=== PATIENT | female | born 1970 | race Caucasian/White ===

== ENCOUNTER 2017-12-07 05:29 | Emergency (ER) | payer BC, SELFPAY ==
[2017-12-07 05:37] VITALS: BP 172/109; PULSE 76; RESP 16; TEMP 36.9; O2SAT 99; BMI 30.9
--- NOTE | 2017-12-07 05:51 | XR_ITS ---
XR chest 2V Ordering Physician: Obdulio Cherry MD Patient Age: 47 years: Female HISTORY: ITS.REASON: epigastric pain Epigastric pain. Nonsmoker TECHNIQUE: PA and lateral chest COMPARISON :Previous 2 view chest from 03/31/2016 series FINDINGS No interval change. Nothing definitely acute. There may be some additional basilar atelectasis particularly at the right base with less optimal inspiration today. The upper lung bermudez appear stable and clear. Mild vascular engorgement but no CHF no pleural effusion. No pneumothorax. Heart normal size with aristeo and mediastinal structures unremarkable. Chest wall and T-spine intact IMPRESSION: Stable chest with no significant findings. There may be some scant additional basilar atelectasis versus 03/31/2016 chest film
--- NOTE | 2017-12-07 05:53 | XR_ITS ---
XR acute abdomen series Ordering Physician: Obdulio Cherry MD Patient Age: 47 years: Female HISTORY: ITS.REASON: epigastric pain TECHNIQUE: Flat and upright views of abdomen. COMPARISON :Chest film from today previous CT abdomen from 2013 FINDINGS . Nonspecific bowel gas pattern. No free air beneath the diaphragm. No bowel dilatation or obstruction. Generous stool is seen at the right colon with moderate gas and stool throughout the transverse and left colon. Gas most generous at the distal transverse colon and hepatic flexure but no bowel dilatation or distention of significance. Scant if any small bowel gas. Negative small bowel pattern. No organomegaly. No significant calcifications. Scattered small phleboliths at the pelvic basin IMPRESSION: Nonspecific bowel gas pattern. No bowel dilatation or obstruction. Moderate stool right colon. Moderate gaseous transverse colon most evident at the hepatic flexure
[2017-12-07 06:10] LABS: Basophils % 0.6 % (0.1-2.0); Eosinophils # 0.1 K/mm3 (0.0-0.4); Eosinophils % 2.4 % (0.1-12.0); Hematocrit 44.3 % (37.0-47.0); Hemoglobin 14.9 g/dL (12.2-16.2); Lymphocytes # 1.3 K/mm3 (0.7-4.5); Lymphocytes % 28.5 K/mm3 (10-50); Mean Corpuscular HGB Conc 33.6 g/dL (31.8-35.4); Mean Corpuscular Hemoglobin 29.3 pg (27.0-31.2); Mean Corpuscular Volume 87.1 fl (81-99); Mean Platelet Volume 7.8 fl (7.4-10.4); Monocytes # 0.3 K/mm3 (0.1-1.0); Neutrophils % 62.7 % (37.0-80.0); Platelet Count 201 K/mm3 (142-424); Red Blood Count 5.09 M/mm3 (4.20-5.40); Red Cell Distribution Width 13.8 % (11.5-17.5); White Blood Count 4.7 K/mm3 (4.8-10.8)
[2017-12-07 06:31] LABS: Anion Gap 11.9 mEq/L (5-15); Blood Urea Nitrogen 13 mg/dL (7-18); Carbon Dioxide 30 mmol/L (21.0-32.0); Chloride 105 mmol/L (98-107); Creatine Kinase 98 U/L (26-192); Creatinine Clearance Estimated 116 mL/min (0-300); Creatinine,Serum 0.77 mg/dL (0.55-1.02); Estimated Glomerular Filt Rate 81 ml/min (>60); GFR (African American) 98 ML/MIN (>60); Glucose 109 mg/dL (74-106); Potassium 3.9 mmoL/L (3.5-5.1); Sodium 143 mmol/L (136-145)
[2017-12-07 06:32] LABS: Alanine Aminotransferase 29 U/L (12-78); Albumin Level 4.3 gm/dL (3.4-5.0); Alkaline Phosphatase 135 U/L (46-116); Amylase 49 U/L (25-125); Aspartate Amino Transferase 15 U/L (15-37); Bilirubin,Total 0.6 mg/dL (0.2-1.0); Calcium 9.6 mg/dL (8.5-10.1); Globulin 4.5 gm/dl (1.3-3.2); Lipase 256 u/L (73-393); Total Protein,Serum 8.8 gm/dL (6.4-8.2)
--- NOTE | 2017-12-07 06:34 | HMH.EDNVD ---
ED Disposition Clinical Impression: Esophageal spasm Disposition: Home, Self-Care Condition on Discharge: Good Instructions: DI for Nausea -- Adult Additional Instructions: call pcp for follow up Referrals: Caridad Oliver APRN [Primary Care Provider] - - Critical Care Critical Care Time: No Attestation: On 12/07/17, the high probability of a clinically significant, sudden or life threatening deterioration of the following system(s) required my full and direct attention, intervention and personal management. The time I documented below is in addition to time spent performing reported procedures but includes the following listed in this critical care notation. Medical Decision Making - Medical Records Medical records reviewed: Yes: I reviewed the patient's medical records. Vital Signs: 12/07/17 05:37 12/07/17 07:18 Temperature 98.4 F Temperature Source Oral Pulse Rate [Right Brachial] 76 79 Respiratory Rate 16 20 Blood Pressure [Right Arm] 172/109 132/84 Blood Pressure Mean [Right Arm] 130 100 Blood Pressure Source [Right Arm] Automatic Cuff Automatic Cuff Blood Pressure Position [Right Arm] Sitting Supine 02 Sat by Pulse Oximetry 99 100 Oxygen Delivery Method Room Air - Lab Data Lab results reviewed: Yes: I reviewed the patient's lab results. Lab Results 12/07/17 06:00: WBC 4.7 L, RBC 5.09, Hgb 14.9, Hct 44.3, MCV 87.1, MCH 29.3, MCHC 33.6, RDW 13.8, Plt Count 201, MPV 7.8, Neut % (Auto) 62.7, Lymph % (Auto) 28.5, [place] % (Auto) 6.0, Eos % (Auto) 2.4, Baso % (Auto) 0.6, Neut # (Auto) 3.0, Lymph # (Auto) 1.3, [place] # (Auto) 0.3, Eos # (Auto) 0.1, Baso # (Auto) 0.0 12/07/17 06:00: Sodium 143, Potassium 3.9, Chloride 105, Carbon Dioxide 30, Anion Gap 11.9, BUN 13, Creatinine 0.77, Estimated Creat Clear 116, Estimated GFR 81, Est GFR ( Amer) 98, Glucose 109 H, Calcium 9.6, Total Bilirubin 0.6, AST 15, ALT 29, Alkaline Phosphatase 135 H, Total Creatine Kinase 98, CK-MB (CK-2) 0.9, CK-MB (CK-2) Rel Index 0.9, Troponin I < 0.02, Total Protein 8.8 H, Albumin 4.3, Globulin 4.5 H, Albumin/Globulin Ratio 1.0 L, Amylase 49, Lipase 256 Result diagrams: 12/07/17 06:00 12/07/17 06:00 Orders (Tests/Meds): ED MEDICATIONS Generic Name Dose Route Start Last Admin Trade Name Freq PRN Reason Stop Dose Admin Sodium Chloride 1,000 mls @ 250 mls/hr 12/07/17 06:00 12/07/17 06:02 Sod Chlor 0.9% 1000ml Bag IV 01/06/18 05:59 250 mls/hr .Q4H SOURAV Administration Discontinued Medications Generic Name Dose Route Start Last Admin Trade Name Freq PRN Reason Stop Dose Admin Famotidine 20 mg 12/07/17 05:51 12/07/17 06:02 Pepcid 20mg/2ml Vial IV 12/07/17 05:52 20 mg ONCE ONE Administration Metoclopramide HCl 5 mg 12/07/17 05:51 12/07/17 06:02 Reglan 10mg/2ml Vial IVP 12/07/17 05:52 5 mg ONCE ONE Administration Ondansetron HCl 4 mg 12/07/17 05:51 12/07/17 06:02 Zofran 4mg/2ml Vial IV 12/07/17 05:52 4 mg ONCE ONE Administration ORDERS Category Date Time Status CT abdomen pelvis wo con Stat Cat Scan 12/07/17 07:23 Ordered Acute abdomen XR series [XR acute abdomen series] Stat Exams 12/07/17 05:53 Taken XR chest 2V Stat Exams 12/07/17 05:51 Taken ECG Request by /Ganga Stat Y 12/07/17 05:51 Ordered - Radiology Data #1 Image(s): Chest, Abdomen Image Reviewed: Yes I reviewed the patient's radiology image Preliminary Findings: Normal/NAD - ECG Data Tracing #1 I reviewed this ECG and interpreted as documented below: Normal Sinus Rhythm: Yes Ischemic changes: non-specific ST-T wave changes - Gabriel Inquiry Pt receiving controlled substance: No Nausea/Vomiting/Diarrhea HPI - General Chief complaint: Nausea/Vomiting/Diarrhea Time Seen by Provider: 12/07/17 06:35 Mode of Arrival: Ambulatory Source of Information: Patient, Spouse, Medical Record Limitations: No Limitations Description of Symptoms (Recalled from ER Triage Doc. by RN): Lud[place]
[2017-12-07 06:44] LABS: CKMB Relative Index 0.9 U/L (0-4.0); Creatine Kinase MB 0.9 mg/ml (0.0-3.6); Troponin I < 0.02 ng/ml (0.00-0.06)
[2017-12-07 07:18] VITALS: BP 132/84; PULSE 79; RESP 20; O2SAT 100
[2017-12-07 07:37] VITALS: BP 132/84; PULSE 78; RESP 18; TEMP 36.7; O2SAT 99
== END 2017-12-07 07:37 | disposition home or self-care (01) ==
PROVIDERS: Emergency Provider Emergency Medicine; Family Provider Nurse Practitioner Family; PCP Nurse Practitioner Family
DX: K22.4 Dyskinesia of esophagus (principal); Z79.899 Other long term (current) drug therapy
CPT/HCPCS: 71046; 74021; 80053; 82150; 82550; 82553; 83690; 84484; 85025; 93005; 93041; 96365; 96374; 96375; 96376; 99283; J2405

== ENCOUNTER → 2018-03-29 09:12 | Outpatient (CLI) | payer BC, SELFPAY ==
[2018-03-29 09:35] LABS: Basophils # 0.1 K/mm3 (0-0.2); Basophils % 0.8 % (0.1-2.0); Eosinophils # 0.1 K/mm3 (0.0-0.4); Hematocrit 47.8 % (37.0-47.0); Hemoglobin 15.5 g/dL (12.2-16.2); Lymphocytes # 1.8 K/mm3 (0.7-4.5); Lymphocytes % 31.4 K/mm3 (10-50); Mean Corpuscular HGB Conc 32.4 g/dL (31.8-35.4); Mean Corpuscular Hemoglobin 28.5 pg (27.0-31.2); Mean Corpuscular Volume 87.8 fl (81-99); Mean Platelet Volume 7.7 fl (7.4-10.4); Monocytes # 0.3 K/mm3 (0.1-1.0); Monocytes % 5.3 % (1.7-9.3); Neutrophils # 3.4 K/mm3 (1.8-7.8); Neutrophils % 60.5 % (37.0-80.0); Platelet Count 266 K/mm3 (142-424); Red Blood Count 5.45 M/mm3 (4.20-5.40); Red Cell Distribution Width 14.2 % (11.5-17.5); White Blood Count 5.6 K/mm3 (4.8-10.8)
--- NOTE | 2018-03-29 09:41 | MM_ITS ---
MM Dig screening mamm BI w/CAD CAD Screening ORDERING PHYSICIAN : Leonora Hansen PATIENT AGE: 47 years GENDER: Female HISTORY. Routine screening mammogram no new complaints noncontributory family history COMPARISON: Previous mammograms: January 2014 and December 2012 & June 2011 . Also right mammogram from August 2014.: TECHNIQUE: Standard CC and MLO images were obtained. R2 CAD reviewed. FINDINGS: Moderate density breast. Diffuse scattered moderate fibroglandular elements No significant new findings when compared to prior studies. Slight regression of fibroglandular elements throughout both breast, when compared to 2014 RIGHT BREAST:No new findings. Follow up one year Subtle stable density right retroareolar region unchanged since multiple prior studies LEFT BREAST:No new findings follow-up in one year IMPRESSION:... Negative Stable bilateral mammogram. No significant new findings been bilateral follow-up in one year recommended BI-RADS Category: 1 Negative RECOMMENDED FOLLOW-UP: 1YR - 1 YEAR FOLLOW-UP (A letter has been sent to the patient regarding results of the study.)
[2018-03-29 13:02] LABS: Alanine Aminotransferase 27 U/L (12-78); Albumin/Globulin Ratio 1.1 (1.1-1.8); Alkaline Phosphatase 117 U/L (46-116); Anion Gap 17.5 mEq/L (5-15); Aspartate Amino Transferase 19 U/L (15-37); Bilirubin,Total 0.5 mg/dL (0.2-1.0); Blood Urea Nitrogen 15 mg/dL (7-18); Calcium 9.8 mg/dL (8.5-10.1); Carbon Dioxide 24 mmol/L (21.0-32.0); Chloride 106 mmol/L (98-107); Chol/HDL Ratio 4.5 (1-3.5); Cholesterol 211 mg/dL (140-200); Creatinine,Serum 0.74 mg/dL (0.55-1.02); Estimated Glomerular Filt Rate 85 ml/min (>60); GFR (African American) 103 ML/MIN (>60); Globulin 3.8 gm/dl (1.3-3.2); Glucose 78 mg/dL (74-106); HDL Cholesterol 47 mg/dL (29-89); LDL Cholesterol 128 mg/dL (0-130); Potassium 4.5 mmoL/L (3.5-5.1); Sodium 143 mmol/L (136-145); Total Protein,Serum 7.8 gm/dL (6.4-8.2); Triglycerides 179 mg/dL (30-200); VLDL Cholesterol 36 mg/dL (0-40)
[2018-03-30 08:24] LABS: Hep A Ab, IgM Negative (Negative); Hepatitis B Core Antibody IgM Negative (Negative); Hepatitis B Surface Antigen Negative (Negative)
[2018-03-30 12:51] LABS: Hepatitis C Antibody <0.1 s/co ratio (0.0-0.9)
== END ==
PROVIDERS: Family Provider Nurse Practitioner Family; PCP Nurse Practitioner Family; Visit Provider Nurse Practitioner Family
DX: Z12.31 Encounter for screening mammogram for malignant neoplasm of breast (principal); Z00.00 Encounter for general adult medical examination without abnormal findings; Z20.5 Contact with and (suspected) exposure to viral hepatitis; E78.1 Pure hyperglyceridemia; K21.0 Gastro-esophageal reflux disease with esophagitis
CPT/HCPCS: 36415; 77067; 80053; 80061; 80074; 85025

== ENCOUNTER → 2018-06-03 15:26 | Outpatient (CLI) | payer BC, SELFPAY ==
--- NOTE | 2018-06-03 15:27 | US_ITS ---
US transvaginal HISTORY: Pelvic pain, painful intercourse ITS.REASON: pelvic pain ORDERING PHYSICIAN: Papito Gomez MD PATIENT AGE: 48 years Comparison: None FINDINGS: There has been a prior hysterectomy and bilateral oophorectomy. The vaginal cuff has an unremarkable appearance. No pelvic mass or abnormal fluid collection is evident. IMPRESSION: Prior hysterectomy and oophorectomy. Otherwise negative pelvic ultrasound
== END ==
PROVIDERS: Family Provider Nurse Practitioner Family; PCP Nurse Practitioner Family; Visit Provider Obstetrics & Gynecology
DX: R10.2 Pelvic and perineal pain (principal)
CPT/HCPCS: 76830

== ENCOUNTER → 2018-06-28 16:03 | Outpatient (CLI) | payer BC, SELFPAY ==
[2018-06-28 16:07] LABS: Microscopic, Urine URINE MICROSCOPIC (MICROSCOPIC)
[2018-06-28 16:20] LABS: Basophils % 0.6 % (0.1-2.0); Eosinophils # 0.1 K/mm3 (0.0-0.4); Hematocrit 40.8 % (37.0-47.0); Hemoglobin 13.6 g/dL (12.2-16.2); Lymphocytes # 1.7 K/mm3 (0.7-4.5); Lymphocytes % 28.9 K/mm3 (10-50); Mean Corpuscular HGB Conc 33.3 g/dL (31.8-35.4); Mean Corpuscular Hemoglobin 29.9 pg (27.0-31.2); Mean Corpuscular Volume 89.6 fl (81-99); Mean Platelet Volume 8.4 fl (7.4-10.4); Monocytes # 0.3 K/mm3 (0.1-1.0); Monocytes % 5.2 % (1.7-9.3); Neutrophils # 3.8 K/mm3 (1.8-7.8); Neutrophils % 64.3 % (37.0-80.0); Platelet Count 232 K/mm3 (142-424); Red Blood Count 4.55 M/mm3 (4.20-5.40); Red Cell Distribution Width 13.9 % (11.5-17.5); White Blood Count 5.9 K/mm3 (4.8-10.8)
[2018-06-28 17:00] LABS: Alanine Aminotransferase 25 U/L (12-78); Albumin Level 4.1 gm/dL (3.4-5.0); Alkaline Phosphatase 95 U/L (46-116); Anion Gap 10.6 mEq/L (5-15); Aspartate Amino Transferase 15 U/L (15-37); Bilirubin,Total 0.4 mg/dL (0.2-1.0); Blood Urea Nitrogen 13 mg/dL (7-18); Carbon Dioxide 28 mmol/L (21.0-32.0); Chloride 108 mmol/L (98-107); Creatinine,Serum 0.69 mg/dL (0.55-1.02); Estimated Glomerular Filt Rate 92 ml/min (>60); GFR (African American) 111 ML/MIN (>60); Glucose 91 mg/dL (74-106); Potassium 4.6 mmoL/L (3.5-5.1); Sodium 142 mmol/L (136-145)
[2018-06-28 17:12] LABS: Albumin/Globulin Ratio 1.3 (1.1-1.8); Globulin 3.1 gm/dl (1.3-3.2); Total Protein,Serum 7.2 gm/dL (6.4-8.2)
[2018-06-28 18:07] LABS: Appearance,Urine CLEAR (Clear); Bilirubin,Urine Negative (Negative); Blood, Urine Negative (Negative); Color,Urine YELLOW (Yellow); Glucose,Urine (UA) Negative (Negative); Ketones,Urine Negative (Negative); Leukocyte Esterase,Urine Negative (Negative); Nitrate,Urine Negative (Negative); Protein,Urine Negative (Negative); Specific Gravity, Urine <= 1.005 (1.005-1.030); Urobilinogen,Urine 0.2 EU/dl (0.2)
[2018-06-28 18:25] LABS: Bacteria,Urine Trace /lpf; Squamous Epithelial Cell,Urine Occasional #/hpf (0-5); WBC,Urine Occasional #/hpf (0-3)
== END ==
PROVIDERS: PCP Nurse Practitioner Family; Visit Provider Obstetrics & Gynecology
DX: Z01.818 Encounter for other preprocedural examination (principal); R10.2 Pelvic and perineal pain; N73.6 Female pelvic peritoneal adhesions (postinfective)
CPT/HCPCS: 36415; 80053; 81001; 85025

== ENCOUNTER → 2018-10-29 13:48 | Outpatient (CLI) | payer BC, SELFPAY ==
[2018-10-29 14:30] LABS: Basophils % 0.5 % (0.1-2.0); Eosinophils # 0.1 K/mm3 (0.0-0.4); Eosinophils % 1.1 % (0.1-12.0); Hemoglobin 12.9 g/dL (12.2-16.2); Lymphocytes # 1.6 K/mm3 (0.7-4.5); Lymphocytes % 30.9 % (10-50); Mean Corpuscular HGB Conc 33.1 g/dL (31.8-35.4); Mean Corpuscular Hemoglobin 29.6 pg (27.0-31.2); Mean Corpuscular Volume 89.3 fl (81-99); Mean Platelet Volume 7.7 fl (7.4-10.4); Monocytes # 0.3 K/mm3 (0.1-1.0); Monocytes % 5.6 % (1.7-9.3); Neutrophils # 3.2 K/mm3 (1.8-7.8); Neutrophils % 61.9 % (37.0-80.0); Platelet Count 260 K/mm3 (142-424); Red Blood Count 4.37 M/mm3 (4.20-5.40); Red Cell Distribution Width 13.9 % (11.5-17.5); White Blood Count 5.1 K/mm3 (4.8-10.8)
[2018-10-29 17:49] LABS: Anion Gap 13.2 mEq/L (5-15); Blood Urea Nitrogen 10 mg/dL (7-18); Calcium 8.8 mg/dL (8.5-10.1); Carbon Dioxide 27 mmol/L (21.0-32.0); Chloride 104 mmol/L (98-107); Estimated Glomerular Filt Rate 77 ml/min (>60); GFR (African American) 93 ML/MIN (>60); Glucose 90 mg/dL (74-106); Potassium 4.2 mmoL/L (3.5-5.1); Sodium 140 mmol/L (136-145)
== END ==
PROVIDERS: Visit Provider Surgery
DX: Z90.49 Acquired absence of other specified parts of digestive tract (principal)
CPT/HCPCS: 36415; 80048; 85025

== ENCOUNTER → 2020-03-22 15:37 | Outpatient (CLI) | payer BC, SELFPAY ==
[2020-03-22 21:15] LABS: Coronavirus 19 IgG Antibody Negative (Negative); Coronavirus 19 IgM Antibody Negative (Negative)
== END ==
PROVIDERS: Visit Provider Surgery
DX: Z01.818 Encounter for other preprocedural examination (principal)
CPT/HCPCS: 36415; 86328

== ENCOUNTER 2020-03-23 07:11 | Day surgery (SDC) | payer BC, SELFPAY ==
[2020-03-23] VITALS (16 sets, daily range): BP systolic 102–121; BP diastolic 48–80; PULSE 73–88; RESP 15–18; TEMP 36.1–36.4; O2SAT 92–99; BMI 31.3
--- NOTE | 2020-03-23 10:43 | P.PN_ITS ---
[facility] Anesthesia Checklist - Patient Identification Patient Identification: Arm Band - Structural Data Admitted From: Home Planned Operative Procedure/s: I&D right axillary hidratinitis Consent for Planned Operative Procedure(s) Verified: Yes Verified Documents: Surgical Consent, History and Physical - NPO Status Verified Time NPO: 00:00 - Additional verifications Anesthesia Reactions: No Hx Blood Transfusions: No Blood Transfusion Reaction: No - Airway Assessment C-Spine Mobility Assessed: Yes (mp2) TMJ Mobility Assessed: Yes Dentition: Good Dentition - Neurological Assessment Level of Consciousness: Awake, Alert - Anesthesia Plan Anesthesia Risk discussed: Yes Anesthesia Plan: Verified ASA Class: II Anesthesia Type: General [facility] History I have reviewed the patient's past medical history: Yes Medical History: Reports:: Gastroesophageal Reflux Disease(GERD), Hepatitis, MRSA (2016- buttock) Denies:: Cancer, Diabetes Mellitus Type 1, Diabetes Mellitus Type 2, Internal Pacemaker, Seizures *Have you ever received a pneumonia vaccine?: No *Have you received a flu vaccine this season?: No Other Medical History: Reports: Other. Denies: Blood Transfusion Reaction Anesthesia experience/problems:: nac Laterality Cases: Bilateral: Carpal Tunnel Release Other Surgeries: Yes: Appendectomy, , Hysterectomy-Total, Tubal Ligation, Other. No: Pacemaker Amputation: No Fractures: No - *Social History Smoking Status: Never smoker Alcohol Intake: never Substance Use Type: denies use *Occupational Status:: employed Housing: house Household Members: significant other *Travel in the last 8 weeks: None Family Hx:: Cancer, Coronary Artery Disease, Diabetes
--- NOTE | 2020-03-23 10:48 | HMH.OPNOTE ---
Date of procedure: 03/23/20 Pre-op Diagnosis:: Abscessed right axillary hidradenitis Post-op Diagnosis:: Same Procedure performed:: Incision and drainage of abscess right axillary hidradenitis Surgeon:: Jeb Mares MD PASTER SUPERVISOR:: Raf Sofia Anesthesia: LMA Estimated blood loss (mL): 5 Operative findings:: Four small abscess pockets Operative note:: After informed consent was obtained the patient was taken to the operating room and placed in the supine position. General anesthesia with laryngeal mask airway was achieved. The right axilla was prepped and draped in a sterile fashion. After infiltration with local anesthetic small elliptical incisions were made around the for central areas of fluctuance. Fluid was obtained for Gram stain/culture from the largest of these 4 pockets of purulence. The 4 cavities were carefully evacuated of all contents and packed with Kerlix after hemostasis was achieved with electrocautery. Dressings were applied and the patient was transferred to recovery in stable condition after removal of her laryngeal mask airway. Condition: stable Disposition: PACU Specimens:: Fluid for Gram stain/culture Complications:: No immediate
--- NOTE | 2020-03-23 10:59 | P.PN_ITS ---
[facility] Anesthesia Record Part I Intake, IV Amount: 400 Estimated blood loss (mL): 5 Urine output (mL): 0 Blood Pressure: 102/48 SaO2: 92 Pulse Rate: 86 Respiratory Rate: 16 Temperature: 97.4 F Patient is:: Drowsy, Stable Stable to PACU at:: 10:55
--- NOTE | 2020-03-23 11:10 | PC.NURSE ---
1057-oral airway removed at this time, 3l/nc in place, vss
--- NOTE | 2020-03-23 15:06 | PC.NURSE ---
1142-detailed report called to RONY Mcwilliams 1145-pt transported to post op via stretcher with luz elena rails up per RONY Victoria, pt left in care of RONY Mcwilliams pt stable
--- NOTE | 2020-03-23 15:48 | P.PN_ITS ---
[facility] Anesthesia Record Part II Discharge Time: 11:45 Destination: Surgical Day Care (OP Surgery) PACU nurse assessment reviewed?: Yes Patient Condition:: Good Anesthesia Complications:: None Swallowing reflex intact?: Yes Cyanosis?: No Blood Pressure: 108/75 Pulse Rate: 79 Temperature: 97.6 F Mental Status: Alert & Oriented Pain level:: 4 Nausea and/or vomitting:: None Intake, IV Amount: 0
== END 2020-03-23 12:30 | disposition home or self-care (01) ==
LOC: OR 07:12
PROVIDERS: PCP Internal Medicine Adolescent Medicine; Visit Provider Surgery
PROC: (CPT 10061; principal; 2020-03-23 08:30)
DX: L73.2 Hidradenitis suppurativa (principal); L02.411 Cutaneous abscess of right axilla; Z87.19 Personal history of other diseases of the digestive system; Z90.710 Acquired absence of both cervix and uterus; Z88.6 Allergy status to analgesic agent; Z79.899 Other long term (current) drug therapy
CPT/HCPCS: 10061; 87070; 87075; 87077; 87186; 87205; 96374; J2405

== ENCOUNTER 2020-03-28 10:37 | Outpatient (CLI) | payer BC, SELFPAY | END 2020-03-28 11:15 | disposition home or self-care (01) | LOC: INF 10:37 | PROVIDERS: Visit Provider Nurse Practitioner | DX: L73.2 Hidradenitis suppurativa (principal); Z48.01 Encounter for change or removal of surgical wound dressing | CPT/HCPCS: G0463 ==

== ENCOUNTER → 2020-03-29 10:39 | Outpatient (CLI) | payer BC, SELFPAY | PROVIDERS: Visit Provider Surgery | DX: Z48.01 Encounter for change or removal of surgical wound dressing (principal); L73.2 Hidradenitis suppurativa | CPT/HCPCS: G0463 ==

== ENCOUNTER 2020-03-30 08:40 | Outpatient (CLI) | payer BC, SELFPAY ==
--- NOTE | 2020-03-30 08:45 | PC.NURSE ---
0845-REMOVED DRESSING FROM RIGHT AXILLA. IRRIGATED 4 WOUNDS WITH NS. REPACKED WITH DRY GAUZE, COVERED WITH 2 DRY 4X4'S. AND TAPED INTO PLACE.
== END 2020-03-30 09:00 | disposition home or self-care (01) ==
LOC: INF 08:43
PROVIDERS: PCP Internal Medicine Adolescent Medicine; Visit Provider Surgery
DX: L73.2 Hidradenitis suppurativa (principal); Z48.01 Encounter for change or removal of surgical wound dressing
CPT/HCPCS: G0463

== ENCOUNTER 2020-03-31 13:07 | Outpatient (CLI) | payer BC, SELFPAY ==
[2020-03-31 13:27] VITALS: BP 115/72; PULSE 76; RESP 16; O2SAT 99
== END 2020-03-31 13:55 | disposition home or self-care (01) ==
LOC: INF 13:08
PROVIDERS: PCP Internal Medicine Adolescent Medicine; Visit Provider Surgery
DX: L73.2 Hidradenitis suppurativa (principal)
CPT/HCPCS: G0463

== ENCOUNTER 2020-04-01 12:59 | Outpatient (CLI) | payer BC, SELFPAY ==
[2020-04-01 13:13] VITALS: BP 110/70; PULSE 73; RESP 16; O2SAT 95
== END 2020-04-01 13:40 | disposition home or self-care (01) ==
LOC: INF 13:00
PROVIDERS: PCP Internal Medicine Adolescent Medicine; Visit Provider Surgery
DX: L73.2 Hidradenitis suppurativa (principal); Z48.01 Encounter for change or removal of surgical wound dressing
CPT/HCPCS: G0463

== ENCOUNTER 2020-04-02 10:56 | Outpatient (CLI) | payer BC, SELFPAY | END 2020-04-02 11:10 | disposition home or self-care (01) | LOC: INF 10:56 | PROVIDERS: Visit Provider Surgery | DX: L73.2 Hidradenitis suppurativa (principal); Z48.01 Encounter for change or removal of surgical wound dressing | CPT/HCPCS: G0463 ==

== ENCOUNTER 2020-04-04 12:06 | Outpatient (CLI) | payer BC, SELFPAY | END 2020-04-04 12:30 | disposition home or self-care (01) | LOC: INF 12:07 | PROVIDERS: Visit Provider Surgery | DX: L73.2 Hidradenitis suppurativa (principal); Z48.01 Encounter for change or removal of surgical wound dressing | CPT/HCPCS: G0463 ==

== ENCOUNTER 2020-04-05 11:05 | Outpatient (CLI) | payer BC, SELFPAY | END 2020-04-05 11:25 | disposition home or self-care (01) | LOC: INF 11:05 | PROVIDERS: Visit Provider Surgery | DX: Z48.01 Encounter for change or removal of surgical wound dressing (principal); L73.2 Hidradenitis suppurativa | CPT/HCPCS: G0463 ==

== ENCOUNTER 2020-04-06 15:45 | Outpatient (CLI) | payer BC, SELFPAY | END 2020-04-06 16:11 | disposition home or self-care (01) | LOC: INF 15:49 | PROVIDERS: Visit Provider Surgery | DX: Z48.01 Encounter for change or removal of surgical wound dressing (principal); L73.2 Hidradenitis suppurativa | CPT/HCPCS: G0463 ==

== ENCOUNTER → 2020-04-07 10:37 | Outpatient (CLI) | payer BC, SELFPAY ==
[2020-04-07 10:55] VITALS: BP 115/76; PULSE 74; RESP 18; TEMP 36.6; O2SAT 97
[2020-04-07 11:05] VITALS: BP 112/74; PULSE 82; RESP 16; TEMP 36.7; O2SAT 97
== END ==
PROVIDERS: PCP Internal Medicine Adolescent Medicine; Visit Provider Surgery
DX: Z48.01 Encounter for change or removal of surgical wound dressing (principal); L73.2 Hidradenitis suppurativa
CPT/HCPCS: G0463

== ENCOUNTER → 2020-04-08 11:57 | Outpatient (CLI) | payer BC, SELFPAY ==
[2020-04-08 14:31] VITALS: BP 117/87; PULSE 81; RESP 16; TEMP 36.8; O2SAT 99; BMI 31.8
== END ==
PROVIDERS: PCP Internal Medicine Adolescent Medicine; Visit Provider Surgery
DX: L73.2 Hidradenitis suppurativa (principal); Z48.01 Encounter for change or removal of surgical wound dressing
CPT/HCPCS: G0463

== ENCOUNTER 2020-04-09 10:42 | Outpatient (CLI) | payer BC, SELFPAY | END 2020-04-09 11:15 | disposition home or self-care (01) | LOC: INF 10:42 | PROVIDERS: Visit Provider Surgery | DX: L73.2 Hidradenitis suppurativa (principal); Z48.01 Encounter for change or removal of surgical wound dressing | CPT/HCPCS: G0463 ==

== ENCOUNTER 2020-04-10 11:54 | Outpatient (CLI) | payer BC, SELFPAY | END 2020-04-10 12:18 | disposition home or self-care (01) | PROVIDERS: Visit Provider Surgery | DX: L73.2 Hidradenitis suppurativa (principal); Z48.01 Encounter for change or removal of surgical wound dressing | CPT/HCPCS: G0463 ==

== ENCOUNTER 2020-04-11 09:15 | Outpatient (CLI) | payer BC, SELFPAY | END 2020-04-11 09:41 | disposition home or self-care (01) | LOC: INF 09:18 | PROVIDERS: Visit Provider Surgery | DX: L73.2 Hidradenitis suppurativa (principal); Z48.01 Encounter for change or removal of surgical wound dressing | CPT/HCPCS: G0463 ==

== ENCOUNTER 2020-04-12 09:27 | Outpatient (CLI) | payer BC, SELFPAY | END 2020-04-12 09:40 | disposition home or self-care (01) | LOC: INF 09:27 | PROVIDERS: Visit Provider Surgery | DX: L73.2 Hidradenitis suppurativa (principal); Z48.01 Encounter for change or removal of surgical wound dressing | CPT/HCPCS: G0463 ==

== ENCOUNTER 2020-04-13 08:35 | Outpatient (CLI) | payer BC, SELFPAY ==
--- NOTE | 2020-04-13 12:55 | PC.NURSE ---
0850 - CLEANED RIGHT AXILLA WITH NS AND PATTED DRY. FOLDED 4X4 IN HALF AND TAPED OVER WOUNDS PT REPORTED THEY HAVE STILL BEEN DRAINING A SMALL AMOUNT. PER DR DALTON PT DOES NOT HAVE TO CONTINUE COMING IN FOR DRESSING CHANGES. ENCOURAGED PT TO REMOVE GAUZE WHEN AT HOME AND LET AIR OUT. PT TO CONTINUE GAUZE OVERTOP NEEDED AND F/U WITH DR DALTON ON 04/18/20.
== END 2020-04-13 09:05 | disposition home or self-care (01) ==
LOC: INF 08:39
PROVIDERS: Visit Provider Surgery
DX: L73.2 Hidradenitis suppurativa (principal); Z48.01 Encounter for change or removal of surgical wound dressing
CPT/HCPCS: G0463

== ENCOUNTER 2020-05-20 12:58 | Emergency (ER) | payer BC, SELFPAY ==
[2020-05-20 13:05] VITALS: BP 125/85; PULSE 109; RESP 14; TEMP 37.3; O2SAT 98; BMI 31.8
--- NOTE | 2020-05-20 13:29 | HMH.EDUTC ---
[facility] Disposition Clinical Impression: Skin abscess Qualifiers: Site of cutaneous abscess: trunk Site of cutaneous abscess of trunk: abdominal wall Qualified Code(s): L02.211 - Cutaneous abscess of abdominal wall Cellulitis Qualifiers: Site of cellulitis: trunk Site of cellulitis of trunk: abdominal wall Qualified Code(s): L03.311 - Cellulitis of abdominal wall Disposition: Home, Self-Care Condition on Discharge: Good Instructions: Cellulitis, Boil Additional Instructions: Keep the affected area clean and dry. Follow up with your regular doctor. Take the antibiotics as directed and apply the topical antibiotics as directed. Apply warm wet compresses to the affected area three or four times per day. GO TO THE ER FOR ANY WORSENING SYMPTOMS Prescriptions: Sulfamethoxazole/Trimethoprim [Bactrim DS tablet] 1 each PO BID 10 Days #20 tab Transmission Status: Received by [facility] #[id number] Mupirocin [Bactroban 2% Ointment 22gm tube] 1 applicatio TP TID 7 Days #1 tube Transmission Status: Received by [facility] #[id number] cephALEXin [Keflex 500mg Cap] 500 mg PO Q6H 10 Days #40 cap Transmission Status: Received by [facility] #[id number] Referrals: Howard Graff MD [Primary Care Provider] - Forms: Work/School Release Time of Disposition: 13:32 Medical Decision Making - Medical Records Medical records reviewed: No: I reviewed the patient's medical records. - Gabriel Inquiry Pt receiving controlled substance: No Vital Signs: 05/20/20 13:05 05/20/20 13:45 Temperature 99.1 F 99.1 F Temperature Source Oral Oral Pulse Rate 109 H Pulse Rate [Radial] 109 H Respiratory Rate 14 14 Blood Pressure 125/85 Blood Pressure [Right Arm] 125/85 Blood Pressure Mean [Right Arm] 98 Blood Pressure Source Automatic Cuff Blood Pressure Source [Right Arm] Automatic Cuff Blood Pressure Position Sitting Blood Pressure Position [Right Arm] Sitting 02 Sat by Pulse Oximetry 98 Oxygen Delivery Method Room Air Room Air Orders (Tests/Meds): ED MEDICATIONS Discontinued Medications Generic Name Dose Route Start Last Admin Trade Name Freq PRN Reason Stop Dose Admin Ceftriaxone Sodium 1 gm 05/20/20 13:22 05/20/20 13:48 Rocephin 1gm Vial IM 05/20/20 13:23 1 gm ONCE ONE Administration Protocol Lidocaine HCl 0 ml 05/20/20 13:22 05/20/20 13:49 Lidocaine 1% 10ml Mdv IM 05/20/20 13:23 2.1 ml ONCE ONE Administration [facility] HPI - General Stated complaint: spider bite L hip Time Seen by Provider: 05/20/20 13:15 Mode of Arrival: Ambulatory Source of Information: Patient Limitations: No Limitations Description of Symptoms (Recalled from Triage Doc. by RN): Spider bite HEENT Symptoms (Recalled from RN notes): No Resp Symptoms (Recalled from RN notes): No Skin Symptoms (Recalled from RN notes): Yes MS Symptoms (Recalled from RN notes): No Functional Status (Recalled from RN notes): wnl - History of Present Illness Provider Complaint: She c/o having a red sore area on her left flank. It has been present for the past 2 days. She states that it is getting more red and painful as time goes on. - Related Data Home Medications Medication Instructions Recorded Confirmed Omeprazole [Omeprazole 40mg 40 mg PO DAILY 12/07/17 04/18/20 Capsule] Leuprolide Acetate [Lupron Depot] 3.75 mg IM QMONTH 11/04/18 04/18/20 ondansetron HCL [Ondansetron HCl] 4 mg PO Q8H 04/02/20 04/18/20 Previous Rx's Medication Instructions Recorded Hydrocod/Acet 5/325 mg [[place] 1 - 2 tab PO Q6HP PRN 17 Days tab 03/23/20 5/325mg tablet] Mupirocin [Bactroban 2% Ointment 1 applicatio TP TID 7 Days #1 tube 05/20/20 22gm tube] Sulfamethoxazole/Trimethoprim 1 each PO BID 10 Days #20 tab 05/20/20 [Bactrim DS tablet] cephALEXin [Keflex 500mg Cap] 500 mg PO Q6H 10 Days #40 cap 05/20/20 Allergies Allergy/AdvReac Type Severity Reaction Status Date / Time
[2020-05-20 13:45] VITALS: BP 125/85; PULSE 109; RESP 14; TEMP 37.3; O2SAT 98
== END 2020-05-20 13:49 | disposition home or self-care (01) ==
PROVIDERS: Emergency Provider Nurse Practitioner Family; PCP Internal Medicine Adolescent Medicine
DX: L02.211 Cutaneous abscess of abdominal wall (principal); K21.9 Gastro-esophageal reflux disease without esophagitis; Z90.710 Acquired absence of both cervix and uterus; Z90.49 Acquired absence of other specified parts of digestive tract
CPT/HCPCS: 96372; 99201

== ENCOUNTER → 2020-05-29 09:55 | Outpatient (CLI) | payer BC, SELFPAY ==
[2020-05-29 09:58] LABS: MANUAL DIFFERENTIAL MANUAL DIFFERENTIAL (MANUAL DIFF)
[2020-05-29 10:28] LABS: Basophils % 0.7 % (0.1-2.0); Eosinophils # 0.1 K/mm3 (0.0-0.4); Eosinophils % 2.3 % (0.1-12.0); Hemoglobin 14.3 g/dL (12.2-16.2); Lymphocytes # 1.8 K/mm3 (0.7-4.5); Mean Corpuscular HGB Conc 33.9 g/dL (31.8-35.4); Mean Corpuscular Hemoglobin 29.8 pg (27.0-31.2); Mean Corpuscular Volume 87.9 fl (81-99); Mean Platelet Volume 8.1 fl (7.4-10.4); Monocytes # 0.2 K/mm3 (0.1-1.0); Monocytes % 4.6 % (1.7-9.3); Neutrophils # 2.5 K/mm3 (1.8-7.8); Neutrophils % 53.3 % (37.0-80.0); Platelet Count 288 K/mm3 (142-424); Red Blood Count 4.78 M/mm3 (4.20-5.40); White Blood Count 4.7 K/mm3 (4.8-10.8)
[2020-05-29 10:58] LABS: Anion Gap 12.6 mEq/L (5-15); Blood Urea Nitrogen 15 mg/dl (7-17); Calcium 9.6 mg/dl (8.4-10.2); Carbon Dioxide 29 mmol/L (22.0-30.0); Chloride 103 mmol/L (98-107); Estimated Glomerular Filt Rate 89 ml/min (>60); GFR (African American) 108 ML/MIN (>60); Glucose 104 mg/dl (74-100); Potassium 4.6 mmoL/L (3.5-5.1); Sodium 140 mmol/L (136-145)
[2020-05-29 11:06] LABS: Lymphocytes % 39 % (10-50); Monocytes % 1 % (2-9); Neutrophils % 60 % (42-76); Platelet Estimate Normal; RBC Morphology Normal; Total Cells Counted 100
[2020-05-29 12:52] LABS: Coronavirus 19 IgG Antibody Negative (Negative); Coronavirus 19 IgM Antibody Negative (Negative)
== END ==
PROVIDERS: Visit Provider Surgery
DX: L02.91 Cutaneous abscess, unspecified (principal); Z20.828 Contact with and (suspected) exposure to other viral communicable diseases
CPT/HCPCS: 36415; 80048; 85007; 85014; 85018; 85048; 85049; 86328

== ENCOUNTER 2020-05-30 06:02 | Day surgery (SDC) | payer BC, SELFPAY ==
[2020-05-28 08:25] VITALS: BMI 31.8
[2020-05-30 06:15] VITALS: BP 125/82; PULSE 71; RESP 18; TEMP 36.2; O2SAT 97
--- NOTE | 2020-05-30 06:40 | HMH.ANESCL ---
[facility] Anesthesia Checklist - Structural Data Admitted From: Home Planned Operative Procedure/s: i/d j hip Consent for Planned Operative Procedure(s) Verified: Yes - Additional verifications Anesthesia Reactions: No Hx Blood Transfusions: No Blood Transfusion Reaction: No - Airway Assessment C-Spine Mobility Assessed: Yes TMJ Mobility Assessed: Yes Dentition: Good Dentition - Neurological Assessment Level of Consciousness: Awake, Alert, Appropriate - Anesthesia Plan Anesthesia Risk discussed: Yes Anesthesia Plan: Verified ASA Class: II Anesthesia Type: General [facility] History I have reviewed the patient's past medical history: Yes Medical History: Reports:: Gastroesophageal Reflux Disease(GERD), Hepatitis Denies:: Cancer, Diabetes Mellitus Type 1, Diabetes Mellitus Type 2, Internal Pacemaker, MRSA, Seizures *Have you ever received a pneumonia vaccine?: No *Have you received a flu vaccine this season?: No Other Medical History: Reports: Other. Denies: Blood Transfusion Reaction Anesthesia experience/problems:: none Laterality Cases: Bilateral: Carpal Tunnel Release Other Surgeries: Yes: Appendectomy, , Hysterectomy-Total, Tubal Ligation, Other (esophageal surgery). No: Pacemaker Amputation: No Fractures: No - *Social History Last grade of school completed: Advanced degree Smoking Status: Never smoker Alcohol Intake: never Substance Use Type: denies use *Occupational Status:: employed Housing: house Household Members: family, children *Travel in the last 8 weeks: None Family Hx:: No significant family history
--- NOTE | 2020-05-30 07:21 | HMH.OPNOTE ---
Date of procedure: 05/30/20 Pre-op Diagnosis:: left hip/flank abscess Post-op Diagnosis:: same Procedure performed:: Incision and drainage of left hip/flank abscess Surgeon:: Jeb Mares MD INSTALL TECHNICIAN:: Rudy Esparza Anesthesia: MAC, local Estimated blood loss (mL): 5 Operative findings:: Improvement over the past few days with regard to induration/erythema on antibiotic coverage (no complete resolution) Small area of central fluctuance in pocket of purulence remained Operative note:: After informed consent was obtained the patient was taken to the operating room and placed in the supine position. Monitored anesthesia care ensued. Her left flank/hip was prepped and draped in a sterile fashion. After infiltration local anesthetic an incision was made around the central portion of the abscess. Electrocautery was utilized to transect the deeper subcutaneous tissue. A small pocket with purulence was encountered. The fluid was obtained for Gram stain/culture. The entire cavity was evacuated and packed with gauze. Dressings were applied and the patient was transferred to recovery in stable condition. Condition: stable Disposition: PACU Specimens:: Fluid for Gram stain/culture Complications:: No immediate
[2020-05-30 07:25] VITALS: BP 115/79; PULSE 85; RESP 18; TEMP 36.2; O2SAT 90
[2020-05-30 07:35] VITALS: BP 116/85; PULSE 82; RESP 18; O2SAT 97
[2020-05-30 07:45] VITALS: BP 118/81; PULSE 76; RESP 18; O2SAT 98
[2020-05-30 08:01] VITALS: BP 113/77; PULSE 74; RESP 18; O2SAT 96
[2020-05-30 08:06] VITALS: TEMP 43
== END 2020-05-30 08:01 | disposition home or self-care (01) ==
LOC: OR 06:04
PROVIDERS: PCP Internal Medicine Adolescent Medicine; Visit Provider Surgery
PROC: (CPT 10061; principal; 2020-05-30 07:30)
DX: L02.211 Cutaneous abscess of abdominal wall (principal); K21.9 Gastro-esophageal reflux disease without esophagitis; K75.9 Inflammatory liver disease, unspecified; Z90.49 Acquired absence of other specified parts of digestive tract; Z87.39 Personal history of other diseases of the musculoskeletal system and connective tissue; Z79.899 Other long term (current) drug therapy; Z88.6 Allergy status to analgesic agent; Z86.14 Personal history of Methicillin resistant Staphylococcus aureus infection
CPT/HCPCS: 10061; 87070; 87075; 87186; 87205; 96374

== ENCOUNTER 2020-05-31 14:04 | Outpatient (CLI) | payer BC, SELFPAY | END 2020-05-31 14:16 | disposition home or self-care (01) | LOC: INF 14:04 | PROVIDERS: Visit Provider Surgery | DX: L02.211 Cutaneous abscess of abdominal wall (principal); Z48.01 Encounter for change or removal of surgical wound dressing | CPT/HCPCS: G0463 ==

== ENCOUNTER 2020-06-01 12:50 | Outpatient (CLI) | payer BC, SELFPAY | END 2020-06-01 13:00 | disposition home or self-care (01) | LOC: INF 12:50 | PROVIDERS: Visit Provider Surgery | DX: L02.211 Cutaneous abscess of abdominal wall (principal); Z48.00 Encounter for change or removal of nonsurgical wound dressing | CPT/HCPCS: G0463 ==

== ENCOUNTER → 2020-06-03 09:43 | Outpatient (CLI) | payer BC, SELFPAY ==
[2020-06-03 09:43] VITALS: BP 114/83; PULSE 84; RESP 16; TEMP 37.2; O2SAT 98
[2020-06-03 10:13] VITALS: BP 116/81; PULSE 86; RESP 18; TEMP 37.1; O2SAT 98
== END ==
PROVIDERS: PCP Internal Medicine Adolescent Medicine; Visit Provider Surgery
DX: L02.211 Cutaneous abscess of abdominal wall (principal); Z48.00 Encounter for change or removal of nonsurgical wound dressing
CPT/HCPCS: G0463

== ENCOUNTER → 2020-06-06 14:09 | Outpatient (CLI) | payer BC, SELFPAY ==
--- NOTE | 2020-06-06 14:12 | MM_ITS ---
PROCEDURE: MM DIG SCREENING MAMM BI W/CAD Digital Breast Tomosynthesis Included CLINICAL INDICATION: SCREENING There is no personal or family history of breast cancer. COMPARISON: MG DMSB DIG MAMM-SCREEN DARLENE from 01/31/2014 MG DMDXUR DIG MAMM-DX UNI-RT from 08/16/2014 MG SCBI MM Dig screening mamm BI w/CAD from 03/29/2018 TECHNIQUE: Standard CC and MLO images and 3D Tomosynthesis was obtained. R2 CAD reviewed. FINDINGS: Scattered fibroglandular densities are seen in both breasts on a background of fatty breast parenchyma. The findings are fairly symmetrical bilaterally. There has been some progressive fatty replacement of the breast parenchyma when compared to multiple previous studies. There is no suspicious lesion and no suspicious microcalcifications. There are fatty replaced nodes in both axilla. IMPRESSION: Fibrofatty parenchyma with no suspicious lesions seen BI-RAD Category: 1 Negative FOLLOW-UP: 1YR 1 Year Follow-up (A letter has been sent to the patient regarding results of the study.) Dictated by: Dr. Rick Heath MD 06/09/2020 17:09 Dr. Rick Heath MD in [place] 06/09/2020 17:09
== END ==
PROVIDERS: PCP Internal Medicine Adolescent Medicine; Visit Provider Internal Medicine Adolescent Medicine
DX: Z12.31 Encounter for screening mammogram for malignant neoplasm of breast (principal)
CPT/HCPCS: 77063; 77067

== ENCOUNTER → 2020-10-11 13:15 | Outpatient (CLI) | payer BC, SELFPAY ==
[2020-10-11 14:26] LABS: Coronavirus 19 IgG Antibody Negative (Negative); Coronavirus 19 IgM Antibody Negative (Negative)
== END ==
PROVIDERS: Visit Provider Nurse Practitioner Family
DX: Z03.818 Encounter for observation for suspected exposure to other biological agents ruled out (principal)
CPT/HCPCS: 36415; 86328

== ENCOUNTER → 2020-10-17 13:00 | Outpatient (CLI) | payer BC, SELFPAY ==
--- NOTE | 2020-10-17 13:04 | XR_ITS ---
PROCEDURE: XR HAND RT MIN 3V CLINICAL INDICATION: RT HAND PAIN COMPARISON: No exams were available for comparison FINDINGS: No fracture or dislocation. No lytic or blastic change. There is normal mineralization. There are mild osteoarthritis of the 1st interphalangeal joint and at the 3rd and 4th DIP joint. No erosive changes are evident. Other findings:None. IMPRESSION: Mild osteoarthritis Dictated by: Bruce Harrison MD 10/17/2020 17:59 Bruce Harrison MD in [place] 10/17/2020 17:59
== END ==
PROVIDERS: PCP Internal Medicine Adolescent Medicine; Visit Provider Internal Medicine Adolescent Medicine
DX: M79.641 Pain in right hand (principal)
CPT/HCPCS: 73130

== ENCOUNTER → 2020-11-28 08:50 | Outpatient (CLI) | payer BC, SELFPAY ==
--- NOTE | 2020-11-28 08:50 | FL_ITS ---
PROCEDURE: FL BARIUM SWALLOW CLINICAL INDICATION: difficult and painful swallowing History of esophageal surgery in 2017. COMPARISON: CT ABDPELW CT ABD PELVIS W/ CONTRAST from 01/31/2014 FINDINGS: Patient ingested crystals and barium by mouth and experience difficulty swallowing and pain during ingestion. There is a normal swallow mechanism. There is no aspiration. There is severe dilatation of the esophagus from the thoracic inlet to the diaphragm. Minimal peristalsis is present. There is a beaked appearance at the GE junction with slow transit of liquid into the stomach. There is contrast opacification of the duodenum on supine imaging. Distal esophageal diameter exceeds 5 centimeters. There was minimal passage of ingested gas from the esophagus into the stomach. IMPRESSION: Severe narrowing of the distal esophagus at the EG junction with severe diffuse dilatation of the esophagus with abnormal peristalsis. Dictated by: Radha Maldonado 11/28/2020 10:20 Radha Maldonado in [place] 11/28/2020 10:20
== END ==
LOC: RAD 08:50
PROVIDERS: PCP Internal Medicine Adolescent Medicine; Visit Provider Surgery
DX: K22.4 Dyskinesia of esophagus (principal)
CPT/HCPCS: 74220

== ENCOUNTER 2020-12-14 15:00 | Outpatient (RCR) | payer BC, SELFPAY | END 2020-12-14 15:05 | disposition home or self-care (01) | LOC: OT 15:00 | PROVIDERS: PCP Internal Medicine Adolescent Medicine; Visit Provider Orthopaedic Surgery Hand Surgery | DX: M65.841 Other synovitis and tenosynovitis, right hand (principal); M25.531 Pain in right wrist | CPT/HCPCS: 97014; 97035; 97110; 97140; 97165; G0283 ==

== ENCOUNTER → 2020-12-17 15:12 | Outpatient (CLI) | payer BC, SELFPAY ==
--- NOTE | 2020-12-17 15:15 | XR_ITS ---
PROCEDURE: XR MULTIPLE SPINE 6+V CLINICAL INDICATION: THORACIC SPINE PAIN, CERVICALGIA Pain COMPARISON: No exams were available for comparison FINDINGS: Cervical spine: Straightening of the cervical lordosis. There is degenerative disc disease at C5-C6 with small endplate osteophytes. No significant foraminal narrowing. No acute fracture or dislocation. Thoracic spine: Normal alignment. No acute fracture or dislocation. Mild degenerative disc disease is present in the lower thoracic spine with small anterior osteophytes. IMPRESSION: Cervical and thoracic spondylosis as described above. Dictated by: Bruce Harrison MD 12/18/2020 07:25 Bruce Harrison MD in [place] 12/18/2020 07:25
== END ==
PROVIDERS: PCP Internal Medicine Adolescent Medicine; Visit Provider Internal Medicine Adolescent Medicine
DX: M54.2 Cervicalgia (principal); M54.6 Pain in thoracic spine
CPT/HCPCS: 72084

== ENCOUNTER → 2020-12-20 10:00 | Outpatient (CLI) | payer BC, SELFPAY ==
[2020-12-20 14:48] LABS: Basophils % 0.8 % (0.1-2.0); Eosinophils # 0.1 K/mm3 (0.0-0.4); Eosinophils % 2.5 % (0.1-12.0); Hematocrit 42.5 % (37.0-47.0); Hemoglobin 14.1 g/dL (12.2-16.2); Lymphocytes # 1.8 K/mm3 (0.7-4.5); Mean Corpuscular HGB Conc 33.3 g/dL (31.8-35.4); Mean Corpuscular Hemoglobin 29.7 pg (27.0-31.2); Mean Corpuscular Volume 89.2 fl (81-99); Mean Platelet Volume 8.8 fl (7.4-10.4); Monocytes # 0.3 K/mm3 (0.1-1.0); Monocytes % 5.3 % (1.7-9.3); Neutrophils # 2.5 K/mm3 (1.8-7.8); Neutrophils % 53.4 % (37.0-80.0); Platelet Count 243 K/mm3 (142-424); Red Blood Count 4.77 M/mm3 (4.20-5.40); Red Cell Distribution Width 14.2 % (11.5-17.5); White Blood Count 4.6 K/mm3 (4.8-10.8)
[2020-12-20 14:52] LABS: Uric Acid 5.3 mg/dl (2.5-6.2)
[2020-12-20 14:59] LABS: C-Reactive Protein 1.4 mg/L (0-4)
[2020-12-20 15:20] LABS: Erythrocyte Sedimentation Rate 19 mm/hr (0-20)
[2020-12-22 18:03] LABS: RA Latex Turbid. <10.0 IU/mL (0.0-13.9)
[2020-12-25 14:19] LABS: Antinuclear Antibodies, IFA Negative (.)
== END ==
PROVIDERS: Visit Provider Orthopaedic Surgery Hand Surgery
DX: M79.642 Pain in left hand (principal); M79.641 Pain in right hand
CPT/HCPCS: 36415; 84550; 85025; 85651; 86038; 86140; 86431

== ENCOUNTER → 2020-12-31 11:22 | Outpatient (CLI) | payer BC, SELFPAY | PROVIDERS: PCP Internal Medicine Adolescent Medicine; Visit Provider Orthopaedic Surgery Hand Surgery | DX: Z01.818 Encounter for other preprocedural examination (principal); Z20.822 Contact with and (suspected) exposure to COVID-19 | CPT/HCPCS: U0003 ==

== ENCOUNTER 2021-01-02 11:00 | Outpatient (RCR) | payer BC, SELFPAY ==
--- NOTE | 2020-12-27 10:15 | HMH.PTOPEV ---
PT Outpatient Evaluation Rehab PT Outpatient Evaluation Start: 12/27/20 09:04 Freq: Status: Active Protocol: Document 12/27/20 09:53 ADAN (Rec: 12/27/20 10:15 [email or web address] [id number]) Electronically Signed By Enrique Cartwright, PT 12/27/20 09:53 Outpatient Therapy Subjective History Subjective History Patient is a 50 year old female presenting to outpatient PT with reports of chronic cervical/thoracic/ lumbar spine pain. Main concern at this point is cervical/upper thoracic spine pain. No specific mechanism of injury to report. Most recent imaging indicates cervical and thoracic spondylosis. Comorbidities include hx of B CTR sx, hx of multiple abdominal sx and esophageal achalasia surgery. Chief Complaint Pain,Spasms,Stiff,Paresthesia Symptom Type Ache,Sharp,Numbness,Tingling Symptoms Relieved By Ice,Prescription Meds Symptoms Aggravated By Bending/Stooping,Physical Activity,Lifting Prior Functional Limitations None Current Functional Limitations Reaching,Lifting,Housework, Desk Work/Reading,Driving, Sleeping,Recreation Activity, Walking,Bending/Stooping Symptom Description Constant but Variable Level of pain today (0-10) 5 Pain scale - at its best (0-10) 2 Pain scale - at its worst (0-10) 7 Cervical Eval Palpation Cervical Muscles L Cervical Paraspinal,L Suboccipital,L CT Junction,L Upper Trapezius,L Thoracic Paraspinals Cervical/Thoracic Palpation Findings Tenderness Posture Head/C-Spine Posture Sitting Position C-Spine Flattened Head/C-Spine Posture Standing Position C-Spine Flattened Flexibility Deficits Upper Trapezius Muscle Length (L) Moderate Tightness Levaetor Scapulae Muscle Length (L) Moderate Tightness Pectoralis Minor Muscle Length (R) Moderate Tightness,(L) Moderate Tightness Passive Joint Mobility Cervical PIVM WNL: R OA L OA R AA L AA R C2/3 L C2/3 R C3/4 L C3/4
== END 2021-01-02 11:05 | disposition home or self-care (01) ==
LOC: PT 11:00
PROVIDERS: PCP Internal Medicine Adolescent Medicine; Visit Provider Internal Medicine Adolescent Medicine
DX: M47.9 Spondylosis, unspecified (principal)
CPT/HCPCS: 20560; 97010; 97014; 97110; 97140; 97163; G0283

== ENCOUNTER 2021-01-05 18:47 | Emergency (ER) | payer BC, SELFPAY ==
[2021-01-05 19:00] VITALS: BP 117/79; PULSE 86; RESP 14; TEMP 37.2; O2SAT 95; BMI 31.8
--- NOTE | 2021-01-05 19:32 | CT_ITS ---
PROCEDURE: CT ANGIO CHEST CLINCIAL INDICATION: post-op sob COMPARISON: RF FL BARIUM SWALLOW from 11/28/2020 TECHNIQUE: IV Contrast: 70ML Isovue 370 Axial images obtained with sagittal and coronal reformats. All CT scans at the facility use one or more dose reduction, viz: automated exposure control, ma/kV adjustment per patient size (including targeted exams where dose is matched to indication, i.e. head), or iterative reconstruction technique. FINDINGS: HEART AND MEDIASTINAL STRUCTURES: There is excellent vascular opacification. Cardiac size is normal. There is no CT evidence of pulmonary emboli. There is no evidence of aortic dissection. LUNGS AND PLEURAL SPACES: There are patchy ill-defined opacities in the perihilar regions and lower lobes bilaterally. There may be some chronic interstitial changes present as well. There is no pleural fluid. BONY STRUCTURES: Minimal degenerate changes of the thoracic spine are noted. UPPER ABDOMEN: There is prominent diffuse dilatation of the thoracic esophagus in this lady with history of previous esophageal surgery. There is an air-fluid level in the mid thoracic esophagus just below the level of the herb. There does appear to be tapered narrowing of the distal esophagus at the esophagogastric junction. There is history of previous esophageal surgery. ADDITIONAL FINDINGS: No other significant abnormalities. IMPRESSION: 1. No evidence of pulmonary emboli 1. Patchy bilateral ill-defined perihilar and lower lobe pneumonic infiltrates possibly secondary to chronic aspiration in view of the esophageal abnormalities. Dictated by: Dr. Rick Heath MD 01/06/2021 08:21 Dr. Rick Heath MD in [place] 01/06/2021 08:21
[2021-01-05 19:48] VITALS: BP 118/84; PULSE 87; RESP 19; TEMP 36.9; O2SAT 97; BMI 31.8
[2021-01-05 20:21] LABS: Basophils % 0.5 % (0.1-2.0); Eosinophils # 0.1 K/mm3 (0.0-0.4); Eosinophils % 1.5 % (0.1-12.0); Hematocrit 41.4 % (37.0-47.0); Hemoglobin 14.1 g/dL (12.2-16.2); Lymphocytes # 1.7 K/mm3 (0.7-4.5); Lymphocytes % 22.1 % (10-50); Mean Corpuscular HGB Conc 34.1 g/dL (31.8-35.4); Mean Corpuscular Hemoglobin 29.9 pg (27.0-31.2); Mean Corpuscular Volume 87.7 fl (81-99); Mean Platelet Volume 8.3 fl (7.4-10.4); Monocytes # 0.5 K/mm3 (0.1-1.0); Monocytes % 6.7 % (1.7-9.3); Neutrophils # 5.4 K/mm3 (1.8-7.8); Neutrophils % 69.2 % (37.0-80.0); Platelet Count 237 K/mm3 (142-424); Red Blood Count 4.72 M/mm3 (4.20-5.40); Red Cell Distribution Width 14.1 % (11.5-17.5); White Blood Count 7.8 K/mm3 (4.8-10.8)
[2021-01-05 20:35] LABS: Anion Gap 12.9 mEq/L (5-15); Blood Urea Nitrogen 11 mg/dl (7-17); Calcium 9.7 mg/dl (8.4-10.2); Carbon Dioxide 25 mmol/L (22.0-30.0); Chloride 108 mmol/L (98-107); Creatinine Clearance Estimated 127 mL/min (50-200); Estimated Glomerular Filt Rate 89 ml/min (>60); GFR (African American) 108 ML/MIN (>60); Glucose 106 mg/dl (74-100); Potassium 3.9 mmoL/L (3.5-5.1); Sodium 142 mmol/L (136-145)
[2021-01-05 20:56] LABS: HCG,Quantitative < 2 mIU/ml (0-5.42)
--- NOTE | 2021-01-05 22:04 | HMH.EDSOB ---
ED Disposition Clinical Impression: Acute dyspnea, Hiatal hernia Disposition: Home, Self-Care Condition on Discharge: Good Instructions: DI for Hiatal Hernia Additional Instructions: call pcp for follow up and trial of meds Prescriptions: Metoclopramide HCl [Reglan 10mg Tab] 10 mg PO TID #21 tab Prescription Printed Referrals: Rogerio Mays MD [Primary Care Provider] - - Critical Care Critical Care Time: No Attestation: On 01/05/21, the high probability of a clinically significant, sudden or life threatening deterioration of the following system(s) required my full and direct attention, intervention and personal management. The time I documented below is in addition to time spent performing reported procedures but includes the following listed in this critical care notation. Medical Decision Making - Medical Records Medical records reviewed: Yes: I reviewed the patient's medical records. - Gabriel Inquiry Pt receiving controlled substance: No Vital Signs: 01/05/21 19:00 01/05/21 19:48 Temperature 98.9 F 98.4 F Temperature Source Oral Oral Pulse Rate [Right] 86 87 Respiratory Rate 14 19 Blood Pressure [Right Arm] 117/79 118/84 Blood Pressure Mean [Right Arm] 91 95 Blood Pressure Source [Right Arm] Automatic Cuff Blood Pressure Position [Right Arm] Sitting 02 Sat by Pulse Oximetry 95 97 Oxygen Delivery Method Room Air Room Air - Lab Data Lab results reviewed: Yes: I reviewed the patient's lab results. Lab Results 01/05/21 20:13: WBC 7.8, RBC 4.72, Hgb 14.1, Hct 41.4, MCV 87.7, MCH 29.9, MCHC 34.1, RDW 14.1, Plt Count 237, MPV 8.3, Neut % (Auto) 69.2, Lymph % (Auto) 22.1, [place] % (Auto) 6.7, Eos % (Auto) 1.5, Baso % (Auto) 0.5, Neut # (Auto) 5.4, Lymph # (Auto) 1.7, [place] # (Auto) 0.5, Eos # (Auto) 0.1, Baso # (Auto) 0.0 01/05/21 20:13: Sodium 142, Potassium 3.9, Chloride 108 H, Carbon Dioxide 25, Anion Gap 12.9, BUN 11, Creatinine 0.70, Estimated Creat Clear 127, Estimated GFR 89, Est GFR ( Amer) 108, Glucose 106 H, Calcium 9.7, HCG, Quant < 2 Result diagrams: 01/05/21 20:13 01/05/21 20:13 Orders (Tests/Meds): ED MEDICATIONS Generic Name Dose Route Start Last Admin Trade Name Freq PRN Reason Stop Dose Admin Sodium Chloride 8 ml 01/05/21 21:53 Sodium Chloride 0.9% 10ml Vial IV 02/04/21 21:52 NEEDED PRN dilute pepcid Discontinued Medications Generic Name Dose Route Start Last Admin Trade Name Freq PRN Reason Stop Dose Admin Famotidine 20 mg 01/05/21 21:53 01/05/21 21:55 Famotidine 20mg/2ml Vial IV 01/05/21 21:54 20 mg ONCE ONE Administration Iopamidol 70 ml 01/05/21 21:13 01/05/21 21:14 Iopamidol-370 (76%);100ml Bottle IV 01/05/21 21:14 70 ml ONCE ONE Administration Metoclopramide HCl 10 mg 01/05/21 21:53 01/05/21 21:55 Metoclopramide Hcl 10mg/2ml Vial IVP 01/05/21 21:54 10 mg ONCE ONE Administration Sodium Chloride 50 ml 01/05/21 21:13 01/05/21 21:14 0.9 % Sodium Chloride 50 Ml Vial IV 01/05/21 21:14 50 ml ONCE ONE Administration Sodium Chloride 10 ml 01/05/21 21:13 01/05/21 21:14 Sodium Chloride 0.9% 10ml Syr (Rad Only) IV 01/05/21 21:14 10 ml ONCE ONE Administration ORDERS Category Date Time Status CT angio chest Stat Cat Scan 01/05/21 19:32 Taken - CT Data CT Scan: Chest Time Received: 22:[address] Reviewed: Yes: I have viewed the radiologist's interpretation Preliminary Findings: Abnormal (see report ) Medical Decision Narrative: pt with no pul emboli but has sx consistent with her esophageal dis Resp/SOB HPI - General Stated Complaint: Cough,SOB,DUMONT,Diaarrhea Time Seen by Provider: 01/05/21 20:30 Mode of Arrival: Ambulatory Source of Information: Patient, Medical Record Limitations: No Limitations Description of Symptoms (Recalled from ER Triage Doc. by RN): Pt was transfered from [facility] for being pale, room air sat of 86%. Pt at this time is 96-98% on room a
--- NOTE | 2021-01-05 22:10 | PC.NURSE ---
PT REPORTS SHE FEELS MUCH IMPROVED AND WANTS TO LEAVE AT THIS TIME.
[2021-01-05 22:46] VITALS: BP 125/75; PULSE 75; RESP 18; TEMP 36.7; O2SAT 98
== END 2021-01-05 22:48 | disposition home or self-care (01) ==
LOC: UTC 18:51 → ER 19:10
PROVIDERS: Emergency Provider Family Medicine; PCP Internal Medicine Adolescent Medicine
DX: Z20.822 Contact with and (suspected) exposure to COVID-19 (principal); R06.00 Dyspnea, unspecified; K44.9 Diaphragmatic hernia without obstruction or gangrene; E11.9 Type 2 diabetes mellitus without complications; K21.9 Gastro-esophageal reflux disease without esophagitis; Z79.899 Other long term (current) drug therapy
CPT/HCPCS: 71275; 80048; 84702; 85025; 96374; 96375; 99282; Q9967; U0003

== ENCOUNTER → 2021-02-20 07:13 | Outpatient (CLI) | payer BC, SELFPAY ==
--- NOTE | 2021-02-20 | CA_ITS ---
APPROVED REPORT Exam: Exercise Treadmill Technologist: luiza moran, Ht: 5 ft 3 in Wt: 180 lbs BSA: 1.85 m2 HR: 87 bpm BP: 121/85 mmHg Rhythm: NSR Indications: Abn EKG Medical History Medications: Omeprazole,,,,, Reglan,,,,, Bactroban,,,,, Allergies: Codeine Cardiac Risk Factors: FHX of CAD Stress Test Details Test: Mukund HR Resting HR: 91 bpm Max Heart Rate (APMHR): 172.601279 bpm Max HR Achieved: 153 bpm Target HR (85% APMHR): 146.686406 bpm % of APMHR: 88.95 Recovery HR: 122 bpm BP Resting BP: 121/85 mmHg Max BP: 180/90 mmHg Recovery BP: 144.0/82.0 mmHg ECG Clinical Exercise duration: 07:00 min Highest Stage Achieved: Stage 2: 2.5 mph at 12% grade. Exercise capacity: 7.0 METs Stress ECG Conclusion No chest pain. No arrhythmia or ectopy. Normal ST reponse to exercise. Normal GXT. Images reported separately. Test Summary REST . . . . . . . Standing REST . . . . . . . Sitting REST 03:52 0.0 0.0 91 . 121/ 85 . . Stage 1 01:00 10.0 1.7 107 . . . . Stage 1 02:00 10.0 1.7 125 . . . . Stage 1 03:00 10.0 1.7 135 . 162/ 90 . . Stage 2 01:00 12.0 2.5 135 . . . . Stage 2 02:00 12.0 2.5 149 . . . . Stage 2 . . . . . . . Stage held Stage 2 . . . . . . . Stage resumed Stage 2 . . . . . . . Stage held Stage 2 . . . . . . . Stage resumed Stage 2 . . . . . . . Stage held Stage 2 03:00 12.0 2.5 149 . 180/ 90 . . Stage 2 . . . . . . . Stage resumed Stage 2 04:00 12.0 2.5 144 . 180/ 90 . Stop exercise at 07:00 RECOVERY 01:00 0.0 0.0 121 . 144/ 82 . . RECOVERY 02:00 0.0 0.0 102 . 144/ 82 . . RECOVERY 03:00 0.0 0.0 97 . 146/ 88 . . RECOVERY 04:00 0.0 0.0 91 . 124/ 88 . . RECOVERY 05:00 0.0 0.0 93 . 124/ 88 . . RECOVERY 05:27 0.0 0.0 91 . 130/ 84 . . Electronically signed by : Hans Morillo, 02/21/2021 10:13:17
--- NOTE | 2021-02-20 07:18 | NM_ITS ---
APPROVED REPORT Exam: Nuclear Stress Test Indication: FM HX, ABN EKG Patient Location: Outpatient Stress Tech: Gina Carroll [place] Tech:CHANEL Benitez RT (R)(N)(M) Ht: 5 ft 3 in Wt: 180 lbs Bra Size: 42C HR: 87 bpm BP: 121/85 mmHg BSA: 1.85 m2 BMI: 31.8 Procedure: Patient exercised on Mukund protocol 7:00 minutes and sec, resting heart rate 87 bpm, resting blood pressure 121/85 mmHg, with exercise maximum heart rate achived was 144 bpm which is 87 % of the maximum predicted heart rate and blood pressure was 180/90 mmHg. Patient denied any complaint of chest pain. Patient has Adequate exercise capacity, achieved 7.0 METs of workload on treadmill, the blood pressure response to exercise was Normal. Electrocardiogram Resting electrocardiogram shows sinus rhythm, with exercise there is less than 1.[address] segment depression noted from the baseline EKG. The EKG portion of the exercise Myoview is negative for ischemia. Cardiac Stress and Resting SPECT Images: Cardiac Stress and Resting SPECT images were obtained using technetium 99m Myoview 31.2 mCi stress and 10.80 mCi at rest. Gated SPECT for analysis of segmental wall motion and calculation of the ejection fraction also done. Prone images were also obtained. Cardiac stress and resting SPECT images show uniform myocardial activity without segmental perfusion abnormality, computer derived ejection fraction is 66% with no regional wall motion abnormality, right ventricle is normal size and contractility. Conclusion: 1. The EKG portion of the exercise Myoview is negative for ischemia. Patient has adequate exercise capacity achieved 7 mets of workload on treadmill, the blood pressure response to exercise was normal, there was no exercise-induced chest discomfort. 2. No scintigraphic evidence of reversible ischemia seen at this level of exercise, computer derived ejection fraction 66% with no regional wall motion abnormality, right ventricle is normal size and contractility. 3. Normal exercise Myoview study. Electronically signed by : Hans Morillo, 02/21/2021 10:17:34
== END ==
PROVIDERS: PCP Internal Medicine Adolescent Medicine; Visit Provider Internal Medicine Adolescent Medicine
DX: R94.31 Abnormal electrocardiogram [ECG] [EKG] (principal)
CPT/HCPCS: 78452; 93017; A9502

== ENCOUNTER → 2021-04-11 09:29 | Outpatient (CLI) | payer BC, SELFPAY ==
--- NOTE | 2021-04-11 09:31 | FL_ITS ---
PROCEDURE: FL BARIUM SWALLOW CLINICAL INDICATION: ESOPHAGEAL DYSPHAGIA COMPARISON: RF FL BARIUM SWALLOW from 11/28/2020 FINDINGS: There is mild diffuse distention of the esophagus with poor peristalsis with narrowing of the distal esophagus at the GE junction. The distal esophagus is dilated up to 6.9 cm. No internal filling defects or mass apparent. There is tapering of the distal esophagus suggesting bird beak sign IMPRESSION: Diffuse dilatation of the esophagus with tapering of the distal esophagus and minimal peristalsis. These findings suggest type 1 achalasia. Dictated by: Bruce Harrison MD 04/11/2021 11:39 Bruce Harrison MD in [place] 04/11/2021 11:39
== END ==
PROVIDERS: PCP Internal Medicine Adolescent Medicine; Visit Provider Nurse Practitioner Family
DX: R13.10 Dysphagia, unspecified (principal)
CPT/HCPCS: 74220

== ENCOUNTER → 2021-06-22 11:50 | Outpatient (CLI) | payer BC, SELFPAY ==
[2021-06-22 13:28] LABS: Basophils % 0.9 % (0.1-2.0); Eosinophils # 0.1 K/mm3 (0.0-0.4); Hemoglobin 14.4 g/dL (12.2-16.2); Lymphocytes # 1.6 K/mm3 (0.7-4.5); Lymphocytes % 33.9 % (10-50); Mean Corpuscular HGB Conc 33.4 g/dL (31.8-35.4); Mean Corpuscular Hemoglobin 31.2 pg (27.0-31.2); Mean Corpuscular Volume 93.4 fl (81-99); Mean Platelet Volume 8.2 fl (7.4-10.4); Monocytes # 0.3 K/mm3 (0.1-1.0); Monocytes % 5.4 % (1.7-9.3); Neutrophils # 2.8 K/mm3 (1.8-7.8); Neutrophils % 58.8 % (37.0-80.0); Platelet Count 275 K/mm3 (142-424); Red Blood Count 4.61 M/mm3 (4.20-5.40); Red Cell Distribution Width 13.8 % (11.5-17.5); White Blood Count 4.7 K/mm3 (4.8-10.8)
[2021-06-22 14:43] LABS: Alanine Aminotransferase 15 U/L (12-78); Albumin Level 4.1 g/dl (3.5-5.0); Albumin/Globulin Ratio 1.5 (1.1-1.8); Alkaline Phosphatase 73 U/L (38-126); Anion Gap 11.5 mEq/L (5-15); Aspartate Amino Transferase 23 U/L (14-36); Bilirubin,Total 0.7 mg/dl (0.2-1.3); Blood Urea Nitrogen 15 mg/dl (7-17); Calcium 9.1 mg/dl (8.4-10.2); Carbon Dioxide 27 mmol/L (22.0-30.0); Chloride 105 mmol/L (98-107); Estimated Glomerular Filt Rate 106 ml/min (>60); GFR (African American) 129 ML/MIN (>60); Globulin 2.8 g/dL (1.3-3.2); Glucose 95 mg/dl (74-100); Potassium 4.5 mmoL/L (3.5-5.1); Sodium 139 mmol/L (136-145); Total Protein,Serum 6.9 g/dl (6.3-8.2)
[2021-06-22 15:00] LABS: 25-OH Vitamin D, Total 35.6 ng/mL (30-100)
[2021-06-22 15:14] LABS: Thyroid Stimulating Hormone 1.62 uIU/mL (0.465-4.68)
[2021-06-22 15:33] LABS: Vitamin B12 266 pg/mL (239-931)
== END ==
PROVIDERS: Visit Provider Nurse Practitioner Family
DX: R53.83 Other fatigue (principal); L65.9 Nonscarring hair loss, unspecified
CPT/HCPCS: 36415; 80053; 82306; 82607; 84443; 85025

== ENCOUNTER → 2021-07-13 11:25 | Outpatient (CLI) | payer BC, SELFPAY ==
[2021-07-13 12:32] LABS: Erythrocyte Sedimentation Rate 43 mm/hr (0-20)
[2021-07-13 12:50] LABS: C-Reactive Protein 0.9 mg/L (0-4)
[2021-07-13 13:04] LABS: Free Thyroxine Index 2.4 ug/dL (5.93-13.13); T4 (Thyroxine) 7.8 ug/dl (5.53-11.0); Triiodothryronine (T3) Uptake 31 % (23.5-40.5)
[2021-07-13 13:18] LABS: Thyroid Stimulating Hormone 0.34 uIU/mL (0.465-4.68)
[2021-07-15 12:09] LABS: Anti-Centromere B Antibodies <0.2 AI (0.0-0.9); Anti-DNA (DS) Ab Qn <1 IU/mL (0-9); Anti-Jo-1 <0.2 AI (0.0-0.9); Anti-Smith Antibody <0.2 AI (0.0-0.9); Antichromatin Antibodies <0.2 AI (0.0-0.9); Antiscleroderma-70 Antibodies <0.2 AI (0.0-0.9); RNP Antibodies <0.2 AI (0.0-0.9); Sjogren's Anti-SS-A <0.2 AI (0.0-0.9); Sjogren's Anti-SS-B <0.2 AI (0.0-0.9)
== END ==
PROVIDERS: Visit Provider Internal Medicine Adolescent Medicine
DX: L65.9 Nonscarring hair loss, unspecified (principal); R21 Rash and other nonspecific skin eruption
CPT/HCPCS: 36415; 84436; 84443; 84479; 85651; 86140; 86225; 86235

== ENCOUNTER → 2021-08-13 15:30 | Outpatient (POV) | payer BC, SELFPAY | PROVIDERS: Visit Provider Dermatology | DX: Z00.00 Encounter for general adult medical examination without abnormal findings (principal) ==

== ENCOUNTER → 2022-12-23 11:03 | Outpatient (CLI) | payer BC, SELFPAY ==
--- NOTE | 2022-12-23 11:07 | XR_ITS ---
FINAL REPORT TECHNIQUE: Chest PA & Lateral CLINICAL HISTORY: PERSISTENT COUGH COMPARISON: November 2017 FINDINGS: 2 views of the chest were performed. The heart size is normal. The mediastinum is within normal limits. There is left midlung opacity. There are no pleural effusions. There is no pneumothorax. The bony thorax appears intact. IMPRESSION: Left mid lung opacity could represent atelectasis or pneumonia. Reviewed, Interpreted and Dictated by Dae Scott III, MD Transcribed by Dank Melendez Authenticated and [facility]
== END ==
LOC: RAD 11:04
PROVIDERS: PCP Nurse Practitioner Family; Visit Provider Nurse Practitioner Family
DX: R05.3 Chronic cough (principal)
CPT/HCPCS: 71046

== ENCOUNTER 2024-02-07 11:37 | Emergency (ER) | payer BC, SELFPAY ==
[2024-02-07 12:10] VITALS: BP 106/80; PULSE 78; RESP 19; TEMP 36.9; O2SAT 99; BMI 28.5
--- NOTE | 2024-02-07 12:35 | EXP.UTC ---
Discharge Plan Disposition Patient Disposition: Home, Self-Care Condition: Good Prescriptions Prescriptions: New amoxicillin-pot clavulanate 875-125 mg Tablet 1 tab PO Q12H Qty: 20 0RF No Action escitalopram oxalate [Lexapro] 10 mg tablet 10 mg PO DAILY All Day Allergy (cetirizine) 10 mg capsule 10 mg PO DAILY PRN (Reason: allergies) fluticasone propionate 50 mcg/actuation spray,suspension 2 spray intranasal DAILY 90 Days Qty: 15.8 3RF Rx Instructions: administer into each nostril spironolactone 100 mg tablet 100 mg PO DAILY Patient Comments: TAKE 1 TABLET BY MOUTH EVERY NIGHT AT BEDTIME famotidine 20 mg tablet 20 mg PO BID Patient Comments: TAKE 1 TABLET (20 MG TOTAL) BY MOUTH IN THE MORNING AND BEFORE BEDTIME rosuvastatin 10 mg tablet 10 mg PO DAILY Referrals Follow up/Referrals: Rogerio Mays MD [Primary Care Provider] - See instructions Corina Dixon APRN [Nurse Practitioner] - See instructions Activity Restrictions/Add. Instructions Additional Instructions/Restrictions: Follow up with ENT or Family Doctor if no improvement or any worsening of symptoms Sucking on sour hard candy may help Make sure to drink plenty of fluids Try to avoid chewing Apply warm compresses Motrin and/or Tylenol for pain if needed and you can take it Clinical Impressions Clinical Impression: Acute parotitis Instructions Patient Instructions: DI for Parotitis-Adult, Parotitis, Amoxicillin and Clavulanic Acid Discharge ED Provider: Samanta Gage [facility] General Stated complaint: swelling under ears Mode of Arrival: Ambulatory Source of Information: Patient Limitations: No Limitations Time Seen by Provider: 02/07/24 12:35 Description of Symptoms (Recalled from Triage Doc. by RN): Pt's symptoms are knot under right ear and face swollen on right side. HEENT Symptoms (Recalled from RN notes): Yes Resp Symptoms (Recalled from RN notes): No Skin Symptoms (Recalled from RN notes): No MS Symptoms (Recalled from RN notes): No Functional Status (Recalled from RN notes): n/a History of Present Illness Provider Complaint: Patient states that yesterday she had a large knot like area on the right side of her face/ear area States that the swelling was worse yesterday and went down but still has a hard area there on just under her jaw on her right side States she came in to get it looked at Related Data Home Medications Medication Instructions Recorded Confirmed cetirizine 10 mg capsule (All Day 10 mg PO DAILY PRN allergies 10/08/23 02/07/24 Allergy (cetirizine)) escitalopram oxalate 10 mg tablet 10 mg PO DAILY 10/08/23 02/07/24 (Lexapro) famotidine 20 mg tablet 20 mg PO BID 02/07/24 02/07/24 rosuvastatin 10 mg tablet 10 mg PO DAILY 02/07/24 02/07/24 spironolactone 100 mg tablet 100 mg PO DAILY 02/07/24 02/07/24 Previous Rx's Medication Instructions Recorded fluticasone propionate 50 2 spray intranasal DAILY 90 days 10/13/23 mcg/actuation nasal #15.8 mL spray,suspension amoxicillin 875 mg-potassium 1 tab PO Q12H #20 tabs 02/07/24 clavulanate 125 mg tablet Allergies Allergy/AdvReac Type Severity Reaction Status Date / Time codeine AdvReac Mild NA-NAUSEA/V Verified 02/07/24 12:25 OMITING Worker's Comp Is this a Worker's Comp case?: No [facility] Disclaimer: The information contained in this section may have been updated after the patient was seen, as this information can be updated by other users. 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 [employer] current occupational exposures/hazards: No caffeine: Yes ROS Obtained: Yes All systems reviewed & no additional complaints except as documented and Yes Systems reviewed as appropriate & no additional complaints except as documented ENT Ears, Nose, Mouth, and Throat: Reports system reviewed and no additional complaints, except as documented and Reports as per HPI Comments: Swelling to area on right jaw/below ear area worse yesterday went down sometoday still sore Cardiovascular Cardiovascular: Reports system reviewed and no additional complaints, except as documented and Reports as per HPI Respiratory Respiratory: Reports system reviewed and no additional complaints, except as documented and Reports as per HPI Gastrointestinal Gastrointestingal: Reports system reviewed and no additional complaints, except as documented and as per HPI Physical Exam General General appearance: alert and in no apparent distress ENT ENT exam: Present mucous membranes moist Expanded ENT Exam Comment: mild swelling noted to right jaw/under right ear appears like parotiis Respiratory Respiratory exam: Present normal lung sounds bilaterally; Absent respiratory distress or wheezes Cardiovascular Cardiovascular exam: Present regular rate, normal rhythm and normal heart sounds Neurological Exam Neurological exam: Present alert, oriented X3 and normal gait Medical Decision Making Gabriel Inquiry Pt receiving controlled substance: No Gabriel was queried for this patient: No Vital Signs: 02/07/24 12:10 Temperature 98.5 F Temperature Source Oral Pulse Rate [Right Radial] 78 Respiratory Rate 19 Blood Pressure [Right Arm] 106/80 L Blood Pressure Mean [Right Arm] 88 Blood Pressure Source [Right Arm] Automatic Cuff Blood Pressure Position [Right Arm] Sitting 02 Sat by Pulse Oximetry 99 Oxygen Delivery Method Room Air
[2024-02-07 12:57] VITALS: BP 106/80; PULSE 78; RESP 19; TEMP 36.9; O2SAT 99
== END 2024-02-07 12:57 | disposition home or self-care (01) ==
PROVIDERS: Emergency Provider Nurse Practitioner; PCP Internal Medicine Adolescent Medicine
DX: K11.21 Acute sialoadenitis (principal)
CPT/HCPCS: 99204; 99212; G0463

== ENCOUNTER 2024-03-10 14:34 | Outpatient (CLI) | payer BC, SELFPAY ==
--- NOTE | 2024-03-10 14:45 | CT_ITS ---
FINAL REPORT CLINICAL HISTORY: SOB/Chronic Cough FINDINGS: CT CHEST without contrast COMPARISON: None . TECHNIQUE: Axial CT without IV contrast administration. FINDINGS: Minimal patchy groundglass opacities throughout the left lung involving the left upper and lower lobes. The right lung is clear. Significant esophageal distention with debris. Aspiration is not excluded as the cause of pneumonia. And air collection in the right thoracic inlet measures 2.5 cm and could represent an esophageal or, most likely, tracheal diverticulum. No pleural or pericardial effusion is seen . No adenopathy or mass lesion is present . IMPRESSION: Mild multifocal pneumonia throughout the left lung. Aspiration is not excluded given significant esophageal distention, filled with debris. This study was performed using automated techniques to achieve radiation exposure as low as reasonably achievable Reviewed, Interpreted and Dictated by Dino Stratton MD Transcribed by Lisa Sharma Authenticated and [facility]
== END 2024-03-10 23:59 | disposition home or self-care (01) ==
LOC: RAD 14:36
PROVIDERS: PCP Internal Medicine Adolescent Medicine; Visit Provider Internal Medicine Pulmonary Disease
DX: R05.3 Chronic cough (principal); R93.89 Abnormal findings on diagnostic imaging of other specified body structures
CPT/HCPCS: 71250

== ENCOUNTER 2024-04-30 10:15 | Emergency (ER) | payer BC, SELFPAY ==
[2024-04-30 10:30] VITALS: BP 106/69; PULSE 64; RESP 20; TEMP 37.2; O2SAT 97; BMI 28.8
--- NOTE | 2024-04-30 10:45 | ED_ITS ---
Discharge Plan Disposition Patient Disposition: Home, Self-Care Condition: Good Prescriptions Prescriptions: No Action escitalopram oxalate [Lexapro] 10 mg tablet 10 mg PO DAILY All Day Allergy (cetirizine) 10 mg capsule 10 mg PO DAILY PRN (Reason: allergies) fluticasone propionate 50 mcg/actuation spray,suspension 2 spray intranasal DAILY 90 Days Qty: 15.8 3RF Rx Instructions: administer into each nostril spironolactone 100 mg tablet 100 mg PO DAILY Patient Comments: TAKE 1 TABLET BY MOUTH EVERY NIGHT AT BEDTIME famotidine 20 mg tablet 20 mg PO BID Patient Comments: TAKE 1 TABLET (20 MG TOTAL) BY MOUTH IN THE MORNING AND BEFORE BEDTIME rosuvastatin 10 mg tablet 10 mg PO DAILY Referrals Follow up/Referrals: Rogerio Mays MD [Primary Care Provider] - See instructions Activity Restrictions/Add. Instructions Additional Instructions/Restrictions: No sign of a bacterial infection. Likely viral. Viruses can take 7-14 days to run their course. Nasal saline and bulb syringe or nose Melani to remove nasal drainage to help with nasal congestion. Hard to eat, drink, sleep with nasal congestion so important to keep this cleaned out. Monitor temp. Tylenol or Motrin as needed for pain or fever Encourage fluids, water, Gatorade, Powerade, Pedialyte if infant/toddler/child Warm salt water gargles Warm fluids Sore throat lozenges Sleep elevated Humidifier/vaporizer Follow-up immediately for new or worsening symptoms or no noticeable improvement over the next 48-72 hours. Clinical Impressions Clinical Impression: URI (upper respiratory infection) Instructions Patient Instructions: DI for Viral Upper Respiratory Infection -- Adult Discharge ED Provider: Solomon ([facility])[place] [facility] [place] General Stated complaint: sore throat, cough Mode of Arrival: Ambulatory Source of Information: Patient Limitations: No Limitations Time Seen by Provider: 04/30/24 10:45 Description of Symptoms (Recalled from Triage Doc. by RN): PATIENT C/O NO ENERGY, HEADACHE, AND COUGH X 3 DAYS HEENT Symptoms (Recalled from RN notes): Yes Resp Symptoms (Recalled from RN notes): Yes Skin Symptoms (Recalled from RN notes): No MS Symptoms (Recalled from RN notes): No Functional Status (Recalled from RN notes): WNL History of Present Illness Provider Complaint: 54 yr old female presents for sore throat, low energy, cough for 3 days. pt states she is coughing alot at night and not sleeping well and thinks that's why she has no energy. pt states her sore throat could be from her chronic throat condition. pt states she wants tested to make sure but thinks its just her normal flare of her chronic throat condition that usually improves with a steroid shot. pt states she does not want chest xray Related Data Home Medications Medication Instructions Recorded Confirmed cetirizine 10 mg capsule (All Day 10 mg PO DAILY PRN allergies 10/08/23 03/28/24 Allergy (cetirizine)) escitalopram oxalate 10 mg tablet 10 mg PO DAILY 10/08/23 03/28/24 (Lexapro) famotidine 20 mg tablet 20 mg PO BID 02/07/24 03/28/24 rosuvastatin 10 mg tablet 10 mg PO DAILY 02/07/24 03/28/24 spironolactone 100 mg tablet 100 mg PO DAILY 02/07/24 03/28/24 Previous Rx's Medication Instructions Recorded fluticasone propionate 50 2 spray intranasal DAILY 90 days 10/13/23 mcg/actuation nasal #15.8 mL spray,suspension Allergies Allergy/AdvReac Type Severity Reaction Status Date / Time codeine AdvReac Mild NA-NAUSEA/V Verified 03/28/24 16:12 OMITING Worker's Comp Is this a Worker's Comp case?: No [facility] Disclaimer: The information contained in this section may have been updated after the p sarah was seen, as this information can be updated by other users. 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) Smoking Status: Never smoker second hand exposure: No alcohol intake: never substance use type: denies use current occupational status: employed Travel in the last 8 weeks: None household members: family and children housing: house 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 [employer] current occupational exposures/hazards: No caffeine: Yes ROS Obtained: Yes All systems reviewed & no additional complaints except as documented Constitutional Constitutional: Reports system reviewed and no additional complaints, except as documented, Reports as per HPI, Reports fatigue and Reports headache(s) Eyes Eyes: Reports system reviewed and no additional complaints, except as documented ENT Ears, Nose, Mouth, and Throat: Reports system reviewed and no additional complaints, except as documented, Reports as per HPI, Reports headache(s), Reports nasal discharge and Reports sore throat Cardiovascular Cardiovascular: Reports system reviewed and no additional complaints, except as documented Respiratory Respiratory: Reports system reviewed and no additional complaints, except as documented, Reports as per HPI, Reports cough and Reports non-productive cough Gastrointestinal Gastrointestingal: Reports system reviewed and no additional complaints, except as documented Neurologic Neurologic: Reports system reviewed and no additional complaints, except as documented and Reports headache(s) Endocrine Endocrine: Reports system reviewed and no additional complaints, except as documented and Reports fatigue Allergic/Immunologic Allergic/Immunologic: Reports system reviewed and no additional complaints, except as documented Physical Exam General General appearance: alert and in no apparent distress Eye Eye exam: Present normal appearance and PERRL ENT ENT exam: Present normal exam, normal oropharynx, mucous membranes moist, TM's normal bilaterally and normal external ear exam Chest Chest inspection: Present normal inspection and symmetric chest wall rise; Absent tenderness Respiratory Respiratory exam: Present normal lung sounds bilaterally; Absent respiratory distress Cardiovascular Cardiovascular exam: Present regular rate and normal rhythm; Absent JVD Extremities Exam Extremities exam: Present normal inspection, full ROM and normal capillary refill; Absent calf tenderness Neurological Exam Neurological exam: Present alert and oriented X3 Psychiatric Psychiatric exam: Present normal affect and normal mood Skin Skin exam: Present warm, dry, intact and normal color Lymphatic Lymphatic Findings: no adenopathy Medical Decision Making Medical Records Medical records reviewed: Yes I reviewed the patient's medical records. Gabriel Inquiry Pt receiving controlled substance: No Gabriel was queried for this patient: No Vital Signs: 04/30/24 10:30 Temperature 99.0 F Temperature Source Oral Pulse Rate [Left Brachial] 64 Respiratory Rate 20 Blood Pressure [Left Arm] 106/69 L Blood Pressure Mean [Left Arm] 81 Blood Pressure Source [Left Arm] Automatic Cuff Blood Pressure Position [Left Arm] Sitting 02 Sat by Pulse Oximetry 97 Oxygen Delivery Method Room Air Orders (Tests/Meds): ED MEDICATIONS Generic Name Dose Route Start Last Admin Trade Name Freq PRN Reason Stop Dose Admin Dexamethasone Sodium Phosphate 4 mg 04/30/24 10:42 Dexamethasone 4mg/Ml 1ml Vial IM 04/30/24 10:43 ONCE ONE ORDERS Category Date Time Status Full Resp Panel w/COVID ([facility]) Routine Lab 04/30/24 10:43 Ordered
[2024-04-30] MEDS: DEXAMETHASONE 4MG/ML 1ML VIAL 4 MG IM (10:50)
[2024-04-30 10:54] VITALS: BP 106/69; PULSE 64; RESP 20; TEMP 37.2; O2SAT 97
[2024-04-30 10:54] LABS: Adenovirus,PCR Not Detected (NotDetected); Bordetella Pertussis Not Detected (NotDetected); Chlamydophila Pneumoniae, PCR Not Detected (NotDetected); Coronavirus 19, PCR Not Detected (NotDetected); Coronavirus 229E Not Detected (NotDetected); Coronavirus NL63 Not Detected (NotDetected); Coronavirus OC43 Not Detected (NotDetected); Coronovirus HKU1,PCR Not Detected (NotDetected); Human Metapneumovirus Not Detected (NotDetected); Influenza A, PCR Not Detected (NotDetected); Influenza AH1, 2009 Not Detected (NotDetected); Influenza AH1, PCR Not Detected (NotDetected); Influenza AH3,PCR Not Detected (NotDetected); Influenza B, PCR Not Detected (NotDetected); Mycoplasma Pneumoniae, PCR Not Detected (NotDetected); Parainfluenza 1, PCR Not Detected (NotDetected); Parainfluenza 2, PCR Not Detected (NotDetected); Parainfluenza 3, PCR Not Detected (NotDetected); Parainfluenza 4, PCR Not Detected (NotDetected); Respiratory Syncytial Virus Not Detected (NotDetected); Rhinovirus/Enterovirus Not Detected (NotDetected)
== END 2024-04-30 10:59 | disposition home or self-care (01) ==
PROVIDERS: Emergency Provider Nurse Practitioner Family; PCP Internal Medicine Adolescent Medicine
DX: R05.9 Cough, unspecified (principal); R07.0 Pain in throat; R53.1 Weakness; J06.9 Acute upper respiratory infection, unspecified; B34.9 Viral infection, unspecified
CPT/HCPCS: 87581; 87632; 87635; 87798; 96372; 99212; 99214; G0463; J1100

== ENCOUNTER 2024-05-27 07:50 | Outpatient (CLI) | payer BC, SELFPAY ==
--- NOTE | 2024-05-27 07:59 | FL_ITS ---
FINAL REPORT CLINICAL HISTORY: ACHALASIA ft 1:50 104.57mgy FINDINGS: UPPER GI SERIES, SINGLE CONTRAST HISTORY: History of achalasia with previous myotomy. TECHNIQUE: The patient ingested thick and thin barium contrast. Spot and overhead films were performed. A total of 39 images were saved. FINDINGS: There is significant dilation of the esophagus. Debris is noted in the esophagus. There is a stricture at the GE junction. Contrast is delayed in emptying from the esophagus. This limits evaluation of the stomach. Stomach is grossly unremarkable. The duodenal bulb and sweep appear grossly unremarkable. Cannot evaluate for gastroesophageal reflux due to contrast remaining in the esophagus throughout the examination. 13 mm barium tablet does not pass through the area of narrowing during the examination. FLUOROSCOPY TIME: 1 minute 50 seconds Radiation exposure in Reference air Kerma: 104.57 mGy 39 images were saved. IMPRESSION: Significant dilation of the esophagus with stricture at the GE junction. Findings could be due to the patient's reported achalasia. Evaluation of the stomach is limited, but the stomach is grossly unremarkable. Reviewed, Interpreted and Dictated by Dae Scott III, MD Transcribed by Lizzie Scales PA-C Authenticated and [facility]
[2024-05-27] MEDS: BARIUM SULFATE (E-Z-HD 340GM);135ML BOTTLE 135 ML PO (08:24)
== END 2024-05-27 23:59 | disposition home or self-care (01) ==
LOC: RAD 07:51
PROVIDERS: PCP Internal Medicine Adolescent Medicine; Visit Provider Student in an Organized Health Care Education/Training Program
DX: K22.0 Achalasia of cardia (principal)
CPT/HCPCS: 74240

== ENCOUNTER 2024-09-19 07:35 | Outpatient (CLI) | payer BC, SELFPAY | END 2024-09-19 23:59 | disposition home or self-care (01) | PROVIDERS: PCP Internal Medicine Adolescent Medicine; Visit Provider Student in an Organized Health Care Education/Training Program | DX: R06.00 Dyspnea, unspecified (principal) | CPT/HCPCS: 94060; 94726; 94729 ==

== ENCOUNTER 2024-10-14 12:00 | Outpatient (CLI) | payer BC, SELFPAY ==
--- NOTE | 2024-10-14 12:15 | XR_ITS ---
FINAL REPORT CLINICAL HISTORY: SUBACUTE COUGH, ACUTE FEBRILLE ILLNESS COMPARISON: 12/23/2022 FINDINGS: PA and lateral views of the chest were obtained. The cardiac and mediastinal silhouettes are within normal limits. There is a new right infrahilar opacity concerning for pneumonia. There is linear atelectasis or scarring in the left lower lobe. There is no pleural effusion or pneumothorax. No acute osseous abnormality is identified. IMPRESSION: Right infrahilar opacity concerning for pneumonia. Reviewed, Interpreted and Dictated by Opal Fan MD Transcribed by Lisa Sharma Authenticated and [facility]
[2024-10-14 12:21] LABS: Basophils % 0.2 % (0.1-2.0); Hematocrit 39.2 % (37.0-47.0); Lymphocytes % 19.7 % (10-50); Mean Corpuscular HGB Conc 33.2 g/dL (31.8-35.4); Mean Corpuscular Hemoglobin 29.5 pg (27.0-31.2); Mean Corpuscular Volume 89.1 fl (81-99); Mean Platelet Volume 10.1 fl (7.4-10.4); Monocytes # 0.5 K/mm3 (0.1-1.0); Monocytes % 5.4 % (1.7-9.3); Neutrophils # 7.5 K/mm3 (1.8-7.8); Neutrophils % 74.3 % (37.0-80.0); Platelet Count 294 K/mm3 (142-424); Red Cell Distribution Width 12.8 % (11.5-17.5)
[2024-10-14 12:49] LABS: Alanine Aminotransferase 17 U/L (12-78); Albumin Level 3.8 g/dl (3.5-5.0); Albumin/Globulin Ratio 1.5 (1.1-1.8); Alkaline Phosphatase 84 U/L (38-126); Anion Gap 9.3 mEq/L (5-15); Aspartate Amino Transferase 26 U/L (14-36); Bilirubin,Total 1.1 mg/dl (0.2-1.3); Blood Urea Nitrogen 12 mg/dl (7-17); Calcium 9.5 mg/dl (8.4-10.2); Carbon Dioxide 28 mmol/L (22.0-30.0); Chloride 107 mmol/L (98-107); Estimated Glomerular Filt Rate 75 ml/min (>60); GFR (African American) 91 ML/MIN (>60); Globulin 2.6 g/dL (1.3-3.2); Glucose 96 mg/dl (74-100); Magnesium 2.2 mg/dl (1.6-2.3); Potassium 4.3 mmoL/L (3.5-5.1); Sodium 140 mmol/L (136-145); Total Protein,Serum 6.4 g/dl (6.3-8.2)
== END 2024-10-14 23:59 | disposition home or self-care (01) ==
LOC: LAB 12:03
PROVIDERS: PCP Internal Medicine Adolescent Medicine; Visit Provider Internal Medicine Adolescent Medicine
DX: R05.2 Subacute cough (principal); R50.9 Fever, unspecified; R53.81 Other malaise; R53.83 Other fatigue
CPT/HCPCS: 36415; 71046; 80053; 83735; 85025

== ENCOUNTER 2025-01-03 09:30 | Outpatient (CLI) | payer BC, SELFPAY ==
--- NOTE | 2025-01-03 09:34 | XR_ITS ---
FINAL REPORT CLINICAL HISTORY: ACUTE COUGH, fever COMPARISON: 10/14/2024 FINDINGS: 2 views of the chest were obtained . The heart is normal in size. The mediastinum is within normal limits. The lungs are clear. There is no pneumothorax. Osseous structures are unremarkable. IMPRESSION: No acute cardiopulmonary process. Reviewed, Interpreted and Dictated by Opal Fan MD Transcribed by Laverne Breaux Authenticated and [facility]
== END 2025-01-03 23:59 | disposition home or self-care (01) ==
LOC: RAD 09:31
PROVIDERS: PCP Nurse Practitioner Family; Visit Provider Nurse Practitioner Family
DX: R05.1 Acute cough (principal); Z87.09 Personal history of other diseases of the respiratory system
CPT/HCPCS: 71046

== ENCOUNTER 2025-02-11 11:07 | Outpatient (CLI) | payer BC, SELFPAY ==
[2025-02-11 11:39] LABS: Blood Urea Nitrogen 21 mg/dl (7-17); Estimated Glomerular Filt Rate 88 ml/min (>60); GFR (African American) 106 ML/MIN (>60)
--- NOTE | 2025-02-11 11:51 | XR_ITS ---
PROCEDURE INFORMATION: Exam: XR Abdomen Exam date and time: 02/11/2025 12:01 PM Age: 54 years old Clinical indication: Device placement; Gi device; Other: J tube TECHNIQUE: Imaging protocol: Radiologic exam of the abdomen. Views: Frontal supine view of the abdomen. 1 View. COMPARISON: CR XR CHEST 2V 01/03/2025 9:38 AM FINDINGS: Tubes, catheters and devices: Enteric contrast administered via jejunostomy tube. No evidence of contrast extravasation with tube in satisfactory position. Gastrointestinal tract: Normal. No bowel dilation. Bones/joints: Unremarkable. IMPRESSION: Enteric contrast administered via jejunostomy tube. No evidence of contrast extravasation with tube in satisfactory position.
[2025-02-11] MEDS: DIATRIZOATE MEGLUMINE(GASTROGRAFIN) 66%-10% 120ML 30 ML PO (12:21)
== END 2025-02-11 23:59 | disposition home or self-care (01) ==
LOC: RAD 11:09 → LAB 11:12
PROVIDERS: PCP Nurse Practitioner Family; Visit Provider Nurse Practitioner Family
DX: Z93.1 Gastrostomy status (principal)
CPT/HCPCS: 36415; 74018; 82565; 84520; Q9963

== ENCOUNTER 2025-03-22 14:02 | Outpatient (CLI) | payer BC, SELFPAY ==
--- OUTSIDE RECORDS SUMMARY | 2025-01-25 05:44 | XMS_ITS | Encounter Summary ---
Author Organization Healthcare Address [address] [id number] Care Team Providers Care Home Health Billing Specialist Name Role Phone Caridad Oliver APRN Primary Care Provider [phone] Reason for Referral * Home Health (Routine) - Authorized Specialty Diagnoses / Procedures Referred By Lorin biggs Referred To Contact Home Health Services / Cardiology Diagnoses Achalasia Jeffery Devine, [address] [address] Phone: tel: fax: Referral ID Status Reason Start Date Expiration Date Visits Requested Visits Authorized [id number] Authorized Specialty Services Required 02/01/2025 08/03/2026 999 999 Reason for Visit * Auth/Cert (Routine) Specialty Diagnoses / Procedures Referred By Lorin biggs Referred To Contact Diagnoses Achalasia Achalasia Procedures MD ESOPHAGECTOMY DISTAL 2/3 W/LAPAROSCOPIC MOBLJ MINIMALLY INVASIVE ESOPHAGECTOMY, LAPAROSCOPIC Jeffery Devine DO [address] [address] Phone: tel: fax: [facility] [address] [place] [address] Phone: tel: Referral ID Status Reason Start Date Expiration Date Visits Re quested Visits Authorized [id number] 1 1 Encounter Details Date Type Department Care Team (Latest Contact Info) Description 01/25/2025 5:44 AM EDT - 02/01/2025 2:38 PM EDT Hospital Encounter [facility] [address] [place] [address] Jeffery Devine, DO [address] [phone] Achalasia Discharge Disposition: Home or Self Care Social History Tobacco Use Types Packs/Day Years Used Date Smoking Tobacco: Former Cigarettes 0.5 26.4 S tarted: 1998 Smokeless Tobacco: Never Alcohol Use Standard Drinks/Week Comments Never 0 (1 standard drink = 0.6 oz pur e alcohol) Humiliation, Afraid, Rape, and Kick questionnair e Answer Date Recorded Within the last year, have y ou been afraid of your partner or ex-partner? No 01/26/2025 Within the last year, have y ou been humiliated or emotionally abused in other ways by your partner or ex-partner? No Within the last year, have y ou been kicked, hit, slapped, or otherwise physically hurt by your partner or ex-partner? No 01/26/2025 Within the last year, have y ou been raped or forced to have any kind of sexual activity by your partner or ex-partner? No 01/26/2025 Hunger Vital Sign Answer Date Recorded Within the past 12 months, y ou worried that your food would run out before you got the money to buy more. Never true 01/27/20 25 Within the past 12 months, t he food you bought just didn't last and you didn't have money to get more. Never true 01/26/2025 PRAPARE - Transportation Answer Date Re corded In the past 12 months, has l ack of transportation kept you from medical appointments or from getting medications? No 01/10 In the past 12 months, has l ack of transportation kept you from meetings, work, or from getting things needed for daily living? No 01/26/2025 Housing Stability Vital Sign Answer Chin e Recorded In the last 12 months, was t here a time when you were not able to pay the mortgage or rent on time? No 01/26/2025 Number of Times Moved in the Last Year Not on fi le 01/26/2025 At any time in the past 12 m [facility], were you homeless or living in a fci (including now)? No 01/26/2025 Utilities Answer Date Recorded In the past 12 months has e electric, gas, oil, or water company threatened to shut off services in your home? No 01/26/2025 Comments No Sex and Gender Information Value Date Recorded Sex Assigned at Not on file Legal Sex Female 8:02 PM EDT Gender Identity Not on file Sexual Orientation Not on file documented as of this encounter Last Filed Vital Signs Vital Sign Reading Time Taken Comments Blood Pressure 103/69 02/01/2025 5:00 AM EDT Pulse 82 02/01/2025 8:59 AM EDT Temperature 36.8 C (98.2 F) 02/01/2025 5:00 AM EDT Respiratory Rate 18 02/01/2025 5:00 AM EDT Oxygen Saturation 94% 02/01/2025 8:59 AM EDT Inhaled Oxygen Concentration - - Weight 74.5 kg (164 lb 3.9 oz) 01/30/2025 12:00 PM EDT Height 160 cm (5' 2.99 ) 01/30/2025 12:00 PM EDT Body Mass Index 29.1 01/30/2025 12:00 PM EDT documented in this encounter Functional Status * Calculated C-SSRS Risk Score (Lifetime/Recent) Answer Date of Assessment Author No Risk Indicated 01/31/2025 8:00 AM EDT Saray Lucia RN * Question Answer Date of Assessment Author 1. Wish to be (Past 1 Month) No 025 8:00 AM EDT Marcial Lucia RN 2. Non-Specific Active Suici fauzia Thoughts (Past 1 Month) No 01/31/2025 8:00 AM EDT Marcial Lucia RN 6. Suicidal Behavior (Lifetime) No 8:00 AM EDT Marcial Lucia, RN documented as of this encounter Discharge Instructions * Discharge Instructions* Jimi Lawrence, - 02/01/2025 11:57 AM EDT Medications: - You should take Tylenol and/or ibuprofen every 6 hours as needed for mild - moderate pain. - You have been prescribed pain medications to be taken as needed for severe pain. - You should take a stool softener prescribed as long as you are taking narcotics. - You may resume your previous medications by crushing them and taking them orally with liquid unless otherwise instructed. Do NOT put crushed medications into your feeding tube. Nutrition: - Full liquid diet as tolerated and tube feeds. Activity: - Walking and climbing stairs is ok and encouraged. You should refrain from any strenuous activity/exercise until your follow up appointment. - No lifting anything >10lbs for the next 2 weeks - You may not drive for 48 hours after surgery, or while taking narcotics Dressing: - Any glue used to close and cover your incision: Do not pick it off, it will fall of on its own after approximately 2 weeks. The glue is waterproof but you should not soak your incision or take a tub bath for 2 weeks. - You should try to keep your incisions as clean and dry as possible - You may shower. Let the soapy water run over your incisions. Do not scrub at your incisions. After you shower, pat your incisions dry with a clean towel. - Do NOT soak your incisions, or take a tub bath for 2 weeks. - Chiqui/Stitches will be removed at follow up appointment. J-tube care: - Flush feeding tube with water before connecting tube feeds and after disconnecting tube feeds. - Flush feeding tube with water before and after giving liquid medications. - May use abdominal binder if needed - Keep surrounding area around tube clean - Do NOT give crushed and/or powdered medications via j-tube. Liquid medications only. Potential Issues: - It is normal to have some pain and soreness, especially around the incisions - A small amount of clear drainage from the incision may be expected, call the office if the drainage becomes bloody, purulent (pus), or foul-smelling - Call the office if you start to have increased redness, drainage, swelling, or increased pain around your incision - Call the office if you have a fever greater than 101 F - Call the office if you have severe abdominal discomfort, nausea and vomiting, or feeling unwell Follow Up: - You will be contacted by the clinic for a follow up appointment with Dr. Devine in 2 weeks with 2view chest x ray - Contact the [facility] team via: - For non-emergent questions/concerns: Clinic discharge # - For urgent questions/concerns: MDs hotline: , option 4 - ask for the thoracic surgeon aeronautical test engineer. documented in this encounter Medications at Time of Discharge cetirizine (ZyrTEC) 10 MG tablet Take 1 tablet by mouth daily as needed for allergies or rhinitis. 12/08/2023 escitalopram (Lexapro) 10 MG tablet Take 1 tablet by mouth nightly. Nutritional Supplements (isosource 1.5 Pastor/mL) 55 mL by Per J Tube route every 1 (one) hour. 94240 mL 5 01/19/2025 5 pantoprazole (Protonix) 40 MG EC tablet Take 1 tablet by mouth daily before breakfast. Do not crush, chew, or split. 30 tablet 1 02/01/2025 5 valACYclovir (Valtrex) 1 g tablet Take 1 tablet by mouth 3 (three) times a day as needed (Flare ups). Take 1 tablet by mouth 3 times daily for 5 days as needed 06/30/2024 oxyCODONE (Roxicodone) 5 MG immediate release tablet Take 1 tablet by mouth every 6 hours as needed for moderate pain. 24 tablet 02/01/2025 metoclopramide (Reglan) 10 MG tablet Take 0.5 tablets by mouth every 6 (six) hours. Take before meals and at bedtime. 60 tablet 02/01/2025 5 ibuprofen 100 MG/5ML suspension Take 30 mL by mouth every 6 (six) hours for 10 days. 1200 mL 02/01/2025 5 lidocaine (Lidoderm) 5 % patch Apply 2 patches topically daily over 12 hours for 10 doses. Remove & discard patch within 12 hours or as directed by MD. 20 patch 02/02/2025 acetaminophen (Tylenol) 160 MG/5ML solution Take 30 mL by mouth every 6 hours as needed (mild pain (1-3 on the numeric pain scale)) for up to 10 days. 120 mL 02/01/2025 isosource 1.5 Pastor/mL liquid 55 mL/hr by Per J Tube route continuously at 55 mL/hr. Equivalent Substitutions Allowed? Yes 1 each 01/10/2025 5 documented as of this encounter Miscellaneous Notes * Latamaryjo LexaJUAN GarciaKera Jessi - 02/01/2025 12:49 PM EDT Images from the original note were not included. 299 Protonix (Pantoprazole) ([place]) Protonix decreases stomach acid. You will be on Protonix in the hospital but may be switched to a different medication when you go home. ?? Take Protonix exactly as your doctor ordered. ?? Swallow Protonix whole. Do not split, crush, or chew the tablet. ?? Protonix may be taken with or without food. It may be taken at the same time as antacids. ?? It is very important that you do not miss any doses of your Protonix. But if you do: o Take the missed dose if it has been less than 12 hours hours from the time you were supposed to take your medicine. o If your Protonix is more than 12 hours past due, skip that dose and continue with the next dose. o Do not take 2 doses at the same time unless your radio communication coordinator or doctor tells you to. ?? There are many medicines that can interfere with your Protonix. Always check with your radio communication coordinator or doctor before taking any other medicine, including qoel-ohd-mubbkew medicines (for example aspirin), vitamins, herbals, or vaccines. 40 mg Your tablets may not look exactly like this. ?? Do not keep Protonix in your bathroom. Keep your Protonix at room temperature, away from heat, moisture, and direct light. ?? Keep all medicine out of the reach of children. Possible Side Effects ?? Blistering, peeling, or loosening of skin ?? Skin rash, hives, or itching ?? Difficulty breathing ?? Difficulty swallowing ?? Swelling of face, tongue, or lips ?? Bloating and gas ?? Increased or frequent urination ?? Increased thirst Please call your radio communication coordinator, pharmacist, or doctor if you have any questions about thismedicine. * Kera Mahan - 02/01/2025 12:49 PM EDT Images from the original note were not included. Roxicodone - Video Learn how Roxicodone works to relieve your pain, possible side effects to be aware of, and how to properly use and store this medication. To view the video go to this web address: [email or web address] Or, scan this QR code with your smart phone ?? [employer] * Kera Mahan - 02/01/2025 12:49 PM EDT Images from the original note were not included. [id number] Metoclopramide Brand Name(s): Clopra??, Maxolon??, Metozolv?? ODT, Reglan??; also available generically IMPORTANT WARNING: Taking metoclopramide may cause you to develop a muscle problem called tardive dyskinesia. If you develop tardive dyskinesia, you will move your muscles, especially the muscles in your face in unusual ways. You will not be able to control or stop these movements. Tardive dyskinesia may not go away even after you stop taking metoclopramide. The longer you take metoclopramide, the greater the risk that you will develop tardive dyskinesia. Therefore, your doctor will probably tell you not to take metoclopramide for longer than 12 weeks. The risk that you will develop tardive dyskinesia is also greater if you are taking medications for mental illness, if you have diabetes, or if you are elderly, especially if you are a woman. Call your doctor immediately if you develop any uncontrollable bodymovements, especially lip smacking, mouth puckering, chewing, frowning, scowling, sticking out yourtongue, blinking, eye movements, or shaking arms or legs. Your doctor or pharmacist will give you the field cane scale clerk's patient information sheet (Medication Guide) when you begin treatment with metoclopramide and each time you refill your prescription. Read the information carefully and ask your doctor or pharmacist if you have any questions. You can also visit the Food and Drug Administration (FDA) website (https://www.fda.gov/Drugs/DrugSafety/uob140099.htm) or the field cane scale clerk's website to obtain the Medication Guide. Talk to your doctor about the risks of taking metoclopramide. WHY is this medicine prescribed? Metoclopramide is used to relieve heartburn and speed the healing of ulcers and sores in the esophagus (tube that connects the mouth to the stomach) in people who have gastroesophageal reflux disease(GERD; condition in which backward flow of acid from the stomach causes heartburn and injury of theesophagus) that did not get better with other treatments. Metoclopramide is also used to relieve sym ptoms caused by slow stomach emptying in people who have diabetes. These symptoms include nausea, vomiting, heartburn, loss of appetite, and feeling of fullness that lasts long after meals. Metoclopramide is in a class of medications called prokinetic agents. It works by speeding the movement of food through the stomach and intestines. HOW should this medicine be used? Metoclopramide comes as a tablet, an orally disintegrating (dissolving) tablet, and a solution (liquid) to take by mouth. It is usually taken 4 times a day on an empty stomach, 30 minutes before eachmeal and at bedtime. When metoclopramide is used to treat symptoms of GERD, it may be taken less frequently, especially if symptoms only occur at certain times of day. Follow the directions on your pr escription label carefully, and ask your doctor or pharmacist to explain any part you do not understand. Take metoclopramide exactly as directed. Do not take more or less of it or take it more often than prescribed by your doctor. If you are taking the orally disintegrating tablet, use dry hands to remove the tablet from the package just before you take your dose. If the tablet breaks or crumbles, dispose of it and remove a new tablet from the package. Gently remove the tablet and immediately place it on the top of your tongue. The tablet will usually dissolve in about one minute and can be swallowed with saliva. If you are taking metoclopramide to treat the symptoms of slow stomach emptying caused by diabetes,you should know that your symptoms will not improve all at once. You may notice that your nausea improves early in your treatment and continues to improve over the next 3 weeks. Your vomiting and loss of appetite may also improve early in your treatment, but it may take longer for your feeling of fullness to go away. Continue to take metoclopramide even if you feel well. Do not stop taking metoclopramide without talking to your doctor. You may experience withdrawal symptoms such as dizziness, nervousness, and headaches when you stop taking metoclopramide. Are there OTHER USES for this medicine? Metoclopramide is also sometimes used to treat the symptoms of slowed stomach emptying in people who are recovering from certain types of surgery, and to prevent nausea and vomiting in people who arebeing treated with chemotherapy for cancer. Ask your doctor about the risks of using this medication to treat your condition. This medication may be prescribed for other uses; ask your doctor or pharmacist for more information. What SPECIAL PRECAUTIONS should I follow? Before taking metoclopramide, ?? tell your doctor and pharmacist if you are allergic to metoclopramide, any other medications, orany of the ingredients in metoclopramide tablets or solution. Ask your doctor or pharmacist or check the Medication Guide for a list of the ingredients. ?? tell your doctor and pharmacist what prescription and nonprescription medications, vitamins, nutritional supplements and herbal products you are taking or plan to take while taking metoclopramide.Your doctor may need to change the doses of your medications or monitor you more carefully for side effects. ?? tell your doctor if you have or have ever had blockage, bleeding, or a tear in your stomach or intestines; pheochromocytoma (tumor on a small gland near the kidneys); or seizures. Your doctor willprobably tell you not to take metoclopramide. ?? tell your doctor if you have or have ever had Parkinson's disease (PD; a disorder of the nervoussystem that causes difficulties with movement, muscle control, and balance); high blood pressure; depression; breast cancer; asthma;gywcwyd-7-hyjlylwqe dehydrogenase (G-6PD) deficiency (an inherited blood disorder); NADH cytochrome B5 reductase deficiency (an inherited blood disorder); or heart, liver, or kidney disease. ?? tell your doctor if you are , plan to become , or are . If you become while taking metoclopramide, call your doctor. ?? talk to your doctor about the risks and benefits of taking metoclopramide if you are 65 years ofage or older. Older adults should not usually take metoclopramide, unless it is used to treat slow stomach emptying, because it is not as safe or effective as other medications that can be used to treat those conditions. ?? if you are having surgery, including dental surgery, tell the doctor or dentist that you are taking metoclopramide. ?? you should know that this medication may make you drowsy. Do not drive a car or operate machinery until you know how this medication affects you. ?? ask your doctor about the safe use of alcohol while you are taking this medication. Alcohol can make the side effects of metoclopramide worse. What SPECIAL DIETARY instructions should I follow? Unless your doctor tells you otherwise, continue your regular diet. What should I do IF I FORGET to take a dose? Take the missed dose as soon as you remember it. However, if it is almost time for the next dose, skip the missed dose and continue your regular dosing schedule. Do not take a double dose to make up for a missed one. What SIDE EFFECTS can this medicine cause? Some side effects can be serious. If you experience any of the following symptoms, or those mentioned in the IMPORTANT WARNING section, call your doctor immediately: ?? tightening of the muscles, especially in the jaw or neck ?? speech problems ?? depression ?? thinking about harming or killing yourself ?? fever ?? muscle stiffness ?? confusion ?? fast, slow, or irregular heartbeat ?? sweating ?? restlessness ?? nervousness or jitteriness ?? agitation ?? difficulty falling asleep or staying asleep ?? pacing ?? foot tapping ?? slow or stiff movements ?? blank facial expression ?? uncontrollable shaking of a part of the body ?? difficulty keeping your balance ?? rash ?? hives ?? swelling of the eyes, face, lips, tongue, mouth, throat, arms, hands, feet, ankles, or lower legs ?? sudden weight gain ?? difficulty breathing or swallowing ?? high-pitched sounds while breathing ?? vision problems Metoclopramide may cause other side effects. Call your doctor if you have any unusual problems while you are taking this medication. If you experience a serious side effect, you or your doctor may send a report to the Food and Drug Administration's (FDA) MedWatch Adverse Event Reporting program online (https://www.fda.gov/Safety/MedWatch) or by phone ( ). What should I know about STORAGE and DISPOSAL of this medication? Keep this medication in the container it came in, tightly closed, and out of reach of children. Store it at room temperature and away from excess heat and moisture (not in the bathroom). It is important to keep all medication out of sight and reach of children as many containers (such as weekly pill minders and those for eye drops, creams, patches, and inhalers) are not child-resistant and young children can open them easily. To protect young children from poisoning, always lock safety caps and immediately place the medication in a safe location - one that is up and away and out of their sight and reach. https://www.upandaway.org Unneeded medications should be disposed of in special ways to ensure that pets, children, and otherpeople cannot consume them. However, you should not flush this medication down the toilet. Instead,the best way to dispose of your medication is through a medicine take-back program. Talk to your pharmacist or contact your local garbage/recycling department to learn about take-back programs in your community. See the FDA's Safe Disposal of Medicines website (https://goo.gl/c4Rm4p) for more information if you do not have access to a take-back program. What should I do in case of OVERDOSE? In case of overdose, call the poison control helpline at . Information is also available online at https://www.poisonhelp.org/help. If the victim has collapsed, had a seizure, has trouble breathing, or can't be awakened, immediately call emergency services at 911. Symptoms of overdose may include the following: ?? drowsiness ?? confusion ?? seizures ?? unusual, uncontrollable movements ?? lack of energy ?? bluish coloring of the skin ?? headache ?? shortness of breath What OTHER INFORMATION should I know? Keep all appointments with your doctor. Do not let anyone else take your medication. Ask your pharmacist any questions you have about refilling your prescription. It is important for you to keep a written list of all of the prescription and nonprescription (nqii-vsj-crqncoj) medicines you are taking, as well as any products such as vitamins, minerals, or otherdietary supplements. You should bring this list with you each time you visit a doctor or if you areadmitted to a hospital. It is also important information to carry with you in case of emergencies. This report on medications is for your information only, and is not considered individual patient advice. Because of the changing nature of drug information, please consult your physician or pharmacist about specific clinical use. The [employer] represents that the information provided hereunder was formulated with a reasonable standard of care, and in conformity with professional standards in the field. The [employer] [place] makes no representations or warranties, express or implied, including, but not limited to, any implied warranty of merchantability and/or fitness for a particular purpose, with respect to such information and specifically disclaims all such warranties. Users are advised that decisions regarding drug therapy are complex medical decisions requiring the independent, informed decision of an appropriate health manager critical care unit, and the information is provided for informational purposes only. The entire monograph for a drug should be reviewed for a thorough understanding of the drug's actions, uses and side effects. The [employer] [place] does not endorse or recommend the use of any drug.The information is not a substitute for medical care. AHFS?? Patient Medication Information?. ?? Copyright, 2023. The [employer] [place]??, [address], [address], [place], [place]. All Rights Reserved. Duplication for commercial use must be authorized by [facility]. Selected Revisions: July 26, 2018. AHFS?? Patient Medication Information?. ?? Copyright, 2024 * Bereket LindquistNOEMI - Kera Garcia - 02/01/2025 12:49 PM EDT Images from the original note were not included. [id number] Lidocaine Transdermal Patch Brand Name(s): Absorbine Jr?? Plus, Aspercreme Patch??, Dermalid??, Lidocare??, Lidoderm??, Salonpas??, Ztlido??, Synera?? (containing lidocaine and tetracaine); also available generically WHY is this medicine prescribed? Prescription lidocaine transdermal (Dermalid, Lidoderm, Ztildo) is used to relieve the pain of post-herpetic neuralgia (PHN; burning, stabbing pains, or aches that may last for months or years after a shingles infection). Nonprescription ([id number]-[id number]) lidocaine (Absorbine Jr, Aspercreme, Lidoca re, Salonpas, others) is also available to relieve minor pain in shoulders, arms, neck and legs in adults and children 12 years of age and older. Lidocaine is in a class of medications called local anesthetics. It works by stopping nerves from sending pain signals. HOW should this medicine be used? Prescription lidocaine transdermal comes as a 5% patch (Dermalid, Lidoderm) and as a 1.8% topical system (Ztlido) to apply to the skin. Prescription lidocaine transdermal is applied only once a day as needed for pain. Never apply more than 3 of the lidocaine 5% patch or lidocaine 1.8% topical systems at one time, and never wear them for more than 12 hours per day (12 hours on and 12 hours off). Follow the directions on your prescription label carefully, and ask your doctor or pharmacist to explain any part you do not understand. Use lidocaine transdermal exactly as directed. Do not apply it more or less often than prescribed by your doctor. Nonprescription lidocaine transdermal comes as a 4% patch (Absorbine Jr, Aspercreme, Lidocare, Salonpas, others) to apply to the skin. It is applied up to 3 times daily and for no more than 8 hours per application. Use nonprescription lidocaine patches exactly as directed. Do not use more or less of it or use it more often or for a longer period of time than directed by the package instructions. Your doctor will tell you how many lidocaine patches or topical systems you may use at one time andthe length of time you may wear the patches. Applying too many patches or topical systems or leaving them on for too long may cause serious side effects. Apply the lidocaine patch or topical system to clean, dry, intact skin as directed. Choose an area where the patch will not be rubbed by tight clothing. Do not apply the patch or topical system to anopen wound or cut, to skin that is irritated or red, or to skin that is affected by a rash, burn, or other skin problem. If irritation or a burning sensation occurs during lidocaine application, remove the lidocaine patch or system and do not reapply it until the irritation is gone. Prescription patches and topical systems may be cut into smaller sizes with scissors prior to removal of the release liner. Be sure to remove the current patch before you apply a new one. Do not let lidocaine transdermal come in contact with your eyes. If lidocaine transdermal does touch your eye, immediately wash the eye with water or saline and protect the eye until sensation returns. While you are wearing a lidocaine transdermal patch or system, protect the treated area from directheat such as heating pads or electric blankets. You can apply the lidocaine 1.8% topical system after moderate heat exposure, such as 15 minutes of heating pad exposure on a medium setting. Do not bandage the affected area tightly. Do not shower, bathe, or go swimming while you are wearing the prescription lidocaine 5% transdermal patch. If you are using the prescription lidocaine 1.8% topical system, you may shower for up to 10 minutes or wear it while immersed in water for up to 15 minutes. If the lidocaine 1.8% topical system becomes wet, gently pat the skin, but do not rub the skin or lidocaine 1.8% topical system. If the lidocaine 1.8% topical system comes off completely or lifts at the edges, reattach it by pressing firmly on the edges of the topical system or lifted areas. If the lidocaine 1.8% topical system comes off completely more than once and does not stick to the skin, remove it and apply a new lidocaine topical system not to exceed 12 hours of total use. Wash your hands after handling lidocaine patches or topical system. Stop using nonprescription lidocaine 4% patch and call your doctor if your pain lasts for longer than 7 days or if your pain improves and then worsens. Ask your pharmacist or doctor for a copy of the field cane scale clerk's information for the patient. Are there OTHER USES for this medicine? This medication may be prescribed for other uses; ask your doctor or pharmacist for more information. What SPECIAL PRECAUTIONS should I follow? Before using lidocaine transdermal, ?? tell your doctor and pharmacist if you are allergic to lidocaine; other medications such as benzocaine. bupivacaine (Marcaine), etidocaine (Duranest), mepivacaine (Carbocaine, Prolocaine), prilocaine (Citanest), procaine, tetracaine, any other medications, or any of the ingredients in lidocaine t ransdermal. Ask your pharmacist for a list of the ingredients. ?? tell your doctor and pharmacist what prescription and nonprescription medications, vitamins, nutritional supplements, and herbal products you are taking or plan to take while using lidocaine transdermal. Your doctor may need to change the doses of your medications or monitor you carefully for side effects.. ?? the following nonprescription product may interact with lidocaine transdermal: acetaminophen (Tylenol). Be sure to let your doctor and pharmacist know that you are taking these medications before you start using lidocaine transdermal. Do not start any of these medications while using lidocaine tr ansderaml without discussing with your healthcare provider. ?? tell your doctor if you have or have ever had padhybd-5-orintzvdd dehydrogenase (G-6PD) deficiency (an inherited blood disorder), methemoglobinemia (a condition with defective red blood cells thatare unable to carry oxygen to the tissues in the body), or heart, lung, or liver disease. ?? tell your doctor if you are , plan to become , or are breast- feeding. If you become while using lidocaine patches or topical systems, call your doctor. ?? if you are having surgery, including dental surgery, tell the doctor or dentist that you are using lidocaine patches or topical systems. What SPECIAL DIETARY instructions should I follow? Unless your doctor tells you otherwise, continue your normal diet. What should I do IF I FORGET to take a dose? This medication is usually used as needed. If your doctor has told you to use lidocaine patches or topical systems regularly, apply the missed patch or topical system as soon as you remember it. However, if it is almost time for the next dose, skip the missed patch and continue your regular dosing schedule. Do not apply a double dose to make up for a missed one. What SIDE EFFECTS can this medicine cause? Some side effects can be serious. The following symptoms are uncommon, but if you experience any ofthem, call your doctor immediately: ?? hives ?? rash ?? itching ?? blisters ?? bruising ?? difficulty breathing or swallowing ?? swelling of the face, throat, tongue, lips, eyes, hands, feet, ankles, or lower legs ?? hoarseness ?? fast pulse or breathing ?? unusual thirst ?? nausea ?? vomiting ?? confusion ?? weakness ?? dizziness ?? fainting ?? pale, yao, or blue colored skin; headache; shortness of breath; lightheadedness; or fatigue Lidocaine transdermal may cause other side effects. Call your doctor if you have any unusual problems while using this medication. If you experience a serious side effect, you or your doctor may send a report to the Food and Drug Administration's (FDA) MedWatch Adverse Event Reporting program online (https://www.fda.gov/Safety/MedWatch) or by phone ( ). What should I know about STORAGE and DISPOSAL of this medication? Keep this medication in the container it came in, tightly closed, and out of reach of children. Store it at room temperature and away from excess heat and moisture (not in the bathroom). Do not storepatches and topical systems outside the sealed envelope. Fold used patches or topical systems so that the adhesive side sticks to itself and then safely discard into trash and where children and petscannot get to them. It is important to keep all medication out of sight and reach of children as many containers (such as weekly pill minders and those for eye drops, creams, patches, and inhalers) are not child-resistant and young children can open them easily. To protect young children from poisoning, always lock safety caps and immediately place the medication in a safe location - one that is up and away and out of their sight and reach. https://www.[facility].org Unneeded medications should be disposed of in special ways to ensure that pets, children, and otherpeople cannot consume them. However, you should not flush this medication down the toilet. Instead,the best way to dispose of your medication is through a medicine take-back program. Talk to your pharmacist or contact your local garbage/recycling department to learn about take-back programs in your community. See the FDA's Safe Disposal of Medicines website (https://goo.gl/c4Rm4p) for more information if you do not have access to a take-back program. What should I do in case of OVERDOSE? If you wear too many lidocaine transdermal patches or topical systems or wear them for too long, too much lidocaine may be absorbed into your blood. In that case, you may experience symptoms of an overdose. In case of overdose, call the poison control helpline at . Information is also available online at https://www.poisonhelp.org/help. If the victim has collapsed, had a seizure, has trouble breathing, or can't be awakened, immediately call emergency services at 381. Symptoms of overdose may include: ?? lightheadedness ?? nervousness ?? inappropriate happiness ?? confusion ?? dizziness ?? drowsiness ?? ringing in the ears ?? blurred or double vision ?? vomiting ?? feeling hot, cold, or numb ?? twitching or shaking that you cannot control ?? seizures ?? loss of consciousness ?? slow heartbeat What OTHER INFORMATION should I know? Keep all appointments with your doctor. Do not let anyone else use your medication. Ask your pharmacist any questions you have about refilling your prescription. It is important for you to keep a written list of all of the prescription and nonprescription (kdfw-kwn-jyyited) medicines you are taking, as well as any products such as vitamins, minerals, or otherdietary supplements. You should bring this list with you each time you visit a doctor or if you areadmitted to a hospital. It is also important information to carry with you in case of emergencies. This report on medications is for your information only, and is not considered individual patient advice. Because of the changing nature of drug information, please consult your physician or pharmacist about specific clinical use. The [employer] represents that the information provided hereunder was formulated with a reasonable standard of care, and in conformity with professional standards in the field. The [employer] makes no representations or warranties, express or implied, including, but not limited to, any implied warranty of merchantability and/or fitness for a particular purpose, with respect to such information and specifically disclaims all such warranties. Users are advised that decisions regarding drug therapy are complex medical decisions requiring the independent, informed decision of an appropriate health manager critical care unit, and the information is provided for informational purposes only. The entire monograph for a drug should be reviewed for a thorough understanding of the drug's actions, uses and side effects. The [employer] does not endorse or recommend the use of any drug.The information is not a substitute for medical care. AHFS?? Patient Medication Information?. ?? Copyright, 2023. The [employer]??, [address], [address], [place], [place]. All Rights Reserved. Duplication for commercial use must be authorized by [facility]. Selected Revisions: March 26, 2021. AHFS?? Patient Medication Information?. ?? Copyright, 2024 * [facility] - 02/01/2025 12:49 PM EDT Images from the original note were not included. [id number] Ibuprofen Brand Name(s): Addaprin??, Advil??, Cedaprin??, I-Prin??, Midol??, Motrin??, Motrin?? IB, NeoProfen??, Profen IB??, Proprinal??, Ultraprin??, Advil?? PM (as a combination product containing Diphenhydramine, Ibuprofen), Combunox?? (as a combination product containing Ibuprofen, Oxycodone), Duexis?? (as a combination product containing Famotidine, Ibuprofen), Ibudone?? (as a combination product containing Hydrocodone, Ibuprofen), Reprexain?? (as a combination product containing Hydrocodone, Ibuprofen), Vicoprofen?? (as a combination product containing Hydrocodone, Ibuprofen); also available generically IMPORTANT WARNING: People who take nonsteroidal anti-inflammatory drugs (NSAIDs) (other than aspirin) such as ibuprofen may have a higher risk of having a heart attack or a stroke than people who do not take these medications. These events may happen without warning and may cause . These problems may develop at any time during treatment, but the risk may be higher for people who take NSAIDs for a long time or at higher doses. Do not take an NSAID such as ibuprofen if you have recently had a heart attack, unless directed to do so by your doctor. Tell your doctor if you or anyone in your family has or has ever had heart disease, a heart attack, or a stroke; if you smoke; and if you have or have ever had high cholesterol, high blood pressure, or diabetes. Get emergency medical help right away if you experience any of the following symptoms: chest pain, shortness of breath, weakness in one part or side of the body, or slurred speech. If you will be undergoing a coronary artery bypass graft (CABG; a type of heart surgery), you should not take ibuprofen right before or right after the surgery. NSAIDs such as ibuprofen may cause ulcers, bleeding, or holes in the esophagus (tube between the mouth and stomach), stomach, or intestine. These problems may develop at any time during treatment, may happen without warning symptoms, and may cause . The risk may be higher for people who take NSAIDs for a long time, are older in age, have poor health, who smoke, or who drink large amounts of alcohol while taking ibuprofen. Tell your doctor if you take any of the following medications: anticoagulants ('blood thinners'); aspirin; other NSAIDs such as naproxen (Aleve, Naprosyn); oral steroids such as dexamethasone, methylprednisolone (Medrol), and prednisone (Lisa);selective serotonin reuptake inhibitors (SSRIs) such as citalopram (Celexa), fluoxetine (Prozac, Sarafem, Selfemra, in Symbyax), fluvoxamine (Luvox), paroxetine (Brisdelle, Paxil, Pexeva), and sertraline (Zoloft); or serotonin norepinephrine reuptake inhibitors (SNRIs) such as desvenlafaxine (Khedezla, Pristiq), duloxetine (Cymbalta), and venlafaxine (Effexor XR). Also tell your doctor if you have or have ever had ulcers, bleeding in your stomach or intestines, or other bleeding disorders. If you experience any of thefollowing symptoms, stop taking ibuprofen and call your doctor: stomach pain, heartburn, vomit thatis bloody or looks like coffee grounds, blood in the stool, or black and tarry stools. Keep all appointments with your doctor and the laboratory. Your doctor will monitor your symptoms carefully and will probably order certain tests to check your body's response to ibuprofen. Be sure to tell your doctor how you are feeling so that your doctor can prescribe the right amount of medication to treat your condition with the lowest risk of serious side effects. Your doctor or pharmacist will give you the field cane scale clerk's patient information sheet (Medication Guide) when you begin treatment with prescription ibuprofen and each time you refill your prescription. Read the information carefully and ask your doctor or pharmacist if you have any questions. You can also visit the Food and Drug Administration (FDA) website (https://www.fda.gov/Drugs/DrugSafety/efb069356.htm) or the field cane scale clerk's website to obtain the Medication Guide. WHY is this medicine prescribed? Prescription ibuprofen is used to relieve pain, tenderness, swelling, and stiffness caused by osteoarthritis (arthritis caused by a breakdown of the lining of the joints) and rheumatoid arthritis (arthritis caused by swelling of the lining of the joints). It is also used to relieve mild to moderatepain, including menstrual pain (pain that happens before or during a menstrual period). Nonprescription ibuprofen is used to reduce fever and to relieve minor aches and pain from headaches, muscle aches, arthritis, menstrual periods, the common cold, toothaches, and backaches. Ibuprofen is in a class of medications called NSAIDs. It works by stopping the body's production of a substance that causes pain, fever, and inflammation. HOW should this medicine be used? Prescription ibuprofen comes as a tablet and suspension (liquid) to take by mouth. It is usually taken three or four times a day for arthritis or every 4 to 6 hours as needed for pain. Nonprescription ibuprofen comes as a tablet, chewable tablet, capsule, gel capsule, suspension (liquid), and drops (concentrated liquid). Adults and children older than 12 years of age may usually take nonprescription ibuprofen every 4 to 6 hours as needed for pain or fever, but should not take more than 6 doses in 24 hours. Children and infants may usually be given nonprescription ibuprofen every 6 to 8 hours as needed for pain or fever, but should not be given more than 4 doses in 24 hours. Ibuprofen may betaken with food or milk to prevent stomach upset. If you are taking ibuprofen on a regular basis, you should take it at the same time(s) every day. Follow the directions on the package or prescription label carefully, and ask your doctor or pharmacist to explain any part you do not understand. Take ibuprofen exactly as directed. Do not take more or less of it or take it more often than directed by the package label or prescribed by your doctor. Ibuprofen comes alone and in combination with other medications. Some of these combination productsare available by prescription only, and some of these combination products are available without a prescription and are used to treat cough and cold symptoms and other conditions. If your doctor has prescribed a medication that contains ibuprofen, you should be careful not to take any nonprescription medications that also contain ibuprofen. Swallow the tablet whole; do not chew or crush it. If you are selecting a product to treat cough or cold symptoms, ask your doctor or pharmacist for advice on which product is best for you. Check nonprescription product labels carefully before using two or more products at the same time. These products may contain the same active ingredient(s) and taking them together could cause you to receive an overdose. This is especially important if you will be giving cough and cold medications to a child. Nonprescription cough and cold combination products, including products that contain ibuprofen, cancause serious side effects or in young children. Do not give these products to children younger than 4 years of age. If you give these products to children 4 to 11 years of age, use caution andfollow the package directions carefully. If you are giving ibuprofen or a combination product that contains ibuprofen to a child, read the package label carefully to be sure that it is the right product for a child of that age. Do not give ibuprofen products that are made for adults to children. Before you give an ibuprofen product to a child, check the package label to find out how much medication the child should receive. Give the dose that matches the child's age on the chart. Ask the child's doctor if you don't know how much medication to give the child. Shake the suspension and drops well before each use to mix the medication evenly. Use the measuringcup provided to measure each dose of the suspension, and use the dosing device provided to measure each dose of the drops. Stop taking nonprescription ibuprofen and call your doctor if your symptoms get worse, you develop new or unexpected symptoms, the part of your body that was painful becomes red or swollen, your painlasts for more than 10 days, or your fever lasts more than 3 days. Stop giving nonprescription ibuprofen to your child and call your child's doctor if your child does not start to feel better during the first 24 hours of treatment. Also stop giving nonprescription ibuprofen to your child and call your child's doctor if your child develops new symptoms, including redness or swelling on the painfulpart of his body, or if your child's pain or fever get worse or lasts longer than 3 days. Do not give nonprescription ibuprofen to a child who has a sore throat that is severe or does not go away, or that comes along with fever, headache, nausea, or vomiting. Call the child's doctor rightaway, because these symptoms may be signs of a more serious condition. Are there OTHER USES for this medicine? Ibuprofen is also sometimes used to treat ankylosing spondylitis (arthritis that mainly affects thespine), gouty arthritis (joint pain caused by a build-up of certain substances in the joints), and psoriatic arthritis (arthritis that occurs with a long-lasting skin disease that causes scaling and swelling). Talk to your doctor about the risks of using this drug for your condition. This medication is sometimes prescribed for other uses; ask your doctor or pharmacist for more information. What SPECIAL PRECAUTIONS should I follow? Before taking ibuprofen, ?? tell your doctor and pharmacist if you are allergic to ibuprofen, aspirin or other NSAIDs such as ketoprofen and naproxen (Aleve, Naprosyn), any other medications, or any of the inactive ingredients in the type of ibuprofen you plan to take. Ask your pharmacist or check the label on the package for a list of the inactive ingredients. ?? tell your doctor and pharmacist what prescription and nonprescription medications, vitamins, nutritional supplements, and herbal products you are taking or plan to take.Your doctor may need to change the doses of your medications or monitor you more carefully for side effects. ?? do not take nonprescription ibuprofen with any other medication for pain unless your doctor tells you that you should. ?? tell your doctor if you have or have ever had any of the conditions mentioned in the IMPORTANT WARNING section or asthma, especially if you also have frequent stuffed or runny nose or nasal polyps(swelling of the inside of the nose); heart failure; swelling of the hands, arms, feet, ankles, or lower legs; lupus (a condition in which the body attacks many of its own tissues and organs, often in cluding the skin, joints, blood, and kidneys); or liver or kidney disease. If you are giving ibuprofen to a child, tell the child's doctor if the child has not been drinking fluids or has lost a large amount of fluid from repeated vomiting or diarrhea. ?? tell your doctor if you are , plan to become ; or are breast- feeding. Ibuprofen may harm the fetus and cause problems with delivery if it is taken around 20 weeks or later during . Do not take ibuprofen around or after 20 weeks of , unless you are told to do so by your doctor. If you become while taking ibuprofen, call your doctor. ?? if you are having surgery, including dental surgery, tell the doctor or dentist that you are taking ibuprofen. ?? talk to your doctor about the risks and benefits of taking ibuprofen if you are 75 years of age or older. Do not take this medication for a longer period of time or at a higher dose than recommended on the product label or by your doctor. ?? if you have phenylketonuria (PKU, an inherited condition in which a special diet must be followed to prevent damage to your brain that can cause severe intellectual disability), read the package label carefully before taking nonprescription ibuprofen. Some types of nonprescription ibuprofen may be sweetened with aspartame, a source of phenylalanine. What SPECIAL DIETARY instructions should I follow? Unless your doctor tells you otherwise, continue your normal diet. What should I do IF I FORGET to take a dose? If you are taking ibuprofen on a regular basis, take the missed dose as soon as you remember it. However, if it is almost time for the next dose, skip the missed dose and continue your regular dosingschedule. Do not take a double dose to make up for a missed one. What SIDE EFFECTS can this medicine cause? Some side effects can be serious. If you experience any of the following symptoms, or those mentioned in the IMPORTANT WARNING section, call your doctor immediately. Do not take any more ibuprofen until you speak to your doctor. ?? unexplained weight gain ?? shortness of breath or difficulty breathing ?? swelling of the abdomen, feet, ankles, or lower legs ?? diarrhea ?? fever, rash, blisters, or peeling skin ?? itching ?? hives ?? swelling of the eyes, face, throat, arms, or hands ?? difficulty breathing or swallowing ?? hoarseness ?? excessive tiredness ?? pain in the upper right part of the stomach ?? nausea ?? loss of appetite ?? yellowing of the skin or eyes ?? flu-like symptoms ?? pale skin ?? fast heartbeat ?? cloudy, discolored, or bloody urine ?? back pain ?? difficult or painful urination ?? blurred vision, changes in color vision, or other vision problems ?? headache, stiff neck, fever Ibuprofen may cause other side effects. Call your doctor if you have any unusual problems while taking this medication. If you experience a serious side effect, you or your doctor may send a report to the Food and Drug Administration's (FDA) MedWatch Adverse Event Reporting program online (https://www.fda.gov/Safety/MedWatch) or by phone ( ). What should I know about STORAGE and DISPOSAL of this medication? Keep this medication in the container it came in, tightly closed, and out of reach of children. Store it at room temperature and away from excess heat and moisture (not in the bathroom). It is important to keep all medication out of sight and reach of children as many containers (such as weekly pill minders and those for eye drops, creams, patches, and inhalers) are not child-resistant and young children can open them easily. To protect young children from poisoning, always lock safety caps and immediately place the medication in a safe location - one that is up and away and out of their sight and reach. https://www.upandaway.org Unneeded medications should be disposed of in special ways to ensure that pets, children, and otherpeople cannot consume them. However, you should not flush this medication down the toilet. Instead,the best way to dispose of your medication is through a medicine take-back program. Talk to your pharmacist or contact your local garbage/recycling department to learn about take-back programs in your community. See the FDA's Safe Disposal of Medicines website (https://goo.gl/c4Rm4p) for more information if you do not have access to a take-back program. What should I do in case of OVERDOSE? In case of overdose, call the poison control helpline at . Information is also available online at https://www.poisonhelp.org/help. If the victim has collapsed, had a seizure, has trouble breathing, or can't be awakened, immediately call emergency services at 911. Symptoms of overdosage may include: ?? extreme tiredness ?? drowsiness ?? stomach pain ?? nausea ?? vomiting ?? slow or difficult breathing ?? dizziness ?? fast eye movements that you cannot control ?? blue color around the lips, mouth, and nose What OTHER INFORMATION should I know? If you are taking prescription ibuprofen, do not let anyone else take your medication. Ask your pharmacist any questions you have about refilling your prescription. It is important for you to keep a written list of all of the prescription and nonprescription (pbpl-obx-teaexvp) medicines you are taking, as well as any products such as vitamins, minerals, or otherdietary supplements. You should bring this list with you each time you visit a doctor or if you areadmitted to a hospital. It is also important information to carry with you in case of emergencies. This report on medications is for your information only, and is not considered individual patient advice. Because of the changing nature of drug information, please consult your physician or pharmacist about specific clinical use. The [employer] [place] represents that the information provided hereunder was formulated with a reasonable standard of care, and in conformity with professional standards in the field. The [place] [employer] makes no representations or warranties, express or implied, including, but not limited to, any implied warranty of merchantability and/or fitness for a particular purpose, with respect to such information and specifically disclaims all such warranties. Users are advised that decisions regarding drug therapy are complex medical decisions requiring the independent, informed decision of an appropriate health manager critical care unit, and the information is provided for informational purposes only. The entire monograph for a drug should be reviewed for a thorough understanding of the drug's actions, uses and side effects. The [employer] [place] does not endorse or recommend the use of any drug.The information is not a substitute for medical care. AHFS?? Patient Medication Information?. ?? Copyright, 2023. The [employer]??, [address], [address], [place], [place]. All Rights Reserved. Duplication for commercial use must be authorized by [facility]. Selected Revisions: June 26, 2023. AHFS?? Patient Medication Information?. ?? Copyright, 2024 * Bereket Hartman - Kera Garcia - 02/01/2025 12:49 PM EDT Images from the original note were not included. [id number] Acetaminophen Brand Name(s): Actamin??, Feverall??, Panadol??, Tempra Quicklets??, Tylenol??, Dayquil?? (as a combination product containing Acetaminophen, Dextromethorphan, Pseudoephedrine), NyQuil Cold/Flu Relief?? (as a combination product containing Acetaminophen, Dextromethorphan, Doxylamine), Percocet?? (as a combination product containing Acetaminophen, Oxycodone) APAP, I-zmvafx-jxvr-aminophenol, Paracetamol IMPORTANT WARNING: Taking too much acetaminophen can cause liver damage, sometimes serious enough to require liver transplantation or cause . You might accidentally take too much acetaminophen if you do not followthe directions on the prescription or package label carefully, or if you take more than one productthat contains acetaminophen. To be sure that you take acetaminophen safely, you should ?? not take more than one product that contains acetaminophen at a time. Read the labels of all theprescription and nonprescription medications you are taking to see if they contain acetaminophen. Be aware that abbreviations such as APAP, AC, Acetaminophen, Acetaminoph, Acetaminop, Acetamin, or Acetam. may be written on the label in place of the word acetaminophen. Ask your doctor or pharmacist i f you don't know if a medication that you are taking contains acetaminophen. ?? take acetaminophen exactly as directed on the prescription or package label. Do not take more acetaminophen or take it more often than directed, even if you still have fever or pain. Ask your doctor or pharmacist if you do not know how much medication to take or how often to take your medication. Call your doctor if you still have pain or fever after taking your medication as directed. ?? be aware that you should not take more than 4000 mg of acetaminophen per day. If you need to take more than one product that contains acetaminophen, it may be difficult for you to calculate the total amount of acetaminophen you are taking. Ask your doctor or pharmacist to help you. ?? tell your doctor if you have or have ever had liver disease. ?? not take acetaminophen if you drink three or more alcoholic drinks every day. Talk to your doctor about the safe use of alcohol while you are taking acetaminophen. ?? stop taking your medication and call your doctor right away if you think you have taken too muchacetaminophen, even if you feel well. Talk to your pharmacist or doctor if you have questions about the safe use of acetaminophen or acetaminophen-containing products. WHY is this medicine prescribed? Acetaminophen is used to relieve mild to moderate pain from headaches, muscle aches, menstrual periods, colds and sore throats, toothaches, backaches, reactions to vaccinations (shots), and to reducefever. Acetaminophen may also be used to relieve the pain of osteoarthritis (arthritis caused by the breakdown of the lining of the joints). Acetaminophen is in a class of medications called analgesics (pain relievers) and antipyretics (fever reducers). It works by changing the way the body senses pain and by cooling the body. HOW should this medicine be used? Acetaminophen comes as a tablet, chewable tablet, capsule, suspension or solution (liquid), extended-release (long-acting) tablet, and orally disintegrating tablet (tablet that dissolves quickly in the mouth), to take by mouth, with or without food. Acetaminophen is available without a prescription, but your doctor may prescribe acetaminophen to treat certain conditions. Follow the directions on the package or prescription label carefully, and ask your doctor or pharmacist to explain any part you do not understand. If you are giving acetaminophen to your child, read the package label carefully to make sure that it is the right product for the age of the child. Do not give children acetaminophen products that are made for adults. Some products for adults and older children may contain too much acetaminophen for a younger child. Check the package label to find out how much medication the child needs. If you know how much your child weighs, give the dose that matches that weight on the chart. If you don't know your child's weight, give the dose that matches your child's age. Ask your child's doctor if you don't know how much medication to give your child. Acetaminophen comes in combination with other medications to treat cough and cold symptoms. Ask your doctor or pharmacist for advice on which product is best for your symptoms. Check nonprescription cough and cold product labels carefully before using two or more products at the same time. These products may contain the same active ingredient(s) and taking them together could cause you to receivean overdose. This is especially important if you will be giving cough and cold medications to a child. Swallow the extended-release tablets whole; do not split, chew, crush, or dissolve them. Place the orally disintegrating tablet ('Meltaways') in your mouth and allow it to dissolve, or chew it before swallowing. Shake the suspension well before each use to mix the medication evenly. Always use the measuring cup or syringe provided by the field cane scale clerk to measure each dose of the solution or suspension. Do notswitch dosing devices between different products; always use the device that comes in the product packaging. Stop taking acetaminophen and call your doctor if your symptoms get worse, you develop new or unexpected symptoms, including redness or swelling, your pain lasts for more than 10 days, or your fever gets worse or lasts more than 3 days. Also stop giving acetaminophen to your child and call your child's doctor if your child develops new symptoms, including redness or swelling, or if your child's pain lasts for longer than 5 days, or if a fever gets worse or lasts longer than 3 days. Do not give acetaminophen to a child who has a sore throat that is severe or does not go away, or that occurs along with fever, headache, rash, nausea, or vomiting. Call the child's doctor right away, because these symptoms may be signs of a more serious condition. Are there OTHER USES for this medicine? Acetaminophen may also be used in combination with aspirin and caffeine to relieve the pain associated with migraine headache. This medication is sometimes prescribed for other uses; ask your doctor or pharmacist for more information. What SPECIAL PRECAUTIONS should I follow? Before taking acetaminophen, ?? tell your doctor and pharmacist if you are allergic to acetaminophen, any other medications, or any of the ingredients in the product. Ask your pharmacist or check the label on the package for a list of ingredients. ?? tell your doctor and pharmacist what prescription and nonprescription medications, vitamins, nutritional supplements, or herbal products you are taking or plan to take while taking acetaminophen. Your doctor may need to change the doses of your medications or monitor you carefully for side effects. ?? The following nonprescription products may interact with acetaminophen: medications for pain, coughs, fever, and colds. Be sure to let your doctor and pharmacist know that you are taking these medications before you start taking acetaminophen. Do not start any of these medications while taking acetaminophen without discussing with your healthcare provider. ?? tell your doctor if you have ever developed a rash after taking acetaminophen. ?? tell your doctor if you are , plan to become , or are breast- feeding. If you become while taking acetaminophen, call your doctor. ?? if you drink three or more alcoholic beverages every day, do not take acetaminophen. Ask your doctor or pharmacist about the safe use of alcoholic beverages while taking acetaminophen. ?? you should know that combination acetaminophen products for cough and colds that contain nasal decongestants, antihistamines, cough suppressants, and expectorants should not be used in children younger than 2 years of age. Use of these medications in young children can cause serious and life-threatening effects or . In children 2 through 11 years of age, combination cough and cold products should be used carefully and only according to the directions on the label. ?? if you have phenylketonuria (PKU, an inherited condition in which a special diet must be followed to prevent damage to your brain that can cause severe intellectual disability), you should know that some brands of acetaminophen chewable tablets may be sweetened with aspartame, a source of phenylalanine. What SPECIAL DIETARY instructions should I follow? Unless your doctor tells you otherwise, continue your normal diet. What should I do IF I FORGET to take a dose? This medication is usually taken as needed. If your doctor has told you to take acetaminophen regularly, take the missed dose as soon as you remember it. However, if it is almost time for the next dose, skip the missed dose and continue your regular dosing schedule. Do not take a double dose to make up for a missed one. What SIDE EFFECTS can this medicine cause? Some side effects can be serious. If you experience any of the following symptoms, stop taking acetaminophen and call your doctor immediately or get emergency medical attention: ?? red, peeling or blistering skin ?? rash ?? hives ?? itching ?? swelling of the face, throat, tongue, lips, eyes, hands, feet, ankles, or lower legs ?? hoarseness ?? difficulty breathing or swallowing Acetaminophen may cause other side effects. Call your doctor if you have any unusual problems whileyou are taking this medication. If you experience a serious side effect, you or your doctor may send a report to the Food and Drug Administration's (FDA) MedWatch Adverse Event Reporting program online (https://www.fda.gov/Safety/MedWatch) or by phone ( ). What should I know about STORAGE and DISPOSAL of this medication? Keep this medication in the container it came in, tightly closed, and out of reach of children. Store it at room temperature and away from excess heat and moisture (not in the bathroom). It is important to keep all medication out of sight and reach of children as many containers (such as weekly pill minders and those for eye drops, creams, patches, and inhalers) are not child-resistant and young children can open them easily. To protect young children from poisoning, always lock safety caps and immediately place the medication in a safe location - one that is up and away and out of their sight and reach. https://www.[employer].org Unneeded medications should be disposed of in special ways to ensure that pets, children, and otherpeople cannot consume them. However, you should not flush this medication down the toilet. Instead,the best way to dispose of your medication is through a medicine take-back program. Talk to your pharmacist or contact your local garbage/recycling department to learn about take-back programs in your community. See the FDA's Safe Disposal of Medicines website (https://goo.gl/c4Rm4p) for more information if you do not have access to a take-back program. What should I do in case of OVERDOSE? In case of overdose, call the poison control helpline at . Information is also available online at https://www.poisonhelp.org/help. If the victim has collapsed, had a seizure, has trouble breathing, or can't be awakened, immediately call emergency services at 911. If someone takes more than the recommended dose of acetaminophen, get medical help immediately, even if the person does not have any symptoms. Symptoms of overdose may include the following: ?? nausea ?? vomiting ?? loss of appetite ?? sweating ?? extreme tiredness ?? unusual bleeding or bruising ?? pain in the upper right part of the stomach ?? yellowing of the skin or eyes ?? flu-like symptoms What OTHER INFORMATION should I know? Before having any laboratory test, tell your doctor and the laboratory personnel that you are taking acetaminophen. Ask your pharmacist any questions you have about acetaminophen. It is important for you to keep a written list of all of the prescription and nonprescription (qbkv-szm-jomnyuq) medicines you are taking, as well as any products such as vitamins, minerals, or otherdietary supplements. You should bring this list with you each time you visit a doctor or if you areadmitted to a hospital. It is also important information to carry with you in case of emergencies. This report on medications is for your information only, and is not considered individual patient advice. Because of the changing nature of drug information, please consult your physician or pharmacist about specific clinical use. The [employer] [place] represents that the information provided hereunder was formulated with a reasonable standard of care, and in conformity with professional standards in the field. The [place] [employer] makes no representations or warranties, express or implied, including, but not limited to, any implied warranty of merchantability and/or fitness for a particular purpose, with respect to such information and specifically disclaims all such warranties. Users are advised that decisions regarding drug therapy are complex medical decisions requiring the independent, informed decision of an appropriate health manager critical care unit, and the information is provided for informational purposes only. The entire monograph for a drug should be reviewed for a thorough understanding of the drug's actions, uses and side effects. The [place] [employer] does not endorse or recommend the use of any drug.The information is not a substitute for medical care. AHFS?? Patient Medication Information?. ?? Copyright, 2023. [employer]??, [address], [address], [place], [place]. All Rights Reserved. Duplication for commercial use must be authorized by [facility]. Selected Revisions: June 26, 2023. AHFS?? Patient Medication Information?. ?? Copyright, 2024 * Bereket Hartman - Kera Garcia - 02/01/2025 12:48 PM EDT Images from the original note were not included. 492 Esophagectomy Discharge Instructions What do I need to know about my home care? Pain control ?? You may have some pain for weeks or months after surgery. ?? Keep taking your pain medicine as ordered until your pain is gone. As you heal, you should not need to take as much pain medicine. Incision care ?? Your incisions may be a bit red and painful the first week. ?? Your incisions may feel itchy. This is normal. ?? You may have to change your dressings. We will show you what you need to do. ?? You can take showers. Be very gentle while your incisions heal. Gently wash and pat them dry. ?? Do not soak your incisions until the doctor tells you it is OK. This means no tub baths, hot tubsoaking or swimming. ?? Wash your feeding tube site daily in the shower. Use warm soap and water. Bowel movements ?? Pain medicine and not being active can cause constipation. Your doctor may want you to take a stool softener. ?? Be active! Walking helps your bowels move. Eating ?? When you go home, you may get liquid food through the J-tube. ?? Once you can swallow, you will start to drink liquid food by mouth. ?? Next, your doctor will decide when you can eat soft foods. ?? At first, it will be hard for you to digest fats and sugars. This can cause dumping syndrome andyou may have cramps and diarrhea. To avoid this you should follow these tips: o Chew your food well before you swallow. o Do not drink liquids while you eat. Drink them before or after you eat. o Do not eat junk food. o Eat 6-8 small meals per day. Do not eat any large meals. Tracking your weight ?? Weigh yourself 2 times a week at the same time every day. Write down how much you weigh on a sheet of paper or calendar. Bring it with you to your next clinic visit. ?? Call your doctor if you lose 2 or more pounds per week. Your doctor may need to change your eating plan. Activity and rest ?? Sleep with your head up on 3 pillows. This will help keep food from your stomach out of your lungs. ?? Walk every day. But do not do any activity that makes you feel very tired for 12 weeks. ?? Take time to rest between activities. You will feel tired your first few weeks at home. ?? Your doctor will decide when you can return to your job. ?? It may take 3-6 months to get your strength back. What will happen at my clinic visits? Week 1 ?? You will have your first clinic visit in 1 week. Your doctor will see you at the [facility]. ?? Your doctor may give you a swallow study. ?? If you are healing well, you may start to drink liquid food by mouth, and you may still get liquid food through your J-tube. Week 2 ?? You will have another clinic visit. ?? If you are healing well, you may start eating soft foods. You will be weaned off the liquid foodyou get through your J-tube. ?? Once you no longer need it, we will take out the J-tube. When should I call my doctor? Call your doctor if you have any of these: ?? Lose more than 2 pounds in a week ?? Fever more than 100.4? Stomach sickness that does not go away ?? Vomiting ?? Problems swallowing ?? Black bowel movement ?? Feeling more weak ?? Problems breathing ?? Pain or swelling in your legs ?? Surgery cuts are warm, red or hard ?? Pus comes from your surgery cuts ?? Questions or concerns about your health To reach your doctor, call the [facility] at . Or you can call [employer] at . Special Instructions: 01/22 * Discharge Instr - Diet - Kera Garcia - 02/01/2025 12:47 PM EDT Nutrition: - Full liquid diet as tolerated and tube feeds. . J-tube care: - Flush feeding tube with water before connecting tube feeds and after disconnecting tube feeds. - Flush feeding tube with water before and after giving liquid medications. - May use abdominal binder if needed - Keep surrounding area around tube clean - Do NOT give crushed and/or powdered medications via j-tube. Liquid medications only. * Discharge Instr - Activity - Kera Garcia - 02/01/2025 12:46 PM EDT Activity: - Walking and climbing stairs is ok and encouraged. You should refrain from any strenuous activity/exercise until your follow up appointment. - No lifting anything >10lbs for the next 2 weeks - You may not drive for 48 hours after surgery, or while taking narcotics Dressing: - Any glue used to close and cover your incision: Do not pick it off, it will fall of on its own after approximately 2 weeks. The glue is waterproof but you should not soak your incision or take a tub bath for 2 weeks. - You should try to keep your incisions as clean and dry as possible - You may shower. Let the soapy water run over your incisions. Do not scrub at your incisions. After you shower, pat your incisions dry with a clean towel. - Do NOT soak your incisions, or take a tub bath for 2 weeks. - Toledo/Stitches will be removed at follow up appointment * Discharge Instr - AVS First Page - Kera Garcia - 02/01/2025 12:46 PM EDT Follow Up: - You will be contacted by the clinic for a follow up appointment with Dr. Devine in 2 weeks with 2view chest x ray - Contact the Thoracic Surgery team via: - For non-emergent questions/concerns: Clinic discharge # - For urgent questions/concerns: [facility] hotline: , option 4 - ask for the thoracic surgeon aeronautical test engineer. Medications: - You should take Tylenol and/or ibuprofen every 6 hours as needed for mild - moderate pain. - You have been prescribed pain medications to be taken as needed for severe pain. - You should take a stool softener prescribed as long as you are taking narcotics. - You may resume your previous medications by crushing them and taking them orally with liquid unless otherwise instructed. Do NOT put crushed medications into your feeding tube. Potential Issues: - It is normal to have some pain and soreness, especially around the incisions - A small amount of clear drainage from the incision may be expected, call the office if the drainage becomes bloody, purulent (pus), or foul-smelling - Call the office if you start to have increased redness, drainage, swelling, or increased pain around your incision - Call the office if you have a fever greater than 101 F - Call the office if you have severe abdominal discomfort, nausea and vomiting, or feeling unwell * Discharge Summary - Jimi Lawrence DO - 02/01/2025 12:29 PM EDT Images from the original note were not included. Hospitalization Admit Date/Time: 01/25/2025 5:44 AM Admitting Attending: Jeffery Devine Discharge Date: 02/01/2025 Discharge Attending Physician: Jeffery Devine DO PCP name and Address: Caridad Oliver, RN LIAISON [address] [place] [address] / [place] [id number] Referring provider name and address: No referring provider defined for this encounter. Chief Concern, Brief History of Present Illness, and Hospital Course Candido Rivera is a 54 y.o. female with history of refractory Achalasia who was taken to the operating room on 01/25/2025 after being on liquid diet for 2 weeks for elective Bronchoscopy, EGD,Minimally Invasive Estelita esophagectomy, and Lap J tube insertion for a second time after the first attempt at the procedure was aborted due to retained food in stomach on 01/09/2025. The patient tolerated the procedure well and was subsequently extubated and transferred to the ICU for recovery. The patient did well postoperatively, with pain well managed and tolerated advancements in tube feeds.Over the next few days following the procedure, lines and chest tubes were removed without issue and patient was downgraded from intensive care. At the time of discharge, patient was HDS, afebrile, tolerating tube feeds intake, ambulating, and voiding spontaneously. She was appropriate for discharge on 02/01/25 to Home. She will return to clinic with Dr. Devine in 2 weeks for follow-up with 2 view CXR. Surgeries and Procedures MINIMALLY INVASIVE ESOPHAGECTOMY, LAPAROSCOPIC (N/A) Medication List .. acetaminophen 160 MG/5ML solution Commonly known as: Tylenol 30 mL by Per J Tube route every 6 hours as needed (mild pain (1-3 on the numeric pain scale)). cetirizine 10 MG tablet Commonly known as: ZyrTEC Take 1 tablet by mouth daily as needed for allergies or rhinitis. escitalopram 10 MG tablet Commonly known as: Lexapro Take 1 tablet by mouth nightly. ibuprofen 100 MG/5ML suspension 30 mL by Per J Tube route every 6 (six) hours for 28 doses. * isosource 1.5 Pastor/mL liquid 55 mL/hr by Per J Tube route continuously at 55 mL/hr. Equivalent Substitutions Allowed? Yes * isosource 1.5 Pastor/mL 55 mL by Per J Tube route every 1 (one) hour. lidocaine 5 % patch Commonly known as: Lidoderm Apply 2 patches topically daily over 12 hours for 10 doses. Remove & discard patch within 12 hours or as directed by MD. Start taking on: February 02, 2025 metoclopramide 5 MG/5ML solution Commonly known as: Reglan 5 mL by Per J Tube route every 6 (six) hours. oxyCODONE 5 MG immediate release tablet Commonly known as: Roxicodone Take 1 tablet by mouth every 6 hours as needed for moderate pain. pantoprazole 40 MG EC tablet Commonly known as: Protonix Take 1 tablet by mouth daily before breakfast. Do not crush, chew, or split. valACYclovir 1 g tablet Commonly known as: Valtrex Take 1 tablet by mouth 3 (three) times a day as needed (Flare ups). Take 1 tablet by mouth 3 times daily for 5 days as needed * This list has 2 medication(s) that are the same as other medications prescribed for you. Read thedirections carefully, and ask your doctor or other care provider to review them with you. Where to Get Your Medications These medications were sent to [facility] - [place], [place] - [address] [facility] [id number] acetaminophen 160 MG/5ML solution ibuprofen 100 MG/5ML suspension lidocaine 5 % patch metoclopramide 5 MG/5ML solution oxyCODONE 5 MG immediate release tablet pantoprazole 40 MG EC tablet Discharge Diagnosis Medical Problems Active and Resolved Hospital Problems Hospital Heartburn High cholesterol Depression Overview Signed 01/27/2025 11:02 AM by Diamante Weber APRN Resume home medications as appropriate. RESOLVED: Electrolyte abnormality Overview Signed 01/27/2025 11:04 AM by Diamante Weber APRN Hypocalcemia Hypokalemia Hypomagnesemia Monitor - Replete as indicated * (Principal) RESOLVED: Achalasia Overview Addendum 01/29/2025 9:42 AM by Yeison Gallego MD 01/25/25 - Bronch, EGD, Minimally Invasive Estelita esophagectomy, Lap J tube insertion Following esophagectomy protocol. Post Discharge Instructions Medications: - You should take Tylenol and/or ibuprofen every 6 hours as needed for mild - moderate pain. - You have been prescribed pain medications to be taken as needed for severe pain. - You should take a stool softener prescribed as long as you are taking narcotics. - You may resume your previous medications by crushing them and taking them orally with liquid unless otherwise instructed. Do NOT put crushed medications into your feeding tube. Nutrition: - Full liquid diet as tolerated and tube feeds. Activity: - Walking and climbing stairs is ok and encouraged. You should refrain from any strenuous activity/exercise until your follow up appointment. - No lifting anything >10lbs for the next 2 weeks - You may not drive for 48 hours after surgery, or while taking narcotics Dressing: - Any glue used to close and cover your incision: Do not pick it off, it will fall of on its own after approximately 2 weeks. The glue is waterproof but you should not soak your incision or take a tub bath for 2 weeks. - You should try to keep your incisions as clean and dry as possible - You may shower. Let the soapy water run over your incisions. Do not scrub at your incisions. After you shower, pat your incisions dry with a clean towel. - Do NOT soak your incisions, or take a tub bath for 2 weeks. - Toledo/Stitches will be removed at follow up appointment. J-tube care: - Flush feeding tube with water before connecting tube feeds and after disconnecting tube feeds. - Flush feeding tube with water before and after giving liquid medications. - May use abdominal binder if needed - Keep surrounding area around tube clean - Do NOT give crushed and/or powdered medications via j-tube. Liquid medications only. Potential Issues: - It is normal to have some pain and soreness, especially around the incisions - A small amount of clear drainage from the incision may be expected, call the office if the drainage becomes bloody, purulent (pus), or foul-smelling - Call the office if you start to have increased redness, drainage, swelling, or increased pain around your incision - Call the office if you have a fever greater than 101 F - Call the office if you have severe abdominal discomfort, nausea and vomiting, or feeling unwell Follow Up: - You will be contacted by the clinic for a follow up appointment with Dr. Devine in 2 weeks with 2view chest x ray - Contact the Thoracic Surgery team via: - For non-emergent questions/concerns: Clinic discharge # - For urgent questions/concerns: [facility] hotline: , option 4 - ask for the thoracic surgeon aeronautical test engineer. Outpatient Follow-Up No future appointments. Test Results Pending At Discharge Pertinent Physical Exam At Time of Discharge Physical Exam General: Alert, NAD EYES: No scleral icterus or conjunctivitis HENT: Atraumatic, normocephalic, Left neck YOLI removed. Neck: No JVD or tracheal deviation Cardiac: Hemodynamically Stable Pulmonary: No increased effort on RA Abdomen: Soft, non-distended, J-tube in place. Surgical incision sites CDI, chiqui in place. Skin: No rashes Ext: No edema Neuro: No gross deficits Psych: Mood and affect congruent and appropriate to situation. Discharge Disposition/Condition Disposition: Home Condition: Stable (s/sx potential problems absent or manageable) I spent < 30 minutes of patient care and instruction time in preparation for this discharge. Cosigned by Jeffery Devine DO at 02/03/2025 9:52 AM EDT Associated attestation - Jeffery Devine DO - 02/03/2025 9:52 AM EDT I saw and evaluated the patient with the resident/fellow. I discussed the case with the resident/fellow and agree with the findings and plan as documented. * Progress Notes - Que Sahu RN - 02/01/2025 11:47 AM EDT Case Management Discharge Note Candido Rivera 54 y.o. female CSN: [id number] Admission: 01/25/2025 5:44 AM Primary Problem: Achalasia Primary Principal Network Engineer: Primary Caregiver: Self Assistance Available at Discharge: Current Outpatient/Agency/Support Group: infusion therapy, home Availability of Care Givers (#Hours): 24 hours Family/Principal Network Engineer(s) Willingness Assessed to care for patient at home: Yes Family/Principal Network Engineer(s) Readiness Assessed to care for patient at home: Yes Discharge Facility/Level of Care Needs: Discharge Facility/Level of Care Needs: 1-Home or Self Care Patient's Choice of Community Agency(s): Patient's Choice of Community Agency(s): n/a Patient/Family Anticipated Services at Transition: Patient/Family Anticipated Services at Transition: none DME/Equipment Needed after Discharge: Equipment Currently Used at Home: colostomy/ostomy/enteral supplies Equipment Needed After Discharge: none Readmission Within the Last 30 Days: Readmission Within the Last 30 Days: no previous admission in last 30 days Follow-up: No follow-up provider specified. Discharge Transportation: Transportation Anticipated: family or friend will provide Transportation Home at Discharge: Family/Friend will Provide Has discharge transport been arranged?: No Follow Up Transport: Transportation Needed to Follow up Appoinments: Family/Friend will Provide Additional Comments: Met with pt to discuss plan for discharge with her in agreement. Pt's son will provide transport home. Resumption order/referral sent to [employer] with Bella aware. No other needs. Que Sahu RN Case Non Licensed Nuclear Plant Operator 4 * Hospital Course - Jimi Lawrence DO - 02/01/2025 8:55 AM EDT Candido Rivera is a 54 y.o. female with history of refractory Achalasia who was taken to the operating room on 01/25/2025 after being on liquid diet for 2 weeks for elective Bronchoscopy, EGD,Minimally Invasive Estelita esophagectomy, and Lap J tube insertion for a second time after the first attempt at the procedure was aborted due to retained food in stomach on 01/09/2025. The patient tolerated the procedure well and was subsequently extubated and transferred to the ICU for recovery. The patient did well postoperatively, with pain well managed and tolerated advancements in tube feeds.Over the next few days following the procedure, lines and chest tubes were removed without issue and patient was downgraded from intensive care. At the time of discharge, patient was HDS, afebrile, tolerating tube feeds intake, ambulating, and voiding spontaneously. She was appropriate for discharge on 02/01/25 to Home. She will return to clinic with Dr. Devine in 2 weeks for follow-up with 2 view CXR. * Procedures - Lavern Marie RN - 01/31/2025 10:51 AM EDT Procedures Labs drawn with US and butterfly needle from left AC in x1 attempt. No complications, samples scanned, labeled and sent to lab. All pertinent images uploaded to PACS. * Care Plan - Marcial Lucia RN - 01/31/2025 10:27 AM EDT Problem: Adult Inpatient Plan of Care Goal: Plan of Care Review Outcome: Ongoing, Progressing Flowsheets (Taken 01/31/2025 1027) Progress: improving Plan of Care Reviewed With: patient Goal: Patient-Specific Goal (Individualized) Outcome: Ongoing, Progressing Flowsheets (Taken 01/31/2025 0800) Patient/Family-Specific Goals (Include Timeframe): patient will be out of bed and in her chair for at least 2 hours during day shift today! Individualized Care Needs: none Anxieties, Fears or Concerns: none Goal: Absence of Hospital-Acquired Illness or Injury Outcome: Ongoing, Progressing Goal: Optimal Comfort and Wellbeing Outcome: Ongoing, Progressing Goal: Readiness for Transition of Care Outcome: Ongoing, Progressing Problem: Infection Goal: Absence of Infection Signs and Symptoms Outcome: Ongoing, Progressing * Progress Notes - Jimi Lawrence DO - 01/31/2025 7:50 AM EDT Images from the original note were not included. [facility] Department of Surgery Section of Thoracic Surgery ICU Progress Note 01/31/25 Candido Rivera History of Present Illness Candido Rivera is a 54 y.o. female PMHx GERD, end stage achalasia s/p Heller myotomy and Yasmeen fundoplication (2017) 6 Days Post-Op from a Estelita esophagectomy for end stage achalasia with Dr. Devine. Procedures this admission 01/25/25: Estelita Esophagectomy, j-tube replacement Events of last 24 hours UGI unremarkable, started sips, increased free water. NAEON AF, HDS, on RA. UOP 5x during day, Drain 13, no BM all over last 24 hrs. CXR stable Relevant review of systems was obtained as able and is negative unless stated above in HPI. Physical Exam: Visit Vitals BP 119/81 (BP Location: Right arm) Pulse (!) 126 Temp 37.3 ??C (99.1 ??F) (Oral) Ht 1.6 m (5' 2.99 ) Wt 74.5 kg (164 lb 3.9 oz) SpO2 94% BMI 29.10 kg/m?? General: Alert, NAD EYES: No scleral icterus or conjunctivitis HENT: Atraumatic, normocephalic, Left neck YOLI in place Neck: No JVD or tracheal deviation Cardiac: Hemodynamically Stable Pulmonary: No increased effort on 1LNC Abdomen: Soft, non-distended, J-tube in place. Surgical incision sites CDI. Skin: No rashes Ext: No edema Neuro: No gross deficits Psych: Mood and affect congruent and appropriate to situation. Intake/Output Summary (Last 24 hours) at 01/31/2025 0750 Last data filed at 01/31/2025 0550 Gross per 24 hour Intake 1710 ml Output 13 ml Net 1697 ml Lines/Drains/Tubes: Patient Lines/Drains/Airways Status Active Airway None Output by Drain (mL) 01/29/25 0700 - 01/29/25 1859 01/29/25 1900 - 01/30/25 0659 01/30/25 0700 - 01/30/25 1859 01/30/25 1900 - 01/31/25 0659 01/31/25 0700 - 01/31/25 0750 Closed/Suction Drain Left;Superior;Medial Chest Bulb 9.5 20 10 3 Labs in last 18 hours: CBC WBC ?? Hb ?? Plt ?? Hct ?? ANC ?? INR ??, PTT ??, Anti-Xa ?? MCV ?? BMP Na ?? Cl ?? BUN ?? Glu ?? K ?? Co2 ?? Cr ?? Ca ?? iCa ?? Mg ??, Phos ?? Lactate ?? LFT AST ?? AlkPhos ?? T Prot ?? ALK ?? Bili ?? Alb ?? D.Bili ?? Lab Trends: H/H Results from last 7 days Lab Units 01/30/25 1022 01/29/25 0138 01/28/25 0608 HEMOGLOBIN g/dL 12.3 10.4* 10.4* HEMATOCRIT % 36.9 30.6* 31.2* INR Cr Results from last 7 days Lab Units 01/30/25 1022 01/29/25 0138 01/28/25 0608 CREATININE mg/dL 0.55* 0.53* 0.53* Medications reviewed. Vital signs reviewed. Labs reviewed. Radiography reviewed. CXR: stable aeration Assessment and Plan: Principal Problem: Achalasia Active Problems: Heartburn High cholesterol Depression Electrolyte abnormality Present on Admission: Achalasia Heartburn High cholesterol Depression Electrolyte abnormality Candido Rivera is a 54 year old female with PMHx GERD, end stage achalasia s/p Heller myotomy andDorr fundoplication (2016) now s/p minimally invasive Estelita esophagectomy, lap J tube insertion on 01/[address] Devine (6 Days Post-Op). Plan: - CLD, non carbonated beverages. - Follow up labs - tentative plan for home tomorrow - UGI 01/30: Stable, no leak, - YOLI to bulb: monitor output after UGI - Strict NPO, NGT to LIS - Fluids: 75 ml/hr - Advance TF through J tube - Okay for liquid meds via j-tube/No crushed or powdered meds via j-tube - Ppx: Enoxaparin 40 mg - OOB to chair and ambulate TID - Continue ICU care No electrolyte replacement protocol order Jimi Lawrence DO Thoracic Surgery Cosigned by Jeffery Devine DO at 01/31/2025 8:36 AM EDT Associated attestation - Jeffery Devine DO - 01/31/2025 8:36 AM EDT I saw and evaluated the patient with the resident/fellow. I discussed the case with the resident/fellow and agree with the findings and plan as documented. * Consults - Maya Green, RD - 01/30/2025 12:15 PM EDT Adult Nutrition Evaluation Note Candido Rivera 54 y.o. female CSN: [id number] Room/Bed 122/122A Nutrition evaluation type: assessment Reason for evaluation: provider consult Hospital course: 54 y.o. female 1 Day Post-Op from a Estelita esophagectomy for end stage achalasia.Previous placement of j-tube. Past medical/ surgical history: has a past medical history of Allergies, Arthritis, Depression, Heartburn, and High cholesterol. Social history: Additional comments: 01/26: Pt not feeling well at time of visit (NFPE not completed). She confirms she was receiving Isosource 1.5 @ 65 mL/hr x 19 hrs + full liquid diet at home with good tolerance of nutrition regimen. She reports overall stable wt, with possible recent ~2# wt loss. 01/30: Pt continues NPO with sips of CL. TF via J tube ongoing. Vitals and Basic Assessment: BP: 116/68 Temp: 36.9 ??C (98.5 ??F) Oxygen Therapy: Supplemental oxygen O2 Delivery Method: Nasal cannula Rai Coma Scale Score: 15 Nando Scale Score: 20 Sarbjit/Cubbin Pressure Risk Score: 43 Most Recent BM Date: 01/29/25 GI Symptoms: None Edema: Generalized Allergies: no food allergies listed Medications: acetylcysteine, 4 mL, Nebulization, BID enoxaparin, 40 mg, Subcutaneous, Daily ibuprofen, 600 mg, Per J Tube, q6h SOURAV ipratropium-albuterol, 3 mL, Nebulization, q6h RT lidocaine, 2 patch, Apply externally, q24h SOURAV metoclopramide, 5 mg, Intravenous, q6h SOURAV omeprazole-sodium bicarbonate, 40 mg, Per J Tube, Daily PRN medications: acetaminophen, oxyCODONE OR oxyCODONE, phenol Meds were reviewed: Yes Labs: Labs in last 18 hours CBC WBC 8.32 Hb 12.3 Plt 318 Hct 36.9 ANC ?? INR ??, PTT ??, Anti-Xa ?? BMP Na 143 Cl 107 BUN 9 Glu 102 (H) K 4.2 Co2 22 Cr 0.55 (L) Ca 9.6 iCa ?? Mg 1.9, Phos 4.8 (H) Lactate ?? LFT AST ?? AlkPhos ?? T Prot ?? ALK ?? Bili ?? Alb ?? D.Bili ?? Anthropometrics: Height: 160 cm (5' 2.99 ) Weight: 74.5 kg (164 lb 3.9 oz) BMI (Calculated): 29.1 Weight Evaluation: Overweight (BMI 25-29.9) [place] Body Weight (kg): 52.3 Percent [place] Body Weight: 142 Adjusted Body Weight (kg): 57.9 Wt Readings from Last 10 Encounters: 01/30/25 74.5 kg (164 lb 3.9 oz) 01/19/25 74 kg (163 lb 2.3 oz) 01/10/25 74.5 kg (164 lb 3.9 oz) 01/06/25 74.5 kg (164 lb 3.9 oz) 09/22/24 77 kg (169 lb 12.1 oz) 08/18/24 76.3 kg (168 lb 3.4 oz) 07/26/24 76.4 kg (168 lb 6.9 oz) 04/15/24 75.1 kg (165 lb 9.1 oz) Estimated Needs: Kcal/ K-35 Kcal Provided: 8037-9908 Kcal Needs Based On: Adjusted weight Gm Protein/ Kg : 1.3-1.6 Protein Provided: 75-92 Protein Needs Based On: Adjusted weight Metabolic Cart Study Results: Current Nutrition Intake: Diet Order: NPO Enteral Nutrition Formula/Solution: Isosource 1.5 Tube Feeding Route: J-tube Current Tube Feed Rate (Continuous or Intermittent): 40 Goal Tube Feed Rate (Continuous or Intermittent): 65 Feeding Tube Flush: Per team Kcal Provided by EN: 2145 Protein Provided by EN: 97 Water Provided by EN: 1092 Grams of Carbs Provided by EN: 251 Diet Experience and Nutrition History: Diet Education Provided: Will monitor Pertinent home medications: Moravian needs: Nutrition Focused Physical Exam: Physical exam performed on (date): 01/30/25 Temples (muscles): Mild Clavicle (muscle): None Shoulder (muscle): None Interosseous (muscle): None Thigh (muscle): None Calf (muscle): None Orbital (fat): None Triceps (fat): None Assessment of Malnutrition: Malnutrition Identified: No Nutrition Problem: Inadequate oral intake related to esophagectomy as evidenced by need for EN support per j-tube. Status of Nutrition Diagnosis: Ongoing Nutrition Interventions and Recommendations: -NPO per team - For TF: Recommend Isosource 1.5 with goal of 55 mL/hr (Provides x 22 hrs (1210 mL): 1815 kcal, 82gm prot, 18 gm fiber, 920 mL H2O). -Adjust PRN should PO resume - Fluid adjustment/FW per MD team. Nutrition Monitoring and Goals: - TF initiation- met ongoing - monitor elytes- ongoing - monitor weight- ongoing - complete NFPE- completed Acuity Level: [address], LD * Care Plan - Guerita Weiner RN - 01/30/2025 11:46 AM EDT Problem: Adult Inpatient Plan of Care Goal: Plan of Care Review Outcome: Ongoing, Progressing Flowsheets (Taken 01/30/2025 1146) Progress: improving Plan of Care Reviewed With: patient Goal: Patient-Specific Goal (Individualized) Outcome: Ongoing, Progressing Flowsheets (Taken 01/30/2025 0800) Patient/Family-Specific Goals (Include Timeframe): pt will remain oxygen saturations above 92% for the duration of the shift. Individualized Care Needs: safety Anxieties, Fears or Concerns: none expressed Goal: Absence of Hospital-Acquired Illness or Injury Outcome: Ongoing, Progressing Intervention: Identify and Manage Fall Risk Flowsheets (Taken 01/30/2025 1146) Safety Promotion/Fall Prevention: assistive device/personal items within reach fall prevention program maintained room organization consistent safety round/check completed lighting adjusted mobility aid in reach nonskid shoes/slippers when out of bed clutter-free environment maintained Intervention: Prevent Skin Injury Flowsheets Taken 01/30/2025 1146 by Guerita Weiner RN Skin Protection: transparent dressing maintained incontinence pads utilized Taken 01/30/2025 0808 by Lian Rene CNA Body Position: weight shifting Intervention: Prevent and Manage VTE (Venous Thromboembolism) Risk Flowsheets (Taken 01/30/2025 0401 by Duong Savage RN) VTE Prevention/Management: bilateral SCDs (sequential compression devices) off medication previous patient education reinforced Intervention: Prevent Infection Flowsheets (Taken 01/30/2025 1146) Infection Prevention: environmental surveillance performed cohorting utilized personal protective equipment utilized rest/sleep promoted equipment surfaces disinfected single patient room provided hand hygiene promoted visitors restricted/screened Goal: Optimal Comfort and Wellbeing Outcome: Ongoing, Progressing Intervention: Monitor Pain and Promote Comfort Flowsheets (Taken 01/29/2025 0600 by Duong Savage RN) Pain Management Interventions: medication (see MAR) Intervention: Provide Person-Centered Care Flowsheets (Taken 01/30/2025 1146) Trust Relationship/Rapport: choices provided care explained questions encouraged reassurance provided emotional support provided empathic listening provided thoughts/feelings acknowledged questions answered Goal: Readiness for Transition of Care Outcome: Ongoing, Progressing Problem: Infection Goal: Absence of Infection Signs and Symptoms Outcome: Ongoing, Progressing * Progress Notes - Carlee Díaz RN - 01/30/2025 9:39 AM EDT Case Management Adult Progress Note Candido Rivera 54 y.o. female CSN: [id number] Admission: 01/25/2025 5:44 AM Primary Problem: Achalasia Anticipated Discharge Date: 1-2 days Additional Comments: RONY RICHARD reviewed chart and met with primary team to discuss plan of care. Patient is scheduled for UGI today. Patient not medically ready for discharge at this time. RONY RICHARD will continue to follow. Carlee Díaz RN * Progress Notes - Jimi Lawrence DO - 01/30/2025 7:24 AM EDT Images from the original note were not included. [facility] Department of Surgery Section of Thoracic Surgery ICU Progress Note 01/30/25 Candido Rivera History of Present Illness Candido Rivera is a 54 y.o. female PMHx GERD, end stage achalasia s/p Heller myotomy and Yasmeen fundoplication (2017) 5 Days Post-Op from a Estelita esophagectomy for end stage achalasia with Dr. Devine. Procedures this admission 01/25/25: Estelita Esophagectomy, j-tube replacement Events of last 24 hours Overnight: Vascular access consult placed, unable to get AM labs. AF, VSS, 1 L NC Drain 19.5 (10), UOP 5x (6x), Stool 0x (4x) WBC (12.38), Cr (0.53), hgb (10.4) CXR stable Relevant review of systems was obtained as able and is negative unless stated above in HPI. Physical Exam: Visit Vitals BP 125/84 (BP Location: Left arm, Patient Position: Lying) Pulse 73 Temp 37 ??C (98.6 ??F) (Oral) Ht 1.6 m (5' 3 ) Wt 74.5 kg (164 lb 3.9 oz) SpO2 96% BMI 29.09 kg/m?? General: Alert, NAD EYES: No scleral icterus or conjunctivitis HENT: Atraumatic, normocephalic, Left neck YOLI in place Neck: No JVD or tracheal deviation Cardiac: Hemodynamically Stable Pulmonary: No increased effort on 1LNC Abdomen: Soft, non-distended, J-tube in place. Surgical incision sites CDI. Skin: No rashes Ext: No edema Neuro: No gross deficits Psych: Mood and affect congruent and appropriate to situation. Intake/Output Summary (Last 24 hours) at 01/30/2025 0724 Last data filed at 01/30/2025 0401 Gross per 24 hour Intake 1135 ml Output 29.5 ml Net 1105.5 ml Lines/Drains/Tubes: Patient Lines/Drains/Airways Status Active Airway None Output by Drain (mL) 01/28/25 0700 - 01/28/25 1859 01/28/25 1900 - 01/29/25 0659 01/29/25 0700 - 01/29/25 1859 01/29/25 1900 - 01/30/25 0659 01/30/25 0700 - 01/30/25 0724 Closed/Suction Drain Left;Superior;Medial Chest Bulb 10 9.5 20 Labs in last 18 hours: CBC WBC ?? Hb ?? Plt ?? Hct ?? ANC ?? INR ??, PTT ??, Anti-Xa ?? MCV ?? BMP Na ?? Cl ?? BUN ?? Glu ?? K ?? Co2 ?? Cr ?? Ca ?? iCa ?? Mg ??, Phos ?? Lactate ?? LFT AST ?? AlkPhos ?? T Prot ?? ALK ?? Bili ?? Alb ?? D.Bili ?? Lab Trends: H/H Results from last 7 days Lab Units 01/29/25 0138 01/28/25 0608 01/27/25 0442 HEMOGLOBIN g/dL 10.4* 10.4* 11.9 HEMATOCRIT % 30.6* 31.2* 37.1 INR Cr Results from last 7 days Lab Units 01/29/25 0138 01/28/25 0608 01/27/25 0440 CREATININE mg/dL 0.53* 0.53* 0.71 Medications reviewed. Vital signs reviewed. Labs reviewed. Radiography reviewed. CXR: stable aeration Assessment and Plan: Principal Problem: Achalasia Active Problems: Heartburn High cholesterol Depression Electrolyte abnormality Present on Admission: Achalasia Heartburn High cholesterol Depression Electrolyte abnormality Candido Rivera is a 54 year old female with PMHx GERD, end stage achalasia s/p Heller myotomy andDorr fundoplication (2016) now s/p minimally invasive Estelita esophagectomy, lap J tube insertion on 01/[address] Devine (5 Days Post-Op). Plan: - UGI today - Follow up labs - YOLI to bulb - Strict NPO - Fluids: 75 ml/hr - Advance TF through J tube - Okay for liquid meds via j-tube/No crushed or powdered meds via j-tube - Ppx: Enoxaparin 40 mg - OOB to chair and ambulate TID - Continue ICU care No electrolyte replacement protocol order Jimi Lawrence DO Thoracic Surgery Cosigned by Jade De Santiago MD at 01/30/2025 5:32 PM EDT Associated attestation - Jade De Santiago MD - 01/30/2025 5:32 PM EDT I saw and evaluated the patient with the resident/fellow. I discussed the case with the resident/fellow and agree with the findings and plan as documented. * Care Plan - Duong Savage RN - 01/29/2025 8:06 PM EDT Problem: Adult Inpatient Plan of Care Goal: Plan of Care Review Outcome: Ongoing, Progressing Goal: Patient-Specific Goal (Individualized) Outcome: Ongoing, Progressing Goal: Absence of Hospital-Acquired Illness or Injury Outcome: Ongoing, Progressing Goal: Optimal Comfort and Wellbeing Outcome: Ongoing, Progressing Goal: Readiness for Transition of Care Outcome: Ongoing, Progressing Problem: Infection Goal: Absence of Infection Signs and Symptoms Outcome: Ongoing, Progressing * Progress Notes - Yeison Gallego MD - 01/29/2025 7:05 AM EDT Images from the original note were not included. [facility] Department of Surgery Section of Thoracic Surgery ICU Progress Note 01/29/25 Candido Rivera History of Present Illness Candido Rivera is a 54 y.o. female PMHx GERD, end stage achalasia s/p Heller myotomy and Emmalena fundoplication (2016) 4 Days Post-Op from a Estelita esophagectomy for end stage achalasia with Dr. Devine. Procedures this admission 01/25/25: Estelita Esophagectomy, j-tube replacement Events of last 24 hours NAEON. Tolerating TF after she was started on trickle feeds yesterday. Continues to have bowel movements. Making good urine. AF, VSS, 1 L NC Drain 0 (350), NG 160 (200), UOP 4x (950 + 5x), Stool 4x (5x) WBC 12.38 (9.14), Cr 0.53 (0.53), hgb 10.4 (10.4) CXR stable Relevant review of systems was obtained as able and is negative unless stated above in HPI. Physical Exam: Visit Vitals BP 103/77 (BP Location: Right arm, Patient Position: Lying) Pulse 82 Temp 36.9 ??C (98.4 ??F) (Oral) Ht 1.6 m (5' 3 ) Wt 74.5 kg (164 lb 3.9 oz) SpO2 94% BMI 29.09 kg/m?? GENERAL: WD, WN, NAD EYES: No scleral icterus or conjunctivitis HENT: Atraumatic, normocephalic, nares patent, mucus membranes moist. Left neck YOLI in place RESP/CHEST: symmetric chest rise, non-labored CARD: regular rate and rhythm GI: soft, non-distended. J-tube in place. SKIN: Surgical incision sites CDI. NEURO: AAOx4. Motor intact and no focal deficits PSYCH: Mood and affect congruent and appropriate to situation Intake/Output Summary (Last 24 hours) at 01/29/2025 0942 Last data filed at 01/29/2025 0401 Gross per 24 hour Intake 60 ml Output 180 ml Net -120 ml Lines/Drains/Tubes: Patient Lines/Drains/Airways Status Active Airway None Output by Drain (mL) 01/27/25 07 - 01/27/25 18501/27/25 1900 - 01/28/25 0659 01/28/25 0700 - 01/28/25 1859 01/28/25 1900 - 01/29/25 0659 01/29/25 0700 - 01/29/25 0942 Closed/Suction Drain Left;Superior;Medial Chest Bulb 320 30 10 Labs in last 18 hours: CBC WBC 12.38 (H) Hb 10.4 (L) Plt 241 Hct 30.6 (L) ANC ?? INR ??, PTT ??, Anti-Xa ?? MCV 88 BMP Na 138 Cl 111 (H) BUN 5 (L) Glu 120 (H) K 4.3 Co2 20 (L) Cr 0.53 (L) Ca 7.9 (L) iCa ?? Mg 2.2, Phos 3.1 Lactate ?? LFT AST ?? AlkPhos ?? T Prot ?? ALK ?? Bili ?? Alb ?? D.Bili ?? Lab Trends: H/H Results from last 7 days Lab Units 01/29/25 0138 01/28/25 0608 01/27/25 0442 HEMOGLOBIN g/dL 10.4* 10.4* 11.9 HEMATOCRIT % 30.6* 31.2* 37.1 INR Cr Results from last 7 days Lab Units 01/29/25 0138 01/28/25 0608 01/27/25 0440 CREATININE mg/dL 0.53* 0.53* 0.71 Medications reviewed. Vital signs reviewed. Labs reviewed. Radiography reviewed. CXR: stable aeration Assessment and Plan: Principal Problem: Achalasia Active Problems: Heartburn High cholesterol Depression Electrolyte abnormality Present on Admission: Achalasia Heartburn High cholesterol Depression Electrolyte abnormality Candido Rivera is a 54 year old female with PMHx GERD, end stage achalasia s/p Heller myotomy andDorr fundoplication (2016) now s/p minimally invasive Estelita esophagectomy, lap J tube insertion on 01/[address] Devine (4 Days Post-Op). Plan: - Okay for liquid meds via j-tube - No crushed or powdered meds via j-tube - Advance TF through J-Tube today - Pull NGT - UGI tomorrow - Strict NPO - Cap mIVF - Ppx: Enoxaparin 40 mg - OOB to chair and ambulate TID - Continue ICU care Yeison Gallego MD Thoracic Surgery Cosigned by Jade De Santiago MD at 01/30/2025 5:26 PM EDT Associated attestation - Jade De Santiago MD - 01/30/2025 5:26 PM EDT I saw and evaluated the patient with the resident/fellow. I discussed the case with the resident/fellow and agree with the findings and plan as documented. * Consults - Carol Melissa RN - 01/29/2025 1:40 AM EDTAssociated Order(s): IP CONSULT TO ADULT VASCULAR ACCESS TEAM Labs obtained using ultrasound guidance. Labeled and collected in Epic at bedside. Handed off to RN. Patient tolerated well, no complications such as bleeding or hematoma. Vein images sent to [facility]. Consult completed. * Care Plan - Duong Savage RN - 01/28/2025 11:55 PM EDT Problem: Adult Inpatient Plan of Care Goal: Plan of Care Review Outcome: Ongoing, Progressing Goal: Patient-Specific Goal (Individualized) Outcome: Ongoing, Progressing Goal: Absence of Hospital-Acquired Illness or Injury Outcome: Ongoing, Progressing Goal: Optimal Comfort and Wellbeing Outcome: Ongoing, Progressing Goal: Readiness for Transition of Care Outcome: Ongoing, Progressing Problem: Infection Goal: Absence of Infection Signs and Symptoms Outcome: Ongoing, Progressing * Procedures - Denise Jeffrey RN - 01/28/2025 3:56 PM EDTAssociated Order(s): Insert peripheral IV Insert peripheral IV Performed by: Denise Jeffrey RN Authorized by: Jeffery Devine DO Hand hygiene: Hand hygiene performed prior to insertion Inserted using aseptic techniques: Yes Preparation: Skin prepped with chg Orientation: Left, upper and anterior Location: Arm Catheter placed: Peripheral IV Catheter size: 20g/2.00in Line Technique: Ultrasound Guidance Number of attempts: 1 IV flushes: Without difficulty and positive blood return noted and IV luer locked Patient tolerance: Patient tolerated the procedure well and there were no complications Patient comfort measures used: Distraction and position of comfort IV site covered with: Transparent semipermeable dressing Education provided to: Patient * Progress Notes - Yeison Gallego MD - 01/28/2025 6:40 AM EDT Images from the original note were not included. [facility] Department of Surgery Section of Thoracic Surgery ICU Progress Note 01/28/25 Candido Rivera History of Present Illness Candido Rivera is a 54 y.o. female 3 Days Post-Op from a Estelita esophagectomy for end stage achalasia. Procedures this admission 01/25/25: Estelita Esophagectomy, j-tube replacement Events of last 24 hours Loose stools x5 overnight, c diff ordered. C diff PCR negative. Difficulty with lab draw, VAT consult. Otherwise, NAEON. Patient doing well this morning during rounds. Flushed NGT. AF, VSS, 1 L NC Drain 350 (20), NG 150 (300), J tube 50 (20) UOP 950 + 5 unmeasured voids (1645), Stool 5x WBC (9.91), Cr (0.71) CXR stable Relevant review of systems was obtained as able and is negative unless stated above in HPI. Physical Exam: Visit Vitals BP 103/73 (BP Location: Left arm, Patient Position: Sitting) Pulse 87 Temp 36.3 ??C (97.4 ??F) (Oral) Wt 75.2 kg (165 lb 12.6 oz) SpO2 93% BMI 29.38 kg/m?? GENERAL: WD, WN, NAD EYES: No scleral icterus or conjunctivitis HENT: Atraumatic, normocephalic, nares patent, mucus membranes moist. Left neck YOLI in place RESP/CHEST: symmetric chest rise, non-labored CARD: regular rate and rhythm GI: soft, non-distended. J-tube in place. SKIN: Surgical incision sites CDI. NEURO: AAOx4. Motor intact and no focal deficits PSYCH: Mood and affect congruent and appropriate to situation Intake/Output Summary (Last 24 hours) at 01/28/2025 1248 Last data filed at 01/28/2025 0000 Gross per 24 hour Intake 555 ml Output 650 ml Net -95 ml Lines/Drains/Tubes: Patient Lines/Drains/Airways Status Active Airway None Output by Drain (mL) 01/26/25 07 - 01/26/25 1859 01/26/25 1900 - 01/27/25 0659 01/27/25 0700 - 01/27/25 1859 01/27/25 1900 - 01/28/25 0659 01/28/25 0700 - 01/28/25 1248 Closed/Suction Drain Left;Superior;Medial Chest Bulb 5 15 320 30 Labs in last 18 hours: CBC WBC 9.14 Hb 10.4 (L) Plt 213 Hct 31.2 (L) ANC ?? INR ??, PTT ??, Anti-Xa ?? MCV 89 BMP Na 137 Cl 106 BUN 5 (L) Glu 454 (H) K 3.2 (L) Co2 19 (L) Cr 0.53 (L) Ca 7.8 (L) iCa ?? Mg 1.7 (L), Phos 2.3 (L) Lactate ?? LFT AST ?? AlkPhos ?? T Prot ?? ALK ?? Bili ?? Alb ?? D.Bili ?? Lab Trends: H/H Results from last 7 days Lab Units 01/28/25 0608 01/27/25 0442 01/27/25 0328 HEMOGLOBIN g/dL 10.4* 11.9 5.8* HEMATOCRIT % 31.2* 37.1 21.0* INR Cr Results from last 7 days Lab Units 01/28/25 0608 01/27/25 0440 01/26/25 0002 CREATININE mg/dL 0.53* 0.71 0.52* Medications reviewed. Vital signs reviewed. Labs reviewed. Radiography reviewed. CXR: stable aeration Assessment and Plan: Principal Problem: Achalasia Active Problems: Heartburn High cholesterol Depression Electrolyte abnormality Present on Admission: Achalasia Heartburn High cholesterol Depression Electrolyte abnormality Plan: - Okay for liquid meds via j-tube - No crushed or powdered meds via j-tube - Start trickle tube feeds via J-Tube - Strict NPO, NGT to LIS - Fluids: 75 ml/hr - Ppx: Enoxaparin 40 mg - OOB to chair and ambulate TID - Continue ICU care Yeison Gallego MD Thoracic Surgery Cosigned by Jade De Santiago MD at 01/30/2025 5:24 PM EDT Associated attestation - Jade De Santiago MD - 01/30/2025 5:24 PM EDT I saw and evaluated the patient with the resident/fellow. I discussed the case with the resident/fellow and agree with the findings and plan as documented. * Consults - Carol Melissa RN - 01/28/2025 6:13 AM EDTAssociated Order(s): IP CONSULT TO ADULT VASCULAR ACCESS TEAM Labs obtained using ultrasound guidance. Labeled and collected in Epic at bedside. Handed off to RN. Patient tolerated well, no complications such as bleeding or hematoma. Vein images sent to medicalrecord. Consult completed. * Care Plan - Duong Savage RN - 01/28/2025 12:34 AM EDT Problem: Adult Inpatient Plan of Care Goal: Plan of Care Review Outcome: Ongoing, Progressing Goal: Patient-Specific Goal (Individualized) Outcome: Ongoing, Progressing Goal: Absence of Hospital-Acquired Illness or Injury Outcome: Ongoing, Progressing Goal: Optimal Comfort and Wellbeing Outcome: Ongoing, Progressing Goal: Readiness for Transition of Care Outcome: Ongoing, Progressing Problem: Infection Goal: Absence of Infection Signs and Symptoms Outcome: Ongoing, Progressing * Progress Notes - Diamante Weber APRN - 01/27/2025 11:05 AM EDT Images from the original note were not included. [facility] Department of Surgery Section of Thoracic Surgery ICU Progress Note 01/27/25 Candido Rivera History of Present Illness Candido Rivera is a 54 y.o. female 2 Days Post-Op from a Estelita esophagectomy for end stage achalasia. Procedures this admission 01/25/25: Estelita Esophagectomy, j-tube replacement Events of last 24 hours NAEON. Some c/o sore throat. Pain better with liquid oxy. AF, VSS, [address] 190 (151), drain 20 (40), NG 320 (100), UOP 1645 (1720) WBC 9.91 (11.49), Cr 0.71 CXR stable Relevant review of systems was obtained as able and is negative unless stated above in HPI. Physical Exam: Visit Vitals BP 94/65 Pulse 66 Temp 36.6 ??C (97.8 ??F) (Oral) Wt 74 kg (163 lb 2.3 oz) SpO2 94% BMI 28.91 kg/m?? GENERAL: WD, WN, NAD EYES: No scleral icterus or conjunctivitis HENT: Atraumatic, normocephalic, nares patent, mucus membranes moist. Left neck YOLI in place RESP/CHEST: symmetric chest rise, non-labored CARD: regular rate and rhythm GI: soft, non-distended. J-tube in place. SKIN: Surgical incision sites CDI. NEURO: AAOx4. Motor intact and no focal deficits PSYCH: Mood and affect congruent and appropriate to situation Intake/Output Summary (Last 24 hours) at 01/27/2025 1106 Last data filed at 01/27/2025 0700 Gross per 24 hour Intake 2503.33 ml Output 202 ml Net 478.33 ml Lines/Drains/Tubes: Patient Lines/Drains/Airways Status Active Airway None Output by Drain (mL) 01/25/25 0700 - 01/25/25 18501/25/25 1900 - 01/26/25 0659 01/26/25 0700 - 01/26/25 1859 01/26/25 1900 - 01/27/25 0659 01/27/25 0700 - 01/27/25 1106 Closed/Suction Drain Left;Superior;Medial Chest Bulb 20 20 5 15 Labs in last 18 hours: CBC WBC 9.91 Hb 11.9 Plt 213 Hct 37.1 ANC ?? INR ??, PTT ??, Anti-Xa ?? MCV 91 BMP Na 139 Cl 107 BUN 7 Glu 124 (H) K 3.7 Co2 23 Cr 0.71 Ca 8.4 (L) iCa ?? Mg 1.8 (L), Phos 3.1 Lactate ?? LFT AST ?? AlkPhos ?? T Prot ?? ALK ?? Bili ?? Alb ?? D.Bili ?? Lab Trends: H/H Results from last 7 days Lab Units 01/27/25 0442 01/27/25 0328 01/26/25 0002 HEMOGLOBIN g/dL 11.9 5.8* 11.7 HEMATOCRIT % 37.1 21.0* 35.3 INR Cr Results from last 7 days Lab Units 01/27/25 0440 01/26/25 0002 01/25/25 1459 CREATININE mg/dL 0.71 0.52* 0.63 Medications reviewed. Vital signs reviewed. Labs reviewed. Radiography reviewed. CXR: stable aeration Assessment and Plan: Principal Problem: Achalasia Active Problems: Heartburn High cholesterol Depression Electrolyte abnormality Present on Admission: Achalasia Heartburn High cholesterol Depression Electrolyte abnormality Plan: - Okay for liquid meds via j-tube - No crushed or powdered meds via j-tube - Remove chest tube -- Follow up CXR@1415 - Strict NPO, NGT to LIS - Fluids: 75 ml/hr - Ppx: Enoxaparin 40 mg - OOB to chair and ambulate TID - Continue ICU care Diamante Weber APRN Thoracic Surgery * Consults - Opal Cantu RD - 01/26/2025 3:58 PM EDTAssociated Order(s): IP CONSULT TO NUTRITION SERVICES Adult Nutrition Evaluation Note Candido Rivera 54 y.o. female CSN: [id number] Room/Bed 236/236A Nutrition evaluation type: assessment Reason for evaluation: provider consult Hospital course: 54 y.o. female 1 Day Post-Op from a Estelita esophagectomy for end stage achalasia.Previous placement of j-tube. Past medical/ surgical history: has a past medical history of Allergies, Arthritis, Depression, Heartburn, and High cholesterol. Social history: Additional comments: 01/26: Pt not feeling well at time of visit (NFPE not completed). She confirms she was receiving Isosource 1.5 @ 65 mL/hr x 19 hrs + full liquid diet at home with good tolerance of nutrition regimen. She reports overall stable wt, with possible recent ~2# wt loss. Vitals and Basic Assessment: BP: 102/79 Temp: 36.7 ??C (98 ??F) Oxygen Therapy: Supplemental oxygen O2 Delivery Method: Nasal cannula Rai Coma Scale Score: 15 Nando Scale Score: 17 Sarbjit/Cubbin Pressure Risk Score: 39 Edema: Generalized Allergies: no food allergies listed Medications: acetaminophen, 1,000 mg, Intravenous, q6h SOURAV acetylcysteine, 4 mL, Nebulization, BID enoxaparin, 40 mg, Subcutaneous, Daily ipratropium-albuterol, 3 mL, Nebulization, q6h RT ketorolac, 15 mg, Intravenous, q6h SOURAV lidocaine, 2 patch, Apply externally, q24h SOURAV methocarbamol, 1,000 mg, Intravenous, q8h mupirocin, 1 Application, Each Nostril, BID pantoprazole, 40 mg, Intravenous, Daily dextrose 5 % and sodium chloride 0.45 %, 125 mL/hr, Last Rate: 125 mL/hr (01/26/25 1400) PRN medications: morphine OR morphine, oxyCODONE OR oxyCODONE Meds were reviewed: Yes Labs: Labs in last 18 hours CBC WBC 11.49 (H) Hb 11.7 Plt 260 Hct 35.3 ANC ?? INR ??, PTT ??, Anti-Xa ?? BMP Na 140 Cl 107 BUN 11 Glu 127 (H) K 4.8 Co2 22 Cr 0.52 (L) Ca 8.7 (L) iCa ?? Mg 2.1, Phos 3.5 Lactate ?? LFT AST ?? AlkPhos ?? T Prot ?? ALK ?? Bili ?? Alb ?? D.Bili ?? Anthropometrics: Weight: 74 kg (163 lb 2.3 oz) BMI (Calculated): 28.91 Weight Evaluation: Overweight (BMI 25-29.9) [place] Body Weight (kg): 52.3 Percent [place] Body Weight: 141 Adjusted Body Weight (kg): 57.7 Wt Readings from Last 10 Encounters: 01/26/25 74 kg (163 lb 2.3 oz) 01/19/25 74 kg (163 lb 2.3 oz) 01/10/25 74.5 kg (164 lb 3.9 oz) 01/06/25 74.5 kg (164 lb 3.9 oz) 09/22/24 77 kg (169 lb 12.1 oz) 08/18/24 76.3 kg (168 lb 3.4 oz) 07/26/24 76.4 kg (168 lb 6.9 oz) 04/15/24 75.1 kg (165 lb 9.1 oz) Estimated Needs: Kcal/ K-35 Kcal Provided: 6552-4845 Kcal Needs Based On: Adjusted weight Gm Protein/ Kg : 1.3-1.6 Protein Provided: 75-92 Protein Needs Based On: Adjusted weight Metabolic Cart Study Results: Current Nutrition Intake: Diet Order: NPO Diet Experience and Nutrition History: Diet Education Provided: Will monitor Pertinent home medications: Moravian needs: Nutrition Focused Physical Exam: Unable to Complete Exam: Patient unable to participate Physical exam performed on (date): Assessment of Malnutrition: Nutrition Problem: Inadequate oral intake related to esophagectomy as evidenced by need for EN support per j-tube. Status of Nutrition Diagnosis: New Nutrition Interventions and Recommendations: - TF recommendation: Isosource 1.5 with goal of 55 mL/hr (Provides x 22 hrs (1210 mL): 1815 kcal, 82 gm prot, 18 gm fiber, 920 mL H2O). - Fluid adjustment/FW per MD team. Nutrition Monitoring and Goals: - TF initiation - monitor elytes - monitor weight - complete NFPE Acuity Level: [address] * Progress Notes - Carlee Díaz RN - 01/26/2025 9:16 AM EDT Case Management Adult Initial Progress Note Candido Rivera 54 y.o. female CSN: [id number] Admission: 01/25/2025 5:44 AM Primary Problem: Achalasia Director Security Risk Management reviewed chart and spoke with the patient at bedside to complete this Initial Case Management Assessment. PCP: Rogerio Mays Emergency Contact: Extended Emergency Contact Information Primary Emergency Contact: Carlee Rivera Mobile Relation: Sister Spray Applicator needed? No Insurance: Primary Visit Coverage Payer Plan Sponsor Code Group Number Group Name AMANDA PATEL [facility] [id number] Primary Visit Coverage Subscriber Subscriber ID Subscriber Name Subscriber SSN Subscriber Address [id number] JOSECANDIDO Meena [id number] [place] [address] [place] [id number] Patient information: Primary Caregiver: Self Support System: Immediate family Daily Living Activities: Functional Status: Independent Living Arrangements: Children Type of Residence: Private residence [address] [place] [address] Smoker in the Home?: No Current DME: Equipment Currently Used at Home: colostomy/ostomy/enteral supplies Current DME Provider: Garry Income Information: Income/Expense Information: Income meets expenses Current Resources Utilized: None Housing Circumstances-Z Codes: Housing Circumstances (select all that apply): None Applicable Patient Referred to: Financial Resources: (n/a) Anticipated Discharge Date: tbd Patient's Discharge Goal: home Assistance Available at Discharge: Current Outpatient/Agency/Support Group: infusion therapy, home Availability of Care Givers (#Hours): 24 hours Discharge Transport: Transportation Anticipated: family or friend will provide Follow Up Transport: Transportation Needed to Follow up Appoinments: Family/Friend will Provide Home Health / Home Infusion / Outpatient Dialysis Services: Current DME Provider: Garry Living Will/Advance Directive/Power of Produce Shipper /Guardian: Have you reviewed your Advance Directive and is it valid for this stay?: Not applicable Advance Directive: Patient does not have advance directive Information Provided on Healthcare Directives: No Pre-existing DNR/DNI Order: No Patient Requests Assistance: No Additional Comments: RN JOSE MANUEL met with patient at bedside for initial assessment and discuss role in discharge planning. Confirmed address on file. Patient lives with her son in a single level home witha basement. Patient states she was independent prior to admit. Patient is current with Garry go TF. Denies any other DME/HH/HD/O2. PCP is Hood Mays. Patient has [employer] insurance and uses [facility] pharmacy in [place]. No CM/SW needs identified. Will continue to follow and assist. Carlee Díaz RN * Progress Notes - Di Deluca MD - 01/26/2025 6:31 AM EDT Images from the original note were not included. [facility] [facility] Department of Surgery Section of Thoracic Surgery ICU Progress Note 01/26/25 Cnadido Rivera History of Present Illness Candido Rivera is a 54 y.o. female 1 Day Post-Op from a Estelita esophagectomy for end stageachalasia. Procedures this admission 01/25/25: Estelita Esophagectomy Events of last 24 hours NAEO Patient reports she feels like she needs to cough due to a feeling like something is in her throat.Patient reports pain, 8/9 out of 10 but just received morphine. UOP 1,670 ml, CT 146 serosanguinous, chest bulb drain 10 ml serosanguinous, NG tube 100 ml out. -No BM and not passing gas yet. - HDS, afebrile, on 2 L NC Relevant review of systems was obtained as able and is negative unless stated above in HPI. Physical Exam: Visit Vitals BP 114/71 Pulse 69 Temp 37 ??C (98.6 ??F) (Axillary) Wt 74 kg (163 lb 2.3 oz) SpO2 96% BMI 28.91 kg/m?? GENERAL: WD, WN, NAD EYES: No scleral icterus or conjunctivitis HENT: Atraumatic, normocephalic, nares patent, mucus membranes moist. RESP/CHEST: CTA bilaterally. Chest bulb in place. CARD: regular rate and rhythm, normal S1 and S2, no murmur, rub, or gallop GI: soft, non-distended. J-tube in place. SKIN: Surgical incision sits CDI. NEURO: AAOx4. Motor intact and no focal deficits PSYCH: Mood and affect congruent and appropriate to situation Intake/Output Summary (Last 24 hours) at 01/26/2025 0727 Last data filed at 01/26/2025 0700 Gross per 24 hour Intake 3787.5 ml Output 2086 ml Net 1701.5 ml Lines/Drains/Tubes: Patient Lines/Drains/Airways Status Active Airway None Output by Drain (mL) 01/24/25 07 - 01/24/25 18501/24/25 190 - 01/25/25 0659 01/25/25 07 - 01/25/25 1859 01/25/25 190 - 01/26/25 0659 01/26/25 07 - 01/26/25 0727 Closed/Suction Drain Left;Superior;Medial Chest Bulb 20 20 0 Labs in last 18 hours: CBC WBC 11.49 (H) Hb 11.7 Plt 260 Hct 35.3 ANC ?? INR ??, PTT ??, Anti-Xa ?? MCV 88 BMP Na 140 Cl 107 BUN 11 Glu 127 (H) K 4.8 Co2 22 Cr 0.52 (L) Ca 8.7 (L) iCa 4.6 Mg 2.1, Phos 3.5 Lactate 2.6 (H) LFT AST ?? AlkPhos ?? T Prot ?? ALK ?? Bili ?? Alb ?? D.Bili ?? Lab Trends: H/H Results from last 7 days Lab Units 01/26/25 0002 01/25/25 1459 HEMOGLOBIN g/dL 11.7 12.2 HEMATOCRIT % 35.3 37.0 INR Cr Results from last 7 days Lab Units 01/26/25 0002 01/25/25 1459 CREATININE mg/dL 0.52* 0.63 Medications reviewed. Vital signs reviewed. Labs reviewed. Radiography reviewed. CXR: normal, stable, no pneumothorax Assessment and Plan: Principal Problem: Achalasia Present on Admission: Achalasia Plan: - Scheduled IV Tylenol, Toradol, IV Robaxin - CT to water seal, YOLI bulb to suction, daily CXR - Strict NPO, J tube to gravity, NGT to LIS - Can use J tube for meds if needed - D/c cabrera, strict I/Os - D/c arterial line - Fluids: 125 ml/hr; remove potassium from MIVF - Ppx: Enoxaparin 40 mg - OOB to chair and ambulate TID - Continue ICU care Anuj Sanchez M3 Thoracic Surgery Di Deluca MD Cosigned by Jeffery Devine DO at 01/26/2025 1:41 PM EDT Associated attestation - Jeffery Devine DO - 01/26/2025 1:41 PM EDT I saw and evaluated the patient with the resident/fellow. I discussed the case with the resident/fellow and agree with the findings and plan as documented. * Significant Event - Jimi Lawrence DO - 01/25/2025 5:11 PM EDT Images from the original note were not included. [facility] Department of Surgery Division of Thoracic Surgery Post Operative Check: Subjective: Procedure: Estelita Esophagectomy for Achalasia with Dr. Devine Patient current reports pain under control. Objective: Vitals: Vitals: 01/25/25 1700 BP: Pulse: 89 Resp: 15 Temp: SpO2: 94% Physical Exam: General: Drowsy, waking up, NAD EYES: No scleral icterus or conjunctivitis HENT: Atraumatic, normocephalic Neck: No JVD or tracheal deviation Cardiac: Hemodynamically Stable Pulmonary: No increased effort on 2LNC Abdomen: Soft, non-distended, appropriately tender, J tube in place to gravity with no drainage. CTwith about 70 ml total ss output on ws. YOLI drain in neck on suction with minimal ss output. Skin: No rashes Ext: No edema Neuro: No gross deficits Psych: Mood and affect congruent and appropriate to situation. Labs: WBC 14.72 (H) Hgb 12.2 PLT 260 HCT 37.0 INR ?? PTT ?? antiXa ?? Na 139 Cl 104 BUN 15 Gluc 156 (H) K 3.8 CO2 21 (L) Creat 0.63 Ca 8.7 (L) iCa 4.6 Mg 1.9 Phos 3.7 pH 7.34 (L) pCO2 44 pO2 75 (L) SPO2 95 FIO2 ?? HCO3 24 BE -2.1 (L) Lactate 2.6 (H) AST ?? AlkPhos ?? T Prot ?? ALT ?? Bili ?? Alb ?? D.Bili ?? Imaging: CXR appears well. Assessment and Plan: Candido Rivera is a 54 y.o. female who is recovering appropriately in the current post op period. Will continue to monitor. I have answered and addressed all issues and concerns from the patient and nursing staff. I have notified senior resident/attending aeronautical test engineer with any issues or concerns. Jimi Lawrence DO, PGY1 Thoracic Surgery * Op Note - Jeffery Devine DO - 01/25/2025 8:55 AM EDT Operative Note Date: 01/25/25 Location: [facility] OR Name: Candido Rivera, : 1970, Diagnoses: Pre-op Diagnosis End Stage Achalasia Post-op Diagnosis End Stage Achalasia Procedure(s): Bronch, EGD, Minimally Invasive Estelita esophagectomy, Lap J tube insertion Attending Surgeon(s): * Jeffery Devine - Primary Skates Operator(s): * Yeison Gallego MD - Resident - Assisting * Mary Chandra MD - Resident - Assisting Anesthesia: General ASA: III Blood Administration: Blood Product Administration History None Estimated Blood Loss: 25 mL Drains: Chest Tube Right Pleural 28 Fr (Active) Function To water seal 01/26/25 040 Chest Tube Air Leak No 01/26/25 040 Patency Intervention Tip/tilt 01/26/25 0000 Drainage Description Serosanguineous 01/26/25399 Dressing Status Clean;Intact;Dry 01/26/25399 Site Assessment Not assessed 01/26/25399 Surrounding Skin Unable to view 01/26/25399 Output (mL) 5 mL 01/26/25 0600 Closed/Suction Drain Left;Superior;Medial Chest Bulb (Active) Site Description Clean;Dry 01/26/25 040 Dressing Status Clean;Dry 01/26/25 040 Drainage Appearance Serosanguineous 01/26/25399 Status To bulb suction 01/26/25399 Output (mL) 0 mL 01/26/25 0600 NG/OG Ramsey Sump Nasogastric Right nostril (Active) Placement Verification X-ray 01/26/25399 Site Assessment Clean;Dry;Intact 01/26/25 040 Surrounding Skin Dry;Intact 01/26/25399 Secured by Commercial tube daley 01/26/25 0400 NG/OG Status Low intermittent suction 01/26/25 040 Drainage Appearance Brown 01/26/25 0400 NG/OG Interventions Low intermittant suction;Skin assessed 01/26/25399 Output (mL) 0 mL 01/26/25 0600 Gastrostomy/Enterostomy Jejunostomy 1 14 Fr. LUQ (Active) Surrounding Skin Dry;Intact 01/26/25 0400 Drain Status Open to gravity drainage 01/26/25 040 Site Description Clean;Dry 01/26/25 040 Dressing Status Clean;Dry;Intact 01/26/25399 Dressing Type Open to air 01/25/25 1600 Output (mL) 0 mL 01/26/25 0600 Urethral Catheter Temperature probe;Single lumen;Non-latex 16 Fr. (Active) Site Assessment Clean;Skin intact 01/26/25399 CAUTI: Collection Container Standard drainage bag;System closed;Collection container below bladder and tubing free of kinks 01/26/25399 CAUTI: Securement Method Securing device (Describe) 01/26/25399 CAUTI: Specimen Collection Port Covered with Alcohol Cap Yes 01/26/25399 CAUTI: Urinary Catheter Necessity Yes, meets criteria 01/26/25399 CAUTI: Urinary Catheter Necessity Reasons Q1-2 hourly urine output of critically ill patient 01/26/25 040 Output (mL) 50 mL 01/26/25 0600 Specimen: Specimens ID Source Frozen? 1 Esophagus No Description: portion of esophagus fresh for permanent 2 Esophagus No Description: esophagogastric anastomosis fresh for permanent 3 Esophagus No Description: esophagogastrectomy fresh for permanent Indications: Candido Rivera is an 54 y.o. female who is having surgery for Achalasia. She had previously underwent a Heller myotomy and naren fundoplication. Her symptoms progressed. Workup demonstrated a sigmoid esophagus and endoflip showed expected findings. The risks and benefits of surgery were discussed and the appropriate consents were signed. Procedure: Patient was brought to the operating room placed in the supine position general anesthesia was induced. Once anesthesia was induced a time-out was called and consent was confirmed on chart. Bronchoscopy was performed that showed normal airway anatomy and no evidence of endoluminal mass. A flexible EGD was passed through the oropharynx into the esophagus which was found to be dilated and patulous. It was sigmoidal in nature. The GE junction was patent the remainder of the stomach was within normal limits the stomach and esophagus were decompressed in the EGD was withdrawn. The patient was then placed in the left lateral decubitus position all pressure points were padded. The chestwas prepped and draped normal sterile fashion. At approximately the 8th interspace posterior axillary line a skin incision was made dissection was counted the chest using Bovie electrocautery an 11 mm trocar was inserted the thoracoscope was inserted through this and there was no evidence of trocarinjury. Additional trocars were placed posteriorly the auscultatory triangle as well as the 11-12 interspace. We also placed 2 anterior working ports. The lung was retracted anteriorly and the posterior pleura was opened overlying the esophagus from the level of the hiatus to the thoracic inlet. The azygous vein was circumferentially dissected and divided with a curved tip vascular stapler. The esophagus was then encircled with a Harken clamp and a Stratford drain was passed. The esophagus was mobilized from the thoracic inlet all the way to the hiatus. This was done with Harmonic scalpel. A Luis drain was then placed at the hiatus as well as the thoracic inlet to help with delivery into the abdomen as well as the chest. Hemostasis was assured and a 28 straight chest tube was placed posteriorly into the apex. A multilevel intercostal nerve block was placed under direct visualization. The lung was insufflated. Skin incisions were closed in usual fashion. We then turned our attention to the abdominal portion. The patient was placed supine the double-lumen endotracheal tube was exchanged for a single-lumen endotracheal tube toilet bronchoscopy showed no defect in the membranous airway scant secretions were suction. The abdomen chest and neck were prepped and draped normal sterile fashion approximately 1 fingerbreadth below the left costal margin a skin incision was made and Veress needle was inserted. Position was confirmed with aspiration as well as saline meniscus test. Pneumoperitoneum was insufflated to 15 mmHg. Once pneumoperitoneum was established an 11 mm trocar was placed in the upper abdomen to the patient's left of midline. The abdomen was inspected and there was no trocar injuries additional trocars were placed in the following locations 2-12 mm trocars were placed in the right upper quadrant a 5 mm left subcostal trocar as well as a right lower quadrant 11 mm trocar. The liver retractor was also placed through the epigastrium. This maneuver exposed the hiatus. We began our dissection at the level of the gastrohepatic ligament which was divided to the level of the right saira. The right saira was skeletonized this dissection was carried anteriorly over the anterior esophagus dividing the gastrophrenic ligament well on to the left saira. The previous naren fundoplication was taken down at this time. Once this was accomplished we turned our attention to the greater curvature which was mobilized with a Harmonic scalpel while protecting the gastroepiploic vessels. The duodenum was posteriorly Nikita eyes. The left gastric vessels were then skeletonized elevated and divided with a vascular stapler. We then turned our attention to the jejunostomy tube portion of the procedure. The previous J tube had been removed to prepthe abdomen as such under direct laparoscopic visualization a J tube was then placed and position confirmed. We then turned our attention back to the stomach information the gastric conduit. The stomach was approach to the level of the saira feet with a Endo-CURTIS stapler. The gastric conduit was then formed with sequential firings of the purple Endo-CURTIS stapler. The remnant stomach was then mobilized well into the mediastinum in the Stratford drain was delivered. The conduit was then tacked to thespecimen for delivery into the neck. We then turned our attention to the neck portion of the procedure a incision was made along the anterior border of the SCM. We carried dissection down bluntly to the prevertebral fascia. A blunt finger sweep was performed identifying the Stratford drain the Stratford drain was delivered into the neck as well as the esophagus stomach and conduit. The proximal esophagus was divided with a purple Endo-CURTIS stapler the specimen was test off the table and sent to pathology for evaluation. An NGT was passed under direct visualization. A stapled rogu-bm-tlwi anastomosis per was performed with sequential firings of the purple Endo-CURTIS stapler. Lembert sutures were placed over the staple line. The gastric conduit was then placed back into the superior mediastinum. A 10 flat Sarbjit-Drake drain was placed into the posterior mediastinum and extracorporeal lysed. The abdomen was reinsufflated and hemostasis was assured. The 11 and 12 mm trocars were closed with an 0 Vicryl laparoscopic suture Passer. Pneumoperitoneum was allowed to collapse. And all other trocars were removed under direct visualizati on. The cervical incision was then closed 1st by reapproximating the platysma us subcutaneous tissues and eventually skin. Patient tolerated the procedure well was taken to the ICU in stable condition. There were NO signs of surgical site infection (SSI) present at the time of surgery (PATOS). Complications: None; patient tolerated the procedure well. Submitted by: Jeffery Devine DO - 01/26/2025 * H&Heladio - Di Deluca MD - 01/25/2025 4:53 AM EDT Images from the original note were not included. [facility] Department of Surgery Section of Thoracic Surgery History & Physical Note History of Present Illness: Candido Rivera is a 54 y.o. female w/ PMHx GERD, End stage Achalasia s/p Heller myotomy and Naren fundoplication (2016) who presents today for elective esophagectomy. She was admitted on 01/09/2025 for elective Estelita Esophagectomy which was ultimately aborted d/t retained food in stomach now s/p EGD with laparoscopic J-tube placement on 01/09/[address] Devine. Did well post-operatively, and was advanced to goal TF through J-tube with clear liquid diet. She has been on FLD and TF since this time. She was seen in clinic on 01/19 and was re-scheduled for minimally invasive esophagectomy for today with Dr Devine. Patient seen in preoperative area. No changes or updates to health or surgical history since last seen in clinic. Past Medical History: Past Medical History: Diagnosis Date Allergies Arthritis Depression Heartburn High cholesterol Past Surgical History: Past Surgical History: Procedure Laterality Date APPENDECTOMY 2019 CARPAL TUNNEL RELEASE x 2 to Left and x 1 to Right DILATION AND CURETTAGE OF UTERUS HYSTERECTOMY 2015 MYOTOMY 2017 TUBAL LIGATION UPPER GASTROINTESTINAL ENDOSCOPY multiple Family Medical History: family history includes Arthritis in an other family member; Cancer in an other family member; Diabetes in an other family member; Heart Problem in an other family member; Heartburn in an other family member; Hyperlipidemia in an other family member; Lung cancer in her mother; immune disease in an other family member. Allergies: Allergies Allergen Reactions Codeine Vomiting, Nausea, Nausea And Vomiting and Other - please document in the comment field tremors Other reaction(s): GI Upset, Other: See Comments tremors Home Medications: No current facility-administered medications for this encounter. Current Outpatient Medications: acetaminophen (Tylenol) 500 MG tablet, Take 2 tablets by mouth every 6 hours as needed for pain., Disp: , Rfl: cetirizine (ZyrTEC) 10 MG tablet, Take 1 tablet by mouth daily as needed for allergies or rhinitis., Disp: , Rfl: escitalopram (Lexapro) 10 MG tablet, Take 1 tablet by mouth nightly., Disp: , Rfl: isosource 1.5 Pastor/mL liquid, 55 mL/hr by Per J Tube route continuously at 55 mL/hr. Equivalent Substitutions Allowed? Yes, Disp: 1 each, Rfl: 0 valACYclovir (Valtrex) 1 g tablet, Take 1 tablet by mouth 3 (three) times a day as needed (Flare ups). Take 1 tablet by mouth 3 times daily for 5 days as needed, Disp: , Rfl: Nutritional Supplements (isosource 1.5 Pastor/mL), 55 mL by Per J Tube route every 1 (one) hour., Disp: 91885 mL, Rfl: 5 Physical exam: There were no vitals taken for this visit. General: alert and oriented, appropriate Lungs: symmetric chest rise, no increased WOB Heart: RR Abdomen: soft NT/ND, normal bowel sounds Extremities: no peripheral edema Skin: no rash, no cyanosis and warm to touch Psychiatric: oriented to person/place/time and normal mood/affect Imaging: No new imaging. Additional testing: None Assessment and Plan: Candido Rivera is a 54 y.o. female with PMHx GERD, End stage Achalasia s/p Heller myotomy and Naren fundoplication (2017), recent aborted elective Estelita Esophagectomy d/t retained food, laparoscopic J-tube placement on 01/09/[address] Devine who presents today for elective minimally invasive [place] esophagectomy with Dr. Devine. Patient to OR today for minimally invasive Estelita esophagectomy with Dr. Devine. - H&P note at admission/most recent progress note reviewed and with no changes - The risks, benefits, indications, contraindications, and surgical alternatives were explained to the patient. Specifically, the risks of surgery, including bleeding, infection, injury to nearby organs or structures, need for additional surgery or procedures, wound complications, and complicationsof general anesthesia. Commonly associated risks of the procedure where also discussed with the patient in detail. The patient participated in the discussion and was given an opportunity to ask questions. - Written and informed consent is located in the patient's chart. - NPO since midnight Di Deluca MD 01/25/25 4:54 AM Cosigned by Jeffery Devine DO at 01/25/2025 1:15 PM EDT Associated attestation - Jeffery Devine, - 01/25/2025 1:15 PM EDT I saw and evaluated the patient with the resident/fellow. I discussed the case with the resident/fellow and agree with the findings and plan as documented. documented in this encounter Plan of Treatment Upcoming Encounters Date Type Department Care Team ([facility] st Contact Info) Description 08/31/2025 8:30 AM EST Appointment [facility] [address] [place] [address] 08/31/2025 9:30 AM EST Office Visit [facility] [address] [facility] [place] [address] Jeffery Devine, DO [address] [facility] [address] [place] [id number] Scheduled Referrals Name Type Priority Associated Diagnoses Order Schedule Discharge Ambulatory referral to NON [facility] Outpatient Referral Routine Achalasia 1 Occurrences starting 02/01/2025 until 08/03/2026 documented as of this encounter Goals Goal Patient Goal Type Associated Problems Recent Progress Patient-Stated? Author Autogenerat ed Goal Care Plan Autogenerated Problem No JohnsonLeticia Autogenerat ed Goal Care Plan Autogenerated Problem No JohnsonLeticia documented as of this encounter Procedures Procedure Name Priority Date/Time Associated Diagnosis Comments CBC W/O DIFFERENTIAL Routine 02/01/2025 9:57 AM EDT MAGNESIUM, PLASMA Routine 02/01/2025 9:5 7 AM EDT RENAL FUNCTION PANEL, PLASMA Routine 02/01/2025 9:57 AM EDT XR CHEST 1 VIEW Routine 02/01/2025 6:56 AM EDT POCT GLUCOSE METER UNSOLICITED RESULTS Routine 01/31/2025 11:58 PM EDT POCT GLUCOSE METER UNSOLICITED RESULTS Routine 01/31/2025 5:01 PM EDT POCT GLUCOSE METER UNSOLICITED RESULTS Routine 01/31/2025 12:01 PM EDT CBC W/O DIFFERENTIAL Routine 01/31/2025 10:50 AM EDT MAGNESIUM, PLASMA Routine 01/31/2025 10: 50 AM EDT RENAL FUNCTION PANEL, PLASMA Routine 01/31/2025 10:50 AM EDT OXYGEN THERAPY Routine 01/31/2025 8:00 AM EDT XR CHEST 1 VIEW Routine 01/31/2025 6:07 AM EDT POCT GLUCOSE METER UNSOLICITED RESULTS Routine 01/31/2025 5:28 AM EDT POCT GLUCOSE METER UNSOLICITED RESULTS Routine 01/30/2025 11:47 PM EDT OXYGEN THERAPY Routine 01/30/2025 8:00 PM EDT POCT GLUCOSE METER UNSOLICITED RESULTS Routine 01/30/2025 5:44 PM EDT POCT GLUCOSE METER UNSOLICITED RESULTS Routine 01/30/2025 12:06 PM EDT CBC W/O DIFFERENTIAL Routine 01/30/2025 10:22 AM EDT MAGNESIUM, PLASMA Routine 01/30/2025 10: 22 AM EDT RENAL FUNCTION PANEL, PLASMA Routine 01/30/2025 10:22 AM EDT FL BARIUM SWALLOW Routine 01/30/2025 10: 03 AM EDT OXYGEN THERAPY Routine 01/30/2025 8:00 AM EDT XR CHEST 1 VIEW Routine 01/30/2025 5:25 AM EDT OXYGEN THERAPY Routine 01/29/2025 8:00 PM EDT POCT GLUCOSE METER UNSOLICITED RESULTS Routine 01/29/2025 6:05 PM EDT POCT GLUCOSE METER UNSOLICITED RESULTS Routine 01/29/2025 11:17 AM EDT OXYGEN THERAPY Routine 01/29/2025 8:00 AM EDT XR CHEST 1 VIEW Routine 01/29/2025 6:08 AM EDT POCT GLUCOSE METER UNSOLICITED RESULTS Routine 01/29/2025 5:48 AM EDT CBC W/O DIFFERENTIAL Routine 01/29/2025 1:38 AM EDT MAGNESIUM, PLASMA Routine 01/29/2025 1:3 8 AM EDT RENAL FUNCTION PANEL, PLASMA Routine 01/29/2025 1:38 AM EDT POCT GLUCOSE METER UNSOLICITED RESULTS Routine 01/28/2025 11:18 PM EDT OXYGEN THERAPY Routine 01/28/2025 8:00 PM EDT POCT GLUCOSE METER UNSOLICITED RESULTS Routine 01/28/2025 6:13 PM EDT INSERT PERIPHERAL IV Routine 01/28/2025 3:56 PM EDT POCT GLUCOSE METER UNSOLICITED RESULTS Routine 01/28/2025 11:17 AM EDT POCT GLUCOSE METER UNSOLICITED RESULTS Routine 01/28/2025 8:31 AM EDT OXYGEN THERAPY Routine 01/28/2025 8:00 AM EDT CBC W/O DIFFERENTIAL Routine 01/28/2025 6:08 AM EDT MAGNESIUM, PLASMA Routine 01/28/2025 6:0 8 AM EDT RENAL FUNCTION PANEL, PLASMA Routine 01/28/2025 6:08 AM EDT POCT GLUCOSE METER UNSOLICITED RESULTS Routine 01/28/2025 5:31 AM EDT XR CHEST 1 VIEW Routine 01/28/2025 4:42 AM EDT CLOSTRIDIODES (CLOSTRIDIUM) DIFFICILE,PCR Routine 01/27/2025 10:40 PM EDT OXYGEN THERAPY Routine 01/27/2025 8:00 PM EDT POCT GLUCOSE METER UNSOLICITED RESULTS Routine 01/27/2025 6:57 PM EDT XR CHEST 1 VIEW Timed 01/27/2025 2:17 PM EDT POCT GLUCOSE METER UNSOLICITED RESULTS Routine 01/27/2025 1:56 PM EDT POCT GLUCOSE METER UNSOLICITED RESULTS Routine 01/27/2025 12:45 PM EDT OXYGEN THERAPY Routine 01/27/2025 8:00 AM EDT CBC W/O DIFFERENTIAL Routine 01/27/2025 4:42 AM EDT MAGNESIUM, PLASMA Routine 01/27/2025 4:4 0 AM EDT RENAL FUNCTION PANEL, PLASMA Routine 01/27/2025 4:40 AM EDT CBC W/O DIFFERENTIAL Routine 01/27/2025 3:28 AM EDT XR CHEST 1 VIEW Routine 01/27/2025 3:00 AM EDT POCT GLUCOSE METER UNSOLICITED RESULTS Routine 01/27/2025 1:21 AM EDT OXYGEN THERAPY Routine 01/26/2025 8:00 PM EDT POCT GLUCOSE METER UNSOLICITED RESULTS Routine 01/26/2025 7:23 PM EDT OXYGEN THERAPY Routine 01/26/2025 8:00 AM EDT POCT GLUCOSE METER UNSOLICITED RESULTS Routine 01/26/2025 6:25 AM EDT XR CHEST 1 VIEW Routine 01/26/2025 2:36 AM EDT CBC W/O DIFFERENTIAL Routine 01/26/2025 12:02 AM EDT MAGNESIUM, PLASMA Routine 01/26/2025 12: 02 AM EDT RENAL FUNCTION PANEL, PLASMA Routine 01/26/2025 12:02 AM EDT OXYGEN THERAPY Routine 01/25/2025 8:00 PM EDT XR CHEST 1 VIEW STAT 01/25/2025 3:17 PM EDT LEXIS AURIS SURVEILLANCE BY PCR Routine 01/25/2025 3:02 PM EDT MULTI DRUG RESISTANCE TEST Routine 01/25/2025 3:02 PM EDT CBC W/O DIFFERENTIAL STAT 01/25/2025 2:59 PM EDT MAGNESIUM, PLASMA STAT 01/25/2025 2:5 9 PM EDT BLOOD GAS PANEL, ARTERIAL STAT 01/25/2025 2:59 PM EDT RENAL FUNCTION PANEL, PLASMA STAT 01/25/2025 2:59 PM EDT OXYGEN THERAPY Routine 01/25/2025 2:38 PM EDT OXYGEN THERAPY Routine 01/25/2025 2:38 PM EDT OXYGEN THERAPY Routine 01/25/2025 2:38 PM EDT SURGICAL PATHOLOGY EXAM Routine 01/25/2025 12:18 PM EDT Achalasia MD ESOPHAGECTOMY DISTAL 2/3 W/LAPAROSCOPIC MOBLJ 01/25/2025 7:50 AM EDT Achalasia TYPE AND SCREEN Routine 01/25/2025 7:45 AM EDT documented in this encounter Results * XR Chest 2 Views (02/14/2025 11:32 AM EDT) Anatomical Region Laterality Modality Chest Digital Radiogra phy Impressions 02/14/2025 1:36 PM EDT Improved aeration with decreased bibasilar atelectasis. CRITICAL RESULT: No. COMMUNICATION: Per this written report. Preliminary report signed by Lukas Card MD on 02/14/2025 1:23 PM By electronically signing this report, I, the attending physician, attest that I have personally reviewed the images/data for the above examination(s) and agree with the final edited report. Drafted by Lukas Card MD on 02/14/2025 1:22 PM Final report signed by Obdulio Bertrand MD on 02/14/2025 1:36 PM Narrative 02/14/2025 1:36 PM EDT CLINICAL INDICATION: post operative visit TECHNIQUE: XR CHEST 2 VIEWS COMPARISON: 02/01/2025 FINDINGS: Stable cardiac silhouette and mediastinal contours. Decreased bibasilar atelectasis. No consolidation. No pleural effusion or pneumothorax. Procedure Note Obdulio Bertrand MD - 02/14/2025 CLINICAL INDICATION: post operative visit TECHNIQUE: XR CHEST 2 VIEWS COMPARISON: 02/01/2025 FINDINGS: Stable cardiac silhouette and mediastinal contours. Decreased bibasilaratelectasis. No consolidation. No pleural effusion or pneumothorax. IMPRESSION: Improved aeration with decreased bibasilar atelectasis. CRITICAL RESULT: No. COMMUNICATION: Per this written report. Preliminary report signed by Lukas Card MD on 02/14/2025 1:23 PM By electronically signing this report, I, the attending physician, attestthat I have personally reviewed the images/data for the aboveexamination(s) and agree with the final edited report. Drafted by Lukas Card MD on 02/14/2025 1:22 PM Final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 result obtained from a capillary whole blood specimen relies upon adequate, non-compromised capillary blood flow. If the capillary glucose result is not consistent with the patient's clinical signs and symptoms, glucose testing should be repeated with either an arterial or venous sample on the glucometer or sent to the main labortory for testing. Comment 01/29/2025 11:18 AM EDT [facility] Accelerator Technician ID Lian Rene 025 11:18 AM EDT [facility] Device ID [id number] 01/29/2025 11:18 AM EDT [facility] Specimen Type POC Capillary 01/29/2025 11:18 AM EDT [facility] Blood Capillary blood specimen / Unknown 01/29/2025 11:17 AM EDT 01/29/2025 11:18 AM EDT us Jeffery Devine DO LAB POINT OF CARE TE ST DOCKED DEVICE UNSOLICITED RESULTS Final Result Performing Organization Address [facility] de Phone Number [facility] [address] [place] [address] * XR Chest 1 View (01/29/2025 6:08 AM EDT) Anatomical Region Laterality Modality Chest Digital Radiogra phy Impressions 01/29/2025 10:43 AM EDT No significant interval change. CRITICAL RESULT: No. COMMUNICATION: Per this written report. By electronically signing this report, I, the attending physician, attest that I have personally reviewed the images/data for the above examination(s) and agree with the final edited report. Drafted by Jimbo Meeks MD on 01/29/2025 10:27 AM Final report signed by Rogerio Tavera MD on 01/29/2025 10:43 AM Narrative 01/29/2025 10:43 AM EDT CLINICAL INDICATION: PostOp Esophagectomy TECHNIQUE: XR CHEST 1 VIEW COMPARISON: 01/28/2025 FINDINGS: Superior mediastinal drain and enteric tube in unchanged position. Unchanged perihilar and basilar atelectasis and/or airspace disease. No pneumothorax. Procedure Note Rogerio Tavera MD - 01/29/2025 CLINICAL INDICATION: PostOp Esophagectomy TECHNIQUE: XR CHEST 1 VIEW COMPARISON: 01/28/2025 FINDINGS: Superior mediastinal drain and enteric tube in unchanged position.Unchanged perihilar and basilar atelectasis and/or airspace disease. Nopneumothorax. IMPRESSION: No significant interval change. CRITICAL RESULT: No. COMMUNICATION: Per this written report. By electronically signing this report, I, the attending physician, attestthat I have personally reviewed the images/data for the aboveexamination(s) and agree with the final edited report. Drafted by Jimbo Meeks MD on 01/29/2025 10:27 AM Final report signed by Rogerio Tavera MD on 01/29/2025 10:43 AM Jeffery Devine DO IMG XR PROCEDURES Final Resul t * (ABNORMAL) POCT glucose meter (01/29/2025 5:48 AM EDT) POCT Glucose 112(H) 74 - 99 mg/dL 01/29/2025 5:56 AM EDT [facility] Comment:Accuracy of a glucos e result obtained from a capillary whole blood specimen relies upon adequate, non-compromised capillary blood flow. If the capillary glucose result is not consistent with the patient's clinical signs and symptoms, glucose testing should be repeated with either an arterial or venous sample on the glucometer or sent to the main labortory for testing. Comment 01/29/2025 5:56 AM EDT [facility] Accelerator Technician ID Clementina Schuster 01/29/2025 5:56 AM EDT [facility] Device ID [id number] 01/29/2025 5:56 AM EDT [facility] Specimen Type POC Capillary 01/29/2025 5:56 AM EDT [facility] Blood Capillary blood specimen / Unknown 01/29/2025 5:48 AM EDT 01/29/2025 5:56 AM EDT us Jeffery Devine DO LAB POINT OF CARE TE ST DOCKED DEVICE UNSOLICITED RESULTS Final Result Performing Organization Address City/[facility]/ZIP Co de Phone Number [facility] [address] [place] [address] * Magnesium, Plasma (01/29/2025 1:38 AM EDT) Magnesium, Plasma 2.2 1.9 - 2.4 mg/dL 01/29/2025 2:14 AM EDT [facility] Blood Venous blood specimen / Unknown Venipuncture / Unknown 01/29/2025 1:38 AM EDT 01/29/2025 1:47 AM EDT us Jeffery Devine DO LAB BLOOD ORDERABLES Final Re sult [facility] [address] [place] [address] * (ABNORMAL) Renal Function Panel, Plasma (01/29/2025 1:38 AM EDT) Glucose, Plasma 120(H) 74 - 99 mg/dL 01/29/2025 2:14 AM EDT [facility] BUN, Plasma 5(L) 7 - 21 mg/dL 01/29/2025 2:14 AM EDT [facility] Creatinine, Plasma 0.53(L) 0.60 - 1.10 mg/dL 01/29/2025 2:14 AM EDT [facility] BUN/Creatinine Ratio 9 01/29/2025 2:14 AM EDT [facility] Sodium, Plasma 138 136 - 145 mmol/L 01/29/2025 2:14 AM EDT [facility] Potassium, Plasma 4.3 3.6 - 4.9 mmol/L 01/29/2025 2:14 AM EDT [facility] Chloride, Plasma 111(H) 97 - 107 mmol/L 01/29/2025 2:14 AM EDT [facility] CO2, Plasma 20(L) 22 - 29 mmol/L 01/29/2025 2:14 AM EDT [facility] Anion Gap 7 6 - 16 mmol/L 01/29/2025 2:14 AM EDT [facility] Total Calcium, Plasma 7.9(L) 8.9 - 10.2 mg/dL 01/29/2025 2:14 AM EDT [facility] Phosphorus, Plasma 3.1 2.5 - 4.5 mg/dL 01/29/2025 2:14 AM EDT [facility] Albumin, Plasma 3.1(L) 3.5 - 5.2 g/dL 01/29/2025 2:14 AM EDT [facility] eGFRcr 111.4 mL/min/1.7 3m*2 01/29/2025 2:14 AM EDT [facility] Comment:Reported eGFRcr in m L/min/1.73m2 is based the CKD-EPI 2020 equation that does not use a race coefficient. Blood Venous blood specimen / Unknown Venipuncture / Unknown 01/29/2025 1:38 AM EDT 01/29/2025 1:47 AM EDT Jeffery Devine DO LAB BLOOD ORDERABLES Final Re sult [facility] [address] [place] [address] * (ABNORMAL) CBC W/O Differential (01/29/2025 1:38 AM EDT) WBC Count 12.38(H) 3.70 - 10.30 10*3/uL LAB HEMATOLOGY METHOD 01/29/2025 1:54 AM EDT [facility] RBC Count 3.49(L) 3.90 - 5.20 10*6/uL LAB HEMATOLOGY METHOD 01/29/2025 1:54 AM EDT [facility] HGB 10.4(L) 11.2 - 15.7 g/dL LAB HEMATOLOGY METHOD 01/29/2025 1:54 AM EDT [facility] HCT 30.6(L) 34.0 - 45.0 % LAB HEMATOLOGY METHOD 01/29/2025 1:54 AM EDT [facility] Platelet Count 241 155 - 369 10*3/uL LAB HEMATOLOGY METHOD 01/29/2025 1:54 AM EDT [facility] MCV 88 79 - 98 fL LAB HEMATOLOGY METHOD 01/29/2025 1:54 AM EDT [facility] MCH 29.8 26.0 - 32.0 pg LAB HEMATOLOGY METHOD 01/29/2025 1:54 AM EDT [facility] MCHC 34.0 30.7 - 35.5 g/dL LAB HEMATOLOGY METHOD 01/29/2025 1:54 AM EDT [facility] RDW 14.2 11.5 - 14.5 % LAB HEMATOLOGY METHOD 01/29/2025 1:54 AM EDT [facility] MPV 10.4 8.8 - 12.5 fL LAB HEMATOLOGY METHOD 01/29/2025 1:54 AM EDT [facility] nRBC 0.0 <=0.0 per 100 WBCs LAB HEMATOLOGY METHOD 01/29/2025 1:54 AM EDT [facility] Blood Venous blood specimen / Unknown Venipuncture / Unknown 01/29/2025 1:38 AM EDT 01/29/2025 1:47 AM EDT us Jeffery Devine DO LAB BLOOD ORDERABLES Final Re sult [facility] [address] [place] [address] * (ABNORMAL) POCT glucose meter (01/28/2025 11:18 PM EDT) [facility] POCT Glucose 104(H) 74 - 99 mg/dL 01/28/2025 11:22 PM EDT [facility] Comment:Accuracy of a glucos e result obtained from a capillary whole blood specimen relies upon adequate, non-compromised capillary blood flow. If the capillary glucose result is not consistent with the patient's clinical signs and symptoms, glucose testing should be repeated with either an arterial or venous sample on the glucometer or sent to the main labortory for testing. Comment 01/28/2025 11:22 PM EDT [facility] Accelerator Technician ID Sudheer Neely 025 11:22 PM EDT [facility] Device ID [id number] 01/28/2025 11:22 PM EDT [facility] Specimen Type POC Capillary 01/28/2025 11:22 PM EDT [facility] Blood Capillary blood specimen / Unknown 01/28/2025 11:18 PM EDT 01/28/2025 11:22 PM EDT us Jeffery Devine DO LAB POINT OF CARE TE ST DOCKED DEVICE UNSOLICITED RESULTS Final Result Performing Organization Address [facility] Co de Phone Number [facility] [address] [place] [address] * (ABNORMAL) POCT glucose meter (01/28/2025 6:13 PM EDT) [facility] POCT Glucose 120(H) 74 - 99 mg/dL 01/28/2025 6:15 PM EDT [facility] Comment:Accuracy of a glucos e result obtained from a capillary whole blood specimen relies upon adequate, non-compromised capillary blood flow. If the capillary glucose result is not consistent with the patient's clinical signs and symptoms, glucose testing should be repeated with either an arterial or venous sample on the glucometer or sent to the main labortory for testing. Comment 01/28/2025 6:15 PM EDT [facility] Accelerator Technician ID Sophia Dickey 6:15 PM EDT [facility] Device ID [id number] 01/28/2025 6:15 PM EDT [facility] Specimen Type POC Capillary 01/28/2025 6:15 PM EDT [facility] Blood Capillary blood specimen / Unknown 01/28/2025 6:13 PM EDT 01/28/2025 6:15 PM EDT us Jeffery Devine DO LAB POINT OF CARE TE ST DOCKED DEVICE UNSOLICITED RESULTS Final Result Performing Organization Address City/[facility] Co de Phone Number [facility] [address] [place] [address] * PERIPHERAL IV (SMARTFORM LINK) (01/28/2025 3:56 PM EDT) Narrative Denise Jeffrey RN - 01/28/2025 3:56 PM EDT Denise Jeffrey RN 01/28/2025 3:57 PM Insert peripheral IV Performed by: Denise Jeffrey, RN Authorized by: Jeffery Devine DO Hand hygiene: Hand hygiene performed prior to insertion Inserted using aseptic techniques: Yes Preparation: Skin prepped with chg Orientation: Left, upper and anterior Location: Arm Catheter placed: Peripheral IV Catheter size: 20g/2.00in Line Technique: Ultrasound Guidance Number of attempts: 1 IV flushes: Without difficulty and positive blood return noted and IV luer locked Patient tolerance: Patient tolerated the procedure well and there were no complications Patient comfort measures used: Distraction and position of comfort IV site covered with: Transparent semipermeable dressing Education provided to: Patient us Jeffery Devine DO IV THERAPY ORDERABLES Final R esult * (ABNORMAL) POCT glucose meter (01/28/2025 11:17 AM EDT) [facility] POCT Glucose 131(H) 74 - 99 mg/dL 01/28/2025 11:28 AM EDT [facility] Comment:Accuracy of a glucos e result obtained from a capillary whole blood specimen relies upon adequate, non-compromised capillary blood flow. If the capillary glucose result is not consistent with the patient's clinical signs and symptoms, glucose testing should be repeated with either an arterial or venous sample on the glucometer or sent to the main labortory for testing. Comment 01/28/2025 11:28 AM EDT [facility] Accelerator Technician ID Sophia Dickey 11:28 AM EDT [facility] Device ID [id number] 01/28/2025 11:28 AM EDT [facility] Specimen Type POC Capillary 01/28/2025 11:28 AM EDT [facility] Blood Capillary blood specimen / Unknown 01/28/2025 11:17 AM EDT 01/28/2025 11:28 AM EDT us Jeffery Devine DO LAB POINT OF CARE TE ST DOCKED DEVICE UNSOLICITED RESULTS Final Result Performing Organization Address [facility] Co de Phone Number [facility] [address] [place] [address] * (ABNORMAL) POCT glucose meter (01/28/2025 8:31 AM EDT) [facility] POCT Glucose 101(H) 74 - 99 mg/dL 01/28/2025 8:33 AM EDT [facility] Comment:Accuracy of a glucos e result obtained from a capillary whole blood specimen relies upon adequate, non-compromised capillary blood flow. If the capillary glucose result is not consistent with the patient's clinical signs and symptoms, glucose testing should be repeated with either an arterial or venous sample on the glucometer or sent to the main labortory for testing. Comment 01/28/2025 8:33 AM EDT [facility] Accelerator Technician ID Sophia Dickey 8:33 AM EDT [facility] Device ID [id number] 01/28/2025 8:33 AM EDT [facility] Specimen Type POC Capillary 01/28/2025 8:33 AM EDT [facility] Blood Capillary blood specimen / Unknown 01/28/2025 8:31 AM EDT 01/28/2025 8:33 AM EDT us Jeffery Devine DO LAB POINT OF CARE TE ST DOCKED DEVICE UNSOLICITED RESULTS Final Result Performing Organization Address [facility] de Phone Number [facility] [address] [place] [address] * (ABNORMAL) Magnesium, Plasma (01/28/2025 6:08 AM EDT) [facility] Magnesium, Plasma 1.7(L) 1.9 - 2.4 mg/dL 01/28/2025 7:01 AM EDT [facility] Blood Venous blood specimen / Unknown Venipuncture / Unknown 01/28/2025 6:08 AM EDT 01/28/2025 6:32 AM EDT us Jeffery Devine DO LAB BLOOD ORDERABLES Final Re sult Performing Organization Address City/[facility]/ZIP Co de Phone Number [facility] [address] [place] [address] * (ABNORMAL) Renal Function Panel, Plasma (01/28/2025 6:08 AM EDT) Glucose, Plasma 454(H) 74 - 99 mg/dL 01/28/2025 7:01 AM EDT [facility] BUN, Plasma 5(L) 7 - 21 mg/dL 01/28/2025 7:01 AM EDT [facility] Creatinine, Plasma 0.53(L) 0.60 - 1.10 mg/dL 01/28/2025 7:01 AM EDT [facility] BUN/Creatinine Ratio 9 01/28/2025 7:01 AM EDT [facility] Sodium, Plasma 137 136 - 145 mmol/L 01/28/2025 7:01 AM EDT [facility] Potassium, Plasma 3.2(L) 3.6 - 4.9 mmol/L 01/28/2025 7:01 AM EDT [facility] Chloride, Plasma 106 97 - 107 mmol/L 01/28/2025 7:01 AM EDT [facility] CO2, Plasma 19(L) 22 - 29 mmol/L 01/28/2025 7:01 AM EDT [facility] Anion Gap 12 6 - 16 mmol/L 01/28/2025 7:01 AM EDT [facility] Total Calcium, Plasma 7.8(L) 8.9 - 10.2 mg/dL 01/28/2025 7:01 AM T [facility] Phosphorus, Plasma 2.3(L) 2.5 - 4.5 mg/dL 01/28/2025 7:01 AM EDT [facility] Albumin, Plasma 3.0(L) 3.5 - 5.2 g/dL 01/28/2025 7:01 AM EDT [facility] eGFRcr 111.4 mL/min/1.7 3m*2 01/28/2025 7:01 AM T [facility] Comment:Reported eGFRcr in m L/min/1.73m2 is based the CKD-EPI 2020 equation that does not use a race coefficient. Blood Venous blood specimen / Unknown Venipuncture / Unknown 01/28/2025 6:08 AM EDT 01/28/2025 6:32 AM EDT Jeffery Devine DO LAB BLOOD ORDERABLES Final Re sult [facility] [address] [place] [address] * (ABNORMAL) CBC W/O Differential (01/28/2025 6:08 AM EDT) WBC Count 9.14 3.70 - 10.30 10*3/uL LAB HEMATOLOGY METHOD 01/28/2025 6:44 AM EDT [facility] RBC Count 3.52(L) 3.90 - 5.20 10*6/uL LAB HEMATOLOGY METHOD 01/28/2025 6:44 AM EDT [facility] HGB 10.4(L) 11.2 - 15.7 g/dL LAB HEMATOLOGY METHOD 01/28/2025 6:44 AM EDT [facility] HCT 31.2(L) 34.0 - 45.0 % LAB HEMATOLOGY METHOD 01/28/2025 6:44 AM EDT [facility] Platelet Count 213 155 - 369 10*3/uL LAB HEMATOLOGY METHOD 01/28/2025 6:44 AM EDT [facility] MCV 89 79 - 98 fL LAB HEMATOLOGY METHOD 01/28/2025 6:44 AM EDT [facility] MCH 29.5 26.0 - 32.0 pg LAB HEMATOLOGY METHOD 01/28/2025 6:44 AM EDT [facility] MCHC 33.3 30.7 - 35.5 g/dL LAB HEMATOLOGY METHOD 01/28/2025 6:44 AM EDT [facility] RDW 14.0 11.5 - 14.5 % LAB HEMATOLOGY METHOD 01/28/2025 6:44 AM EDT [facility] MPV 10.8 8.8 - 12.5 fL LAB HEMATOLOGY METHOD 01/28/2025 6:44 AM EDT [facility] nRBC 0.0 <=0.0 per 100 WBCs LAB HEMATOLOGY METHOD 01/28/2025 6:44 AM EDT [facility] Blood Venous blood specimen / Unknown Venipuncture / Unknown 01/28/2025 6:08 AM EDT 01/28/2025 6:32 AM EDT us Jeffery Devine DO LAB BLOOD ORDERABLES Final Re sult Performing Organization Address [facility] Co de Phone Number [facility] [address] [place] [address] * (ABNORMAL) POCT glucose meter (01/28/2025 5:31 AM EDT) [facility] Signature POCT Glucose 104(H) 74 - 99 mg/dL 01/28/2025 5:32 AM EDT [facility] Comment:Accuracy of a glucos e result obtained from a capillary whole blood specimen relies upon adequate, non-compromised capillary blood flow. If the capillary glucose result is not consistent with the patient's clinical signs and symptoms, glucose testing should be repeated with either an arterial or venous sample on the glucometer or sent to the main labortory for testing. Comment 01/28/2025 5:32 AM EDT [facility] Accelerator Technician ID MichellekyClementina choudhury 01/28/2025 5:32 AM EDT [facility] Device ID [id number] 01/28/2025 5:32 AM EDT [facility] Specimen Type POC Capillary 01/28/2025 5:32 AM EDT [facility] Blood Capillary blood specimen / Unknown 01/28/2025 5:31 AM EDT 01/28/2025 5:32 AM EDT us Jeffery Devine DO LAB POINT OF CARE TE ST DOCKED DEVICE UNSOLICITED RESULTS Final Result Performing Organization Address City/[facility] Co de Phone Number [facility] [address] [place] [address] * XR Chest 1 View (01/28/2025 4:42 AM EDT) Anatomical Region Laterality Modality Chest Digital Radiogra phy Impressions 01/28/2025 6:40 AM EDT Stable exam. CRITICAL RESULT: No. COMMUNICATION: Per this written report Drafted by Rogerio Tavera MD on 01/28/2025 6:38 AM Final report signed by Rogerio Tavera MD on 01/28/2025 6:40 AM Narrative 01/28/2025 6:40 AM EDT CLINICAL INDICATION: PostOp Esophagectomy TECHNIQUE: XR CHEST 1 VIEW COMPARISON: 14 hours prior FINDINGS: Superior mediastinal drain in place. NG tube courses through the neoesophagus and into the upper abdomen. Basal atelectasis and/or airspace disease is similar. No pneumothorax. Procedure Note Rogerio Tavera MD - 01/28/2025 CLINICAL INDICATION: PostOp Esophagectomy TECHNIQUE: XR CHEST 1 VIEW COMPARISON: 14 hours prior FINDINGS: Superior mediastinal drain in place. NG tube courses through theneoesophagus and into the upper abdomen. Basal atelectasis and/or airspacedisease is similar. No pneumothorax. IMPRESSION: Stable exam. CRITICAL RESULT: No. COMMUNICATION: Per this written report Drafted by Rogerio Tavera MD on 01/28/2025 6:38 AM Final report signed by Rogerio Tavera MD on 01/28/2025 6:40 AM us Jeffery Devine DO IMG XR PROCEDURES Final Resul t * Clostridiodes (Clostridium) difficile PCR (01/27/2025 10:40 PM EDT) C difficile PCR toxin B gene DNA Result Not Detected Not Detected 01/28/2025 12:12 AM EDT [facility] Stool Rectum structure / Unknown Non-blood Collection / Unknown 01/27/2025 10:40 PM EDT 01/27/2025 11:04 PM EDT Narrative [facility] - 01/28/2025 12:12 AM EDT This test is FDA approved for use with liquid stool specimens. This test is used for clinical purposes. It should not be regarded as investigational or for research. This laboratory is certified under the Clinical Laboratory Improvement Amendments of 1988 (CLIA-88) as qualified to perform high complexity clinical laboratory testing. us Jeffery Devine DO LAB MICROBIOLOGY - GENERAL OR DERABLES Final Result [facility] [address] [place] [address] * (ABNORMAL) POCT glucose meter (01/27/2025 6:57 PM EDT) POCT Glucose 109(H) 74 - 99 mg/dL 01/27/2025 7:04 PM EDT [facility] Comment:Accuracy of a glucos e result obtained from a capillary whole blood specimen relies upon adequate, non-compromised capillary blood flow. If the capillary glucose result is not consistent with the patient's clinical signs and symptoms, glucose testing should be repeated with either an arterial or venous sample on the glucometer or sent to the main labortory for testing. Comment 01/27/2025 7:04 PM EDT [facility] Accelerator Technician ID Flori Bullard 01/27/2025 7:04 PM EDT [facility] Device ID [id number] 01/27/2025 7:04 PM EDT [facility] Specimen Type POC Capillary 01/27/2025 7:04 PM EDT [facility] Blood Capillary blood specimen / Unknown 01/27/2025 6:57 PM EDT 01/27/2025 7:04 PM EDT Jeffery Devine DO LAB POINT OF CARE TE ST DOCKED DEVICE UNSOLICITED RESULTS Final Result Performing Organization Address City/State/[facility] Co de Phone Number [facility] [address] [place], [place] [id number] * XR Chest 1 View (01/27/2025 2:17 PM EDT) Anatomical Region Laterality Modality Chest Digital Radiogra phy Impressions 01/27/2025 2:26 PM EDT Interval removal of right-sided chest tube. Otherwise stable exam CRITICAL RESULT: No. COMMUNICATION: Per this written report. By electronically signing this report, I, the attending physician, attest that I have personally reviewed the images/data for the above examination(s) and agree with the final edited report. Drafted by Shar Cabrera MD on 01/27/2025 2:21 PM Final report signed by Obdulio Bertrand MD on 01/27/2025 2:26 PM Narrative 01/27/2025 2:26 PM EDT CLINICAL INDICATION: chest tube removal TECHNIQUE: XR CHEST 1 VIEW COMPARISON: Same day chest radiograph performed 11 hours prior FINDINGS: Interval removal of right-sided chest tube. Stable appearance of enteric tube. Stable cardiomediastinal silhouette. Persistent bilateral basilar atelectasis. No pneumothorax or large pleural effusion. Procedure Note Obdulio Bertrand MD - 01/27/2025 CLINICAL INDICATION: chest tube removal TECHNIQUE: XR CHEST 1 VIEW COMPARISON: Same day chest radiograph performed 11 hours prior FINDINGS: Interval removal of right-sided chest tube. Stable appearance of enterictube. Stable cardiomediastinal silhouette. Persistent bilateral basilaratelectasis. No pneumothorax or large pleural effusion. IMPRESSION: Interval removal of right-sided chest tube. Otherwise stable exam CRITICAL RESULT: No. COMMUNICATION: Per this written report. By electronically signing this report, I, the attending physician, gabino I have personally reviewed the images/data for the aboveexamination(s) and agree with the final edited report. Drafted by Shar Cabrera MD on 01/27/2025 2:21 PM Final report signed by Obdulio Bertrand MD on 01/27/2025 2:26 PM Diamante Weber RN LIAISON IMG XR PROCEDURES Final Resul t * (ABNORMAL) POCT glucose meter (01/27/2025 1:56 PM EDT) POCT Glucose 116(H) 74 - 99 mg/dL 01/27/2025 2:21 PM EDT [facility] Comment:Accuracy of a glucos e result obtained from a capillary whole blood specimen relies upon adequate, non-compromised capillary blood flow. If the capillary glucose result is not consistent with the patient's clinical signs and symptoms, glucose testing should be repeated with either an arterial or venous sample on the glucometer or sent to the main labortory for testing. Comment 01/27/2025 2:21 PM EDT [facility] Accelerator Technician ID Juan MiguelYvettea 01/27/2025 2:21 PM EDT [facility] Device ID [id number] 01/27/2025 2:21 PM EDT [facility] Specimen Type POC Capillary 01/27/2025 2:21 PM EDT [facility] Blood Capillary blood specimen / Unknown 01/27/2025 1:56 PM EDT 01/27/2025 2:21 PM EDT us Jeffery Devine DO LAB POINT OF CARE TE ST DOCKED DEVICE UNSOLICITED RESULTS Final Result Performing Organization Address [facility] de Phone Number [facility] [address] [place] [address] * POCT glucose meter (01/27/2025 12:45 PM EDT) POCT Glucose 83 74 - 99 mg/dL 01/27/2025 1:02 PM EDT [facility] Comment:Accuracy of a glucos e result obtained from a capillary whole blood specimen relies upon adequate, non-compromised capillary blood flow. If the capillary glucose result is not consistent with the patient's clinical signs and symptoms, glucose testing should be repeated with either an arterial or venous sample on the glucometer or sent to the main labortory for testing. Comment 01/27/2025 1:02 PM EDT [facility] Accelerator Technician ID Flori Bullard 01/27/2025 1:02 PM EDT [facility] Device ID [id number] 01/27/2025 1:02 PM EDT [facility] Specimen Type POC Capillary 01/27/2025 1:02 PM EDT [facility] Blood Capillary blood specimen / Unknown 01/27/2025 12:45 PM EDT 01/27/2025 1:02 PM EDT us Jeffery Devine DO LAB POINT OF CARE TE ST DOCKED DEVICE UNSOLICITED RESULTS Final Result Performing Organization Address City/[facility] de Phone Number [facility] [address] [place] [address] * CBC W/O Differential (01/27/2025 4:42 AM EDT) WBC Count 9.91 3.70 - 10.30 10*3/uL LAB HEMATOLOGY METHOD 01/27/2025 5:04 AM EDT [facility] RBC Count 4.09 3.90 - 5.20 10*6/uL LAB HEMATOLOGY METHOD 01/27/2025 5:04 AM EDT [facility] HGB 11.9 11.2 - 15.7 g/dL LAB HEMATOLOGY METHOD 01/27/2025 5:04 AM EDT [facility] HCT 37.1 34.0 - 45.0 % LAB HEMATOLOGY METHOD 01/27/2025 5:04 AM EDT [facility] Platelet Count 213 155 - 369 10*3/uL LAB HEMATOLOGY METHOD 01/27/2025 5:04 AM EDT [facility] MCV 91 79 - 98 fL LAB HEMATOLOGY METHOD 01/27/2025 5:04 AM EDT [facility] Comment:Results inconsistent with previous lab findings. MCH 29.1 26.0 - 32.0 pg LAB HEMATOLOGY METHOD 01/27/2025 5:04 AM EDT [facility] MCHC 32.1 30.7 - 35.5 g/dL LAB HEMATOLOGY METHOD 01/27/2025 5:04 AM EDT [facility] RDW 14.1 11.5 - 14.5 % LAB HEMATOLOGY METHOD 01/27/2025 5:04 AM EDT [facility] MPV 10.6 8.8 - 12.5 fL LAB HEMATOLOGY METHOD 01/27/2025 5:04 AM EDT [facility] nRBC 0.0 <=0.0 per 100 WBCs LAB HEMATOLOGY METHOD 01/27/2025 5:04 AM EDT [facility] Blood Venous blood specimen / Unknown Venipuncture / Unknown 01/27/2025 4:42 AM EDT 01/27/2025 4:50 AM EDT us Jeffery Devine DO LAB BLOOD ORDERABLES Final Re sult [facility] [address] [place] [address] * (ABNORMAL) Magnesium, Plasma (01/27/2025 4:40 AM EDT) Magnesium, Plasma 1.8(L) 1.9 - 2.4 mg/dL 01/27/2025 5:19 AM EDT [facility] Blood Venous blood specimen / Unknown Venipuncture / Unknown 01/27/2025 4:40 AM EDT 01/27/2025 4:50 AM EDT us Jeffery Devine DO LAB BLOOD ORDERABLES Final Re sult [facility] [address] [place] [address] * (ABNORMAL) Renal Function Panel, Plasma (01/27/2025 4:40 AM EDT) Glucose, Plasma 124(H) 74 - 99 mg/dL 01/27/2025 5:19 AM EDT [facility] BUN, Plasma 7 7 - 21 mg/dL 01/27/2025 5:19 AM EDT [facility] Creatinine, Plasma 0.71 0.60 - 1.10 mg/dL 01/27/2025 5:19 AM EDT [facility] BUN/Creatinine Ratio 10 01/27/2025 5:19 AM EDT [facility] Sodium, Plasma 139 136 - 145 mmol/L 01/27/2025 5:19 AM EDT [facility] Potassium, Plasma 3.7 3.6 - 4.9 mmol/L 01/27/2025 5:19 AM EDT [facility] Chloride, Plasma 107 97 - 107 mmol/L 01/27/2025 5:19 AM EDT [facility] CO2, Plasma 23 22 - 29 mmol/L 01/27/2025 5:19 AM EDT [facility] Anion Gap 9 6 - 16 mmol/L 01/27/2025 5:19 AM EDT [facility] Total Calcium, Plasma 8.4(L) 8.9 - 10.2 mg/dL 01/27/2025 5:19 AM EDT [facility] Phosphorus, Plasma 3.1 2.5 - 4.5 mg/dL 01/27/2025 5:19 AM EDT [facility] Albumin, Plasma 3.4(L) 3.5 - 5.2 g/dL 01/27/2025 5:19 AM EDT [facility] eGFRcr 102.5 mL/min/1.7 3m*2 01/27/2025 5:19 AM EDT [facility] Comment:Reported eGFRcr in m L/min/1.73m2 is based the CKD-EPI 2020 equation that does not use a race coefficient. Blood Venous blood specimen / Unknown Venipuncture / Unknown 01/27/2025 4:40 AM EDT 01/27/2025 4:50 AM EDT us Jeffery Devine DO LAB BLOOD ORDERABLES Final Re sult [facility] [address] [place] [address] * (ABNORMAL) CBC W/O Differential (01/27/2025 3:28 AM EDT) WBC Count 5.41 3.70 - 10.30 10*3/uL LAB HEMATOLOGY METHOD 01/27/2025 4:01 AM EDT [facility] RBC Count 1.98(L) 3.90 - 5.20 10*6/uL LAB HEMATOLOGY METHOD 01/27/2025 4:01 AM EDT [facility] HGB 5.8(LL) 11.2 - 15.7 g/dL LAB HEMATOLOGY METHOD 01/27/2025 4:01 AM EDT [facility] HCT 21.0(L) 34.0 - 45.0 % LAB HEMATOLOGY METHOD 01/27/2025 4:01 AM EDT [facility] Platelet Count 119(L) 155 - 369 10*3/uL LAB HEMATOLOGY METHOD 01/27/2025 4:01 AM EDT [facility] MCV 106(H) 79 - 98 fL LAB HEMATOLOGY METHOD 01/27/2025 4:01 AM EDT [facility] Comment:Results inconsistent with previous lab findings. MCH 29.3 26.0 - 32.0 pg LAB HEMATOLOGY METHOD 01/27/2025 4:01 AM EDT [facility] MCHC 27.6(L) 30.7 - 35.5 g/dL LAB HEMATOLOGY METHOD 01/27/2025 4:01 AM EDT [facility] RDW 14.9(H) 11.5 - 14.5 % LAB HEMATOLOGY METHOD 01/27/2025 4:01 AM EDT [facility] MPV 10.9 8.8 - 12.5 fL LAB HEMATOLOGY METHOD 01/27/2025 4:01 AM EDT [facility] nRBC 0.0 <=0.0 per 100 WBCs LAB HEMATOLOGY METHOD 01/27/2025 4:01 AM EDT [facility] Blood Venous blood specimen / Unknown Venipuncture / Unknown 01/27/2025 3:28 AM EDT 01/27/2025 3:46 AM EDT us Jeffery Devine DO LAB BLOOD ORDERABLES Final Re sult [facility] [address] [place] [address] * XR Chest 1 View (01/27/2025 3:00 AM EDT) Anatomical Region Laterality Modality Chest Digital Radiogra phy Impressions 01/27/2025 9:17 AM EDT No significant interval changes. CRITICAL RESULT: No. COMMUNICATION: Per this written report. By electronically signing this report, I, the attending physician, attest that I have personally reviewed the images/data for the above examination(s) and agree with the final edited report. Drafted by Shar Cabrera MD on 01/27/2025 8:41 AM Final report signed by Obdulio Bertrand MD on 01/27/2025 9:17 AM Narrative 01/27/2025 9:17 AM EDT CLINICAL INDICATION: PostOp Esophagectomy TECHNIQUE: XR CHEST 1 VIEW COMPARISON: January 26, 2025 FINDINGS: Stable support hardware. Stable cardiomediastinal silhouette. Persistent right basilar atelectasis. No pneumothorax or large pleural effusion. Procedure Note Obdulio Bertrand MD - 01/27/2025 CLINICAL INDICATION: PostOp Esophagectomy TECHNIQUE: XR CHEST 1 VIEW COMPARISON: January 26, 2025 FINDINGS: Stable support hardware. Stable cardiomediastinal silhouette. Persistentright basilar atelectasis. No pneumothorax or large pleural effusion. IMPRESSION: No significant interval changes. CRITICAL RESULT: No. COMMUNICATION: Per this written report. By electronically signing this report, I, the attending physician, attestthat I have personally reviewed the images/data for the aboveexamination(s) and agree with the final edited report. Drafted by Shar Cabrera MD on 01/27/2025 8:41 AM Final report signed by Obdulio Bertrand MD on 01/27/2025 9:17 AM us Jeffery Devine DO IMG XR PROCEDURES Final Resul t * POCT glucose meter (01/27/2025 1:21 AM EDT) POCT Glucose 88 74 - 99 mg/dL 01/27/2025 1:24 AM EDT [facility] Comment:Accuracy of a glucos e result obtained from a capillary whole blood specimen relies upon adequate, non-compromised capillary blood flow. If the capillary glucose result is not consistent with the patient's clinical signs and symptoms, glucose testing should be repeated with either an arterial or venous sample on the glucometer or sent to the main labortory for testing. Comment 01/27/2025 1:24 AM EDT [facility] Accelerator Technician ID Lindsey Baer 01/27/2025 1:24 AM EDT [facility] Device ID [id number] 01/27/2025 1:24 AM EDT [facility] Specimen Type POC Capillary 01/27/2025 1:24 AM EDT [facility] Blood Capillary blood specimen / Unknown 01/27/2025 1:21 AM EDT 01/27/2025 1:24 AM EDT us Jeffery Devine DO LAB POINT OF CARE TE ST DOCKED DEVICE UNSOLICITED RESULTS Final Result Performing Organization Address City/State/[facility] Co de Phone Number [facility] [address] [place], [place] [phone] * POCT glucose meter (01/26/2025 7:23 PM EDT) POCT Glucose 94 74 - 99 mg/dL 01/26/2025 7:25 PM EDT [facility] Comment:Accuracy of a glucos e result obtained from a capillary whole blood specimen relies upon adequate, non-compromised capillary blood flow. If the capillary glucose result is not consistent with the patient's clinical signs and symptoms, glucose testing should be repeated with either an arterial or venous sample on the glucometer or sent to the main labortory for testing. Comment 01/26/2025 7:25 PM EDT [facility] Accelerator Technician ID Cecilia Castillo 01/27/20 7:25 PM EDT [facility] Device ID [id number] 01/26/2025 7:25 PM EDT [facility] Specimen Type POC Capillary 01/26/2025 7:25 PM EDT [facility] Blood Capillary blood specimen / Unknown 01/26/2025 7:23 PM EDT 01/26/2025 7:25 PM EDT us Jeffery Devine DO LAB POINT OF CARE TE ST DOCKED DEVICE UNSOLICITED RESULTS Final Result Performing Organization Address City/[facility]/ZIP Co de Phone Number [facility] [address] [place] [address] * POCT glucose meter (01/26/2025 6:25 AM EDT) [facility] POCT Glucose 97 74 - 99 mg/dL 01/26/2025 7:37 AM EDT [facility] Comment:Accuracy of a glucos e result obtained from a capillary whole blood specimen relies upon adequate, non-compromised capillary blood flow. If the capillary glucose result is not consistent with the patient's clinical signs and symptoms, glucose testing should be repeated with either an arterial or venous sample on the glucometer or sent to the main labortory for testing. Comment 01/26/2025 7:37 AM EDT [facility] Accelerator Technician ID Gracie Edmond 01/26/2025 7:37 AM EDT [facility] Device ID [id number] 01/26/2025 7:37 AM EDT [facility] Specimen Type POC Arterial 01/26/2025 7:37 AM EDT [facility] Blood Arterial blood specimen / Unknown 01/26/2025 6:25 AM EDT 01/26/2025 7:37 AM EDT us Jeffery Devine DO LAB POINT OF CARE TE ST DOCKED DEVICE UNSOLICITED RESULTS Final Result Performing Organization Address City/[facility]/ZIP Co de Phone Number [facility] [address] [place] [address] * XR Chest 1 View (01/26/2025 2:36 AM EDT) Anatomical Region Laterality Modality Chest Digital Radiogra phy Impressions 01/26/2025 9:14 AM EDT No significant interval changes. CRITICAL RESULT: No. COMMUNICATION: Per this written report. By electronically signing this report, I, the attending physician, attest that I have personally reviewed the images/data for the above examination(s) and agree with the final edited report. Drafted by Shar Cabrera MD on 01/26/2025 8:45 AM Final report signed by Obdulio Bertrand MD on 01/26/2025 9:14 AM Narrative 01/26/2025 9:14 AM EDT CLINICAL INDICATION: PostOp Esophagectomy TECHNIQUE: XR CHEST 1 VIEW COMPARISON: January 25, 2025 FINDINGS: Stable support hardware. Stable cardiac mediastinal silhouette. Persistent bibasilar opacities, greater on the right, likely atelectasis. No pneumothorax or large pleural effusion. Procedure Note Obdulio Bertrand MD - 01/26/2025 CLINICAL INDICATION: PostOp Esophagectomy TECHNIQUE: XR CHEST 1 VIEW COMPARISON: January 25, 2025 FINDINGS: Stable support hardware. Stable cardiac mediastinal silhouette. Persistentbibasilar opacities, greater on the right, likely atelectasis. Nopneumothorax or large pleural effusion. IMPRESSION: No significant interval changes. CRITICAL RESULT: No. COMMUNICATION: Per this written report. By electronically signing this report, I, the attending physician, attestthat I have personally reviewed the images/data for the aboveexamination(s) and agree with the final edited report. Drafted by Shar Cabrera MD on 01/26/2025 8:45 AM Final report signed by Obdulio Bertrand MD on 01/26/2025 9:14 AM Jeffery Devine DO IMG XR PROCEDURES Final Resul t * Magnesium, Plasma (01/26/2025 12:02 AM EDT) Magnesium, Plasma 2.1 1.9 - 2.4 mg/dL 01/26/2025 12:42 AM EDT [facility] Blood Venous blood specimen / Unknown Venipuncture / Unknown 01/26/2025 12:02 AM EDT 01/26/2025 12:06 AM EDT us Jeffery Devine DO LAB BLOOD ORDERABLES Final Re sult [facility] [address] [place] [address] * (ABNORMAL) Renal Function Panel, Plasma (01/26/2025 12:02 AM EDT) Glucose, Plasma 127(H) 74 - 99 mg/dL 01/26/2025 12:42 AM EDT [facility] BUN, Plasma 11 7 - 21 mg/dL 01/26/2025 12:42 AM EDT [facility] Creatinine, Plasma 0.52(L) 0.60 - 1.10 mg/dL 01/26/2025 12:42 AM EDT [facility] BUN/Creatinine Ratio 21 01/26/2025 12:42 AM EDT [facility] Sodium, Plasma 140 136 - 145 mmol/L 01/26/2025 12:42 AM EDT [facility] Potassium, Plasma 4.8 3.6 - 4.9 mmol/L 01/26/2025 12:42 AM EDT [facility] Chloride, Plasma 107 97 - 107 mmol/L 01/26/2025 12:42 AM EDT [facility] CO2, Plasma 22 22 - 29 mmol/L 01/26/2025 12:42 AM EDT [facility] Anion Gap 11 6 - 16 mmol/L 01/26/2025 12:42 AM EDT [facility] Total Calcium, Plasma 8.7(L) 8.9 - 10.2 mg/dL 01/26/2025 12:42 AM EDT [facility] Phosphorus, Plasma 3.5 2.5 - 4.5 mg/dL 01/26/2025 12:42 AM EDT [facility] Albumin, Plasma 3.7 3.5 - 5.2 g/dL 01/26/2025 12:42 AM EDT [facility] eGFRcr 111.9 mL/min/1.7 3m*2 01/26/2025 12:42 AM EDT [facility] Comment:Reported eGFRcr in m L/min/1.73m2 is based the CKD-EPI 2020 equation that does not use a race coefficient. Blood Venous blood specimen / Unknown Venipuncture / Unknown 01/26/2025 12:02 AM EDT 01/26/2025 12:06 AM EDT Jeffery Devine DO LAB BLOOD ORDERABLES Final Re sult [facility] [address] [place] [address] * (ABNORMAL) CBC W/O Differential (01/26/2025 12:02 AM EDT) WBC Count 11.49(H) 3.70 - 10.30 10*3/uL LAB HEMATOLOGY METHOD 01/26/2025 12:23 AM EDT [facility] RBC Count 4.03 3.90 - 5.20 10*6/uL LAB HEMATOLOGY METHOD 01/26/2025 12:23 AM EDT [facility] HGB 11.7 11.2 - 15.7 g/dL LAB HEMATOLOGY METHOD 01/26/2025 12:23 AM EDT [facility] HCT 35.3 34.0 - 45.0 % LAB HEMATOLOGY METHOD 01/26/2025 12:23 AM EDT [facility] Platelet Count 260 155 - 369 10*3/uL LAB HEMATOLOGY METHOD 01/26/2025 12:23 AM EDT [facility] MCV 88 79 - 98 fL LAB HEMATOLOGY METHOD 01/26/2025 12:23 AM EDT [facility] MCH 29.0 26.0 - 32.0 pg LAB HEMATOLOGY METHOD 01/26/2025 12:23 AM EDT [facility] MCHC 33.1 30.7 - 35.5 g/dL LAB HEMATOLOGY METHOD 01/26/2025 12:23 AM EDT [facility] RDW 13.4 11.5 - 14.5 % LAB HEMATOLOGY METHOD 01/26/2025 12:23 AM EDT [facility] MPV 10.7 8.8 - 12.5 fL LAB HEMATOLOGY METHOD 01/26/2025 12:23 AM EDT [facility] nRBC 0.0 <=0.0 per 100 WBCs LAB HEMATOLOGY METHOD 01/26/2025 12:23 AM EDT [facility] Blood Venous blood specimen / Unknown Venipuncture / Unknown 01/26/2025 12:02 AM EDT 01/26/2025 12:06 AM EDT Jeffery eDvine DO LAB BLOOD ORDERABLES Final Re sult [facility] [address] [place] [address] * XR Chest 1 View (01/25/2025 3:17 PM EDT) Anatomical Region Laterality Modality Chest Digital Radiogra phy Impressions 01/25/2025 3:41 PM EDT No pneumothorax. Perihilar and basilar opacities likely atelectasis. CRITICAL RESULT: No. COMMUNICATION: Per this written report. Drafted by Enedina Mendoza MD on 01/25/2025 3:39 PM Final report signed by Enedina Mendoza MD on 01/25/2025 3:41 PM Narrative 01/25/2025 3:41 PM EDT CLINICAL INDICATION: Post esophagectomy TECHNIQUE: XR CHEST 1 VIEW COMPARISON: January 09, 2025. FINDINGS: Nasogastric tube tip below the diaphragm with sidehole at the level of the diaphragmatic hiatus. Mediastinal drain. Right apically positioned chest tube. Perihilar and basilar opacities. No pneumothorax. Postsurgical mediastinum consistent with esophagectomy. Procedure Note Enedina Mendoza MD - 01/25/2025 CLINICAL INDICATION: Post esophagectomy TECHNIQUE: XR CHEST 1 VIEW COMPARISON: January 09, 2025. FINDINGS: Nasogastric tube tip below the diaphragm with sidehole at the level of thediaphragmatic hiatus. Mediastinal drain. Right apically positioned chesttube. Perihilar and basilar opacities. No pneumothorax. Postsurgicalmediastinum consistent with esophagectomy. IMPRESSION: No pneumothorax. Perihilar and basilar opacities likely atelectasis. CRITICAL RESULT: No. COMMUNICATION: Per this written report. Drafted by Enedina Mendoza MD on 01/25/2025 3:39 PM Final report signed by Enedina Mendoza MD on 01/25/2025 3:41 PM us Jeffery Devine DO IMG XR PROCEDURES Final Resul t * Lexis auris Surveillance by PCR (01/25/2025 3:02 PM EDT) Lexis auris PCR Result Not Detected Not Detected 01/26/2025 10:17 AM EDT [facility] Swab (Axilla and Groin) Non-blood Collection / Unknown 01/25/2025 3:02 PM EDT 01/25/2025 3:42 PM EDT Narrative [facility] - 01/26/2025 10:17 AM EDT This PCR assay was developed and its performance characteristics determined by [facility] as appropriate for clinical purposes. This assay has not been cleared or approved by the FDA, but is performed in a CLIA regulated laboratory that is qualified to perform high-complexity testing. us Jeffery Devine DO LAB MICROBIOLOGY - GENERAL OR DERABLES Final Result Performing Organization Address City/[facility]/ZIP Co de Phone Number [facility] [address] [place] [address] * Multi Drug Resistance Test (01/25/2025 3:02 PM EDT) Pathologist [facility] Culture No growth at day 1 01/26/2025 1:57 PM EDT [facility] Swab (Nares and Alexandra Rectal) Non-blood Collection / Unknown 01/25/2025 3:02 PM EDT 01/25/2025 3:42 PM EDT us Jeffery Devine DO LAB MICROBIOLOGY - GENERAL OR DERABLES Final Result Performing Organization Address City/[facility]/ZIP Co de Phone Number [facility] [address] [place] [address] * (ABNORMAL) CBC W/O Differential (01/25/2025 2:59 PM EDT) Pathologist [facility] WBC Count 14.72(H) 3.70 - 10.30 10*3/uL LAB HEMATOLOGY METHOD 01/25/2025 3:33 PM EDT [facility] RBC Count 4.25 3.90 - 5.20 10*6/uL LAB HEMATOLOGY METHOD 01/25/2025 3:33 PM EDT [facility] HGB 12.2 11.2 - 15.7 g/dL LAB HEMATOLOGY METHOD 01/25/2025 3:33 PM EDT [facility] HCT 37.0 34.0 - 45.0 % LAB HEMATOLOGY METHOD 01/25/2025 3:33 PM EDT [facility] Platelet Count 260 155 - 369 10*3/uL LAB HEMATOLOGY METHOD 01/25/2025 3:33 PM EDT [facility] MCV 87 79 - 98 fL LAB HEMATOLOGY METHOD 01/25/2025 3:33 PM EDT [facility] MCH 28.7 26.0 - 32.0 pg LAB HEMATOLOGY METHOD 01/25/2025 3:33 PM EDT [facility] MCHC 33.0 30.7 - 35.5 g/dL LAB HEMATOLOGY METHOD 01/25/2025 3:33 PM EDT [facility] RDW 13.4 11.5 - 14.5 % LAB HEMATOLOGY METHOD 01/25/2025 3:33 PM EDT [facility] MPV 10.5 8.8 - 12.5 fL LAB HEMATOLOGY METHOD 01/25/2025 3:33 PM EDT [facility] nRBC 0.0 <=0.0 per 100 WBCs LAB HEMATOLOGY METHOD 01/25/2025 3:33 PM EDT [facility] Blood Venous blood specimen / Unknown Venipuncture / Unknown 01/25/2025 2:59 PM EDT 01/25/2025 3:24 PM EDT us Diamante Weber RN LIAISON LAB BLOOD ORDERABLES Final Re sult [facility] [facility] [address] [place] [address] * (ABNORMAL) Blood gas panel, arterial (01/25/2025 2:59 PM EDT) pH, Arterial 7.34(L) 7.35 - 7.45 LAB HEMATOLOGY METHOD 01/25/2025 3:16 PM EDT [facility] pCO2, Arterial 44 35 - 48 mmHg LAB HEMATOLOGY METHOD 01/25/2025 3:16 PM EDT [facility] pO2, Arterial 75(L) 83 - 108 mmHg LAB HEMATOLOGY METHOD 01/25/2025 3:16 PM EDT [facility] SO2, Measured, Arterial 95 94 - 98 % LAB HEMATOLOGY METHOD 01/25/2025 3:16 PM EDT [facility] Base Excess, Arterial -2.1(L) -2.0 - 3.0 mmol/L LAB HEMATOLOGY METHOD 01/25/2025 3:16 PM EDT [facility] Bicarbonate, Calculated, Arterial 24 22 - 26 mmol/L LAB HEMATOLOGY METHOD 01/25/2025 3:16 PM EDT [facility] Hematocrit, Whole Blood 37.3 34.0 - 45.0 % LAB HEMATOLOGY METHOD 01/25/2025 3:16 PM EDT [facility] Sodium, Whole Blood 141 136 - 145 mmol/L LAB HEMATOLOGY METHOD 01/25/2025 3:16 PM EDT [facility] Potassium, Whole Blood 3.7 3.6 - 4.9 mmol/L LAB HEMATOLOGY METHOD 01/25/2025 3:16 PM EDT [facility] Chloride, Whole Blood 108(H) 97 - 107 mmol/L LAB HEMATOLOGY METHOD 01/25/2025 3:16 PM EDT [facility] Glucose, Whole Blood 152(H) 74 - 99 mg/dL LAB HEMATOLOGY METHOD 01/25/2025 3:16 PM EDT [facility] Ionized Calcium, Whole Blood 4.6 4.6 - 5.1 mg/dL LAB HEMATOLOGY METHOD 01/25/2025 3:16 PM EDT [facility] Lactate, Arterial, Whole Blood 2.6(H) 0.5 - 1.6 mmol/L LAB HEMATOLOGY METHOD 01/25/2025 3:16 PM EDT [facility] Blood Arterial blood specimen / Unknown Arterial Puncture / Unknown 01/25/2025 2:59 PM EDT 01/25/2025 3:13 PM EDT us Diamante Weber RN LIAISON LAB BLOOD ORDERABLES Final Re sult [facility] [address] [place] [address] * Magnesium, Plasma (01/25/2025 2:59 PM EDT) Magnesium, Plasma 1.9 1.9 - 2.4 mg/dL 01/25/2025 4:03 PM EDT [facility] Blood Venous blood specimen / Unknown Venipuncture / Unknown 01/25/2025 2:59 PM EDT 01/25/2025 3:22 PM EDT us Diamante Weber RN LIA[facility] LAB BLOOD ORDERABLES Final Re sult [facility] [address] [place] [address] * (ABNORMAL) Renal Function Panel, Plasma (01/25/2025 2:59 PM EDT) Glucose, Plasma 156(H) 74 - 99 mg/dL 01/25/2025 4:03 PM EDT [facility] BUN, Plasma 15 7 - 21 mg/dL 01/25/2025 4:03 PM EDT [facility] Creatinine, Plasma 0.63 0.60 - 1.10 mg/dL 01/25/2025 4:03 PM EDT [facility] BUN/Creatinine Ratio 24 01/25/2025 4:03 PM EDT [facility] Sodium, Plasma 139 136 - 145 mmol/L 01/25/2025 4:03 PM EDT [facility] Potassium, Plasma 3.8 3.6 - 4.9 mmol/L 01/25/2025 4:03 PM EDT [facility] Chloride, Plasma 104 97 - 107 mmol/L 01/25/2025 4:03 PM EDT [facility] CO2, Plasma 21(L) 22 - 29 mmol/L 01/25/2025 4:03 PM EDT [facility] Anion Gap 14 6 - 16 mmol/L 01/25/2025 4:03 PM EDT [facility] Total Calcium, Plasma 8.7(L) 8.9 - 10.2 mg/dL 01/25/2025 4:03 PM EDT [facility] Phosphorus, Plasma 3.7 2.5 - 4.5 mg/dL 01/25/2025 4:03 PM EDT [facility] Albumin, Plasma 3.8 3.5 - 5.2 g/dL 01/25/2025 4:03 PM EDT [facility] eGFRcr 106.9 mL/min/1.7 3m*2 01/25/2025 4:03 PM EDT [facility] Comment:Reported eGFRcr in m L/min/1.73m2 is based the CKD-EPI 2020 equation that does not use a race coefficient. Blood Venous blood specimen / Unknown Venipuncture / Unknown 01/25/2025 2:59 PM EDT 01/25/2025 3:22 PM EDT us Diamante Weber RN [facility]IA[facility] BLOOD ORDERABLES Final Re sult [facility] [address] [place] [address] * Surgical Pathology Exam (01/25/2025 12:18 PM EDT) Case Report Surgical Pathology Case: [id number] Authorizing Provider: Jeffery Devine DO Collected: 01/25/2025 1218 Ordering Location: [facility] Received: 01/25/2025 1326 Pathologist: Harshil Banks MD Specimens: A) - Esophagus, portion of esophagus fresh for permanent B) - Esophagus, esophagogastric anastomosis fresh for permanent C) - Esophagus, esophagogastrectom y fresh for permanent 5 12:28 PM EDT [facility] Final Diagnosis A. ESOPHAGUS, EXCISION: - PORTION OF ESOPHAGUS WITH CHRONIC INFLAMMATION AND SUBMUCOSAL FIBROSIS B. DESIGNATED ESOPHAGOGASTRIC ANASTOMOSIS, EXCISION: - PORTION OF ESOPHAGOGASTRIC JUNCTION WITH CHRONIC INFLAMMATION AND SUBMUCOSAL FIBROSIS C. ESOPHAGUS AND PROXIMAL STOMACH, , ESOPHAGOGASTRECTOM Y: - DISTAL ESOPHAGEAL MURAL FIBROSIS AND PATCHY LYMPHOCYTIC GANGLIONITIS (CLINICAL HISTORY OF END-STAGE ACHALASIA) - PORTION OF PROXIMAL STOMACH WITH NO SIGNIFICANT PATHOLOGIC ABNORMALITY - BENIGN LYMPH NODES (7) 5 12:28 PM EDT [facility] at 1228 EDT Clinical Information Achalasia 01/11 12:28 PM EDT [facility] Special and Immunohistochemical Stains Special Stain: [id number] Mike Trichrome Stain IHC: There are no tasks to display for the given criteria. All controls show appropriate reactivity. All immunohistochemist ry, in situ hybridization, and histochemical tests were developed by and are performed at the [facility], [address] [place] [address]. All tests reported here, except those addressing HER2 (breast) and PD-L1 expression as predictive markers, have not been cleared by or approved by the US Food and Drug Administration (FDA). The FDA has determined that such clearance or approval is not necessary. The laboratory is regulated under CLIA as qualified to perform high-complexity testing. The tests are used for clinical purposes. They should not be regarded as investigational or for research. This assay has not been validated on decalcified tissues. Results should be interpreted with caution given the likelihood of false negativity on decalcified specimens. 12:28 PM EDT [facility] Gross Description A. PORTION OF ESOPHAGUS FRESH FOR PERMANENT The specimens received fresh, placed in formalin labeled p ortion of esophagus and consists of a a 3.5 x 0.3 x 0.2 cm teague-pink segment of stapled esophagus with scantly attached esophageal tissue. The chiqui are excised and front office representative sections are submitted in cassette A1. Cold Time: 1h 08m B. ESOPHAGOGASTRIC ANASTOMOSIS FRESH FOR PERMANENT The specimens received fresh, placed in formalin labeled e sophagogastric anastomosis and consists of a 3.5 x 1.5 x 1.2 cm teague-pink fragment of esophagogastric anastomosis. The serosal surface is teague-pink, grossly unremarkable, inked blue. The 5.6 cm stapled line is excised to reveal teague-pink, grossly unremarkable mucosal surface. [employer] sections are submitted in cassette B1. Cold Time: 1h 01m Angeles Barreto MD C. ESOPHAGOGASTRECTOM Y FRESH FOR PERMANENT The specimens received fresh, placed and consists a esophagus measuring 4.3 cm length by 2.5-3.5 cm in diameter, attached to a stomach measuring 9.1 x 3.4 x 3.3 cm. Th esophageal serosa is teague-pink and smooth. The gastric serosa is teague-pink, ragged with with attached fibroadipose tissue measuring 2.5 cm in length. The esophageal adventitia is inked black, gastric serosa inked blue. The specimen is opened to reveal a teague-pink, gritty esophageal mucosa with a mildly thickened esophageal mucosa at the GE junction (0.3-0.4 cm). The GE junction measures 2.6 cm in diameter and is 7.5 cm from the proximal esophageal margin, 6.5 cm from the distal stapled stomach margin. A 2.1 x 1.6 x 0.7 cm distal esophageal outpouching is identified that is 0.6 cm from the GE junction, 6.5 cm from proximal margin, 2.5 cm from nearest gastric stapled margin. The 11.2 cm gastric staple are removed, and the stomach is opened to reveal teague-brown gastric mucosa with appropriate rugal folds. Sectioning the esophagus (including the area of outpouching) reveals teague-white, grossly unremarkable cut surface with a 0.3 cm esophageal wall. Sectioning the stomach reveals teague-brown, grossly unremarkable cut surface. No masses or lesions are grossly identified. Gross photographs have been taken. [employer] sections are submitted as follows: C1: Esophageal margin, en face C2: Gastric stapled margin, en face C3: Nearest mesenteric margin to outpouching C4: Esophageal outpouching, full-thickness C5: Proximal esophagus C6: Mid esophagus C7: Distal esophagus, with additional outpouching mucosa C8-C9: GE junction C10-C11: GE junction with mild esophageal thickening, bisected C12-C13: GE junction with mild esophageal thickening, bisected C14: GE Junction, uninvolved C15: Proximal stomach C16: Distal stomach C17: 8 lymph nodes, entirely submitted C18: 5 lymph nodes, entirely submitted Cold Time: 56m Angeles Barreto MD 12:28 PM EDT [facility] Note: A resident was involved in the service. I attest I examined the relevant preparations for the specimens and confirmed the diagnosis or interpretation. 12:28 PM EDT [facility] Tissue Esophageal structure / Unknown 01/25/2025 12:18 PM EDT 01/25/2025 1:26 PM EDT Comment:Pre-op diagnosis: Achalasia Tissue specimen (specimen) Esophageal structure / Unknown 01/25/2025 12:25 PM EDT 01/25/2025 1:26 PM EDT Comment:Pre-op diagnosis: Achalasia Tissue specimen (specimen) Esophageal structure / Unknown 01/25/2025 12:30 PM EDT 01/25/2025 1:26 PM EDT Comment:Pre-op diagnosis: Achalasia Jeffery Devine DO LAB PATHOLOGY ORDERABLES Prudence l Result Performing Organization Address City/[facility] Co de Phone Number [facility] [address] [place] [address] * Type and screen (01/25/2025 7:45 AM EDT) ABO/Rh A Positive 01/25/2025 6:17 AM EDT [facility] Antibody Screen Negative 01/25/2025 6:17 AM EDT [facility] Specimen Expiration 01/28/2025 23:59 01/25/2025 6:17 AM EDT [facility]LO[facility] Blood Venous blood specimen / Unknown Venipuncture / Unknown 01/25/2025 7:45 AM EDT 01/25/2025 8:01 AM EDT Vickey Steel MD LAB BLOOD BANK TEST ORDERABL ES Final Result Performing Organization Address [facility] de Phone Number BLOOD BANK [address] documented in this encounter Visit Diagnoses Diagnosis Achalasia- Primary Achalasia and cardiospasm Heartburn High cholesterol Pure hypercholesterolemia Depression Depressive disorder, not elsewhere classified Electrolyte abnormality Electrolyte and fluid disorders not elsewhere classified Achalasia Achalasia and cardiospasm documented in this encounter Admitting Diagnoses Diagnosis Achalasia Achalasia and cardiospasm documented in this encounter Administered Medications Inactive Administered Medications - up to 3 most recent administrations Medication Order MAR Action Action Date Dose Rate Site acetaminophen (Ofirmev) injection 1,000 mg 1,000 mg, Intravenous, Every 6 hours scheduled, 8 doses, First dose on Thu01/25/25 at 1530, Last dose on Thu01/27/25 at 1200, RoutineIndications:Pain New Bag 01/27/2025 5:09 AM EDT 1,000 mg 400 mL/ hr New Bag 01/26/2025 11:00 PM EDT 1,000 mg 400 mL/hr New Bag 01/26/2025 5:48 PM EDT 1,000 mg 400 mL/hr acetaminophen (Tylenol) 160 MG/5ML solution 960 mg 960 mg, Per J Tube, Every 6 hours scheduled, First dose on Thu01/27/25 at 1200, Until Discontinued, Routine Given 01/28/2025 5:37 AM EDT 960 mg Given 01/27/2025 6:40 PM EDT 960 mg Given 01/27/2025 12:32 PM EDT 960 mg acetaminophen (Tylenol) 160 MG/5ML solution 960 mg 960 mg, Per J Tube, Every 6 hours PRN, Starting on Thu01/30/25 at 0705, Until Thu02/01/25 at 1638, Routine, mild pain (1-3 on the numeric pain scale) Given 01/31/2025 7:55 PM EDT 960 mg acetylcysteine (Mucomyst) 20 % solution 4 mL 4 mL, Nebulization, 2 times daily, First dose on Thu01/26/25 at 1330, Until Discontinued, Routine Given 01/31/2025 8:24 PM EDT 4 mL Given 01/31/2025 8:28 AM EDT 4 mL Given 01/30/2025 8:53 PM EDT 4 mL dextrose 5 % and sodium chloride 0.45 % infusion 125 mL/hr, Intravenous, Continuous, Starting on Thu01/26/25 at 0845, Until Thu01/27/25 at 0817, Routine Rate/Dose Verify 01/27/2025 7:00 AM EDT 125 mL/hr 125 mL/hr Rate/Dose Verify 01/27/2025 6:00 AM EDT 125 mL/hr 125 mL/ hr Rate/Dose Verify 01/27/2025 5:00 AM EDT 125 mL/hr 125 mL/ hr dextrose 5 % and sodium chloride 0.45 % infusion 75 mL/hr, Intravenous, Continuous, Starting on Thu01/27/25 at 0915, Until Thu01/29/25 at 1146, Routine New Bag 01/29/2025 9:51 AM EDT 75 mL/ hr 75 mL/hr New Bag 01/28/2025 7:20 PM EDT 75 mL/hr 75 mL/hr New Bag 01/28/2025 4:08 AM EDT 75 mL/hr 75 mL/hr dextrose 5 % and sodium chloride 0.45 % with KCl 20 mEq/L infusion 125 mL/hr, Intravenous, Continuous, Starting on Thu01/25/25 at 1530, Until Thu01/26/25 at 0756, Routine Rate/Dose Change 01/26/2025 7:00 AM EDT 125 mL/hr 125 mL/hr Rate/Dose Change 01/26/2025 6:00 AM EDT 125 mL/hr 125 mL/ hr Rate/Dose Change 01/26/2025 5:00 AM EDT 125 mL/hr 125 mL/ hr enoxaparin (Lovenox) syringe 40 mg 40 mg, Subcutaneous, Daily, First dose on Zohra 01/26/25 at 1200, Until Discontinued, Routine Given 02/01/2025 8:45 AM EDT 40 mg Left Lower Abdomen Given 01/31/2025 8:31 AM EDT 40 mg Le ft Lower Abdomen Given 01/30/2025 8:23 AM EDT 40 mg Le ft Upper Abdomen furosemide (Lasix) injection 20 mg 20 mg, Intravenous, Once, 1 dose, On Thu01/30/25 at 0900, Routine Given 01/30/2025 8:23 AM EDT 20 mg heparin (porcine) injection 5,000 Units 5,000 Units, Subcutaneous, Once, 1 dose, On Thu01/25/25 at 0715, Routine, Holding - Preprocedure Given 01/25/2025 7:45 AM EDT 5,000 Units Right Lower Abdomen heparin (porcine) injection 5,000 Units 5,000 Units, Subcutaneous, Every 8 hours scheduled, First dose on Thu01/25/25 at 1530, Until Discontinued, Routine, Recovery(Phase II-Outpatient)/On Unit(Inpatient) Given 01/26/2025 5:02 AM EDT 5,000 Units Left Lower Abdomen Given 01/25/2025 9:01 PM EDT 5,000 Units L eft Lower Abdomen Given 01/25/2025 2:58 PM EDT 5,000 Units R ight Lower Abdomen ibuprofen 100 MG/5ML suspension 600 mg 600 mg, Per J Tube, Every 6 hours scheduled, First dose on Thu01/27/25 at 1200, Until Discontinued, Routine Given 02/01/2025 12:16 PM EDT 600 mg Given 02/01/2025 5:04 AM EDT 600 mg Given 01/31/2025 11:56 PM EDT 600 mg iohexol (OMNIPaque) 350 MG/ML injection 200 mL 200 mL, Oral, Once in imaging, 1 dose, Starting on Thu01/30/25 at 0854, Until Thu01/30/25 at 0941, Routine, Imaging Protocol Orders Given 01/30/2025 9:41 AM EDT 175 mL ipratropium-albuterol (Duo-Neb) 0.5-2.5 mg/3 mL nebulizer solution 3 mL 3 mL, Nebulization, Every 6 hours RT, First dose on Thu01/26/25 at 1500, Until Discontinued, Routine Given 02/01/2025 8:59 AM EDT 3 mL Given 01/31/2025 8:24 PM EDT 3 mL Given 01/31/2025 3:10 PM EDT 3 mL ketorolac (Toradol) injection 15 mg 15 mg, Intravenous, Every 6 hours scheduled, 8 doses, First dose on Thu01/25/25 at 1530, Last dose on Thu01/27/25 at 1200, Routine, Recovery(Phase II-Outpatient)/On Unit(Inpatient) Given 01/25/2025 2:46 PM EDT 15 mg ketorolac (Toradol) injection 15 mg 15 mg, Intravenous, Every 6 hours scheduled, 7 doses, First dose (after last modification) on Thu01/25/25 at 1800, Last dose on Thu01/27/25 at 0600, Routine, Recovery(Phase II-Outpatient)/On Unit(Inpatient) Given 01/27/2025 5:08 AM EDT 15 mg Given 01/26/2025 11:00 PM EDT 15 mg Given 01/26/2025 5:48 PM EDT 15 mg lidocaine (Lidoderm) 5 % patch 2 patch 2 patch, Apply externally, Every 24 hours, First dose on Thu01/25/25 at 1645, Until Discontinued, Administer over 12 Hours, Routine Medication Applied 01/25/2025 4:11 PM EDT 2 patches Chest lidocaine (Lidoderm) 5 % patch 2 patch 2 patch, Apply externally, Every 24 hours scheduled, First dose (after last modification) on Thu01/26/25 at 1330, Until Discontinued, Administer over 12 Hours, Routine Medication Applied 01/31/2025 8:31 AM EDT 2 patches Flank Medication Applied 01/29/2025 9:52 AM EDT 2 patches Other Medication Applied 01/28/2025 10:15 AM EDT 2 patches Back lidocaine (Xylocaine) 1 % injection 0.5 mL 0.5 mL, Injection, Once as needed, 1 dose, Starting on Thu01/25/25 at 0617, Until Thu01/25/25 at 0745, Routine, Holding - Preprocedure, If needed to start an IV. Given 01/25/2025 7:45 AM EDT 0.5 mL magnesium sulfate IVPB 2 g 2 g, Intravenous, Once, 1 dose, On Thu01/27/25 at 0715, Routine New Bag 01/27/2025 7:34 AM EDT 2 g 25 mL/hr magnesium sulfate IVPB 2 g 2 g, Intravenous, Once, 1 dose, On Thu01/28/25 at 1515, Routine New Bag 01/28/2025 4:19 PM EDT 2 g 25 mL/hr magnesium sulfate IVPB 2 g 2 g, Intravenous, Once, 1 dose, On Thu01/31/25 at 1330, Routine New Bag 01/31/2025 1:20 PM EDT 2 g 25 mL/hr methocarbamol (Robaxin) injection 1,000 mg 1,000 mg, Intravenous, Every 8 hours, 9 doses, First dose on Thu01/26/25 at 0745, Last dose on Thu01/28/25 at 2345, Routine Given 01/28/2025 10:55 PM EDT 1,000 mg Given 01/28/2025 3:30 PM EDT 1,000 mg Given 01/28/2025 6:45 AM EDT 1,000 mg metoclopramide (Reglan) 5 MG/5ML solution 5 mg 5 mg, Per J Tube, Every 6 hours scheduled, First dose on Thu01/31/25 at 0700, Until Discontinued, Routine Given 02/01/2025 12:16 PM EDT 5 mg Given 02/01/2025 5:04 AM EDT 5 mg Given 02/01/2025 12:06 AM EDT 5 mg metoclopramide (Reglan) injection 5 mg 5 mg, Intravenous, Every 6 hours scheduled, First dose on Thu01/27/25 at 1530, Until Discontinued, Routine Given 01/30/2025 11:57 PM EDT 5 mg Given 01/30/2025 5:07 PM EDT 5 mg Given 01/30/2025 12:05 PM EDT 5 mg morphine PF 2 mg 2 mg, Intravenous, Every 2 hour PRN, Starting on Thu01/25/25 at 1438, Until Thu01/26/25 at 0637, Routine, Recovery(Phase II-Outpatient)/On Unit(Inpatient), mild pain Given 01/25/2025 3:17 PM EDT 2 mg morphine PF 2 mg 2 mg, Intravenous, Once, 1 dose, On Thu01/25/25 at 1645, Routine, Recovery(Phase II-Outpatient)/On Unit(Inpatient) Given 01/25/2025 4:11 PM EDT 2 mg morphine PF 2 mg 2 mg, Intravenous, Every 2 hour PRN, Starting on Thu01/26/25 at 1242, Until Thu01/27/25 at 0803, Routine, Recovery(Phase II-Outpatient)/On Unit(Inpatient), moderate pain refractory to oxycodone (4-6 on the numeric pain scale) Given 01/26/2025 8:45 PM EDT 2 mg morphine PF 4 mg 4 mg, Intravenous, Every 2 hour PRN, Starting on Thu01/25/25 at 1438, Until Thu01/26/25 at 0637, Routine, Recovery(Phase II-Outpatient)/On Unit(Inpatient), moderate to severe pain Given 01/26/2025 5:12 AM EDT 4 m g Given 01/26/2025 2:08 AM EDT 4 mg Given 01/25/2025 8:02 PM EDT 4 mg morphine PF 4 mg 4 mg, Intravenous, Every 2 hour PRN, Starting on Thu01/26/25 at 0636, Until Thu01/26/25 at 1242, Routine, Recovery(Phase II-Outpatient)/On Unit(Inpatient), severe pain (7-10 on the numeric pain scale) Given 01/26/2025 11:26 AM EDT 4 mg Given 01/26/2025 7:55 AM EDT 4 mg mupirocin (Bactroban) 2 % ointment 1 Application Each Nostril, 2 times daily, 10 doses, First dose on Thu01/25/25 at 2100, Last dose on Thu01/30/25 at 0900, Routine Given 01/30/2025 8:23 AM EDT 1 Application Given 01/29/2025 8:05 PM EDT 1 Application Given 01/29/2025 9:53 AM EDT 1 Application omeprazole-sodium bicarbonate (Konvomep) 2-84 MG/ML suspension 40 mg 40 mg, Per J Tube, Daily, First dose on Thu01/27/25 at 0900, Until Discontinued, Routine Given 02/01/2025 8:46 AM EDT 40 mg Given 01/31/2025 8:32 AM EDT 40 mg Given 01/30/2025 8:23 AM EDT 40 mg oxyCODONE (Roxicodone) 1 MG/ML solution 10 mg 10 mg, Per J Tube, Every 4 hours PRN, Starting on Thu01/26/25 at 1238, Until Thu02/01/25 at 1638, Routine, severe pain (7-10 on the numeric pain scale) Given 01/31/2025 10:23 PM EDT 10 mg Given 01/31/2025 6:19 PM EDT 10 mg Given 01/31/2025 2:06 PM EDT 10 mg oxyCODONE (Roxicodone) 1 MG/ML solution 5 mg 5 mg, Per J Tube, Every 4 hours PRN, Starting on Thu01/26/25 at 1238, Until Thu02/01/25 at 1638, Routine, moderate pain (4-6 on the numeric pain scale) Given 01/29/2025 9:05 PM EDT 5 mg Given 01/29/2025 11:00 AM EDT 5 mg Given 01/28/2025 6:21 PM EDT 5 mg pantoprazole (Protonix) injection 40 mg 40 mg, Intravenous, Daily, First dose on Thu01/25/25 at 1530, Until Discontinued, Routine, Recovery(Phase II-Outpatient)/On Unit(Inpatient) Given 01/26/2025 8:47 AM EDT 40 mg Given 01/25/2025 2:58 PM EDT 40 mg phenol (Chloraseptic) 1.4 % mouth/throat spray 1 spray 1 spray, Mouth/Throat, Every 2 hour PRN, sore throat, Instruct patient to spit out after 15 seconds., Starting on Thu01/27/25 at 1052 Given 01/29/2025 10:46 AM EDT 1 spray Given 01/28/2025 5:34 PM EDT 1 spray Given 01/28/2025 2:35 PM EDT 1 spray potassium chloride IVPB 10 mEq 10 mEq, Intravenous, Every 1 hour, 4 doses, First dose on Thu01/27/25 at 0715, Last dose on Thu01/27/25 at 1015, RoutineIndications:Hypokalemia New Bag 01/27/2025 10:00 AM EDT 10 mEq 100 mL/hr New Bag 01/27/2025 9:03 AM EDT 10 mEq 100 mL/hr Rate/Dose Verify 01/27/2025 7:00 AM EDT 100 mL/ hr potassium chloride IVPB 10 mEq 10 mEq, Intravenous, Every 1 hour, 8 doses, First dose on Thu01/28/25 at 1515, Last dose on Thu01/28/25 at 2215, RoutineIndications:Hypokalemia New 01/28/2025 6:50 PM EDT 10 mEq 100 mL/hr New 01/28/2025 5:24 PM EDT 10 mEq 100 mL/hr New 01/28/2025 4:13 PM EDT 10 mEq 100 mL/hr potassium chloride IVPB 10 mEq 10 mEq, Intravenous, Every 2 hours scheduled, 5 doses, First dose (after last reorder) on Thu01/28/25 at 2015, Last dose on Thu01/29/25 at 0115, RoutineIndications:Hypokalemia New Bag 01/29/2025 2:14 AM EDT 10 m Eq 80 mL/hr New 01/29/2025 12:57 AM EDT 10 mEq 80 mL/hr New 01/28/2025 11:02 PM EDT 10 mEq 80 mL/hr potassium phosphates 15 mmol in sodium chloride 0.9 % 250 mL infusion 15 mmol, Intravenous, Once, 1 dose, On 01/28/25 at 1515, Routine New 01/28/2025 3:45 PM EDT 15 mmol 46.7 mL/hr documented in this encounter Active and Recently Administered Medications Times are shown in EDT. Scheduled Medication Order 01/30/2025 01/31/2025 02/01/2025 acetylcysteine (Mucomyst) 20 % solution 4 mL 4 mL, Nebulization, 2 times daily, First dose on Zohra 01/26/25 at 1330, Until Discontinued, Routine 09 (Not Given - Provider: Jaymie Devine - Reason: Patient in procedure)2052 (Given - Provider: Bing Gonzalez) 08 (Given - Provider: Talya Veras)2023 (Given - Provider: Lindsey Malik) 0859 (Not Given - Provider: Viviana Merida - Reason: Patient/family refused) enoxaparin (Lovenox) syringe 40 mg 40 mg, Subcutaneous, Daily, First dose on Zohra 01/26/25 at 1200, Until Discontinued, Routine 0823 (Given - Provider: Guerita Weiner RN) 0831 (Given - Provider: Marcial Lucia RN) 0845 (Given - Provider: Micheline Linn) furosemide (Lasix) injection 20 mg (COMPLETED) 20 mg, Intravenous, Once, 1 dose, On Thu01/30/25 at 0900, Routine 0823 (Given - Provider: Guerita Weiner RN) ibuprofen 100 MG/5ML suspension 600 mg 600 mg, Per J Tube, Every 6 hours scheduled, First dose on Thu01/27/25 at 1200, Until Discontinued, Routine 0609 (Given - Provider: Duong Savage RN)1205 (Given - Provider: Guerita Weiner RN)1707 (Given - Provider: Guerita Weiner RN) 0015 (Not Given - Provider: René Cai RN - Reason: Patient/family refused - Comment: patient states it upsets her stomach)0651 (Not Given - Provider: René Cai RN - Reason: Patient/family refused)1243 (Not Given - Provider: Marcial Lucia RN - Reason: Patient/family refused)1751 (Not Given - Provider: Marcial Lucia RN - Reason: Patient/family refused)2356 (Given - Provider: René Cai RN) 0504 (Given - Provider: René M Cai, RN)1216 (Given - Provider: Micheline Linn) iohexol (OMNIPaque) 350 MG/ML injection 200 mL (COMPLETED) 200 mL, Oral, Once in imaging, 1 dose, Starting on Thu01/30/25 at 0854, Until Thu01/30/25 at 0941, Routine, Imaging Protocol Orders 0941 (Given - Provider: Polina Layne) ipratropium-albuterol (Duo-Neb) 0.5-2.5 mg/3 mL nebulizer solution 3 mL 3 mL, Nebulization, Every 6 hours RT, First dose on Thu01/26/25 at 1500, Until Discontinued, Routine 0435 (Given - Provider: Jessica Mckenzie)0914 (Not Given - Provider: Jaymie Devine - Reason: Patient in procedure)1540 (Given - Provider: Tricia Nolan)2053 (Given - Provider: Bing Gonzalez) 0410 (Not Given - Provider: Bing Gonzalez - Reason: Patient/family refused)0828 (Given - Provider: Talya Veras)1510 (Given - Provider: Em Ceron)2024 (Given - Provider: Lindsey Malik) 0303 (Not Given - Provider: Lindsey Malik - Reason: Patient/family refused - Comment: pt did not want to be woke up for treatment)0859 (Given - Provider: Viviana Merida)1422 (Not Given - Provider: Viviana Merida - Reason: Patient/family refused) lidocaine (Lidoderm) 5 % patch 2 patch 2 patch, Apply externally, Every 24 hours scheduled, First dose (after last modification) on Thu01/26/25 at 1330, Until Discontinued, Administer over 12 Hours, Routine 0824 (Not Given - Provider: Guerita Weiner RN - Reason: Patient/family refused) 0831 (Medication Applied - Provider: Marcial Lucia, RONY)2100 (Medication Removed - Provider: René Cai, RONY) 0845 (Not Given - Provider: Micheline Linn - Reason: Patient/family refused) magnesium sulfate IVPB 2 g (COMPLETED) 2 g, Intravenous, Once, 1 dose, On Thu01/31/25 at 1330, Routine 1320 (New Bag - Provider: Marcial Lucia RN) metoclopramide (Reglan) 5 MG/5ML solution 5 mg 5 mg, Per J Tube, Every 6 hours scheduled, First dose on Thu01/31/25 at 0700, Until Discontinued, Routine 0833 (Given - Provider: Marcial Lucia RN)1230 (Given - Provider: Marcial Lucia RN)1753 (Given - Provider: Marcial Lucia RN) 0006 (Given - Provider: René Cai RN)0504 (Given - Provider: René Cai RN)1216 (Given - Provider: Micheline Linn) metoclopramide (Reglan) injection 5 mg (CANCELED) 5 mg, Intravenous, Every 6 hours scheduled, First dose on Thu01/27/25 at 1530, Until Discontinued, Routine 0610 (Given - Provider: Duong Savage RN)1205 (Given - Provider: Guerita Weiner RN)1707 (Given - Provider: Guerita Weiner RN)2357 (Given - Provider: René Cai RN) 0652 (Not Given - Provider: René Cai RN - Reason: Order changed) mupirocin (Bactroban) 2 % ointment 1 Application (COMPLETED) Each Nostril, 2 times daily, 10 doses, First dose on Thu01/25/25 at 2100, Last dose on Thu01/30/25 at 0900, Routine 0823 (Given - Provider: Guerita Weiner RN) omeprazole-sodium bicarbonate (Konvomep) 2-84 MG/ML suspension 40 mg 40 mg, Per J Tube, Daily, First dose on Thu01/27/25 at 0900, Until Discontinued, Routine 0823 (Given - Provider: Guerita Weiner RN) 0832 (Given - Provider: Marcial Lucia RN) 0846 (Given - Provider: Micheline Linn) PRN Medication Order 01/30/2025 01/31/2025 02/01/2025 acetaminophen (Tylenol) 160 MG/5ML solution 960 mg 960 mg, Per J Tube, Every 6 hours PRN, Starting on Thu01/30/25 at 0705, Until Thu02/01/25 at 1638, Routine, mild pain (1-3 on the numeric pain scale) 1954 (Given - Provider: René Cai RN) oxyCODONE (Roxicodone) 1 MG/ML solution 10 mg(Linked Group 1) 10 mg, Per J Tube, Every 4 hours PRN, Starting on Zohra 01/26/25 at 1238, Until Thu02/01/25 at 1638, Routine, severe pain (7-10 on the numeric pain scale) 0046 (Given - Provider: Duong Savage RN)2114 (Given - Provider: René Cai RN) 134 (Given - Provider: eRné Cai RN)1405 (Given - Provider: Marcial Lucia RN)1818 (Given - Provider: Marcial Lucia RN)2222 (Given - Provider: René Cai RN) oxyCODONE (Roxicodone) 1 MG/ML solution 5 mg(Linked Group 1) 5 mg, Per J Tube, Every 4 hours PRN, Starting on Zohra 01/26/25 at 1238, Until Thu02/01/25 at 1638, Routine, moderate pain (4-6 on the numeric pain scale) 0046 (See Alternative - Provider: Duong Savage RN)2114 (See Alternative - Provider: René Cai RN) 134 (See Alternative - Provider: René Cai RN)1405 (See Alternative - Provider: Marcial Lucia RN)1818 (See Alternative - Provider: Marcial Lucia RN)2222 (See Alternative - Provider: René Cai RN) phenol (Chloraseptic) 1.4 % mouth/throat spray 1 spray 1 spray, Mouth/Throat, Every 2 hour PRN, sore throat, Instruct patient to spit out after 15 seconds., Starting on Thu01/27/25 at 1052 Linked Groups Order Group 1: oxyCODONE (Roxicodone) 1 MG/ML solution 5 mgJump to med 5 mg, Per J Tube, Every 4 hours PRN, Starting on Zohra 01/26/25 at 1238, Until Thu02/01/25 at 1638, Routine, moderate pain (4-6 on the numeric pain scale) Or oxyCODONE (Roxicodone) 1 MG/ML solution 10 mgJump to med 10 mg, Per J Tube, Every 4 hours PRN, Starting on Zohra 01/26/25 at 1238, Until 02/01/25 at 1638, Routine, severe pain (7-10 on the numeric pain scale) documented in this encounter Additional Health Concerns Active Problems Noted Date Diagnosed Date Autogenerated Problem 12/26/2024 Autogenerated Problem 01/11/2025 Infection Onset Date Last Indicated Resolved Time C. difficile Rule-Out 01/27/2025 01/27/20252024 12:12 AM EDT Assessment Noted Time A fall risk assessment has been complete d for the patient 01/19/2025 2:19 PM EDT A Body Mass Index follow-up plan has been documented for the patient 02/01/2025 12:51 PM EDT documented as of this encounter Care Teams Home Health Billing Specialist Relationship Specialty Start Date End Date Caridad Oliver APRN [address] [place] [address] PCP - General 02/22/21 documented as of this encounter
--- OUTSIDE RECORDS SUMMARY | 2025-01-25 08:06 | XMS_ITS | Encounter Summary ---
Author Organization Healthcare Address [address] [place] [address] Care Team Providers Care Architectural Designer Name Role Phone Caridad Oliver APRN Primary Care Provider [phone] Reason for Visit * Auth/Cert (Routine) Specialty Diagnoses / Procedures Referred By Contac t Referred To Contact Diagnoses Achalasia Achalasia Procedures MO ESOPHAGECTOMY DISTAL 2/3 W/LAPAROSCOPIC MOBLJ MINIMALLY INVASIVE ESOPHAGECTOMY, LAPAROSCOPIC Jeffery Devine, DO [address] [address] Phone: tel: fax: [facility] [address] [place] [phone] Phone: tel: Referral ID Status Reason Start Date Expiration Date Visits Re quested Visits Authorized [id number] 1 1 Encounter Details Date Type Department Care Team (Late st Contact Info) Description 01/25/2025 8:06 AM EDT Anesthesia Event [facility] [address] [place] [phone] Lesa Mosquera MD [address] [place] [phone] Maged Mendoza MD [address] [place], [place] [id number] Anesthesia Record Procedure Summary Procedure Name Responsible Anesthesiologist Anesthesia Start Time Anesthesia Stop Time MINIMALLY INVASIVE ESOPHAGECTOMY, LAPAROSCOPIC Lesa Mosquera MD 01/25/25 0806 01/25/25 1430 Events Date Time Event Comment 01/25/2025 0757 0805 In Room 0806 An Start The patient was reevaluated immediately before sedation and remains eligible for anesthesia plan. 0806 An Start Data 0811 An Induction The patient was reevaluated immediately before moderate or deep sedation use and before anesthesia induction. 0813 An Intubation 0840 Anesthesia Ready 0850 An one lung vent 0855 Proc Start 0950 An Two-Lung Vent 1010 Manuelito Double lumen tu be exchanged under direct visualization to 7.5 single lumen ETT, Airway suctioned prior to and it was an atraumatic process. 1305 Proc Fin 1312 An Extubation 1317 Manuelito On hold for ICU bed 1417 an stop data 1418 Out of Room 1430 Handoff to Receiving I compl eted my handoff to the receiving clinician during which we: 1. Identified the patient 2. Identified the responsible provider 3. Reviewed the pertinent medical history 4. Discussed the surgical course 5. Reviewed intra-op anesthesia management and issues during anesthesia 6. Set expectations for post-procedure period 7. Allowed opportunity for questions and acknowledgement of understanding. 1430 An Stop Meds Name Total dexamethasone (Decadron) injection 4 mg/ mL 4 mg ceFAZolin 1 g 4 g rocuronium (ZeMuron) injection 10 mg/mL 160 mg fentaNYL (Sublimaze) injection 50 mcg/mL 250 mcg propofol (Diprivan) injection 10 mg/mL 1 50 mg lidocaine PF (Xylocaine-MPF) 2% 80 mg phenylephrine (Db-Synephrine) prefilled syringe 1 mg/10 mL 650 mcg ondansetron (Zofran) injection 2 mg/mL 4 mg sugammadex (Bridion) injection 100 mg/mL 150 mg ePHEDrine injection prefilled syringe 5 mg/mL 30 mg lactated Ringer's infusion 1,000 mL sodium chloride 0.9 % infusion 500 mL * Agents No agents on file. * Blood No blood administrations on file. Lines, Drains, and Airways Type Details Placement Removal Wound 01/09/25; 0845; Surgical; Laparoscopic; Abdomen; Anterior 01/09/25 0845 by Hood Real, sack cleaner 01/25/25; 0858; Surgical; Laparoscopic; Flank; Right, Outer 01/25/25 0858 by Hood Real, RN Gastrostomy/Enterosto my 01/25/25; 1100; Yes; Jejunostomy; 1; 14 Fr.; LUQ 01/25/25 1100 by Hood Real RN Gastrostomy/Enterosto my 01/09/25; 0920; Jejunostomy; 1; 14 Fr.; LUQ 01/09/25 0920 by Hood Real RN 01/25/25 0850 by Hood Real RN Chest Tube Placement Date: 01/25/25; Orientation: Right; Location: Pleural; Size: 28 Fr; Drainage System: [place]/nonsuction water seal drainage; Removal Date: 01/27/25; Removal Reason: Other (Comment) (removed prior to moving to [facility]) 01/25/25 0000 by Hood Real RN 01/27/25 0000 by Duong Savage RN Peripheral IV Placement Date: 01/25/25; Placement Time: 07; Catheter Size: 20 G; Orientation: Posterior, Right; Location: Forearm; Site Prep: Chlorhexidine ; Local Anesth: Injectable; Inserted by: Jaz Ko; Insertion Attempts: 2; Patient Tolerance: Tolerated well; Removal Date: 01/29/25; Removal Reason: Occluded 01/25/25 0746 by Yuli Ko RN 01/29/25 0000 by Duong Savage RN ETT Placement Date: 01/25/25; Placement Time: 08 (created via procedure documentation); Mask Ventilation: 0; Technique: Direct laryngoscopy; Type: ETT - single, ETT - double lumen left; Double Lumen Tube Size: 35 Fr; Cuffed: Yes; Laryngoscope: Prasanth; Blade Size: 3; Location: Oral; Grade View: Grade IIa; Insertion Attempts: 1; Placement Verification: Auscultation, Capnometry; Airway Comments: Atraumatic. No change to dentition. ; Placed by: Resident ; Removal Date: 01/25/25; Removal Time: 1312 01/25/25 0813 by Maged Mendoza MD 01/25/25 1312 by Maged Mendoza MD Urethral Catheter Placement Date: 01/25/25; Placement Time: 0821; Inserted by: Hood Real RN; Type: Temperature probe, Single lumen, Non-latex; Size: 16 Fr.; Balloon Size: 10 mL; Urine Returned: Yes; Removal Date: 01/26/25; Removal Time: 09; Removal Reason: Per order 01/25/25 0821 by Hood Real RN 01/26/25 09 by Mariely Do RN Arterial Line Placement Date: 01/25/25; Placement Time: 844 (created via procedure documentation); Size: 20 G; Orientation: Left; Location: Radial; Inserted by: Resident; Securement: Taped; Removal Date: 01/26/25; Removal Time: 09; Removal Reason: Per order 01/25/25 0845 by Maged Mendoza MD 01/26/25 0900 by Mariely Do RN Peripheral IV Placement Date: 01/25/25; Placement Time: 844 (created via procedure documentation); Catheter Size: 16 G; Orientation: Left; Location: Forearm; Local Anesth: None; Technique: Ultrasound guidance; Insertion Attempts: 1; Removal Date: 01/27/25; Removal Time: 2100; Removal Reason: Occluded 01/25/25 0845 by Maged Mendoza MD 01/27/25 2100 by Duong Savage RN Closed/Suction Drain 01/25/25; 1241; Lef t, Superior, Medial; Chest; Bulb; Other (Comment) (removed by MD at bedside) 01/25/25 1241 by Hood Real RN 02/01/25 1130 by Micheline Linn documented in this encounter Social History Tobacco Use Types Packs/Day Years [...] any time in the past 12 m [facility], were you homeless or living in a usp (including now)? No 01/26/2025 Utilities Answer Date Recorded In the past 12 months has th e electric, gas, oil, or water company threatened to shut off services in your home? No 01/26/2025 Comments No Sex and Gender Information Value Date Recorded Sex Assigned at Not on file Legal Sex Female 8:02 PM EDT Gender Identity Not on file Sexual Orientation Not on file documented as of this encounter Functional Status * Calculated C-SSRS Risk Score (Lifetime/Recent) Answer Date of Assessment Author No Risk Indicated 01/25/2025 8:00 PM Gaby Esquivel RN * Question Answer Date of Assessment Author 1. Wish to be (Past 1 Month) No 025 8:00 PM Gracie Esquivel RN 2. Non-Specific Active Suici fauzia Thoughts (Past 1 Month) No 01/25/2025 8:00 PM Gracie Esquivel RN 6. Suicidal Behavior (Lifetime) No 8:00 PM Gracie Esquivel RN documented as of this encounter Miscellaneous Notes * Anesthesia Postprocedure Evaluation - Maged Mendoza MD - 01/25/2025 2:30 PM EDT Patient: Kavita Rivera Anesthesia Type: general Vitals Value Taken Time BP 137/87 01/25/25 14:30 Temp 98.1 01/25/25 14:30 Pulse 74 01/25/25 14:30 Resp 15 01/25/25 14:30 SpO2 95 01/25/25 14:30 Anesthesia Post Evaluation Patient location during evaluation: ICU Patient participation: complete - patient participated Level of consciousness: baseline and awake Pain management: adequate (pain score 0-3) Airway patency: natural airway Cardiovascular status: acceptable and hemodynamically stable Respiratory status: acceptable, face mask and unassisted Hydration status: balanced No notable events documented. / Cosigned by Lesa Mosquera MD at 01/25/2025 2:43 PM EDT Associated attestation - Lesa Mosquera MD - 01/25/2025 2:43 PM EDT I agree with the findings and care plan documented in the postprocedure evaluation note. * Anesthesia Preprocedure Evaluation - Lesa Mosquera MD - 01/25/2025 10:36 AM EDT Patient: Kavtia Rivera 54 yo female pmhx of esophageal stricture 2/2 to achalasia, GERD well controlled here for the below procedure. She has a J tube that has been in place for approximately two weeks through which she has been getting her nutrition. She is appropriately NPO and has not had any feeds through her J tube in the last 8 hours, endorses > 4 METs, and is consented for GA Notably, she has had a hoarse voice and chronic cough bother her since a prior anesthetic that was attributed to an overly large endotracheal tube - will be cognizant of tube size choices, and gentleplacement/exchange. Procedure Information Anesthesia Start Date/Time: 01/25/25 0806 Procedure: MINIMALLY INVASIVE ESOPHAGECTOMY, LAPAROSCOPIC Location: [facility] / [facility] Surgeons: Jeffery Devine, DO Relevant Problems Anesthesia (within normal limits) Cardio (within normal limits) Endo (within normal limits) GI (within normal limits) /Renal (within normal limits) Neuro/Psych (within normal limits) Pulmonary (within normal limits) Digestive (+) Achalasia ROS Anesthesia: history of previous anesthesia and history of anesthetic complications. Does not have injury to tooth, obstructive sleep apnea and PONV. Cardiovascular: Negative cardio ROS. Respiratory: Negative respiratory ROS. HEENT: Negative HEENT ROS. Neurological: Negative neuro ROS. Gastrointestinal: GERD: well controlled.esophageal stricture. Hematological/Lymphatic: negative hematology/oncology ROS. Endocrine/Metabolic: Negative endocrine ROS. Clinical information reviewed: Med Hx Tobacco Allergies Surg Hx Fam Hx Soc Hx OB Status NPO Status Date of Last Liquid: 01/24/25 Time of Last Liquid: 2300 Date of Last Solid: 01/24/25 Time of Last Solid: 2000 Time of Last Void: 0600 Physical Exam Airway Mallampati: I Mouth opening: normal TM distance: >3 FB Neck ROM: full Cardiovascular Rhythm: regular Rate: normal Dental - normal exam Pulmonary Breath sounds clear to auscultation Neurological Oriented: normal to time, normal to place and normal to person and oriented to person, place and time Skin Musculoskeletal Extremities Anesthesia Plan ASA 3 Plan was reviewed with: attending and resident Anesthesia technique(s) discussed with the patient/family: general Anesthesia plan agreed upon was: general Anesthetic plan and risks discussed with patient. Use of blood products discussed with patient who consented to blood products. Additional Equipment Requests Scope: flexible bronchoscope Tube type: ETT - oral Double Lumen Size: 35 * Anesthesia Procedure Notes - Maged Mendoza MD - 01/25/2025 8:45 AM EDT Associated Order(s): Peripheral IV Peripheral IV Placement Needle size: 16 G Location: forearm Local anesthetic: none Site prep: alcohol Technique: ultrasound guided Attempts: 1 Cosigned by Lesa Mosquera MD at 01/25/2025 11:04 AM EDT Associated attestation - Lesa Mosquera MD - 01/25/2025 11:04 AM EDT I was present during all critical and emmanuel portions of the procedure(s) and immediately available tofurnish services the entire duration. See resident note for details. * Anesthesia Procedure Notes - Maged Mendoza MD - 01/25/2025 8:44 AM EDT Associated Order(s): Arterial Line Arterial Line: An arterial line was placed. Procedure performed using ultrasound guidance in the OR for the following indication(s): continuousblood pressure monitoring and blood sampling needed. A 20 gauge (size), 1 and 3/4 inch (length), Arrow (type) catheter was placed into the Left radial artery and secured by tape. Seldinger technique used Staffing Performed: Resident Anesthesiologist: Lesa Mosquera MD Resident: Maged Mendoza MD Cosigned by Lesa Mosquera MD at 01/25/2025 2:26 PM EDT Associated attestation - Lesa Mosquera MD - 01/25/2025 2:26 PM EDT I was present during all critical and emmanuel portions of the procedure(s) and immediately available tofurnish services the entire duration. See resident note for details. * Anesthesia Procedure Notes - Maged Mendoza MD - 01/25/2025 8:43 AM EDT Associated Order(s): Airway Airway Date/Time: 01/25/2025 8:13 AM Reason: elective Airway not difficult General Information and Staff Patient location during procedure: OR Anesthesiologist: Lesa Mosquera MD Resident: Maged Mendoza MD Performed: Resident Patient Condition Indications for airway management: anesthesia Patient position: sniffing Final Airway Details Final airway type: endotracheal airway Successful airway: ETT and ETT - double lumen left Cuffed: yes Successful intubation technique: direct laryngoscopy Adjuncts used in placement: intubating stylet and anterior pressure/BURP Endotracheal tube insertion site: oral Blade: Prasanth Blade size: #3 ETT DL size (fr): 35 Cormack-Lehane Classification: grade IIa - partial view of glottis Placement verified by: chest auscultation and capnometry Measured from: lips Additional Comments Atraumatic. No change to dentition. Cosigned by Lesa Mosquera MD at 01/25/2025 2:25 PM EDT Associated attestation - Lesa Mosquera MD - 01/25/2025 2:25 PM EDT I was present during all critical and emmanuel portions of the procedure(s) and immediately available [facility] services the entire duration. See resident note for details. documented in this encounter Plan of Treatment Upcoming Encounters Date Type Department Care Team (Late st Contact Info) Description 08/31/2025 8:30 AM EST Appointment [facility] [address] [place] [phone] 08/31/2025 9:30 AM EST Office Visit [facility] Res[facility] [address] [facility], [address]nd [place] [address] Jeffery Devine, DO [address] [facility] [address] [place] [phone] documented as of this encounter Goals Goal Patient Goal Type Associated Problems Recent Progress Patient-Stated? Author Autogenerat ed Goal Care Plan Autogenerated Problem No JohnsonLeticia Autogenerat ed Goal Care Plan Autogenerated Problem No JohnsonLeticia documented as of this encounter Procedures Procedure Name Priority Date/Time Associated Diagnosis Comments ANESTHESIA ULTRASOUND GUIDED Routine 01/25/2025 8:45 AM EDT PB ANESTHESIA NON-TIMED PROCEDURE PLACEHOLDER Routine 01/25/2025 8:44 AM EDT PB ANESTHESIA PLACEHOLDER Routine 01/25/2025 8:13 AM EDT MO AN ELECTIVE ENDOTRACHEAL AIRWAY Routine 01/25/2025 8:13 AM EDT documented in this encounter Results * ANESTHESIA ULTRASOUND GUIDED (01/25/2025 8:45 AM EDT) Lesa Beck MD - 01/25/2025 8:45 AM EDT Lesa Mosquera MD 01/25/2025 11:04 AM Peripheral IV Placement Needle size: 16 G Location: forearm Local anesthetic: none Site prep: alcohol Technique: ultrasound guided Attempts: 1 us Lesa Mosquera MD ANESTHESIA ORDERABLES Final Resu lt * PB ANESTHESIA NON-TIMED PROCEDURE PLACEHOLDER (01/25/2025 8:44 AM EDT) Lesa Beck MD - 01/25/2025 8:44 AM EDT Lesa Mosquera MD 01/25/2025 2:26 PM Arterial Line: An arterial line was placed. Procedure performed using ultrasound guidance in the OR for the following indication(s): continuous blood pressure monitoring and blood sampling needed. A 20 gauge (size), 1 and 3/4 inch (length), Arrow (type) catheter was placed into the Left radial artery and secured by tape. Seldinger technique used Staffing Performed: Resident Anesthesiologist: Lesa Mosquera MD Resident: Maged Mendoza MD us Lesa Mosquera MD ANESTHESIA ORDERABLES Edited Res ult - Final * MO AN ELECTIVE ENDOTRACHEAL AIRWAY, PB ANESTHESIA PLACEHOLDER (01/25/2025 8:13 AM EDT) Narrative Lesa Mosquera MD - 01/25/2025 8:13 AM EDT Lesa Mosquera MD 01/25/2025 2:25 PM Airway Date/Time: 01/25/2025 8:13 AM Reason: elective Airway not difficult General Information and Staff Patient location during procedure: OR Anesthesiologist: Lesa Mosquera MD Resident: Maged Mendoza MD Performed: Resident Patient Condition Indications for airway management: anesthesia Patient position: sniffing Final Airway Details Final airway type: endotracheal airway Successful airway: ETT and ETT - double lumen left Cuffed: yes Successful intubation technique: direct laryngoscopy Adjuncts used in placement: intubating stylet and anterior pressure/BURP Endotracheal tube insertion site: oral Blade: Prasanth Blade size: #3 ETT DL size (fr): 35 Cormack-Lehane Classification: grade IIa - partial view of glottis Placement verified by: chest auscultation and capnometry Measured from: lips Additional Comments Atraumatic. No change to dentition. Lesa Mosquera MD ANESTHESIA ORDERABLES Edited Res ult - Final documented in this encounter Visit Diagnoses Not on filedocumented in this encounter Administered Medications Inactive Administered Medications - up to 3 most recent administrations Medication Order MAR Action Action Date Dose Rate Site ceFAZolin (Ancef) injection Intravenous, As needed, Starting on Thu01/25/25 at 0840, Until Thu01/25/25 at 1430, Routine, Anesthesia Intraprocedure Given 01/25/2025 12:36 PM EDT 2 g Given 01/25/2025 8:40 AM EDT 2 g dexamethasone (Decadron) injection Intravenous, As needed, Starting on Thu01/25/25 at 0840, Until Thu01/25/25 at 1430, Routine, Anesthesia Intraprocedure Given 01/25/2025 8:40 AM EDT 4 mg ePHEDrine Sulfate injection Intravenous, As needed, Starting on Thu01/25/25 at 0906, Until Thu01/25/25 at 1430, Routine, Anesthesia Intraprocedure Given 01/25/2025 10:49 AM EDT 10 mg Given 01/25/2025 10:24 AM EDT 10 mg Given 01/25/2025 9:58 AM EDT 5 mg fentaNYL (Sublimaze) injection Intravenous, As needed, Starting on Thu01/25/25 at 0808, Until Thu01/25/25 at 1430, Routine, Anesthesia Intraprocedure Given 01/25/2025 1:09 PM EDT 25 mcg Given 01/25/2025 1:04 PM EDT 25 mcg Given 01/25/2025 12:00 PM EDT 50 mcg lactated Ringer's infusion Intravenous, Continuous PRN, Starting on Thu01/25/25 at 0805, Until Thu01/25/25 at 1430, Routine New Bag 01/25/2025 8:05 AM EDT lidocaine PF (Xylocaine) 2 % injection Intravenous, As needed, Starting on Thu01/25/25 at 0811, Until Thu01/25/25 at 1430, Routine, Anesthesia Intraprocedure Given 01/25/2025 8:11 AM EDT 80 mg ondansetron (Zofran) injection Intravenous, As needed, Starting on Thu01/25/25 at 1241, Until Thu01/25/25 at 1430, Routine, Anesthesia Intraprocedure Given 01/25/2025 12:41 PM EDT 4 mg phenylephrine in NS (Db-Synephrine) 100 mcg/mL prefilled syringe Intravenous, As needed, Starting on Thu01/25/25 at 1053, Until Thu01/25/25 at 1430, Routine, Anesthesia Intraprocedure Given 01/25/2025 11:45 AM EDT 20 0 mcg Given 01/25/2025 11:35 AM EDT 200 mcg Given 01/25/2025 11:16 AM EDT 150 mcg propofol (Diprivan) injection Intravenous, As needed, Starting on Thu01/25/25 at 0811, Until Thu01/25/25 at 1430, Routine, Anesthesia Intraprocedure Given 01/25/2025 8:11 AM EDT 150 mg rocuronium (ZeMuron) injection Intravenous, As needed, Starting on Thu01/25/25 at 0811, Until Thu01/25/25 at 1430, Routine, Anesthesia Intraprocedure Given 01/25/2025 11:45 AM EDT 20 mg Given 01/25/2025 10:53 AM EDT 20 mg Given 01/25/2025 9:34 AM EDT 20 mg sodium chloride 0.9 % infusion Intravenous, Continuous PRN, Starting on Thu01/25/25 at 0840, Until Thu01/25/25 at 1430, Routine New Bag 01/25/2025 8:40 AM EDT sugammadex (Bridion) 100 MG/ML injection Intravenous, As needed, Starting on Thu01/25/25 at 1250, Until Thu01/25/25 at 1430, Routine, Anesthesia Intraprocedure Given 01/25/2025 12:50 PM EDT 15 0 mg documented in this encounter Additional Health Concerns Active Problems Noted Date Diagnosed Date Autogenerated Problem 12/26/2024 Autogenerated Problem 01/11/2025 Assessment Noted Time A fall risk assessment has been complete d for the patient 01/19/2025 2:19 PM EDT A Body Mass Index follow-up plan has been documented for the patient 02/01/2025 12:51 PM EDT documented as of this encounter Care Teams Architectural Designer Relationship Specialty Start Date End Date Caridad Oliver APRN [address] [place] [address] PCP - General 02/22/21 documented as of this encounter
--- OUTSIDE RECORDS SUMMARY | 2025-01-25 08:15 | XMS_ITS | Encounter Summary ---
Author Organization Healthcare Address [address] [place] [address] Care Team Providers Care Sustainable Design Coordinator Name Role Phone Caridad Oliver APRN Primary Care Provider [phone] Reason for Visit * Auth/Cert (Routine) Specialty Diagnoses / Procedures Referred By Contac t Referred To Contact Diagnoses Achalasia Achalasia Procedures MS ESOPHAGECTOMY DISTAL 2/3 W/LAPAROSCOPIC MOBLJ MINIMALLY INVASIVE ESOPHAGECTOMY, LAPAROSCOPIC Jeffery Devine, DO [address] [address] Phone: tel: fax: [facility] [address] [place] [address] Phone: tel: Referral ID Status Reason Start Date Expiration Date Visits Re quested Visits Authorized [id number] 1 1 Encounter Details Date Type Department Care Team (Late st Contact Info) Description 01/25/2025 8:15 AM EDT - 01/25/2025 3:00 PM EDT Surgery [facility] [address] [place] [id number] Jeffery Devine, DO [address] [address] MINIMALLY INVASIVE ESOPHAGECTOMY, LAPAROSCOPIC [86014 (CPT )] Surgery Details Date/Time Status Location OR Service Patient Class Case Class Case Type Trauma Case? 01/25/2025 8:15 AM Posted [facility] 15 Cardiothoracic Surgery Surgery Admit E-Elect martin Panel 1 Procedure LRB Anes Op Region Wound Class Comments MINIMALLY INVASIVE ESOPHAGEC LIZA, LAPAROSCOPIC N/A General Surgeon Surgeon Role Service Panel Jeffery Devine, DO Primary Cardiothoracic Surge ry 1 Jeffery Devine, DO Primary Cardiothoracic Surge ry 1 Mary Chandra MD Resident - Assisting 1 Yeison Gallego MD Resident - Assisting 1 documented in this encounter Social History Tobacco [...] any time in the past 12 [facility], were you homeless or living in a [facility] (including now)? No 01/26/2025 Utilities Answer Date [...] Sign Reading Time Taken Comments Blood Pressure 114/71 01/25/2025 6:35 AM EDT Pulse 89 01/25/2025 3:00 PM EDT Temperature 36.7 C (98.1 F) 01/25/2025 3:00 PM EDT Respiratory Rate 19 01/25/2025 3:00 PM EDT Oxygen Saturation 96% 01/25/2025 3:00 PM EDT Inhaled Oxygen Concentration - - Weight 74 kg (163 lb 2.3 oz) 01/25/2025 6:17 AM EDT Height - - Body Mass Index 29.1 01/30/2025 12:00 PM EDT documented in this encounter Functional Status * Calculated C-SSRS Risk Score (Lifetime/Recent) Answer Date of Assessment Author No Risk Indicated 01/11/2025 8:00 AM EDT Ly Killian RN * Question Answer Date of Assessment Author 1. Wish to be (Past 1 Month) No 01/11/2025 8:00 AM EDT Ly Maynard RN 2. Non-Specific Active Suici fauzia Thoughts (Past 1 Month) No 01/11/2025 8:00 AM EDT Jaiden Maynard RN 6. Suicidal Behavior (Lifetime) No 8:00 AM EDT Ly Maynard RN documented as of this encounter Discharge [...] Clinic discharge # - For urgent questions/concerns: [facility] hotline: , option 4 - ask for the thoracic surgeon emulsion operator. documented in this encounter Medications at Time of Discharge cetirizine (ZyrTEC) 10 MG tablet Take 1 tablet by mouth daily as needed for allergies or rhinitis. 12/08/2023 escitalopram (Lexapro) 10 MG tablet Take 1 tablet by mouth nightly. Nutritional Supplements (isosource 1.5 Pastor/mL) 55 mL by Per J Tube route every 1 (one) hour. 29645 mL 5 01/19/2025 5 pantoprazole (Protonix) 40 [...] meals and at bedtime. 60 tablet 02/01/2025 ibuprofen 100 MG/5ML suspension Take 30 mL by mouth every 6 (six) hours for 10 days. 1200 mL 02/01/2025 5 lidocaine (Lidoderm) 5 % patch Apply 2 patches topically daily over 12 hours for 10 doses. Remove & discard patch within 12 hours or as directed by MD. 20 patch 02/02/2025 5 acetaminophen (Tylenol) 160 MG/5ML solution Take 30 mL by mouth every 6 hours as needed (mild pain (1-3 on the numeric pain scale)) for up to 10 days. 120 mL 02/01/2025 5 isosource 1.5 Pastor/mL liquid 55 mL/hr by Per J Tube route continuously at 55 mL/hr. Equivalent Substitutions Allowed? Yes 1 each 01/10/2025 5 documented as of this encounter Miscellaneous Notes * Kera Mahan - 02/01/2025 12:49 PM [...] doses at the same time unless your closing coordinator or doctor tells you to. ?? There are many medicines that can interfere with your Protonix. Always check with your closing coordinator or doctor before taking any other medicine, including mitn-otb-gpjkggn medicines (for example aspirin), vitamins, herbals, or [...] urination ?? Increased thirst Please call your closing coordinator, pharmacist, or doctor if you have any questions about thismedicine. * Kera Mahan - 02/01/2025 12:49 PM EDT Images from the original note were not included. Roxicodone - Video Learn how Roxicodone works to relieve your pain, possible side effects to be aware of, and how to properly use and store this medication. To view the video go to this web address: [email or web address] Or, scan this QR code with your smart phone ?? [facility] * Kera Mahan - 02/01/2025 12:49 PM EDT Images from the original note were not included. [id number] Metoclopramide Brand Name(s): Clopra??, Maxolon??, Metozolv?? ODT, [...] doctor or pharmacist will give you the director of psychiatry's patient information sheet (Medication Guide) when you begin treatment with metoclopramide and each time you refill your prescription. Read the information carefully and ask your doctor or pharmacist if you have any questions. You can also visit the Food and Drug Administration (FDA) website (https://www.fda.gov/Drugs/DrugSafety/mjy942609.htm) or the director of psychiatry's website to obtain the Medication Guide. Talk [...] balance); high blood pressure; depression; breast cancer; asthma;gisiwle-9-gcmcedkve dehydrogenase (G-6PD) deficiency (an inherited blood disorder); [...] and out of their sight and reach. [email or web address]://www.[email or web address] ROVERndVuMedi.[email or web address] Unneeded medications should be disposed of in [...] of all of the prescription and nonprescription (arbk-fts-yjmojum) medicines you are taking, as well as [...] or pharmacist about specific clinical use. The [place] [employer] represents that the information provided hereunder was formulated with a reasonable standard of care, and in conformity with professional standards in the field. The [place] [employer] makes no representations or warranties, express or implied, including, but not limited to, any implied warranty of merchantability and/or fitness for a particular purpose, with respect to such information and specifically disclaims all such warranties. Users are advised that decisions regarding drug therapy are complex medical decisions requiring the independent, informed decision of an appropriate health healthcare interpreter, and the information is provided for informational purposes only. The entire monograph for a drug should be reviewed for a thorough understanding of the drug's actions, uses and side effects. The [place] [employer] does not endorse or recommend the use of any drug.The information is not a substitute for medical care. AHFS?? Patient Medication Information?. ?? Copyright, 2023. The [place] [employer]??, [address], [address], [place], [place]. All Rights Reserved. Duplication for commercial use must be authorized by [facility]. Selected Revisions: July 26, 2018. AHFS?? Patient Medication Information?. ?? Copyright, 2024 * Bereket LindquistNOEMI - Kera Garcia - 02/01/2025 12:49 PM EDT Images from the original note were not included. [id number] Lidocaine Transdermal Patch Brand Name(s): Absorbine Jr?? Plus, Aspercreme Patch??, Dermalid??, Lidocare??, Lidoderm??, Salonpas??, Ztlido??, Synera?? (containing lidocaine and tetracaine); also available generically WHY is this medicine prescribed? Prescription lidocaine transdermal (Dermalid, Lidoderm, Ztildo) is used to relieve the pain of post-herpetic neuralgia (PHN; burning, stabbing pains, or aches that may last for months or years after a shingles infection). Nonprescription (tqrw-rlb-utkiiql) lidocaine (Absorbine Jr, Aspercreme, Lidoca re, Salonpas, [...] or doctor for a copy of the director of psychiatry's information for the patient. Are there OTHER [...] if you have or have ever had bomgubd-8-djmorhyjy dehydrogenase (G-6PD) deficiency (an inherited blood disorder), [...] and out of their sight and reach. https://www.[email or web address] ROVERndVuMedi.[email or web address] Unneeded medications should be disposed of in [...] be awakened, immediately call emergency services at 281. Symptoms of overdose may include: ?? lightheadedness [...] of all of the prescription and nonprescription (vcgt-rzk-ktmdnxh) medicines you are taking, as well as [...] or pharmacist about specific clinical use. The [place] [employer] represents that the information provided hereunder was formulated with a reasonable standard of care, and in conformity with professional standards in the field. The [place] [employer] makes no representations or warranties, express or implied, including, but not limited to, any implied warranty of merchantability and/or fitness for a particular purpose, with respect to such information and specifically disclaims all such warranties. Users are advised that decisions regarding drug therapy are complex medical decisions requiring the independent, informed decision of an appropriate health healthcare interpreter, and the information is provided for informational purposes only. The entire monograph for a drug should be reviewed for a thorough understanding of the drug's actions, uses and side effects. The [place] [employer] does not endorse or recommend the use of any drug.The information is not a substitute for medical care. AHFS?? Patient Medication Information?. ?? Copyright, 2023. [employer] [place] [employer]??, [address], [address], [place], [place]. All Rights Reserved. Duplication for commercial use must be authorized by [facility]. Selected Revisions: March 26, 2021. AHFS?? Patient Medication Information?. ?? Copyright, 2024 * Bereket Hartman - Kera Garcia - 02/01/2025 12:49 PM EDT Images from the original note were not included. [id number] Ibuprofen Brand Name(s): Addaprin??, Advil??, Cedaprin??, I-Prin??, [...] doctor or pharmacist will give you the director of psychiatry's patient information sheet (Medication Guide) when you begin treatment with prescription ibuprofen and each time you refill your prescription. Read the information carefully and ask your doctor or pharmacist if you have any questions. You can also visit the Food and Drug Administration (FDA) website (https://www.fda.gov/Drugs/DrugSafety/ckh918256.htm) or the director of psychiatry's website to obtain the Medication Guide. WHY [...] and out of their sight and reach. [email or web address]://www.[email or web address] ROVERndaway.[email or web address] Unneeded medications should be disposed of in [...] of all of the prescription and nonprescription (nldi-vgr-urpshtv) medicines you are taking, as well as [...] or pharmacist about specific clinical use. The [place] [employer] represents that the information provided hereunder was formulated with a reasonable standard of care, and in conformity with professional standards in the field. The [place] [employer] makes no representations or warranties, express or implied, including, but not limited to, any implied warranty of merchantability and/or fitness for a particular purpose, with respect to such information and specifically disclaims all such warranties. Users are advised that decisions regarding drug therapy are complex medical decisions requiring the independent, informed decision of an appropriate health healthcare interpreter, and the information is provided for informational purposes only. The entire monograph for a drug should be reviewed for a thorough understanding of the drug's actions, uses and side effects. The [place] [employer] does not endorse or recommend the use of any drug.The information is not a substitute for medical care. AHFS?? Patient Medication Information?. ?? Copyright, 2023. The [place] [employer]??, [address], [address], [place], [place]. All Rights Reserved. Duplication for commercial use must be authorized by [facility]. Selected Revisions: June 26, 2023. AHFS?? Patient Medication Information?. ?? Copyright, 2024 * Bereket Hartman - Kera Garcia - 02/01/2025 12:49 PM EDT Images from the original note were not included. [id number] Acetaminophen Brand Name(s): Actamin??, Feverall??, Panadol??, Tempra Quicklets??, Tylenol??, Dayquil?? (as a combination product containing Acetaminophen, Dextromethorphan, Pseudoephedrine), NyQuil Cold/Flu Relief?? (as a combination product containing Acetaminophen, Dextromethorphan, Doxylamine), Percocet?? (as a combination product containing Acetaminophen, Oxycodone) APAP, C-fukmnc-yyst-aminophenol, Paracetamol IMPORTANT WARNING: Taking too much acetaminophen [...] measuring cup or syringe provided by the director of psychiatry to measure each dose of the solution [...] and out of their sight and reach. https://www.[email or web address] ROVERndVuMedi.[email or web address] Unneeded medications should be disposed of in [...] of all of the prescription and nonprescription (itlo-jql-ckxrtey) medicines you are taking, as well as [...] or pharmacist about specific clinical use. The [place] [employer] represents that the information provided hereunder was formulated with a reasonable standard of care, and in conformity with professional standards in the field. The [place] [employer] makes no representations or warranties, express or implied, including, but not limited to, any implied warranty of merchantability and/or fitness for a particular purpose, with respect to such information and specifically disclaims all such warranties. Users are advised that decisions regarding drug therapy are complex medical decisions requiring the independent, informed decision of an appropriate health healthcare interpreter, and the information is provided for informational purposes only. The entire monograph for a drug should be reviewed for a thorough understanding of the drug's actions, uses and side effects. The [place] [employer] does not endorse or recommend the use of any drug.The information is not a substitute for medical care. AHFS?? Patient Medication Information?. ?? Copyright, 2023. [employer] [place] [employer]??, [address], [address], [place], [place]. All Rights Reserved. Duplication for commercial use must be authorized by [facility]. Selected Revisions: June 26, 2023. AHFS?? Patient [...] Your doctor will see you at the [facility]. ?? Your doctor may give [...] Clinic at . Or you can call [facility] at . Special Instructions: 4/13 * Discharge Instr - Diet - Kera [...] a tub bath for 2 weeks. - [place]/Stitches will be removed at follow up appointment [...] Clinic discharge # - For urgent questions/concerns: [facility] hotline: , option 4 - ask for the thoracic surgeon emulsion operator. Medications: - You should take Tylenol and/or [...] DO PCP name and Address: Caridad Oliver, TURF FARMER [address] [place] [address] / [place] [address] Referring provider name and address: No referring [...] Your Medications These medications were sent to [facility] [place], [place] - [address] [facility] [id number] acetaminophen 160 MG/5ML solution ibuprofen 100 MG/5ML [...] Clinic discharge # - For urgent questions/concerns: [facility] hotline: , option 4 - ask for the thoracic surgeon emulsion operator. Outpatient Follow-Up No future appointments. Test Results [...] Note Candido Rivera 54 y.o. female CSN: [id number] Admission: 01/25/2025 5:44 AM Primary Problem: Achalasia Primary River Rat: Primary Caregiver: Self Assistance Available at Discharge: Current Outpatient/Agency/Support Group: infusion therapy, home Availability of Care Givers (#Hours): 24 hours Family/River Rat(s) Willingness Assessed to care for patient at home: Yes Family/River Rat(s) Readiness Assessed to care for patient at [...] provide transport home. Resumption order/referral sent to [facility] with Bella aware. No other needs. Que Sahu RN Case Piercing Specialist 4 * Hospital Course - Jimi Lawrence [...] from the original note were not included. [facility] Department of Surgery Section of Thoracic Surgery ICU Progress Note 01/31/25 Candido Rivera History of Present Illness Candido Rivera is a 54 y.o. female PMHx GERD, end stage achalasia s/p Heller myotomy and Trafford fundoplication (2016) 6 Days Post-Op from a Estelita esophagectomy [...] as documented. * Consults - Maya Green, LOWELL - 01/30/2025 12:15 PM EDT Adult Nutrition Evaluation Note Candido Rivera 54 y.o. female [facility]: [id number] Room/Bed 122/122A Nutrition evaluation type: assessment Reason [...] Nasal cannula Rai Coma Scale Score: 15 Nanod Scale Score: 20 Sarbjit/Cubbin Pressure Risk Score: [...] (Calculated): 29.1 Weight Evaluation: Overweight (BMI 25-29.9) [place] Body Weight (kg): 52.3 Percent [place] Body Weight: 142 Adjusted Body Weight (kg): [...] oz) Estimated Needs: Kcal/ K-35 Kcal Provided: 0300-9995 Kcal Needs Based On: Adjusted weight Gm [...] Education Provided: Will monitor Pertinent home medications: Shinto needs: Nutrition Focused Physical Exam: Physical exam [...] Note Candido Rivera 54 y.o. female CSN: [id number] Admission: 01/25/2025 5:44 AM Primary Problem: Achalasia Anticipated Discharge Date: 1-2 days Additional Comments: RN JOSE MANUEL reviewed chart and met with primary team to discuss plan of care. Patient is scheduled for UGI today. Patient not medically ready for discharge at this time. RONY RICHARD will continue to follow. Carlee Díaz RN * Progress Notes - Jimi Lawrence DO - 01/30/2025 7:24 AM EDT Images from the original note were not included. [facility] Department of Surgery Section of Thoracic Surgery ICU Progress Note 01/30/25 Candido Rivera History of Present Illness Candido Rivera is a 54 y.o. female PMHx GERD, end stage achalasia s/p Heller myotomy and Trafford fundoplication (2017) 5 Days Post-Op from a [...] from the original note were not included. [facility] Department of Surgery Section of Thoracic Surgery ICU Progress Note 01/29/25 Candido Rivera History of Present Illness Candido Rivera is a 54 y.o. female PMHx GERD, end stage achalasia s/p Heller myotomy and Yasmeen fundoplication (2016) 4 Days Post-Op from a [...] Output by Drain (mL) 01/27/25 07 - 01/27/25185801/27/25 190 - 01/28/25 0659 01/28/25 07 - 01/28/25 18501/28/25 1900 - 01/29/25 0659 01/29/25 0700 - [...] stage achalasia s/p Heller myotomy andDorr fundoplication (2017) now s/p minimally invasive Estelita esophagectomy, lap [...] bleeding or hematoma. Vein images sent to [facility]. Consult completed. * Care Plan - [...] provided to: Patient * Progress Notes - Yesion Gallego MD - 01/28/2025 6:40 AM EDT Images from the original note were not included. [facility] Department of Surgery Section of Thoracic [...] (mL) 01/26/25 07 - 01/26/25 1859 01/26/25 190 - 01/27/25 0659 01/27/25 0700 - 01/27/25 1859 01/27/25 1900 - 01/28/25 0659 01/28/25 07 - 01/28/25 1248 Closed/Suction Drain Left;Superior;Medial Chest [...] from the original note were not included. [facility] Department of Surgery Section of Thoracic [...] per 24 hour Intake 2503.33 ml Output 2025 ml Net 478.33 ml Lines/Drains/Tubes: Patient Lines/Drains/Airways Status Active Airway None Output by Drain (mL) 01/25/25 0700 - 01/25/25 18501/25/25 1900 - 01/26/25 0659 01/26/25 07 - 01/26/25 18501/26/25 1900 - 01/27/25 0659 01/27/25 0700 - [...] Note Candido Rivera 54 y.o. female CSN: [id number] Room/Bed 236/236A Nutrition evaluation type: assessment Reason [...] (Calculated): 28.91 Weight Evaluation: Overweight (BMI 25-29.9) [place] Body Weight (kg): 52.3 Percent [place] Body Weight: 141 Adjusted Body Weight (kg): [...] oz) Estimated Needs: Kcal/ K-35 Kcal Provided: 4932-1998 Kcal Needs Based On: Adjusted weight Gm Protein/ Kg : 1.3-1.6 Protein Provided: 75-92 Protein Needs Based On: Adjusted weight Metabolic Cart Study Results: Current Nutrition Intake: Diet Order: NPO Diet Experience and Nutrition History: Diet Education Provided: Will monitor Pertinent home medications: Shinto needs: Nutrition Focused Physical Exam: Unable to [...] Note Candido Rivera 54 y.o. female CSN: [id number] Admission: 01/25/2025 5:44 AM Primary Problem: Achalasia Manager Agricultural reviewed chart and spoke with the patient at bedside to complete this Initial Case Management Assessment. PCP: Rogerio Mays Emergency Contact: Extended Emergency Contact Information Primary Emergency Contact: Carlee Rivera Mobile Relation: Sister Rail Assembler needed? No Insurance: Primary Visit Coverage Payer Plan Sponsor Code Group Number Group Name AMANDA PATEL CRISTIAN/[employer] [id number] Primary Visit Coverage Subscriber Subscriber ID Subscriber Name Subscriber SSN Subscriber Address [id number] RIVERACANDIDO Helton [id number] [place] [address] [place] [id number] Patient information: Primary Caregiver: Self Support System: Immediate family Daily Living Activities: Functional Status: Independent Living Arrangements: Children Type of Residence: Private residence [address] [place] [address] Smoker in the Home?: No Current DME: [...] DME Provider: [facility] Living Will/Advance Directive/Power of Property Coordinator /Guardian: Have you reviewed your Advance Directive and is it valid for this stay?: Not applicable Advance Directive: Patient does not have advance directive Information Provided on Healthcare Directives: No Pre-existing DNR/DNI Order: No Patient Requests Assistance: No Additional Comments: RN CM met with patient at bedside for initial assessment and discuss role in discharge planning. Confirmed address on file. Patient lives with her son in a single level home witha basement. Patient states she was independent prior to admit. Patient is current with [facility]. Denies any other DME/HH/HD/O2. PCP is Hood Mays. Patient has [employer] insurance and uses [facility] pharmacy in [place]. No CM/SW needs identified. Will continue to follow and assist. Carlee Díaz RN * Progress Notes - Di Deluca MD - 01/26/2025 6:31 AM EDT Images from the original note were not included. [facility] Department of Surgery Section of Thoracic Surgery [...] Intake/Output Summary (Last 24 hours) at 01/26/2025 07 Last data filed at 01/26/2025 0700 Gross [...] 1:41 PM EDT Associated attestation - Jeffery Devine, - 01/26/2025 1:41 PM EDT I saw and evaluated the patient with the resident/fellow. I discussed the case with the resident/fellow and agree with the findings and plan as documented. * Significant Event - Jimi Lawrence, - 01/25/2025 5:11 PM EDT Images from the original note were not included. [facility] Department of Surgery Division of Thoracic [...] nursing staff. I have notified senior resident/attending emulsion operator with any issues or concerns. Jimi Lawrence DO, PGY1 Thoracic Surgery * Op Note - Jeffery Devine DO - 01/25/2025 8:55 AM EDT Operative Note Date: 01/25/25 Location: [facility] Name: Candido Rivera, : 1970, Diagnoses: Pre-op Diagnosis End Stage Achalasia Post-op Diagnosis End Stage Achalasia Procedure(s): Bronch, EGD, Minimally Invasive Estelita esophagectomy, Lap J tube insertion Attending Surgeon(s): * Jeffery Devine - Primary Lumber Tying Machine Operator(s): * Yeison Gallego MD - Resident [...] Output (mL) 0 mL 01/26/25 0600 NG/OG [place] Sump Nasogastric Right nostril (Active) Placement Verification X-ray 01/26/25399 Site Assessment Clean;Dry;Intact 01/26/25 040 Surrounding Skin Dry;Intact 01/26/25 040 Secured by Commercial tube daley 01/26/25 0400 NG/OG Status Low intermittent suction 01/26/25 040 Drainage Appearance Brown 01/26/25 0400 NG/OG Interventions Low intermittant suction;Skin assessed 01/26/25399 Output (mL) 0 mL 01/26/25 0600 Gastrostomy/Enterostomy Jejunostomy 1 14 Fr. LUQ (Active) Surrounding Skin Dry;Intact 01/26/25 040 Drain Status Open to gravity drainage 01/26/25 040 Site Description Clean;Dry 01/26/25 040 Dressing Status Clean;Dry;Intact 01/26/25399 Dressing Type Open to air 01/25/25 1600 Output (mL) 0 mL 01/26/25 0600 Urethral Catheter Temperature probe;Single lumen;Non-latex 16 Fr. (Active) Site Assessment Clean;Skin intact 01/26/25399 CAUTI: Collection Container Standard drainage bag;System closed;Collection container below bladder and tubing free of kinks 01/26/25 040 CAUTI: Securement Method Securing device (Describe) 01/26/25399 CAUTI: Specimen Collection Port Covered with Alcohol Cap Yes 01/26/25399 CAUTI: Urinary Catheter Necessity Yes, meets criteria 01/26/25399 CAUTI: Urinary Catheter Necessity Reasons Q1-2 hourly urine output of critically ill patient 01/26/25399 Output (mL) 50 mL 01/26/25599 Specimen: Specimens ID Source Frozen? 1 Esophagus [...] encircled with a Harken clamp and a Luis drain was passed. The esophagus was mobilized [...] a Endo-CURTIS stapler. The gastric conduit was thenformed with sequential firings of the purple Endo-CURTIS stapler. The remnant stomach was then mobilized well into the mediastinum in the Luis drain was delivered. The conduit was then tacked to the specimen for delivery into the neck. We then turned our attention to the neck portion of the procedure a incision was made along the anterior border of the SCM. We carried dissection down bluntly to the prevertebral fascia. A blunt finger sweep was performed identifying the Luis drain the Haywood drain was delivered into the neck as well as the esophagus stomach and conduit. The proximal esophagus was divided with a purple Endo-CURTIS stapler the specimen was test off the table and sent to pathology for evaluation. An NGT was passed under direct visualization. A stapled [id number] anastomosis per was performed with sequential firings [...] by: Jeffery Devine DO - 01/26/2025 * H&P - Di Deluca MD - 01/25/2025 4:53 AM EDT Images from the original note were not included. [facility] Department of Surgery Section of Thoracic [...] Tube route every 1 (one) hour., Disp: 26047 mL, Rfl: 5 Physical exam: There were [...] AM EST Appointment [facility] Radiology [address] [place] [address] 08/31/2025 9:30 AM EST Office Visit [facility] Res[facility] [address] [facility], 2nd [place] [address] Jeffery Devine, DO [address] [facility] [address] [place] [address] Scheduled Referrals Name Type Priority Associated Diagnoses Order Schedule Discharge Ambulatory referral to [facility] Outpatient Referral Routine Achalasia 1 Occurrences starting 02/01/2025 until 08/03/2026 documented as of this encounter Goals Goal Patient Goal Type Associated Problems Recent Progress Patient-Stated? Author Autogenerat ed Goal Care Plan Autogenerated Problem No JohnsonLeticia Autogenerat ed Goal Care Plan Autogenerated Problem No Johnson, Leticia Jarrett documented as of this encounter Procedures Procedure [...] EXAM Routine 01/25/2025 12:18 PM EDT Achalasia MS ESOPHAGECTOMY DISTAL 2/3 W/LAPAROSCOPIC MOBLJ 01/25/2025 7:50 [...] LAB HEMATOLOGY METHOD 02/01/2025 10:20 AM EDT [facility] RBC Count 3.60(L) 3.90 - 5.20 10*6/uL LAB HEMATOLOGY METHOD 02/01/2025 10:20 AM EDT [facility] HGB 10.3(L) 11.2 - 15.7 g/dL LAB HEMATOLOGY METHOD 02/01/2025 10:20 AM EDT [facility] HCT 31.9(L) 34.0 - 45.0 % LAB HEMATOLOGY METHOD 02/01/2025 10:20 AM EDT [facility] Platelet Count 259 155 - 369 10*3/uL LAB HEMATOLOGY METHOD 02/01/2025 10:20 AM EDT [facility] MCV 89 79 - 98 fL LAB HEMATOLOGY METHOD 02/01/2025 10:20 AM EDT [facility] MCH 28.6 26.0 - 32.0 pg LAB HEMATOLOGY METHOD 02/01/2025 10:20 AM EDT [facility] MCHC 32.3 30.7 - 35.5 g/dL LAB HEMATOLOGY METHOD 02/01/2025 10:20 AM EDT [facility] RDW 14.1 11.5 - 14.5 % LAB HEMATOLOGY METHOD 02/01/2025 10:20 AM EDT [facility] MPV 10.6 8.8 - 12.5 fL LAB HEMATOLOGY METHOD 02/01/2025 10:20 AM EDT [facility] nRBC 0.0 <=0.0 per 100 WBCs LAB HEMATOLOGY METHOD 02/01/2025 10:20 AM EDT [facility] Blood Venous blood specimen / Unknown Venipuncture / Unknown 02/01/2025 9:57 AM EDT 02/01/2025 10:13 AM EDT Diamante Weber [employer] LAB BLOOD ORDERABLES Final Re sult [facility] [address] [place] [address] * Magnesium, Plasma (02/01/2025 9:57 AM EDT) Magnesium, Plasma 2.2 1.9 - 2.4 mg/dL 02/01/2025 10:43 AM EDT [facility] Blood Venous blood specimen / Unknown Venipuncture / Unknown 02/01/2025 9:57 AM EDT 02/01/2025 10:13 AM EDT Diamante Kolby Gus [employer] LAB BLOOD ORDERABLES Final Re sult [facility] [address] [place] [address] * (ABNORMAL) Renal Function Panel, Plasma (02/01/2025 9:57 AM EDT) Glucose, Plasma 98 74 - 99 mg/dL 02/01/2025 10:43 AM EDT [facility] BUN, Plasma 15 7 - 21 mg/dL 02/01/2025 10:43 AM EDT [facility] Creatinine, Plasma 0.56(L) 0.60 - 1.10 mg/dL 02/01/2025 10:43 AM EDT [facility] BUN/Creatinine Ratio 27 02/01/2025 10:43 AM EDT [facility] Sodium, Plasma 140 136 - 145 mmol/L 02/01/2025 10:43 AM EDT [facility] Potassium, Plasma 4.2 3.6 - 4.9 mmol/L 02/01/2025 10:43 AM EDT [facility] Chloride, Plasma 104 97 - 107 mmol/L 02/01/2025 10:43 AM EDT [facility] CO2, Plasma 25 22 - 29 mmol/L 02/01/2025 10:43 AM EDT [facility] Anion Gap 11 6 - 16 mmol/L 02/01/2025 10:43 AM EDT [facility] Total Calcium, Plasma 8.7(L) 8.9 - 10.2 mg/dL 02/01/2025 10:43 AM EDT [facility] Phosphorus, Plasma 3.9 2.5 - 4.5 mg/dL 02/01/2025 10:43 AM EDT [facility] Albumin, Plasma 3.2(L) 3.5 - 5.2 g/dL 02/01/2025 10:43 AM EDT [facility] eGFRcr 110.0 mL/min/1.7 3m*2 02/01/2025 10:43 AM EDT [facility] Comment:Reported eGFRcr in m L/min/1.73m2 is based the CKD-EPI 2020 equation that does not use a race coefficient. Blood Venous blood specimen / Unknown Venipuncture / Unknown 02/01/2025 9:57 AM EDT 02/01/2025 10:13 AM EDT Diamante Weber [employer] LAB BLOOD ORDERABLES Final Re sult [facility] [address] [place] [address] * XR Chest 1 View (02/01/2025 6:56 [...] MD on 02/01/2025 9:35 AM Diamante Weber [employer] IMG XR PROCEDURES Final Resul t * (ABNORMAL) POCT glucose meter (01/31/2025 11:58 PM EDT) POCT Glucose 136(H) 74 - 99 mg/dL 02/01/2025 12:00 AM EDT [facility] Comment:Accuracy of [...] Comment 02/01/2025 12:00 AM EDT [facility] E Merchant ID [id number] Genia johnsonjered 02/01/2025 12:00 AM EDT [facility] Device ID [id number] 02/01/2025 12:00 AM EDT [facility] Specimen Type POC Capillary 02/01/2025 12:00 AM EDT [facility] Blood Capillary blood specimen / Unknown 01/31/2025 11:58 PM EDT 02/01/2025 12:00 AM EDT us Jeffery Devine DO LAB POINT OF CARE TE ST DOCKED DEVICE UNSOLICITED RESULTS Final Result [facility] [address] [place] [address] * (ABNORMAL) POCT glucose meter (01/31/2025 5:01 PM EDT) [facility] POCT Glucose 152(H) 74 - 99 mg/dL [...] for testing. Comment 01/31/2025 5:03 PM EDT [facility] E Merchant ID Yair Dia 025 5:03 PM EDT [facility] Device ID [id number] 01/31/2025 5:03 PM EDT [facility] Specimen Type POC Capillary 01/31/2025 5:03 PM EDT [facility] Blood Capillary blood specimen / Unknown 01/31/2025 5:01 PM EDT 01/31/2025 5:03 PM EDT Jeffery Devine DO LAB POINT OF CARE TE ST DOCKED DEVICE UNSOLICITED RESULTS Final Result [facility] [address] [place] [address] * (ABNORMAL) POCT glucose meter (01/31/2025 12:01 PM EDT) [facility] POCT Glucose 117(H) 74 - 99 mg/dL [...] 01/31/2025 12:03 PM EDT [facility] E Merchant ID Yair Dia 025 12:03 PM EDT [facility] Device ID [id number] 01/31/2025 12:03 PM EDT [facility] Specimen Type POC Capillary 01/31/2025 12:03 PM EDT [facility] Blood Capillary blood specimen / Unknown 01/31/2025 12:01 PM EDT 01/31/2025 12:03 PM EDT us Jeffery Devine DO LAB POINT OF CARE TE ST DOCKED DEVICE UNSOLICITED RESULTS Final Result Performing Organization Address City/[facility]/ZIP Co de Phone Number [facility] [address] [place] [address] * (ABNORMAL) Magnesium, Plasma (01/31/2025 10:50 AM EDT) Magnesium, Plasma 1.7(L) 1.9 - 2.4 mg/dL 01/31/2025 12:31 PM EDT [facility] Blood Venous blood specimen / Unknown Venipuncture / Unknown 01/31/2025 10:50 AM EDT 01/31/2025 11:07 AM EDT us Jeffery Devine DO LAB BLOOD ORDERABLES Final Re sult [facility] [address] [place] [address] * (ABNORMAL) Renal Function Panel, Plasma (01/31/2025 10:50 AM EDT) Glucose, Plasma 125(H) 74 - 99 mg/dL 01/31/2025 12:31 PM EDT [facility] BUN, Plasma 14 7 - 21 mg/dL 01/31/2025 12:31 PM EDT [facility] Creatinine, Plasma 0.57(L) 0.60 - 1.10 mg/dL 01/31/2025 12:31 PM EDT [facility] BUN/Creatinine Ratio 25 01/31/2025 12:31 PM EDT [facility] Sodium, Plasma 139 136 - 145 mmol/L 01/31/2025 12:31 PM EDT [facility] Potassium, Plasma 4.3 3.6 - 4.9 mmol/L 01/31/2025 12:31 PM EDT [facility] Chloride, Plasma 104 97 - 107 mmol/L 01/31/2025 12:31 PM EDT [facility] CO2, Plasma 21(L) 22 - 29 mmol/L 01/31/2025 12:31 PM EDT [facility] Anion Gap 14 6 - 16 mmol/L 01/31/2025 12:31 PM EDT [facility] Total Calcium, Plasma 8.5(L) 8.9 - 10.2 mg/dL 01/31/2025 12:31 PM EDT [facility] Phosphorus, Plasma 3.2 2.5 - 4.5 mg/dL 01/31/2025 12:31 PM EDT [facility] Albumin, Plasma 3.3(L) 3.5 - 5.2 g/dL 01/31/2025 12:31 PM EDT [facility] eGFRcr 109.5 mL/min/1.7 3m*2 01/31/2025 12:31 PM EDT [facility] Comment:Reported eGFRcr in m L/min/1.73m2 is based the CKD-EPI 2020 equation that does not use a race coefficient. Blood Venous blood specimen / Unknown Venipuncture / Unknown 01/31/2025 10:50 AM EDT 01/31/2025 11:07 AM EDT Jeffery Devine DO LAB BLOOD ORDERABLES Final Re sult [facility] [address] [place] [address] * (ABNORMAL) CBC W/O Differential (01/31/2025 10:50 AM EDT) WBC Count 12.95(H) 3.70 - 10.30 10*3/uL LAB HEMATOLOGY METHOD 01/31/2025 11:24 AM EDT [facility] RBC Count 3.73(L) 3.90 - 5.20 10*6/uL LAB HEMATOLOGY METHOD 01/31/2025 11:24 AM EDT [facility] HGB 11.0(L) 11.2 - 15.7 g/dL LAB HEMATOLOGY METHOD 01/31/2025 11:24 AM EDT [facility] HCT 32.6(L) 34.0 - 45.0 % LAB HEMATOLOGY METHOD 01/31/2025 11:24 AM EDT [facility] Platelet Count 263 155 - 369 10*3/uL LAB HEMATOLOGY METHOD 01/31/2025 11:24 AM EDT [facility] MCV 87 79 - 98 fL LAB HEMATOLOGY METHOD 01/31/2025 11:24 AM EDT [facility] MCH 29.5 26.0 - 32.0 pg LAB HEMATOLOGY METHOD 01/31/2025 11:24 AM EDT [facility] MCHC 33.7 30.7 - 35.5 g/dL LAB HEMATOLOGY METHOD 01/31/2025 11:24 AM EDT [facility] RDW 14.5 11.5 - 14.5 % LAB HEMATOLOGY METHOD 01/31/2025 11:24 AM EDT [facility] MPV 10.4 8.8 - 12.5 fL LAB HEMATOLOGY METHOD 01/31/2025 11:24 AM EDT [facility] nRBC 0.0 <=0.0 per 100 WBCs LAB HEMATOLOGY METHOD 01/31/2025 11:24 AM EDT [facility] Blood Venous blood specimen / Unknown Venipuncture / Unknown 01/31/2025 10:50 AM EDT 01/31/2025 11:08 AM EDT Jeffery Devine DO LAB BLOOD ORDERABLES Final Re sult [facility] [address] [place] [address] * XR Chest 1 View (01/31/2025 6:07 [...] POCT glucose meter (01/31/2025 5:28 AM EDT) Pathologist [facility] POCT Glucose 93 74 - 99 mg/dL [...] testing. Comment 01/31/2025 5:29 AM EDT [facility] E Merchant ID Yair Dia 025 5:29 AM EDT [facility] Device ID [id number] 01/31/2025 5:29 AM EDT [facility] Specimen Type POC Capillary 01/31/2025 5:29 AM EDT [facility] Blood Capillary blood specimen / Unknown 01/31/2025 5:28 AM EDT 01/31/2025 5:29 AM EDT us Jeffery Devine DO LAB POINT OF CARE TE ST DOCKED DEVICE UNSOLICITED RESULTS Final Result [facility] [address] [place] [address] * (ABNORMAL) POCT glucose meter (01/30/2025 11:47 PM EDT) [facility] POCT Glucose 118(H) 74 - 99 mg/dL [...] for testing. Comment 01/30/2025 11:51 PM EDT [facility] E Merchant ID Denise Nuno 01/30/2025 11:51 PM EDT [facility] Device ID [id number] 01/30/2025 11:51 PM EDT [facility] Specimen Type POC Capillary 01/30/2025 11:51 PM EDT [facility] Blood Capillary blood specimen / Unknown 01/30/2025 11:47 PM EDT 01/30/2025 11:51 PM EDT Jeffery Devine DO LAB POINT OF CARE TE ST DOCKED DEVICE UNSOLICITED RESULTS Final Result [facility] [address] [place] [address] * (ABNORMAL) POCT glucose meter (01/30/2025 5:44 PM EDT) [facility] POCT Glucose 125(H) 74 - 99 mg/dL [...] 01/30/2025 5:46 PM EDT [facility] E Merchant ID Lian Rene 025 5:46 PM EDT [facility] Device ID [id number] 01/30/2025 5:46 PM EDT [facility] Specimen Type POC Capillary 01/30/2025 5:46 PM EDT [facility] Blood Capillary blood specimen / Unknown 01/30/2025 5:44 PM EDT 01/30/2025 5:46 PM EDT us Jeffery Devine DO LAB POINT OF CARE TE ST DOCKED DEVICE UNSOLICITED RESULTS Final Result Performing Organization Address City/[facility]/ZIP Co de Phone Number [facility] [address] [place] [address] * POCT glucose meter (01/30/2025 12:06 PM EDT) [facility] POCT Glucose 78 74 - 99 mg/dL 01/30/2025 12:08 PM EDT [facility] Comment:Accuracy of a [...] for testing. Comment 01/30/2025 12:08 PM EDT [facility] E Merchant ID Lian Rene 025 12:08 PM EDT [facility] Device ID [id number] 01/30/2025 12:08 PM EDT [facility] Specimen Type POC Capillary 01/30/2025 12:08 PM EDT [facility] Blood Capillary blood specimen / Unknown 01/30/2025 12:06 PM EDT 01/30/2025 12:08 PM EDT us Jeffery Devine DO LAB POINT OF CARE TE ST DOCKED DEVICE UNSOLICITED RESULTS Final Result Performing Organization Address City/[facility] Co de Phone Number [facility] [address] [place] [address] * Magnesium, Plasma (01/30/2025 10:22 AM EDT) Pathologist [facility] Magnesium, Plasma 1.9 1.9 - 2.4 mg/dL 01/30/2025 11:11 AM EDT [facility] Blood Venous blood specimen / Unknown Venipuncture / Unknown 01/30/2025 10:22 AM EDT 01/30/2025 10:36 AM EDT us Jeffery Devine DO LAB BLOOD ORDERABLES Final Re sult [facility] [address] [place] [address] * (ABNORMAL) Renal Function Panel, Plasma (01/30/2025 10:22 AM EDT) Glucose, Plasma 102(H) 74 - 99 mg/dL 01/30/2025 11:11 AM EDT [facility] BUN, Plasma 9 7 - 21 mg/dL 01/30/2025 11:11 AM EDT [facility] Creatinine, Plasma 0.55(L) 0.60 - 1.10 mg/dL 01/30/2025 11:11 AM EDT [facility] BUN/Creatinine Ratio 16 01/30/2025 11:11 AM EDT [facility] Sodium, Plasma 143 136 - 145 mmol/L 01/30/2025 11:11 AM EDT [facility] Potassium, Plasma 4.2 3.6 - 4.9 mmol/L 01/30/2025 11:11 AM EDT [facility] Comment:Hemolyzed, result ma y be falsely increased. Chloride, Plasma 107 97 - 107 mmol/L 01/30/2025 11:11 AM EDT [facility] CO2, Plasma 22 22 - 29 mmol/L 01/30/2025 11:11 AM EDT [facility] Anion Gap 14 6 - 16 mmol/L 01/30/2025 11:11 AM EDT [facility] Total Calcium, Plasma 9.6 8.9 - 10.2 mg/dL 01/30/2025 11:11 AM EDT [facility] Phosphorus, Plasma 4.8(H) 2.5 - 4.5 mg/dL 01/30/2025 11:11 AM EDT [facility] Albumin, Plasma 3.6 3.5 - 5.2 g/dL 01/30/2025 11:11 AM EDT [facility] eGFRcr 110.4 mL/min/1.7 3m*2 01/30/2025 11:11 AM EDT [facility] Comment:Reported eGFRcr in m L/min/1.73m2 is based the CKD-EPI 2020 equation that does not use a race coefficient. Blood Venous blood specimen / Unknown Venipuncture / Unknown 01/30/2025 10:22 AM EDT 01/30/2025 10:36 AM EDT Jeffery Devine DO LAB BLOOD ORDERABLES Final Re sult [facility] [address] [place] [address] * CBC W/O Differential (01/30/2025 10:22 AM EDT) WBC Count 8.32 3.70 - 10.30 10*3/uL LAB HEMATOLOGY METHOD 01/30/2025 10:55 AM EDT [facility] RBC Count 4.26 3.90 - 5.20 10*6/uL LAB HEMATOLOGY METHOD 01/30/2025 10:55 AM EDT [facility] HGB 12.3 11.2 - 15.7 g/dL LAB HEMATOLOGY METHOD 01/30/2025 10:55 AM EDT [facility] HCT 36.9 34.0 - 45.0 % LAB HEMATOLOGY METHOD 01/30/2025 10:55 AM EDT [facility] Platelet Count 318 155 - 369 10*3/uL LAB HEMATOLOGY METHOD 01/30/2025 10:55 AM EDT [facility] MCV 87 79 - 98 fL LAB HEMATOLOGY METHOD 01/30/2025 10:55 AM EDT [facility] MCH 28.9 26.0 - 32.0 pg LAB HEMATOLOGY METHOD 01/30/2025 10:55 AM EDT [facility] MCHC 33.3 30.7 - 35.5 g/dL LAB HEMATOLOGY METHOD 01/30/2025 10:55 AM EDT [facility] RDW 14.3 11.5 - 14.5 % LAB HEMATOLOGY METHOD 01/30/2025 10:55 AM EDT [facility] MPV 10.7 8.8 - 12.5 fL LAB HEMATOLOGY METHOD 01/30/2025 10:55 AM EDT [facility] nRBC 0.0 <=0.0 per 100 WBCs LAB HEMATOLOGY METHOD 01/30/2025 10:55 AM EDT [facility] Blood Venous blood specimen / Unknown Venipuncture / Unknown 01/30/2025 10:22 AM EDT 01/30/2025 10:43 AM EDT Jeffery Devine DO LAB BLOOD ORDERABLES Final Re sult [facility] [address] [place] [address] * FL Barium Swallow (01/30/2025 10:03 AM [...] extraluminal contrast or anastomotic leak. Other: On integrative medicine physician imaging, unchanged positioning of the surgical clips [...] of extraluminal contrast oranastomotic leak. Other: On integrative medicine physician imaging, unchanged positioning of the surgical clipsoverlying [...] 01/29/2025 6:07 PM EDT [facility] E Merchant ID Lian Rene 025 6:07 PM EDT [facility] Device ID [id number] 01/29/2025 6:07 PM EDT [facility] Specimen Type POC Capillary 01/29/2025 6:07 PM EDT [facility] Blood Capillary blood specimen / Unknown 01/29/2025 6:05 PM EDT 01/29/2025 6:07 PM EDT us Jeffery Devine DO LAB POINT OF CARE TE ST DOCKED DEVICE UNSOLICITED RESULTS Final Result Performing Organization Address [facility] de Phone Number [facility] [address] [place] [address] * (ABNORMAL) POCT glucose meter (01/29/2025 11:17 [...] Comment 01/29/2025 11:18 AM EDT [facility] E Merchant ID Lian Rene 025 11:18 AM EDT [facility] Device ID [id number] 01/29/2025 11:18 AM EDT [facility] Specimen Type POC Capillary 01/29/2025 11:18 AM EDT [facility] Blood Capillary blood specimen / Unknown 01/29/2025 11:17 AM EDT 01/29/2025 11:18 AM EDT us Jeffery Devine DO LAB POINT OF CARE TE ST DOCKED DEVICE UNSOLICITED RESULTS Final Result Performing Organization Address City/[facility] Co de Phone Number [facility] [address] [place] [address] * XR Chest 1 View (01/29/2025 6:08 [...] - 99 mg/dL 01/29/2025 5:56 AM EDT [facility] Comment:Accuracy of a glucos e result [...] for testing. Comment 01/29/2025 5:56 AM EDT [facility] E Merchant ID Yakybets, Clementina 01/29/2025 5:56 AM EDT [facility] Device ID [id number] 01/29/2025 5:56 AM EDT [facility] Specimen Type POC Capillary 01/29/2025 5:56 AM EDT [facility] Blood Capillary blood specimen / Unknown 01/29/2025 5:48 AM EDT 01/29/2025 5:56 AM EDT us Jeffery Devine DO LAB POINT OF CARE TE ST DOCKED DEVICE UNSOLICITED RESULTS Final Result Performing Organization Address City/[facility]/ZIP Co de Phone Number [facility] [address] [place] [address] * Magnesium, Plasma (01/29/2025 1:38 AM EDT) Magnesium, Plasma 2.2 1.9 - 2.4 mg/dL 01/29/2025 2:14 AM EDT [facility] Blood Venous blood specimen / Unknown Venipuncture / Unknown 01/29/2025 1:38 AM EDT 01/29/2025 1:47 AM EDT us Jeffery Devine DO LAB BLOOD ORDERABLES Final Re sult [facility] [address] [place] [address] * (ABNORMAL) Renal Function Panel, Plasma (01/29/2025 1:38 AM EDT) Glucose, Plasma 120(H) 74 - 99 mg/dL 01/29/2025 2:14 AM EDT [facility] BUN, Plasma 5(L) 7 - 21 mg/dL 01/29/2025 2:14 AM EDT [facility] Creatinine, Plasma 0.53(L) 0.60 - 1.10 mg/dL 01/29/2025 2:14 AM EDT [facility] BUN/Creatinine Ratio 9 01/29/2025 2:14 AM EDT [facility] Sodium, Plasma 138 136 - 145 mmol/L 01/29/2025 2:14 AM EDT [facility] Potassium, Plasma 4.3 3.6 - 4.9 mmol/L 01/29/2025 2:14 AM EDT [facility] Chloride, Plasma 111(H) 97 - 107 mmol/L 01/29/2025 2:14 AM EDT [facility] CO2, Plasma 20(L) 22 - 29 mmol/L 01/29/2025 2:14 AM EDT [facility] Anion Gap 7 6 - 16 mmol/L 01/29/2025 2:14 AM EDT [facility] Total Calcium, Plasma 7.9(L) 8.9 - 10.2 mg/dL 01/29/2025 2:14 AM EDT [facility] Phosphorus, Plasma 3.1 2.5 - 4.5 mg/dL 01/29/2025 2:14 AM EDT [facility] Albumin, Plasma 3.1(L) 3.5 - 5.2 g/dL 01/29/2025 2:14 AM EDT [facility] eGFRcr 111.4 mL/min/1.7 3m*2 01/29/2025 2:14 AM EDT [facility] Comment:Reported eGFRcr in m L/min/1.73m2 is based the CKD-EPI 2020 equation that does not use a race coefficient. Blood Venous blood specimen / Unknown Venipuncture / Unknown 01/29/2025 1:38 AM EDT 01/29/2025 1:47 AM EDT us Jeffery Devine DO LAB BLOOD ORDERABLES Final Re sult [facility] [address] [place] [address] * (ABNORMAL) CBC W/O Differential (01/29/2025 1:38 AM EDT) WBC Count 12.38(H) 3.70 - 10.30 10*3/uL LAB HEMATOLOGY METHOD 01/29/2025 1:54 AM EDT [facility] RBC Count 3.49(L) 3.90 - 5.20 10*6/uL LAB HEMATOLOGY METHOD 01/29/2025 1:54 AM EDT [facility] HGB 10.4(L) 11.2 - 15.7 g/dL LAB HEMATOLOGY METHOD 01/29/2025 1:54 AM EDT [facility] HCT 30.6(L) 34.0 - 45.0 % LAB HEMATOLOGY METHOD 01/29/2025 1:54 AM EDT [facility] Platelet Count 241 155 - 369 10*3/uL LAB HEMATOLOGY METHOD 01/29/2025 1:54 AM EDT [facility] MCV 88 79 - 98 fL LAB HEMATOLOGY METHOD 01/29/2025 1:54 AM EDT [facility] MCH 29.8 26.0 - 32.0 pg LAB HEMATOLOGY METHOD 01/29/2025 1:54 AM EDT [facility] MCHC 34.0 30.7 - 35.5 g/dL LAB HEMATOLOGY METHOD 01/29/2025 1:54 AM EDT [facility] RDW 14.2 11.5 - 14.5 % LAB HEMATOLOGY METHOD 01/29/2025 1:54 AM EDT [facility] MPV 10.4 8.8 - 12.5 fL LAB HEMATOLOGY METHOD 01/29/2025 1:54 AM EDT [facility] nRBC 0.0 <=0.0 per 100 WBCs LAB HEMATOLOGY METHOD 01/29/2025 1:54 AM EDT [facility] [facility] Blood Venous blood specimen / Unknown Venipuncture / Unknown 01/29/2025 1:38 AM EDT 01/29/2025 1:47 AM EDT Jeffery Devine DO LAB BLOOD ORDERABLES Final Re sult [facility] [address] [place] [address] * (ABNORMAL) POCT glucose meter (01/28/2025 11:18 PM EDT) POCT Glucose 104(H) 74 - 99 mg/dL 01/28/2025 11:22 PM EDT [facility] Comment:Accuracy of a [...] for testing. Comment 01/28/2025 11:22 PM EDT [facility] E Merchant ID Sudheer Neely 025 11:22 PM EDT [facility] Device ID [id number] 01/28/2025 11:22 PM EDT [facility] Specimen Type POC Capillary 01/28/2025 11:22 PM EDT [facility] Blood Capillary blood specimen / Unknown 01/28/2025 11:18 PM EDT 01/28/2025 11:22 PM EDT us Jeffery Devine DO LAB POINT OF CARE TE ST DOCKED DEVICE UNSOLICITED RESULTS Final Result Performing Organization Address [facility] Co de Phone Number [facility] [address] [place] [address] * (ABNORMAL) POCT glucose meter (01/28/2025 6:13 PM EDT) POCT Glucose 120(H) 74 - 99 mg/dL [...] for testing. Comment 01/28/2025 6:15 PM EDT [facility] E Merchant ID Sophia Dickey 6:15 PM EDT [facility] Device ID [id number] 01/28/2025 6:15 PM EDT [facility] Specimen Type POC Capillary 01/28/2025 6:15 PM EDT [facility] Blood Capillary blood specimen / Unknown 01/28/2025 6:13 PM EDT 01/28/2025 6:15 PM EDT us Jeffery Devine DO LAB POINT OF CARE TE ST DOCKED DEVICE UNSOLICITED RESULTS Final Result Performing Organization Address City/[facility]/ZIP Co de Phone Number [facility] [address] [place] [address] * PERIPHERAL IV ([employer] L[employer]) (01/28/2025 3:56 [...] POCT glucose meter (01/28/2025 11:17 AM EDT) POCT Glucose 131(H) 74 - 99 mg/dL [...] for testing. Comment 01/28/2025 11:28 AM EDT [facility] E Merchant ID ShSophia guerra 11:28 AM EDT [facility] Device ID [id number] 01/28/2025 11:28 AM EDT [facility] Specimen Type POC Capillary 01/28/2025 11:28 AM EDT [facility] Blood Capillary blood specimen / Unknown 01/28/2025 11:17 AM EDT 01/28/2025 11:28 AM EDT us Jeffery Devine DO LAB POINT OF CARE TE ST DOCKED DEVICE UNSOLICITED RESULTS Final Result [facility] [address] [place] [address] * (ABNORMAL) POCT glucose meter (01/28/2025 8:31 AM EDT) [facility] POCT Glucose 101(H) 74 - 99 mg/dL 01/28/2025 8:33 AM EDT [facility] Comment:Accuracy of a [...] Comment 01/28/2025 8:33 AM EDT [facility] E Merchant ID Sophia Dickey 8:33 AM EDT [facility] Device ID [id number] 01/28/2025 8:33 AM EDT [facility] Specimen Type POC Capillary 01/28/2025 8:33 AM EDT [facility] Blood Capillary blood specimen / Unknown 01/28/2025 8:31 AM EDT 01/28/2025 8:33 AM EDT us Jeffery Devine DO LAB POINT OF CARE TE ST DOCKED DEVICE UNSOLICITED RESULTS Final Result Performing Organization Address [facility]/ZIP Co de Phone Number [facility] [address] [place] [address] * (ABNORMAL) Magnesium, Plasma (01/28/2025 6:08 AM EDT) [facility] Magnesium, Plasma 1.7(L) 1.9 - 2.4 mg/dL 01/28/2025 7:01 AM EDT [facility] Blood Venous blood specimen / Unknown Venipuncture / Unknown 01/28/2025 6:08 AM EDT 01/28/2025 6:32 AM EDT us Jeffery Devine DO LAB BLOOD ORDERABLES Final Re sult Performing Organization Address City/[facility]/ZIP Co de Phone Number [facility] [address] [place] [address] * (ABNORMAL) Renal Function Panel, Plasma (01/28/2025 6:08 AM EDT) Glucose, Plasma 454(H) 74 - 99 mg/dL 01/28/2025 7:01 AM EDT [facility] BUN, Plasma 5(L) 7 - 21 mg/dL 01/28/2025 7:01 AM EDT [facility] Creatinine, Plasma 0.53(L) 0.60 - 1.10 mg/dL 01/28/2025 7:01 AM EDT [facility] BUN/Creatinine Ratio 9 01/28/2025 7:01 AM EDT [facility] Sodium, Plasma 137 136 - 145 mmol/L 01/28/2025 7:01 AM EDT [facility] Potassium, Plasma 3.2(L) 3.6 - 4.9 mmol/L 01/28/2025 7:01 AM EDT [facility] Chloride, Plasma 106 97 - 107 mmol/L 01/28/2025 7:01 AM EDT [facility] CO2, Plasma 19(L) 22 - 29 mmol/L 01/28/2025 7:01 AM EDT [facility] Anion Gap 12 6 - 16 mmol/L 01/28/2025 7:01 AM EDT [facility] Total Calcium, Plasma 7.8(L) 8.9 - 10.2 mg/dL 01/28/2025 7:01 AM EDT [facility] Phosphorus, Plasma 2.3(L) 2.5 - 4.5 mg/dL 01/28/2025 7:01 AM EDT [facility] Albumin, Plasma 3.0(L) 3.5 - 5.2 g/dL 01/28/2025 7:01 AM EDT [facility] eGFRcr 111.4 mL/min/1.7 3m*2 01/28/2025 7:01 AM EDT [facility] Comment:Reported eGFRcr in m L/min/1.73m2 is based the CKD-EPI 2020 equation that does not use a race coefficient. Blood Venous blood specimen / Unknown Venipuncture / Unknown 01/28/2025 6:08 AM EDT 01/28/2025 6:32 AM EDT Jeffery Devine DO LAB BLOOD ORDERABLES Final Re sult [facility] [address] [place] [address] * (ABNORMAL) CBC W/O Differential (01/28/2025 6:08 AM EDT) WBC Count 9.14 3.70 - 10.30 10*3/uL LAB HEMATOLOGY METHOD 01/28/2025 6:44 AM EDT [facility] RBC Count 3.52(L) 3.90 - 5.20 10*6/uL LAB HEMATOLOGY METHOD 01/28/2025 6:44 AM EDT [facility] HGB 10.4(L) 11.2 - 15.7 g/dL LAB HEMATOLOGY METHOD 01/28/2025 6:44 AM EDT [facility] HCT 31.2(L) 34.0 - 45.0 % LAB HEMATOLOGY METHOD 01/28/2025 6:44 AM EDT [facility] Platelet Count 213 155 - 369 10*3/uL LAB HEMATOLOGY METHOD 01/28/2025 6:44 AM EDT [facility] MCV 89 79 - 98 fL LAB HEMATOLOGY METHOD 01/28/2025 6:44 AM EDT [facility] MCH 29.5 26.0 - 32.0 pg LAB HEMATOLOGY METHOD 01/28/2025 6:44 AM EDT [facility] MCHC 33.3 30.7 - 35.5 g/dL LAB HEMATOLOGY METHOD 01/28/2025 6:44 AM EDT [facility] RDW 14.0 11.5 - 14.5 % LAB HEMATOLOGY METHOD 01/28/2025 6:44 AM EDT [facility] MPV 10.8 8.8 - 12.5 fL LAB HEMATOLOGY METHOD 01/28/2025 6:44 AM EDT [facility] nRBC 0.0 <=0.0 per 100 WBCs LAB HEMATOLOGY METHOD 01/28/2025 6:44 AM EDT [facility] Blood Venous blood specimen / Unknown Venipuncture / Unknown 01/28/2025 6:08 AM EDT 01/28/2025 6:32 AM EDT us Jeffery Devine DO LAB BLOOD ORDERABLES Final Re sult Performing Organization Address [facility] Co de Phone Number [facility] [address] [place] [address] * (ABNORMAL) POCT glucose meter (01/28/2025 5:31 AM EDT) POCT Glucose 104(H) 74 - 99 mg/dL 01/28/2025 5:32 AM EDT [facility] Comment:Accuracy of a [...] Comment 01/28/2025 5:32 AM EDT [facility] E Merchant ID MichellekyClementina choudhury 01/28/2025 5:32 AM EDT [facility] Device ID [id number] 01/28/2025 5:32 AM EDT [facility] Specimen Type POC Capillary 01/28/2025 5:32 AM EDT [facility] Blood Capillary blood specimen / Unknown 01/28/2025 5:31 AM EDT 01/28/2025 5:32 AM EDT us Jeffery Devine DO LAB POINT OF CARE TE ST DOCKED DEVICE UNSOLICITED RESULTS Final Result Performing Organization Address [facility] Co de Phone Number [facility] [address] [place] [address] * XR Chest 1 View (01/28/2025 4:42 [...] Detected Not Detected 01/28/2025 12:12 AM EDT [facility] Stool Rectum structure / Unknown Non-blood Collection / Unknown 01/27/2025 10:40 PM EDT 01/27/2025 11:04 PM EDT Narrative [facility] - 01/28/2025 12:12 AM EDT [...] MICROBIOLOGY - GENERAL OR DERABLES Final Result [facility] [address] [place] [address] * (ABNORMAL) POCT glucose meter (01/27/2025 6:57 [...] for testing. Comment 01/27/2025 7:04 PM EDT [facility] E Merchant ID Flori Bullard 01/27/2025 7:04 PM EDT [facility] Device ID [id number] 01/27/2025 7:04 PM EDT [facility] Specimen Type POC Capillary 01/27/2025 7:04 PM EDT [facility] Blood Capillary blood specimen / Unknown 01/27/2025 6:57 PM EDT 01/27/2025 7:04 PM EDT Jeffery Devine DO LAB POINT OF CARE TE ST DOCKED DEVICE UNSOLICITED RESULTS Final Result Performing Organization Address City/State/[facility] Co de Phone Number [facility] [address] [place] [address] * XR Chest 1 View (01/27/2025 2:17 [...] MD on 01/27/2025 2:26 PM Diamante Weber [employer] IMG XR PROCEDURES Final Resul t * [...] for testing. Comment 01/27/2025 2:21 PM EDT [facility] E Merchant ID Flori Bullard 01/27/2025 2:21 PM EDT [facility] Device ID [id number] 01/27/2025 2:21 PM EDT [facility] Specimen Type POC Capillary 01/27/2025 2:21 PM EDT [facility] Blood Capillary blood specimen / Unknown 01/27/2025 1:56 PM EDT 01/27/2025 2:21 PM EDT us Jeffery Devine DO LAB POINT OF CARE TE ST DOCKED DEVICE UNSOLICITED RESULTS Final Result Performing Organization Address City/[facility] Co de Phone Number [facility] [address] [place] [address] * POCT glucose meter (01/27/2025 12:45 PM [...] for testing. Comment 01/27/2025 1:02 PM EDT [facility] E Merchant ID Flori Bullard 01/27/2025 1:02 PM EDT [facility] Device ID [id number] 01/27/2025 1:02 PM EDT [facility] Specimen Type POC Capillary 01/27/2025 1:02 PM EDT [facility] Blood Capillary blood specimen / Unknown 01/27/2025 12:45 PM EDT 01/27/2025 1:02 PM EDT us Jeffery Devine DO LAB POINT OF CARE TE ST DOCKED DEVICE UNSOLICITED RESULTS Final Result Performing Organization Address City/[facility] Co de Phone Number [facility] [address] [place] [address] * CBC W/O Differential (01/27/2025 4:42 AM EDT) WBC Count 9.91 3.70 - 10.30 10*3/uL LAB HEMATOLOGY METHOD 01/27/2025 5:04 AM EDT [facility] RBC Count 4.09 3.90 - 5.20 10*6/uL LAB HEMATOLOGY METHOD 01/27/2025 5:04 AM EDT [facility] HGB 11.9 11.2 - 15.7 g/dL LAB HEMATOLOGY METHOD 01/27/2025 5:04 AM EDT [facility] HCT 37.1 34.0 - 45.0 % LAB HEMATOLOGY METHOD 01/27/2025 5:04 AM EDT [facility] Platelet Count 213 155 - 369 10*3/uL LAB HEMATOLOGY METHOD 01/27/2025 5:04 AM EDT [facility] MCV 91 79 - 98 fL LAB HEMATOLOGY METHOD 01/27/2025 5:04 AM EDT [facility] Comment:Results inconsistent with previous lab findings. MCH 29.1 26.0 - 32.0 pg LAB HEMATOLOGY METHOD 01/27/2025 5:04 AM EDT [facility] MCHC 32.1 30.7 - 35.5 g/dL LAB HEMATOLOGY METHOD 01/27/2025 5:04 AM EDT [facility] RDW 14.1 11.5 - 14.5 % LAB HEMATOLOGY METHOD 01/27/2025 5:04 AM EDT [facility] MPV 10.6 8.8 - 12.5 fL LAB HEMATOLOGY METHOD 01/27/2025 5:04 AM EDT [facility] nRBC 0.0 <=0.0 per 100 WBCs LAB HEMATOLOGY METHOD 01/27/2025 5:04 AM EDT [facility] Blood Venous blood specimen / Unknown Venipuncture / Unknown 01/27/2025 4:42 AM EDT 01/27/2025 4:50 AM EDT us Jeffery Devine DO LAB BLOOD ORDERABLES Final Re sult [facility] [address] [place] [address] * (ABNORMAL) Magnesium, Plasma (01/27/2025 4:40 AM EDT) Magnesium, Plasma 1.8(L) 1.9 - 2.4 mg/dL 01/27/2025 5:19 AM EDT [facility] Blood Venous blood specimen / Unknown Venipuncture / Unknown 01/27/2025 4:40 AM EDT 01/27/2025 4:50 AM EDT us Jeffery Devine DO LAB BLOOD ORDERABLES Final Re sult [facility] [address] [place] [address] * (ABNORMAL) Renal Function Panel, Plasma (01/27/2025 4:40 AM EDT) Glucose, Plasma 124(H) 74 - 99 mg/dL 01/27/2025 5:19 AM EDT [facility] BUN, Plasma 7 7 - 21 mg/dL 01/27/2025 5:19 AM EDT [facility] Creatinine, Plasma 0.71 0.60 - 1.10 mg/dL 01/27/2025 5:19 AM EDT [facility] BUN/Creatinine Ratio 10 01/27/2025 5:19 AM EDT [facility] Sodium, Plasma 139 136 - 145 mmol/L 01/27/2025 5:19 AM EDT [facility] Potassium, Plasma 3.7 3.6 - 4.9 mmol/L 01/27/2025 5:19 AM EDT [facility] Chloride, Plasma 107 97 - 107 mmol/L 01/27/2025 5:19 AM EDT [facility] CO2, Plasma 23 22 - 29 mmol/L 01/27/2025 5:19 AM EDT [facility] Anion Gap 9 6 - 16 mmol/L 01/27/2025 5:19 AM EDT [facility] Total Calcium, Plasma 8.4(L) 8.9 - 10.2 mg/dL 01/27/2025 5:19 AM EDT [facility] Phosphorus, Plasma 3.1 2.5 - 4.5 mg/dL 01/27/2025 5:19 AM EDT [facility] Albumin, Plasma 3.4(L) 3.5 - 5.2 g/dL 01/27/2025 5:19 AM EDT [facility] eGFRcr 102.5 mL/min/1.7 3m*2 01/27/2025 5:19 AM EDT [facility] Comment:Reported eGFRcr in m L/min/1.73m2 is based the CKD-EPI 2020 equation that does not use a race coefficient. Blood Venous blood specimen / Unknown Venipuncture / Unknown 01/27/2025 4:40 AM EDT 01/27/2025 4:50 AM EDT us Jeffery Devine DO LAB BLOOD ORDERABLES Final Re sult [facility] [address] [place] [address] * (ABNORMAL) CBC W/O Differential (01/27/2025 3:28 AM EDT) WBC Count 5.41 3.70 - 10.30 10*3/uL LAB HEMATOLOGY METHOD 01/27/2025 4:01 AM EDT [facility] RBC Count 1.98(L) 3.90 - 5.20 10*6/uL LAB HEMATOLOGY METHOD 01/27/2025 4:01 AM EDT [facility] HGB 5.8(LL) 11.2 - 15.7 g/dL LAB HEMATOLOGY METHOD 01/27/2025 4:01 AM EDT [facility] HCT 21.0(L) 34.0 - 45.0 % LAB HEMATOLOGY METHOD 01/27/2025 4:01 AM EDT [facility] Platelet Count 119(L) 155 - 369 10*3/uL LAB HEMATOLOGY METHOD 01/27/2025 4:01 AM EDT [facility] MCV 106(H) 79 - 98 fL LAB HEMATOLOGY METHOD 01/27/2025 4:01 AM EDT [facility] Comment:Results inconsistent with previous lab findings. MCH 29.3 26.0 - 32.0 pg LAB HEMATOLOGY METHOD 01/27/2025 4:01 AM EDT [facility] MCHC 27.6(L) 30.7 - 35.5 g/dL LAB HEMATOLOGY METHOD 01/27/2025 4:01 AM EDT [facility] RDW 14.9(H) 11.5 - 14.5 % LAB HEMATOLOGY METHOD 01/27/2025 4:01 AM EDT [facility] MPV 10.9 8.8 - 12.5 fL LAB HEMATOLOGY METHOD 01/27/2025 4:01 AM EDT [facility] nRBC 0.0 <=0.0 per 100 WBCs LAB HEMATOLOGY METHOD 01/27/2025 4:01 AM EDT [facility] Blood Venous blood specimen / Unknown Venipuncture / Unknown 01/27/2025 3:28 AM EDT 01/27/2025 3:46 AM EDT us Jeffery Devine DO LAB BLOOD ORDERABLES Final Re sult [facility] [address] [place] [address] * XR Chest 1 View (01/27/2025 3:00 [...] - 99 mg/dL 01/27/2025 1:24 AM EDT [facility] Comment:Accuracy of a [...] for testing. Comment 01/27/2025 1:24 AM EDT [facility] E Merchant ID Lindsey Baer 01/27/2025 1:24 AM EDT [facility] Device ID [id number] 01/27/2025 1:24 AM EDT [facility] Specimen Type POC Capillary 01/27/2025 1:24 AM EDT [facility] Blood Capillary blood specimen / Unknown 01/27/2025 1:21 AM EDT 01/27/2025 1:24 AM EDT us Jeffery Devine DO LAB POINT OF CARE TE ST DOCKED DEVICE UNSOLICITED RESULTS Final Result Performing Organization Address City/State/[facility] Co de Phone Number [facility] [address] [place] [address] * POCT glucose meter (01/26/2025 7:23 PM EDT) Pathologist [facility] POCT Glucose 94 74 - 99 mg/dL [...] 01/26/2025 7:25 PM EDT [facility] E Merchant ID Cecilia Castillo 01/27/20 7:25 PM EDT [facility] Device ID [id number] 01/26/2025 7:25 PM EDT [facility] Specimen Type POC Capillary 01/26/2025 7:25 PM EDT [facility] Blood Capillary blood specimen / Unknown 01/26/2025 7:23 PM EDT 01/26/2025 7:25 PM EDT us Jeffery Devine DO LAB POINT OF CARE TE ST DOCKED DEVICE UNSOLICITED RESULTS Final Result Performing Organization Address City/[facility] Co de Phone Number [facility] [address] [place] [address] * POCT glucose meter (01/26/2025 6:25 AM EDT) [facility] POCT Glucose 97 74 - 99 mg/dL [...] 01/26/2025 7:37 AM EDT [facility] E Merchant ID Gracie Edmond 01/26/2025 7:37 AM EDT [facility] Device ID [id number] 01/26/2025 7:37 AM EDT [facility] Specimen Type POC Arterial 01/26/2025 7:37 AM EDT [facility] Blood Arterial blood specimen / Unknown 01/26/2025 6:25 AM EDT 01/26/2025 7:37 AM EDT us Jeffery Devine DO LAB POINT OF CARE TE ST DOCKED DEVICE UNSOLICITED RESULTS Final Result Performing Organization Address City/[facility] Co de Phone Number [facility] [address] [place] [address] * XR Chest 1 View (01/26/2025 2:36 [...] - 2.4 mg/dL 01/26/2025 12:42 AM EDT [facility] Blood Venous blood specimen / Unknown Venipuncture / Unknown 01/26/2025 12:02 AM EDT 01/26/2025 12:06 AM EDT us Jeffery Devine DO LAB BLOOD ORDERABLES Final Re sult [facility] [address] [place] [address] * (ABNORMAL) Renal Function Panel, Plasma (01/26/2025 12:02 AM EDT) Glucose, Plasma 127(H) 74 - 99 mg/dL 01/26/2025 12:42 AM EDT [facility] BUN, Plasma 11 7 - 21 mg/dL 01/26/2025 12:42 AM EDT [facility] Creatinine, Plasma 0.52(L) 0.60 - 1.10 mg/dL 01/26/2025 12:42 AM EDT [facility] BUN/Creatinine Ratio 21 01/26/2025 12:42 AM EDT [facility] Sodium, Plasma 140 136 - 145 mmol/L 01/26/2025 12:42 AM EDT [facility] Potassium, Plasma 4.8 3.6 - 4.9 mmol/L 01/26/2025 12:42 AM EDT [facility] Chloride, Plasma 107 97 - 107 mmol/L 01/26/2025 12:42 AM EDT [facility] CO2, Plasma 22 22 - 29 mmol/L 01/26/2025 12:42 AM EDT [facility] Anion Gap 11 6 - 16 mmol/L 01/26/2025 12:42 AM EDT [facility] Total Calcium, Plasma 8.7(L) 8.9 - 10.2 mg/dL 01/26/2025 12:42 AM EDT [facility] Phosphorus, Plasma 3.5 2.5 - 4.5 mg/dL 01/26/2025 12:42 AM EDT [facility] Albumin, Plasma 3.7 3.5 - 5.2 g/dL 01/26/2025 12:42 AM EDT [facility] eGFRcr 111.9 mL/min/1.7 3m*2 01/26/2025 12:42 AM EDT [facility] Comment:Reported eGFRcr in m L/min/1.73m2 is based the CKD-EPI 2020 equation that does not use a race coefficient. Blood Venous blood specimen / Unknown Venipuncture / Unknown 01/26/2025 12:02 AM EDT 01/26/2025 12:06 AM EDT Jeffery Devine DO LAB BLOOD ORDERABLES Final Re sult [facility] [address] [place] [address] * (ABNORMAL) CBC W/O Differential (01/26/2025 12:02 AM EDT) WBC Count 11.49(H) 3.70 - 10.30 10*3/uL LAB HEMATOLOGY METHOD 01/26/2025 12:23 AM EDT [facility] RBC Count 4.03 3.90 - 5.20 10*6/uL LAB HEMATOLOGY METHOD 01/26/2025 12:23 AM EDT [facility] HGB 11.7 11.2 - 15.7 g/dL LAB HEMATOLOGY METHOD 01/26/2025 12:23 AM EDT [facility] HCT 35.3 34.0 - 45.0 % LAB HEMATOLOGY METHOD 01/26/2025 12:23 AM EDT [facility] Platelet Count 260 155 - 369 10*3/uL LAB HEMATOLOGY METHOD 01/26/2025 12:23 AM EDT [facility] MCV 88 79 - 98 fL LAB HEMATOLOGY METHOD 01/26/2025 12:23 AM EDT [facility] MCH 29.0 26.0 - 32.0 pg LAB HEMATOLOGY METHOD 01/26/2025 12:23 AM EDT [facility] MCHC 33.1 30.7 - 35.5 g/dL LAB HEMATOLOGY METHOD 01/26/2025 12:23 AM EDT [facility] RDW 13.4 11.5 - 14.5 % LAB HEMATOLOGY METHOD 01/26/2025 12:23 AM EDT [facility] MPV 10.7 8.8 - 12.5 fL LAB HEMATOLOGY METHOD 01/26/2025 12:23 AM EDT [facility] nRBC 0.0 <=0.0 per 100 WBCs LAB HEMATOLOGY METHOD 01/26/2025 12:23 AM EDT [facility] Blood Venous blood specimen / Unknown Venipuncture / Unknown 01/26/2025 12:02 AM EDT 01/26/2025 12:06 AM EDT Jeffery Devine DO LAB BLOOD ORDERABLES Final Re sult [facility] [address] [place] [id number] * XR Chest 1 View (01/25/2025 3:17 [...] Detected Not Detected 01/26/2025 10:17 AM EDT [facility] Swab (Axilla and Groin) Non-blood Collection / Unknown 01/25/2025 3:02 PM EDT 01/25/2025 3:42 PM EDT Narrative [facility] - 01/26/2025 10:17 AM EDT This PCR assay was developed and its performance characteristics determined by [facility] as appropriate for clinical purposes. This assay has not been cleared or approved by the FDA, but is performed in a CLIA regulated laboratory that is qualified to perform high-complexity testing. us Jeffery Devine DO LAB MICROBIOLOGY - GENERAL OR DERABLES Final Result Performing Organization Address [facility] Co de Phone Number [facility] [address] [place] [address] * Multi Drug Resistance Test (01/25/2025 3:02 PM EDT) Pathologist [facility] Culture No growth at day 1 01/26/2025 1:57 PM EDT [facility] Swab (Nares and Alexandra Rectal) Non-blood Collection / Unknown 01/25/2025 3:02 PM EDT 01/25/2025 3:42 PM EDT us Jeffery Devine DO LAB MICROBIOLOGY - GENERAL OR DERABLES Final Result Performing Organization Address City/[facility]/ZIP Co de Phone Number [facility] [address] [place] [address] * (ABNORMAL) CBC W/O Differential (01/25/2025 2:59 PM EDT) Pathologist [facility] WBC Count 14.72(H) 3.70 - 10.30 10*3/uL LAB HEMATOLOGY METHOD 01/25/2025 3:33 PM EDT [facility] RBC Count 4.25 3.90 - 5.20 10*6/uL LAB HEMATOLOGY METHOD 01/25/2025 3:33 PM EDT [facility] HGB 12.2 11.2 - 15.7 g/dL LAB HEMATOLOGY METHOD 01/25/2025 3:33 PM EDT [facility] HCT 37.0 34.0 - 45.0 % LAB HEMATOLOGY METHOD 01/25/2025 3:33 PM EDT [facility] Platelet Count 260 155 - 369 10*3/uL LAB HEMATOLOGY METHOD 01/25/2025 3:33 PM EDT [facility] MCV 87 79 - 98 fL LAB HEMATOLOGY METHOD 01/25/2025 3:33 PM EDT [facility] MCH 28.7 26.0 - 32.0 pg LAB HEMATOLOGY METHOD 01/25/2025 3:33 PM EDT [facility] MCHC 33.0 30.7 - 35.5 g/dL LAB HEMATOLOGY METHOD 01/25/2025 3:33 PM EDT [facility] RDW 13.4 11.5 - 14.5 % LAB HEMATOLOGY METHOD 01/25/2025 3:33 PM EDT [facility] MPV 10.5 8.8 - 12.5 fL LAB HEMATOLOGY METHOD 01/25/2025 3:33 PM EDT [facility] nRBC 0.0 <=0.0 per 100 WBCs LAB HEMATOLOGY METHOD 01/25/2025 3:33 PM EDT [facility] Blood Venous blood specimen / Unknown Venipuncture / Unknown 01/25/2025 2:59 PM EDT 01/25/2025 3:24 PM EDT us Diamante Weber APRN LAB BLOOD ORDERABLES Final Re sult [facility] [address] [place] [address] * (ABNORMAL) Blood gas panel, arterial (01/25/2025 2:59 PM EDT) pH, Arterial 7.34(L) 7.35 - 7.45 LAB HEMATOLOGY METHOD 01/25/2025 3:16 PM EDT [facility] pCO2, Arterial 44 35 - 48 mmHg LAB HEMATOLOGY METHOD 01/25/2025 3:16 PM EDT [facility] pO2, Arterial 75(L) 83 - 108 mmHg LAB HEMATOLOGY METHOD 01/25/2025 3:16 PM EDT [facility] SO2, Measured, Arterial 95 94 - 98 % LAB HEMATOLOGY METHOD 01/25/2025 3:16 PM EDT [facility] Base Excess, Arterial -2.1(L) -2.0 - 3.0 mmol/L LAB HEMATOLOGY METHOD 01/25/2025 3:16 PM EDT [facility] Bicarbonate, Calculated, Arterial 24 22 - 26 mmol/L LAB HEMATOLOGY METHOD 01/25/2025 3:16 PM EDT [facility] Hematocrit, Whole Blood 37.3 34.0 - 45.0 % LAB HEMATOLOGY METHOD 01/25/2025 3:16 PM EDT [facility] Sodium, Whole Blood 141 136 - 145 mmol/L LAB HEMATOLOGY METHOD 01/25/2025 3:16 PM EDT [facility] Potassium, Whole Blood 3.7 3.6 - 4.9 mmol/L LAB HEMATOLOGY METHOD 01/25/2025 3:16 PM EDT [facility] Chloride, Whole Blood 108(H) 97 - 107 mmol/L LAB HEMATOLOGY METHOD 01/25/2025 3:16 PM EDT [facility] Glucose, Whole Blood 152(H) 74 - 99 mg/dL LAB HEMATOLOGY METHOD 01/25/2025 3:16 PM EDT [facility] Ionized Calcium, Whole Blood 4.6 4.6 - 5.1 mg/dL LAB HEMATOLOGY METHOD 01/25/2025 3:16 PM EDT [facility] Lactate, Arterial, Whole Blood 2.6(H) 0.5 - 1.6 mmol/L LAB HEMATOLOGY METHOD 01/25/2025 3:16 PM EDT [facility] Blood Arterial blood specimen / Unknown Arterial Puncture / Unknown 01/25/2025 2:59 PM EDT 01/25/2025 3:13 PM EDT us Diamante Weber [employer] LAB BLOOD ORDERABLES Final Re sult [facility] [address] [place] [address] * Magnesium, Plasma (01/25/2025 2:59 PM EDT) Magnesium, Plasma 1.9 1.9 - 2.4 mg/dL 01/25/2025 4:03 PM EDT [facility] Blood Venous blood specimen / Unknown Venipuncture / Unknown 01/25/2025 2:59 PM EDT 01/25/2025 3:22 PM EDT Diamante Weber [employer] LAB BLOOD ORDERABLES Final Re sult [facility] [address] [place] [address] * (ABNORMAL) Renal Function Panel, Plasma (01/25/2025 2:59 PM EDT) Glucose, Plasma 156(H) 74 - 99 mg/dL 01/25/2025 4:03 PM EDT [facility] BUN, Plasma 15 7 - 21 mg/dL 01/25/2025 4:03 PM EDT [facility] Creatinine, Plasma 0.63 0.60 - 1.10 mg/dL 01/25/2025 4:03 PM EDT [facility] BUN/Creatinine Ratio 24 01/25/2025 4:03 PM EDT [facility] Sodium, Plasma 139 136 - 145 mmol/L 01/25/2025 4:03 PM EDT [facility] Potassium, Plasma 3.8 3.6 - 4.9 mmol/L 01/25/2025 4:03 PM EDT [facility] Chloride, Plasma 104 97 - 107 mmol/L 01/25/2025 4:03 PM EDT [facility] CO2, Plasma 21(L) 22 - 29 mmol/L 01/25/2025 4:03 PM EDT [facility] Anion Gap 14 6 - 16 mmol/L 01/25/2025 4:03 PM EDT [facility] Total Calcium, Plasma 8.7(L) 8.9 - 10.2 mg/dL 01/25/2025 4:03 PM EDT [facility] Phosphorus, Plasma 3.7 2.5 - 4.5 mg/dL 01/25/2025 4:03 PM EDT [facility] Albumin, Plasma 3.8 3.5 - 5.2 g/dL 01/25/2025 4:03 PM EDT [facility] eGFRcr 106.9 mL/min/1.7 3m*2 01/25/2025 4:03 PM EDT [facility] Comment:Reported eGFRcr in m L/min/1.73m2 is based the CKD-EPI 2020 equation that does not use a race coefficient. Blood Venous blood specimen / Unknown Venipuncture / Unknown 01/25/2025 2:59 PM EDT 01/25/2025 3:22 PM EDT us Diamante Weber [employer] LAB BLOOD ORDERABLES Final Re sult [facility] [address] [place] [address] * Surgical Pathology Exam (01/25/2025 12:18 PM EDT) Case Report Surgical Pathology Case: [id number] Authorizing Provider: Jeffery Devine DO Collected: 01/25/2025 1218 Ordering Location: [facility] A OPERATING ROOM Received: 01/25/2025 1326 Pathologist: Harshil Banks MD Specimens: A) - Esophagus, portion of esophagus fresh for permanent B) - Esophagus, esophagogastric anastomosis fresh for permanent C) - Esophagus, esophagogastrectom y fresh for permanent 12:28 PM EDT [facility] Final Diagnosis A. ESOPHAGUS, EXCISION: - [...] LYMPH NODES (7) 5 12:28 PM EDT [facility] at 1228 EDT Clinical Information Achalasia 04/2 2/202 5 12:28 PM EDT [facility] Special and Immunohistochemical Stains Special Stain: [id number] Mike Trichrome Stain IHC: There are no tasks to display for the given criteria. All controls show appropriate reactivity. All immunohistochemist ry, in situ hybridization, and histochemical tests were developed by and are performed at the [facility], [address] [place] [address]. All tests reported here, except those addressing [...] likelihood of false negativity on decalcified specimens. 5 12:28 PM EDT [facility] Gross Description A. PORTION OF ESOPHAGUS FRESH FOR PERMANENT The specimens received fresh, placed in formalin labeled p ortion of esophagus and consists of a a 3.5 x 0.3 x 0.2 cm teague-pink segment of stapled esophagus with scantly attached esophageal tissue. The chiqui are excised and commercial representative sections are submitted in cassette A1. [...] to reveal teague-pink, grossly unremarkable mucosal surface. Test Engineering Manager sections are submitted in cassette B1. Cold [...] grossly identified. Gross photographs have been taken. Test Engineering Manager sections are submitted as follows: C1: Esophageal [...] 56m Angeles Barreto MD 12:28 PM EDT [facility] Note: A resident was involved in the service. I attest I examined the relevant preparations for the specimens and confirmed the diagnosis or interpretation. 12:28 PM EDT [facility] Tissue Esophageal structure / Unknown 01/25/2025 12:18 PM EDT 01/25/2025 1:26 PM EDT Comment:Pre-op diagnosis: Achalasia Tissue specimen (specimen) Esophageal structure / Unknown 01/25/2025 12:25 PM EDT 01/25/2025 1:26 PM EDT Comment:Pre-op diagnosis: Achalasia Tissue specimen (specimen) Esophageal structure / Unknown 01/25/2025 12:30 PM EDT 01/25/2025 1:26 PM EDT Comment:Pre-op diagnosis: Achalasia us Jeffery Devine DO LAB PATHOLOGY ORDERABLES Prudence l Result Performing Organization Address City/[facility]/ZIP Co de Phone Number [facility] [address] [place] [address] * Type and screen (01/25/2025 7:45 AM EDT) ABO/Rh A Positive 01/25/2025 6:17 AM EDT [facility] Antibody Screen Negative 01/25/2025 6:17 AM EDT [facility] Specimen Expiration 01/28/2025 23:59 01/25/2025 6:17 AM EDT [facility] Blood Venous blood specimen / Unknown Venipuncture / Unknown 01/25/2025 7:45 AM EDT 01/25/2025 8:01 AM EDT us Vickey Steel MD LAB BLOOD BANK TEST ORDERABL ES Final Result Performing Organization Address [facility] de Phone Number BLOOD BANK [address] [place] [address], documented in this encounter Visit Diagnoses Diagnosis 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 documented in this encounter Admitting Diagnoses Diagnosis Achalasia Achalasia and cardiospasm documented in this encounter Administered Medications Inactive Administered Medications - up to 3 most recent administrations Medication Order MAR Action Action Date Dose Rate Site acetaminophen (Tylenol) 160 MG/5ML solution 960 mg 960 mg, Per J Tube, Every 6 hours PRN, Starting on 01/30/25 at 0705, Until Thu02/01/25 at 1638, Routine, [...] Given 01/30/2025 8:53 PM EDT 4 mL bupivacaine PF (Marcaine) 0.25 % injection As needed, Starting on Thu01/25/25 at 0906, Until Thu01/25/25 at 1418, Routine, Intraprocedure Given 01/25/2025 9:06 AM EDT 30 mL bupivacaine PF (Marcaine) 0.5 % injection As needed, Starting on Thu01/25/25 at 0906, Until Thu01/25/25 at 1418, Routine, Intraprocedure Given 01/25/2025 9:06 AM EDT 30 mL enoxaparin (Lovenox) syringe 40 mg 40 mg, Subcutaneous, Daily, First dose on Thu01/26/25 at 1200, Until Discontinued, Routine Given 02/01/2025 8:45 AM EDT 40 mg Left Lower Abdomen Given 01/31/2025 8:31 AM EDT 40 mg Le ft Lower Abdomen Given 01/30/2025 8:23 AM EDT 40 mg Le ft Upper Abdomen ibuprofen 100 MG/5ML suspension 600 mg 600 mg, Per J Tube, Every 6 hours scheduled, First dose on Thu01/27/25 at 1200, Until Discontinued, Routine Given 02/01/2025 12:16 PM EDT 600 mg Given 02/01/2025 5:04 AM EDT 600 mg Given 01/31/2025 11:56 PM EDT 600 mg ipratropium-albuterol (Duo-Neb) 0.5-2.5 mg/3 mL nebulizer solution 3 mL 3 mL, Nebulization, Every 6 hours RT, First dose on Thu01/26/25 at 1500, Until Discontinued, Routine Given 02/01/2025 8:59 AM EDT 3 mL Given 01/31/2025 8:24 PM EDT 3 mL Given 01/31/2025 3:10 PM EDT 3 mL lidocaine (Lidoderm) 5 % patch 2 patch 2 patch, Apply externally, Every 24 hours scheduled, First dose (after last modification) on Thu01/26/25 at 1330, Until Discontinued, Administer over 12 Hours, Routine Medication Applied 01/31/2025 8:31 AM EDT 2 patches Flank Medication Applied 01/29/2025 9:52 AM EDT 2 patches Other Medication Applied 01/28/2025 10:15 AM EDT 2 patches Back metoclopramide (Reglan) 5 MG/5ML solution 5 mg 5 mg, Per J Tube, Every 6 hours scheduled, First dose on Thu01/31/25 at 0700, Until Discontinued, Routine Given 02/01/2025 12:16 PM EDT 5 mg Given 02/01/2025 5:04 AM EDT 5 mg Given 02/01/2025 12:06 AM EDT 5 mg omeprazole-sodium bicarbonate (Konvomep) 2-84 MG/ML suspension 40 [...] Given 01/28/2025 6:21 PM EDT 5 mg phenol (Chloraseptic) 1.4 % mouth/throat spray 1 spray 1 spray, Mouth/Throat, Every 2 hour PRN, sore throat, Instruct patient to spit out after 15 seconds., Starting on Thu01/27/25 at 1052 Given 01/29/2025 10:46 AM EDT 1 spray Given 01/28/2025 5:34 PM EDT 1 spray Given 01/28/2025 2:35 PM EDT 1 spray documented in this encounter Active and Recently Administered Medications Times are shown in EDT. Scheduled Medication Order 01/30/2025 01/31/2025 02/01/2025 acetylcysteine (Mucomyst) 20 % solution 4 mL 4 mL, Nebulization, 2 times daily, First dose on Thu01/26/25 at 1330, Until Discontinued, Routine 09 (Not Given - Provider: Jaymie Devine - Reason: Patient in procedure)2052 (Given - Provider: Bing Gonzalez) 08 (Given - Provider: Talya Veras)2023 (Given - Provider: Lindsey Malik) 0859 (Not Given - Provider: Viviana Merida - Reason: Patient/family refused) enoxaparin (Lovenox) syringe 40 mg 40 mg, Subcutaneous, Daily, First dose on Thu01/26/25 at 1200, Until Discontinued, Routine 0823 (Given [...] Reason: Patient/family refused)2356 (Given - Provider: René Cai, RN) 0504 (Given - Provider: René Cai, RN)1216 (Given - Provider: Micheline Linn) [...] refused) 0831 (Medication Applied - Provider: Marcial Lucia RN)2100 (Medication Removed - Provider: René Cai RN) 0845 (Not Given - Provider: Micheline Linn [...] Lucia RN) 0006 (Given - Provider: René Cai, RONY)0504 (Given - Provider: René Cai, RONY)1216 (Given - Provider: Micheline Linn) metoclopramide (Reglan) injection 5 mg (CANCELED) 5 mg, Intravenous, Every 6 hours scheduled, First dose on Thu01/27/25 at 1530, Until Discontinued, Routine 0610 (Given - Provider: Duong Savage RN)1205 (Given - Provider: Guerita Weiner RN)1707 (Given - Provider: Guerita Weiner RN)2357 (Given - Provider: René Cai, RONY) 0652 (Not Given - Provider: René Cai [...] Tube, Every 6 hours PRN, Starting on 01/30/25 at 0705, Until Thu02/01/25 at 1638, Routine, mild pain (1-3 on the numeric pain scale) 1955 (Given - Provider: René Cai RN) oxyCODONE (Roxicodone) 1 MG/ML solution 10 mg(Linked Group 1) 10 mg, Per J Tube, Every 4 hours PRN, Starting on Zohra 01/26/25 at 1238, Until Thu02/01/25 at 1638, Routine, severe pain (7-10 on the numeric pain scale) 0046 (Given - Provider: Duong Savage RN)2114 (Given - Provider: René Cai RN) 013 (Given - Provider: René Cai RN)140 (Given - Provider: Marcial Lucia RN)1818 (Given [...] 134 (See Alternative - Provider: René Cai RN)140 (See Alternative - Provider: Marcial Lucia RN)1818 [...] documented as of this encounter Care Teams Sustainable Design Coordinator Relationship Specialty Start Date End Date Caridad Oliver APRN [address] [place] [address] PCP - General 02/22/21 documented as of this encounter
--- OUTSIDE RECORDS SUMMARY | 2025-02-14 10:45 | XMS_ITS | Encounter Summary ---
Author Organization Healthcare Address [address] [place] [address] Care Team Providers Care Relay Technician Name Role Phone BenitoCaridad Gaby JIMENES Primary Care Provider [phone] Encounter Details Date Type Department Care Team (Latest Contact Info) Description 02/14/2025 10:45 AM EDT - 02/14/2025 11:59 PM EDT Hospital Encounter [facility] Radiology [address] [place] [address] Achalasia Discharge Disposition: Home or Self Care [...] any time in the past 12 m [facility], were you homeless or living in a senior care (including now)? No 01/26/2025 Utilities Answer Date [...] mL by mouth 2 times a day. 77662 mL 2 02/14/2025 5 Nutritional Supplements (isosource 1.5 Pastor/mL) 55 mL by Per J Tube route every 1 (one) hour. 02541 mL 5 01/19/2025 5 pantoprazole (Protonix) 40 [...] meals and at bedtime. 60 tablet 02/01/2025 acetaminophen (Tylenol) 160 MG/5ML solution Take 30 mL by mouth every 6 hours as needed (mild pain (1-3 on the numeric pain scale)) for up to 10 days. 120 mL 02/06/2025 documented as of this encounter Plan of Treatment Upcoming Encounters Date Type Department Care Team ([facility] st Contact Info) Description 08/31/2025 8:30 AM EST Appointment [facility] Radiology [address] [place] [address] 08/31/2025 9:30 AM EST Office Visit Pav CC Head, Neck & Respiratory [address] [facility], [address]nd [place] [address] Jeffery Devine, DO [address] [facility] [address] [place] [address] documented as of this encounter Goals Goal [...] documented as of this encounter Care Teams Relay Technician Relationship Specialty Start Date End Date Caridad Oliver, ROBOTYPE OPERATOR [address] [place] [address] PCP - General 02/22/21 documented as of this encounter
--- OUTSIDE RECORDS SUMMARY | 2025-02-14 11:20 | XMS_ITS | Encounter Summary ---
Author Organization Healthcare Address [address] [place] [address] Care Team Providers Care Honeycomb Blanket Maker Name Role Phone BenitoCaridad Gaby JIMENES Primary Care Provider [phone] Reason for Visit * Reason Comments Follow-up Encounter Details Date Type Department Care Team ([facility] Contact Info) Description 02/14/2025 11:20 AM EDT Office Visit Pav [facility] Head[facility] Neck & Respiratory [address] , [address] [place] [address] Stephanie Ray, PA [address] [place] [address] Achalasia (Primary Dx) Social History Tobacco Use Types Packs/Day Years Used Date Smoking Tobacco: Former Cigarettes 0.5 26.4 S tarted: 1998 Smokeless Tobacco: Never Tobacco [...] any time in the past 12 m [facility], were you homeless or living in [...] Ray PA - 02/14/2025 11:20 AM EDT [facility] Department of Surgery Section of [...] AM EST Appointment [facility] H Radiology [address] [place] [address] 08/31/2025 9:30 AM EST Office Visit Pav CC Head, Neck & Respiratory [address] [facility], [address]nd [place] [address] Jeffery Devine, DO [address] [facility] [address] [place] [phone] documented as of this encounter Goals Goal [...] documented as of this encounter Care Teams Honeycomb Blanket Maker Relationship Specialty Start Date End Date Caridad Oliver APRN [address] [place] [address] PCP - General 02/22/21 documented as of this encounter
--- OUTSIDE RECORDS SUMMARY | 2025-02-21 11:15 | XMS_ITS | Encounter Summary ---
Author Organization Healthcare Address [address] [place] [address] Care Team Providers Care Helper Electrical Name Role Phone BenitoCaridad Gaby JIMENES Primary Care Provider [phone] Reason for Visit * Reason Comments Follow-up Encounter Details Date Type Department Care Team ([facility] Contact Info) Description 02/21/2025 11:15 AM EDT Office Visit [facility] Res[facility] [address] , [address] [place] [address] Stephanie Ray, PA [address] [place] [address] Achalasia (Primary Dx) Social History Tobacco Use [...] any time in the past 12 m [facility], were you homeless or living [...] from the original note were not included. [facility] Department of Surgery Section of Thoracic [...] AM EST Appointment PAV H Radiology [address] [place] [address] 08/31/2025 9:30 AM EST Office Visit Pav [facility] Head[facility] Neck [facility] Respiratory 800 [facility], 2nd [place] [address] Jeffery Devine, [address] [address] documented as of this encounter Goals Goal [...] documented as of this encounter Care Teams Helper Electrical Relationship Specialty Start Date End Date Caridad Oliver APRN [address] [place] [address] PCP - General 02/22/21 documented as of this encounter
--- OUTSIDE RECORDS SUMMARY | 2025-03-02 10:30 | XMS_ITS | Encounter Summary ---
Author Organization Healthcare Address [address] [place] [address] Care Team Providers Care City Dispatch Supervisor Name Role Phone Benito Caridad Gaby JIMENES Primary Care Provider [phone] Reason for Visit * Reason Comments Follow-up Encounter Details Date Type Department Care Team ([facility] st Contact Info) Description 03/02/2025 10:30 AM EDT Office Visit [facility] Respiratory 800 [facility], 2nd [place] [address] Jeffery Devine, DO [address] [place] [address] Achalasia (Primary Dx) Social History Tobacco Use [...] time in the past [address] [facility], were you homeless or living in a chcf (including now)? No 01/26/2025 Utilities Answer Date [...] from the original note were not included. [facility] Department of Surgery Section of Thoracic Surgery Outpatient Clinic Note Diagnosis: End stage Achalasia Procedure: Heller myotomy and Naren fundoplication 2016; Bronch, EGD, Minimally Invasive Estelita esophagectomy, Lap J tube insertion 01/25/25 Interval History: Kavita iRvera is a 54 y.o. female with PMHx [...] Upcoming Encounters Date Type Department Care Team ([facility] st Contact Info) Description 08/31/2025 8:30 AM EST Appointment PAV H Radiology [address] [place] [address] 08/31/2025 9:30 AM EST Office Visit [facility] [address] [facility], [address]nd [place] [address] Jeffery Devine, DO [address] [address] Scheduled Orders Name Type Priority Associated Diagnoses [...] documented as of this encounter Care Teams City Dispatch Supervisor Relationship Specialty Start Date End Date Caridad Oliver APRN [address] [place] [address] PCP - General 02/22/21 documented as of this encounter
--- OUTSIDE RECORDS SUMMARY | 2025-03-02 11:00 | XMS_ITS ---
Author Organization [facility] Address [address] [place] [address] [facility] [address] [place] [address] Care Team Providers Care Audio/Visual Operator Name Role Phone Margarita Guerra Primary Care Provider Rogerio Mays [phone] Allergies Allergen (clinical drug ingredient) Drug/Non Drug [...] Signs Temperature 98.4 degrees Fahrenheit 03/02/20 25 Heart Rate 82 /min 03/02/2025 Blood pressure systolic 122 mm Hg 03/02/20 25 Blood pressure diastolic 80 mm Hg 025 Height 63 in 03/02/2025 Weight 158 lbs 03/02/2025 BMI 27.99 kg/m2 03/02/2025 Encounters Encounter Location Date Provider Diagnosis [address] [address] 03/02/2025 Rogerio Mays Urticaria L50.9 Assessments Encounter [...] CMP, ESR, CRP, C3, C4 and consider back strip machine operator referral Plan Of Treatment Medication Medication Name [...] CMP, ESR, CRP, C3, C4 and consider back strip machine operator referral Next Appt Details Follow Up: prn, Reason: Progress Notes * Kavita GARCIA LDOB:[birth year] (54 yo F)Acc No.[id number]:03/02/2025 Progress Notes Patient: Sunitha DUMONTKavita BUNDY Meena Provider: Sunitha Mays MD :1970 A ge:54 Y S ex:Female Date:03/02/2025 Address:[address] [place] [address], [facility], [id number] Pcp:Margarita Guerra Subjective: * Chief Complaints: * [...] 03/02/2025 Generated for Printi ng/Fadeborag/eTransmitting on: 0 03/22/2025 02:09 PM EDT History and Physical Notes * [...]
--- OUTSIDE RECORDS SUMMARY | 2025-03-16 08:13 | XMS_ITS ---
Author Organization Tyrel Mejía PE D SIMA Address [address] [facility] [address] [place] [address] Care Team Providers Care Bacteriologist Pharmaceutical Name Role Phone Margarita Guerra Primary Care Provider REASON FOR VISIT lab order Encounters Encounter Location Date Provider Diagnosis Tyrel PEPPER [facility] [address] [facility] [address] [place] [address] 03/16/2025 Margarita Guerra Visit for screening mammogram Z12.31 Assessments Encounter Date Diagnosis (ICD Code) Assessment Notes Treatment Notes Treatment Clinical Notes Section Notes 03/16/2025 Visit for screening mammogram (ICD-10 - Z12.31) Plan Of Treatment Pending Test Test Name Order Date Mammogram : Bilateral 03/16/2025 Progress Notes * Kavita GARCIA LDOB:[birth year] (54 yo F)Acc No.[id number]:03/16/2025 Patient: Kavita BURNETT :1970 A ge:54 Y S ex:Female Address:[address] [place] [address] [place]ELL, [place] [address] Subjective: * Chief Complaints: * L ab order * Medical History: * Surgical History: * Hospitalization/Major Diagno stic Procedure: * Medications: Objective: * Vitals: * Physical Examination: Assessment: * Assessment: 1. V isit for screening mammogram - Z12.31 Plan: * Treatment: * Procedure Codes: * true * Date: Generated for Kaushik gray/Earle/Jong on: 0 03/22/2025 02:09 PM EDT
--- OUTSIDE RECORDS SUMMARY | 2025-03-16 08:21 | XMS_ITS ---
Author Organization Tyrel Mejía IM PE D SIMA Address [address] [facility] 36 [facility] [address] [place] [address] Care Team Providers Care Product Safety Compliance Leader Name Role Phone Margarita Guerra Primary Care Provider REASON FOR VISIT lab work Encounters Encounter Location Date Provider Diagnosis Tyrel Mejía IM [facility] [address] [facility] [address] [place] [address] 03/16/2025 Margarita Guerra Chronic urticaria L50.8 Assessments [...] * Kavita GARCIA LDOB:[birth year] (54 yo F)Acc No.[id number]:03/16/2025 Patient: Kavita BURNETT :1970 A ge:54 Y S ex:Female Address:[address] [place] [address] LOWELL, Gaby [place] [address] Subjective: * Chief Complaints: * L ab work * Medical History: * Surgical History: * Hospitalization/Major Diagno stic Procedure: * Medications: Objective: * Vitals: * Physical Examination: Assessment: * Assessment: 1. C hronic urticaria - L50.8 (Primary) Plan: * Treatment: * Procedure Codes: * true * Date: Generated for Kaushik gray/Earle/Jong on: 0 03/22/2025 02:08 PM EDT
--- NOTE | 2025-03-22 14:05 | MM_ITS ---
PROCEDURE INFORMATION: Exam: MG Bilateral Screening 3D Mammography Exam date and time: 03/22/2025 2:10 PM Age: 54 years old Clinical indication: Screening examination TECHNIQUE: Imaging protocol: Bilateral Screening tomosynthesis and 2D mammography including computer-aided detection (CAD) when performed. COMPARISON: 1. MG MM DIG SCREENING MAMM BI W/CAD 06/06/2020 3:14 PM 2. MG SCBI MM Dig screening mamm BI w/CAD 03/29/2018 9:52 AM FINDINGS: MAMMOGRAPHY: Breast composition: There are scattered areas of fibroglandular density. Mass: None. Architectural distortion: None. Calcifications: No suspicious calcifications. Asymmetric density: None. Skin thickening: None. Axillary adenopathy: None. IMPRESSION: No mammographic evidence of malignancy. Annual screening is recommended unless otherwise clinically indicated. ASSESSMENT: BI-RADS Category 1: Negative.
--- OUTSIDE RECORDS SUMMARY | 2025-03-22 14:09 | XMS_ITS | Encounter Summary ---
Author Organization Healthcare Address [address] [place] [address] Care Team Providers Care Creasing Machine Operator Name Role Phone BenitoCaridad Gaby JIMENES Primary Care Provider [phone] Encounter Details Date Type Department Care Team ([facility] st Contact Info) Description 02/14/2025 Nutrition Pav CC Head, Neck & Respiratory [address] , [address] [place] [address] Stephy Devine, LOWELL Social History Tobacco Use Types Packs/Day Years [...] any time in the past 12 m [facility], were you homeless or [...] on file documented as of this encounter Miscellaneous Notes * Clinician Note - Stephy Devine, RD - 02/14/2025 1:18 PM EDT ONCOLOGY NUTRITION NOTE Patient Information Name: Kavita Rivera [id number] : 1970 Date of Service: 02/14/2025 Visit Type: Nutrition consult Referral source: [facility] Kavita Rivera is a 54 y.o. female who was referred to [facility] diet[facility] for oncology nutritioncounseling. Diagnosis Cancer Staging No matching staging information was found for the patient. Nutrition Assessment Anthropometrics: Wt Readings from Last 5 Encounters: 02/14/25 72.2 kg (159 lb 2.8 oz) 01/30/25 74.5 kg (164 lb 3.9 oz) 01/19/25 74 kg (163 lb 2.3 oz) 01/10/25 74.5 kg (164 lb 3.9 oz) 01/06/25 74.5 kg (164 lb 3.9 oz) Ht Readings from Last 1 Encounters: 04/21/25 1.6 m (5' 2.99 ) BMI Readings from Last 1 Encounters: 02/14/25 28.20 kg/m?? Biochemical: Lab Results Component Value Date RBC 3.60 (L) 02/01/2025 WBC 9.34 02/01/2025 HGB 10.3 (L) 02/01/2025 HCT 31.9 (L) 02/01/2025 PLT 259 02/01/2025 Lab Results Component Value Date GLUCOSE 98 02/01/2025 NA 140 02/01/2025 K 4.2 02/01/2025 CO2 25 02/01/2025 CL 104 02/01/2025 CALCIUM 8.7 (L) 02/01/2025 BUN 15 02/01/2025 CREATININE 0.56 (L) 02/01/2025 Lab Results Component Value Date PHOS 3.9 02/01/2025 MG 2.2 02/01/2025 Lab Results Component Value Date ALBUMIN 3.2 (L) 02/01/2025 PREALBUMIN 18.8 (L) 01/10/2025 Malnutrition Screening No data recorded (Malnutrition Risk - Low: 0-3, Moderate: 4-8, High: 9+) Nutrition History: Current nutrition includes full liquids and Isosource 1.5/day with goal rate of 55 ml/hr x 22 hr via J-tube. Pt established with LYNN ETIENNE. Last visit 01/19. Interval History: Pt with hx end stage achalasia s/p Heller myotomy and Naren fundoplication who is now s/p Estelita esophagectomy on 01/25/25. Referral for advancement to soft diet. Visited pt in clinic. She is excited to advance diet. She is unsure of what rate she is running tube feeds but states she is getting b/t 3-5 cartons/day. She is tolerating full liquids well. Nutrition Intervention Discussed decreasing number of cartons/day until pt is weaned off tube feeding over the next week. Discussed bland, lower-fat soft diet and provided handout. Encouraged 6-8 small frequent meals. Encouraged adequate protein intake for post-op healing. Encouraged to monitor wt and include oral supplements as needed if loss is present. Discussed dumping syndrome and how to avoid. Pt agreeable to Rx for Boost. Nutrition education provided: Post-Esophagectomy Diet handout Patient referred to [facility] by [facility] Dietitian. RD contact information was provided and pt was encouraged to contact with additional nutrition-related questions/concerns PRN. documented in this encounter Plan of Treatment Upcoming Encounters Date Type Department Care Team ([facility] st Contact Info) Description 08/31/2025 8:30 AM EST Appointment PAV H Radiology [address] [place] [address] 08/31/2025 9:30 AM EST Office Visit Pav CC Head, Neck & Respiratory [address] [facility], 2nd [place] [address] Jeffery Devine, DO [address] [facility] [address] [place] [address] documented as of this encounter Goals Goal Patient Goal Type Associated Problems Recent Progress Patient-Stated? Author Autogenerat ed Goal Care Plan Autogenerated Problem No Leticia Johnson A Autogenerat ed Goal Care Plan Autogenerated Problem No JohnsonLeticia documented as of this encounter Visit Diagnoses Not on filedocumented in this encounter Additional Health Concerns Active Problems Noted Date Diagnosed Date Autogenerated Problem 12/26/2024 Autogenerated Problem 01/11/2025 Assessment Noted Time A fall risk assessment has been complete d for the patient 02/14/2025 11:48 AM EDT A Body Mass Index follow-up plan has been documented for the patient 02/01/2025 12:51 PM EDT documented as of this encounter Care Teams Creasing Machine Operator Relationship Specialty Start Date End Date Caridad Oliver APRN [address] [place], [place] [id number] PCP - General 02/22/21 documented as of this encounter
--- OUTSIDE RECORDS SUMMARY | 2025-03-22 14:09 | XMS_ITS | Encounter Summary ---
Author Organization Healthcare Address [address] [place] [address] Care Team Providers Care Erp Technical Lead Name Role Phone BenitoCaridad Gaby JIMENES Primary Care Provider [phone] Encounter Details Date Type Department Care Team (Late st Contact Info) Description 03/17/2025 Telephone Pav CC Head, Neck & Respiratory [address] , [address] [place] [address] Corie West RN [facility] Social History Tobacco Use Types Packs/Day Years [...] time in the past 12 m [facility], were you homeless or living in a residential (including now)? No 01/26/2025 Utilities Answer Date [...] as of this encounter Miscellaneous Notes * Telephone Encounter - Corie Wset RN - 03/17/2025 1:07 PM EDT RN received call from patient concerning FMLA. Pt is currently set to return to work on 03/27. Pt endorses concern about incisions that are not completely healed at this time, and worries about returning to work without them being completely healed. 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 So pt is asking for FMLA to be extended a couple more weeks. RN stated pt will need to have paper work faxed to office again and can be filled out for pt to return to work on 04/10.If pt cannot return to work at that time, pt will likely need to be seen in clinic. Pt verbalized understanding and agreeable to plan. Pt also noted that she is having a third round of hives, that PCP believes is related to oxycodone that was taken inpatient. RN stated it is unlikely that it would be related to oxycodone taken during inpatient stay as it was over a month ago, but to continue following PCP rec's and testing to further investigate. Pt verbalized understanding and agreeable to plan. documented in this encounter Plan of Treatment Upcoming Encounters Date Type Department Care Team (Late st Contact Info) Description 08/31/2025 8:30 AM EST Appointment PAV H Radiology [address] [place] [address] 08/31/2025 9:30 AM EST Office Visit Pav CC Head, Neck & Respiratory [address] [facility], [address]nd [place] [address] Jeffery Devine, DO [address] [facility] [address] [place] [address] documented as of this encounter Goals Goal Patient Goal Type Associated Problems Recent Progress Patient-Stated? Author Autogenerat ed Goal Care Plan Autogenerated Problem No JohnsonLeticia A Autogenerat ed Goal Care Plan Autogenerated [...] documented as of this encounter Care Teams Erp Technical Lead Relationship Specialty Start Date End Date Caridad Oliver APRN [address] [place] [address] PCP - General 02/22/21 documented as of this encounter
--- OUTSIDE RECORDS SUMMARY | 2025-03-22 14:09 | XMS_ITS | Encounter Summary ---
Author Organization Healthcare Address [address] [place] [address] Care Team Providers Care Operations Manager Name Role Phone BenitoCaridad Gaby JIMENES Primary Care Provider [phone] Encounter Details Date Type Department Care Team (Latest Contact Info) Description 02/21/2025 Travel Social History Tobacco Use Types Packs/Day Years [...] time in the past 12 m [facility], were you homeless or living in a longterm (including now)? No 01/26/2025 Utilities Answer Date [...] on file documented as of this encounter Plan of Treatment Upcoming Encounters Date Type Department Care Team (Late st Contact Info) Description 08/31/2025 8:30 AM EST Appointment PAV H Radiology [address] [place] [address] 08/31/2025 9:30 AM EST Office Visit Pav CC Head, Neck & Respiratory [address] [facility], [address]nd [place] [address] Jeffery Devine, DO [address] [facility] [address] [place] [address] documented as of this encounter Goals Goal [...] documented as of this encounter Care Teams Operations Manager Relationship Specialty Start Date End Date Caridad Oliver APRN [address] [place] [address] PCP - General 02/22/21 documented as of this encounter
--- OUTSIDE RECORDS SUMMARY | 2025-03-22 14:09 | XMS_ITS | Encounter Summary ---
Author Organization Healthcare Address [address] [place] [address] Care Team Providers Care Hydro Generation Supervisor Name Role Phone BenitoCaridad Gaby JIMENES Primary Care Provider [phone] Encounter Details Date Type Department Care Team (Latest Contact Info) Description 02/14/2025 Travel Social History Tobacco Use Types Packs/Day [...] any time in the past 12 m [facility], were you homeless or living in a skilled nursing (including now)? No 01/26/2025 Utilities Answer Date [...] AM EST Appointment PAV H Radiology [address] [place] [address] 08/31/2025 9:30 AM EST Office Visit Pav CC Head, Neck & Respiratory [address] [facility], [address]nd [place] [address] Jeffery Devine, DO [address] [facility] [address] [place] [address] documented as of this encounter Goals Goal [...] documented as of this encounter Care Teams Hydro Generation Supervisor Relationship Specialty Start Date End Date Caridad Oliver APRN [address] [place] [address] PCP - General 02/22/21 documented as of this encounter
--- OUTSIDE RECORDS SUMMARY | 2025-03-22 14:09 | XMS_ITS | Encounter Summary ---
Author Organization Healthcare Address [address] [place] [address] Care Team Providers Care Infrastructure Solutions Architect Name Role Phone Benito Caridad Gaby JIMENES Primary Care Provider [phone] Encounter Details Date Type Department Care Team ([facility] st Contact Info) Description 02/20/2025 Telephone Pav CC Head, Neck & Respiratory [address] [facility], [address]nd [place] [address] Jeffery Devine, DO [address] [facility] [address] [place] [address] Social History Tobacco Use Types Packs/Day Years [...] the past 12 months has th e [employer], gas, oil, or water company threatened to shut off services in your home? No 01/26/2025 Comments No Sex and Gender Information Value Date Recorded Sex Assigned at Not on file Legal Sex Female 8:02 PM EDT Gender Identity Not on file Sexual Orientation Not on file documented as of this encounter Miscellaneous Notes * Telephone Encounter - Corie West RN - 02/20/2025 10:07 AM EDT RN LVM informing off appt with IKE Mcclure on 02/21 at 1115. RN encouraged a call back to officewith questions or concerns. * Telephone Encounter - Diana Ryan - 02/20/2025 9:30 AM EDT Patient Phone Message Reason for Call:Patient is wanting to talk to the nurse about getting her feeding tube out tomorrow. Best contact number and optimal time of day to reach caller:[phone] Note: Please do not reply to this message. Follow-up communication and further actions as a result of this message need to be communicated with the patient directly, if the patient is not active onMyChart. If the patient is active on MyChart, they will receive notification of the communication/outcome via MyChart. documented in this encounter Plan of Treatment Upcoming Encounters Date Type Department Care Team (Late st Contact Info) Description 08/31/2025 8:30 AM EST Appointment PAV H Radiology [address] [place] [address] 08/31/2025 9:30 AM EST Office Visit Pav CC Head, Neck & Respiratory [address] [facility], [address]nd [place] [address] Jeffery Devine, DO [address] [facility] [address] [place] [address] documented as of this encounter Goals Goal [...] documented as of this encounter Care Teams Infrastructure Solutions Architect Relationship Specialty Start Date End Date Caridad Oliver APRN [address] [place] [address] PCP - General 02/22/21 documented as of this encounter
--- OUTSIDE RECORDS SUMMARY | 2025-03-22 14:09 | XMS_ITS | Encounter Summary ---
Author Organization Healthcare Address [address] [place] [address] Care Team Providers Care Fusing Machine Operator Name Role Phone BenitoCaridad Gaby JIMENES Primary Care Provider [phone] Encounter Details Date Type Department Care Team ([facility] st Contact Info) Description 02/23/2025 Telephone Pav CC Head, Neck & Respiratory [address] , [address] [place] [address] Ivett Navarrete RN Social History Tobacco Use Types Packs/Day Years [...] any time in the past 12 m [facility], were you homeless or living in a prison (including now)? No 01/26/2025 Utilities Answer Date [...] encounter Miscellaneous Notes * Telephone Encounter - Ivett Navarrete RN - 02/23/2025 10:37 AM EDT RN spoke w/ pt. Pt reported waking up nauseated and she vomited quite a bit. Pt reported chills after vomiting but, no fever. Pt reported that she had eaten a lot the night before and ate pretty lateand felt like she ate too much. RN told pt that this is likely the reason that she felt nauseated and vomited. RN advised pt to eat smaller meals and not too eat too late/prior to going to bed. If symptoms continue after these adjustments are made, pt to call back. Pt verbalized understanding and agreeable to plan. documented in this encounter Plan of Treatment Upcoming Encounters Date Type Department Care Team (Late st Contact Info) Description 08/31/2025 8:30 AM EST Appointment [facility] Radiology [address] [place] [address] 08/31/2025 9:30 AM EST Office Visit Pav CC Head, Neck & Respiratory [address] [place] [address] Jeffery Devine, DO [address] [place] [address] documented as of this encounter Goals Goal [...] documented as of this encounter Care Teams Fusing Machine Operator Relationship Specialty Start Date End Date Caridad Oliver APRN [address] [place] [address] PCP - General 02/22/21 documented as of this encounter
--- OUTSIDE RECORDS SUMMARY | 2025-03-22 14:09 | XMS_ITS | Encounter Summary ---
Author Organization Healthcare Address [address] [place] [address] Care Team Providers Care Improvement Specialist Name Role Phone BenitoCaridad Gaby JIMENES Primary Care Provider [phone] Encounter Details Date Type Department Care Team (Latest Contact Info) Description 03/02/2025 Travel Social History Tobacco Use Types Packs/Day [...] any time in the past 12 m [facility], were you homeless or living in [...] AM EST Appointment PAV H Radiology [address] [place] [address] 08/31/2025 9:30 AM EST Office Visit Pav CC Head, Neck & Respiratory [address] [facility], [address]nd [place] [address] Jeffery Devine, DO [address] [facility] [address] [place] [address] documented as of this encounter Goals Goal [...] documented as of this encounter Care Teams Improvement Specialist Relationship Specialty Start Date End Date Caridad Oliver APRN [address] [place] [address] PCP - General 02/22/21 documented as of this encounter
--- OUTSIDE RECORDS SUMMARY | 2025-03-22 14:10 | XMS_ITS | Encounter Summary ---
Author Organization Healthcare Address [address] [place] [address] Care Team Providers Care Heel Molder Name Role Phone BenitoCaridad Gaby JIMENES Primary Care Provider [phone] Reason for Visit * Reason Onset Date Comments Med Refill 02/06/2025 Encounter Details Date Type Department Care Team (Late st Contact Info) Description 02/06/2025 Refill [facility] [address] [facility], 2nd [place] [address] Jeffery Devine, DO [address] [facility] [address] [place] [address] Social History Tobacco Use Types Packs/Day Years [...] time in the past 12 m [facility], were you homeless or living in a [...] AM EST Appointment P[facility] H Radiology [address] [place] [address] 08/31/2025 9:30 AM EST Office Visit Pav [facility] Head[facility] Respiratory [address] [facility], [address]nd [place] [address] Jfefery Devine, DO [address] [facility] [address] [place] [address] documented as of this encounter Goals Goal Patient Goal Type Associated Problems Recent Progress Patient-Stated? Author Autogenerat ed Goal Care Plan Autogenerated Problem No Leticia Johnson Autogenerat ed Goal Care Plan Autogenerated Problem No Leticia Johnson A documented as of this encounter Visit Diagnoses [...] documented as of this encounter Care Teams Heel Molder Relationship Specialty Start Date End Date Caridad Oliver APRN [address] [place] [address] PCP - General 02/22/21 documented as of this encounter
--- OUTSIDE RECORDS SUMMARY | 2025-03-22 14:10 | XMS_ITS | Encounter Summary ---
Author Organization Healthcare Address [address] [place] [address] Care Team Providers Care Trolley Coach Driver Name Role Phone BenitoCaridad Gaby JIMENES Primary Care Provider [phone] Encounter Details Date Type Department Care Team (Latest Contact Info) Description 01/29/2025 Travel Social History Tobacco Use Types Packs/Day [...] time in the past 12 m [facility], were you homeless or living in a [facility] (including now)? No 01/26/2025 Utilities Answer Date [...] Date of Assessment Author No Risk Indicated 01/29/2025 8:01 PM EDT Duong Savage, RN * Question Answer Date of Assessment Author 1. Wish to be (Past 1 Month) No 025 8:01 PM EDT Duong Savage, RN 2. Non-Specific Active Suici fauzia Thoughts (Past 1 Month) No 01/29/2025 8:01 PM EDT Jihan Savage, RN 6. Suicidal Behavior (Lifetime) No 8:01 PM EDT Duong Savage, RN documented as of this encounter Plan of Treatment Upcoming Encounters Date Type Department Care Team (Late st Contact Info) Description 08/31/2025 8:30 AM EST Appointment [facility] H Radiology [address] [place] [phone] 08/31/2025 9:30 AM EST Office Visit Pav [facility] Head[facility] Neck & Respiratory 800 [facility], [address]nd [place] [address] Jeffery Devine, DO [address] [facility] [address] [place] [phone] documented as of this encounter Goals Goal [...] documented as of this encounter Care Teams Trolley Coach Driver Relationship Specialty Start Date End Date Caridad Oliver APRN [address] [place] [address] PCP - General 02/22/21 documented as of this encounter
--- OUTSIDE RECORDS SUMMARY | 2025-03-22 14:10 | XMS_ITS | Encounter Summary ---
Author Organization Healthcare Address [address] [place] [address] Care Team Providers Care Technical Sales Representatives Name Role Phone BenitoCaridad Gaby JIMENES Primary Care Provider [phone] Encounter Details Date Type Department Care Team (Latest Contact Info) Description 01/25/2025 Travel Social History Tobacco Use Types Packs/Day [...] time in the past 12 m [facility], were you homeless or living in [...] Author No Risk Indicated 01/25/2025 8:00 PM EDT Gaby Edmond RN * Question Answer Date of Assessment Author 1. Wish to be (Past 1 Month) No 025 8:00 PM YOLANDAT Gracie Edmond, RONY 2. Non-Specific Active Suici fauzia Thoughts (Past 1 Month) No 01/25/2025 8:00 PM EDT Gracie Edmond, RN 6. Suicidal Behavior (Lifetime) No 8:00 PM EDT Gracie Edmond RN documented as of this encounter Plan of Treatment Upcoming Encounters Date Type Department Care Team (Late st Contact Info) Description 08/31/2025 8:30 AM EST Appointment [facility] H Radiology [address] [place] [phone] 08/31/2025 9:30 AM EST Office Visit Pav [facility] Head[facility] Neck & Respiratory 800 [facility], [address]nd [place] [address] Jeffery Devine, DO 800 [facility] [address] [place] [address] documented as of this encounter Goals Goal [...] as of this encounter Care Teams Technical Sales Representatives Relationship Specialty Start Date End Date Cairdad Oliver APRN [address] [place] [address] PCP - General 02/22/21 documented as of this encounter
--- OUTSIDE RECORDS SUMMARY | 2025-03-22 14:10 | XMS_ITS | Encounter Summary ---
Author Organization Healthcare Address [address] [place] [address] Care Team Providers Care Expressive Therapist Name Role Phone BenitoCaridad Gaby JIMENES Primary Care Provider [phone] Encounter Details Date Type Department Care Team (Latest Contact Info) Description 01/26/2025 Travel Social History Tobacco Use Types Packs/Day [...] any time in the past 12 m [facility], were you homeless or living in a alf (including now)? No 01/26/2025 Utilities Answer Date [...] Date of Assessment Author No Risk Indicated 01/26/2025 8:00 PM EDT Lindsey Baer RN * Question Answer Date of Assessment Author 1. Wish to be (Past 1 Month) No 025 8:00 PM EDT Lindsey Baer, RN 2. Non-Specific Active Suici fauzia Thoughts (Past 1 Month) No 01/26/2025 8:00 PM EDT Lindsey Baer, RN 6. Suicidal Behavior (Lifetime) No 8:00 PM EDT Lindsey Baer RN documented as of this encounter Plan of Treatment Upcoming Encounters Date Type Department Care Team (Late st Contact Info) Description 08/31/2025 8:30 AM EST Appointment [facility] H Radiology [address] [place] [phone] 08/31/2025 9:30 AM EST Office Visit [facility] Head[facility] Neck [facility] Respiratory 800 [facility], 2nd [place] [address] Jeffery Devine, DO 800 [facility] 1[address] [place] [address] documented as of this encounter Goals Goal [...] documented as of this encounter Care Teams Expressive Therapist Relationship Specialty Start Date End Date Caridad Oliver APRN [address] [place] [address] PCP - General 02/22/21 documented as of this encounter
--- OUTSIDE RECORDS SUMMARY | 2025-03-22 14:10 | XMS_ITS | Encounter Summary ---
Author Organization Healthcare Address [address] [place] [address] Care Team Providers Care Piano Instructor Name Role Phone BenitoCaridad Gaby JIMENES Primary Care Provider [phone] Encounter Details Date Type Department Care Team (Latest Contact Info) Description 01/27/2025 Travel Social History Tobacco Use Types Packs/Day [...] Date of Assessment Author No Risk Indicated 01/27/2025 9:00 PM EDT Duong Savage, RN * Question Answer Date of Assessment Author 1. Wish to be (Past 1 Month) No 025 9:00 PM EDT Duong Savage, RN 2. Non-Specific Active Suici fauzia Thoughts (Past 1 Month) No 01/27/2025 9:00 PM EDT Jihan Savage, RN 6. Suicidal Behavior (Lifetime) No 9:00 PM EDT Duong Savage, RN documented as of this encounter Plan of Treatment Upcoming Encounters Date Type Department Care Team (Late st Contact Info) Description 08/31/2025 8:30 AM EST Appointment [facility] H Radiology [address] [place] [phone] 08/31/2025 9:30 AM EST Office Visit Pav [facility] Head[facility] Neck [facility] Respiratory 800 [facility], 2nd [place] [address] Jeffery Devine, DO 800 [facility] [address] [place] [address] documented as of this encounter Goals Goal [...] documented as of this encounter Care Teams Piano Instructor Relationship Specialty Start Date End Date Caridad Oliver APRN [address] [place] [address] PCP - General 02/22/21 documented as of this encounter
--- OUTSIDE RECORDS SUMMARY | 2025-03-22 14:10 | XMS_ITS | Encounter Summary ---
Author Organization Healthcare Address [address] [place] [address] Care Team Providers Care Breaker Up Machine Operator Name Role Phone BenitoCaridad Gaby JIMENES Primary Care Provider [phone] Encounter Details Date Type Department Care Team (Latest Contact Info) Description 01/28/2025 Travel Social History Tobacco Use Types Packs/Day [...] any time in the past 12 m [facility], were you homeless or living in a f[facility] (including now)? No 01/26/2025 Utilities Answer Date [...] Date of Assessment Author No Risk Indicated 01/28/2025 8:01 PM EDT Duong Savage, RN * Question Answer Date of Assessment Author 1. Wish to be (Past 1 Month) No 025 8:01 PM EDT Duong Savage, RN 2. Non-Specific Active Suici fauzia Thoughts (Past 1 Month) No 01/28/2025 8:01 PM EDT Jihan Savage, RN 6. Suicidal Behavior (Lifetime) No 8:01 PM EDT Duong Savage, RN documented as of this encounter Plan of Treatment Upcoming Encounters Date Type Department Care Team (Late st Contact Info) Description 08/31/2025 8:30 AM EST Appointment [facility] H Radiology [address] [place] [phone] 08/31/2025 9:30 AM EST Office Visit [facility] Head[facility] Neck [facility] Respiratory 800 [facility], 2nd [place] [address] Jeffery Devine, DO 800 [facility] 1[address] [place] [phone] documented as of this encounter Goals Goal [...] documented as of this encounter Care Teams Breaker Up Machine Operator Relationship Specialty Start Date End Date Caridad Oliver APRN [address] [place] [address] PCP - General 02/22/21 documented as of this encounter
--- OUTSIDE RECORDS SUMMARY | 2025-03-22 14:10 | XMS_ITS | Encounter Summary ---
Author Organization Healthcare Address [address] [place] [address] Care Team Providers Care Tube Sizer Operator Name Role Phone BenitoCaridad Gaby JIMENES Primary Care Provider [phone] Encounter Details Date Type Department Care Team (Late st Contact Info) Description 02/07/2025 Telephone Pav [facility] Res[facility] [address] , [address] [place] [address] Corie West RN [facility] Social History Tobacco [...] time in the past 12 m [facility], were you homeless or living in a [...] Telephone Encounter - Corie West RN - 02/07/2025 9:12 AM EDT RN received call from pt stating that she took her oxycodone last night around 9pm and a couple hours later became very itchy. RN asked if pt was having any SOB, pt denied this. RN discussed with PA.RN informed pt to get OTC benedryl and follow instructions on box. If pt cannot find liquid form, RN encouraged pt to discuss with pharmacist. Pt verbalized understanding and agreeable to plan. documented in this encounter Plan of Treatment Upcoming Encounters Date Type Department Care Team (Late st Contact Info) Description 08/31/2025 8:30 AM EST Appointment P[facility] H Radiology [address] [place] [address] 08/31/2025 9:30 AM EST Office Visit Pav [facility] Head[facility] Neck [facility] Respiratory 800 [facility], [address]nd [place] [address] Jeffery Devine D, DO 800 [facility] [address] [place] [address] documented as of this encounter Goals Goal [...] documented as of this encounter Care Teams Tube Sizer Operator Relationship Specialty Start Date End Date Caridad Oliver APRN [address] [place] [address] PCP - General 02/22/21 documented as of this encounter
--- OUTSIDE RECORDS SUMMARY | 2025-03-22 14:10 | XMS_ITS | Encounter Summary ---
Author Organization Healthcare Address [address] [place] [address] Care Team Providers Care Pipe Fitter Supervisor Name Role Phone BenitoCaridad Gaby JIMENES Primary Care Provider [phone] Encounter Details Date Type Department Care Team (Latest Contact Info) Description 01/30/2025 Travel Social History Tobacco Use Types Packs/Day [...] any time in the past 12 m [facility], were you homeless or living in [...] AM EST Appointment P[facility] H Radiology [address] [place] [address] 08/31/2025 9:30 AM EST Office Visit Pav [facility] Head[facility] Neck [facility] Respiratory 800 [facility], [address]nd [place] [address] Jeffery Devine, DO 800 [facility] [address] [place] [address] documented as of this encounter Goals Goal [...] documented as of this encounter Care Teams Pipe Fitter Supervisor Relationship Specialty Start Date End Date Caridad Oliver APRN [address] [place] [address] PCP - General 02/22/21 documented as of this encounter
--- OUTSIDE RECORDS SUMMARY | 2025-03-22 14:10 | XMS_ITS | Encounter Summary ---
Author Organization Healthcare Address [address] [place] [address] Care Team Providers Care Crusher Setter Name Role Phone Benito Caridad Gaby JIMENES Primary Care Provider [phone] Encounter Details Date Type Department Care Team ([facility] st Contact Info) Description 02/14/2025 Telephone Pav [facility] Head[facility] Neck [facility] Respiratory 800 [facility], [address]nd [place] [address] Jeffery Devine, DO 800 [facility] [address] [place] [phone] Social History Tobacco Use Types Packs/Day Years [...] in the past [address] [facility], were you homeless or living in a [...] encounter Miscellaneous Notes * Telephone Encounter - Marilu Gunn RN - 02/14/2025 9:21 AM EDT RN spoke with patient. Patient stated that her dog ripped out a stitch over the weekend. She went to an urgent care where they did an xray and confirmed that her feeding tube looked okay. Patient stated that last night she developed pain and burning when she moves at her feeding tube site. Patient also stated that she developed hives about a week ago that have not gone away. Patient has an appt scheduled with Dr. Devine on 02/16. RN messaged Corie West RN and Ivett Navarrete RN to see if patient could be seen today by an [facility]. They stated that patient could be seen today with a chest xray. RNcalled to let patient know. Patient was very appreciative and said she would be on her way. * Telephone Encounter - Corie Bridges - 02/14/2025 8:02 AM EDT Patient Phone Message Reason for Call: Pt requested a call back from RN please Best contact number and optimal time of day to reach caller: [phone] Note: Please do not reply to this message. Follow-up communication and further actions as a result of this message need to be communicated with the patient directly, if the patient is not active onMyChart. If the patient is active on MyChart, they will receive notification of the communication/outcome via [employer]. documented in this encounter Plan of Treatment Upcoming Encounters Date Type Department Care Team ([facility] st Contact Info) Description 08/31/2025 8:30 AM EST Appointment P[facility] H Radiology [address] [place] [address] 08/31/2025 9:30 AM EST Office Visit Pav [facility] Head[facility] Neck [facility] Respiratory 800 [facility], [address] [place] [address] Jeffery Devine, DO 800 [facility] [address] [place] [address] documented as of this encounter Goals Goal [...] documented as of this encounter Care Teams Crusher Setter Relationship Specialty Start Date End Date Caridad Oliver, RECREATION COUNSELOR [address] [place] [address] PCP - General 02/22/21 documented as of this encounter
--- OUTSIDE RECORDS SUMMARY | 2025-03-22 14:10 | XMS_ITS | Patient Health Record ---
Author Organization [facility] Address [address] [place] [address] Care Team Providers Care Window Caser Name Role Phone Mari Margarita Primary Care Provider [phone] Rogerio Mays Unavailable [phone] Leonora Hansen Unavailable [phone] Migration, Provider Unavailable Unavailable Allergies Allergen (clinical drug ingredient) Drug/Non Drug Allergy documented on EMR Reaction Allergy Type Onset Date Status codeine Codeine Unknown Drug Allergy Active oxycodone oxyCODONE hives Drug Allergy Active Results Component Value Reference Range Notes X ray : Chest Reviewed date:01/05/2025 02:31:14 PM Interpretation: Performing Lab: Notes/Report: Rapid Covid/Flu A-B Combo Reviewed date:01/03/2025 01:33:10 PM Interpretation: Performing Lab: Notes/Report: Rapid Covid neg Flu A neg Flu B neg Rapid Covid/Flu A-B Combo Reviewed date:09/13/2024 09:21:23 PM Interpretation: Performing Lab: Notes/Report: Rapid Covid neg Flu A neg Flu B neg M-Complete Blood Count Auto Diff Reviewed date:10/14/2024 03:28:07 PM Interpretation: Performing Lab: Notes/Report: WBC 10.0 4.8-10.8 K/mm3 RBC 4.40 4.20-5.40 M/mm3 HGB 13.0 12.2-16.2 g/dL HCT 39.2 37.0-47.0 % MCV 89.1 81-99 fl MCH 29.5 27.0-31.2 pg MCHC 33.2 31.8-35.4 g/dL RDW 12.8 11.5-17.5 % PLT 294 142-424 K/mm3 MPV 10.1 7.4-10.4 fl NE% 74.3 37.0-80.0 % LY% 19.7 10-50 % MO% 5.4 1.7-9.3 % EO% 0.0 0.1-12.0 % BA% 0.2 0.1-2.0 % NE# 7.5 1.8-7.8 K/mm3 LY# 2.0 0.7-4.5 K/mm3 MO# 0.5 0.1-1.0 K/mm3 EO# 0.0 0.0-0.4 K/mm3 BA# 0.0 0-0.2 K/mm3 M-Comprehensive Metabolic Pa shai Reviewed date:10/14/2024 03:28:08 PM Interpretation: Performing Lab: Notes/Report: NA 140 136-145 mmol/L K 4.3 3.5-5.1 mmoL/L CL 107 98-107 mmol/L CO2 28 22.0-30.0 mmol/L GAP 9.3 5-15 mEq/L BUN 12 7-17 mg/dl CREATT 0.80 0.52-1.04 mg/dl GFRAA 91 >60 ML/MIN EGFR 75 >60 ml/min GLU 96 74-100 mg/dl CA 9.5 8.4-10.2 mg/dl BILIT 1.1 0.2-1.3 mg/dl AST 26 14-36 U/L ALT 17 12-78 U/L TP 6.4 6.3-8.2 g/dl ALB 3.8 3.5-5.0 g/dl GLOB 2.6 1.3-3.2 g/dL AGRATIO 1.5 1.1-1.8 ALP 84 38-126 U/L M-Magnesium Reviewed date:10/14/2024 03:28:08 PM Interpretation: Performing Lab: Notes/Report: MG 2.2 1.6-2.3 mg/dl X ray : Chest Reviewed date:10/17/2024 11:58:56 AM Interpretation: Performing Lab: Notes/Report: Rapid Covid/Flu A-B Combo Reviewed date:11/25/2024 03:27:14 PM Interpretation: Performing Lab: Notes/Report: Rapid Covid neg Flu A neg Flu B neg Rapid Covid/Flu A-B Combo Reviewed date:10/03/2024 06:22:04 PM Interpretation: Performing Lab: Notes/Report: Rapid Covid neg Flu A pos Flu B neg Rapid Covid/Flu A-B Combo Reviewed date:07/29/2024 01:19:43 PM Interpretation: Performing Lab: Notes/Report: Rapid Covid neg Flu A neg Flu B neg M-BUN & Creatinine Reviewed date:02/13/2025 09:36:29 AM Interpretation: Performing Lab: Notes/Report: BUN 21 7-17 mg/dl CREATT 0.70 0.52-1.04 mg/dl GFRAA 106 >60 ML/MIN EGFR 88 >60 ml/min X ray : KUB Reviewed date:02/14/2025 03:55:01 PM Interpretation: Performing Lab: Notes/Report: X ray : KUB Reviewed date:02/14/2025 03:55:01 PM Interpretation: Performing Lab: Notes/Report: Medications Medication SIG (Take, Route, Frequency, Duration) Notes Start Date End Date Status B-12 2500 MCG 1 tab(s) sublingually once a day for 30 day(s) Active ALBUTEROL (EQV-PROVENTIL HFA) 90 MCG/INH 1 INHALED EVERY 4 HOURS PRN for 30 DAYS *Please review for potential replacement for e-prescription and drug interaction check* 12/25/2022 Active Fexofenadine HCl 180 MG 1 tablet Swallow whole with water; do not take with fruit juices. Orally twice a day for 30 days 03/02/2025 Active Benadryl Allergy 25 MG as directed Orally Active predniSONE 20 MG 3 tabs orally once a day for two days, then 2 daily for 2 days, then one daily for two days for 6 day(s) 03/02/2025 Active hydrOXYzine HCl 25 MG 1 tablet as needed Orally every 8 hours for 30 days 02/08/2025 Active Famotidine 40 MG 1 tablet Orally Once a day for 30 days 02/08/2025 Active Flonase Allergy Relief 50 MCG/ACT 2 spray(s) intranasally once a day for 30 days 07/13/2021 Active valACYclovir HCl 500 MG 1 tab(s) orally 3 times a day for 5 days prn 10/03/2024 Active Lexapro 10 MG 1 tab(s) orally once a day for 90 days Active Problems Problem Type SNOMED Code ICD Code Onset Dates Problem Status W/U Status Risk Notes Problem 408442288149511 Unilateral prima ry osteoarthritis, left knee (M17.12) Active confirmed Problem 32732129 Anxiety (F41.9) Active confirmed Problem 999011394 Hypertriglycerid emia (E78.1) Active confirmed Problem 627183302 GERD without esophagitis (K21.9) Active confirmed Problem 575265089 Seasonal allergi es (J30.2) Active confirmed Problem 447169686 GERD with esopha gitis (K21.0) Active confirmed Problem 294462459 Morbid obesity d ue to excess calories (E66.01) Active confirmed Problem 152553820 Chronic insomnia (F51.04) Active confirmed Problem 3778086 Fever blister (B00.1) Active confirmed Problem 18983499 Dysthymia (F34.1) Active confirmed Problem 701688126 Rosacea (L71.9) Active confirmed Problem 271340742 Endometriosis (N80.9) Active confirme d Problem 404785946 Acute left-sided low back pain with left-sided sciatica (M54.42) Active confirmed Problem 3954561 Tonsillith (J35.8) Active confirmed Problem 179584061 MRSA (methicilli n resistant Staphylococcus aureus) (A49.02) Active confirmed Problem 45885649848347210 Carpal tunnel syndrome on both sides (G56.03) Active confirmed Problem 728554870 Surgical menopau se (E89.40) Active confirmed Problem 08959015770838010 Carpal tunnel syndrome, bilateral (G56.03) Active confirmed Problem 23400642 Esophageal dysph agia (R13.10) Active confirmed Problem 17184336 Acute allergic rhinitis (J30.9) Active confirmed Problem 110729707 S/P percutaneous endoscopic gastrostomy (PEG) tube placement (Z93.1) Active confirmed Problem 10552800 Achalasia (K22.0) Active confirmed Problem 515014750863972 Class 1 obesity (E66.9) Active confirmed Problem 9707154 Spondylosis (M47.9) Active confirmed Problem 016598018 Jejunostomy tube present (Z93.4) Active confirmed Problem 844435222 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) Active confirmed Vital Signs Heart Rate 82 /min 03/02/2025 Temperature 98.4 degrees Fahrenheit 03/02/2025 Blood pressure diastolic 80 mm Hg 03/02/2025 Height 63 in 03/02/2025 Blood pressure systolic 122 mm Hg 03/02/2025 Weight 158 lbs 03/02/2025 BMI 27.99 kg/m2 03/02/2025 Encounters Encounter Location Date Provider Diagnosis [facility] [address] [place], [place] [address] 01/14/2025 Provider Migration [facility] [place] [address] [address] 06/23/2024 Rogerio Mays Allergic conjunctivitis, bilateral H10.13 [facility] [place] [address] [address] 07/29/2024 Margarita McNees Cough R05.9 and Viral URI J06.9 [facility] [address] [place] [address] 08/13/2024 Margarita McJesses COVID-19 U07.1 [facility] [address] [address] 09/13/2024 Rogerio Masy Acute cough R05.1 and Acute non-recurrent maxillary sinusitis J01.00 [facility] [address] [place] [address] 10/03/2024 Leonora Jade Fever in adult R50.9 ; Influenza A J10.1 and Fever blister B00.1 [facility] [address] [place] [address] 10/14/2024 Rogerio Treson Subacute cough R05.2 ; Acute febrile illness R50.9 ; Other malaise R53.81 and Other fatigue R53.83 [facility] [place] [address] [address] 11/25/2024 Margarita McNees Subacute cough R05.2 and Viral URI J06.9 [facility] [address] [place] [address] 12/05/2024 Leonora Hansen Acute non-recurrent maxillary sinusitis J01.00 ; Persistent cough R05.3 and Achalasia K22.0 [facility] [address] [place] [address] 01/03/2025 Leonora Hansen Acute cough R05.1 and History of pulmonary aspiration Z87.09 [facility] [place] [address] [place] [address] 02/08/2025 Leonora Hansen Urticaria L50.9 [facility] [address] [place] [address] 02/11/2025 Margarita McNees Jejunostomy tube present Z93.4 [facility] [place] [address] [place] [address] 03/02/2025 Rogerio Besson Urticaria L50.9 [facility] [place] [address] [place] [address] 08/02/2024 Margarita Hayeses Screening mammogram for breast cancer Z12.31 [facility] [place] [address] [place] [address] 08/02/2024 Margarita McNees [facility] [place] [address] [place] [address] 08/19/2024 Margarita McNees [facility] [place] [address] [place] [address] 09/27/2024 Rogerio Besson [facility] [place] [address] [place] [address] 10/17/2024 Rogerio Besson Shortness of breath R06.02 and Cough in adult R05.9 [facility] [address] [place] [address] 12/28/2024 Margarita McNees Fever blister B00.1 [facility] [address] [place] [address] 01/03/2025 Leonora Hansen [facility] [address] [place] [address] 03/16/2025 Margarita Guerra Visit for screening mammogram Z12.31 [facility] [address] [place] [address] 03/16/2025 Margarita Guerra Chronic urticaria L50.8 Assessments Encounter Date Diagnosis (ICD Code) Assessment Notes Treatment Notes Treatment Clinical Notes Section Notes 06/23/2024 Allergic conjunctivitis, bilateral (ICD-10 - H10.13) Recommended baby shampoo rinses and then Pataday OTC. If no improvement in a couple weeks with this would recommend going back to optometry 07/29/2024 Viral URI (ICD-10 - J06.9) Reassurance. Discussed the etiology & expected course of a viral URI and discussed the rationale for not prescribing antibiotics. Continue supportive care with PRN antipyretics, appropriate OTC cough/cold meds,, cough drops, and humidifier. Encourage PO hydration. Discussed the signs and symptoms of worsening condition and need for reassessment in clinic or ED. Keep previously scheduled physical exam or f/u sooner PRN. 07/29/2024 Cough (ICD-10 - R05.9) 08/02/2024 Screening mammogram for breast cancer (ICD-10 - Z12.31) 08/13/2024 COVID-19 (ICD-10 - U07.1) Discussed importance of pulmonary toilet and hydration. OTC medications for symptom management reviewed. Discussed reasons to seek care in clinic or ED (worsening cough, shortness of breath, high fever not responding to treatment, inability to tolerate typical PO intake). Also recommended self-quarantine at home per CDC guidelines. 09/13/2024 Acute non-recurrent maxillary sinusitis (ICD-10 - J01.00) Probable viral. COVID and flu testing negative. Discussed criteria to call back for antibiotics. Dexamethasone injection for short-term relief. Note for work for the next couple of days 09/13/2024 Acute cough (ICD-10 - R05.1) 10/03/2024 Influenza A (ICD-10 - J10.1) Discussed mechanism of action of Tamiflu, discussed its side effect profile and warning signs of serious side effects and discussed need for hydration, discussed fever control, discussed length of illness, discussed contagious aspects of disease and need for avoidance of fragile or medically susceptible individuals. School and work note provided. 10/03/2024 Fever in adult (ICD-10 - R50.9) 12/05/2024 Persistent cough (ICD-10 - R05.3) likely r/t chronic aspiration/achala vinod, surgery is scheduled at as noted. return precautions reviewed 01/03/2025 Acute cough (ICD-10 - R05.1) 01/03/2025 History of pulmonary aspiration (ICD-10 - Z87.09) Recommend imaging as noted given her history and upcoming surgery, treatment based on results 02/08/2025 Urticaria (ICD-10 - L50.9) likely secondary to oxycodone. dexamethasone IM today as noted, oral histamine blockers as noted, avoid overheating and encouraged to keep skin moist/cool. Strict return precautions reviewed. 02/11/2025 Jejunostomy tube present (ICD-10 - Z93.4) Sent to radiology for KUB with 30ml oral contrast injected through j-tube immediately prior to scan. X-ray confirmed j-tube is in place and there was no contrast leakage. Resume feedings and j-tube care as previously advised 03/02/2025 Urticaria (ICD-10 - L50.9) -Approaching chronic [...] CMP, ESR, CRP, C3, C4 and consider [facility] 03/16/2025 Visit for screening mammogram (ICD-10 - Z12.31) 03/16/2025 Chronic urticaria (ICD-10 - L50.8) 10/14/2024 Acute febrile illness (ICD-10 - R50.9) Please note I have ordered labs and I will review all labs and x-ray reports personally. 10/14/2024 Subacute cough (ICD-10 - R05.2) Given persistent and recurrent symptoms will check chest x-ray and labs as noted below because of her fatigue and her slightly low blood pressure. Encouraged hydration. Azithromycin and Medrol pack for coverage of sinus and inflammation as respectively. 10/17/2024 Shortness of breath (ICD-10 - R06.02) 10/17/2024 Cough in adult (ICD-10 - R05.9) 11/25/2024 Viral URI (ICD-10 - J06.9) Reassurance. Discussed the etiology & expected course of a viral URI and discussed the rationale for not prescribing antibiotics. Continue supportive care with PRN antipyretics, appropriate OTC cough/cold meds, nasal saline rinses, cough drops, and humidifier. Encourage PO hydration. Discussed the signs and symptoms of worsening condition and need for reassessment in clinic or ED. 11/25/2024 Subacute cough (ICD-10 - R05.2) 12/05/2024 Acute non-recurrent maxillary sinusitis (ICD-10 - J01.00) 12/28/2024 Fever blister (ICD-10 - B00.1) 12/05/2024 Achalasia (ICD-10 - K22.0) 10/14/2024 Other malaise (ICD-10 - R53.81) 10/03/2024 Fever blister (ICD-10 - B00.1) 10/14/2024 Other fatigue (ICD-10 - R53.83) Plan Of Treatment Pending Test Test Name Order Date Ultrasound : Right Upper Quadrant 2013 Ultrasound : Abdomen 11/09/2006 CT Scan : Chest, Without Contrast 2024 Urinalysis 08/23/2007 X ray : Spines, Cervical 12/17/2020 Cardiac GXT 09/01/2013 EKG : In House 01/13/2013 Physical Therapy 07/19/2019 Physical Therapy 12/26/2020 Physical Therapy 12/26/2020 Mammogram : Bilateral 08/02/2024 Mammogram : Bilateral 03/16/2025 N-CBC with diff 08/04/2012 H-VITAMIN B12 04/25/2016 H-CMP 04/25/2016 H-LIPID PANEL 04/28/2016 H-TSH 04/25/2016 H-VIT D, 25-HYDROXY 04/25/2016 H-HEPATITIS PROFILE (CHRONIC) 04/25/2016 C-CBC 05/09/2014 C-CMP 05/09/2014 C-LIPID PANEL 05/09/2014 C-LIPID PANEL 04/28/2016 C-TSH 05/09/2014 C-VITAMIN B12 05/09/2014 C-MISC CULTURE 05/23/2020 N-H pylori antigen 08/04/2012 Pulmonary Function Test- Complete 2024 M-Complete Blood Count Auto Diff 020 M-Comprehensive Metabolic Panel 05/21/20 20 M-Vitamin B12 06/22/2021 M-Vitamin D 25 Hydroxy 06/22/2021 Rapid Covid Antigen 10/25/2021 COMP METABOLIC PANEL 03/16/2025 C-REACTIVE PROTEIN 03/16/2025 LIPID PANEL 12/03/2023 THYROID STIMULATING HORMONE 12/03/2023 CBC AUTO W DIFF 12/03/2023 CBC AUTO W DIFF 03/16/2025 SEDIMENTATION RATE 03/16/2025 MOHIT COMPREHENSIVE PLUS PROFILE COMPLEMENT TOTAL (CH50) 03/16/2025 COMPLEMENT C3 03/16/2025 COMPLEMENT C4 03/16/2025 Insurance Providers Payer Name Payer Address Payer Phone Subscriber Number Group Number Insured Name Patient Relationship to Insured Coverage Start Date Coverage End Date [facility] [id number] [place] [address] [id number] Kavita Rivera Self - patient is the insured Medications Administered Medication Instructions Date of Administration Dosage Notes Cyanocobalamin/B-12 Pt's Own Medication 06/28/2021 1 mL Cyanocobalamin/B-12 Pt's Own Medication 07/05/2021 1 mL Cyanocobalamin/B-12 Pt's Own Medication 07/12/2021 1 mL Cyanocobalamin/B-12 Pt's Own Medication 07/19/2021 1 mL Cyanocobalamin/B-12 Pt's Own Medication 07/26/2021 1 mL Cyanocobalamin/B-12 Pt's Own Medication 08/02/2021 1 mL Cyanocobalamin/B-12 Pt's Own Medication 08/09/2021 1 mL Cyanocobalamin/B-12 Pt's Own Medication 08/16/2021 1 mL Dexamethasone 4mg Injection 06/22/2021 4 mg Dexamethasone 4mg Injection 10/25/2021 4 mg Dexamethasone 4mg Injection 05/02/2022 4 mg Dexamethasone 4mg Injection 12/23/2022 4 mg Dexamethasone 4mg Injection 08/13/2024 4 mg Kenalog 40mg 03/10/2018 40 mg Triamcinolone Acetonide 40mg Injection 08/24/2018 1 mL Triamcinolone Acetonide 40mg Injection 09/17/2018 1 mL Kenalog 01/01/2015 1 Triamcinolone Acetonide 40mg Injection 04/08/2021 1 mL Triamcinolone Acetonide 40mg Injection 08/18/2020 1 mL Triamcinolone Acetonide 40mg Injection 01/06/2019 1 mL Triamcinolone Acetonide 40mg Injection 05/21/2018 1 mL Dexamethasone 4mg Injection 02/08/2025 4 mg Dexamethasone 4mg Injection 11/25/2024 4 mg Dexamethasone 4mg Injection 09/13/2024 4 mg Dexamethasone 4mg Injection 07/29/2024 4 mg Dexamethasone 4mg Injection 11/23/2023 4 mg Dexamethasone 4mg Injection 08/21/2023 4 mg Dexamethasone 4mg Injection 08/11/2022 4 mg Medical (General) History Medical History History ICD Code BTL 2001 GERD w/ esophagitis Depression with anxiety Esophageal Stricture Cervical DDD Elevated LFTs Uterine fibroids Seasonal environmental allergies Endometriosis pneumonia 2022 Achalasia Surgical History Surgery Date(Month/Year) hysterectomy tubal ligation oopherectomy carpal tunnel (luz elena) EGD with esophageal dilation 2015 endometriosis-cauterization 06/2018 Appendectomy 11/05/2018 rt underarm 03/2020 removal of abcess from lt hip 05/2020 esophagus stretched 01/2021 carpal tunnel surgery-lt wrist 01/2021 esophagus removed 01/25/2025 Hospitalization History Reason Date(Month/Year) - esophagus removal 01/25- above
--- OUTSIDE RECORDS SUMMARY | 2025-03-22 14:10 | XMS_ITS | Encounter Summary ---
Author Organization Healthcare Address [address] [place] [address] Care Team Providers Care Nuclear Powerplant Mechanic Helper Name Role Phone BenitoCaridad Gaby JIMENES Primary Care Provider [phone] Encounter Details Date Type Department Care Team (Latest Contact Info) Description 01/31/2025 Travel Social History Tobacco Use Types Packs/Day [...] any time in the past 12 m [facility], were you homeless or living in a [...] Month) No 025 8:00 AM EDT Marcial Lucia, RN 2. Non-Specific Active Suici fauzia Thoughts (Past 1 Month) No 01/31/2025 8:00 AM YOLANDAT Marcial Lucia , RN 6. Suicidal Behavior (Lifetime) No 8:00 AM EDT Marcial Lucia RN documented as of this encounter Plan of Treatment Upcoming Encounters Date Type Department Care Team (Late st Contact Info) Description 08/31/2025 8:30 AM EST Appointment [facility] [address] [place] [address] 08/31/2025 9:30 AM EST Office Visit [facility] [address] [facility], 2nd [place] [address] Jeffery Devine, DO [address] [facility] 1[address] [place] [address] documented as of this encounter Goals Goal [...] documented as of this encounter Care Teams Nuclear Powerplant Mechanic Helper Relationship Specialty Start Date End Date Caridad Oliver APRN [address] [place] [address] PCP - General 02/22/21 documented as of this encounter
--- OUTSIDE RECORDS SUMMARY | 2025-03-22 14:10 | XMS_ITS | Encounter Summary ---
Author Organization Healthcare Address [address] [place] [address] Care Team Providers Care Archivist Economic History Name Role Phone BenitoCaridad Gaby JIMENES Primary Care Provider [phone] Encounter Details Date Type Department Care Team (Latest Contact Info) Description 01/24/2025 Travel Social History Tobacco Use Types Packs/Day Years Used Date Smoking Tobacco: Former Cigarettes 0.5 26.4 S tarted: 1998 Smokeless Tobacco: Never Alcohol Use Standard Drinks/Week Comments Never 0 (1 standard drink = 0.6 oz pur e alcohol) Humiliation, Afraid, Rape, and Kick questionnair e Answer Date Recorded Within the last year, have y ou been afraid of your partner or ex-partner? No 01/10/2025 Within the last year, have y ou been humiliated or emotionally abused in other ways by your partner or ex-partner? No Within the last year, have y ou been kicked, hit, slapped, or otherwise physically hurt by your partner or ex-partner? No 01/10/2025 Within the last year, have y ou been raped or forced to have any kind of sexual activity by your partner or ex-partner? No 01/10/2025 Hunger Vital Sign Answer Date Recorded Within the past 12 months, y ou worried that your food would run out before you got the money to buy more. Never true 01/11/20 25 Within the past 12 months, t he food you bought just didn't last and you didn't have money to get more. Never true 01/10/2025 PRAPARE - Transportation Answer Date Re corded In the past 12 months, has l ack of transportation kept you from medical appointments or from getting medications? No 0410/2024 In the past 12 months, has l ack of transportation kept you from meetings, work, or from getting things needed for daily living? No 01/10/2025 Housing Stability Vital Sign Answer Chin e Recorded In the last 12 months, was t here a time when you were not able to pay the mortgage or rent on time? No 01/10/2025 Number of Times Moved in the Last Year Not on fi le 01/10/2025 At any time in the past 12 m [facility], were you homeless or living in a longterm (including now)? No 01/10/2025 Utilities Answer Date Recorded In the past 12 months has th e electric, gas, oil, or water company threatened to shut off services in your home? No 01/10/2025 Comments No Sex and Gender Information Value Date Recorded Sex Assigned at Not on file Legal Sex Female 8:02 PM EDT Gender Identity Not on file Sexual Orientation Not on file documented as of this encounter Plan of Treatment Upcoming Encounters Date Type Department Care Team (Late st Contact Info) Description 08/31/2025 8:30 AM EST Appointment [facility] [address] [place] [address] 08/31/2025 9:30 AM EST Office Visit [facility] [address] [facility], [address]nd [place] [address] Jeffery Devine, DO [address] [facility] [address] [place] [address] documented as of this encounter Goals Goal [...] plan has been documented for the patient 01/20/2025 1:28 PM EDT documented as of this encounter Care Teams Archivist Economic History Relationship Specialty Start Date End Date Caridad Oliver APRN [address] [place] [address] PCP - General 02/22/21 documented as of this encounter
--- OUTSIDE RECORDS SUMMARY | 2025-03-22 14:11 | XMS_ITS | Referral Summary ---
Author Organization [facility] Address [address] [place] [address] Care Team Providers Care Fabrication Inspector Name Role Phone Leonora Hansen APRN Primary Care Provider + [phone] Allergies Active Allergy Reactions Criticality Noted Date Comments Codeine Nausea And Vomiting 03/27/2016 Other reaction(s): GI Upset, Other: See Comments tremors Medications albuterol HFA (VENTOLIN HFA) 90 mcg/actuation inhaler 1 puff every 4 (four) hours as needed. 12/25/2022 Active cetirizine (ZyrTEC) 10 MG tablet Take 1 tablet (10 mg total) by mouth daily as needed. 12/29/2022 Active escitalopram oxalate (LEXAPRO) 10 MG tablet Take 1 tablet (10 mg total) by mouth in the morning. 12/19/2022 Active fenofibrate (TRICOR) 145 MG tablet Take 1 tablet (145 mg total) by mouth. Active Social History Tobacco Use Types Packs/Day Years Used Date Smoking Tobacco: Former Cigarettes Passive Smoke Exposure: Past Smokeless Tobacco: Never Tobacco Cessation:Counseling Given: Not Answered Interpersonal Safety Answer Date Record ed Family or friends hurt you Not on file 10/30 Family or friends insult you Not on file Family or friends threaten you Not on file 0 10/30/2023 Family or friends scream or curse at you Not on file 10/30/2023 Housing Stability Answer Date Recorded Living situation today Not on file Living situation problems Not on file 2023 Food Insecurity Answer Date Recorded Food run out past 12 months Not on file 10/12 Food did not last past 12 months Not on file 10/30/2023 Employment Answer Date Recorded Help finding and keeping a job Not on file 0 10/30/2023 Family and Community Support Answer Chin e Recorded Help with Day to Day Activities Not on file 10/30/2023 Feeling Lonely or Isolated Not on file 10/30 Educational Attainment Answer Date Dangelo rded Speak language other than Greenlandic at home Not on file 10/30/2023 Want help with school or training Not on file 10/30/2023 Depression Answer Date Recorded PHQ-2 Risk Not on file 10/30/2023 Disabilities Answer Date Recorded Difficulty concentrating Not on file 024 Difficulty doing errands alone Not on file 0 10/30/2023 Substance Use Answer Date Recorded Used prescription meds for non-medical reasons N ot on file 10/30/2023 Used illegal drugs past 12 months Not on file 10/30/2023 Comments No Sex and Gender Information Value Date Recorded Sex Assigned at Not on file Legal Sex Female 5:16 PM CDT Gender Identity Not on file Sexual Orientation Not on file Last Filed Vital Signs Vital Sign Reading Time Taken Comments Blood Pressure 154/69 06/12/2023 10:32 AM EDT Pulse 76 06/12/2023 10:32 AM EDT Temperature 36.5 C (97.7 F) 06/12/2023 9:57 AM EDT Respiratory Rate 16 06/12/2023 10:32 AM EDT Oxygen Saturation 98% 06/12/2023 10:32 AM EDT Inhaled Oxygen Concentration - - Weight 73.9 kg (163 lb) 06/12/2023 9:23 AM EDT Height 160 cm (5' 3 ) 06/12/2023 9:23 AM EDT Body Mass Index 28.87 06/12/2023 9:23 AM EDT Plan of Treatment Not on file Insurance BLUE CROSS/BLUE SHIELD Care Teams Fabrication Inspector Relationship Specialty Start Date End Date Leonora Hansen, ROAD INSPECTOR [address] [place] [address] PCP - General Nurse Practitioner 06/03/23
--- OUTSIDE RECORDS SUMMARY | 2025-03-22 14:11 | XMS_ITS | Encounter Summary ---
Author Organization Healthcare Address [address] [place] [address] Care Team Providers Care Dot Compliance Coordinator Name Role Phone Caridad Oliver JALIL Primary Care Provider [phone] Encounter Details Date Type Department Care Team (Late st Contact Info) Description 11/04/2022 Community [facility] Community Practice [address] [place] [address] Leonora Hansen, HAND RIGGER [address] [place] [address] Hiatal hernia (Primary Dx) Social History Tobacco Use Types Packs/Day Years Used Date Smoking Tobacco: Never Assessed Comments Unknown Sex and Gender Information Value Date Recorded Sex Assigned at Not on file Legal Sex Female 8:02 PM EDT Gender Identity Not on file Sexual Orientation Not on file documented as of this encounter Plan of Treatment Upcoming Encounters Date Type Department Care Team (Late st Contact Info) Description 08/31/2025 8:30 AM EST Appointment [facility] Radiology [address] [place] [address] 08/31/2025 9:30 AM EST Office Visit Pav [facility] Respiratory [address] [facility], 2nd [place] [phone] Jeffery Devine, DO [address] [facility] 1st [place] [phone] documented as of this encounter Visit Diagnoses Diagnosis Hiatal hernia- Primary Diaphragmatic hernia without mention of obstruction or gangrene documented in this encounter Additional Health Concerns Infection Onset Date Last Indicated Resolved Time C. difficile Rule-Out 01/27/2025 01/27/20252024 12:12 AM EDT documented as of this encounter Care Teams Dot Compliance Coordinator Relationship Specialty Start Date End Date Caridad Oliver APRN [address] [place] [address] PCP - General 02/22/21 documented as of this encounter
--- OUTSIDE RECORDS SUMMARY | 2025-03-22 14:11 | XMS_ITS | Encounter Summary ---
Author Organization Healthcare Address [address] [place] [address] Care Team Providers Care Ditch Rider Name Role Phone BenitoCaridad Gaby JIMENES Primary Care Provider [phone] Encounter Details Date Type Department Care Team (Latest Contact Info) Description 02/01/2025 Travel Social History Tobacco Use Types Packs/Day [...] any time in the past 12 m [facility], were you homeless or living in a correction (including now)? No 01/26/2025 Utilities Answer Date [...] AM EST Appointment [facility] Radiology [address] [place] [address] 08/31/2025 9:30 AM EST Office Visit Pav [facility] Head, Neck & Respiratory [address] [facility], [address]nd [place] [address] Jeffery Devine, DO [address] [facility] [address] [place] [address] documented as of this encounter Goals Goal [...] documented as of this encounter Care Teams Ditch Rider Relationship Specialty Start Date End Date Caridad Oliver APRN [address] [place] [address] PCP - General 02/22/21 documented as of this encounter
--- OUTSIDE RECORDS SUMMARY | 2025-03-22 14:11 | XMS_ITS | Encounter Summary ---
Author Organization [facility] [employer] Address [address] [place] [address] Care Team Providers Care Botany Technician Name Role Phone Leonora Hansen APRN Primary Care Provider + [phone] Encounter Details Date Type Department Care Team (Late st Contact Info) Description 12/22/2018 Transcribed Document [facility] Family Medicine [address] [place] [address] ProviderJj MD [address] [place], [place] [address] Social History Tobacco Use Types Packs/Day Years Used Date Smoking Tobacco: Never Assessed Comments Unknown Sex and Gender Information Value Date Recorded Sex Assigned at Not on file Legal Sex Female 5:16 PM CDT Gender Identity Not on file Sexual Orientation Not on file documented as of this encounter Miscellaneous Notes * Cerner Conversion Note - Jj ProviderMD - 12/22/2018 8:39 AM CDT [facility] PACU Summary Primary Physician: GARCIA SAHNI MD-GAE Finalized Date/Time: 12/22/18 09:15:10 Pt. Name: JOSE CANDIDO Stuart.O.B./Sex: 1970 Female Med Rec #: [id number] Physician: GARCIA SAHNI MD-GAE Financial #: [id number] Pt. Type: O [facility]: [facility]/ Admit/Disch: 12/22/18 07:03:00 - Institution: [facility] PACU Case Times Entry 1 In PACU I 12/22/18 08:50:00 Ready for PACU 12/22/18 09:15:00 Discharge Discharge from PACU 12/22/18 09:16:00 I [facility] PACU Case Times Audit 12/22/18 09:15:05 Relief Master: MELVAJ Modifier: [email or web address] 1 <*> Ready for PACU Discharge 12/22/18 09:14:00 1 <+> Discharge from PACU I 12/22/18 09:14:58 Relief Master: [email or web address] Modifier: [email or web address] <+> 1 Ready for PACU Discharge 12/22/18 08:49:43 Relief Master: [id number] Modifier: [email or web address] <+> 1 In PACU I 12/22/18 07:44:00 Relief Master: [id number] Modifier: [id number] 1 <-> In PACU I 12/22/18 07:12:00 1 <-> Ready for PACU Discharge 12/22/18 07:43:00 1 <-> Discharge from PACU I 12/22/18 07:43:00 Finalized By: CATRACHITO PAZ, RN Document Signatures Signed By: CATRACHITO PAZ RN 12/22/18 09:15 documented in this encounter Plan of Treatment Not on file documented as of this encounter Visit Diagnoses Not on filedocumented in this encounter Care Teams Botany Technician Relationship Specialty Start Date End Date Leonora Hansen, RESIDENTIAL LIVING ASSISTANT [address] [place] [id number] PCP - General Nurse Practitioner 06/03/23 documented as of this encounter
--- OUTSIDE RECORDS SUMMARY | 2025-03-22 14:11 | XMS_ITS | Encounter Summary ---
Author Organization Healthcare Address [address] [place] [address] Care Team Providers Care Pump Erector Helper Name Role Phone BenitoCaridad Gaby JIMENES Primary Care Provider [phone] Encounter Details Date Type Department Care Team (Late Contact Info) Description 01/05/2021 Orders Only External Location [address] [place] [address] Provider, External Social History Tobacco Use Types Packs/Day Years Used Date Smoking Tobacco: Never Assessed Comments Unknown Sex and Gender Information Value Date Recorded Sex Assigned at Not on file Legal Sex Female 8:02 PM EDT Gender Identity Not on file Sexual Orientation Not on file documented as of this encounter Plan of Treatment Upcoming Encounters Date Type Department Care Team (Late Contact Info) Description 08/31/2025 8:30 AM EST Appointment [facility] Radiology [address] [place] [address] 08/31/2025 9:30 AM EST Office Visit Pav [facility] Head, Neck & Respiratory 800 [facility], 2nd [place] [address] Jeffery Devine, DO [address] [address] documented as of this encounter Procedures Procedure Name Priority Date/Time Associated Diagnosis Comments CT ANGIO CHEST 01/05/2021 9:05 PM EDT documented in this encounter Results * CT Angio Chest (01/05/2021 9:05 PM EDT) Anatomical Region Laterality Modality Chest Computed Tomogra phy 01/05/2021 9:05 PM EDT us External Provider IMG CT PROCEDURES Final Result documented in this encounter Visit Diagnoses Not on filedocumented in this encounter Additional Health Concerns Infection Onset Date Last Indicated Resolved Time C. difficile Rule-Out 01/27/2025 01/27/20252024 12:12 AM EDT documented as of this encounter Care Teams Pump Erector Helper Relationship Specialty Start Date End Date Caridad Oliver, JALIL [address] [place] [address] PCP - General 02/22/21 documented as of this encounter
--- OUTSIDE RECORDS SUMMARY | 2025-03-22 14:11 | XMS_ITS | Encounter Summary ---
Author Organization [employer] [employer] Address [address] [place] [address] Care Team Providers Care Dam Attendant Name Role Phone Leonora Hansen APRN Primary Care Provider + [phone] Encounter Details Date Type Department Care Team (Late st Contact Info) Description 12/22/2018 Transcribed Document [facility] Family Medicine [address] [place] [address] ProviderJj MD [address] [place], [place] [address] Social History Tobacco Use Types Packs/Day Years Used Date Smoking Tobacco: Never Assessed Comments Unknown Sex and Gender Information Value Date Recorded Sex Assigned at Not on file Legal Sex Female 5:16 PM CDT Gender Identity Not on file Sexual Orientation Not on file documented as of this encounter Miscellaneous Notes * Cerner Conversion Note - Jj ProviderMD - 12/22/2018 8:39 AM CDT [facility] Summary Primary Physician: GARCIA SAHNI MD-GAE Finalized Date/Time: 12/22/18 08:48:24 Pt. Name: POLO GARCIASID Robledo /Sex: 1970 Female Med Rec #: [id number] Physician: GARCIA SAHNI MD-GAE Financial #: [id number] Pt. Type: O Room/Bed: [facility]/ Admit/Disch: 12/22/18 07:03:00 - Institution: [facility] - Case Attendance Entry 1 Entry 2 Entry 3 Case Attendee GARCIA SAHNI MD-GAE Bicknell, Ashley, RN MYLENE DEL ANGEL CRNA Role Performed Surgeon/Proceduralist, Control Engineer, First STEEL TIER/Nurse Bisque Cleaner First Time In 12/22/18 08:36:00 12/22/18 08:25:00 12/22/18 08:25:00 Time Out 12/22/18 08:49:00 12/22/18 08:49:00 12/22/18 08:49:00 Procedure Esophagogastroduodenosco Esophagogastroduodenosco Esophagogastroduodenosco py, Gastric Biopsy, py, Gastric Biopsy, py, Gastric Biopsy, Gastric Polypectomy Gastric Polypectomy Gastric Polypectomy Other Attendee Superficial Wound Closed By: Last Modified By: Didi Shah, Didi Miles, Didi Miles, RONY 12/22/18 08:47:28 12/22/18 08:47:28 12/22/18 08:47:28 Entry 4 Case Attendee BREONNA BEASLEY Role Performed Scrub, First Time In 12/22/18 08:25:00 Time Out 12/22/18 08:49:00 Procedure Esophagogastroduodenosco py, Gastric Biopsy, Gastric Polypectomy Other Attendee Superficial Wound Closed By: Last Modified By: Didi Shah, RONY 12/22/18 08:47:28 [facility] Endo - Case Attendance Audit 12/22/18 08:47:28 Marble Mechanic Helper: BICBHARATEA Modifier: BICKNEA 1 <+> Time Out 1 <*> Procedure Esophagogastroduodenoscopy, Gastric Biopsy, Gastric Polypectomy 2 <+> Time Out 2 <*> Procedure Esophagogastroduodenoscopy, Gastric Biopsy, Gastric Polypectomy 3 <+> Time Out 3 <*> Procedure Esophagogastroduodenoscopy, Gastric Biopsy, Gastric Polypectomy 4 <+> Time Out 4 <*> Procedure Esophagogastroduodenoscopy, Gastric Biopsy, Gastric Polypectomy 12/22/18 08:43:21 Marble Mechanic Helper: BICBHARATEA Modifier: BICKNEA 1 <*> Procedure Esophagogastroduodenoscopy, Gastric Biopsy 2 <*> Procedure Esophagogastroduodenoscopy, Gastric Biopsy 3 <*> Procedure Esophagogastroduodenoscopy, Gastric Biopsy 4 <*> Procedure Esophagogastroduodenoscopy, Gastric Biopsy 12/22/18 08:41:18 Marble Mechanic Helper: LAZAROEA Modifier: BICKNEA 1 <*> Procedure Esophagogastroduodenoscopy 2 <*> Procedure Esophagogastroduodenoscopy 3 <*> Procedure Esophagogastroduodenoscopy 4 <*> Procedure Esophagogastroduodenoscopy 12/22/18 08:36:11 Marble Mechanic Helper: SISSYKNEA Modifier: BICKNEA 1 <*> Time In 12/22/18 08:25:00 1 <*> Procedure Esophagogastroduodenoscopy 12/22/18 08:26:03 Marble Mechanic Helper: SISSYKNEA Modifier: BICKNEA <+> 1 Procedure 2 <*> Procedure Esophagogastroduodenoscopy 3 <*> Procedure Esophagogastroduodenoscopy 4 <*> Procedure Esophagogastroduodenoscopy [facility] - Case Times Entry 1 Patient In Room Time 12/22/18 08:25:00 Out Room Time 12/22/18 08:49:00 Anesthesia Start Time 12/22/18 08:25:00 Stop Time 12/22/18 08:47:00 Anesthesia Ready 12/22/18 08:25:00 Surgery / Procedure Times Start Time 12/22/18 08:39:00 Stop Time 12/22/18 08:47:00 Last Modified By: Didi Shah RN 12/22/18 08:25:07 [facility] - Case Times Audit 12/22/18 08:47:24 Marble Mechanic Helper: LAZAROEA Modifier: BICKNEA <+> 1 Out Room Time <+> 1 Stop Time <+> 1 Stop Time 12/22/18 08:39:14 Marble Mechanic Helper: SISSYKNEA Modifier: BICKNEA <+> 1 Start Time [facility] - Cultures and Spec Summary Entry 1 Cultrures and Specimens Specimen Ordered: Yes Specimens Types Pathology Specimen(s) Labeled Lab and Sent to Last Modified By: Didi Shah RN 12/22/18 08:42:56 General Comments: alber test, gastric biopsy, gastric polyp [facility] - Delays Entry 1 Delay Reason Other Duration 0 Minute(s) Comment NO DELAY Last Modified By: Didi Shah RN 12/22/18 08:25:42 [facility] - Departure from OR Entry 1 Integumentary Assessment Integumentary WDL Assessment WDL Transfer/Handoff Transfer to PACU Phase I Handoff Reported to CATRACHITO PAZ RN Post-op Transport Stretcher/Gurney Via Patient Transport Didi Shah RN, Accompanied by MYLENE DEL ANGEL CRNA Last Modified By: Didi Shah RN 12/22/18 08:25:54 [facility] - Endoscopy Details Entry 1 Abdomen Procedure Soft, Non-Tender Assessment Procedure Abdomen 12/22/18 08:25:00 Assessment D/T Radio Frequency Ablation Last Modified By: Didi Shah RN 12/22/18 08:26:01 [facility] Endo - Fire Risk Assessment Entry 1 Fire Info Surgical Site or 1- Yes Incision Above the Xyphoid Open O2 Source 1- Yes (Mask or Cannula) Available Ignition 1- Yes (ESU, Laser, Light Source) Fire Risk 3 Assessment Score Fire Score Fire Risk Yes Assessment Complete Fire Risk Didi Shah RN Assessment Verified By Fire Risk 12/22/18 08:26:00 Assessment Verified Date/Time Fire Risk High Risk Protocol Yes Implemented Standard Fire Yes Safety Precautions Followed Last Modified By: Didi Shah RN 12/22/18 08:26:07 [facility] Endo - General Case Snaker Driving Horses 1 Case Information OR Endo 02 [facility] Case Level 1 Room Verified Yes Wound Class II - Clean-Contaminated Specialty SN Gastroenterology Anesthesia Type MAC ASA Class 2 Diagnosis Preop Diagnosis gerd Postop Same As Preop No Postop Diagnosis gastric polyp, gastritis, esophagitis Last Modified By: Didi Shah RN 12/22/18 08:26:23 [facility] Endo - General Case Data Audit 12/22/18 08:48:22 Marble Mechanic Helper: LAZAROEA Modifier: BICKNEA 1 <*> Postop Diagnosis gastric polyp 12/22/18 08:47:18 Marble Mechanic Helper: RUSSELL Modifier: BICKNEA <+> 1 Postop Diagnosis [facility] Endo - Intraoperative Assessment Entry 1 Valid History / Yes Physical in Chart Preoperative Yes Checklist Reviewed/Evaluated Allergies Reviewed Yes Patient is Latex No Sensitive Level of WDL Consciousness (WDL = Alert, Oriented to Person, Place, and Time) Present Upon IVs, ECG monitored Arrival to OR Last Modified By: Didi Shah RN 12/22/18 08:26:29 [facility] - Intraoperative Equipment Entry 1 Type Scope Equipment Intraop Monitoring Electrocardiogram Three lead placement (ECG) Electrode Placement Blood Pressure Arm, left upper Location Pulse Oximeter Hand, right Probe Site Antiembolic Devices Scopes Flexible Endoscopes Gastroscope Used Scope Serial 2466 Number/Identificatio n Number Photo/Video Documentation Photo Yes Video No Last Modified By: Didi Shah RN 12/22/18 08:26:41 [facility] - Patient Positioning Entry 1 Procedure Esophagogastroduodenosco py, Gastric Biopsy, Gastric Polypectomy Body Position Lateral, right side up Left Arm Position Resting at side Right Arm Position Resting at side Left Leg Position Other Right Leg Position Other Position Comments Right leg over left leg uncrossed Feet Uncrossed Yes Pressure Points Yes Checked Positioned By Didi Shah RN, MYLENE DEL ANGEL CRNA Position Verified Positioning Yes Verified by Anesthesia Positioning Yes Verified by Surgeon Last Modified By: Didi Shah RN 12/22/18 08:26:51 [facility] - Patient Positioning Audit 12/22/18 08:43:22 Marble Mechanic Helper: BICKNEA Modifier: BICKNEA 1 <*> Procedure Esophagogastroduodenoscopy, Gastric Biopsy 12/22/18 08:41:20 Marble Mechanic Helper: BICKNEA Modifier: BICKNEA 1 <*> Procedure Esophagogastroduodenoscopy [facility] - Sign In Entry 1 Patient, Site, Yes Procedure Identified Surgical Consent Yes Confirmed Relevant Surgical Yes Documents Available Surgical Site N/A Marked by person performing procedure Allergies Yes Airway Hypothermia Risk No Warming Measures No Taken Last Modified By: Didi Shah RN 12/22/18 08:27:02 [facility] - Sign Out Entry 1 RN Confirmation Surgical Yes Procedure(s) Identified Instrument, Sponge N/A and Sharps Counts Correct/Documented Equipment Problems N/A Documented Specimen Labeled Yes Correctly Urinary Catheter N/A Documented in IView Safety Checklist Yes Elements Complete? RN Sign Out Didi Shah, RONY Signature RN Sign Out 12/22/18 08:49:00 Signature Date/Time Plan of Care Outcome - Fire Risk OUTCOME STATEMENT: Goal met Patient is free from injury related to surgical fire Plan of Care Outcome - Pt Positioning OUTCOME STATEMENT: Goal met Absence of signs and symptoms of positioning injury. Plan of Care Outcome - Skin Prep OUTCOME STATEMENT: Goal met Intraoperative care is consistent with measures to prevent infection Plan of Care Outcome - Xray/Images OUTCOME STATEMENT: N/A Absence of observable signs or symptoms of radiation injury Plan of Care Outcome - Counts OUTCOME STATEMENT: N/A Absence of signs and symptoms of injury related to extraneous objects Last Modified By: Didi Shah RN 12/22/18 08:47:43 [facility] Endo - Surgical Procedures Entry 1 Entry 2 Entry 3 Procedure Esophagogastroduodenosco Gastric Biopsy Gastric Polypectomy py Modifiers Additional Procedure Description Primary Procedure Yes No No Primary Surgeon GARCIA SAHNI MD-GAE HAAS, LAURIE, MD-GAE HAAS, LAURIE, MD-GAE Start 12/22/18 08:39:00 12/22/18 08:39:00 12/22/18 08:39:00 Stop 12/22/18 08:47:00 12/22/18 08:47:00 12/22/18 08:47:00 Physician States Cecum Reached Anesthesia Type MAC MAC MAC Specialty SN Gastroenterology SN Gastroenterology SN Gastroenterology Wound Class II - Clean-Contaminated II - Clean-Contaminated II - Clean-Contaminated Last Modified By: Didi Shah, Didi Miles, Didi Miles RN 12/22/18 08:26:02 12/22/18 08:41:15 12/22/18 08:43:18 [facility] Endo - Surgical Procedures Audit 12/22/18 08:47:32 Marble Mechanic Helper: BICKNEA Modifier: BICKNEA <+> 2 Stop <+> 3 Stop 12/22/18 08:47:31 Marble Mechanic Helper: BICKNEA Modifier: BICKNEA <+> 1 Stop 12/22/18 08:43:18 Marble Mechanic Helper: BICKNEA Modifier: BICKNEA <+> 3 Procedure <+> 3 Primary Procedure <+> 3 Primary Surgeon <+> 3 Specialty <+> 3 Start <+> 3 Wound Class <+> 3 Anesthesia Type 12/22/18 08:41:15 Marble Mechanic Helper: BICKNEA Modifier: BICKNEA <+> 1 Start <+> 2 Procedure <+> 2 Primary Procedure <+> 2 Primary Surgeon <+> 2 Specialty <+> 2 Start <+> 2 Wound Class <+> 2 Anesthesia Type 12/22/18 08:27:24 Marble Mechanic Helper: RUSSELL Modifier: BICKNEA 1 <*> Procedure Esophagogastroduodenoscopy 1 <+> Specialty 1 <-> Additional Procedure Description w GUIDE WIRE DILATION [facility] - Time Out Entry 1 Procedure to be Esophagogastroduodenosco Performed py, Gastric Biopsy, Gastric Polypectomy Time Out Time Out Pause Time 12/22/18 08:36:00 All activity Yes suspended (unless life threatening emergency) Team Verbally Correct patient Confirms Information identity, Correct side and site are marked, Consent form is present and accurate, Agreement on the procedure to be done, Correct patient position, Relevant images/results properly labeled/appropriately displayed Antibiotic N/A Prophylaxis Administered Or In Progress Within the Last 60 Minutes Beta Kamran N/A Administered Venous N/A Thromboembolism Prophylaxis Required Anticipated Critical Events Surgeon None expected Last Modified By: Didi Shah RN 12/22/18 08:43:22 [facility] - Time Out Audit 12/22/18 08:43:22 Marble Mechanic Helper: RUSSELL Modifier: SISSYKNEA 1 <*> Procedure to be Performed Esophagogastroduodenoscopy, Gastric Biopsy 12/22/18 08:41:20 Marble Mechanic Helper: RUSSELL Modifier: BICKNEA 1 <*> Procedure to be Performed Esophagogastroduodenoscopy Case Comments <None> Finalized By: Didi Shah, RN Document Signatures Signed By: Didi Shah RN 12/22/18 08:48 Electronically signed by Margi [facility] Conversion Mold Runner Cerner at 01/28/2023 8:06 AM CDT documented in this encounter Plan of Treatment Not on file documented as of this encounter Visit Diagnoses Not on filedocumented in this encounter Care Teams Dam Attendant Relationship Specialty Start Date End Date Leonora Hansen INSURANCE INVESTIGATOR [address] [place] [address] PCP - General Nurse Practitioner 06/03/23 documented as of this encounter
--- OUTSIDE RECORDS SUMMARY | 2025-03-22 14:11 | XMS_ITS | Encounter Summary ---
Author Organization [employer] Address [address] [place] [address] Care Team Providers Care Pail Tester Name Role Phone Leonora Hansen APRN Primary Care Provider + [phone] Encounter Details Date Type Department Care Team (Late st Contact Info) Description 12/22/2018 Transcribed Document [facility] [place] [facility] [address] [place] [address] ProviderJj MD [address] [place], [place] [id number] Social History Tobacco Use Types Packs/Day Years Used Date Smoking Tobacco: Never Assessed Comments Unknown Sex and Gender Information Value Date Recorded Sex Assigned at Not on file Legal Sex Female 5:16 PM CDT Gender Identity Not on file Sexual Orientation Not on file documented as of this encounter Miscellaneous Notes * Cerner Conversion Note - Jj ProviderMD - 12/22/2018 9:01 AM CDT Nursing Discharge Summary Entered On: 12/22/2018 9:01 EDT Performed On: 12/22/2018 9:01 EDT by CATRACHITO PAZ RN Discharge Documentation Discharge Date/Time : 12/22/2018 9:15 EDT Patient Disposition, General : Discharge Discharge To : Home with ambulatory/outpatient follow-up Mode Of Departure, General Discharge : Wheelchair with adult Accompanied By, Discharge : Significant other IV Discontinued : Yes Personal Belongings With Patient : Yes Prescriptions Given to Patient : Electronically sent Discharge Instructions Reviewed With, Opportunity For Questions Given : Patient, Significant other Patient Education Completed : Yes Teaching Method : Explanation Teaching Evaluation : Verbalizes understanding CATRACHITO PAZ, RN - 12/22/2018 9:01 EDT documented in this encounter Plan of Treatment Not on file documented as of this encounter Visit Diagnoses Not on filedocumented in this encounter Care Teams Pail Tester Relationship Specialty Start Date End Date Leonora Hansen, LICENSED MASSAGE PRACTITIONER [address] [facility] [address] [place] [address] PCP - General Nurse Practitioner 06/03/23 documented as of this encounter
--- OUTSIDE RECORDS SUMMARY | 2025-03-22 14:11 | XMS_ITS | Encounter Summary ---
Author Organization [employer] Address [address] [place] [address] Care Team Providers Care Welder Setter Resistance Machine Name Role Phone Leonora Hansen APRN Primary Care Provider + [phone] Encounter Details Date Type Department Care Team (Late st Contact Info) Description 12/22/[address] [facility] [place] Family Medicine [address] [place] [address] ProviderJj MD [address], [place] [id number] Social History Tobacco Use Types Packs/Day Years Used Date Smoking Tobacco: Never Assessed Comments Unknown Sex and Gender Information Value Date Recorded Sex Assigned at Not on file Legal Sex Female 5:16 PM CDT Gender Identity Not on file Sexual Orientation Not on file documented as of this encounter Miscellaneous Notes * Cerner Conversion Note - Jj ProviderMD - 12/22/2018 7:22 AM CDT Pre Procedure Adult Entered On: 12/22/2018 7:33 EDT Performed On: 12/22/2018 7:22 EDT by Nadeen Yoo RN Height and Weight, Clinical Dosing Height Source : Stated Height Entry Format : Greenleaf Height, Feet : 5 ft(Converted to: 152 cm, 60 Inch) Height, Inches : 3 Inch(Converted to: 0 ft 3 Inch, 7.62 cm) Clinical Height : 160.02 cm Weight Source : Standing scale Weight Entry Format : Greenleaf Clinical Dosing Weight : 83.09 kg Weight, Pounds : 182.8 lb Body Surface Area (BSA) : 1.86 m2 Body Mass Index : 32.4 kg/m2 (HI) Almyra Body Weight : 52 kg Nadeen Yoo RN - 12/22/2018 7:22 EDT Health Histories Smoking Status : Former smoker, quit more than 30 days ago Smokeless Tobacco Status : Never Nadeen Yoo RN - 12/22/2018 7:22 EDT Social History (As Of: 12/22/2018 07:33:03 EDT) Tobacco: Smoking Status Former smoker. Used Tobacco, but Quit Yes. (Last Updated: 01/24/2015 08:38:02 EDT by ALVIN WEEMS RN) Smoking Status Former smoker. Use in Last 12 Months: Cigarettes. Years of Use: 5. Packs/Tins Daily: 1. Last Used: 2009. (Last Updated: 04/16/2016 10:47:06 EDT by EMMY Palomino RN) Alcohol: Alcohol Use History No. (Last Updated: 01/24/2015 08:38:50 EDT by ALVIN WEEMS RN) Substance Abuse: Drug Use Hx: No. Use in Last 12 Months: No. (Last Updated: 01/24/2015 08:38:08 EDT by ALVIN WEEMS RN) Nutrition/Health: Caffeine intake amount: 3. (Last Updated: 01/24/2015 08:38:41 EDT by ALVIN WEEMS RN) Infectious Disease History Infectious Disease History : Chicken pox/Shingles, Hepatitis A, Influenza, MRSA Fever/Chills Last 48 Hours : No Travel To Regions with Travel Advisories : No Travel Outside [place] Within Last 30 Days : No Contact With Traveler to Advisory Region : No Tuberculosis Symptoms : None Nadeen Yoo RN - 12/22/2018 7:22 EDT Anesthesia/Transfusion History Family History of Anesthesia Reaction : No prior transfusion(s) Transfusion History : Prior anesthesia without reaction Family History of Anesthesia Reaction : None Nadeen Yoo RN - 12/22/2018 7:22 EDT Functional Assessment Living Situation : Home Patient Lives With : Child/Children, Significant other(s) Current Home Treatments : None Nadeen Yoo RN - 12/22/2018 7:22 EDT Psychosocial History Currently in Unsafe Situation : No Tried to Harm Yourself in the Past? : No Thoughts of Harming/Killing Yourself : No Nadeen Yoo RN - 12/22/2018 7:22 EDT Advance Directive Patient has Advance Directive *Q : No, patient refuses Advance Directive information Nadeen Yoo RN - 12/22/2018 7:22 EDT General Info Arrived From : Home Mode of Arrival on Unit : Ambulatory Support Person/Patient Fitness Technician : Yes Support Person/Pt Rep Name : Carlee Santiago Support Person/Pt Rep Contact Information : [phone] Want Family/Rep/Phys Notified of Admit : No Emergency Contact #1 : Carlee Johanna Emergency Contact #1 Emergency Contact #1 Relationship : sister Emergency Contact #2 : na Emergency Contact #2 Phone Number : gabriel Emergency Contact #2 Relationship : na Primary Language : Indonesian Preferred Communication Mode : Verbal Communication Barrier : None Status : Hysterectomy Nadeen Yoo RN - 12/22/2018 7:22 EDT Sleep Apnea Risk Assmt Hx of Obstructive Sleep Apnea Diagnosis : No Snore Loudly : Yes Tired, Fatigued, or Sleepy During Day : No Observed Stopping Breathing During Sleep : No Have/Are Being Treated for Hypertension : No BMI Greater Than 35 kg/m2 : Yes Age over 50 Years Old : No Neck Circumference Greater Than 40 cm : No Gender Male : No STOP-BANG Sleep Apnea Risk Level Score : 2 Nadeen Yoo RN - 12/22/2018 7:22 EDT Nando Scale Nando Sensory Perception : No impairment Nando Moisture : Rarely moist Nando Activity : Walks frequently Nando Mobility : No limitation Nando Nutrition : Adequate Nando Friction and Shear : No apparent problem Nando Score : 22 Nadeen Yoo RN - 12/22/2018 7:22 EDT Fall Risk Scales ABCs Fall Injury Risk Identification : None CHAPA Hx Falls Immediate/Within 3 Months : No Chapa Secondary Diagnosis : No CHAPA Use of Ambulatory Aid : None CHAPA IV Therapy or IV Access : Yes Chapa Gait/Transferring : Normal, bedrest, immobile Chapa Mental Status : Oriented to own ability Chapa Fall Risk Score : 20 CHAPA Fall Scale Risk Level : 0-24 Low Risk [place] Fall Interventions : Adequate lighting, Bed in low position, Personal items within reach, Room free of clutter/spills, Upper side-rails up, Wheels locked Barriers to Learning : None evident Individuals Taught : Patient Nadeen Yoo RN - 12/22/2018 7:22 EDT Valuables and Belongings Valuables and Belongings : Clothing Clothing : Common streetwear Clothing Disposition : With patient Nadeen Yoo RN - 12/22/2018 7:22 EDT documented in this encounter Plan of Treatment Not on file documented as of this encounter Visit Diagnoses Not on filedocumented in this encounter Care Teams Welder Setter Resistance Machine Relationship Specialty Start Date End Date Leonora Hansen APRN [address] [address] PCP - General Nurse Practitioner 06/03/23 documented as of this encounter
--- OUTSIDE RECORDS SUMMARY | 2025-03-22 14:11 | XMS_ITS | Encounter Summary ---
Author Organization Healthcare Address [address] [place] [address] Care Team Providers Care Supervisor Litharge Name Role Phone BenitoCaridad JALIL Primary Care Provider [phone] Encounter Details Date Type Department Care Team (Late Contact Info) Description 03/10/2024 Orders Only External Location [address] [place] [address] Provider, External Social History Tobacco Use Types [...] AM EST Appointment [facility] Radiology [address] [place] [address] 08/31/2025 9:30 AM EST Office Visit Pav [facility] Head, Neck & Respiratory [address] [facility], [address]nd [place] [address] Jeffery Devine, DO [address] [address] documented as of this encounter Procedures Procedure Name Priority Date/Time Associated Diagnosis Comments CT OUTSIDE IMAGES 03/10/2024 2:48 PM EDT documented in this encounter Results * CT OUTSIDE IMAGES (03/10/2024 2:48 PM EDT) Anatomical Region Laterality Modality Computed Tomogra phy 03/10/2024 2:48 PM EDT us External Provider IMG CT PROCEDURES Final Result documented in this encounter Visit Diagnoses Not on filedocumented in this encounter Additional Health Concerns Infection Onset Date Last Indicated Resolved Time C. difficile Rule-Out 01/27/2025 01/27/20252024 12:12 AM EDT documented as of this encounter Care Teams Supervisor Litharge Relationship Specialty Start Date End Date Caridad Oliver, JALIL [address] [place] [address] PCP - General 02/22/21 documented as of this encounter
--- OUTSIDE RECORDS SUMMARY | 2025-03-22 14:11 | XMS_ITS | Clinical Summary ---
Author Organization [employer] [facility] [employer] Address [address] [place] [address] Care Team Providers Care Scalp Treatment Specialist Name Role Phone Leonora Hansen APRN Primary Care Provider + [phone] Allergies Active Allergy Reactions Criticality Noted Date [...] Date Dangelo rded Speak language other than Irish at home Not on file 10/30/2023 Want [...] 06/12/2023 9:23 AM EDT Plan of Treatment Health Maintenance Due Date Last Done Comments CT Colonography 1972 Colonoscopy 1972 Colorectal Cancer Screening 1972 FOBT/FIT 1972 Fit-DNA (Cologuard) 1972 Sigmoidoscopy 1972 Depression Screening (12+) 1984 HIV Screening 1987 Hepatitis C Screening 1990 DTAP/TDAP/TD VACCINES (1 - Tdap) 1991 Pap Smear 1993 Breast Cancer Screening 2012 Lipid Panel 2017 Pneumococcal 50+ years (1 of 1 - PCV) 2022 Shingles Vaccine (Zoster) (1 of 2) 2022 COVID-19 VACCINE (1 - 2023- season) 2024 Tobacco Cessation Counseling and Screening (12+) 06/1206/12/2023 Influenza Vaccine (Season Ended) 2025 Insurance BLUE CROSS/BLUE SHIELD Care Teams Scalp Treatment Specialist Relationship Specialty Start Date End Date Leonora Hansen, CARPET SEWER [address] [place] [address] PCP - General Nurse Practitioner 06/03/23
--- OUTSIDE RECORDS SUMMARY | 2025-03-22 14:11 | XMS_ITS | Encounter Summary ---
Author Organization Healthcare Address [address] [place] [address] Care Team Providers Care Dining Server Name Role Phone BenitoCaridad JALIL Primary Care Provider [phone] Encounter Details Date Type Department Care Team ([facility] Contact Info) Description 02/20/2021 Orders Only External Location [address] [place] [address] Provider, External Social History Tobacco Use Types [...] AM EST Appointment [facility] Radiology [address] [place] [address] 08/31/2025 9:30 AM EST Office Visit Pav CC Head, Neck & Respiratory 800 [facility], [address] [place] [address] Jeffery Devine, DO [address] [address] documented as of this encounter Procedures Procedure Name Priority Date/Time Associated Diagnosis Comments NM OUTSIDE IMAGES 02/20/2021 8:15 AM EDT documented in this encounter Results * NM OUTSIDE IMAGES (02/20/2021 8:15 AM EDT) Anatomical Region Laterality Modality Nuclear Medicine 02/20/2021 8:15 AM EDT External Provider IMG NM PROCEDURES Final Result documented in this encounter Visit Diagnoses Not on filedocumented in this encounter Additional Health Concerns Infection Onset Date Last Indicated Resolved Time C. difficile Rule-Out 01/27/2025 01/27/20252024 12:12 AM EDT documented as of this encounter Care Teams Dining Server Relationship Specialty Start Date End Date Caridad Oliver APRN [facility] [place] [address] PCP - General 02/22/21 documented as of this encounter
--- OUTSIDE RECORDS SUMMARY | 2025-03-22 14:11 | XMS_ITS | Clinical Summary ---
Author Organization [facility] Address [address] [place] [address] Care Team Providers Care Casino Enforcement Agent Name Role Phone Caridad Oliver Gaby JIMENES Primary Care Provider [phone] Allergies Active Allergy Reactions Criticality Noted Date Comments Codeine Vomiting,Nausea,Naus ea And Vomiting,Other - please document in the comment field Low 03/27/2016 tremors Other reaction(s): GI Upset, Other: See Comments tremors Oxycodone Hives Medium 02/14/2025 Medications escitalopram (Lexapro) 10 MG tablet Take 1 tablet by mouth nightly. Active valACYclovir (Valtrex) 1 g tablet Take 1 tablet by mouth 3 (three) times a day as needed (Flare ups). Take 1 tablet by mouth 3 times daily for 5 days as needed 4 Active cetirizine (ZyrTEC) 10 MG tablet Take 1 tablet by mouth daily as needed for allergies or rhinitis. 4 Active Nutritional Supplements (isosource 1.5 Pastor/mL) 55 mL by Per J Tube route every 1 (one) hour. 83311 mL 5 5 07/18/20 25 Active oxyCODONE (Roxicodone) 5 MG immediate release tablet Take 1 tablet by mouth every 6 hours as needed for moderate pain. 24 tablet 5 Active Additional Information Patient not taking.Reported on 03/02/2025 pantoprazole (Protonix) 40 MG EC tablet Take 1 tablet by mouth daily before breakfast. Do not crush, chew, or split. 30 tablet 1 5 04/02/20 25 Active nutritional drink (Boost) liquid liquid Take 237 mL by mouth 2 times a day. 70508 mL 2 5 05/15/20 25 Active metoclopramide (Reglan) 10 MG tablet Take 0.5 tablets by mouth every 6 (six) hours. Take before meals and at bedtime. 60 tablet 5 03/03/20 25 Active Problems Problem Noted Date Diagnosed Date Heartburn High cholesterol Depression Overview (01/27/2025): Resume home medications as appropriate. Resolved Problems Problem Noted Date Diagnosed Date Resolved Date Electrolyte abnormality 01/27/202501/11 Overview (01/27/2025): Hypocalcemia Hypokalemia Hypomagnesemia Monitor - Replete as indicated Achalasia 09/22/2024 02/01/2025 Overview (01/29/2025): 01/25/25 - Bronch, EGD, Minimally Invasive Faizan esophagectomy, Lap J tube insertion Following esophagectomy protocol. Encounters Date Type Department Care Team Description 03/17/2025 Telephone [facility] [address] [place] [address] Corie West RN 03/02/2025 10:30 AM EDT Office Visit [facility] [address] [place] [address] Jeffery Devine DO Achalasia (Primary Dx) 03/02/2025 Travel 02/23/2025 Telephone [facility] [address] [place] [address] Ivett Navarrete RN 02/21/2025 11:15 AM EDT Office Visit [facility] [address] [place] [address] Stephanie Ray PA Achalasia (Primary Dx) 02/21/2025 Travel 02/20/2025 Telephone [facility] [address] [place] [address] Jeffery Devine, DO 02/14/2025 11:20 AM EDT Office Visit [facility] [address] [phone] Stephanie Ray PA Achalasia (Primary Dx) 02/14/2025 10:45 AM EDT - 02/14/2025 11:59 PM EDT Hospital Encounter [facility] Radiology [address] [place] [phone] Achalasia Discharge Disposition: Home or Self Care 02/14/2025 Nutrition [facility] [address] [phone] Stephy Devine, RD 02/14/2025 Travel 02/14/2025 Telephone [facility] [address] [address] Jeffery Devine, DO 02/07/2025 Telephone [facility] [address] [address] Corie Wset, RN 02/06/2025 Refill [facility] [address] [phone] Jeffery Devine, DO 02/03/2025 Telephone [facility] Inpatient [address] [place] [address] Kera Garcia 02/01/2025 Travel 01/31/2025 Travel 01/30/2025 Travel 01/29/2025 Travel 01/28/2025 Travel 01/27/2025 Travel 01/26/2025 Travel 01/25/2025 8:15 AM EDT - 01/25/2025 3:00 PM EDT Surgery [facility] [address] [place] [phone] Jeffery Devine, DO MINIMALLY INVASIVE ESOPHAGECTOMY, LAPAROSCOPIC [94209 (CPT )] 01/25/2025 8:06 AM EDT Anesthesia Event [facility] [address] [place] [phone] Lesa Mosquera MD Wilson, Derek, MD 01/25/2025 5:44 AM EDT - 02/01/2025 2:38 PM EDT Hospital Encounter [facility]patient [address] [place] [address] Jeffery Devine, Achalasia Discharge Disposition: Home or Self Care 01/25/2025 Travel 01/24/2025 Travel 01/19/2025 2:30 PM EDT Office Visit [facility] [address] [address] Jeffery Devine, Achalasia (Primary Dx) 01/19/2025 Nutrition [facility] [address] [place] [address] Nancy Devine 01/19/2025 Travel 01/13/2025 Telephone [facility] Inpatient [address] [place] [address] Kera Garcia 01/09/2025 7:30 AM EDT - 01/09/2025 2:45 PM EDT Surgery [facility] [address] [place] [address] Jeffery Devine, DO CREATION, JEJUNOSTOMY, LAPAROSCOPIC 01/09/2025 7:28 AM EDT Anesthesia Event [facility] [address] [place] [address] Selvin Enriquez DO Smyke, Matthew E, MD 01/09/2025 5:59 AM EDT - 01/11/2025 3:52 PM EDT Hospital Encounter [facility] Inpatient [address] [place] [address] Jeffery Devine, Achalasia (Primary Dx) Discharge Disposition: Home or Self Care 01/09/2025 Travel 01/06/2025 9:30 AM EDT Pre-[facility] Testing [facility] [address], [address] [place] [address] Achalasia (Primary Dx); Hyperlipidemia, unspecified hyperlipidemia type 01/06/2025 Travel 01/04/2025 Telephone [facility] [address] [phone] Jeffery Devine DO 12/30/2024 Telephone [facility] [address], [address] [place] [phone] Ulices Najera MD 12/29/2024 Telephone [facility] [address], [address] [place] [address] Ulices Najera MD 12/26/2024 Telephone [facility] [address] [place] [address] Jeffery Devine, DO from Last 3 Months Family History Medical History Relation Name Comments Lung cancer Mother Arthritis Other Cancer Other Diabetes Other Heart Problem Other Heartburn Other Hyperlipidemia Other immune disease Other Relation Name Status Comments Mother Other Social History Tobacco Use Types Packs/Day Years [...] were you homeless or living in a penitentiary (including now)? No 01/26/2025 Utilities Answer Date [...] Mass Index 28.05 03/02/2025 10:01 AM EDT Plan of Treatment Upcoming Encounters Date Type Department Care Team (Late st Contact Info) Description 08/31/2025 8:30 AM EST Appointment [facility] Radiology [address] [place] [address] 08/31/2025 9:30 AM EST Office Visit [facility] 800 [facility], [address]nd [place] [phone] Jeffery Devine, DO [address] [place] [phone] Health Maintenance Due Date Last Done Comments Dental Oral Exam 1972 Dental Prophylaxis 1972 Dental X-Ray: Bitewings 1972 [facility]-Depression Screening 1972 [facility]-HIV Screening 1972 [facility]-Hepatitis C Screening 1972 [facility]-/Child/Adol SDOH Screenings 1972 [facility]-DTaP,Tdap,and Td Vaccines (1 - Tdap) 1991 [facility]-Hepatitis B Vaccines (1 of 3 - 19+ 3-dose series) 1991 [facility]-Pneumococcal Vaccine: 50+ Years (1 of 2 - PCV) 1991 Dental X-Ray: Full Mouth 07/15/1997 07/14/1994 CT Colonography 2017 Colonoscopy 2017 FIT-DNA 2017 FIT 2017 FOBT 2017 Sigmoidoscopy 2017 [facility]-Colorectal Cancer Screening 2017 [facility]-Breast Cancer Screening 2022 [facility]-Zoster Vaccines (1 of 2) 2022 [id number] Vaccine ( - season) 2024 [facility]-Influenza Vaccine (Season Ended) 2025 [facility]- SDOH Screenings 07/28/2025 [facility]-Adult SDOH Screenings 07/28/2025 01/26/2025 [facility]-Cervical Cancer Screening Discontinued [facility]-HPV/Cotest Discontinued 12/05/1998, 04/02/1998 [facility]-Pap Smear Discontinued 12/05/1998, 04/02/1998 [facility]-Obesity Intervention Completed 025, 01/19/2025, 01/11/2025, Additional history exists HPV Vaccines Aged Out No longer eligi ble based on patient's age to complete this topic [facility]-HIB Vaccines Aged Out No longer e ligible based on patient's age to complete this topic [facility]-Hepatitis A Vaccines Aged Out No longer eligible based on patient's age to complete this topic [facility]-IPV Vaccines Aged Out No longer e ligible based on patient's age to complete this topic [facility]-Rotavirus Vaccines Aged Out No lo nger eligible based on patient's age to complete this topic Goals Goal Patient Goal Type Associated Problems Recent Progress Patient-Stated? Author Autogenerat ed Goal Care Plan Autogenerated Problem No JohnsonLeticia Autogenerat ed Goal Care Plan Autogenerated Problem No JohnsonLeticia Procedures Procedure Name Priority Date/Time Associated Diagnosis Comments XR CHEST 2 VIEWS Routine 02/14/2025 11:32 AM EDT Achalasia CBC W/O DIFFERENTIAL Routine 02/01/2025 9:57 AM EDT MAGNESIUM, PLASMA Routine 02/01/2025 9:57 AM EDT RENAL FUNCTION PANEL, PLASMA Routine 9:57 AM EDT XR CHEST 1 VIEW Routine 02/01/2025 6:56 AM EDT POCT GLUCOSE METER UNSOLICIT ED RESULTS Routine 01/31/2025 11:58 PM EDT POCT GLUCOSE METER UNSOLICIT ED RESULTS Routine 01/31/2025 5:01 PM EDT POCT GLUCOSE METER UNSOLICIT ED RESULTS Routine 01/31/2025 12:01 PM EDT MAGNESIUM, PLASMA Routine 01/31/2025 10:50 AM EDT RENAL FUNCTION PANEL, PLASMA Routine 10:50 AM EDT CBC W/O DIFFERENTIAL Routine 01/31/2025 10:50 AM EDT OXYGEN THERAPY Routine 01/31/2025 8:00 AM EDT XR CHEST 1 VIEW Routine 01/31/2025 6:07 AM EDT POCT GLUCOSE METER UNSOLICIT ED RESULTS Routine 01/31/2025 5:28 AM EDT POCT GLUCOSE METER UNSOLICIT ED RESULTS Routine 01/30/2025 11:47 PM EDT OXYGEN THERAPY Routine 01/30/2025 8:00 PM EDT POCT GLUCOSE METER UNSOLICIT ED RESULTS Routine 01/30/2025 5:44 PM EDT POCT GLUCOSE METER UNSOLICIT ED RESULTS Routine 01/30/2025 12:06 PM EDT MAGNESIUM, PLASMA Routine 01/30/2025 10:22 AM EDT RENAL FUNCTION PANEL, PLASMA Routine 10:22 AM EDT CBC W/O DIFFERENTIAL Routine 01/30/2025 10:22 AM EDT FL BARIUM SWALLOW Routine 01/30/2025 10:03 AM EDT OXYGEN THERAPY Routine 01/30/2025 8:00 AM EDT XR CHEST 1 VIEW Routine 01/30/2025 5:25 AM EDT OXYGEN THERAPY Routine 01/29/2025 8:00 PM EDT POCT GLUCOSE METER UNSOLICIT ED RESULTS Routine 01/29/2025 6:05 PM EDT POCT GLUCOSE METER UNSOLICIT ED RESULTS Routine 01/29/2025 11:17 AM EDT OXYGEN THERAPY Routine 01/29/2025 8:00 AM EDT XR CHEST 1 VIEW Routine 01/29/2025 6:08 AM EDT POCT GLUCOSE METER UNSOLICIT ED RESULTS Routine 01/29/2025 5:48 AM EDT MAGNESIUM, PLASMA Routine 01/29/2025 1:38 AM EDT RENAL FUNCTION PANEL, PLASMA Routine 1:38 AM EDT CBC W/O DIFFERENTIAL Routine 01/29/2025 1:38 AM EDT POCT GLUCOSE METER UNSOLICIT ED RESULTS Routine 01/28/2025 11:18 PM EDT OXYGEN THERAPY Routine 01/28/2025 8:00 PM EDT POCT GLUCOSE METER UNSOLICIT ED RESULTS Routine 01/28/2025 6:13 PM EDT INSERT PERIPHERAL IV Routine 01/28/2025 3:56 PM EDT POCT GLUCOSE METER UNSOLICIT ED RESULTS Routine 01/28/2025 11:17 AM EDT POCT GLUCOSE METER UNSOLICIT ED RESULTS Routine 01/28/2025 8:31 AM EDT OXYGEN THERAPY Routine 01/28/2025 8:00 AM EDT MAGNESIUM, PLASMA Routine 01/28/2025 6:08 AM EDT RENAL FUNCTION PANEL, PLASMA Routine 6:08 AM EDT CBC W/O DIFFERENTIAL Routine 01/28/2025 6:08 AM EDT POCT GLUCOSE METER UNSOLICIT ED RESULTS Routine 01/28/2025 5:31 AM EDT XR CHEST 1 VIEW Routine 01/28/2025 4:42 AM EDT CLOSTRIDIODES (CLOSTRIDIUM) DIFFICILE,PCR Routine 01/27/2025 10:40 PM EDT OXYGEN THERAPY Routine 01/27/2025 8:00 PM EDT POCT GLUCOSE METER UNSOLICIT ED RESULTS Routine 01/27/2025 6:57 PM EDT XR CHEST 1 VIEW Timed 01/27/2025 2:17 PM EDT POCT GLUCOSE METER UNSOLICIT ED RESULTS Routine 01/27/2025 1:56 PM EDT POCT GLUCOSE METER UNSOLICIT ED RESULTS Routine 01/27/2025 12:45 PM EDT OXYGEN THERAPY Routine 01/27/2025 8:00 AM EDT CBC W/O DIFFERENTIAL Routine 01/27/2025 4:42 AM EDT MAGNESIUM, PLASMA Routine 01/27/2025 4:40 AM EDT RENAL FUNCTION PANEL, PLASMA Routine 4:40 AM EDT CBC W/O DIFFERENTIAL Routine 01/27/2025 3:28 AM EDT XR CHEST 1 VIEW Routine 01/27/2025 3:00 AM EDT POCT GLUCOSE METER UNSOLICIT ED RESULTS Routine 01/27/2025 1:21 AM EDT OXYGEN THERAPY Routine 01/26/2025 8:00 PM EDT POCT GLUCOSE METER UNSOLICIT ED RESULTS Routine 01/26/2025 7:23 PM EDT OXYGEN THERAPY Routine 01/26/2025 8:00 AM EDT POCT GLUCOSE METER UNSOLICIT ED RESULTS Routine 01/26/2025 6:25 AM EDT XR CHEST 1 VIEW Routine 01/26/2025 2:36 AM EDT MAGNESIUM, PLASMA Routine 01/26/2025 12:02 AM EDT RENAL FUNCTION PANEL, PLASMA Routine 12:02 AM EDT CBC W/O DIFFERENTIAL Routine 01/26/2025 12:02 AM EDT OXYGEN THERAPY Routine 01/25/2025 8:00 PM EDT XR CHEST 1 VIEW STAT 01/25/2025 3:17 PM EDT MAKAYLA AURIS SURVEILLANCE B Y PCR Routine 01/25/2025 3:02 PM EDT MULTI DRUG RESISTANCE TEST Routine 01/25 3:02 PM EDT CBC W/O DIFFERENTIAL STAT 01/25/2025 2:59 PM EDT BLOOD GAS PANEL, ARTERIAL STAT 2024 2:59 PM EDT MAGNESIUM, PLASMA STAT 01/25/2025 2:59 PM EDT RENAL FUNCTION PANEL, PLASMA STAT 2:59 PM EDT OXYGEN THERAPY Routine 01/25/2025 2:38 PM EDT OXYGEN THERAPY Routine 01/25/2025 2:38 PM EDT OXYGEN THERAPY Routine 01/25/2025 2:38 PM EDT SURGICAL PATHOLOGY EXAM Routine 01/26/20 12:18 PM EDT Achalasia ANESTHESIA ULTRASOUND GUIDED Routine 8:45 AM EDT PB ANESTHESIA NON-TIMED PROCEDURE PLACEHOLDER Routine 01/25/2025 8:44 AM EDT PB ANESTHESIA PLACEHOLDER Routine 2024 8:13 AM EDT MO AN ELECTIVE ENDOTRACHEAL AIRWAY Routine 01/25/2025 8:13 AM EDT MO ESOPHAGECTOMY DISTAL 2/3 W/LAPAROSCOPIC MOBLJ 01/25/2025 7:50 AM EDT Achalasia TYPE AND SCREEN Routine 01/25/2025 7:45 AM EDT RENAL FUNCTION PANEL, PLASMA Timed 11/2024 1:03 PM EDT CBC W/O DIFFERENTIAL Routine 01/11/2025 3:54 AM EDT MAGNESIUM, PLASMA Routine 01/11/2025 3:54 AM EDT RENAL FUNCTION PANEL, PLASMA Routine 11/2024 3:54 AM EDT ECG ADULT STAT 01/10/2025 4:02 AM EDT MAGNESIUM, PLASMA Routine 01/10/2025 3:33 AM EDT RENAL FUNCTION PANEL, PLASMA Routine 10/2024 3:33 AM EDT PREALBUMIN, PLASMA Routine 01/10/2025 3:33 AM EDT CBC W/O DIFFERENTIAL Routine 01/10/2025 3:33 AM EDT XR CHEST 1 VIEW STAT 01/09/2025 10:20 AM EDT ANESTHESIA PERIPHERAL IV PLACEMENT Routine 01/09/2025 8:06 AM EDT PB ANESTHESIA NON-TIMED PROCEDURE PLACEHOLDER Routine 01/09/2025 8:05 AM EDT PB ANESTHESIA PLACEHOLDER Routine 2024 7:43 AM EDT MO AN ELECTIVE ENDOTRACHEAL AIRWAY Routine 01/09/2025 7:43 AM EDT MO ESOPHAGOGASTRODUODENOSCOP Y TRANSORAL DIAGNOSTIC 01/09/2025 7:16 AM EDT Achalasia CREATION, JEJUNOSTOMY, LAPAROSCOPIC 01/09/2025 7:16 AM EDT Achalasia TYPE AND SCREEN Routine 01/09/2025 7:12 AM EDT CBC W/O DIFFERENTIAL Routine 01/06/2025 10:27 AM EDT Hyperlipidemia, unspecified hyperlipidemia type BASIC METABOLIC PANEL, PLASMA Routine 10:27 AM EDT Hyperlipidemia, unspecified hyperlipidemia type ECG ADULT Routine 01/06/2025 10:05 AM EDT Hyperlipidemia, unspecified hyperlipidemia type CYTO DATA CONVERSION Routine 12/05/1998 12:00 AM EST PANORAMIC RADIOGRAPHIC IMAGE Routine 12/1993 12:00 AM EDT from Last 3 Months or Most Recently Relevant to Health Maintenance Results * XR Chest 2 Views (02/14/2025 [...] CBC W/O Differential (02/01/2025 9:57 AM EDT) Only the most recent of12 resultswithin the time period is included. WBC Count 9.34 3.70 - 10.30 10*3/uL LAB HEMATOLOGY METHOD 02/01/2025 10:20 AM EDT [facility] RBC Count 3.60(L) 3.90 - 5.20 10*6/uL LAB HEMATOLOGY METHOD 02/01/2025 10:20 AM EDT [facility] HGB 10.3(L) 11.2 - 15.7 g/dL LAB HEMATOLOGY METHOD 02/01/2025 10:20 AM EDT [facility] HCT 31.9(L) 34.0 - 45.0 % LAB HEMATOLOGY METHOD 02/01/2025 10:20 AM EDT [facility] Platelet Count 259 155 - 369 10*3/uL LAB HEMATOLOGY METHOD 02/01/2025 10:20 AM EDT [facility] MCV 89 79 - 98 fL LAB HEMATOLOGY METHOD 02/01/2025 10:20 AM EDT [facility] MCH 28.6 26.0 - 32.0 pg LAB HEMATOLOGY METHOD 02/01/2025 10:20 AM EDT [facility] MCHC 32.3 30.7 - 35.5 g/dL LAB HEMATOLOGY METHOD 02/01/2025 10:20 AM EDT [facility] RDW 14.1 11.5 - 14.5 % LAB HEMATOLOGY METHOD 02/01/2025 10:20 AM EDT [facility] MPV 10.6 8.8 - 12.5 fL LAB HEMATOLOGY METHOD 02/01/2025 10:20 AM EDT [facility] nRBC 0.0 <=0.0 per 100 WBCs LAB HEMATOLOGY METHOD 02/01/2025 10:20 AM EDT [facility] Blood Venous blood specimen / Unknown Venipuncture / Unknown 02/01/2025 9:57 AM EDT 02/01/2025 10:13 AM EDT Diamante Weber EVP SALES LAB BLOOD ORDERABLES Final Re sult Performing Organization Address [facility] [address]/ZIP Co de Phone Number [facility] [address] [place] [address] * Magnesium, Plasma (02/01/2025 9:57 AM EDT) Only the most recent of10 resultswithin the time period is included. Magnesium, Plasma 2.2 1.9 - 2.4 mg/dL 02/01/2025 10:43 AM EDT [facility] Blood Venous blood specimen / Unknown Venipuncture / Unknown 02/01/2025 9:57 AM EDT 02/01/2025 10:13 AM EDT us Diamante Stallingsy EVP SALES LAB BLOOD ORDERABLES Final Re sult Performing Organization Address [facility] [address]/[facility] Co de Phone Number [facility] [address] [place] [address] * (ABNORMAL) Renal Function Panel, Plasma (02/01/2025 9:57 AM EDT) Only the most recent of11 resultswithin the time period is included. Glucose, Plasma 98 74 - 99 mg/dL 02/01/2025 10:43 AM EDT [facility] BUN, Plasma 15 7 - 21 mg/dL 02/01/2025 10:43 AM EDT [facility] Creatinine, Plasma 0.56(L) 0.60 - 1.10 mg/dL 02/01/2025 10:43 AM EDT [facility] BUN/Creatinine Ratio 27 02/01/2025 10:43 AM EDT [facility] Sodium, Plasma 140 136 - 145 mmol/L 02/01/2025 10:43 AM EDT [facility] Potassium, Plasma 4.2 3.6 - 4.9 mmol/L 02/01/2025 10:43 AM EDT [facility] Chloride, Plasma 104 97 - 107 mmol/L 02/01/2025 10:43 AM EDT [facility] CO2, Plasma 25 22 - 29 mmol/L 02/01/2025 10:43 AM EDT [facility] Anion Gap 11 6 - 16 mmol/L 02/01/2025 10:43 AM EDT [facility] Total Calcium, Plasma 8.7(L) 8.9 - 10.2 mg/dL 02/01/2025 10:43 AM EDT [facility] Phosphorus, Plasma 3.9 2.5 - 4.5 mg/dL 02/01/2025 10:43 AM EDT [facility] Albumin, Plasma 3.2(L) 3.5 - 5.2 g/dL 02/01/2025 10:43 AM EDT [facility] eGFRcr 110.0 mL/min/1.7 3m*2 02/01/2025 10:43 AM EDT [facility] Comment:Reported eGFRcr in m L/min/1.73m2 is based the CKD-EPI 2020 equation that does not use a race coefficient. Blood Venous blood specimen / Unknown Venipuncture / Unknown 02/01/2025 9:57 AM EDT 02/01/2025 10:13 AM EDT us Diamante Weber EVP SALES LAB BLOOD ORDERABLES Final Re sult [facility] [address] [place] [address] * XR Chest 1 View (02/01/2025 6:56 AM EDT) Only the most recent of10 resultswithin the time period is included. Anatomical Region Laterality Modality Chest Digital Radiogra phy Impressions 02/01/2025 9:35 AM EDT Stable examination. CRITICAL RESULT: No. COMMUNICATION: Per this written report. Drafted by Taylor Kilpatrick MD on 02/01/2025 9:34 AM Final report signed by Taylor Kilpatrick MD on 02/01/2025 9:35 AM Narrative 02/01/2025 9:35 AM EDT CLINICAL INDICATION: eval lung bermudez TECHNIQUE: XR CHEST 1 VIEW COMPARISON: 01/31/2025 FINDINGS: Left upper mediastinal drain remains in place. Stable appearance of cardiomediastinal silhouette. Small bilateral pleural effusions and bilateral infrahilar atelectasis without change. No new lung opacities. No discrete pneumothorax or pneumomediastinum. Procedure Note Taylor Kilpatrick MD - 02/01/2025 CLINICAL INDICATION: eval lung bermudez TECHNIQUE: XR CHEST 1 VIEW COMPARISON: 01/31/2025 [...] MD on 02/01/2025 9:35 AM Diamante Weber EVP SALES IMG XR PROCEDURES Final Resul t * (ABNORMAL) POCT glucose meter (01/31/2025 11:58 PM EDT) Only the most recent of21 resultswithin the time period is included. POCT Glucose 136(H) 74 - 99 mg/dL 02/01/2025 12:00 AM EDT [facility] Comment:Accuracy of a glucos e result [...] for testing. Comment 02/01/2025 12:00 AM EDT [facility] Scientist Engineer ID [email or web address], [place] 02/01/2025 12:00 AM EDT [facility] Device ID [id number] 02/01/2025 12:00 AM EDT [facility]ALTH[facility]ARE LAB Specimen Type POC Capillary 02/01/2025 12:00 AM EDT [facility] Blood Capillary blood specimen / Unknown 01/31/2025 11:58 PM EDT 02/01/2025 12:00 AM EDT Jeffery Devine DO LAB POINT OF CARE TE ST DOCKED DEVICE UNSOLICITED RESULTS Final Result [facility] [address] [place] [address] * FL Barium Swallow (01/30/2025 10:03 AM [...] facility. FINDINGS: Esophagus: Postsurgical changes consistent with Faizan esophagectomy. There was rapid transit of contrast material from the oropharynx and through the anastomotic site. No evidence of extraluminal contrast or anastomotic leak. Other: On basic acoustic analyst imaging, unchanged positioning of the surgical clips [...] facility. FINDINGS: Esophagus: Postsurgical changes consistent with Faizan esophagectomy.There was rapid transit of contrast material from the oropharynx andthrough the anastomotic site. No evidence of extraluminal contrast oranastomotic leak. Other: On basic acoustic analyst imaging, unchanged positioning of the surgical clipsoverlying [...] IMG FLUOROSCOPY PROCEDURES Fi nal Result * PERIPHERAL IV (SMARTFORM LINK) (01/28/2025 3:56 PM EDT) Narrative Denise Jeffrey RN - 01/28/2025 3:56 PM EDT Denise Jeffrey RN 01/28/2025 3:57 PM Insert peripheral IV Performed by: Denise Jeffrey [...] IV THERAPY ORDERABLES Final R esult * Clostridiodes (Clostridium) difficile PCR (01/27/2025 10:40 PM EDT) C difficile PCR toxin B gene DNA Result Not Detected Not Detected 01/28/2025 12:12 AM EDT [facility] Stool Rectum structure / Unknown Non-blood Collection / Unknown 01/27/2025 10:40 PM EDT 01/27/2025 11:04 PM EDT Narrative [facility] - 01/28/2025 12:12 AM EDT This test is FDA approved for use with liquid stool specimens. This test is used for clinical purposes. It should not be regarded as investigational or for research. This laboratory is certified under the Clinical Laboratory Improvement Amendments of 1988 (CLIA-88) as qualified to perform high complexity clinical laboratory testing. us Jeffery ESPARZA MICROBIOLOGY - GENERAL OR DERABLES Final Result Performing Organization Address [facility] [address] [facility] Co de Phone Number [facility] [address] [place] [address] * Makayla auris Surveillance by PCR (01/25/2025 3:02 PM EDT) Pathologist [facility] Makayla auris PCR Result Not Detected Not Detected 01/26/2025 10:17 AM EDT [facility] Swab (Axilla and Groin) Non-blood Collection / Unknown 01/25/2025 3:02 PM EDT 01/25/2025 3:42 PM EDT Narrative [facility] - 01/26/2025 10:17 AM EDT This PCR assay was developed and its performance characteristics determined by [facility] as appropriate for clinical purposes. This assay has not been cleared or approved by the FDA, but is performed in a CLIA regulated laboratory that is qualified to perform high-complexity testing. us Jeffery Devine DO LAB MICROBIOLOGY - GENERAL OR DERABLES Final Result Performing Organization Address [facility] [address] [facility] Co de Phone Number [facility] [address] [place] [address] * Multi Drug Resistance Test (01/25/2025 3:02 PM EDT) Pathologist [facility] Culture No growth at day 1 01/26/2025 1:57 PM EDT [facility] Swab (Nares and Alexandra Rectal) Non-blood Collection / Unknown 01/25/2025 3:02 PM EDT 01/25/2025 3:42 PM EDT us Jeffery Devine DO LAB MICROBIOLOGY - GENERAL OR DERABLES Final Result [facility] [address] [place] [address] * (ABNORMAL) Blood gas panel, arterial (01/25/2025 2:59 PM EDT) pH, Arterial 7.34(L) 7.35 - 7.45 LAB HEMATOLOGY METHOD 01/25/2025 3:16 PM EDT [facility] pCO2, Arterial 44 35 - 48 mmHg LAB HEMATOLOGY METHOD 01/25/2025 3:16 PM EDT [facility] pO2, Arterial 75(L) 83 - 108 mmHg LAB HEMATOLOGY METHOD 01/25/2025 3:16 PM EDT [facility] SO2, Measured, Arterial 95 94 - 98 % LAB HEMATOLOGY METHOD 01/25/2025 3:16 PM EDT [facility] Base Excess, Arterial -2.1(L) -2.0 - 3.0 mmol/L LAB HEMATOLOGY METHOD 01/25/2025 3:16 PM EDT [facility] Bicarbonate, Calculated, Arterial 24 22 - 26 mmol/L LAB HEMATOLOGY METHOD 01/25/2025 3:16 PM EDT [facility] Hematocrit, Whole Blood 37.3 34.0 - 45.0 % LAB HEMATOLOGY METHOD 01/25/2025 3:16 PM EDT [facility] Sodium, Whole Blood 141 136 - 145 mmol/L LAB HEMATOLOGY METHOD 01/25/2025 3:16 PM EDT [facility] Potassium, Whole Blood 3.7 3.6 - 4.9 mmol/L LAB HEMATOLOGY METHOD 01/25/2025 3:16 PM EDT [facility] Chloride, Whole Blood 108(H) 97 - 107 mmol/L LAB HEMATOLOGY METHOD 01/25/2025 3:16 PM EDT [facility] Glucose, Whole Blood 152(H) 74 - 99 mg/dL LAB HEMATOLOGY METHOD 01/25/2025 3:16 PM EDT [facility] Ionized Calcium, Whole Blood 4.6 4.6 - 5.1 mg/dL LAB HEMATOLOGY METHOD 01/25/2025 3:16 PM EDT [facility] Lactate, Arterial, Whole Blood 2.6(H) 0.5 - 1.6 mmol/L LAB HEMATOLOGY METHOD 01/25/2025 3:16 PM EDT [facility] Blood Arterial blood specimen / Unknown Arterial Puncture / Unknown 01/25/2025 2:59 PM EDT 01/25/2025 3:13 PM EDT us Diamante Weber [employer] LAB BLOOD ORDERABLES Final Re sult [facility] [address] [place] [address] * Surgical Pathology Exam (01/25/2025 12:18 PM EDT) Case Report Surgical Pathology Case: [id number] Authorizing Provider: Jeffery Devine DO Collected: 01/25/2025 1218 Ordering Location: [facility] OPERATING ROOM Received: 01/25/2025 1326 Pathologist: Harshil Banks MD Specimens: A) - Esophagus, portion of esophagus fresh for permanent B) - Esophagus, esophagogastric anastomosis fresh for permanent C) - Esophagus, esophagogastrectom y fresh for permanent 12:28 PM EDT [facility] Final Diagnosis A. ESOPHAGUS, EXCISION: - PORTION [...] PATHOLOGIC ABNORMALITY - BENIGN LYMPH NODES (7) 12:28 PM EDT [facility] at 1228 EDT Clinical Information Achalasia 01/11 5 12:28 PM EDT [facility] Special and Immunohistochemical Stains Special Stain: [id number] Mike Trichrome Stain IHC: There are no tasks to display for the given criteria. All controls show appropriate reactivity. All immunohistochemist ry, in situ hybridization, and histochemical tests were developed by and are performed at the [facility], [address] [place] [address]. All tests reported here, except those addressing [...] on decalcified specimens. 5 12:28 PM EDT [facility] Gross Description A. PORTION OF ESOPHAGUS FRESH FOR PERMANENT The specimens received fresh, placed in formalin labeled p ortion of esophagus and consists of a a 3.5 x 0.3 x 0.2 cm teague-pink segment of stapled esophagus with scantly attached esophageal tissue. The chiqui are excised and healthcare representative sections are submitted in cassette A1. [...] to reveal teague-pink, grossly unremarkable mucosal surface. Chemistry Specialist sections are submitted in cassette B1. Cold [...] grossly identified. Gross photographs have been taken. Chemistry Specialist sections are submitted as follows: C1: Esophageal [...] 56m Angeles Barreto MD 12:28 PM EDT [facility] Note: A resident was involved in the service. I attest I examined the relevant preparations for the specimens and confirmed the diagnosis or interpretation. 12:28 PM EDT [facility] Tissue Esophageal structure / Unknown 01/25/2025 12:18 PM EDT 01/25/2025 1:26 PM EDT Comment:Pre-op diagnosis: Achalasia Tissue specimen (specimen) Esophageal structure / Unknown 01/25/2025 12:25 PM EDT 01/25/2025 1:26 PM EDT Comment:Pre-op diagnosis: Achalasia Tissue specimen (specimen) Esophageal structure / Unknown 01/25/2025 12:30 PM EDT 01/25/2025 1:26 PM EDT Comment:Pre-op diagnosis: Achalasia us Jeffery Devine DO LAB PATHOLOGY ORDERABLES Prudence cabezas Result [facility] [address] [place] [address] * ANESTHESIA ULTRASOUND GUIDED (01/25/2025 8:45 AM [...] PB ANESTHESIA PLACEHOLDER (01/25/2025 8:13 AM EDT) Lesa Beck MD - 01/25/2025 8:13 AM EDT Lesa [...] Additional Comments Atraumatic. No change to dentition. us Lesa Mosquera MD ANESTHESIA ORDERABLES Edited Res ult - Final * Type and screen (01/25/2025 7:45 AM EDT) Only the most recent of2 resultswithin the time period is included. ABO/Rh A Positive 01/25/2025 6:17 AM EDT [facility] Antibody Screen Negative 01/25/2025 6:17 AM EDT [facility] Specimen Expiration 01/28/2025 23:59 01/25/2025 6:17 AM EDT [facility] Blood Venous blood specimen / Unknown Venipuncture / Unknown 01/25/2025 7:45 AM EDT 01/25/2025 8:01 AM EDT Vickey Steel MD LAB BLOOD BANK TEST ORDERABL ES Final Result Performing Organization Address City/State/[facility] Co de Phone Number BLOOD BANK [address] [place] [address], * ECG Adult (01/10/2025 4:02 AM EDT) Only the most recent of2 resultswithin the time period is included. EKG DIAGNOSIS CLASS Borderline Normal MUSE ECG Ventricular Rate 54 BPM MUSE ECG Atrial Rate 54 BPM MUSE ECG MO Interval 162 ms MUSE ECG QRSD Interval 86 ms MUSE ECG QT Interval 458 ms MUSE ECG QTC Interval 434 ms MUSE ECG P [place] 57 degrees MUSE ECG R [place] 11 degrees MUSE ECG T Wave [place] 15 degrees MUSE ECG Diagnosis Sinus bradycardia MUSE ECG Diagnosis Otherwise normal ECG MUSE ECG Diagnosis MUSE ECG Diagnosis Confirmed by Reymnudo Swift ([id number]) on 01/10/2025 10:55:32 AM MUSE ECG 01/10/2025 4:02 AM EDT 01/10/2025 10:55 AM EDT Jeffery Devine DO ECG ORDERABLES Final Result Performing Organization Address City/[facility] [address]/ZIP Co de Phone Number MUSE ECG * (ABNORMAL) Prealbumin (01/10/2025 3:33 AM EDT) Prealbumin, Plasma 18.8(L) 20.0 - 41.0 mg/dL 01/10/2025 5:08 AM EDT [facility] Blood Venous blood specimen / Unknown Venipuncture / Unknown 01/10/2025 3:33 AM EDT 01/10/2025 4:39 AM EDT Jeffery Devine DO LAB BLOOD ORDERABLES Final Re sult Performing Organization Address City/[facility] [address]/[facility] Co de Phone Number [facility] [address] [place] [address] * Peripheral IV (01/09/2025 8:06 AM EDT) Narrative Selvin Enriquez DO - 01/09/2025 8:06 AM EDT Selvin Enriquez DO 01/09/2025 11:43 AM Peripheral IV Placement Needle size: 16 G Location: hand Site prep: alcohol Attempts: 1 Selvin Enriquez DO ANESTHESIA ORDERABLES Final Re sult * PB ANESTHESIA NON-TIMED PROCEDURE PLACEHOLDER (01/09/2025 8:05 AM EDT) Narrative Selvin Enriquez DO - 01/09/2025 8:05 AM EDT Selvin Enriquez DO 01/09/2025 11:42 AM Arterial Line: An arterial line was placed. Procedure performed using surface landmarks in the OR for the following indication(s): continuous blood pressure monitoring and blood sampling needed. A 20 gauge (size), 1 and 3/4 inch (length), Arrow (type) catheter was placed into the Left radial artery and secured by tape. Seldinger technique used Events: patient tolerated procedure well with no complications. Staffing Performed: Resident Anesthesiologist: Selvin Enriquez DO Resident: Anuj Tompknis MD Selvin Enriquez DO ANESTHESIA ORDERABLES Final Re sult * MO AN ELECTIVE ENDOTRACHEAL AIRWAY, PB ANESTHESIA PLACEHOLDER (01/09/2025 7:43 AM EDT) Narrative Selvin Enriquez DO - 01/09/2025 7:43 AM EDT Selvin Enriquez DO 01/09/2025 11:42 AM Airway Date/Time: 01/09/2025 7:43 AM Reason: elective Airway not difficult General Information and Staff Patient location during procedure: OR Anesthesiologist: Selvin Enriquez DO Resident: Anuj Tompkins MD Performed: Resident Patient Condition Indications for airway management: anesthesia Patient position: sniffing Final Airway Details Final airway type: endotracheal airway Successful airway: ETT - double lumen left Cuffed: yes Successful intubation technique: direct laryngoscopy Adjuncts used in placement: intubating stylet Endotracheal tube insertion site: oral Blade: Prasanth Blade size: #3 ETT DL size (fr): 37 Cormack-Lehane Classification: grade I - full view of glottis Placement verified by: chest auscultation, bronchoscopy and capnometry Selvin Enriquez DO ANESTHESIA ORDERABLES Final Re sult * Basic metabolic panel (01/06/2025 10:27 AM EDT) [facility] Glucose, Plasma 96 74 - 99 mg/dL 01/06/2025 12:16 PM EDT [facility] BUN, Plasma 15 7 - 21 mg/dL 01/06/2025 12:16 PM EDT [facility] Creatinine, Plasma 0.69 0.60 - 1.10 mg/dL 01/06/2025 12:16 PM EDT [facility] BUN/Creatinine Ratio 22 01/06/2025 12:16 PM EDT [facility] Sodium, Plasma 144 136 - 145 mmol/L 01/06/2025 12:16 PM EDT [facility] Potassium, Plasma 4.4 3.6 - 4.9 mmol/L 01/06/2025 12:16 PM EDT [facility] Chloride, Plasma 107 97 - 107 mmol/L 01/06/2025 12:16 PM EDT [facility] CO2, Plasma 25 22 - 29 mmol/L 01/06/2025 12:16 PM EDT [facility] Anion Gap 12 6 - 16 mmol/L 01/06/2025 12:16 PM EDT [facility] Total Calcium, Plasma 9.6 8.9 - 10.2 mg/dL 01/06/2025 12:16 PM EDT [facility] eGFRcr 104.6 mL/min/1.7 3m*2 01/06/2025 12:16 PM EDT [facility] Comment:Reported eGFRcr in m L/min/1.73m2 is based the CKD-EPI 2020 equation that does not use a race coefficient. Blood Venous blood specimen / Unknown Venipuncture / Unknown 01/06/2025 10:27 AM EDT 01/06/2025 10:27 AM EDT us Micheline Chavez APRN LAB BLOOD ORDERABLES Prudence cabezas Result [facility] [address] [place] [address] * Cytology (12/05/1998 12:00 AM EST) 12/05/1998 12/06/1998 Narrative SUNQUEST - 12/13/1998 12:00 AM EST [facility] MR #: [id number] [facility] [place] [place], [place] [address] 1970 (Age: 28) FW Collect Date: 12/05/1998 00:00 Receipt Date: 12/06/1998 00:00 Page 1 DEPARTMENT OF PATHOLOGY AND LABORATORY MEDICINE CYTOPATHOLOGY REPORT Email: [email or web address] * Converted Case * This report may not match the original report format ATTENDING MD/Practitioner: Brenda Devine MD Service: OB Location: Reported: 12/13/1998 00:00 Collected: 12/05/1998 00:00 INTERPRETATION CERVICAL/VAGINAL SMEAR WITHIN NORMAL LIMITS. SATISFACTORY FOR INTERPRETATION. Cervical/vaginal cytology is a screening test with a recognized false negative rate. New technologies may decrease but will not eliminate false negative results. Regular (generally annual) cytology screening is recommended to minimize false negative results. Electronically Signed Out By Eric Tapia CAYLA Guzmán (ASC) No Signature Required Cervical cytology is a screening test primarily for squamous cancers and precursors and has associated false negative and positive results. New technologies such as liquid based sampling may decrease but will not eliminate all false negative results. Regular screening and follow-up of unexplained clinical signs and symptoms are recommended to minimize false negative results. Please see the ASCCP website (www.asccp.org) for followup recommendations. If HPV testing was requested, correlation with the results is suggested (please call Microbiology at [phone] for results). CLINICAL INFORMATION: Menstrual History: {Not Provided} Date of Last Menstrual Period: {Not Provided} SPECIMEN DESCRIPTION: A: CERVICAL/VAGINAL SMEAR, PAP ICD: F: {Not Entered} SNOMED CODES: 1; G0A913 [id number] In cases where a pathologist has signed out the report, the service has been rendered in part by a resident. The signing pathologist has performed and is responsible for the reported pathologic evaluation. [facility] Provider LAB PATHOLOGY ORDERABLES Final Result SUNQUEST from Last 3 Months or Most Recently Relevant to Health Maintenance Additional Health Concerns Active Problems Noted Date Diagnosed Date Autogenerated Problem 12/26/2024 Autogenerated Problem 01/11/2025 Insurance AMANDA Advance Directives * Full Code (Latest Code Status on File) Date Activated Date Inactivated Comments 01/25/2025 2:38 PM 02/01/2025 4:43 PM Question Answer Comments I have reviewed the capacity from the link above and, if needed, have updated to appropriate status: Yes * Full Code Date Activated Date Inactivated Comments 01/09/2025 9:54 AM 01/11/2025 5:57 PM Care Teams Casino Enforcement Agent Relationship Specialty Start Date End Date Caridad Oliver APRN [address] [place] [address] PCP - General 02/22/21
--- OUTSIDE RECORDS SUMMARY | 2025-03-22 14:11 | XMS_ITS | Encounter Summary ---
Author Organization [employer] Address [address] [place] [address] Care Team Providers Care Forging Press Setter Up Name Role Phone Leonora Hansen APRN Primary Care Provider + [phone] Encounter Details Date Type Department Care Team (Late st Contact Info) Description 12/22/2018 Transcribed Document [facility] Family Medicine [address] [place] [address] ProviderJj MD [address] [place] [address] Social History Tobacco Use Types Packs/Day Years Used Date Smoking Tobacco: Never Assessed Comments Unknown Sex and Gender Information Value Date Recorded Sex Assigned at Not on file Legal Sex Female 5:16 PM CDT Gender Identity Not on file Sexual Orientation Not on file documented as of this encounter Miscellaneous Notes * Cerner Conversion Note - Jj Santacruz MD - 12/22/2018 7:38 AM CDT Patient: CANDIDO GARCIA Age: 48 years Sex: Female : 1970 Associated Diagnoses: None Author: FATMATA CHAU MD-GAE Basic Information Source of history: Self. Present at bedside: Family member. Referral source: CLARIBEL OLIVER NP-SHAWN. History limitation: None. Chief Complaint Dysphagia history and GERD History of Present Illness Dr Oliver has asked us to see this patient for complaints of heartburn and reflux. She had a Heller Myotomy in 2017 and had noted issues with GERD since that time but inthe last 3-6 months it is much worse. Can bother her at any point inthe day but does seem worse at night. She does use lifestyle modifications, we did review these today. She awakens and takes yogurt and this seems to help the burning. She denies nausea, vomiting, melena, and weight loss. She has some occasional epigastric pain. She does well with swallowing, larger pills and food are slow to pass. She states that if she drinks 2 cups of coffee it may hang out inthe esophagus but will pass. She had botox in 2017 and did not like how it made her feel so she is not interested in having this again. She takes Omeprazole 40mg 1- 2 times daily depending on her symptoms. Risk factors include rare NSAIDs. Denies melena, hematemesis, BRBPR. EGD in 2015 showed mild esophagitis, mild stenosis in the GE junction, and mild gastritis. Pathology was consistent with GERD. Her most recent study 11/2016 was a normal study but due to abnormal manometry she did require BOTOX injection. Histories Past Medical History: Active Hiatal hernia (805285603) GERD - Gastro-esophageal reflux disease (5195062151) neck, left shoulder and back pain Endometriosis (9993506916) Resolved MRSA infection (3989262015): Onset on 01/11/2016 at 45 years. Resolved on 02/10/2016 at 45 years. High triglycerides (917283349): Resolved. Hepatitis A (16870701): Resolved. Procedure history: Ovary removed. Hysterectomy (003060114). Heller Myotomy. section (40791007). Bilateral carpal tunnel release. APPENDECTOMY (94105). Social History Social & Psychosocial Habits Alcohol 01/24/2015 Alcohol Use History, Social Habits No Nutrition/Health 01/24/2015 Caffeine intake amount: 3 Substance Abuse 01/24/2015 Recreational Drug Use History No Recreational Drug Use Last 12 Months No Tobacco 01/24/2015 Smoking Status Former smoker Used Tobacco, but Quit Yes 04/16/2016 Smoking Status Former smoker Tobacco Use Within Last Twelve Months Cigarettes Years of Tobacco Use 5 Packs/Tins Daily 1 Month Tobacco Last Used 2009 . Family History: Negative for GI related issues or cancers. Health Status Allergies: Allergies (1) Active Reaction codeine Nausea Current medications: (Selected) Inpatient Medications Ordered Normal Saline 1,000 mL: 100 mL/Hr, IntraVENous Documented Medications Documented PriLOSEC: 80 mg, Oral, Daily, 0 Refill(s), Medications (1) Active Scheduled: (0) Continuous: (1) NaCl 0.9% 1,000 mL 1,000 mL, IntraVENous, 100 mL/Hr PRN: (0) Problem list: All Problems Endometriosis / SNOMED CT 4746842748 / Confirmed Endometriosis / SNOMED CT 642412652 / Confirmed GERD - Gastro-esophageal reflux disease / SNOMED CT 5042970719 / Confirmed Hiatal hernia / SNOMED CT 898413308 / Confirmed neck, left shoulder and back pain / Confirmed Reflux / SNOMED CT 34681215 / Confirmed Hepatitis A / SNOMED CT 46331729 / Confirmed Resolved: Hepatitis A / SNOMED CT 45871148 Resolved: High triglycerides / SNOMED CT 262713739 Resolved: MRSA infection / SNOMED CT 6224454969 Review of Systems Constitutional: No fever, No chills, No weight gain, No weight loss. Eye: No recent visual problem, No blurring. Ear/Nose/Mouth/Throat: Dysphagia, No epistaxis, No hoarse voice, No sore throat. Respiratory: No shortness of breath, No cough, No hemoptysis. Cardiovascular: No chest pain, No palpitations, No claudication. Gastrointestinal: Negative except as documented in history of present illness. Genitourinary: No dysuria, No hematuria. Hematology/Lymphatics: No bruising tendency, No bleeding tendency. Endocrine: No excessive thirst, No cold intolerance, No heat intolerance. Musculoskeletal: No joint pain, No muscle pain, No gait disturbance, No joint redness. Integumentary: No rash, No pruritus. Neurologic: No confusion, No dizziness, No headache, No seizure. Psychiatric: No anxiety, No depression. the rest of the 10 system review is negative Physical Examination VS/Measurements Vital Measurements 12/22/2018 7:30 EDT Temperature Source Oral Temperature Mode Fahrenheit Temperature, Fahrenheit 98.1 Deg F Heart Rate Monitored 69 bpm Respiratory Rate 16 Breaths/Min Systolic Blood Pressure 108 mmHg Diastolic Blood Pressure 68 mmHg Oxygen Saturation 99 % Oxygen Therapy Mode Room air , Measurements from flowsheet : Height and Weight 12/22/2018 7:22 EDT Height Source Stated Height Entry Format [place] Height/Length, STATELESS (ft) 5 ft Height/Length STATELESS 3 Inch CLINICALHEIGHT 160.02 cm [place] Body Weight 52 kg Weight Source Standing scale Weight Entry Format [place] Weight [place] lb 182.8 lb CLINICALWEIGHT 83.09 kg Body Surface Area (BSA) 1.86 m2 Body Mass Index 32.4 kg/m2 HI General: No acute distress. Appearance: Well nourished, Overweight. Eye: Pupils are equal, round and reactive to light, Extraocular movements are intact, Normal conjunctiva. Sclera: Both eyes, Within normal limits. HENT: Normocephalic, Normal hearing, Oral mucosa is moist. Nose: Both nostrils, Within normal limits, Patent. Mouth: pink. Neck: Supple, Non-tender, No carotid bruit, No jugular venous distention. Respiratory: Lungs are clear to auscultation, Respirations are non-labored, Breath sounds are equal. Pattern: Regular. Cardiovascular: Normal rate, Regular rhythm, No murmur, No gallop, No edema. Arterial pulses: Bilateral, Dorsalis pedis, Within normal limits. Gastrointestinal: Soft, Non-tender, Non-distended, Normal bowel sounds, No organomegaly. Abdomen: Liver ( Within normal limits ). Musculoskeletal: Normal range of motion, Normal strength, No tenderness, No deformity, Normal gait. Integumentary: Warm, Dry, [place], No rash. Integumentary exam: Face, Chest, Arm, Abdomen, Leg. Neurologic: Alert, Oriented, No focal deficits. Orientation: To person, To place, To time. Psychiatric: Cooperative, Appropriate mood & affect, Normal judgment. Review / Management Results review: No qualifying data available. Impression and Plan GERD in the setting of Heller Myotomy at [facility] in 2017. Proceed with EGD with for further evaluation. Risks including that of bleeding, aspiration, and perforation have been discussed with the patient who verbalizes understanding and agrees to proceed. Further recommendations will be based on the above findings. ISasha PA-C, have scribed this note for Dr Fatmata Chau documented in this encounter Plan of Treatment Not on file documented as of this encounter Visit Diagnoses Not on filedocumented in this encounter Care Teams Forging Press Setter Up Relationship Specialty Start Date End Date Leonora Hansen, MOLD PREPARER [address] [place] [id number] PCP - General Nurse Practitioner 06/03/23 documented as of this encounter
--- OUTSIDE RECORDS SUMMARY | 2025-03-22 14:11 | XMS_ITS | Encounter Summary ---
Author Organization [employer] Address [address] [place] [address] Care Team Providers Care Wrist Closer Name Role Phone Leonora Hansen APRN Primary Care Provider + [phone] Encounter Details Date Type Department Care Team (Late st Contact Info) Description 12/22/2018 Transcribed Document [facility] Family Medicine [address] [place] [address] ProviderJj MD [address], [place] [id number] Social History Tobacco Use Types Packs/Day Years Used Date Smoking Tobacco: Never Assessed Comments Unknown Sex and Gender Information Value Date Recorded Sex Assigned at Not on file Legal Sex Female 5:16 PM CDT Gender Identity Not on file Sexual Orientation Not on file documented as of this encounter Miscellaneous Notes * Cerner Conversion Note - Jj ProviderMD - 12/22/2018 8:00 AM CDT STACY Zelaya PreOp Summary Primary Physician: GARCIA SAHNI MD-GAE Finalized Date/Time: 12/22/18 07:44:33 Pt. Name: POLO GARCIASID Robledo /Sex: 1970 Female Med Rec #: [id number] Physician: GARCIA SAHNI MD-GAE Financial #: [id number] Pt. Type: O Room/Bed: N/2 Admit/Disch: 12/22/18 07:03:00 - Institution: [facility] PreOp Case Times Entry 1 In Preop 12/22/18 07:12:00 Ready for Holding n/a Room Patient Ready for 12/22/18 07:44:00 Surgery Patient Out of Preop 12/22/18 07:44:00 Patient Out of n/a Holding Room [facility] PreOp Case Times Audit 12/22/18 07:44:30 Steam Hoist Operator: [id number] Modifier: [id number] <*> In Preop 12/22/18 07:43:00 1 <+> Patient Out of Preop 1 <+> Patient Ready for Surgery Finalized By: Nadeen Yoo RN Document Signatures Signed By: Nadeen Yoo RN 12/22/18 07:44 documented in this encounter Plan of Treatment Not on file documented as of this encounter Visit Diagnoses Not on filedocumented in this encounter Care Teams Wrist Closer Relationship Specialty Start Date End Date Leonora Hansen APRN [address] [facility] [address] [place] [address] PCP - General Nurse Practitioner 06/03/23 documented as of this encounter
--- OUTSIDE RECORDS SUMMARY | 2025-03-22 14:11 | XMS_ITS | Encounter Summary ---
Author Organization Healthcare Address [address] [place] [address] Care Team Providers Care Director Of Strategic Partnerships Name Role Phone Benito Caridad Gaby JIMENES Primary Care Provider [phone] Encounter Details Date Type Department Care Team ([facility] st Contact Info) Description 02/03/2025 Telephone [facility] Inpatient [address] [place] [address] Kera Garcia CV TELE-PROGRESSIVE Social History Tobacco Use Types Packs/Day Years [...] time in the past 12 m [facility], were you homeless or living in a snf (including now)? No 01/26/2025 Utilities Answer Date [...] AM EST Appointment [facility] Radiology [address] [place] [address] 08/31/2025 9:30 AM EST Office Visit [facility] Res[facility] [address] [facility] [address] [place] [address] Jeffery Devine, DO [address] [phone] documented as of this encounter Goals Goal [...] as of this encounter Care Teams Director Of Strategic Partnerships Relationship Specialty Start Date End Date Caridad Oliver APRN [address] [place] [address] PCP - General 02/22/21 documented as of this encounter
--- OUTSIDE RECORDS SUMMARY | 2025-03-22 14:11 | XMS_ITS | Encounter Summary ---
Author Organization [employer] Address [address] [place] [address] Care Team Providers Care Statistics Intern Name Role Phone Leonora Hansen APRN Primary Care Provider + [phone] Encounter Details Date Type Department Care Team (Late st Contact Info) Description 12/22/[address] [facility] Family Medicine [address] [place] [address] ProviderJj MD [address], [place] [id number] Social History Tobacco Use Types Packs/Day Years Used Date Smoking Tobacco: Never Assessed Comments Unknown Sex and Gender Information Value Date Recorded Sex Assigned at Not on file Legal Sex Female 5:16 PM CDT Gender Identity Not on file Sexual Orientation Not on file documented as of this encounter Miscellaneous Notes * Cerner Conversion Note - Jj Santacruz MD - 12/22/2018 9:09 AM CDT [facility] [address], [place] [address] Patient Copy Patient Information: Name: KAVITA GARCIA Current Date: 12/22/2018 09:09:11 : 1970 Patient Address: [address] [place] [id number] Patient Attending Physician: GARCIA CHAU MD-KRISTYN Primary Care Provider: PHY, NOT LISTED Primary Care Provider Phone: Discharge Diagnosis: Weight on Admission: 182 lb, 13 oz Comment: Follow-up Instructions: With: Address: When: GARCIA BORA [address], [address] [place], [place] [id number] Business (1) Within As needed, only if needed Comments: follow up with biopsy results follow up with Dr Chau as needed dexilant as prescribed Discharge Instructions: Diet after Discharge: Regular diet as tolerated Activity after Discharge: Rest and relax today, No strenuous activities Driving after Discharge: Do not drive May Return to Work/School: 12/23/18 Showering/Bathing: May shower Notify Provider of: any problems or concerns Immunizations Documented During Stay: No Immunizations Found Heart Failure Discharge Instructions (if any): Stroke Related Discharge Instructions (if any): Warfarin Related Discharge Instructions (if any): Final Medication List: [facility], [address] [place] [phone], [phone] dexlansoprazole (Dexilant 60 mg oral delayed release capsule) 1 Capsule(s) Oral Every Day. Take on an empty stomach 30 minutes before breakfast. Refills: 2. Patient Allergies: codeine Medication Instructions: Take your medications faithfully. Do NOT skip medication. Do NOT stop taking medications without the direction of a physician. Carry a list of your medications with you at all times, and take this medication list with you to your first follow up visit. Report any side effects. Avoid herbal remedies unless discussed with your physician. As part of your treatment plan, your physician may have prescribed a limited course of a controlled substance. This medication may be given to help people with moderate or severe pain or for other medical conditions, but there are risks involved with treatment. Common side effects may include nausea, constipation, drowsiness, sweating, itching, dry mouth, and rash. More serious side effects may include cognitive and motor impairment, like problems with thinking, concentrating, alertness, and movement (e.g. slowed reflexes), and driving and operating heavy machinery can be dangerous. It is important for you to talk to your physician if you have these side effects or questions. These controlled substances can produce physical dependence and be habit-forming if taken for an extended period of time, which means that the body has gotten used to them and may experience withdrawal symptoms if they are abruptly stopped. Withdrawal symptoms can include runny nose, sweating, goose bumps, diarrhea, abdominal cramping, rapid heartbeat, difficulty sleeping, and nervousness. Patient education materials: Gastric Polyps A gastric polyp, also called a stomach polyp, is a growth on the lining of the stomach. Most polyps are not dangerous, but some can be harmful because of their size, location, or type. Polyps that can become harmful include: ??? Large polyps. These can turn into sores (ulcers). Ulcers can lead to stomach bleeding. ??? Polyps that block food from moving from the stomach to the small intestine (gastric outlet obstruction). ??? A type of polyp called an adenoma. This type of polyp can become cancerous. What are the causes? Gastric polyps form when the lining of the stomach gets inflamed or damaged. Stomach inflammation and damage may be caused by: ??? A long-lasting stomach condition, such as gastritis. ??? Certain medicines used to reduce stomach acid. ??? An inherited condition called familial adenomatous polyposis. What are the signs or symptoms? Usually, this condition does not cause any symptoms. If you do have symptoms, they may include: ??? Pain or tenderness in the abdomen. ??? Nausea. ??? Trouble eating or swallowing. ??? Blood in the stool. ??? Anemia. How is this diagnosed? Gastric polyps are diagnosed with: ??? A medical procedure called endoscopy. ??? A lab test in which a part of the polyp is examined. This test is done with a sample of polyp tissue (biopsy) taken during an endoscopy. How is this treated? Treatment depends on the type, location, and size of the polyps. Treatment may involve: ??? Having the polyps checked regularly with an endoscopy. ??? Having the polyps removed with an endoscopy. This may be done if the polyps are harmful or can become harmful. Removing a polyp often prevents problems from developing. ??? Having the polyps removed with a surgery called a partial gastrectomy. This may be done in rare cases to remove very large polyps. ??? Treating the underlying condition that caused the polyps. Follow these instructions at home: ??? Take jwep-mne-vnenxwt and prescription medicines only as told by your health care provider. ??? Keep all follow-up visits as told by your health care provider. This is important. Contact a health care provider if: ??? You develop new symptoms. ??? Your symptoms get worse. Get help right away if: ??? You vomit blood. ??? You have severe abdominal pain. ??? You cannot eat or drink. ??? You have blood in your stool. This information is not intended to replace advice given to you by your health care provider. Make sure you discuss any questions you have with your health care provider. Document Released: 09/14/2013 Document Revised: 02/16/2017 Document Reviewed: 10/12/2016 [employer] Interactive Patient Education ? 2017 [employer]. Gastritis, Adult Gastritis is soreness and swelling (inflammation) of the lining of the stomach. Gastritis can develop as a sudden onset (acute) or long-term (chronic) condition. If gastritis is not treated, it can lead to stomach bleeding and ulcers. CAUSES Gastritis occurs when the stomach lining is weak or damaged. Digestive juices from the stomach then inflame the weakened stomach lining. The stomach lining may be weak or damaged due to viral or bacterial infections. One common bacterial infection is the Helicobacter pylori infection. Gastritis can also result from excessive alcohol consumption, taking certain medicines, or having too much acid in the stomach. SYMPTOMS In some cases, there are no symptoms. When symptoms are present, they may include: ??? Pain or a burning sensation in the upper abdomen. ??? Nausea. ??? Vomiting. ??? An uncomfortable feeling of fullness after eating. DIAGNOSIS Your caregiver may suspect you have gastritis based on your symptoms and a physical exam. To determine the cause of your gastritis, your caregiver may perform the following: ??? Blood or stool tests to check for the H pylori bacterium. ??? Gastroscopy. A thin, flexible tube (endoscope) is passed down the esophagus and into the stomach. The endoscope has a light and camera on the end. Your caregiver uses the endoscope to view the inside of the stomach. ??? Taking a tissue sample (biopsy) from the stomach to examine under a microscope. TREATMENT Depending on the cause of your gastritis, medicines may be prescribed. If you have a bacterial infection, such as an H pylori infection, antibiotics may be given. If your gastritis is caused by too much acid in the stomach, H2 blockers or antacids may be given. Your caregiver may recommend that you stop taking aspirin, ibuprofen, or other nonsteroidal anti-inflammatory drugs (NSAIDs). HOME CARE INSTRUCTIONS ??? Only take fbbd-txm-ycyqmdk or prescription medicines as directed by your caregiver. ??? If you were given antibiotic medicines, take them as directed. Finish them even if you start to feel better. ??? Drink enough fluids to keep your urine clear or pale yellow. ??? Avoid foods and drinks that make your symptoms worse, such as: ? Caffeine or alcoholic drinks. ? Chocolate. ? Peppermint or mint flavorings. ? Garlic and onions. ? Spicy foods. ? Hendron fruits, such as oranges, kylie, or limes. ? Tomato-based foods such as sauce, chili, salsa, and pizza. ? Fried and fatty foods. ??? Eat small, frequent meals instead of large meals. SEEK IMMEDIATE MEDICAL CARE IF: ??? You have black or dark red stools. ??? You vomit blood or material that looks like coffee grounds. ??? You are unable to keep fluids down. ??? Your abdominal pain gets worse. ??? You have a fever. ??? You do not feel better after 1 week. ??? You have any other questions or concerns. MAKE SURE YOU: ??? Understand these instructions. ??? Will watch your condition. ??? Will get help right away if you are not doing well or get worse. This information is not intended to replace advice given to you by your health care provider. Make sure you discuss any questions you have with your health care provider. Document Released: 09/22/2002 Document Revised: 03/29/2013 Document Reviewed: 06/21/2016 [employer] Interactive Patient Education ? 2017 [employer] Esophagitis Introduction Esophagitis is inflammation of the esophagus. The esophagus is the tube that carries food and liquids from your mouth to your stomach. Esophagitis can cause soreness or pain in the esophagus. This condition can make it difficult and painful to swallow. What are the causes? Most causes of esophagitis are not serious. Common causes of this condition include: ??? Gastroesophageal reflux disease (GERD). This is when stomach contents move back up into the esophagus (reflux). ??? Repeated vomiting. ??? An allergic-type reaction, especially caused by food allergies (eosinophilic esophagitis). ??? Injury to the esophagus by swallowing large pills with or without water, or swallowing certain types of medicines. ??? Swallowing (ingesting) harmful chemicals, such as household cleaning products. ??? Heavy alcohol use. ??? An infection of the esophagus.?This most often occurs in people who have a weakened immune system. ??? Radiation or chemotherapy treatment for cancer. ??? Certain diseases such as sarcoidosis, Crohn disease, and scleroderma. What are the signs or symptoms? Symptoms of this condition include:??? Difficult or painful swallowing. ??? Pain with swallowing acidic liquids, such as citrus juices. ??? Pain with burping. ??? Chest pain. ??? Difficulty breathing. ??? Nausea. ??? Vomiting. ??? Pain in the abdomen. ??? Weight loss. ??? Ulcers in the mouth. ??? Patches of white material in the mouth (candidiasis). ??? Fever. ??? Coughing up blood or vomiting blood. ??? Stool that is black, tarry, or bright red. How is this diagnosed? Your health care provider will take a medical history and perform a physical exam. You may also have other tests, including: ??? An endoscopy to examine your stomach and esophagus with a small camera. ??? A test that measures the acidity level in your esophagus. ??? A test that measures how much pressure is on your esophagus. ??? A barium swallow or modified barium swallow to show the shape, size, and functioning of your esophagus. ??? Allergy tests. How is this treated? Treatment for this condition depends on the cause of your esophagitis. In some cases, steroids or other medicines may be given to help relieve your symptoms or to treat the underlying cause of your condition. You may have to make some lifestyle changes, such as:??? Avoiding alcohol. ??? Quitting smoking. ??? Changing your diet. ??? Exercising. ??? Changing your sleep habits and your sleep environment. Follow these instructions at home: Take these actions to decrease your discomfort and to help avoid complications. Diet??? Follow a diet as recommended by your health care provider. This may involve avoiding foods and drinks such as:? Coffee and tea (with or without caffeine). ? Drinks that contain alcohol. ? Energy drinks and sports drinks. ? Carbonated drinks or sodas. ? Chocolate and cocoa. ? Peppermint and mint flavorings. ? Garlic and onions. ? Horseradish. ? Spicy and acidic foods, including peppers, chili powder, kirby powder, vinegar, hot sauces, and barbecue sauce. ? Hendron fruit juices and citrus fruits, such as oranges, kylie, and limes. ? Tomato-based foods, such as red sauce, chili, salsa, and pizza with red sauce. ? Fried and fatty foods, such as donuts, luxembourgish fries, potato chips, and high-fat dressings. ? High-fat meats, such as hot dogs and fatty cuts of red and white meats, such as rib eye steak, sausage, ham, and dwyer. ? High-fat dairy items, such as whole milk, butter, and cream cheese. ??? Eat small, frequent meals instead of large meals. ??? Avoid drinking large amounts of liquid with your meals. ??? Avoid eating meals during the 2?3 hours before bedtime. ??? Avoid lying down right after you eat. ??? Do notexercise right after you eat. ??? Avoid foods and drinks that seem to make your symptoms worse. General instructions??? Pay attention to any changes in your symptoms. ??? Take wdny-yac-ogflizu and prescription medicines only as told by your health care provider. Do not take aspirin, ibuprofen, or other NSAIDs unless your health care provider told you to do so. ??? If you have trouble taking pills, use a pill splitter to decrease the size of the pill. This will decrease the chance of the pill getting stuck or injuring your esophagus on the way down. Also, drink water after you take a pill. ??? Do notuse any tobacco products, including cigarettes, chewing tobacco, and e-cigarettes. If you need help quitting, ask your health care provider. ??? Wear loose-fitting clothing. Do not wear anything tight around your waist that causes pressure on your abdomen. ??? Raise (elevate) the head of your bed about 6 inches (15 cm). ??? Try to reduce your stress, such as with yoga or meditation. If you need help reducing stress, ask your health care provider. ??? If you are overweight, reduce your weight to an amount that is healthy for you. Ask your health care provider for guidance about a safe weight loss goal. ??? Keep all follow-up visits as told by your health care provider. This is important. Contact a health care provider if: ??? You have new symptoms. ??? You have unexplained weight loss. ??? You have difficulty swallowing, or it hurts to swallow. ??? You have wheezing or a persistent cough. ??? Your symptoms do not improve with treatment. ??? You have frequent heartburn for more than two weeks. Get help right away if: ??? You have severe pain in your arms, neck, jaw, teeth, or back. ??? You feel sweaty, dizzy, or light-headed. ??? You have chest pain or shortness of breath. ??? You vomit and your vomit looks like blood or coffee grounds. ??? Your stool is bloody or black. ??? You have a fever. ??? You cannot swallow, drink, or eat. This information is not intended to replace advice given to you by your health care provider. Make sure you discuss any questions you have with your health care provider. Document Released: 11/05/2005 Document Revised: 03/05/2017 Document Reviewed: 01/23/2016 ? 2017 [employer] Esophagogastroduodenoscopy, Care After Introduction Refer to this sheet in the next few weeks. These instructions provide you with information about caring for yourself after your procedure. Your health care provider may also give you more specific instructions. Your treatment has been planned according to current medical practices, but problems sometimes occur. Call your health care provider if you have any problems or questions after your procedure. What can I expect after the procedure? After the procedure, it is common to have:??? A sore throat. ??? Nausea. ??? Bloating. ??? Dizziness. ??? Fatigue. Follow these instructions at home: ??? Do noteat or drink anything until the numbing medicine (local anesthetic) has worn off and your gag reflex has returned. You will know that the local anesthetic has worn off when you can swallow comfortably. ??? Do notdrive for 24 hours if you received a medicine to help you relax (sedative). ??? If your health care provider took a tissue sample for testing during the procedure, make sure to get your test results. This is your responsibility. Ask your health care provider or the department performing the test when your results will be ready. ??? Keep all follow-up visits as told by your health care provider. This is important. Contact a health care provider if: ??? You cannot stop coughing. ??? You are not urinating. ??? You are urinating less than usual. Get help right away if: ??? You have trouble swallowing. ??? You cannot eat or drink. ??? You have throat or chest pain that gets worse. ??? You are dizzy or light-headed. ??? You faint. ??? You have nausea or vomiting. ??? You have chills. ??? You have a fever. ??? You have severe abdominal pain. ??? You have black, tarry, or bloody stools. This information is not intended to replace advice given to you by your health care provider. Make sure you discuss any questions you have with your health care provider. Document Released: 09/14/2013 Document Revised: 03/05/2017 Document Reviewed: 08/21/2016 ? 2017 [employer] Medication Leaflets: dexlansoprazole (DEX robert AB pra zol) Dexilant What is the most important information I should know about dexlansoprazole? Dexlansoprazole can cause kidney problems. Tell your doctor if you are urinating less than usual, or if you have blood in your urine. Diarrhea may be a sign of a new infection. Call your doctor if you have diarrhea that is watery or has blood in it. Dexlansoprazole may cause new or worsening symptoms of lupus. Tell your doctor if you have joint pain and a skin rash on your cheeks or arms that worsens in sunlight. You may be more likely to have a broken bone while taking this medicine long winder tender or more than once per day. What is dexlansoprazole? Dexlansoprazole is a proton pump inhibitor that decreases the amount of acid produced in the stomach. Dexlansoprazole is used to treat heartburn caused by gastroesophageal reflux disease (GERD), and to heal erosive esophagitis (damage to the esophagus from stomach acid). Dexlansoprazole may also be used for purposes not listed in this medication guide. What should I discuss with my healthcare provider before taking dexlansoprazole? Heartburn can mimic early symptoms of a heart attack. Get emergency medical help if you have chest pain that spreads to your jaw or shoulder and you feel anxious or light-headed. You should not take dexlansoprazole if you are allergic to it, or if you also take a medicine that contains rilpivirine (Complera, Edurant, Odefsey). Tell your doctor if you have ever had: ? severe liver disease; ?? osteoporosis; ?? low bone mineral density (osteopenia); or ?? low levels of magnesium in your blood. You may be more likely to have a broken bone in your hip, wrist, or spine while taking a proton pump inhibitor long-term or more than once per day. Talk with your doctor about ways to keep your bones healthy. This medicine is not expected to harm an unborn baby. Tell your doctor if you are or plan to become . It may not be safe to breast-feed while using this medicine. Ask your doctor about any risk. Dexlansoprazole is not approved for use by anyone younger than 12 years old. How should I take dexlansoprazole? Follow all directions on your prescription label and read all medication guides or instruction sheets. Use the medicine exactly as directed. Take this medicine with a full glass of water. Dexlansoprazole may be taken with or without food. Swallow the capsule whole and do not crush, chew, break, or open it. If you cannot swallow a capsule whole, open it and sprinkle the medicine into a spoonful of applesauce. Swallow the mixture right away without chewing. Do not save it for later use. To heal erosive esophagitis and relieve heartburn, dexlansoprazole is usually given for up to 6 months in adults, and for 4 to 16 weeks in children ages 12 through 17. Follow your doctor's dosing instructions very carefully. Use this medicine for the full prescribed length of time, even if your symptoms quickly improve. Call your doctor if your symptoms do not improve, or if they get worse while using dexlansoprazole. This medicine can affect the results of certain medical tests. Tell any doctor who treats you that you are using dexlansoprazole. Dexlansoprazole may also affect a drug-screening urine test and you may have false results. Tell the laboratory staff that you use dexlansoprazole. Store at room temperature away from moisture and heat. What happens if I miss a dose? Take the medicine as soon as you can, but skip the missed dose if it is almost time for your next dose. Do not take two doses at one time. What happens if I overdose? Seek emergency medical attention or call the Poison Help line at . What should I avoid while taking dexlansoprazole? This medicine can cause diarrhea, which may be a sign of a new infection. If you have diarrhea that is watery or bloody, call your doctor. Do not use anti-diarrhea medicine unless your doctor tells you to. What are the possible side effects of dexlansoprazole? Get emergency medical help if you have signs of an allergic reaction: hives; difficulty breathing; swelling of your face, lips, tongue, or throat. Call your doctor at once if you have: ? severe stomach pain, diarrhea that is watery or bloody; ?? a seizure (convulsions); ?? sudden pain or trouble moving your hip, wrist, or back; ?? kidney problems--urinating more or less than usual, blood in your urine, swelling, rapid weight gain; ?? low magnesium--dizziness, fast or irregular heart rate, tremors (shaking) or jerking muscle movements, feeling jittery, muscle cramps, muscle spasms in your hands and feet, cough or choking feeling; or ?? new or worsening symptoms of lupus--joint pain, and a skin rash on your cheeks or arms that worsens in sunlight. Taking dexlansoprazole long-term may cause you to develop stomach growths called fundic gland polyps. Talk with your doctor about this risk. If you use dexlansoprazole for longer than 3 years, you could develop a vitamin B-12 deficiency. Talk to your doctor about how to manage this condition if you develop it. Common side effects may include: ? nausea, vomiting, stomach pain, gas; ?? diarrhea; ?? headache; ?? mouth pain, sore throat; or ?? stuffy nose, sinus pain, or other cold symptoms. This is not a complete list of side effects and others may occur. Call your doctor for medical advice about side effects. You may report side effects to FDA at 1-092-SFN-0737. What other drugs will affect dexlansoprazole? Tell your doctor about all your current medicines. Many drugs can affect dexlansoprazole, especially: ? methotrexate; ?? rifampin; ?? Radha's wort; or ?? warfarin (Coumadin, Jantoven). This list is not complete and many other drugs may affect dexlansoprazole. This includes prescription and szga-kqf-tesziyc medicines, vitamins, and herbal products. Not all possible drug interactions are listed here. Where can I get more information? Your pharmacist can provide more information about dexlansoprazole. Remember, keep this and all other medicines out of the reach of children, never share your medicines with others, and use this medication only for the indication prescribed. Every effort has been made to ensure that the information provided by [employer] ('[employer]') is accurate, up-to-date, and complete, but no guarantee is made to that effect. Drug information contained herein may be time sensitive. [employer] information has been compiled for use by healthcare practitioners and consumers in the [place] and therefore [employer] does not warrant that uses outside of the [place] are appropriate, unless specifically indicated otherwise. [employer] drug information does not endorse drugs, diagnose patients or recommend therapy. [employer] drug information is an informational resource designed to assist licensed healthcare practitioners in caring for their patients and/or to serve consumers viewing this service as a supplement to, and not a substitute for, the expertise, skill, knowledge and judgment of healthcare practitioners. The absence of a warning for a given drug or drug combination in no way should be construed to indicate that the drug or drug combination is safe, effective or appropriate for any given patient. [employer] does not assume any responsibility for any aspect of healthcare administered with the aid of information [employer] provides. The information contained herein is not intended to cover all possible uses, directions, precautions, warnings, drug interactions, allergic reactions, or adverse effects. If you have questions about the drugs you are taking, check with your doctor, nurse or pharmacist. Copyright 7185-8374 [employer] Version: 14.01. Revision Date: 04/05/2018. CIGARETTE SMOKING: The facts are clear, cigarette smoking will shorten your life. Smoking can cause many illnesses along the way. As a healthcare provider, we recommend that you stop smoking. Assistance with quitting is available by contacting 7-984-UXPV-NOW. This is a free resource providing counseling, support, and referral. Or you may contact your personal physician. 4 WAYS TO GET AHEAD OF SEPSIS SEPSIS is a MEDICAL EMERGENCY. Time matters! Infections put you and your family at risk for a life-threatening condition called sepsis. Sepsis is the body???s extreme response to an infection. It is life-threatening, and without timely treatment, sepsis can rapidly lead to tissue damage, organ failure, and . Sepsis happens when an infection you already have???in your skin, lungs, urinary tract or somewhere else???triggers a chain reaction throughout your body. 1 PREVENT INFECTIONS Take good care of chronic conditions. Talk to your doctor about getting the recommended vaccines. 2 PRACTICE GOOD HYGIENE Wash your hands frequently. Keep cuts or open sores clean and covered until they are healed. 3 KNOW THE SYMPTOMS Confusion or disorientation Shortness of breath High heart rate Fever, shivering, or feeling very cold Extreme pain or discomfort Clammy or sweaty skin 4 ACT FAST Get medical care IMMEDIATELY if you suspect sepsis or if you have an infection that???s not getting better or is getting worse. To learn more about sepsis and how to prevent infections, visit www.cdc.gov/sepsis. STROKE is an EMERGENCY [employer] ACT F.A.S.T! FACE ?? Facial droop ?? Uneven smile ARM ?? Arm numbness ?? Arm weakness SPEECH ?? Slurred speech ?? Difficulty speaking or understanding TIME ?? Call 911 and get to the hospital immediately Have the ambulance go to the nearest stroke center. STROKE Risk Factors High blood pressure High cholesterol Heart Disease Diabetes Smoking Heavy alcohol use Physical inactivity and obesity Atrial Fibrillation (irregular heartbeat) Family history of stroke Reminder: Be sure to sign up for the [employer] patient portal, which gives you 04/05 access to your medical information ??? including these discharge instructions ??? using your computer, smartphone, or tablet. Just go to [employer] to get started. Questions? Call . [facility] would like to thank you for allowing us to assist you with your healthcare needs. JOSE Mallory THEREASA L, (or equal opportunity representative) have received the above patient education materials/instructions and have verbalized understanding: Patient Signature _ Date/Time Patient Upholstery Cutter Signature (if needed) Date/Time Clinician/Hospital Upholstery Cutter Signature (if needed) Date/Time Electronically signed by Margi, [facility] Conversion O And M Supervisor Sunniner at 01/28/2023 7:57 AM CDT documented in this encounter Plan of Treatment Not on file documented as of this encounter Visit Diagnoses Not on filedocumented in this encounter Care Teams Statistics Intern Relationship Specialty Start Date End Date Leonora Hansen APRN [address] [facility] [address] [place] [address] PCP - General Nurse Practitioner 06/03/23 documented as of this encounter
--- OUTSIDE RECORDS SUMMARY | 2025-03-22 14:11 | XMS_ITS | Encounter Summary ---
Author Organization Healthcare Address [address] [place] [address] Care Team Providers Care Truck Loader Name Role Phone Caridad Oliver TEST LAB TECHNICIAN Primary Care Provider [phone] Encounter Details Date Type Department Care Team (Late Contact Info) Description 12/23/2022 Orders Only External Location [address] [place] [id number] Margarita Calvo, TEST LAB TECHNICIAN [address] [place] [address] Social History Tobacco Use Types Packs/Day Years [...] AM EST Appointment P[facility] H Radiology [address] [place] [address] 08/31/2025 9:30 AM EST Office Visit Pav CC Head, Neck & Respiratory 800 [facility], 2nd [place] [address] Jeffery Devine, DO [address] [facility] [address] [place] [address] documented as of this encounter Procedures Procedure Name Priority Date/Time Associated Diagnosis Comments XR OUTSIDE IMAGES 12/23/2022 11:09 AM EDT documented in this encounter Results * XR OUTSIDE IMAGES (12/23/2022 11:09 AM EDT) Anatomical Region Laterality Modality Radiographic Laura ging 12/23/2022 11:0 9 AM EDT us Margarita Calvo TEST LAB TECHNICIAN IMG XR PROCEDURES Final Resul t documented in this encounter Visit Diagnoses Not on filedocumented in this encounter Additional Health Concerns Infection Onset Date Last Indicated Resolved Time C. difficile Rule-Out 01/27/2025 01/27/20252024 12:12 AM EDT documented as of this encounter Care Teams Truck Loader Relationship Specialty Start Date End Date Caridad Oliver APRN [address] [place] [address] PCP - General 02/22/21 documented as of this encounter
--- OUTSIDE RECORDS SUMMARY | 2025-03-22 14:12 | XMS_ITS | Encounter Summary ---
Author Organization Healthcare Address [address] [place] [address] Care Team Providers Care City Constable Name Role Phone Caridad Oliver JALIL Primary Care Provider [phone] Encounter Details Date Type Department Care Team (Late Contact Info) Description 05/27/2024 Orders Only External Location [address] [place] [address] Provider, External Social History Tobacco Use Types Packs/Day Years Used Date Smoking Tobacco: Former Cigarettes 0.5 26.4 S tarted: 1998 Smokeless Tobacco: Never Alcohol Use Standard Drinks/Week Comments Never 0 (1 standard drink = 0.6 oz pur e alcohol) Comments Unknown Sex and Gender Information Value Date Recorded Sex Assigned at Not on file Legal Sex Female 8:02 PM EDT Gender Identity Not on file Sexual Orientation Not on file documented as of this encounter Plan of Treatment Upcoming Encounters Date Type Department Care Team (Late Contact Info) Description 08/31/2025 8:30 AM EST Appointment [facility] H Radiology [address] [place] [address] 08/31/2025 9:30 AM EST Office Visit Pav CC Head, Neck & Respiratory [address] [facility], [address]nd [place] [address] Jeffery Devine, DO [address] [phone] documented as of this encounter Procedures Procedure Name Priority Date/Time Associated Diagnosis Comments FL OUTSIDE IMAGES 05/27/2024 8:08 AM EDT documented in this encounter Results * FL OUTSIDE IMAGES (05/27/2024 8:08 AM EDT) Anatomical Region Laterality Modality Radiographic Laura ging 05/27/2024 8:08 AM EDT us External Provider IMG FLUOROSCOPY PROCEDURES Fin al Result documented in this encounter Visit Diagnoses Not on filedocumented in this encounter Additional Health Concerns Infection Onset Date Last Indicated Resolved Time C. difficile Rule-Out 01/27/2025 01/27/20252024 12:12 AM EDT Assessment Noted Time A fall risk assessment has been complete d for the patient 04/15/2024 12:12 PM EDT A Body Mass Index follow-up plan has been documented for the patient 04/18/2024 12:31 PM EDT documented as of this encounter Care Teams City Constable Relationship Specialty Start Date End Date Caridad Oliver APRN [address] [place] [address] PCP - General 02/22/21 documented as of this encounter
--- OUTSIDE RECORDS SUMMARY | 2025-03-22 14:12 | XMS_ITS | Encounter Summary ---
Author Organization [employer] Address [address] [place] [address] Care Team Providers Care In Store Marketer Name Role Phone Leonora Hansen APRN Primary Care Provider [phone] Encounter Details Date Type Department Care Team (Late st Contact Info) Description 12/22/2018 Transcribed Document [facility] Family Medicine [address] [place] [address] ProviderJj MD [address] [place] [address] Social History Tobacco Use Types Packs/Day Years Used Date Smoking Tobacco: Never Assessed Comments Unknown Sex and Gender Information Value Date Recorded Sex Assigned at Not on file Legal Sex Female 5:16 PM CDT Gender Identity Not on file Sexual Orientation Not on file documented as of this encounter Miscellaneous Notes * Cerner Conversion Note - jJ ProviderMD - 12/22/2018 9:01 AM CDT Discharge Instructions Entered On: 12/22/2018 9:02 EDT Performed On: 12/22/2018 9:01 EDT by CATRACHITO PAZ RN DC Instructions HWD Stroke/TIA Discharge Ins : N/A Heart Failure Discharge Ins : N/A Warfarin Discharge Ins : N/A Diet After Discharge : Regular diet as tolerated Activity After Discharge : Rest and relax today, No strenuous activities Driving After Discharge : Do not drive May Return To Work/School : 12/23/18 Showering/Bathing : May shower Notify Provider of : any problems or concerns CATRACHITO PAZ RN - 12/22/2018 9:01 EDT Electronically signed by Margi, [facility] Conversion Tube Sorter Cerner at 01/28/2023 8:06 AM CDT documented in this encounter Plan of Treatment Not on file documented as of this encounter Visit Diagnoses Not on filedocumented in this encounter Care Teams In Store Marketer Relationship Specialty Start Date End Date Leonora Hansen, GLASS CUTTING MACHINE OPERATOR [address] [place] [address] PCP - General Nurse Practitioner 06/03/23 documented as of this encounter
== END 2025-03-22 23:59 | disposition home or self-care (01) ==
LOC: RAD 14:02
PROVIDERS: PCP Nurse Practitioner Family; Visit Provider Nurse Practitioner Family
DX: Z12.31 Encounter for screening mammogram for malignant neoplasm of breast (principal); R92.323 Mammographic fibroglandular density, bilateral breasts
CPT/HCPCS: 77063; 77067

== ENCOUNTER 2025-03-23 12:42 | Outpatient (CLI) | payer BC, SELFPAY ==
--- OUTSIDE RECORDS SUMMARY | 2025-01-25 05:44 | XMS_ITS | Encounter Summary ---
Author Organization Healthcare Address [address] [id number] Care Team Providers Care Director Microbiology Name Role Phone Caridad Oliver APRN Primary Care Provider [phone] Reason for Referral * Home Health (Routine) - Authorized Specialty Diagnoses / Procedures Referred By Lorin biggs Referred To Contact Home Health Services / Cardiology Diagnoses Achalasia Jeffery Devine, [address] [address] Phone: tel: fax: Referral ID Status Reason Start Date Expiration Date Visits Requested Visits Authorized [id number] Authorized Specialty Services Required 02/01/2025 08/03/2026 999 999 Reason for Visit * Auth/Cert (Routine) Specialty Diagnoses / Procedures Referred By Lorin biggs Referred To Contact Diagnoses Achalasia Achalasia Procedures OK ESOPHAGECTOMY DISTAL 2/3 W/LAPAROSCOPIC MOBLJ MINIMALLY INVASIVE ESOPHAGECTOMY, LAPAROSCOPIC Jeffery Devine DO [address] [address] Phone: tel: fax: [facility] OPER[facility] ROOM [address] [place] [address] Phone: tel: Referral ID Status Reason Start Date Expiration Date Visits Re quested Visits Authorized [id number] 1 1 Encounter Details Date Type Department Care Team (Latest Contact Info) Description 01/25/2025 5:44 AM EDT - 02/01/2025 2:38 PM EDT Hospital Encounter [facility] Inpatient [address] [place] [address] Jeffery Devine, DO [address] [id number] Achalasia Discharge Disposition: Home or Self Care [...] any time in the past 12 m [facility], were you homeless or living in a [place] health care facility (including now)? No 01/26/2025 Utilities Answer Date [...] 4 - ask for the thoracic surgeon medical receptionist medical assistant. documented in this encounter Medications at Time of Discharge cetirizine (ZyrTEC) 10 MG tablet Take 1 tablet by mouth daily as needed for allergies or rhinitis. 12/08/2023 escitalopram (Lexapro) 10 MG tablet Take 1 tablet by mouth nightly. Nutritional Supplements (isosource 1.5 Pastor/mL) 55 mL by Per J Tube route every 1 (one) hour. 00763 mL 5 01/19/2025 5 pantoprazole (Protonix) 40 [...] doses at the same time unless your commissions coordinator or doctor tells you to. ?? There are many medicines that can interfere with your Protonix. Always check with your commissions coordinator or doctor before taking any other medicine, including ojrh-dev-sfdmkot medicines (for example aspirin), vitamins, herbals, or [...] urination ?? Increased thirst Please call your commissions coordinator, pharmacist, or doctor if you have any questions about thismedicine. * Kera Mahan - 02/01/2025 12:49 PM EDT Images from the original note were not included. Roxicodone - Video Learn how Roxicodone works to relieve your pain, possible side effects to be aware of, and how to properly use and store this medication. To view the video go to this web address: [email or web address] Or, scan this QR code with your smart phone ?? [facility] * Kera Mahan - 02/01/2025 12:49 PM EDT Images from the original note were not included. [id number] Metoclopramide Brand Name(s): Clopra??, Maxolon??, Metozolv?? ODT, [...] doctor or pharmacist will give you the radio communications superintendent's patient information sheet (Medication Guide) when you begin treatment with metoclopramide and each time you refill your prescription. Read the information carefully and ask your doctor or pharmacist if you have any questions. You can also visit the Food and Drug Administration (FDA) website (https://www.fda.gov/Drugs/DrugSafety/btd509804.htm) or the radio communications superintendent's website to obtain the Medication Guide. Talk [...] balance); high blood pressure; depression; breast cancer; asthma;oriwvju-4-hrgkarcim dehydrogenase (G-6PD) deficiency (an inherited blood disorder); [...] of all of the prescription and nonprescription (dgyb-xss-ggqpxzm) medicines you are taking, as well as [...] or pharmacist about specific clinical use. The [employer] represents that the information provided hereunder was formulated with a reasonable standard of care, and in conformity with professional standards in the field. The [employer] makes no representations or warranties, express or implied, including, but not limited to, any implied warranty of merchantability and/or fitness for a particular purpose, with respect to such information and specifically disclaims all such warranties. Users are advised that decisions regarding drug therapy are complex medical decisions requiring the independent, informed decision of an appropriate health social worker palliative care, and the information is provided for informational purposes only. The entire monograph for a drug should be reviewed for a thorough understanding of the drug's actions, uses and side effects. The [employer] does not endorse or recommend the use of any drug.The information is not a substitute for medical care. AHFS?? Patient Medication Information?. ?? Copyright, 2023. The [employer]??, [address] [facility] [address] [facility], [address], [place], [place]. All Rights Reserved. Duplication for commercial use must be authorized by [facility]. Selected Revisions: July 26, 2018. AHFS?? Patient Medication Information?. ?? Copyright, 2024 * Bereket LindquistNOEMI - Kera Garcia - 02/01/2025 12:49 PM EDT Images from the original note were not included. [id number] Lidocaine Transdermal Patch Brand Name(s): Absorbine Jr?? Plus, Aspercreme Patch??, Dermalid??, Lidocare??, Lidoderm??, Salonpas??, Ztlido??, Synera?? (containing lidocaine and tetracaine); also available generically WHY is this medicine prescribed? Prescription lidocaine transdermal (Dermalid, Lidoderm, Ztildo) is used to relieve the pain of post-herpetic neuralgia (PHN; burning, stabbing pains, or aches that may last for months or years after a shingles infection). Nonprescription (qnrp-gbe-ichtzej) lidocaine (Absorbine Jr, Aspercreme, Lidoca re, Salonpas, [...] or doctor for a copy of the radio communications superintendent's information for the patient. Are there OTHER [...] if you have or have ever had ceefisr-9-nqldbxthi dehydrogenase (G-6PD) deficiency (an inherited blood disorder), [...] and out of their sight and reach. https://www.upandWalkabout.org Unneeded medications should be disposed of in [...] be awakened, immediately call emergency services at 601. Symptoms of overdose may include: ?? lightheadedness [...] of all of the prescription and nonprescription (jttk-aav-gasmmie) medicines you are taking, as well as [...] or pharmacist about specific clinical use. The [employer] represents that the information provided hereunder was formulated with a reasonable standard of care, and in conformity with professional standards in the field. The [employer] makes no representations or warranties, express or implied, including, but not limited to, any implied warranty of merchantability and/or fitness for a particular purpose, with respect to such information and specifically disclaims all such warranties. Users are advised that decisions regarding drug therapy are complex medical decisions requiring the independent, informed decision of an appropriate health social worker palliative care, and the information is provided for informational purposes only. The entire monograph for a drug should be reviewed for a thorough understanding of the drug's actions, uses and side effects. The [employer] does not endorse or recommend the use of any drug.The information is not a substitute for medical care. AHFS?? Patient Medication Information?. ?? Copyright, 2023. The [employer]??, [address] [facility] [address] [facility], [place], [place]. All Rights Reserved. Duplication for commercial use must be authorized by [facility]. Selected Revisions: March 26, 2021. AHFS?? Patient Medication Information?. ?? Copyright, 2024 * [facility] - Kera Garcia - 02/01/2025 12:49 PM EDT Images from the original note were not included. [id number] Ibuprofen Brand Name(s): Addaprin??, Advil??, Cedaprin??, I-Prin??, [...] doctor or pharmacist will give you the radio communications superintendent's patient information sheet (Medication Guide) when you begin treatment with prescription ibuprofen and each time you refill your prescription. Read the information carefully and ask your doctor or pharmacist if you have any questions. You can also visit the Food and Drug Administration (FDA) website (https://www.fda.gov/Drugs/DrugSafety/dho122518.htm) or the radio communications superintendent's website to obtain the Medication Guide. WHY [...] of all of the prescription and nonprescription (bmdw-pyv-aygnsyh) medicines you are taking, as well as [...] or pharmacist about specific clinical use. The [employer] represents that the information provided hereunder was formulated with a reasonable standard of care, and in conformity with professional standards in the field. The [employer] makes no representations or warranties, express or implied, including, but not limited to, any implied warranty of merchantability and/or fitness for a particular purpose, with respect to such information and specifically disclaims all such warranties. Users are advised that decisions regarding drug therapy are complex medical decisions requiring the independent, informed decision of an appropriate health social worker palliative care, and the information is provided for informational purposes only. The entire monograph for a drug should be reviewed for a thorough understanding of the drug's actions, uses and side effects. The [employer] does not endorse or recommend the use of any drug.The information is not a substitute for medical care. AHFS?? Patient Medication Information?. ?? Copyright, 2023. The [employer]??, [address] [facility] [address] [facility], [address], [place], [place]. All Rights Reserved. Duplication for commercial use must be authorized by [facility]. Selected Revisions: June 26, 2023. AHFS?? Patient Medication Information?. ?? Copyright, 2024 * Bereket Hartman - Kera Garcia - 02/01/2025 12:49 PM EDT Images from the original note were not included. [id number] Acetaminophen Brand Name(s): Actamin??, Feverall??, Panadol??, Tempra Quicklets??, Tylenol??, Dayquil?? (as a combination product containing Acetaminophen, Dextromethorphan, Pseudoephedrine), NyQuil Cold/Flu Relief?? (as a combination product containing Acetaminophen, Dextromethorphan, Doxylamine), Percocet?? (as a combination product containing Acetaminophen, Oxycodone) APAP, T-fjknnc-ecox-aminophenol, Paracetamol IMPORTANT WARNING: Taking too much acetaminophen [...] measuring cup or syringe provided by the radio communications superintendent to measure each dose of the solution [...] and out of their sight and reach. https://www.[employer] SystemsndWalkabout.org Unneeded medications should be disposed of in [...] of all of the prescription and nonprescription (dzjg-feh-sxfwjok) medicines you are taking, as well as [...] or pharmacist about specific clinical use. The [employer] represents that the information provided hereunder was formulated with a reasonable standard of care, and in conformity with professional standards in the field. The [employer] makes no representations or warranties, express or implied, including, but not limited to, any implied warranty of merchantability and/or fitness for a particular purpose, with respect to such information and specifically disclaims all such warranties. Users are advised that decisions regarding drug therapy are complex medical decisions requiring the independent, informed decision of an appropriate health social worker palliative care, and the information is provided for informational purposes only. The entire monograph for a drug should be reviewed for a thorough understanding of the drug's actions, uses and side effects. The [employer] does not endorse or recommend the use of any drug.The information is not a substitute for medical care. AHFS?? Patient Medication Information?. ?? Copyright, 2023. The [employer]??, [address] [facility] [address] [facility], [address], [place], [place]. All Rights Reserved. Duplication for commercial use must be authorized by [facility]. Selected Revisions: June 26, 2023. AHFS?? [...] Your doctor will see you at the [facility]. ?? Your doctor may give [...] Clinic at . Or you can call [facility] at . Special Instructions: 01/22 * Discharge [...] a tub bath for 2 weeks. - [place]/Stitches will be removed at follow up appointment [...] Clinic discharge # - For urgent questions/concerns: [facility] hotline: , option 4 - ask for the thoracic surgeon medical receptionist medical assistant. Medications: - You should take Tylenol and/or [...] DO PCP name and Address: Caridad Oliver, BOOM PUMP OPERATOR [address] [place] [address] / [address] [address] Referring provider name and address: No referring [...] Your Medications These medications were sent to [facility] - [place], [place] - [address] [facility] [id number] acetaminophen 160 MG/5ML solution ibuprofen 100 MG/5ML [...] a tub bath for 2 weeks. - [place]/Stitches will be removed at follow up appointment. [...] Clinic discharge # - For urgent questions/concerns: [facility] hotline: , option 4 - ask for the thoracic surgeon medical receptionist medical assistant. Outpatient Follow-Up No future appointments. Test Results [...] Note Candido Rivera 54 y.o. female CSN: [id number] Admission: 01/25/2025 5:44 AM Primary Problem: Achalasia Primary Blast Furnace Keeper: Primary Caregiver: Self Assistance Available at Discharge: Current Outpatient/Agency/Support Group: infusion therapy, home Availability of Care Givers (#Hours): 24 hours Family/Blast Furnace Keeper(s) Willingness Assessed to care for patient at home: Yes Family/Blast Furnace Keeper(s) Readiness Assessed to care for patient at [...] provide transport home. Resumption order/referral sent to [employer] with Bella aware. No other needs. Que Sahu RN Case Puttying And Calking Supervisor 4 * Hospital Course - Jimi Lawrence [...] from the original note were not included. [facility] Department of Surgery Section of Thoracic [...] Note Candido Rivera 54 y.o. female CSN: [id number] Room/Bed 122/122A Nutrition evaluation type: assessment Reason [...] (Calculated): 29.1 Weight Evaluation: Overweight (BMI 25-29.9) [place] Body Weight (kg): 52.3 Percent [place] Body Weight: 142 Adjusted Body Weight (kg): [...] oz) Estimated Needs: Kcal/ K-35 Kcal Provided: 9340-9163 Kcal Needs Based On: Adjusted weight Gm [...] Education Provided: Will monitor Pertinent home medications: Restorationist needs: Nutrition Focused Physical Exam: Physical exam [...] Note Candido Rivera 54 y.o. female CSN: [id number] Admission: 01/25/2025 5:44 AM Primary Problem: Achalasia [...] from the original note were not included. [facility] Department of Surgery Section of Thoracic Surgery [...] from the original note were not included. [facility] Department of Surgery Section of Thoracic Surgery ICU Progress Note 01/29/25 Candido Rivera History of Present Illness Candido Rivera is a 54 y.o. female PMHx GERD, end stage achalasia s/p Heller myotomy and [place] fundoplication (2016) 4 Days Post-Op from a [...] bleeding or hematoma. Vein images sent to [facility]. Consult completed. * Care Plan - Duong [...] from the original note were not included. [facility] Department of Surgery Section of Thoracic Surgery [...] from the original note were not included. [facility] Department of Surgery Section of Thoracic [...] Note Candido Rivera 54 y.o. female CSN: [id number] Room/Bed 236/236A Nutrition evaluation type: assessment Reason [...] (Calculated): 28.91 Weight Evaluation: Overweight (BMI 25-29.9) [place] Body Weight (kg): 52.3 Percent [place] Body Weight: 141 Adjusted Body Weight (kg): [...] oz) Estimated Needs: Kcal/ K-35 Kcal Provided: 7965-2946 Kcal Needs Based On: Adjusted weight Gm Protein/ Kg : 1.3-1.6 Protein Provided: 75-92 Protein Needs Based On: Adjusted weight Metabolic Cart Study Results: Current Nutrition Intake: Diet Order: NPO Diet Experience and Nutrition History: Diet Education Provided: Will monitor Pertinent home medications: Restorationist needs: Nutrition Focused Physical Exam: Unable to [...] Note Candido Rivera 54 y.o. female CSN: [id number] Admission: 01/25/2025 5:44 AM Primary Problem: Achalasia Security Officer reviewed chart and spoke with the patient at bedside to complete this Initial Case Management Assessment. PCP: Rogerio Mays Emergency Contact: Extended Emergency Contact Information Primary Emergency Contact: Carlee Rivera Mobile Relation: Sister Law Librarian needed? No Insurance: Primary Visit Coverage Payer Plan Sponsor Code Group Number Group Name AMANDA PATEL [employer]RI[employer] [id number] Primary Visit Coverage Subscriber Subscriber ID Subscriber Name Subscriber SSN Subscriber Address [id number] JOSECANDIDO Meena [id number] [place] [address] [place] [id number] Patient information: Primary Caregiver: Self Support System: Immediate family Daily Living Activities: Functional Status: Independent Living Arrangements: Children Type of Residence: Private residence [address] [place] [address] Smoker in the Home?: No Current DME: [...] DME Provider: Garry Living Will/Advance Directive/Power of Strategic Manager /Guardian: Have you reviewed your Advance Directive [...] PCP is Hood Mays. Patient has [employer] insurance and uses [facility] pharmacy in [place]. No CM/SW needs identified. Will continue to follow and assist. Carlee Díaz RN * Progress Notes - Di Deluca MD - 01/26/2025 6:31 AM EDT Images from the original note were not included. [facility] Department of Surgery Section of Thoracic Surgery ICU Progress Note 01/26/25 Candido Rivera History of Present Illness Candido [...] from the original note were not included. [facility] Department of Surgery Division of Thoracic [...] nursing staff. I have notified senior resident/attending medical receptionist medical assistant with any issues or concerns. Jimi Lawrence DO, PGY1 Thoracic Surgery * Op Note - Jeffery Devine DO - 01/25/2025 8:55 AM EDT Operative Note Date: 01/25/25 Location: [facility] OR Name: Candido Rivera, : 1970, Diagnoses: Pre-op Diagnosis End Stage Achalasia Post-op Diagnosis End Stage Achalasia Procedure(s): Bronch, EGD, Minimally Invasive Estelita esophagectomy, Lap J tube insertion Attending Surgeon(s): * Jeffery Devine - Primary Agricultural Engineering Technician(s): * Yeison Gallego MD - Resident - [...] Output (mL) 0 mL 01/26/25 0600 NG/OG [place] Sump Nasogastric Right nostril (Active) Placement Verification [...] encircled with a Harken clamp and a [place] drain was passed. The esophagus was mobilized [...] mobilized well into the mediastinum in the [place] drain was delivered. The conduit was then tacked to thespecimen for delivery into the neck. We then turned our attention to the neck portion of the procedure a incision was made along the anterior border of the SCM. We carried dissection down bluntly to the prevertebral fascia. A blunt finger sweep was performed identifying the [place] drain the [place] drain was delivered into the neck as well as the esophagus stomach and conduit. The proximal esophagus was divided with a purple Endo-CURTIS stapler the specimen was test off the table and sent to pathology for evaluation. An NGT was passed under direct visualization. A stapled gruy-lm-divj anastomosis per was performed with sequential firings [...] from the original note were not included. [facility] Department of Surgery Section of Thoracic [...] Tube route every 1 (one) hour., Disp: 54202 mL, Rfl: 5 Physical exam: There were [...] Upcoming Encounters Date Type Department Care Team ([facility] st Contact Info) Description 08/31/2025 8:30 AM EST Appointment [facility] Radiology [address] [place] [address] 08/31/2025 9:30 AM EST Office Visit [facility] Neck [facility] Respiratory [address] [facility]nd [place] [address] Jeffeyr Devine, DO [address] [facility] [address] [place] [id number] Scheduled Referrals Name Type Priority Associated Diagnoses Order Schedule Discharge Ambulatory referral to NON [facility] Outpatient Referral Routine Achalasia 1 [...] EXAM Routine 01/25/2025 12:18 PM EDT Achalasia [place] ESOPHAGECTOMY DISTAL 2/3 W/LAPAROSCOPIC MOBLJ 01/25/2025 7:50 [...] LAB HEMATOLOGY METHOD 02/01/2025 10:20 AM EDT [facility] RBC Count 3.60(L) 3.90 - 5.20 10*6/uL LAB HEMATOLOGY METHOD 02/01/2025 10:20 AM EDT [facility] HGB 10.3(L) 11.2 - 15.7 g/dL LAB HEMATOLOGY METHOD 02/01/2025 10:20 AM EDT [facility] HCT 31.9(L) 34.0 - 45.0 % LAB HEMATOLOGY METHOD 02/01/2025 10:20 AM EDT [facility] Platelet Count 259 155 - 369 10*3/uL LAB HEMATOLOGY METHOD 02/01/2025 10:20 AM EDT [facility] MCV 89 79 - 98 fL LAB HEMATOLOGY METHOD 02/01/2025 10:20 AM EDT [facility] MCH 28.6 26.0 - 32.0 pg LAB HEMATOLOGY METHOD 02/01/2025 10:20 AM EDT [facility] MCHC 32.3 30.7 - 35.5 g/dL LAB HEMATOLOGY METHOD 02/01/2025 10:20 AM EDT [facility] RDW 14.1 11.5 - 14.5 % LAB HEMATOLOGY METHOD 02/01/2025 10:20 AM EDT [facility] MPV 10.6 8.8 - 12.5 fL LAB HEMATOLOGY METHOD 02/01/2025 10:20 AM EDT [facility] nRBC 0.0 <=0.0 per 100 WBCs LAB HEMATOLOGY METHOD 02/01/2025 10:20 AM EDT [facility] Blood Venous blood specimen / Unknown Venipuncture / Unknown 02/01/2025 9:57 AM EDT 02/01/2025 10:13 AM EDT us Diamante Weber BOOM PUMP OPERATOR LAB BLOOD ORDERABLES Final Re sult [facility] [address] [place] [address] * Magnesium, Plasma (02/01/2025 9:57 AM EDT) Magnesium, Plasma 2.2 1.9 - 2.4 mg/dL 02/01/2025 10:43 AM EDT [facility] Blood Venous blood specimen / Unknown Venipuncture / Unknown 02/01/2025 9:57 AM EDT 02/01/2025 10:13 AM EDT Diamante Weber BOOM PUMP OPERATOR LAB BLOOD ORDERABLES Final Re sult Performing Organization Address City/[facility]/ZIP Co de Phone Number [facility] [address] [place] [address] * (ABNORMAL) Renal Function Panel, Plasma (02/01/2025 9:57 AM EDT) Glucose, Plasma 98 74 - 99 mg/dL 02/01/2025 10:43 AM EDT [facility] BUN, Plasma 15 7 - 21 mg/dL 02/01/2025 10:43 AM EDT [facility] Creatinine, Plasma 0.56(L) 0.60 - 1.10 mg/dL 02/01/2025 10:43 AM EDT [facility] BUN/Creatinine Ratio 27 02/01/2025 10:43 AM EDT [facility] Sodium, Plasma 140 136 - 145 mmol/L 02/01/2025 10:43 AM EDT [facility] Potassium, Plasma 4.2 3.6 - 4.9 mmol/L 02/01/2025 10:43 AM EDT [facility] Chloride, Plasma 104 97 - 107 mmol/L 02/01/2025 10:43 AM EDT [facility] CO2, Plasma 25 22 - 29 mmol/L 02/01/2025 10:43 AM EDT [facility] Anion Gap 11 6 - 16 mmol/L 02/01/2025 10:43 AM EDT [facility] Total Calcium, Plasma 8.7(L) 8.9 - 10.2 mg/dL 02/01/2025 10:43 AM EDT [facility] Phosphorus, Plasma 3.9 2.5 - 4.5 mg/dL 02/01/2025 10:43 AM EDT [facility] Albumin, Plasma 3.2(L) 3.5 - 5.2 g/dL 02/01/2025 10:43 AM EDT [facility] eGFRcr 110.0 mL/min/1.7 3m*2 02/01/2025 10:43 AM EDT [facility] Comment:Reported eGFRcr in m L/min/1.73m2 is based the CKD-EPI 2020 equation that does not use a race coefficient. Blood Venous blood specimen / Unknown Venipuncture / Unknown 02/01/2025 9:57 AM EDT 02/01/2025 10:13 AM EDT us Diamante Weber BOOM PUMP OPERATOR LAB BLOOD ORDERABLES Final Re sult [facility] [address] [place] [address] * XR Chest 1 View (02/01/2025 6:56 [...] MD on 02/01/2025 9:35 AM Diamante Weber BOOM PUMP OPERATOR IMG XR PROCEDURES Final Resul t * [...] Comment 02/01/2025 12:00 AM EDT [facility] Author ID [id number], Saichon 02/01/2025 12:00 AM EDT [facility] Device ID [id number] 02/01/2025 12:00 AM EDT [facility] Specimen Type POC Capillary 02/01/2025 12:00 AM EDT [facility] Blood Capillary blood specimen / Unknown 01/31/2025 11:58 PM EDT 02/01/2025 12:00 AM EDT Jeffery Devine DO LAB POINT OF CARE TE ST DOCKED DEVICE UNSOLICITED RESULTS Final Result [facility] [address] [place] [address] * (ABNORMAL) POCT glucose meter (01/31/2025 5:01 PM EDT) [facility] POCT Glucose 152(H) 74 - 99 mg/dL [...] 01/31/2025 5:03 PM EDT [facility] Author ID [email or web address] 025 5:03 PM EDT [facility] Device ID [id number] 01/31/2025 5:03 PM EDT [facility] Specimen Type POC Capillary 01/31/2025 5:03 PM EDT [facility] Blood Capillary blood specimen / Unknown 01/31/2025 5:01 PM EDT 01/31/2025 5:03 PM EDT Jeffery Devine DO LAB POINT OF CARE TE ST DOCKED DEVICE UNSOLICITED RESULTS Final Result [facility] [address] [place] [address] * (ABNORMAL) POCT glucose meter (01/31/2025 12:01 PM EDT) [facility] POCT Glucose 117(H) 74 - 99 mg/dL [...] 01/31/2025 12:03 PM EDT [facility] Author ID MattamraYair 025 12:03 PM EDT [facility] Device ID [id number] 01/31/2025 12:03 PM EDT [facility]ARE [facility] Specimen Type POC Capillary 01/31/2025 12:03 PM EDT [facility] Blood Capillary blood specimen / Unknown 01/31/2025 12:01 PM EDT 01/31/2025 12:03 PM EDT us Jeffery Devine DO LAB POINT OF CARE TE ST DOCKED DEVICE UNSOLICITED RESULTS Final Result Performing Organization Address [facility] de Phone Number HEALTHCARE LAB [address] [place] [address] * (ABNORMAL) Magnesium, Plasma (01/31/2025 10:50 AM EDT) Magnesium, Plasma 1.7(L) 1.9 - 2.4 mg/dL 01/31/2025 12:31 PM EDT [facility] Blood Venous blood specimen / Unknown Venipuncture / Unknown 01/31/2025 10:50 AM EDT 01/31/2025 11:07 AM EDT us Jeffery Devine DO LAB BLOOD ORDERABLES Final Re sult Performing Organization Address [facility] Co de Phone Number [facility] [address] [place] [address] * (ABNORMAL) Renal Function Panel, Plasma (01/31/2025 10:50 AM EDT) Glucose, Plasma 125(H) 74 - 99 mg/dL 01/31/2025 12:31 PM EDT [facility] BUN, Plasma 14 7 - 21 mg/dL 01/31/2025 12:31 PM EDT [facility] Creatinine, Plasma 0.57(L) 0.60 - 1.10 mg/dL 01/31/2025 12:31 PM EDT [facility] BUN/Creatinine Ratio 25 01/31/2025 12:31 PM EDT [facility] Sodium, Plasma 139 136 - 145 mmol/L 01/31/2025 12:31 PM EDT [facility] Potassium, Plasma 4.3 3.6 - 4.9 mmol/L 01/31/2025 12:31 PM EDT [facility] Chloride, Plasma 104 97 - 107 mmol/L 01/31/2025 12:31 PM EDT [facility] CO2, Plasma 21(L) 22 - 29 mmol/L 01/31/2025 12:31 PM EDT [facility] Anion Gap 14 6 - 16 mmol/L 01/31/2025 12:31 PM EDT [facility] Total Calcium, Plasma 8.5(L) 8.9 - 10.2 mg/dL 01/31/2025 12:31 PM EDT [facility] Phosphorus, Plasma 3.2 2.5 - 4.5 mg/dL 01/31/2025 12:31 PM EDT [facility] Albumin, Plasma 3.3(L) 3.5 - 5.2 g/dL 01/31/2025 12:31 PM EDT [facility] eGFRcr 109.5 mL/min/1.7 3m*2 01/31/2025 12:31 PM EDT [facility] Comment:Reported eGFRcr in m L/min/1.73m2 is based the CKD-EPI 2020 equation that does not use a race coefficient. Blood Venous blood specimen / Unknown Venipuncture / Unknown 01/31/2025 10:50 AM EDT 01/31/2025 11:07 AM EDT Jeffery Devine DO LAB BLOOD ORDERABLES Final Re sult [facility] [address] [place] [address] * (ABNORMAL) CBC W/O Differential (01/31/2025 10:50 AM EDT) WBC Count 12.95(H) 3.70 - 10.30 10*3/uL LAB HEMATOLOGY METHOD 01/31/2025 11:24 AM EDT [facility] RBC Count 3.73(L) 3.90 - 5.20 10*6/uL LAB HEMATOLOGY METHOD 01/31/2025 11:24 AM EDT [facility] HGB 11.0(L) 11.2 - 15.7 g/dL LAB HEMATOLOGY METHOD 01/31/2025 11:24 AM EDT [facility] HCT 32.6(L) 34.0 - 45.0 % LAB HEMATOLOGY METHOD 01/31/2025 11:24 AM EDT [facility] Platelet Count 263 155 - 369 10*3/uL LAB HEMATOLOGY METHOD 01/31/2025 11:24 AM EDT [facility] MCV 87 79 - 98 fL LAB HEMATOLOGY METHOD 01/31/2025 11:24 AM EDT [facility] MCH 29.5 26.0 - 32.0 pg LAB HEMATOLOGY METHOD 01/31/2025 11:24 AM EDT [facility] MCHC 33.7 30.7 - 35.5 g/dL LAB HEMATOLOGY METHOD 01/31/2025 11:24 AM EDT [facility] RDW 14.5 11.5 - 14.5 % LAB HEMATOLOGY METHOD 01/31/2025 11:24 AM EDT [facility] MPV 10.4 8.8 - 12.5 fL LAB HEMATOLOGY METHOD 01/31/2025 11:24 AM EDT [facility] nRBC 0.0 <=0.0 per 100 WBCs LAB HEMATOLOGY METHOD 01/31/2025 11:24 AM EDT [facility] Blood Venous blood specimen / Unknown Venipuncture / Unknown 01/31/2025 10:50 AM EDT 01/31/2025 11:08 AM EDT us Jeffery Devine DO LAB BLOOD ORDERABLES Final Re sult [facility] [address] [place] [address] * XR Chest 1 View (01/31/2025 6:07 [...] POCT glucose meter (01/31/2025 5:28 AM EDT) [facility] POCT Glucose 93 74 - 99 mg/dL [...] testing. Comment 01/31/2025 5:29 AM EDT [facility] Children'S Author ID Yair Dia 025 5:29 AM EDT [facility] Device ID [id number] 01/31/2025 5:29 AM EDT [facility] Specimen Type POC Capillary 01/31/2025 5:29 AM EDT [facility] Blood Capillary blood specimen / Unknown 01/31/2025 5:28 AM EDT 01/31/2025 5:29 AM EDT us Jeffery Devine DO LAB POINT OF CARE TE ST DOCKED DEVICE UNSOLICITED RESULTS Final Result Performing Organization Address City/[facility] Co de Phone Number HEALTHCARE LAB [address] [place] [address] * (ABNORMAL) POCT glucose meter (01/30/2025 11:47 PM EDT) [facility] POCT Glucose 118(H) 74 - 99 mg/dL [...] Comment 01/30/2025 11:51 PM EDT [facility] Children'S Author ID Denise Nuno 01/30/2025 11:51 PM EDT [facility] Device ID [id number] 01/30/2025 11:51 PM EDT [facility]ALTH[facility]ARE LAB Specimen Type POC Capillary 01/30/2025 11:51 PM EDT [facility] Blood Capillary blood specimen / Unknown 01/30/2025 11:47 PM EDT 01/30/2025 11:51 PM EDT Jeffery Devine DO LAB POINT OF CARE TE ST DOCKED DEVICE UNSOLICITED RESULTS Final Result Performing Organization Address [facility] de Phone Number [facility] [address] [place] [address] * (ABNORMAL) POCT glucose meter (01/30/2025 5:44 PM EDT) [facility] POCT Glucose 125(H) 74 - 99 mg/dL [...] 01/30/2025 5:46 PM EDT [facility] Children'S Author ID Lian Rene 025 5:46 PM EDT [facility]ARE [facility] Device ID [id number] 01/30/2025 5:46 PM EDT [facility]ARE [facility] Specimen Type POC Capillary 01/30/2025 5:46 PM EDT [facility] Blood Capillary blood specimen / Unknown 01/30/2025 5:44 PM EDT 01/30/2025 5:46 PM EDT us Jeffery eDvine DO LAB POINT OF CARE TE ST DOCKED DEVICE UNSOLICITED RESULTS Final Result Performing Organization Address City/[facility] Co de Phone Number [facility] [address] [place] [address] * POCT glucose meter (01/30/2025 12:06 PM EDT) [facility] POCT Glucose 78 74 - 99 mg/dL [...] 01/30/2025 12:08 PM EDT [facility] Children[facility]S Author ID Lian Rene 025 12:08 PM EDT [facility] Device ID [id number] 01/30/2025 12:08 PM EDT [facility]ARE [facility] Specimen Type POC Capillary 01/30/2025 12:08 PM EDT [facility] Blood Capillary blood specimen / Unknown 01/30/2025 12:06 PM EDT 01/30/2025 12:08 PM EDT us Jeffery Devine DO LAB POINT OF CARE TE ST DOCKED DEVICE UNSOLICITED RESULTS Final Result Performing Organization Address City/[facility] de Phone Number [facility] [address] [place] [address] * Magnesium, Plasma (01/30/2025 10:22 AM EDT) [facility] Magnesium, Plasma 1.9 1.9 - 2.4 mg/dL 01/30/2025 11:11 AM EDT [facility] Blood Venous blood specimen / Unknown Venipuncture / Unknown 01/30/2025 10:22 AM EDT 01/30/2025 10:36 AM EDT Jeffery Devine DO LAB BLOOD ORDERABLES Final Re sult [facility] [address] [place] [address] * (ABNORMAL) Renal Function Panel, Plasma (01/30/2025 10:22 AM EDT) Glucose, Plasma 102(H) 74 - 99 mg/dL 01/30/2025 11:11 AM EDT [facility] BUN, Plasma 9 7 - 21 mg/dL 01/30/2025 11:11 AM EDT [facility] Creatinine, Plasma 0.55(L) 0.60 - 1.10 mg/dL 01/30/2025 11:11 AM EDT [facility] BUN/Creatinine Ratio 16 01/30/2025 11:11 AM EDT [facility] Sodium, Plasma 143 136 - 145 mmol/L 01/30/2025 11:11 AM EDT [facility] Potassium, Plasma 4.2 3.6 - 4.9 mmol/L 01/30/2025 11:11 AM EDT [facility] Comment:Hemolyzed, result ma y be falsely increased. Chloride, Plasma 107 97 - 107 mmol/L 01/30/2025 11:11 AM EDT [facility] CO2, Plasma 22 22 - 29 mmol/L 01/30/2025 11:11 AM EDT [facility] Anion Gap 14 6 - 16 mmol/L 01/30/2025 11:11 AM EDT [facility] Total Calcium, Plasma 9.6 8.9 - 10.2 mg/dL 01/30/2025 11:11 AM EDT [facility] Phosphorus, Plasma 4.8(H) 2.5 - 4.5 mg/dL 01/30/2025 11:11 AM EDT [facility] Albumin, Plasma 3.6 3.5 - 5.2 g/dL 01/30/2025 11:11 AM EDT [facility] eGFRcr 110.4 mL/min/1.7 3m*2 01/30/2025 11:11 AM EDT [facility] Comment:Reported eGFRcr in m L/min/1.73m2 is based the CKD-EPI 2020 equation that does not use a race coefficient. Blood Venous blood specimen / Unknown Venipuncture / Unknown 01/30/2025 10:22 AM EDT 01/30/2025 10:36 AM EDT us Jeffery Devine DO LAB BLOOD ORDERABLES Final Re sult [facility] [address] [place] [address] * CBC W/O Differential (01/30/2025 10:22 AM EDT) WBC Count 8.32 3.70 - 10.30 10*3/uL LAB HEMATOLOGY METHOD 01/30/2025 10:55 AM EDT [facility] RBC Count 4.26 3.90 - 5.20 10*6/uL LAB HEMATOLOGY METHOD 01/30/2025 10:55 AM EDT [facility] HGB 12.3 11.2 - 15.7 g/dL LAB HEMATOLOGY METHOD 01/30/2025 10:55 AM EDT [facility] HCT 36.9 34.0 - 45.0 % LAB HEMATOLOGY METHOD 01/30/2025 10:55 AM EDT [facility] Platelet Count 318 155 - 369 10*3/uL LAB HEMATOLOGY METHOD 01/30/2025 10:55 AM EDT [facility] MCV 87 79 - 98 fL LAB HEMATOLOGY METHOD 01/30/2025 10:55 AM EDT [facility] MCH 28.9 26.0 - 32.0 pg LAB HEMATOLOGY METHOD 01/30/2025 10:55 AM EDT [facility] MCHC 33.3 30.7 - 35.5 g/dL LAB HEMATOLOGY METHOD 01/30/2025 10:55 AM EDT [facility] RDW 14.3 11.5 - 14.5 % LAB HEMATOLOGY METHOD 01/30/2025 10:55 AM EDT [facility] MPV 10.7 8.8 - 12.5 fL LAB HEMATOLOGY METHOD 01/30/2025 10:55 AM EDT [facility] nRBC 0.0 <=0.0 per 100 WBCs LAB HEMATOLOGY METHOD 01/30/2025 10:55 AM EDT [facility] Blood Venous blood specimen / Unknown Venipuncture / Unknown 01/30/2025 10:22 AM EDT 01/30/2025 10:43 AM EDT us Jeffery Devine DO LAB BLOOD ORDERABLES Final Re sult [facility] [address] [place] [address] * FL Barium Swallow (01/30/2025 10:03 AM [...] extraluminal contrast or anastomotic leak. Other: On collar turner imaging, unchanged positioning of the surgical clips [...] of extraluminal contrast oranastomotic leak. Other: On collar turner imaging, unchanged positioning of the surgical clipsoverlying [...] 01/29/2025 6:07 PM EDT [facility] Author ID Lian Rene 025 6:07 PM EDT [facility] Device ID [id number] 01/29/2025 6:07 PM EDT [facility] Specimen Type POC Capillary 01/29/2025 6:07 PM EDT [facility] Blood Capillary blood specimen / Unknown 01/29/2025 6:05 PM EDT 01/29/2025 6:07 PM EDT us Jeffery Devine DO LAB POINT OF CARE TE ST DOCKED DEVICE UNSOLICITED RESULTS Final Result Performing Organization Address [facility] de Phone Number [facility] [address] [place] [address] * (ABNORMAL) POCT glucose meter (01/29/2025 11:17 [...] Comment 01/29/2025 11:18 AM EDT [facility]ALTH[facility]ARE [facility] Children'S Author ID Lian Rene 025 11:18 AM EDT HEALTHCARE LAB Device ID [id number] 01/29/2025 11:18 AM EDT [facility] Specimen Type POC Capillary 01/29/2025 11:18 AM EDT [facility] Blood Capillary blood specimen / Unknown 01/29/2025 11:17 AM EDT 01/29/2025 11:18 AM EDT us Jeffery Devine DO LAB POINT OF CARE TE ST DOCKED DEVICE UNSOLICITED RESULTS Final Result Performing Organization Address [facility] de Phone Number [facility] [address] [place] [address] * XR Chest 1 View (01/29/2025 6:08 [...] 01/29/2025 5:56 AM EDT [facility] Author ID Clementina Schuster 01/29/2025 5:56 AM EDT [facility] Device ID [id number] 01/29/2025 5:56 AM EDT HEALTHCARE LAB Specimen Type POC Capillary 01/29/2025 5:56 AM EDT [facility] Blood Capillary blood specimen / Unknown 01/29/2025 5:48 AM EDT 01/29/2025 5:56 AM EDT us Jeffery Devine DO LAB POINT OF CARE TE ST DOCKED DEVICE UNSOLICITED RESULTS Final Result Performing Organization Address City/[facility]/ZIP Co de Phone Number HEALTHCARE LAB [address] [place] [address] * Magnesium, Plasma (01/29/2025 1:38 AM EDT) Magnesium, Plasma 2.2 1.9 - 2.4 mg/dL 01/29/2025 2:14 AM EDT [facility] Blood Venous blood specimen / Unknown Venipuncture / Unknown 01/29/2025 1:38 AM EDT 01/29/2025 1:47 AM EDT us Jeffery Devine DO LAB BLOOD ORDERABLES Final Re sult [facility] [address] [place] [address] * (ABNORMAL) Renal Function Panel, Plasma (01/29/2025 1:38 AM EDT) Glucose, Plasma 120(H) 74 - 99 mg/dL 01/29/2025 2:14 AM EDT [facility] BUN, Plasma 5(L) 7 - 21 mg/dL 01/29/2025 2:14 AM EDT [facility] Creatinine, Plasma 0.53(L) 0.60 - 1.10 mg/dL 01/29/2025 2:14 AM EDT [facility] BUN/Creatinine Ratio 9 01/29/2025 2:14 AM EDT [facility] Sodium, Plasma 138 136 - 145 mmol/L 01/29/2025 2:14 AM EDT [facility] Potassium, Plasma 4.3 3.6 - 4.9 mmol/L 01/29/2025 2:14 AM EDT [facility] Chloride, Plasma 111(H) 97 - 107 mmol/L 01/29/2025 2:14 AM EDT [facility] CO2, Plasma 20(L) 22 - 29 mmol/L 01/29/2025 2:14 AM EDT [facility] Anion Gap 7 6 - 16 mmol/L 01/29/2025 2:14 AM EDT [facility] Total Calcium, Plasma 7.9(L) 8.9 - 10.2 mg/dL 01/29/2025 2:14 AM EDT [facility] Phosphorus, Plasma 3.1 2.5 - 4.5 mg/dL 01/29/2025 2:14 AM EDT [facility] Albumin, Plasma 3.1(L) 3.5 - 5.2 g/dL 01/29/2025 2:14 AM EDT [facility] eGFRcr 111.4 mL/min/1.7 3m*2 01/29/2025 2:14 AM EDT [facility] Comment:Reported eGFRcr in m L/min/1.73m2 is based the CKD-EPI 2020 equation that does not use a race coefficient. Blood Venous blood specimen / Unknown Venipuncture / Unknown 01/29/2025 1:38 AM EDT 01/29/2025 1:47 AM EDT Jeffery Devine DO LAB BLOOD ORDERABLES Final Re sult [facility] [address] [place] [address] * (ABNORMAL) CBC W/O Differential (01/29/2025 1:38 AM EDT) WBC Count 12.38(H) 3.70 - 10.30 10*3/uL LAB HEMATOLOGY METHOD 01/29/2025 1:54 AM EDT [facility] RBC Count 3.49(L) 3.90 - 5.20 10*6/uL LAB HEMATOLOGY METHOD 01/29/2025 1:54 AM EDT [facility] HGB 10.4(L) 11.2 - 15.7 g/dL LAB HEMATOLOGY METHOD 01/29/2025 1:54 AM EDT [facility] HCT 30.6(L) 34.0 - 45.0 % LAB HEMATOLOGY METHOD 01/29/2025 1:54 AM EDT [facility] Platelet Count 241 155 - 369 10*3/uL LAB HEMATOLOGY METHOD 01/29/2025 1:54 AM EDT [facility] MCV 88 79 - 98 fL LAB HEMATOLOGY METHOD 01/29/2025 1:54 AM EDT [facility] MCH 29.8 26.0 - 32.0 pg LAB HEMATOLOGY METHOD 01/29/2025 1:54 AM EDT [facility] MCHC 34.0 30.7 - 35.5 g/dL LAB HEMATOLOGY METHOD 01/29/2025 1:54 AM EDT [facility] RDW 14.2 11.5 - 14.5 % LAB HEMATOLOGY METHOD 01/29/2025 1:54 AM EDT [facility] MPV 10.4 8.8 - 12.5 fL LAB HEMATOLOGY METHOD 01/29/2025 1:54 AM EDT [facility] nRBC 0.0 <=0.0 per 100 WBCs LAB HEMATOLOGY METHOD 01/29/2025 1:54 AM EDT [facility] Blood Venous blood specimen / Unknown Venipuncture / Unknown 01/29/2025 1:38 AM EDT 01/29/2025 1:47 AM EDT us Jeffery Devine DO LAB BLOOD ORDERABLES Final Re sult [facility] [address] [place] [address] * (ABNORMAL) POCT glucose meter (01/28/2025 11:18 PM EDT) [facility] POCT Glucose 104(H) 74 - 99 mg/dL 01/28/2025 11:22 PM EDT [facility] Comment:Accuracy of a glucos e result [...] 01/28/2025 11:22 PM EDT [facility] Author ID Sudheer Neely 025 11:22 PM EDT [facility] Device ID [id number] 01/28/2025 11:22 PM EDT [facility] Specimen Type POC Capillary 01/28/2025 11:22 PM EDT [facility] Blood Capillary blood specimen / Unknown 01/28/2025 11:18 PM EDT 01/28/2025 11:22 PM EDT us Jeffery Devine DO LAB POINT OF CARE TE ST DOCKED DEVICE UNSOLICITED RESULTS Final Result Performing Organization Address [facility] Co de Phone Number [facility]ALTHCARE [facility] [address] [place] [address] * (ABNORMAL) POCT glucose meter (01/28/2025 6:13 PM EDT) [facility] POCT Glucose 120(H) 74 - 99 mg/dL [...] Comment 01/28/2025 6:15 PM EDT [facility] Children[facility]S Author ID Sophia Dickey 6:15 PM EDT [facility]ALTH[facility]ARE LAB Device ID [id number] 01/28/2025 6:15 PM EDT [facility]ARE LAB Specimen Type POC Capillary 01/28/2025 6:15 PM EDT [facility] Blood Capillary blood specimen / Unknown 01/28/2025 6:13 PM EDT 01/28/2025 6:15 PM EDT us Jeffery Devine DO LAB POINT OF CARE TE ST DOCKED DEVICE UNSOLICITED RESULTS Final Result Performing Organization Address City/[facility] Co de Phone Number [facility]ARE [facility] [address] [place] [address] * PERIPHERAL IV (SMARTFORM LINK) (01/28/2025 3:56 [...] POCT glucose meter (01/28/2025 11:17 AM EDT) [facility] POCT Glucose 131(H) 74 - 99 mg/dL [...] 01/28/2025 11:28 AM EDT [facility] Author ID Sophia Dickey 11:28 AM EDT [facility]ALTH[facility]ARE [facility] Device ID [id number] 01/28/2025 11:28 AM EDT [facility]ALTH[facility]ARE LAB Specimen Type POC Capillary 01/28/2025 11:28 AM EDT [facility] Blood Capillary blood specimen / Unknown 01/28/2025 11:17 AM EDT 01/28/2025 11:28 AM EDT us Jeffery Devine DO LAB POINT OF CARE TE ST DOCKED DEVICE UNSOLICITED RESULTS Final Result Performing Organization Address [facility] Co de Phone Number [facility]ARE [facility] [address] [place] [address] * (ABNORMAL) POCT glucose meter (01/28/2025 8:31 AM EDT) [facility] POCT Glucose 101(H) 74 - 99 mg/dL [...] Comment 01/28/2025 8:33 AM EDT [facility]S Author ID Sophia Dickey 8:33 AM EDT HEALTH[facility]ARE LAB Device ID [id number] 01/28/2025 8:33 AM EDT [facility]ALTH[facility]ARE LAB Specimen Type POC Capillary 01/28/2025 8:33 AM EDT [facility] Blood Capillary blood specimen / Unknown 01/28/2025 8:31 AM EDT 01/28/2025 8:33 AM EDT us Jeffery Devine DO LAB POINT OF CARE TE ST DOCKED DEVICE UNSOLICITED RESULTS Final Result Performing Organization Address [facility] de Phone Number HEALTHCARE LAB [address] [place] [address] * (ABNORMAL) Magnesium, Plasma (01/28/2025 6:08 AM EDT) [facility] Magnesium, Plasma 1.7(L) 1.9 - 2.4 mg/dL 01/28/2025 7:01 AM EDT [facility] Blood Venous blood specimen / Unknown Venipuncture / Unknown 01/28/2025 6:08 AM EDT 01/28/2025 6:32 AM EDT us Jeffery Devine DO LAB BLOOD ORDERABLES Final Re sult Performing Organization Address City/[facility]/ZIP Co de Phone Number [facility] [address] [place] [address] * (ABNORMAL) Renal Function Panel, Plasma (01/28/2025 6:08 AM EDT) Glucose, Plasma 454(H) 74 - 99 mg/dL 01/28/2025 7:01 AM EDT [facility] BUN, Plasma 5(L) 7 - 21 mg/dL 01/28/2025 7:01 AM EDT [facility] Creatinine, Plasma 0.53(L) 0.60 - 1.10 mg/dL 01/28/2025 7:01 AM EDT [facility] BUN/Creatinine Ratio 9 01/28/2025 7:01 AM EDT [facility] Sodium, Plasma 137 136 - 145 mmol/L 01/28/2025 7:01 AM EDT [facility] Potassium, Plasma 3.2(L) 3.6 - 4.9 mmol/L 01/28/2025 7:01 AM EDT [facility] Chloride, Plasma 106 97 - 107 mmol/L 01/28/2025 7:01 AM EDT [facility] CO2, Plasma 19(L) 22 - 29 mmol/L 01/28/2025 7:01 AM EDT [facility] Anion Gap 12 6 - 16 mmol/L 01/28/2025 7:01 AM EDT [facility] Total Calcium, Plasma 7.8(L) 8.9 - 10.2 mg/dL 01/28/2025 7:01 AM T [facility] Phosphorus, Plasma 2.3(L) 2.5 - 4.5 mg/dL 01/28/2025 7:01 AM EDT [facility] Albumin, Plasma 3.0(L) 3.5 - 5.2 g/dL 01/28/2025 7:01 AM EDT [facility] eGFRcr 111.4 mL/min/1.7 3m*2 01/28/2025 7:01 AM T [facility] Comment:Reported eGFRcr in m L/min/1.73m2 is based the CKD-EPI 2020 equation that does not use a race coefficient. Blood Venous blood specimen / Unknown Venipuncture / Unknown 01/28/2025 6:08 AM EDT 01/28/2025 6:32 AM EDT Jeffery Devine DO LAB BLOOD ORDERABLES Final Re sult [facility] [address] [place] [address] * (ABNORMAL) CBC W/O Differential (01/28/2025 6:08 AM EDT) WBC Count 9.14 3.70 - 10.30 10*3/uL LAB HEMATOLOGY METHOD 01/28/2025 6:44 AM EDT [facility] RBC Count 3.52(L) 3.90 - 5.20 10*6/uL LAB HEMATOLOGY METHOD 01/28/2025 6:44 AM EDT [facility] HGB 10.4(L) 11.2 - 15.7 g/dL LAB HEMATOLOGY METHOD 01/28/2025 6:44 AM EDT [facility] HCT 31.2(L) 34.0 - 45.0 % LAB HEMATOLOGY METHOD 01/28/2025 6:44 AM EDT [facility] Platelet Count 213 155 - 369 10*3/uL LAB HEMATOLOGY METHOD 01/28/2025 6:44 AM EDT [facility] MCV 89 79 - 98 fL LAB HEMATOLOGY METHOD 01/28/2025 6:44 AM EDT [facility] MCH 29.5 26.0 - 32.0 pg LAB HEMATOLOGY METHOD 01/28/2025 6:44 AM EDT [facility] MCHC 33.3 30.7 - 35.5 g/dL LAB HEMATOLOGY METHOD 01/28/2025 6:44 AM EDT [facility] RDW 14.0 11.5 - 14.5 % LAB HEMATOLOGY METHOD 01/28/2025 6:44 AM EDT [facility] MPV 10.8 8.8 - 12.5 fL LAB HEMATOLOGY METHOD 01/28/2025 6:44 AM EDT [facility] nRBC 0.0 <=0.0 per 100 WBCs LAB HEMATOLOGY METHOD 01/28/2025 6:44 AM EDT [facility] Blood Venous blood specimen / Unknown Venipuncture / Unknown 01/28/2025 6:08 AM EDT 01/28/2025 6:32 AM EDT us Jeffery Devine DO LAB BLOOD ORDERABLES Final Re sult Performing Organization Address [facility] Co de Phone Number [facility] [address] [place] [address] * (ABNORMAL) POCT glucose meter (01/28/2025 5:31 AM EDT) [facility] Signature POCT Glucose 104(H) 74 - 99 [...] Comment 01/28/2025 5:32 AM EDT [facility] Children'S Author ID [email or web address] [email or web address] 01/28/2025 5:32 AM EDT [facility] Device ID [id number] 01/28/2025 5:32 AM EDT [facility] Specimen Type POC Capillary 01/28/2025 5:32 AM EDT [facility] Blood Capillary blood specimen / Unknown 01/28/2025 5:31 AM EDT 01/28/2025 5:32 AM EDT us Jeffery Devine DO LAB POINT OF CARE TE ST DOCKED DEVICE UNSOLICITED RESULTS Final Result Performing Organization Address City/[facility] Co de Phone Number HEALTH[facility]ARE [facility] [address] [place] [address] * XR Chest 1 View (01/28/2025 4:42 [...] Detected Not Detected 01/28/2025 12:12 AM EDT [facility] Stool Rectum structure / Unknown Non-blood Collection / Unknown 01/27/2025 10:40 PM EDT 01/27/2025 11:04 PM EDT Narrative [facility] - 01/28/2025 12:12 AM [...] MICROBIOLOGY - GENERAL OR DERABLES Final Result [facility] [address] [place] [address] * (ABNORMAL) POCT glucose meter (01/27/2025 6:57 [...] 01/27/2025 7:04 PM EDT [facility] Children'S Author ID Flori Bullard 01/27/2025 7:04 PM EDT [facility] Device ID [id number] 01/27/2025 7:04 PM EDT [facility] Specimen Type POC Capillary 01/27/2025 7:04 PM EDT [facility] Blood Capillary blood specimen / Unknown 01/27/2025 6:57 PM EDT 01/27/2025 7:04 PM EDT Jeffery Devine DO LAB POINT OF CARE TE ST DOCKED DEVICE UNSOLICITED RESULTS Final Result Performing Organization Address City/State/[facility] Co de Phone Number HEALTH[facility]ARE [facility] [address] [place], [place] [id number] * XR Chest 1 View (01/27/2025 2:17 [...] MD on 01/27/2025 2:26 PM Diamante Weber BOOM PUMP OPERATOR IMG XR PROCEDURES Final Resul t * [...] 01/27/2025 2:21 PM EDT [facility] Children'S Author ID Juan MiguelYvettea 01/27/2025 2:21 PM EDT [facility] Device ID [id number] 01/27/2025 2:21 PM EDT [facility] Specimen Type POC Capillary 01/27/2025 2:21 PM EDT [facility] Blood Capillary blood specimen / Unknown 01/27/2025 1:56 PM EDT 01/27/2025 2:21 PM EDT us Jeffery Devine DO LAB POINT OF CARE TE ST DOCKED DEVICE UNSOLICITED RESULTS Final Result Performing Organization Address [facility] de Phone Number [facility] [address] [place] [address] * POCT glucose meter (01/27/2025 12:45 PM [...] 01/27/2025 1:02 PM EDT [facility] Children'S Author ID Flori Bullard 01/27/2025 1:02 PM EDT HEALTH[facility]ARE LAB Device ID [id number] 01/27/2025 1:02 PM EDT [facility]ALTH[facility]ARE [facility] Specimen Type POC Capillary 01/27/2025 1:02 PM EDT [facility] Blood Capillary blood specimen / Unknown 01/27/2025 12:45 PM EDT 01/27/2025 1:02 PM EDT us Jeffery Devine DO LAB POINT OF CARE TE ST DOCKED DEVICE UNSOLICITED RESULTS Final Result Performing Organization Address City/[facility] de Phone Number [facility]ALTHCARE [facility] [address] [place] [address] * CBC W/O Differential (01/27/2025 4:42 AM EDT) WBC Count 9.91 3.70 - 10.30 10*3/uL LAB HEMATOLOGY METHOD 01/27/2025 5:04 AM EDT [facility] RBC Count 4.09 3.90 - 5.20 10*6/uL LAB HEMATOLOGY METHOD 01/27/2025 5:04 AM EDT [facility] HGB 11.9 11.2 - 15.7 g/dL LAB HEMATOLOGY METHOD 01/27/2025 5:04 AM EDT [facility] HCT 37.1 34.0 - 45.0 % LAB HEMATOLOGY METHOD 01/27/2025 5:04 AM EDT [facility] Platelet Count 213 155 - 369 10*3/uL LAB HEMATOLOGY METHOD 01/27/2025 5:04 AM EDT [facility] MCV 91 79 - 98 fL LAB HEMATOLOGY METHOD 01/27/2025 5:04 AM EDT [facility] Comment:Results inconsistent with previous lab findings. MCH 29.1 26.0 - 32.0 pg LAB HEMATOLOGY METHOD 01/27/2025 5:04 AM EDT [facility] MCHC 32.1 30.7 - 35.5 g/dL LAB HEMATOLOGY METHOD 01/27/2025 5:04 AM EDT [facility] RDW 14.1 11.5 - 14.5 % LAB HEMATOLOGY METHOD 01/27/2025 5:04 AM EDT [facility] MPV 10.6 8.8 - 12.5 fL LAB HEMATOLOGY METHOD 01/27/2025 5:04 AM EDT [facility] nRBC 0.0 <=0.0 per 100 WBCs LAB HEMATOLOGY METHOD 01/27/2025 5:04 AM EDT [facility] Blood Venous blood specimen / Unknown Venipuncture / Unknown 01/27/2025 4:42 AM EDT 01/27/2025 4:50 AM EDT us Jeffery Devine DO LAB BLOOD ORDERABLES Final Re sult [facility] [address] [place] [address] * (ABNORMAL) Magnesium, Plasma (01/27/2025 4:40 AM EDT) Magnesium, Plasma 1.8(L) 1.9 - 2.4 mg/dL 01/27/2025 5:19 AM EDT [facility] Blood Venous blood specimen / Unknown Venipuncture / Unknown 01/27/2025 4:40 AM EDT 01/27/2025 4:50 AM EDT us Jeffery Devine DO LAB BLOOD ORDERABLES Final Re sult [facility] [address] [place] [address] * (ABNORMAL) Renal Function Panel, Plasma (01/27/2025 4:40 AM EDT) Glucose, Plasma 124(H) 74 - 99 mg/dL 01/27/2025 5:19 AM EDT [facility] BUN, Plasma 7 7 - 21 mg/dL 01/27/2025 5:19 AM EDT [facility] Creatinine, Plasma 0.71 0.60 - 1.10 mg/dL 01/27/2025 5:19 AM EDT [facility] BUN/Creatinine Ratio 10 01/27/2025 5:19 AM EDT [facility] Sodium, Plasma 139 136 - 145 mmol/L 01/27/2025 5:19 AM EDT [facility] Potassium, Plasma 3.7 3.6 - 4.9 mmol/L 01/27/2025 5:19 AM EDT [facility] Chloride, Plasma 107 97 - 107 mmol/L 01/27/2025 5:19 AM EDT [facility] CO2, Plasma 23 22 - 29 mmol/L 01/27/2025 5:19 AM EDT [facility] Anion Gap 9 6 - 16 mmol/L 01/27/2025 5:19 AM EDT [facility] Total Calcium, Plasma 8.4(L) 8.9 - 10.2 mg/dL 01/27/2025 5:19 AM EDT [facility] Phosphorus, Plasma 3.1 2.5 - 4.5 mg/dL 01/27/2025 5:19 AM EDT [facility] Albumin, Plasma 3.4(L) 3.5 - 5.2 g/dL 01/27/2025 5:19 AM EDT [facility] eGFRcr 102.5 mL/min/1.7 3m*2 01/27/2025 5:19 AM EDT [facility] Comment:Reported eGFRcr in m L/min/1.73m2 is based the CKD-EPI 2020 equation that does not use a race coefficient. Blood Venous blood specimen / Unknown Venipuncture / Unknown 01/27/2025 4:40 AM EDT 01/27/2025 4:50 AM EDT us Jeffery Devine DO LAB BLOOD ORDERABLES Final Re sult [facility] [address] [place] [address] * (ABNORMAL) CBC W/O Differential (01/27/2025 3:28 AM EDT) WBC Count 5.41 3.70 - 10.30 10*3/uL LAB HEMATOLOGY METHOD 01/27/2025 4:01 AM EDT [facility] RBC Count 1.98(L) 3.90 - 5.20 10*6/uL LAB HEMATOLOGY METHOD 01/27/2025 4:01 AM EDT [facility] HGB 5.8(LL) 11.2 - 15.7 g/dL LAB HEMATOLOGY METHOD 01/27/2025 4:01 AM EDT [facility] HCT 21.0(L) 34.0 - 45.0 % LAB HEMATOLOGY METHOD 01/27/2025 4:01 AM EDT [facility] Platelet Count 119(L) 155 - 369 10*3/uL LAB HEMATOLOGY METHOD 01/27/2025 4:01 AM EDT [facility] MCV 106(H) 79 - 98 fL LAB HEMATOLOGY METHOD 01/27/2025 4:01 AM EDT [facility] Comment:Results inconsistent with previous lab findings. MCH 29.3 26.0 - 32.0 pg LAB HEMATOLOGY METHOD 01/27/2025 4:01 AM EDT [facility] MCHC 27.6(L) 30.7 - 35.5 g/dL LAB HEMATOLOGY METHOD 01/27/2025 4:01 AM EDT [facility] RDW 14.9(H) 11.5 - 14.5 % LAB HEMATOLOGY METHOD 01/27/2025 4:01 AM EDT [facility] MPV 10.9 8.8 - 12.5 fL LAB HEMATOLOGY METHOD 01/27/2025 4:01 AM EDT [facility] nRBC 0.0 <=0.0 per 100 WBCs LAB HEMATOLOGY METHOD 01/27/2025 4:01 AM EDT [facility] Blood Venous blood specimen / Unknown Venipuncture / Unknown 01/27/2025 3:28 AM EDT 01/27/2025 3:46 AM EDT us Jeffery Devine DO LAB BLOOD ORDERABLES Final Re sult [facility] [address] [place] [address] * XR Chest 1 View (01/27/2025 3:00 [...] - 99 mg/dL 01/27/2025 1:24 AM EDT [facility] Comment:Accuracy of a glucos e result [...] for testing. Comment 01/27/2025 1:24 AM EDT [facility] Children'S Author ID Lindsey Baer 01/27/2025 1:24 AM EDT [facility] Device ID [id number] 01/27/2025 1:24 AM EDT [facility] Specimen Type POC Capillary 01/27/2025 1:24 AM EDT [facility] Blood Capillary blood specimen / Unknown 01/27/2025 1:21 AM EDT 01/27/2025 1:24 AM EDT us Jeffery Devine DO LAB POINT OF CARE TE ST DOCKED DEVICE UNSOLICITED RESULTS Final Result Performing Organization Address City/State/[facility] Co de Phone Number [facility] [address] [place], [place] [phone] * POCT glucose meter (01/26/2025 7:23 PM [...] 01/26/2025 7:25 PM EDT [facility] Children'S Author ID Cecilia Castillo 01/27/20 7:25 PM EDT [facility] Device ID [id number] 01/26/2025 7:25 PM EDT [facility] Specimen Type POC Capillary 01/26/2025 7:25 PM EDT [facility] Blood Capillary blood specimen / Unknown 01/26/2025 7:23 PM EDT 01/26/2025 7:25 PM EDT us Jeffery Devine DO LAB POINT OF CARE TE ST DOCKED DEVICE UNSOLICITED RESULTS Final Result Performing Organization Address City/[facility]/ZIP Co de Phone Number [facility] [address] [place] [address] * POCT glucose meter (01/26/2025 6:25 AM EDT) [facility] POCT Glucose 97 74 - 99 mg/dL [...] 01/26/2025 7:37 AM EDT [facility] Children'S Author ID Gracie Edmond 01/26/2025 7:37 AM EDT [facility] Device ID [id number] 01/26/2025 7:37 AM EDT [facility] Specimen Type POC Arterial 01/26/2025 7:37 AM EDT [facility] Blood Arterial blood specimen / Unknown 01/26/2025 6:25 AM EDT 01/26/2025 7:37 AM EDT us Jeffery Devine DO LAB POINT OF CARE TE ST DOCKED DEVICE UNSOLICITED RESULTS Final Result Performing Organization Address City/[facility]/ZIP Co de Phone Number [facility] [address] [place] [address] * XR Chest 1 View (01/26/2025 2:36 [...] - 2.4 mg/dL 01/26/2025 12:42 AM EDT [facility] Blood Venous blood specimen / Unknown Venipuncture / Unknown 01/26/2025 12:02 AM EDT 01/26/2025 12:06 AM EDT us Jeffery Devine DO LAB BLOOD ORDERABLES Final Re sult [facility] [address] [place] [address] * (ABNORMAL) Renal Function Panel, Plasma (01/26/2025 12:02 AM EDT) Glucose, Plasma 127(H) 74 - 99 mg/dL 01/26/2025 12:42 AM EDT [facility] BUN, Plasma 11 7 - 21 mg/dL 01/26/2025 12:42 AM EDT [facility] Creatinine, Plasma 0.52(L) 0.60 - 1.10 mg/dL 01/26/2025 12:42 AM EDT [facility] BUN/Creatinine Ratio 21 01/26/2025 12:42 AM EDT [facility] Sodium, Plasma 140 136 - 145 mmol/L 01/26/2025 12:42 AM EDT [facility] Potassium, Plasma 4.8 3.6 - 4.9 mmol/L 01/26/2025 12:42 AM EDT [facility] Chloride, Plasma 107 97 - 107 mmol/L 01/26/2025 12:42 AM EDT [facility] CO2, Plasma 22 22 - 29 mmol/L 01/26/2025 12:42 AM EDT [facility] Anion Gap 11 6 - 16 mmol/L 01/26/2025 12:42 AM EDT [facility] Total Calcium, Plasma 8.7(L) 8.9 - 10.2 mg/dL 01/26/2025 12:42 AM EDT [facility] Phosphorus, Plasma 3.5 2.5 - 4.5 mg/dL 01/26/2025 12:42 AM EDT [facility] Albumin, Plasma 3.7 3.5 - 5.2 g/dL 01/26/2025 12:42 AM EDT [facility] eGFRcr 111.9 mL/min/1.7 3m*2 01/26/2025 12:42 AM EDT [facility] Comment:Reported eGFRcr in m L/min/1.73m2 is based the CKD-EPI 2020 equation that does not use a race coefficient. Blood Venous blood specimen / Unknown Venipuncture / Unknown 01/26/2025 12:02 AM EDT 01/26/2025 12:06 AM EDT Jeffery Devine DO LAB BLOOD ORDERABLES Final Re sult [facility] [address] [place] [address] * (ABNORMAL) CBC W/O Differential (01/26/2025 12:02 AM EDT) WBC Count 11.49(H) 3.70 - 10.30 10*3/uL LAB HEMATOLOGY METHOD 01/26/2025 12:23 AM EDT [facility] RBC Count 4.03 3.90 - 5.20 10*6/uL LAB HEMATOLOGY METHOD 01/26/2025 12:23 AM EDT [facility] HGB 11.7 11.2 - 15.7 g/dL LAB HEMATOLOGY METHOD 01/26/2025 12:23 AM EDT [facility] HCT 35.3 34.0 - 45.0 % LAB HEMATOLOGY METHOD 01/26/2025 12:23 AM EDT [facility] Platelet Count 260 155 - 369 10*3/uL LAB HEMATOLOGY METHOD 01/26/2025 12:23 AM EDT [facility] MCV 88 79 - 98 fL LAB HEMATOLOGY METHOD 01/26/2025 12:23 AM EDT [facility] MCH 29.0 26.0 - 32.0 pg LAB HEMATOLOGY METHOD 01/26/2025 12:23 AM EDT [facility] MCHC 33.1 30.7 - 35.5 g/dL LAB HEMATOLOGY METHOD 01/26/2025 12:23 AM EDT [facility] RDW 13.4 11.5 - 14.5 % LAB HEMATOLOGY METHOD 01/26/2025 12:23 AM EDT [facility] MPV 10.7 8.8 - 12.5 fL LAB HEMATOLOGY METHOD 01/26/2025 12:23 AM EDT [facility] nRBC 0.0 <=0.0 per 100 WBCs LAB HEMATOLOGY METHOD 01/26/2025 12:23 AM EDT [facility] Blood Venous blood specimen / Unknown Venipuncture / Unknown 01/26/2025 12:02 AM EDT 01/26/2025 12:06 AM EDT Jeffery Devine DO LAB BLOOD ORDERABLES Final Re sult [facility] [address] [place] [address] * XR Chest 1 View (01/25/2025 3:17 [...] Detected Not Detected 01/26/2025 10:17 AM EDT [facility] Swab (Axilla and Groin) Non-blood Collection / Unknown 01/25/2025 3:02 PM EDT 01/25/2025 3:42 PM EDT Narrative [facility] - 01/26/2025 10:17 AM EDT This PCR assay was developed and its performance characteristics determined by [facility] as appropriate for clinical purposes. This assay has not been cleared or approved by the FDA, but is performed in a CLIA regulated laboratory that is qualified to perform high-complexity testing. us Jeffery Devine DO LAB MICROBIOLOGY - GENERAL OR DERABLES Final Result Performing Organization Address City/[facility]/ZIP Co de Phone Number [facility] [address] [place] [address] * Multi Drug Resistance Test (01/25/2025 3:02 PM EDT) Pathologist [facility] Culture No growth at day 1 01/26/2025 1:57 PM EDT [facility] Swab (Nares and Alexandra Rectal) Non-blood Collection / Unknown 01/25/2025 3:02 PM EDT 01/25/2025 3:42 PM EDT us Jeffery Devine DO LAB MICROBIOLOGY - GENERAL OR DERABLES Final Result Performing Organization Address City/[facility]/ZIP Co de Phone Number [facility] [address] [place] [address] * (ABNORMAL) CBC W/O Differential (01/25/2025 2:59 PM EDT) Pathologist [facility] WBC Count 14.72(H) 3.70 - 10.30 10*3/uL LAB HEMATOLOGY METHOD 01/25/2025 3:33 PM EDT [facility] RBC Count 4.25 3.90 - 5.20 10*6/uL LAB HEMATOLOGY METHOD 01/25/2025 3:33 PM EDT [facility] HGB 12.2 11.2 - 15.7 g/dL LAB HEMATOLOGY METHOD 01/25/2025 3:33 PM EDT [facility] HCT 37.0 34.0 - 45.0 % LAB HEMATOLOGY METHOD 01/25/2025 3:33 PM EDT [facility] Platelet Count 260 155 - 369 10*3/uL LAB HEMATOLOGY METHOD 01/25/2025 3:33 PM EDT [facility] MCV 87 79 - 98 fL LAB HEMATOLOGY METHOD 01/25/2025 3:33 PM EDT [facility] MCH 28.7 26.0 - 32.0 pg LAB HEMATOLOGY METHOD 01/25/2025 3:33 PM EDT [facility] MCHC 33.0 30.7 - 35.5 g/dL LAB HEMATOLOGY METHOD 01/25/2025 3:33 PM EDT [facility] RDW 13.4 11.5 - 14.5 % LAB HEMATOLOGY METHOD 01/25/2025 3:33 PM EDT [facility] MPV 10.5 8.8 - 12.5 fL LAB HEMATOLOGY METHOD 01/25/2025 3:33 PM EDT [facility] nRBC 0.0 <=0.0 per 100 WBCs LAB HEMATOLOGY METHOD 01/25/2025 3:33 PM EDT [facility] Blood Venous blood specimen / Unknown Venipuncture / Unknown 01/25/2025 2:59 PM EDT 01/25/2025 3:24 PM EDT us Diamante Weber BOOM PUMP OPERATOR LAB BLOOD ORDERABLES Final Re sult [facility] [address] [place] [address] * (ABNORMAL) Blood gas panel, arterial (01/25/2025 2:59 PM EDT) pH, Arterial 7.34(L) 7.35 - 7.45 LAB HEMATOLOGY METHOD 01/25/2025 3:16 PM EDT [facility] pCO2, Arterial 44 35 - 48 mmHg LAB HEMATOLOGY METHOD 01/25/2025 3:16 PM EDT [facility] pO2, Arterial 75(L) 83 - 108 mmHg LAB HEMATOLOGY METHOD 01/25/2025 3:16 PM EDT [facility] SO2, Measured, Arterial 95 94 - 98 % LAB HEMATOLOGY METHOD 01/25/2025 3:16 PM EDT [facility] Base Excess, Arterial -2.1(L) -2.0 - 3.0 mmol/L LAB HEMATOLOGY METHOD 01/25/2025 3:16 PM EDT [facility] Bicarbonate, Calculated, Arterial 24 22 - 26 mmol/L LAB HEMATOLOGY METHOD 01/25/2025 3:16 PM EDT [facility] Hematocrit, Whole Blood 37.3 34.0 - 45.0 % LAB HEMATOLOGY METHOD 01/25/2025 3:16 PM EDT [facility] Sodium, Whole Blood 141 136 - 145 mmol/L LAB HEMATOLOGY METHOD 01/25/2025 3:16 PM EDT [facility] Potassium, Whole Blood 3.7 3.6 - 4.9 mmol/L LAB HEMATOLOGY METHOD 01/25/2025 3:16 PM EDT [facility] Chloride, Whole Blood 108(H) 97 - 107 mmol/L LAB HEMATOLOGY METHOD 01/25/2025 3:16 PM EDT [facility] Glucose, Whole Blood 152(H) 74 - 99 mg/dL LAB HEMATOLOGY METHOD 01/25/2025 3:16 PM EDT [facility] Ionized Calcium, Whole Blood 4.6 4.6 - 5.1 mg/dL LAB HEMATOLOGY METHOD 01/25/2025 3:16 PM EDT [facility] Lactate, Arterial, Whole Blood 2.6(H) 0.5 - 1.6 mmol/L LAB HEMATOLOGY METHOD 01/25/2025 3:16 PM EDT [facility] Blood Arterial blood specimen / Unknown Arterial Puncture / Unknown 01/25/2025 2:59 PM EDT 01/25/2025 3:13 PM EDT us Diamante Weber BOOM PUMP OPERATOR LAB BLOOD ORDERABLES Final Re sult [facility] [address] [place] [address] * Magnesium, Plasma (01/25/2025 2:59 PM EDT) Magnesium, Plasma 1.9 1.9 - 2.4 mg/dL 01/25/2025 4:03 PM EDT [facility] Blood Venous blood specimen / Unknown Venipuncture / Unknown 01/25/2025 2:59 PM EDT 01/25/2025 3:22 PM EDT us Diamante Weber [employer] LAB BLOOD ORDERABLES Final Re sult [facility] [address] [place] [address] * (ABNORMAL) Renal Function Panel, Plasma (01/25/2025 2:59 PM EDT) Glucose, Plasma 156(H) 74 - 99 mg/dL 01/25/2025 4:03 PM EDT [facility] BUN, Plasma 15 7 - 21 mg/dL 01/25/2025 4:03 PM EDT [facility] Creatinine, Plasma 0.63 0.60 - 1.10 mg/dL 01/25/2025 4:03 PM EDT [facility] BUN/Creatinine Ratio 24 01/25/2025 4:03 PM EDT [facility] Sodium, Plasma 139 136 - 145 mmol/L 01/25/2025 4:03 PM EDT [facility] Potassium, Plasma 3.8 3.6 - 4.9 mmol/L 01/25/2025 4:03 PM EDT [facility] Chloride, Plasma 104 97 - 107 mmol/L 01/25/2025 4:03 PM EDT [facility] CO2, Plasma 21(L) 22 - 29 mmol/L 01/25/2025 4:03 PM EDT [facility] Anion Gap 14 6 - 16 mmol/L 01/25/2025 4:03 PM EDT [facility] Total Calcium, Plasma 8.7(L) 8.9 - 10.2 mg/dL 01/25/2025 4:03 PM EDT [facility] Phosphorus, Plasma 3.7 2.5 - 4.5 mg/dL 01/25/2025 4:03 PM EDT [facility] Albumin, Plasma 3.8 3.5 - 5.2 g/dL 01/25/2025 4:03 PM EDT [facility] eGFRcr 106.9 mL/min/1.7 3m*2 01/25/2025 4:03 PM EDT [facility] Comment:Reported eGFRcr in m L/min/1.73m2 is based the CKD-EPI 2020 equation that does not use a race coefficient. Blood Venous blood specimen / Unknown Venipuncture / Unknown 01/25/2025 2:59 PM EDT 01/25/2025 3:22 PM EDT us Diamante Weber [employer] LAB BLOOD ORDERABLES Final Re sult [facility] [address] [place] [address] * Surgical Pathology Exam (01/25/2025 12:18 PM EDT) Case Report Surgical Pathology Case: [id number] Authorizing Provider: Jeffery Devine DO Collected: 01/25/2025 1218 Ordering Location: [facility] Received: 01/25/2025 1326 Pathologist: Harshil Banks MD Specimens: A) - Esophagus, portion of esophagus fresh for permanent B) - Esophagus, esophagogastric anastomosis fresh for permanent C) - Esophagus, esophagogastrectom y fresh for permanent 5 12:28 PM EDT [facility] Final Diagnosis A. ESOPHAGUS, EXCISION: - PORTION [...] LYMPH NODES (7) 5 12:28 PM EDT [facility] at 1228 EDT Clinical Information [facility] 01/11 12:28 PM EDT [facility] Special and Immunohistochemical Stains Special Stain: [id number] Mike Trichrome Stain IHC: There are no tasks to display for the given criteria. All controls show appropriate reactivity. All immunohistochemist ry, in situ hybridization, and histochemical tests were developed by and are performed at the [facility], [address] [place] [address]. All tests reported here, except those addressing [...] negativity on decalcified specimens. 12:28 PM EDT [facility] Gross Description A. PORTION OF ESOPHAGUS FRESH FOR PERMANENT The specimens received fresh, placed in formalin labeled p ortion of esophagus and consists of a a 3.5 x 0.3 x 0.2 cm teague-pink segment of stapled esophagus with scantly attached esophageal tissue. The chiqui are excised and charter representative sections are submitted in cassette A1. [...] to reveal teague-pink, grossly unremarkable mucosal surface. Typewriter Assembler sections are submitted in cassette B1. Cold [...] grossly identified. Gross photographs have been taken. Typewriter Assembler sections are submitted as follows: C1: Esophageal [...] 56m Angeles Barreto MD 12:28 PM EDT [facility] Note: A resident was involved in the service. I attest I examined the relevant preparations for the specimens and confirmed the diagnosis or interpretation. 12:28 PM EDT [facility] Tissue Esophageal structure / [...] ORDERABLES Prudence l Result Performing Organization Address City/[facility] Co de Phone Number [facility] [address] [place] [address] * Type and screen (01/25/2025 7:45 AM EDT) ABO/Rh A Positive 01/25/2025 6:17 AM EDT BLOOD BANK Antibody Screen Negative 01/25/2025 6:17 AM EDT BLOOD BANK Specimen Expiration 01/28/2025 23:59 01/25/2025 6:17 AM EDT BLOOD BANK Blood Venous blood specimen / Unknown Venipuncture / Unknown 01/25/2025 7:45 AM EDT 01/25/2025 8:01 AM EDT Vickey Stele MD LAB BLOOD BANK TEST ORDERABL ES Final Result Performing Organization Address [facility] de Phone Number BLOOD BANK [address] documented in this encounter Visit Diagnoses [...] Weiner RN) 0831 (Given - Provider: Marcial Lucai RN) 0845 (Given - Provider: Micheline Linn) [...] René Cai RN) 134 (Given - Provider: René Cai RN)1405 (Given - Provider: Marcial Lucia [...] documented as of this encounter Care Teams Director Microbiology Relationship Specialty Start Date End Date Caridad Oliver APRN [address] [place] [address] PCP - General 02/22/21 documented as of this encounter
--- OUTSIDE RECORDS SUMMARY | 2025-01-25 08:06 | XMS_ITS | Encounter Summary ---
Author Organization Healthcare Address [address] [place] [address] Care Team Providers Care Relish Maker Name Role Phone Caridad Oliver APRN Primary Care Provider [phone] Reason for Visit * Auth/Cert (Routine) Specialty Diagnoses / Procedures Referred By Contac t Referred To Contact Diagnoses Achalasia Achalasia Procedures SD ESOPHAGECTOMY DISTAL 2/3 W/LAPAROSCOPIC MOBLJ MINIMALLY INVASIVE ESOPHAGECTOMY, LAPAROSCOPIC Jeffery Devine, DO [address] [phone] Phone: tel: fax: [facility] [address] [place] [phone] Phone: tel: Referral ID Status Reason Start Date Expiration Date Visits Re quested Visits Authorized [id number] 1 1 Encounter Details Date Type Department Care Team (Late st Contact Info) Description 01/25/2025 8:06 AM EDT Anesthesia Event [facility] [address] [place] [phone] Lesa Mosquera MD [address] [place] [phone] Maged Mendoza MD [address] [place], [place] [id number] Anesthesia Record Procedure Summary Procedure Name Responsible [...] Abdomen; Anterior 01/09/25 0845 by Hood Real, tile grader 01/25/25; 0858; Surgical; Laparoscopic; Flank; Right, Outer [...] Location: Pleural; Size: 28 Fr; Drainage System: [place]/nonsuction water seal drainage; Removal Date: 01/27/25; Removal Reason: Other (Comment) (removed prior to moving to [facility]) 01/25/25 0000 by Hood Real RN [...] any time in the past [address] [facility], were you homeless or living in a care home (including now)? No 01/26/2025 Utilities Answer Date [...] MD - 01/25/2025 10:36 AM EDT Patient: Kavita Rivera 54 yo female pmhx of esophageal [...] portions of the procedure(s) and immediately available [facility] the entire duration. See resident note for details. documented in this encounter Plan of Treatment Upcoming Encounters Date Type Department Care Team (Late st Contact Info) Description 08/31/2025 8:30 AM EST Appointment [facility] [address] [place] [phone] 08/31/2025 9:30 AM EST Office Visit [facility] [address] [facility] [place] [address] Jeffery Devine, DO [address] [facility] [address] [place] [phone] documented as of this encounter Goals Goal [...] ANESTHESIA PLACEHOLDER Routine 01/25/2025 8:13 AM EDT SD AN ELECTIVE ENDOTRACHEAL AIRWAY Routine 01/25/2025 8:13 [...] ORDERABLES Edited Res ult - Final * SD AN ELECTIVE ENDOTRACHEAL AIRWAY, PB ANESTHESIA PLACEHOLDER [...] documented as of this encounter Care Teams Relish Maker Relationship Specialty Start Date End Date Caridad Oliver APRN [address] [place] [address] PCP - General 02/22/21 documented as of this encounter
--- OUTSIDE RECORDS SUMMARY | 2025-01-25 08:15 | XMS_ITS | Encounter Summary ---
Author Organization Healthcare Address [address] [place] [address] Care Team Providers Care [employer] Name Role Phone Caridad Oliver APRN Primary Care Provider [phone] Reason for Visit * Auth/Cert (Routine) Specialty Diagnoses / Procedures Referred By Contac t Referred To Contact Diagnoses Achalasia Achalasia Procedures SC ESOPHAGECTOMY DISTAL 2/3 W/LAPAROSCOPIC MOBLJ MINIMALLY INVASIVE ESOPHAGECTOMY, LAPAROSCOPIC Jeffery Devine, DO [address] [address] Phone: tel: fax: [facility] [address] [place] [address] Phone: tel: Referral ID Status Reason Start Date Expiration Date Visits Re quested Visits Authorized [id number] 1 1 Encounter Details Date Type Department Care Team (Late st Contact Info) Description 01/25/2025 8:15 AM EDT - 01/25/2025 3:00 PM EDT Surgery [facility] [address] [place] [id number] Jeffery Devine, DO [address] [address] MINIMALLY INVASIVE ESOPHAGECTOMY, LAPAROSCOPIC [80912 (CPT )] Surgery Details Date/Time Status Location [...] any time in the past 12 m [facility], were you homeless or living in a detention (including now)? No 01/26/2025 Utilities Answer Date [...] Clinic discharge # - For urgent questions/concerns: [facility] hotline: , option 4 - ask for the thoracic surgeon safety consultant. documented in this encounter Medications at Time of Discharge cetirizine (ZyrTEC) 10 MG tablet Take 1 tablet by mouth daily as needed for allergies or rhinitis. 12/08/2023 escitalopram (Lexapro) 10 MG tablet Take 1 tablet by mouth nightly. Nutritional Supplements (isosource 1.5 Pastor/mL) 55 mL by Per J Tube route every 1 (one) hour. 96717 mL 5 01/19/2025 5 pantoprazole (Protonix) 40 [...] doses at the same time unless your instructional technology coordinator or doctor tells you to. ?? There are many medicines that can interfere with your Protonix. Always check with your instructional technology coordinator or doctor before taking any other medicine, including vcka-gnq-zmjkonp medicines (for example aspirin), vitamins, herbals, or [...] urination ?? Increased thirst Please call your instructional technology coordinator, pharmacist, or doctor if you have any questions about thismedicine. * Kera Mahan - 02/01/2025 12:49 PM EDT Images from the original note were not included. Roxicodone - Video Learn how Roxicodone works to relieve your pain, possible side effects to be aware of, and how to properly use and store this medication. To view the video go to this web address: [email or web address] Or, scan this QR code with your smart phone ?? [facility] * Kera Mahan - 02/01/2025 12:49 PM EDT Images from the original note were not included. [id number] Metoclopramide Brand Name(s): Clopra??, Maxolon??, Metozolv?? ODT, [...] doctor or pharmacist will give you the beam builder helper's patient information sheet (Medication Guide) when you begin treatment with metoclopramide and each time you refill your prescription. Read the information carefully and ask your doctor or pharmacist if you have any questions. You can also visit the Food and Drug Administration (FDA) website (https://www.fda.gov/Drugs/DrugSafety/gky859743.htm) or the beam builder helper's website to obtain the Medication Guide. Talk [...] balance); high blood pressure; depression; breast cancer; asthma;gfdgiuw-1-fngqxlswm dehydrogenase (G-6PD) deficiency (an inherited blood disorder); [...] and out of their sight and reach. https://www.[employer].[email or web address] Unneeded medications should be disposed of in [...] of all of the prescription and nonprescription (fqsb-zyz-vipzkfj) medicines you are taking, as well as [...] or pharmacist about specific clinical use. The [employer] represents that the information provided hereunder was formulated with a reasonable standard of care, and in conformity with professional standards in the field. The [employer] makes no representations or warranties, express or implied, including, but not limited to, any implied warranty of merchantability and/or fitness for a particular purpose, with respect to such information and specifically disclaims all such warranties. Users are advised that decisions regarding drug therapy are complex medical decisions requiring the independent, informed decision of an appropriate health career technical education instructor, and the information is provided for informational purposes only. The entire monograph for a drug should be reviewed for a thorough understanding of the drug's actions, uses and side effects. The [employer] does not endorse or recommend the use of any drug.The information is not a substitute for medical care. AHFS?? Patient Medication Information?. ?? Copyright, 2023. The [employer]??, [address], [address], [place], [place]. All Rights Reserved. Duplication for commercial use must be authorized by [facility]. Selected Revisions: July 26, 2018. AHFS?? Patient Medication Information?. ?? Copyright, 2024 * Bereket LindquistNOEMI - Kera Garcia - 02/01/2025 12:49 PM EDT Images from the original note were not included. [id number] Lidocaine Transdermal Patch Brand Name(s): Absorbine Jr?? Plus, Aspercreme Patch??, Dermalid??, Lidocare??, Lidoderm??, Salonpas??, Ztlido??, Synera?? (containing lidocaine and tetracaine); also available generically WHY is this medicine prescribed? Prescription lidocaine transdermal (Dermalid, Lidoderm, Ztildo) is used to relieve the pain of post-herpetic neuralgia (PHN; burning, stabbing pains, or aches that may last for months or years after a shingles infection). Nonprescription (yzde-qbi-dfllzdn) lidocaine (Absorbine Jr, Aspercreme, Lidoca re, Salonpas, [...] or doctor for a copy of the beam builder helper's information for the patient. Are there OTHER [...] if you have or have ever had bnwnsjv-0-nxomamera dehydrogenase (G-6PD) deficiency (an inherited blood disorder), [...] and out of their sight and reach. https://www.[employer].org Unneeded medications should be disposed of in [...] be awakened, immediately call emergency services at 461. Symptoms of overdose may include: ?? lightheadedness [...] of all of the prescription and nonprescription (vxoh-fhu-byxjhss) medicines you are taking, as well as [...] or pharmacist about specific clinical use. The [employer] represents that the information provided hereunder was formulated with a reasonable standard of care, and in conformity with professional standards in the field. The [employer] makes no representations or warranties, express or implied, including, but not limited to, any implied warranty of merchantability and/or fitness for a particular purpose, with respect to such information and specifically disclaims all such warranties. Users are advised that decisions regarding drug therapy are complex medical decisions requiring the independent, informed decision of an appropriate health career technical education instructor, and the information is provided for informational purposes only. The entire monograph for a drug should be reviewed for a thorough understanding of the drug's actions, uses and side effects. The [employer] does not endorse or recommend the use of any drug.The information is not a substitute for medical care. AHFS?? Patient Medication Information?. ?? Copyright, 2023. The [employer]??, [address], [address], [place], [place]. All Rights Reserved. Duplication for commercial use must be authorized by [facility]. Selected Revisions: March 26, 2021. AHFS?? Patient Medication Information?. ?? Copyright, 2024 * Bereket Hartman - Kera Garcia - 02/01/2025 12:49 PM EDT Images from the original note were not included. [id number] Ibuprofen Brand Name(s): Addaprin??, Advil??, Cedaprin??, I-Prin??, [...] doctor or pharmacist will give you the beam builder helper's patient information sheet (Medication Guide) when you begin treatment with prescription ibuprofen and each time you refill your prescription. Read the information carefully and ask your doctor or pharmacist if you have any questions. You can also visit the Food and Drug Administration (FDA) website (https://www.fda.gov/Drugs/DrugSafety/krw934170.htm) or the beam builder helper's website to obtain the Medication Guide. WHY [...] and out of their sight and reach. https://www.[employer].[email or web address] Unneeded medications should be disposed of in [...] of all of the prescription and nonprescription (cbmo-iuv-zvrazna) medicines you are taking, as well as [...] or pharmacist about specific clinical use. The [employer] represents that the information provided hereunder was formulated with a reasonable standard of care, and in conformity with professional standards in the field. The [employer] makes no representations or warranties, express or implied, including, but not limited to, any implied warranty of merchantability and/or fitness for a particular purpose, with respect to such information and specifically disclaims all such warranties. Users are advised that decisions regarding drug therapy are complex medical decisions requiring the independent, informed decision of an appropriate health career technical education instructor, and the information is provided for informational purposes only. The entire monograph for a drug should be reviewed for a thorough understanding of the drug's actions, uses and side effects. The [employer] does not endorse or recommend the use of any drug.The information is not a substitute for medical care. AHFS?? Patient Medication Information?. ?? Copyright, 2023. The [employer]??, [address], [address], [place], [place]. All Rights Reserved. Duplication for commercial use must be authorized by [facility]. Selected Revisions: June 26, 2023. AHFS?? Patient Medication Information?. ?? Copyright, 2024 * Bereket Hartman - Kera Garcia - 02/01/2025 12:49 PM EDT Images from the original note were not included. [id number] Acetaminophen Brand Name(s): Actamin??, Feverall??, Panadol??, Tempra Quicklets??, Tylenol??, Dayquil?? (as a combination product containing Acetaminophen, Dextromethorphan, Pseudoephedrine), NyQuil Cold/Flu Relief?? (as a combination product containing Acetaminophen, Dextromethorphan, Doxylamine), Percocet?? (as a combination product containing Acetaminophen, Oxycodone) APAP, K-wdoibf-ysvt-aminophenol, Paracetamol IMPORTANT WARNING: Taking too much acetaminophen [...] measuring cup or syringe provided by the beam builder helper to measure each dose of the solution [...] and out of their sight and reach. https://www.[employer].org Unneeded medications should be disposed of in [...] of all of the prescription and nonprescription (psmu-vdu-xvpymfi) medicines you are taking, as well as [...] or pharmacist about specific clinical use. The [employer] represents that the information provided hereunder was formulated with a reasonable standard of care, and in conformity with professional standards in the field. The [employer]. makes no representations or warranties, express or implied, including, but not limited to, any implied warranty of merchantability and/or fitness for a particular purpose, with respect to such information and specifically disclaims all such warranties. Users are advised that decisions regarding drug therapy are complex medical decisions requiring the independent, informed decision of an appropriate health career technical education instructor, and the information is provided for informational purposes only. The entire monograph for a drug should be reviewed for a thorough understanding of the drug's actions, uses and side effects. The [employer] does not endorse or recommend the use of any drug.The information is not a substitute for medical care. AHFS?? Patient Medication Information?. ?? Copyright, 2023. The [employer]??, [address], [address], [place], [place]. All Rights Reserved. Duplication for commercial use must be authorized by [facility]. Selected Revisions: June 26, 2023. AHFS?? [...] Your doctor will see you at the [facility]. ?? Your doctor may give [...] a tub bath for 2 weeks. - [place]/Stitches will be removed at follow up appointment [...] Clinic discharge # - For urgent questions/concerns: [facility] hotline: , option 4 - ask for the thoracic surgeon safety consultant. Medications: - You should take Tylenol and/or [...] DO PCP name and Address: Caridad Oliver, WORK STATION SUPPORT SPECIALIST [address] [place] [address] / [place] [address] Referring provider name and address: No referring [...] Your Medications These medications were sent to [facility] - [place], [place] - [address] [facility] [address] acetaminophen 160 MG/5ML solution ibuprofen 100 MG/5ML [...] Clinic discharge # - For urgent questions/concerns: [facility] hotline: , option 4 - ask for the thoracic surgeon safety consultant. Outpatient Follow-Up No future appointments. Test Results [...] Note Candido Rivera 54 y.o. female CSN: [id number] Admission: 01/25/2025 5:44 AM Primary Problem: Achalasia Primary Planning Aide: Primary Caregiver: Self Assistance Available at Discharge: Current Outpatient/Agency/Support Group: infusion therapy, home Availability of Care Givers (#Hours): 24 hours Family/Planning Aide(s) Willingness Assessed to care for patient at home: Yes Family/Planning Aide(s) Readiness Assessed to care for patient at [...] provide transport home. Resumption order/referral sent to [facility] with Bella aware. No other needs. Que Sahu RN Case Division Service Manager 4 * Hospital Course - Jimi Lawrence [...] from the original note were not included. [facility] Department of Surgery Section of Thoracic Surgery ICU Progress Note 01/31/25 Candido Rivera History of Present Illness Candido Rivera is a 54 y.o. female PMHx GERD, end stage achalasia s/p Heller myotomy and [place] fundoplication (2016) 6 Days Post-Op from a [...] Evaluation Note Candido Rivera 54 y.o. female [facility]: [id number] Room/Bed 122/122A Nutrition evaluation type: assessment Reason [...] (Calculated): 29.1 Weight Evaluation: Overweight (BMI 25-29.9) [place] Body Weight (kg): 52.3 Percent [place] Body Weight: 142 Adjusted Body Weight (kg): [...] oz) Estimated Needs: Kcal/ K-35 Kcal Provided: 9780-9803 Kcal Needs Based On: Adjusted weight Gm [...] Education Provided: Will monitor Pertinent home medications: Latter-Day needs: Nutrition Focused Physical Exam: Physical exam [...] Note Candido Rivera 54 y.o. female CSN: [id number] Admission: 01/25/2025 5:44 AM Primary Problem: Achalasia [...] from the original note were not included. [facility] Department of Surgery Section of Thoracic Surgery ICU Progress Note 01/30/25 Candido Rivera History of Present Illness Candido Rivera is a 54 y.o. female PMHx GERD, end stage achalasia s/p Heller myotomy and [place] fundoplication (2017) 5 Days Post-Op from a [...] from the original note were not included. [facility] Department of Surgery Section of Thoracic [...] bleeding or hematoma. Vein images sent to [facility]. Consult completed. * Care Plan [...] from the original note were not included. [facility] of [facility] Department of Surgery Section of Thoracic Surgery [...] from the original note were not included. [facility] Department of Surgery Section of Thoracic [...] Note Candido Rivera 54 y.o. female CSN: [id number] Room/Bed 236/236A Nutrition evaluation type: assessment Reason [...] Scale Score: 15 Nando Scale Score: 17 Sarbjti/Cubbin Pressure Risk Score: 39 Edema: Generalized Allergies: [...] (Calculated): 28.91 Weight Evaluation: Overweight (BMI 25-29.9) [place] Body Weight (kg): 52.3 Percent [place] Body Weight: 141 Adjusted Body Weight (kg): [...] oz) Estimated Needs: Kcal/ K-35 Kcal Provided: 9956-9504 Kcal Needs Based On: Adjusted weight Gm Protein/ Kg : 1.3-1.6 Protein Provided: 75-92 Protein Needs Based On: Adjusted weight Metabolic Cart Study Results: Current Nutrition Intake: Diet Order: NPO Diet Experience and Nutrition History: Diet Education Provided: Will monitor Pertinent home medications: Latter-Day needs: Nutrition Focused Physical Exam: Unable to [...] Note Candido Rivera 54 y.o. female CSN: [id number] Admission: 01/25/2025 5:44 AM Primary Problem: Achalasia Automotive Mechanic reviewed chart and spoke with the patient at bedside to complete this Initial Case Management Assessment. PCP: Rogerio Mays Emergency Contact: Extended Emergency Contact Information Primary Emergency Contact: Carlee Rivera Mobile Relation: Sister Allocations Clerk needed? No Insurance: Primary Visit Coverage Payer Plan Sponsor Code Group Number Group Name AMANDA PATEL CRISTIAN/[employer] [id number] Primary Visit Coverage Subscriber Subscriber ID Subscriber Name Subscriber SSN Subscriber Address [id number] RIVERACANDIDO [place] [id number] [place] [address] [place] [id number] Patient information: Primary Caregiver: Self Support System: Immediate family Daily Living Activities: Functional Status: Independent Living Arrangements: Children Type of Residence: Private residence [address] [place] [address] Smoker in the Home?: No Current DME: [...] DME Provider: Garry Living Will/Advance Directive/Power of Handkerchief Maker /Guardian: Have you reviewed your Advance Directive [...] PCP is Hood Mays. Patient has Traditional [employer] insurance and uses [facility] pharmacy in [place]. No CM/SW needs identified. Will continue to follow and assist. Carlee Díaz RN * Progress Notes - Di Deluca MD - 01/26/2025 6:31 AM EDT Images from the original note were not included. [facility] of Medicine Department of Surgery Section of [...] from the original note were not included. [facility] Department of Surgery Division of Thoracic Surgery [...] nursing staff. I have notified senior resident/attending safety consultant with any issues or concerns. Jimi Lawrence DO, PGY1 Thoracic Surgery * Op Note - Jeffery Devine DO - 01/25/2025 8:55 AM EDT Operative Note Date: 01/25/25 Location: [facility] OR Name: Candido Rivera, : 1970, Diagnoses: Pre-op Diagnosis End Stage Achalasia Post-op Diagnosis End Stage Achalasia Procedure(s): Bronch, EGD, Minimally Invasive Estelita esophagectomy, Lap J tube insertion Attending Surgeon(s): * Jeffery Devine - Primary Drill Operator Automatic(s): * Yeison Gallego MD - Resident - [...] Output (mL) 0 mL 01/26/25 0600 NG/OG [place] Sump Nasogastric Right nostril (Active) Placement Verification [...] was performed identifying the Luis drain the Kula drain was delivered into the neck as well as the esophagus stomach and conduit. The proximal esophagus was divided with a purple Endo-CURTIS stapler the specimen was test off the table and sent to pathology for evaluation. An NGT was passed under direct visualization. A stapled kiak-zu-htih anastomosis per was performed with sequential firings [...] from the original note were not included. [facility] Department of Surgery Section of Thoracic [...] Tube route every 1 (one) hour., Disp: 03763 mL, Rfl: 5 Physical exam: There were [...] AM EST Appointment [facility] [address] [place] [address] 08/31/2025 9:30 AM EST Office Visit [facility] [address] [facility]nd [place] [address] Jeffery Devine, DO [address] [facility] [address] [place] [address] Scheduled Referrals Name Type Priority Associated Diagnoses Order Schedule Discharge Ambulatory referral to [facility] Outpatient Referral Routine Achalasia 1 [...] EXAM Routine 01/25/2025 12:18 PM EDT Achalasia SC ESOPHAGECTOMY DISTAL 2/3 W/LAPAROSCOPIC MOBLJ 01/25/2025 7:50 [...] LAB HEMATOLOGY METHOD 02/01/2025 10:20 AM EDT [facility] RBC Count 3.60(L) 3.90 - 5.20 10*6/uL LAB HEMATOLOGY METHOD 02/01/2025 10:20 AM EDT [facility] HGB 10.3(L) 11.2 - 15.7 g/dL LAB HEMATOLOGY METHOD 02/01/2025 10:20 AM EDT [facility] HCT 31.9(L) 34.0 - 45.0 % LAB HEMATOLOGY METHOD 02/01/2025 10:20 AM EDT [facility] Platelet Count 259 155 - 369 10*3/uL LAB HEMATOLOGY METHOD 02/01/2025 10:20 AM EDT [facility] MCV 89 79 - 98 fL LAB HEMATOLOGY METHOD 02/01/2025 10:20 AM EDT [facility] MCH 28.6 26.0 - 32.0 pg LAB HEMATOLOGY METHOD 02/01/2025 10:20 AM EDT [facility] MCHC 32.3 30.7 - 35.5 g/dL LAB HEMATOLOGY METHOD 02/01/2025 10:20 AM EDT [facility] RDW 14.1 11.5 - 14.5 % LAB HEMATOLOGY METHOD 02/01/2025 10:20 AM EDT [facility] MPV 10.6 8.8 - 12.5 fL LAB HEMATOLOGY METHOD 02/01/2025 10:20 AM EDT [facility] nRBC 0.0 <=0.0 per 100 WBCs LAB HEMATOLOGY METHOD 02/01/2025 10:20 AM EDT [facility] Blood Venous blood specimen / Unknown Venipuncture / Unknown 02/01/2025 9:57 AM EDT 02/01/2025 10:13 AM EDT Diamante Weber WORK STATION SUPPORT SPECIALIST LAB BLOOD ORDERABLES Final Re sult [facility] [address] [place] [address] * Magnesium, Plasma (02/01/2025 9:57 AM EDT) Magnesium, Plasma 2.2 1.9 - 2.4 mg/dL 02/01/2025 10:43 AM EDT [facility] Blood Venous blood specimen / Unknown Venipuncture / Unknown 02/01/2025 9:57 AM EDT 02/01/2025 10:13 AM EDT Diamante Kolby Gus WORK STATION SUPPORT SPECIALIST LAB BLOOD ORDERABLES Final Re sult [facility] [address] [place] [address] * (ABNORMAL) Renal Function Panel, Plasma (02/01/2025 9:57 AM EDT) Glucose, Plasma 98 74 - 99 mg/dL 02/01/2025 10:43 AM EDT [facility] BUN, Plasma 15 7 - 21 mg/dL 02/01/2025 10:43 AM EDT [facility] Creatinine, Plasma 0.56(L) 0.60 - 1.10 mg/dL 02/01/2025 10:43 AM EDT [facility] BUN/Creatinine Ratio 27 02/01/2025 10:43 AM EDT [facility] Sodium, Plasma 140 136 - 145 mmol/L 02/01/2025 10:43 AM EDT [facility] Potassium, Plasma 4.2 3.6 - 4.9 mmol/L 02/01/2025 10:43 AM EDT [facility] Chloride, Plasma 104 97 - 107 mmol/L 02/01/2025 10:43 AM EDT [facility] CO2, Plasma 25 22 - 29 mmol/L 02/01/2025 10:43 AM EDT [facility] Anion Gap 11 6 - 16 mmol/L 02/01/2025 10:43 AM EDT [facility] Total Calcium, Plasma 8.7(L) 8.9 - 10.2 mg/dL 02/01/2025 10:43 AM EDT [facility] Phosphorus, Plasma 3.9 2.5 - 4.5 mg/dL 02/01/2025 10:43 AM EDT [facility] Albumin, Plasma 3.2(L) 3.5 - 5.2 g/dL 02/01/2025 10:43 AM EDT [facility] LAB eGFRcr 110.0 mL/min/1.7 3m*2 02/01/2025 10:43 AM EDT [facility] Comment:Reported eGFRcr in m L/min/1.73m2 is based the CKD-EPI 2020 equation that does not use a race coefficient. Blood Venous blood specimen / Unknown Venipuncture / Unknown 02/01/2025 9:57 AM EDT 02/01/2025 10:13 AM EDT Diamante Weber WORK STATION SUPPORT SPECIALIST LAB BLOOD ORDERABLES Final Re sult [facility] [address] [place] [address] * XR Chest 1 View (02/01/2025 6:56 [...] MD on 02/01/2025 9:35 AM Diamante Weber WORK STATION SUPPORT SPECIALIST IMG XR PROCEDURES Final Resul t * [...] Comment 02/01/2025 12:00 AM EDT [facility]ALTHCARE LAB Chronometer Assembler ID [email or web address] Genia [email or web address] 02/01/2025 12:00 AM EDT HEALTHCARE LAB Device ID [id number] 02/01/2025 12:00 AM EDT HEALTHCARE LAB Specimen Type POC Capillary 02/01/2025 12:00 AM EDT HEALTHCARE LAB Blood Capillary blood specimen / Unknown 01/31/2025 11:58 PM EDT 02/01/2025 12:00 AM EDT us Jeffery Devine DO LAB POINT OF CARE TE ST DOCKED DEVICE UNSOLICITED RESULTS Final Result [facility] [address] [place] [address] * (ABNORMAL) POCT glucose meter (01/31/2025 5:01 PM EDT) [facility] POCT Glucose 152(H) 74 - 99 [...] Comment 01/31/2025 5:03 PM EDT HEALTHCARE LAB Chronometer Assembler ID Yair Dia 025 5:03 PM EDT HEALTHCARE LAB Device ID [id number] 01/31/2025 5:03 PM EDT HEALTHCARE LAB Specimen Type POC Capillary 01/31/2025 5:03 PM EDT [facility] Blood Capillary blood specimen / Unknown 01/31/2025 5:01 PM EDT 01/31/2025 5:03 PM EDT Jeffery Devine DO LAB POINT OF CARE TE ST DOCKED DEVICE UNSOLICITED RESULTS Final Result [facility] [address] [place] [address] * (ABNORMAL) POCT glucose meter (01/31/2025 12:01 PM EDT) [facility] POCT Glucose 117(H) 74 - 99 [...] 01/31/2025 12:03 PM EDT [facility] Chronometer Assembler ID Yair Dia 025 12:03 PM EDT [facility] Device ID [id number] 01/31/2025 12:03 PM EDT [facility] Specimen Type POC Capillary 01/31/2025 12:03 PM EDT [facility] Blood Capillary blood specimen / Unknown 01/31/2025 12:01 PM EDT 01/31/2025 12:03 PM EDT us Jeffery Devine DO LAB POINT OF CARE TE ST DOCKED DEVICE UNSOLICITED RESULTS Final Result Performing Organization Address City/[facility]/ZIP Co de Phone Number [facility] [address] [place] [address] * (ABNORMAL) Magnesium, Plasma (01/31/2025 10:50 AM EDT) Magnesium, Plasma 1.7(L) 1.9 - 2.4 mg/dL 01/31/2025 12:31 PM EDT [facility] Blood Venous blood specimen / Unknown Venipuncture / Unknown 01/31/2025 10:50 AM EDT 01/31/2025 11:07 AM EDT us Jeffery Devine DO LAB BLOOD ORDERABLES Final Re sult [facility] [address] [place] [address] * (ABNORMAL) Renal Function Panel, Plasma (01/31/2025 10:50 AM EDT) Glucose, Plasma 125(H) 74 - 99 mg/dL 01/31/2025 12:31 PM EDT [facility] BUN, Plasma 14 7 - 21 mg/dL 01/31/2025 12:31 PM EDT [facility] Creatinine, Plasma 0.57(L) 0.60 - 1.10 mg/dL 01/31/2025 12:31 PM EDT [facility] BUN/Creatinine Ratio 25 01/31/2025 12:31 PM EDT [facility] Sodium, Plasma 139 136 - 145 mmol/L 01/31/2025 12:31 PM EDT [facility] Potassium, Plasma 4.3 3.6 - 4.9 mmol/L 01/31/2025 12:31 PM EDT [facility] Chloride, Plasma 104 97 - 107 mmol/L 01/31/2025 12:31 PM EDT [facility] CO2, Plasma 21(L) 22 - 29 mmol/L 01/31/2025 12:31 PM EDT [facility] Anion Gap 14 6 - 16 mmol/L 01/31/2025 12:31 PM EDT [facility] Total Calcium, Plasma 8.5(L) 8.9 - 10.2 mg/dL 01/31/2025 12:31 PM EDT [facility] Phosphorus, Plasma 3.2 2.5 - 4.5 mg/dL 01/31/2025 12:31 PM EDT [facility] Albumin, Plasma 3.3(L) 3.5 - 5.2 g/dL 01/31/2025 12:31 PM EDT [facility] eGFRcr 109.5 mL/min/1.7 3m*2 01/31/2025 12:31 PM EDT [facility] Comment:Reported eGFRcr in m L/min/1.73m2 is based the CKD-EPI 2020 equation that does not use a race coefficient. Blood Venous blood specimen / Unknown Venipuncture / Unknown 01/31/2025 10:50 AM EDT 01/31/2025 11:07 AM EDT Jeffery Devine DO LAB BLOOD ORDERABLES Final Re sult [facility] [address] [place] [address] * (ABNORMAL) CBC W/O Differential (01/31/2025 10:50 AM EDT) WBC Count 12.95(H) 3.70 - 10.30 10*3/uL LAB HEMATOLOGY METHOD 01/31/2025 11:24 AM EDT [facility] RBC Count 3.73(L) 3.90 - 5.20 10*6/uL LAB HEMATOLOGY METHOD 01/31/2025 11:24 AM EDT [facility] HGB 11.0(L) 11.2 - 15.7 g/dL LAB HEMATOLOGY METHOD 01/31/2025 11:24 AM EDT [facility] HCT 32.6(L) 34.0 - 45.0 % LAB HEMATOLOGY METHOD 01/31/2025 11:24 AM EDT [facility] Platelet Count 263 155 - 369 10*3/uL LAB HEMATOLOGY METHOD 01/31/2025 11:24 AM EDT [facility] MCV 87 79 - 98 fL LAB HEMATOLOGY METHOD 01/31/2025 11:24 AM EDT [facility] MCH 29.5 26.0 - 32.0 pg LAB HEMATOLOGY METHOD 01/31/2025 11:24 AM EDT [facility] MCHC 33.7 30.7 - 35.5 g/dL LAB HEMATOLOGY METHOD 01/31/2025 11:24 AM EDT [facility] RDW 14.5 11.5 - 14.5 % LAB HEMATOLOGY METHOD 01/31/2025 11:24 AM EDT [facility] MPV 10.4 8.8 - 12.5 fL LAB HEMATOLOGY METHOD 01/31/2025 11:24 AM EDT [facility] nRBC 0.0 <=0.0 per 100 WBCs LAB HEMATOLOGY METHOD 01/31/2025 11:24 AM EDT [facility] Blood Venous blood specimen / Unknown Venipuncture / Unknown 01/31/2025 10:50 AM EDT 01/31/2025 11:08 AM EDT Jeffery Devine DO LAB BLOOD ORDERABLES Final Re sult [facility] [address] [place] [address] * XR Chest 1 View (01/31/2025 6:07 [...] glucose meter (01/31/2025 5:28 AM EDT) Pathologist [facility] POCT Glucose 93 74 - 99 mg/dL [...] 01/31/2025 5:29 AM EDT [facility] Chronometer Assembler ID Yair Dia 025 5:29 AM EDT [facility] Device ID [id number] 01/31/2025 5:29 AM EDT [facility] Specimen Type POC Capillary 01/31/2025 5:29 AM EDT [facility] Blood Capillary blood specimen / Unknown 01/31/2025 5:28 AM EDT 01/31/2025 5:29 AM EDT us Jeffery Devine DO LAB POINT OF CARE TE ST DOCKED DEVICE UNSOLICITED RESULTS Final Result [facility] [address] [place] [address] * (ABNORMAL) POCT glucose meter (01/30/2025 11:47 PM EDT) [facility] POCT Glucose 118(H) 74 - 99 [...] 01/30/2025 11:51 PM EDT [facility] Chronometer Assembler ID Denise Nuno 01/30/2025 11:51 PM EDT [facility] Device ID [id number] 01/30/2025 11:51 PM EDT [facility] Specimen Type POC Capillary 01/30/2025 11:51 PM EDT HEALTH[facility]ARE LAB Blood Capillary blood specimen / Unknown 01/30/2025 11:47 PM EDT 01/30/2025 11:51 PM EDT Jeffery Devine DO LAB POINT OF CARE TE ST DOCKED DEVICE UNSOLICITED RESULTS Final Result [facility] [address] [place] [address] * (ABNORMAL) POCT glucose meter (01/30/2025 5:44 PM EDT) [facility] POCT Glucose 125(H) 74 - 99 [...] 01/30/2025 5:46 PM EDT [facility] Chronometer Assembler ID Lian Rene 025 5:46 PM EDT [facility] Device ID [id number] 01/30/2025 5:46 PM EDT HEALTHCARE LAB Specimen Type POC Capillary 01/30/2025 5:46 PM EDT [facility] Blood Capillary blood specimen / Unknown 01/30/2025 5:44 PM EDT 01/30/2025 5:46 PM EDT us Jeffery Devine DO LAB POINT OF CARE TE ST DOCKED DEVICE UNSOLICITED RESULTS Final Result Performing Organization Address City/[facility]/ZIP Co de Phone Number HEALTHCARE LAB [address] [place] [address] * POCT glucose meter (01/30/2025 12:06 PM EDT) [facility] POCT Glucose 78 74 - 99 [...] Comment 01/30/2025 12:08 PM EDT HEALTHCARE LAB Chronometer Assembler ID Lian Rene 025 12:08 PM EDT [facility] Device ID [id number] 01/30/2025 12:08 PM EDT [facility] Specimen Type POC Capillary 01/30/2025 12:08 PM EDT [facility] Blood Capillary blood specimen / Unknown 01/30/2025 12:06 PM EDT 01/30/2025 12:08 PM EDT us Jeffery Devine DO LAB POINT OF CARE TE ST DOCKED DEVICE UNSOLICITED RESULTS Final Result Performing Organization Address City/[facility] Co de Phone Number HEALTHCARE LAB [address] [place] [address] * Magnesium, Plasma (01/30/2025 10:22 AM EDT) Pathologist [facility] Magnesium, Plasma 1.9 1.9 - 2.4 mg/dL 01/30/2025 11:11 AM EDT [facility] Blood Venous blood specimen / Unknown Venipuncture / Unknown 01/30/2025 10:22 AM EDT 01/30/2025 10:36 AM EDT us Jeffery Devine DO LAB BLOOD ORDERABLES Final Re sult [facility] [address] [place] [address] * (ABNORMAL) Renal Function Panel, Plasma (01/30/2025 10:22 AM EDT) Glucose, Plasma 102(H) 74 - 99 mg/dL 01/30/2025 11:11 AM EDT [facility] BUN, Plasma 9 7 - 21 mg/dL 01/30/2025 11:11 AM EDT [facility] Creatinine, Plasma 0.55(L) 0.60 - 1.10 mg/dL 01/30/2025 11:11 AM EDT [facility] BUN/Creatinine Ratio 16 01/30/2025 11:11 AM EDT [facility] Sodium, Plasma 143 136 - 145 mmol/L 01/30/2025 11:11 AM EDT [facility] Potassium, Plasma 4.2 3.6 - 4.9 mmol/L 01/30/2025 11:11 AM EDT [facility] Comment:Hemolyzed, result ma y be falsely increased. Chloride, Plasma 107 97 - 107 mmol/L 01/30/2025 11:11 AM EDT [facility] CO2, Plasma 22 22 - 29 mmol/L 01/30/2025 11:11 AM EDT [facility] Anion Gap 14 6 - 16 mmol/L 01/30/2025 11:11 AM EDT [facility] Total Calcium, Plasma 9.6 8.9 - 10.2 mg/dL 01/30/2025 11:11 AM EDT [facility] Phosphorus, Plasma 4.8(H) 2.5 - 4.5 mg/dL 01/30/2025 11:11 AM EDT [facility] Albumin, Plasma 3.6 3.5 - 5.2 g/dL 01/30/2025 11:11 AM EDT [facility] eGFRcr 110.4 mL/min/1.7 3m*2 01/30/2025 11:11 AM EDT [facility] Comment:Reported eGFRcr in m L/min/1.73m2 is based the CKD-EPI 2020 equation that does not use a race coefficient. Blood Venous blood specimen / Unknown Venipuncture / Unknown 01/30/2025 10:22 AM EDT 01/30/2025 10:36 AM EDT Jeffery Devine DO LAB BLOOD ORDERABLES Final Re sult [facility] [address] [place] [address] * CBC W/O Differential (01/30/2025 10:22 AM EDT) WBC Count 8.32 3.70 - 10.30 10*3/uL LAB HEMATOLOGY METHOD 01/30/2025 10:55 AM EDT [facility] RBC Count 4.26 3.90 - 5.20 10*6/uL LAB HEMATOLOGY METHOD 01/30/2025 10:55 AM EDT [facility] HGB 12.3 11.2 - 15.7 g/dL LAB HEMATOLOGY METHOD 01/30/2025 10:55 AM EDT [facility] HCT 36.9 34.0 - 45.0 % LAB HEMATOLOGY METHOD 01/30/2025 10:55 AM EDT [facility] Platelet Count 318 155 - 369 10*3/uL LAB HEMATOLOGY METHOD 01/30/2025 10:55 AM EDT [facility] MCV 87 79 - 98 fL LAB HEMATOLOGY METHOD 01/30/2025 10:55 AM EDT [facility] MCH 28.9 26.0 - 32.0 pg LAB HEMATOLOGY METHOD 01/30/2025 10:55 AM EDT [facility] MCHC 33.3 30.7 - 35.5 g/dL LAB HEMATOLOGY METHOD 01/30/2025 10:55 AM EDT [facility] RDW 14.3 11.5 - 14.5 % LAB HEMATOLOGY METHOD 01/30/2025 10:55 AM EDT [facility] MPV 10.7 8.8 - 12.5 fL LAB HEMATOLOGY METHOD 01/30/2025 10:55 AM EDT [facility] nRBC 0.0 <=0.0 per 100 WBCs LAB HEMATOLOGY METHOD 01/30/2025 10:55 AM EDT [facility] Blood Venous blood specimen / Unknown Venipuncture / Unknown 01/30/2025 10:22 AM EDT 01/30/2025 10:43 AM EDT Jeffery Devine DO LAB BLOOD ORDERABLES Final Re sult [facility] [address] [place] [address] * FL Barium Swallow (01/30/2025 10:03 AM [...] extraluminal contrast or anastomotic leak. Other: On body mechanic apprentice imaging, unchanged positioning of the surgical clips [...] of extraluminal contrast oranastomotic leak. Other: On body mechanic apprentice imaging, unchanged positioning of the surgical clipsoverlying [...] 01/29/2025 6:07 PM EDT [facility] Chronometer Assembler ID Lian Rene 025 6:07 PM EDT [facility] Device ID [id number] 01/29/2025 6:07 PM EDT [facility] Specimen Type POC Capillary 01/29/2025 6:07 PM EDT [facility]ALTH[facility]ARE LAB Blood Capillary blood specimen / Unknown 01/29/2025 6:05 PM EDT 01/29/2025 6:07 PM EDT us Jeffery Devine DO LAB POINT OF CARE TE ST DOCKED DEVICE UNSOLICITED RESULTS Final Result Performing Organization Address [facility] [[email or web address]] de Phone Number HEALTHCARE LAB [address] [place] [address] * (ABNORMAL) POCT glucose meter (01/29/2025 11:17 [...] Comment 01/29/2025 11:18 AM EDT [facility]ARE LAB Chronometer Assembler ID Lian Rene 025 11:18 AM EDT HEALTHCARE LAB Device ID [id number] 01/29/2025 11:18 AM EDT [facility]ALTH[facility]ARE LAB Specimen Type POC Capillary 01/29/2025 11:18 AM EDT [facility] Blood Capillary blood specimen / Unknown 01/29/2025 11:17 AM EDT 01/29/2025 11:18 AM EDT us Jeffery Devine DO LAB POINT OF CARE TE ST DOCKED DEVICE UNSOLICITED RESULTS Final Result Performing Organization Address City/[facility] Co de Phone Number HEALTHCARE LAB [address] [place] [address] * XR Chest 1 View (01/29/2025 6:08 [...] - 99 mg/dL 01/29/2025 5:56 AM EDT [facility] Comment:Accuracy of a glucos e result [...] for testing. Comment 01/29/2025 5:56 AM EDT [facility] Chronometer Assembler ID Yakybets, Clementina 01/29/2025 5:56 AM EDT [facility] Device ID [id number] 01/29/2025 5:56 AM EDT HEALTHCARE LAB Specimen Type POC Capillary 01/29/2025 5:56 AM EDT [facility] Blood Capillary blood specimen / Unknown 01/29/2025 5:48 AM EDT 01/29/2025 5:56 AM EDT us Jeffery Devine DO LAB POINT OF CARE TE ST DOCKED DEVICE UNSOLICITED RESULTS Final Result Performing Organization Address City/[facility]/ZIP Co de Phone Number [facility] [address] [place] [address] * Magnesium, Plasma (01/29/2025 1:38 AM EDT) Magnesium, Plasma 2.2 1.9 - 2.4 mg/dL 01/29/2025 2:14 AM EDT [facility] Blood Venous blood specimen / Unknown Venipuncture / Unknown 01/29/2025 1:38 AM EDT 01/29/2025 1:47 AM EDT us Jeffery Devine DO LAB BLOOD ORDERABLES Final Re sult [facility] [address] [place] [address] * (ABNORMAL) Renal Function Panel, Plasma (01/29/2025 1:38 AM EDT) Glucose, Plasma 120(H) 74 - 99 mg/dL 01/29/2025 2:14 AM EDT [facility] BUN, Plasma 5(L) 7 - 21 mg/dL 01/29/2025 2:14 AM EDT [facility] Creatinine, Plasma 0.53(L) 0.60 - 1.10 mg/dL 01/29/2025 2:14 AM EDT [facility] BUN/Creatinine Ratio 9 01/29/2025 2:14 AM EDT [facility] Sodium, Plasma 138 136 - 145 mmol/L 01/29/2025 2:14 AM EDT [facility] Potassium, Plasma 4.3 3.6 - 4.9 mmol/L 01/29/2025 2:14 AM EDT [facility] Chloride, Plasma 111(H) 97 - 107 mmol/L 01/29/2025 2:14 AM EDT [facility] CO2, Plasma 20(L) 22 - 29 mmol/L 01/29/2025 2:14 AM EDT [facility] Anion Gap 7 6 - 16 mmol/L 01/29/2025 2:14 AM EDT [facility] Total Calcium, Plasma 7.9(L) 8.9 - 10.2 mg/dL 01/29/2025 2:14 AM EDT [facility] Phosphorus, Plasma 3.1 2.5 - 4.5 mg/dL 01/29/2025 2:14 AM EDT [facility] Albumin, Plasma 3.1(L) 3.5 - 5.2 g/dL 01/29/2025 2:14 AM EDT [facility] eGFRcr 111.4 mL/min/1.7 3m*2 01/29/2025 2:14 AM EDT [facility] Comment:Reported eGFRcr in m L/min/1.73m2 is based the CKD-EPI 2020 equation that does not use a race coefficient. Blood Venous blood specimen / Unknown Venipuncture / Unknown 01/29/2025 1:38 AM EDT 01/29/2025 1:47 AM EDT us Jeffery Devine DO LAB BLOOD ORDERABLES Final Re sult [facility] [address] [place] [address] * (ABNORMAL) CBC W/O Differential (01/29/2025 1:38 AM EDT) WBC Count 12.38(H) 3.70 - 10.30 10*3/uL LAB HEMATOLOGY METHOD 01/29/2025 1:54 AM EDT [facility] RBC Count 3.49(L) 3.90 - 5.20 10*6/uL LAB HEMATOLOGY METHOD 01/29/2025 1:54 AM EDT [facility] HGB 10.4(L) 11.2 - 15.7 g/dL LAB HEMATOLOGY METHOD 01/29/2025 1:54 AM EDT [facility] HCT 30.6(L) 34.0 - 45.0 % LAB HEMATOLOGY METHOD 01/29/2025 1:54 AM EDT [facility] Platelet Count 241 155 - 369 10*3/uL LAB HEMATOLOGY METHOD 01/29/2025 1:54 AM EDT [facility] MCV 88 79 - 98 fL LAB HEMATOLOGY METHOD 01/29/2025 1:54 AM EDT [facility] MCH 29.8 26.0 - 32.0 pg LAB HEMATOLOGY METHOD 01/29/2025 1:54 AM EDT [facility] MCHC 34.0 30.7 - 35.5 g/dL LAB HEMATOLOGY METHOD 01/29/2025 1:54 AM EDT [facility] RDW 14.2 11.5 - 14.5 % LAB HEMATOLOGY METHOD 01/29/2025 1:54 AM EDT [facility] MPV 10.4 8.8 - 12.5 fL LAB HEMATOLOGY METHOD 01/29/2025 1:54 AM EDT [facility] nRBC 0.0 <=0.0 per 100 WBCs LAB HEMATOLOGY METHOD 01/29/2025 1:54 AM EDT [facility] Blood Venous blood specimen / Unknown Venipuncture / Unknown 01/29/2025 1:38 AM EDT 01/29/2025 1:47 AM EDT Jeffery Devine DO LAB BLOOD ORDERABLES Final Re sult [facility] [address] [place] [address] * (ABNORMAL) POCT glucose meter (01/28/2025 11:18 [...] Comment 01/28/2025 11:22 PM EDT [facility] Chronometer Assembler ID Sudheer Neely 025 11:22 PM EDT [facility] Device ID [id number] 01/28/2025 11:22 PM EDT [facility] Specimen Type POC Capillary 01/28/2025 11:22 PM EDT [facility] Blood Capillary blood specimen / Unknown 01/28/2025 11:18 PM EDT 01/28/2025 11:22 PM EDT us Jeffery Devine DO LAB POINT OF CARE TE ST DOCKED DEVICE UNSOLICITED RESULTS Final Result Performing Organization Address [facility] Co de Phone Number [facility] [address] [place] [address] * (ABNORMAL) POCT glucose meter (01/28/2025 6:13 [...] 01/28/2025 6:15 PM EDT [facility] Chronometer Assembler ID Sophia Dickey 6:15 PM EDT [facility] Device ID [id number] 01/28/2025 6:15 PM EDT [facility] Specimen Type POC Capillary 01/28/2025 6:15 PM EDT [facility] Blood Capillary blood specimen / Unknown 01/28/2025 6:13 PM EDT 01/28/2025 6:15 PM EDT us Jeffery Devine DO LAB POINT OF CARE TE ST DOCKED DEVICE UNSOLICITED RESULTS Final Result Performing Organization Address City/[facility]/ZIP Co de Phone Number [facility] [address] [place] [address] * PERIPHERAL IV ([employer]) (01/28/2025 3:56 [...] for testing. Comment 01/28/2025 11:28 AM EDT [facility] Chronometer Assembler ID ShSophia guerra 11:28 AM EDT [facility] Device ID [id number] 01/28/2025 11:28 AM EDT [facility]ALTHCARE LAB Specimen Type POC Capillary 01/28/2025 11:28 AM EDT [facility] Blood Capillary blood specimen / Unknown 01/28/2025 11:17 AM EDT 01/28/2025 11:28 AM EDT us Jeffery Devine DO LAB POINT OF CARE TE ST DOCKED DEVICE UNSOLICITED RESULTS Final Result [facility] [address] [place] [address] * (ABNORMAL) POCT glucose meter (01/28/2025 8:31 AM EDT) [facility] POCT Glucose 101(H) 74 - 99 [...] Comment 01/28/2025 8:33 AM EDT HEALTHCARE LAB Chronometer Assembler ID Sophia Dickey 8:33 AM EDT [facility]ALTHCARE LAB Device ID [id number] 01/28/2025 8:33 AM EDT [facility] Specimen Type POC Capillary 01/28/2025 8:33 AM EDT [facility] Blood Capillary blood specimen / Unknown 01/28/2025 8:31 AM EDT 01/28/2025 8:33 AM EDT us Jeffery Devine DO LAB POINT OF CARE TE ST DOCKED DEVICE UNSOLICITED RESULTS Final Result Performing Organization Address [facility]/ZIP Co de Phone Number HEALTHCARE [facility] [address] [place] [address] * (ABNORMAL) Magnesium, Plasma (01/28/2025 6:08 AM EDT) [facility] Magnesium, Plasma 1.7(L) 1.9 - 2.4 mg/dL 01/28/2025 7:01 AM EDT [facility] Blood Venous blood specimen / Unknown Venipuncture / Unknown 01/28/2025 6:08 AM EDT 01/28/2025 6:32 AM EDT us Jeffery Devine DO LAB BLOOD ORDERABLES Final Re sult Performing Organization Address City/[facility]/ZIP Co de Phone Number [facility] [address] [place] [address] * (ABNORMAL) Renal Function Panel, Plasma (01/28/2025 6:08 AM EDT) Glucose, Plasma 454(H) 74 - 99 mg/dL 01/28/2025 7:01 AM EDT [facility] BUN, Plasma 5(L) 7 - 21 mg/dL 01/28/2025 7:01 AM EDT [facility] Creatinine, Plasma 0.53(L) 0.60 - 1.10 mg/dL 01/28/2025 7:01 AM EDT [facility] BUN/Creatinine Ratio 9 01/28/2025 7:01 AM EDT [facility] Sodium, Plasma 137 136 - 145 mmol/L 01/28/2025 7:01 AM EDT [facility] Potassium, Plasma 3.2(L) 3.6 - 4.9 mmol/L 01/28/2025 7:01 AM EDT [facility] Chloride, Plasma 106 97 - 107 mmol/L 01/28/2025 7:01 AM EDT [facility] CO2, Plasma 19(L) 22 - 29 mmol/L 01/28/2025 7:01 AM EDT [facility] Anion Gap 12 6 - 16 mmol/L 01/28/2025 7:01 AM EDT [facility] Total Calcium, Plasma 7.8(L) 8.9 - 10.2 mg/dL 01/28/2025 7:01 AM EDT [facility] Phosphorus, Plasma 2.3(L) 2.5 - 4.5 mg/dL 01/28/2025 7:01 AM EDT [facility] Albumin, Plasma 3.0(L) 3.5 - 5.2 g/dL 01/28/2025 7:01 AM EDT [facility] eGFRcr 111.4 mL/min/1.7 3m*2 01/28/2025 7:01 AM EDT [facility] Comment:Reported eGFRcr in m L/min/1.73m2 is based the CKD-EPI 2020 equation that does not use a race coefficient. Blood Venous blood specimen / Unknown Venipuncture / Unknown 01/28/2025 6:08 AM EDT 01/28/2025 6:32 AM EDT Jeffery Devine DO LAB BLOOD ORDERABLES Final Re sult [facility] [address] [place] [address] * (ABNORMAL) CBC W/O Differential (01/28/2025 6:08 AM EDT) WBC Count 9.14 3.70 - 10.30 10*3/uL LAB HEMATOLOGY METHOD 01/28/2025 6:44 AM EDT [facility] RBC Count 3.52(L) 3.90 - 5.20 10*6/uL LAB HEMATOLOGY METHOD 01/28/2025 6:44 AM EDT [facility] HGB 10.4(L) 11.2 - 15.7 g/dL LAB HEMATOLOGY METHOD 01/28/2025 6:44 AM EDT [facility] HCT 31.2(L) 34.0 - 45.0 % LAB HEMATOLOGY METHOD 01/28/2025 6:44 AM EDT [facility] Platelet Count 213 155 - 369 10*3/uL LAB HEMATOLOGY METHOD 01/28/2025 6:44 AM EDT [facility] MCV 89 79 - 98 fL LAB HEMATOLOGY METHOD 01/28/2025 6:44 AM EDT [facility] MCH 29.5 26.0 - 32.0 pg LAB HEMATOLOGY METHOD 01/28/2025 6:44 AM EDT [facility] MCHC 33.3 30.7 - 35.5 g/dL LAB HEMATOLOGY METHOD 01/28/2025 6:44 AM EDT [facility] RDW 14.0 11.5 - 14.5 % LAB HEMATOLOGY METHOD 01/28/2025 6:44 AM EDT [facility] MPV 10.8 8.8 - 12.5 fL LAB HEMATOLOGY METHOD 01/28/2025 6:44 AM EDT [facility] [facility] nRBC 0.0 <=0.0 per 100 WBCs LAB HEMATOLOGY METHOD 01/28/2025 6:44 AM EDT [facility] Blood Venous blood specimen / Unknown Venipuncture / Unknown 01/28/2025 6:08 AM EDT 01/28/2025 6:32 AM EDT us Jeffery Devine DO LAB BLOOD ORDERABLES Final Re sult Performing Organization Address [facility] Co de Phone Number [facility] [address] [place] [address] * (ABNORMAL) POCT glucose meter (01/28/2025 5:31 [...] Comment 01/28/2025 5:32 AM EDT [facility] Chronometer Assembler ID MichellekyClementina choudhury 01/28/2025 5:32 AM EDT [facility] Device ID [id number] 01/28/2025 5:32 AM EDT [facility] Specimen Type POC Capillary 01/28/2025 5:32 AM EDT [facility] Blood Capillary blood specimen / Unknown 01/28/2025 5:31 AM EDT 01/28/2025 5:32 AM EDT us Jeffery Devine DO LAB POINT OF CARE TE ST DOCKED DEVICE UNSOLICITED RESULTS Final Result Performing Organization Address [facility] Co de Phone Number [facility] [address] [place] [address] * XR Chest 1 View (01/28/2025 4:42 [...] Detected Not Detected 01/28/2025 12:12 AM EDT [facility] Stool Rectum structure / Unknown Non-blood Collection / Unknown 01/27/2025 10:40 PM EDT 01/27/2025 11:04 PM EDT Narrative [facility] - 01/28/2025 12:12 AM EDT This [...] MICROBIOLOGY - GENERAL OR DERABLES Final Result [facility] [address] [place] [address] * (ABNORMAL) POCT glucose meter (01/27/2025 6:57 [...] Comment 01/27/2025 7:04 PM EDT [facility] Chronometer Assembler ID Flori Bullard 01/27/2025 7:04 PM EDT [facility] Device ID [id number] 01/27/2025 7:04 PM EDT [facility] Specimen Type POC Capillary 01/27/2025 7:04 PM EDT [facility] Blood Capillary blood specimen / Unknown 01/27/2025 6:57 PM EDT 01/27/2025 7:04 PM EDT Jeffery Devine DO LAB POINT OF CARE TE ST DOCKED DEVICE UNSOLICITED RESULTS Final Result Performing Organization Address City/State/[facility] Co de Phone Number [facility] [address] [place] [address] * XR Chest 1 View (01/27/2025 2:17 [...] MD on 01/27/2025 2:26 PM Diamante Weber [employer] SUPPORT SPECIALIST IMG XR PROCEDURES Final Resul t * [...] for testing. Comment 01/27/2025 2:21 PM EDT [facility] Chronometer Assembler ID Flori Bullard 01/27/2025 2:21 PM EDT [facility] Device ID [id number] 01/27/2025 2:21 PM EDT [facility] Specimen Type POC Capillary 01/27/2025 2:21 PM EDT [facility] Blood Capillary blood specimen / Unknown 01/27/2025 1:56 PM EDT 01/27/2025 2:21 PM EDT us Jeffery Devine DO LAB POINT OF CARE TE ST DOCKED DEVICE UNSOLICITED RESULTS Final Result Performing Organization Address City/[facility] Co de Phone Number [facility] [address] [place] [address] * POCT glucose meter (01/27/2025 12:45 PM [...] Comment 01/27/2025 1:02 PM EDT [facility] Chronometer Assembler ID Flori Bullard 01/27/2025 1:02 PM EDT [facility] LAB Device ID [id number] 01/27/2025 1:02 PM EDT [facility] LAB Specimen Type POC Capillary 01/27/2025 1:02 PM EDT [facility] Blood Capillary blood specimen / Unknown 01/27/2025 12:45 PM EDT 01/27/2025 1:02 PM EDT us Jeffery Devine DO LAB POINT OF CARE TE ST DOCKED DEVICE UNSOLICITED RESULTS Final Result Performing Organization Address City/[facility] Co de Phone Number [facility] [address] [place] [address] * CBC W/O Differential (01/27/2025 4:42 AM EDT) WBC Count 9.91 3.70 - 10.30 10*3/uL LAB HEMATOLOGY METHOD 01/27/2025 5:04 AM EDT [facility] RBC Count 4.09 3.90 - 5.20 10*6/uL LAB HEMATOLOGY METHOD 01/27/2025 5:04 AM EDT [facility] HGB 11.9 11.2 - 15.7 g/dL LAB HEMATOLOGY METHOD 01/27/2025 5:04 AM EDT [facility] HCT 37.1 34.0 - 45.0 % LAB HEMATOLOGY METHOD 01/27/2025 5:04 AM EDT [facility] Platelet Count 213 155 - 369 10*3/uL LAB HEMATOLOGY METHOD 01/27/2025 5:04 AM EDT [facility] MCV 91 79 - 98 fL LAB HEMATOLOGY METHOD 01/27/2025 5:04 AM EDT [facility] Comment:Results inconsistent with previous lab findings. MCH 29.1 26.0 - 32.0 pg LAB HEMATOLOGY METHOD 01/27/2025 5:04 AM EDT [facility] MCHC 32.1 30.7 - 35.5 g/dL LAB HEMATOLOGY METHOD 01/27/2025 5:04 AM EDT [facility] RDW 14.1 11.5 - 14.5 % LAB HEMATOLOGY METHOD 01/27/2025 5:04 AM EDT [facility] MPV 10.6 8.8 - 12.5 fL LAB HEMATOLOGY METHOD 01/27/2025 5:04 AM EDT [facility] nRBC 0.0 <=0.0 per 100 WBCs LAB HEMATOLOGY METHOD 01/27/2025 5:04 AM EDT [facility] Blood Venous blood specimen / Unknown Venipuncture / Unknown 01/27/2025 4:42 AM EDT 01/27/2025 4:50 AM EDT us Jeffery Devine DO LAB BLOOD ORDERABLES Final Re sult [facility] [address] [place] [address] * (ABNORMAL) Magnesium, Plasma (01/27/2025 4:40 AM EDT) Magnesium, Plasma 1.8(L) 1.9 - 2.4 mg/dL 01/27/2025 5:19 AM EDT [facility] Blood Venous blood specimen / Unknown Venipuncture / Unknown 01/27/2025 4:40 AM EDT 01/27/2025 4:50 AM EDT us Jeffery Devine DO LAB BLOOD ORDERABLES Final Re sult [facility] [address] [place] [address] * (ABNORMAL) Renal Function Panel, Plasma (01/27/2025 4:40 AM EDT) Glucose, Plasma 124(H) 74 - 99 mg/dL 01/27/2025 5:19 AM EDT [facility] BUN, Plasma 7 7 - 21 mg/dL 01/27/2025 5:19 AM EDT [facility] Creatinine, Plasma 0.71 0.60 - 1.10 mg/dL 01/27/2025 5:19 AM EDT [facility] BUN/Creatinine Ratio 10 01/27/2025 5:19 AM EDT [facility] Sodium, Plasma 139 136 - 145 mmol/L 01/27/2025 5:19 AM EDT [facility] Potassium, Plasma 3.7 3.6 - 4.9 mmol/L 01/27/2025 5:19 AM EDT [facility] Chloride, Plasma 107 97 - 107 mmol/L 01/27/2025 5:19 AM EDT [facility] CO2, Plasma 23 22 - 29 mmol/L 01/27/2025 5:19 AM EDT [facility] Anion Gap 9 6 - 16 mmol/L 01/27/2025 5:19 AM EDT [facility] Total Calcium, Plasma 8.4(L) 8.9 - 10.2 mg/dL 01/27/2025 5:19 AM EDT [facility] Phosphorus, Plasma 3.1 2.5 - 4.5 mg/dL 01/27/2025 5:19 AM EDT [facility] Albumin, Plasma 3.4(L) 3.5 - 5.2 g/dL 01/27/2025 5:19 AM EDT [facility] eGFRcr 102.5 mL/min/1.7 3m*2 01/27/2025 5:19 AM EDT [facility] Comment:Reported eGFRcr in m L/min/1.73m2 is based the CKD-EPI 2020 equation that does not use a race coefficient. Blood Venous blood specimen / Unknown Venipuncture / Unknown 01/27/2025 4:40 AM EDT 01/27/2025 4:50 AM EDT us Jeffery Devine DO LAB BLOOD ORDERABLES Final Re sult [facility] [address] [place] [address] * (ABNORMAL) CBC W/O Differential (01/27/2025 3:28 AM EDT) WBC Count 5.41 3.70 - 10.30 10*3/uL LAB HEMATOLOGY METHOD 01/27/2025 4:01 AM EDT [facility] RBC Count 1.98(L) 3.90 - 5.20 10*6/uL LAB HEMATOLOGY METHOD 01/27/2025 4:01 AM EDT [facility] HGB 5.8(LL) 11.2 - 15.7 g/dL LAB HEMATOLOGY METHOD 01/27/2025 4:01 AM EDT [facility] HCT 21.0(L) 34.0 - 45.0 % LAB HEMATOLOGY METHOD 01/27/2025 4:01 AM EDT [facility] Platelet Count 119(L) 155 - 369 10*3/uL LAB HEMATOLOGY METHOD 01/27/2025 4:01 AM EDT [facility] MCV 106(H) 79 - 98 fL LAB HEMATOLOGY METHOD 01/27/2025 4:01 AM EDT [facility] Comment:Results inconsistent with previous lab findings. MCH 29.3 26.0 - 32.0 pg LAB HEMATOLOGY METHOD 01/27/2025 4:01 AM EDT [facility] MCHC 27.6(L) 30.7 - 35.5 g/dL LAB HEMATOLOGY METHOD 01/27/2025 4:01 AM EDT [facility] RDW 14.9(H) 11.5 - 14.5 % LAB HEMATOLOGY METHOD 01/27/2025 4:01 AM EDT [facility] MPV 10.9 8.8 - 12.5 fL LAB HEMATOLOGY METHOD 01/27/2025 4:01 AM EDT [facility] nRBC 0.0 <=0.0 per 100 WBCs LAB HEMATOLOGY METHOD 01/27/2025 4:01 AM EDT [facility] Blood Venous blood specimen / Unknown Venipuncture / Unknown 01/27/2025 3:28 AM EDT 01/27/2025 3:46 AM EDT us Jeffery Devine DO LAB BLOOD ORDERABLES Final Re sult [facility] [address] [place] [address] * XR Chest 1 View (01/27/2025 3:00 [...] Comment 01/27/2025 1:24 AM EDT [facility] Chronometer Assembler ID Lindsey Baer 01/27/2025 1:24 AM EDT [employer] [facility] Device ID [id number] 01/27/2025 1:24 AM EDT [facility] Specimen Type POC Capillary 01/27/2025 1:24 AM EDT [facility] Blood Capillary blood specimen / Unknown 01/27/2025 1:21 AM EDT 01/27/2025 1:24 AM EDT us Jeffery Devine DO LAB POINT OF CARE TE ST DOCKED DEVICE UNSOLICITED RESULTS Final Result Performing Organization Address City/State/[facility] Co de Phone Number [facility] [address] [place] [address] * POCT glucose meter (01/26/2025 7:23 PM EDT) Pathologist [facility] POCT Glucose 94 74 - 99 mg/dL [...] 01/26/2025 7:25 PM EDT [facility] Chronometer Assembler ID Cecilia Castillo 01/27/20 7:25 PM EDT [facility] Device ID [id number] 01/26/2025 7:25 PM EDT [facility] Specimen Type POC Capillary 01/26/2025 7:25 PM EDT [facility] Blood Capillary blood specimen / Unknown 01/26/2025 7:23 PM EDT 01/26/2025 7:25 PM EDT us Jeffery Devine DO LAB POINT OF CARE TE ST DOCKED DEVICE UNSOLICITED RESULTS Final Result Performing Organization Address City/[facility] Co de Phone Number [facility] [address] [place] [address] * POCT glucose meter (01/26/2025 6:25 AM EDT) [facility] POCT Glucose 97 74 - 99 [...] 01/26/2025 7:37 AM EDT [facility] Chronometer Assembler ID Gracie Edmond 01/26/2025 7:37 AM EDT [facility] Device ID [id number] 01/26/2025 7:37 AM EDT [facility] Specimen Type POC Arterial 01/26/2025 7:37 AM EDT [facility] Blood Arterial blood specimen / Unknown 01/26/2025 6:25 AM EDT 01/26/2025 7:37 AM EDT us Jeffery Devine DO LAB POINT OF CARE TE ST DOCKED DEVICE UNSOLICITED RESULTS Final Result Performing Organization Address City/[facility] Co de Phone Number [facility] [address] [place] [address] * XR Chest 1 View (01/26/2025 2:36 [...] - 2.4 mg/dL 01/26/2025 12:42 AM EDT [facility] Blood Venous blood specimen / Unknown Venipuncture / Unknown 01/26/2025 12:02 AM EDT 01/26/2025 12:06 AM EDT us Jeffery Devine DO LAB BLOOD ORDERABLES Final Re sult [facility] [address] [place] [address] * (ABNORMAL) Renal Function Panel, Plasma (01/26/2025 12:02 AM EDT) Glucose, Plasma 127(H) 74 - 99 mg/dL 01/26/2025 12:42 AM EDT [facility] BUN, Plasma 11 7 - 21 mg/dL 01/26/2025 12:42 AM EDT [facility] Creatinine, Plasma 0.52(L) 0.60 - 1.10 mg/dL 01/26/2025 12:42 AM EDT [facility] BUN/Creatinine Ratio 21 01/26/2025 12:42 AM EDT [facility] Sodium, Plasma 140 136 - 145 mmol/L 01/26/2025 12:42 AM EDT [facility] Potassium, Plasma 4.8 3.6 - 4.9 mmol/L 01/26/2025 12:42 AM EDT [facility] Chloride, Plasma 107 97 - 107 mmol/L 01/26/2025 12:42 AM EDT [facility] CO2, Plasma 22 22 - 29 mmol/L 01/26/2025 12:42 AM EDT [facility] Anion Gap 11 6 - 16 mmol/L 01/26/2025 12:42 AM EDT [facility] Total Calcium, Plasma 8.7(L) 8.9 - 10.2 mg/dL 01/26/2025 12:42 AM EDT [facility] Phosphorus, Plasma 3.5 2.5 - 4.5 mg/dL 01/26/2025 12:42 AM EDT [facility] Albumin, Plasma 3.7 3.5 - 5.2 g/dL 01/26/2025 12:42 AM EDT [facility] eGFRcr 111.9 mL/min/1.7 3m*2 01/26/2025 12:42 AM EDT [facility] Comment:Reported eGFRcr in m L/min/1.73m2 is based the CKD-EPI 2020 equation that does not use a race coefficient. Blood Venous blood specimen / Unknown Venipuncture / Unknown 01/26/2025 12:02 AM EDT 01/26/2025 12:06 AM EDT Jeffery Devine DO LAB BLOOD ORDERABLES Final Re sult [facility] [address] [place] [address] * (ABNORMAL) CBC W/O Differential (01/26/2025 12:02 AM EDT) WBC Count 11.49(H) 3.70 - 10.30 10*3/uL LAB HEMATOLOGY METHOD 01/26/2025 12:23 AM EDT [facility] RBC Count 4.03 3.90 - 5.20 10*6/uL LAB HEMATOLOGY METHOD 01/26/2025 12:23 AM EDT [facility] HGB 11.7 11.2 - 15.7 g/dL LAB HEMATOLOGY METHOD 01/26/2025 12:23 AM EDT [facility] HCT 35.3 34.0 - 45.0 % LAB HEMATOLOGY METHOD 01/26/2025 12:23 AM EDT [facility] Platelet Count 260 155 - 369 10*3/uL LAB HEMATOLOGY METHOD 01/26/2025 12:23 AM EDT [facility] MCV 88 79 - 98 fL LAB HEMATOLOGY METHOD 01/26/2025 12:23 AM EDT [facility] MCH 29.0 26.0 - 32.0 pg LAB HEMATOLOGY METHOD 01/26/2025 12:23 AM EDT [facility] MCHC 33.1 30.7 - 35.5 g/dL LAB HEMATOLOGY METHOD 01/26/2025 12:23 AM EDT [facility] RDW 13.4 11.5 - 14.5 % LAB HEMATOLOGY METHOD 01/26/2025 12:23 AM EDT [facility] MPV 10.7 8.8 - 12.5 fL LAB HEMATOLOGY METHOD 01/26/2025 12:23 AM EDT [facility] nRBC 0.0 <=0.0 per 100 WBCs LAB HEMATOLOGY METHOD 01/26/2025 12:23 AM EDT [facility] Blood Venous blood specimen / Unknown Venipuncture / Unknown 01/26/2025 12:02 AM EDT 01/26/2025 12:06 AM EDT Jeffery Devine DO LAB BLOOD ORDERABLES Final Re sult [facility] [address] [place] [id number] * XR Chest 1 View (01/25/2025 3:17 [...] Detected Not Detected 01/26/2025 10:17 AM EDT [facility] Swab (Axilla and Groin) Non-blood Collection / Unknown 01/25/2025 3:02 PM EDT 01/25/2025 3:42 PM EDT Narrative [facility] - 01/26/2025 10:17 AM EDT This PCR assay was developed and its performance characteristics determined by [facility] as appropriate for clinical purposes. This assay has not been cleared or approved by the FDA, but is performed in a CLIA regulated laboratory that is qualified to perform high-complexity testing. us Jeffery Devine DO LAB MICROBIOLOGY - GENERAL OR DERABLES Final Result Performing Organization Address [facility] Co de Phone Number [facility] [address] [place] [address] * Multi Drug Resistance Test (01/25/2025 3:02 PM EDT) Pathologist [facility] Culture No growth at day 1 01/26/2025 1:57 PM EDT [facility] Swab (Nares and Alexandra Rectal) Non-blood Collection / Unknown 01/25/2025 3:02 PM EDT 01/25/2025 3:42 PM EDT us Jeffery Devine DO LAB MICROBIOLOGY - GENERAL OR DERABLES Final Result Performing Organization Address City/[facility]/ZIP Co de Phone Number [facility] [address] [place] [address] * (ABNORMAL) CBC W/O Differential (01/25/2025 2:59 PM EDT) Pathologist [facility] WBC Count 14.72(H) 3.70 - 10.30 10*3/uL LAB HEMATOLOGY METHOD 01/25/2025 3:33 PM EDT [facility] RBC Count 4.25 3.90 - 5.20 10*6/uL LAB HEMATOLOGY METHOD 01/25/2025 3:33 PM EDT [facility] HGB 12.2 11.2 - 15.7 g/dL LAB HEMATOLOGY METHOD 01/25/2025 3:33 PM EDT [facility] HCT 37.0 34.0 - 45.0 % LAB HEMATOLOGY METHOD 01/25/2025 3:33 PM EDT [facility] Platelet Count 260 155 - 369 10*3/uL LAB HEMATOLOGY METHOD 01/25/2025 3:33 PM EDT [facility] MCV 87 79 - 98 fL LAB HEMATOLOGY METHOD 01/25/2025 3:33 PM EDT [facility] MCH 28.7 26.0 - 32.0 pg LAB HEMATOLOGY METHOD 01/25/2025 3:33 PM EDT [facility] MCHC 33.0 30.7 - 35.5 g/dL LAB HEMATOLOGY METHOD 01/25/2025 3:33 PM EDT [facility] RDW 13.4 11.5 - 14.5 % LAB HEMATOLOGY METHOD 01/25/2025 3:33 PM EDT [facility] MPV 10.5 8.8 - 12.5 fL LAB HEMATOLOGY METHOD 01/25/2025 3:33 PM EDT [facility] nRBC 0.0 <=0.0 per 100 WBCs LAB HEMATOLOGY METHOD 01/25/2025 3:33 PM EDT [facility] Blood Venous blood specimen / Unknown Venipuncture / Unknown 01/25/2025 2:59 PM EDT 01/25/2025 3:24 PM EDT us Diamante Weber APRN LAB BLOOD ORDERABLES Final Re sult [facility] [address] [place] [address] * (ABNORMAL) Blood gas panel, arterial (01/25/2025 2:59 PM EDT) pH, Arterial 7.34(L) 7.35 - 7.45 LAB HEMATOLOGY METHOD 01/25/2025 3:16 PM EDT [facility] pCO2, Arterial 44 35 - 48 mmHg LAB HEMATOLOGY METHOD 01/25/2025 3:16 PM EDT [facility] pO2, Arterial 75(L) 83 - 108 mmHg LAB HEMATOLOGY METHOD 01/25/2025 3:16 PM EDT [facility] SO2, Measured, Arterial 95 94 - 98 % LAB HEMATOLOGY METHOD 01/25/2025 3:16 PM EDT [facility] Base Excess, Arterial -2.1(L) -2.0 - 3.0 mmol/L LAB HEMATOLOGY METHOD 01/25/2025 3:16 PM EDT [facility] Bicarbonate, Calculated, Arterial 24 22 - 26 mmol/L LAB HEMATOLOGY METHOD 01/25/2025 3:16 PM EDT [facility] Hematocrit, Whole Blood 37.3 34.0 - 45.0 % LAB HEMATOLOGY METHOD 01/25/2025 3:16 PM EDT [facility] Sodium, Whole Blood 141 136 - 145 mmol/L LAB HEMATOLOGY METHOD 01/25/2025 3:16 PM EDT [facility] Potassium, Whole Blood 3.7 3.6 - 4.9 mmol/L LAB HEMATOLOGY METHOD 01/25/2025 3:16 PM EDT [facility] Chloride, Whole Blood 108(H) 97 - 107 mmol/L LAB HEMATOLOGY METHOD 01/25/2025 3:16 PM EDT [facility] Glucose, Whole Blood 152(H) 74 - 99 mg/dL LAB HEMATOLOGY METHOD 01/25/2025 3:16 PM EDT [facility] Ionized Calcium, Whole Blood 4.6 4.6 - 5.1 mg/dL LAB HEMATOLOGY METHOD 01/25/2025 3:16 PM EDT [facility] Lactate, Arterial, Whole Blood 2.6(H) 0.5 - 1.6 mmol/L LAB HEMATOLOGY METHOD 01/25/2025 3:16 PM EDT [facility] Blood Arterial blood specimen / Unknown Arterial Puncture / Unknown 01/25/2025 2:59 PM EDT 01/25/2025 3:13 PM EDT us Diamante Weber [employer] SUPPORT SPECIALIST LAB BLOOD ORDERABLES Final Re sult [facility] [address] [place] [address] * Magnesium, Plasma (01/25/2025 2:59 PM EDT) Magnesium, Plasma 1.9 1.9 - 2.4 mg/dL 01/25/2025 4:03 PM EDT [facility] Blood Venous blood specimen / Unknown Venipuncture / Unknown 01/25/2025 2:59 PM EDT 01/25/2025 3:22 PM EDT Diamante Weber WORK STATION SUPPORT SPECIALIST LAB BLOOD ORDERABLES Final Re sult [facility] [address] [place] [address] * (ABNORMAL) Renal Function Panel, Plasma (01/25/2025 2:59 PM EDT) Glucose, Plasma 156(H) 74 - 99 mg/dL 01/25/2025 4:03 PM EDT [facility] BUN, Plasma 15 7 - 21 mg/dL 01/25/2025 4:03 PM EDT [facility] Creatinine, Plasma 0.63 0.60 - 1.10 mg/dL 01/25/2025 4:03 PM EDT [facility] BUN/Creatinine Ratio 24 01/25/2025 4:03 PM EDT [facility] Sodium, Plasma 139 136 - 145 mmol/L 01/25/2025 4:03 PM EDT [facility] Potassium, Plasma 3.8 3.6 - 4.9 mmol/L 01/25/2025 4:03 PM EDT [facility] Chloride, Plasma 104 97 - 107 mmol/L 01/25/2025 4:03 PM EDT [facility] CO2, Plasma 21(L) 22 - 29 mmol/L 01/25/2025 4:03 PM EDT [facility] Anion Gap 14 6 - 16 mmol/L 01/25/2025 4:03 PM EDT [facility] Total Calcium, Plasma 8.7(L) 8.9 - 10.2 mg/dL 01/25/2025 4:03 PM EDT [facility] Phosphorus, Plasma 3.7 2.5 - 4.5 mg/dL 01/25/2025 4:03 PM EDT [facility] Albumin, Plasma 3.8 3.5 - 5.2 g/dL 01/25/2025 4:03 PM EDT [facility] eGFRcr 106.9 mL/min/1.7 3m*2 01/25/2025 4:03 PM EDT [facility] Comment:Reported eGFRcr in m L/min/1.73m2 is based the CKD-EPI 2020 equation that does not use a race coefficient. Blood Venous blood specimen / Unknown Venipuncture / Unknown 01/25/2025 2:59 PM EDT 01/25/2025 3:22 PM EDT us Diamante Weber WORK [employer] SUPPORT SPECIALIST LAB BLOOD ORDERABLES Final Re sult [facility] [address] [place] [address] * Surgical Pathology Exam (01/25/2025 12:18 PM EDT) Case Report Surgical Pathology Case: [id number] Authorizing Provider: Jeffery Devine DO Collected: 01/25/2025 1218 Ordering Location: [facility] A OPERATING ROOM Received: 01/25/2025 1326 Pathologist: Harshil Banks MD Specimens: A) - Esophagus, portion of esophagus fresh for permanent B) - Esophagus, esophagogastric anastomosis fresh for permanent C) - Esophagus, esophagogastrectom y fresh for permanent 12:28 PM EDT [facility] Final Diagnosis A. ESOPHAGUS, EXCISION: - PORTION [...] LYMPH NODES (7) 5 12:28 PM EDT [facility] at 1228 EDT Clinical Information Achalasia 04/2 2/202 5 12:28 PM EDT [facility] Special and Immunohistochemical Stains Special Stain: [id number] Mike Trichrome Stain IHC: There are no tasks to display for the given criteria. All controls show appropriate reactivity. All immunohistochemist ry, in situ hybridization, and histochemical tests were developed by and are performed at the [facility], [address] [place] [address]. All tests reported here, except those addressing [...] on decalcified specimens. 5 12:28 PM EDT [facility] Gross Description A. PORTION OF ESOPHAGUS FRESH FOR PERMANENT The specimens received fresh, placed in formalin labeled p ortion of esophagus and consists of a a 3.5 x 0.3 x 0.2 cm teague-pink segment of stapled esophagus with scantly attached esophageal tissue. The chiqui are excised and commissary representative sections are submitted in cassette A1. [...] to reveal teague-pink, grossly unremarkable mucosal surface. [employer] sections are submitted in cassette B1. Cold [...] grossly identified. Gross photographs have been taken. [employer] sections are submitted as follows: C1: Esophageal [...] 56m Angeles Barreto MD 12:28 PM EDT [facility] Note: A resident was involved in the service. I attest I examined the relevant preparations for the specimens and confirmed the diagnosis or interpretation. 12:28 PM EDT [facility] Tissue Esophageal structure / Unknown 01/25/2025 [...] Performing Organization Address City/[facility]/ZIP Co de Phone Number [facility] [address] [place] [address] * Type and screen (01/25/2025 7:45 AM [...] ORDERABL ES Final Result Performing Organization Address [facility] [[email or web address]] de Phone Number BLOOD BANK [address] [place] [address], documented in this encounter Visit Diagnoses Diagnosis [...] documented as of this encounter Care Teams [employer] Relationship Specialty Start Date End Date Caridad Oliver APRN [address] [place] [address] PCP - General 02/22/21 documented as of this encounter
--- OUTSIDE RECORDS SUMMARY | 2025-02-14 10:45 | XMS_ITS | Encounter Summary ---
Author Organization Healthcare Address [address] [place] [address] Care Team Providers Care Administration Vice President Name Role Phone BenitoCaridad Gaby JIMENES Primary Care Provider [phone] Encounter Details Date Type Department Care Team (Latest Contact Info) Description 02/14/2025 10:45 AM EDT - 02/14/2025 11:59 PM EDT Hospital Encounter [facility] Radiology [address] [place] [address] Achalasia Discharge Disposition: Home or Self Care [...] any time in the past 12 m [facility], were you homeless or living in [...] mL by mouth 2 times a day. 10145 mL 2 02/14/2025 5 Nutritional Supplements (isosource 1.5 Pastor/mL) 55 mL by Per J Tube route every 1 (one) hour. 58815 mL 5 01/19/2025 5 pantoprazole (Protonix) 40 [...] Upcoming Encounters Date Type Department Care Team ([facility] st Contact Info) Description 08/31/2025 8:30 AM EST Appointment [facility] Radiology [address] [place] [address] 08/31/2025 9:30 AM EST Office Visit Pav CC Head, Neck & Respiratory [address] [facility], [address]nd [place] [address] Jeffery Devine, DO [address] [facility] [address] [place] [address] documented as of this encounter Goals Goal [...] documented as of this encounter Care Teams Administration Vice President Relationship Specialty Start Date End Date Caridad Oliver, SEAM FELLER [address] [place] [address] PCP - General 02/22/21 documented as of this encounter
--- OUTSIDE RECORDS SUMMARY | 2025-02-14 11:20 | XMS_ITS | Encounter Summary ---
Author Organization Healthcare Address [address] [place] [address] Care Team Providers Care Folding Machine Setter Name Role Phone BenitoCaridad Gaby JIMENES Primary Care Provider [phone] Reason for Visit * Reason Comments Follow-up Encounter Details Date Type Department Care Team ([facility] Contact Info) Description 02/14/2025 11:20 AM EDT Office Visit Pav CC Head, Neck & Respiratory [address] , [address] [place] [address] Stephanie Ray, PA [address] [place] [address] Achalasia (Primary Dx) Social History Tobacco Use [...] any time in the past 12 m [facility], were you homeless or living in a retirement (including now)? No 01/26/2025 Utilities Answer Date [...] Ray PA - 02/14/2025 11:20 AM EDT [facility] Department of Surgery Section of Thoracic Surgery [...] AM EST Appointment [facility] H Radiology [address] [place] [address] 08/31/2025 9:30 AM EST Office Visit Pav CC Head, Neck & Respiratory [address] [facility], [address]nd [place] [address] Jeffery Devine, DO [address] [facility] [address] [place] [address] documented as of this encounter Goals Goal [...] documented as of this encounter Care Teams Folding Machine Setter Relationship Specialty Start Date End Date Caridad Oliver APRN [address] [place] [address] PCP - General 02/22/21 documented as of this encounter
--- OUTSIDE RECORDS SUMMARY | 2025-02-21 11:15 | XMS_ITS | Encounter Summary ---
Author Organization Healthcare Address [address] [place] [address] Care Team Providers Care Merchandising Stock Associate Name Role Phone BenitoCaridad Gaby JIMENES Primary Care Provider [phone] Reason for Visit * Reason Comments Follow-up Encounter Details Date Type Department Care Team ([facility] Contact Info) Description 02/21/2025 11:15 AM EDT Office Visit [facility] [address] , [address] [place] [address] Stephanie Ray, PA [address] [place] [address] Achalasia (Primary Dx) Social History Tobacco Use [...] any time in the past 12 m [facility], were you homeless or living in a senior living (including now)? No 01/26/2025 Utilities Answer Date [...] from the original note were not included. [facility] Department of Surgery Section of [...] AM EST Appointment PAV H Radiology [address] [place] [address] 08/31/2025 9:30 AM EST Office Visit Pav [facility] Respiratory 800 [facility], [address]nd [place] [address] Jeffery Devine, [address] [address] documented as of this encounter Goals Goal [...] documented as of this encounter Care Teams Merchandising Stock Associate Relationship Specialty Start Date End Date Caridad Oliver APRN [address] [place] [address] PCP - General 02/22/21 documented as of this encounter
--- OUTSIDE RECORDS SUMMARY | 2025-03-02 10:30 | XMS_ITS | Encounter Summary ---
Author Organization Healthcare Address [address] [place] [address] Care Team Providers Care Pickle Cutter Name Role Phone Benito Caridad Gaby JIMENES Primary Care Provider [phone] Reason for Visit * Reason Comments Follow-up Encounter Details Date Type Department Care Team ([facility] st Contact Info) Description 03/02/2025 10:30 AM EDT Office Visit Pav [facility] Head[facility] Neck [facility] Respiratory 800 [facility], [address]nd [place] [address] Jeffery Devine, DO [address] [place] [address] Achalasia (Primary Dx) Social History Tobacco Use [...] any time in the past 12 m [facility], were you homeless or living in a group home (including now)? No 01/26/2025 Utilities Answer [...] the original note were not included. [facility] Department of Surgery Section of [...] Upcoming Encounters Date Type Department Care Team ([facility] st Contact Info) Description 08/31/2025 8:30 AM EST Appointment PAV H Radiology [address] [place] [address] 08/31/2025 9:30 AM EST Office Visit Pav [facility] Head[facility] Neck [facility] Respiratory 800 [facility], [address]nd [place] [address] Jeffery Devine, DO [address] [address] Scheduled Orders Name Type Priority Associated Diagnoses [...] documented as of this encounter Care Teams Pickle Cutter Relationship Specialty Start Date End Date Caridad Oliver APRN [address] [place] [address] PCP - General 02/22/21 documented as of this encounter
--- OUTSIDE RECORDS SUMMARY | 2025-03-02 11:00 | XMS_ITS ---
Author Organization [facility] Address [address] [place] [address] [facility] [address] [place] [address] Care Team Providers Care Early Childhood Special Educator Name Role Phone Margarita Guerra Primary Care Provider [phone] Rogerio Mays [phone] Allergies Allergen (clinical drug ingredient) Drug/Non Drug Allergy documented on EMR Reaction Allergy Type Onset Date Status codeine Codeine Unknown Drug Allergy Active oxycodone oxyCODONE hives Drug Allergy Active REASON FOR VISIT Itchy all over, hives Medications Medication SIG (Take, Route, Frequency, Duration) Notes Start Date End Date Status B-12 2500 MCG 1 tab(s) sublingually once a day for 30 day(s) Active ALBUTEROL (EQV-PROVENTIL HFA) 90 MCG/INH 1 INHALED EVERY 4 HOURS PRN for 30 DAYS *Please review for potential replacement for e-prescription and drug interaction check* 12/25/2022 Active Flonase Allergy Relief 50 MCG/ACT 2 spray(s) intranasally once a day for 30 days 07/13/2021 Active valACYclovir HCl 500 MG 1 tab(s) orally 3 times a day for 5 days prn 10/03/2024 Active Lexapro 10 MG 1 tab(s) orally once a day for 90 days Active Fexofenadine HCl 180 MG 1 tablet Swallow whole with water; do not take with fruit juices. Orally twice a day for 30 days 03/02/2025 Active Benadryl Allergy 25 MG as directed Orally Active hydrOXYzine HCl 25 MG 1 tablet as needed Orally every 8 hours for 30 days 02/08/2025 Active Famotidine 40 MG 1 tablet Orally Once a day for 30 days 02/08/2025 Active predniSONE 20 MG 3 tabs orally once a day for two days, then 2 daily for 2 days, then one daily for two days for 6 day(s) 03/02/2025 Active Vital Signs Temperature 98.4 degrees Fahrenheit 03/02/20 25 Blood pressure systolic 122 mm Hg 03/02/20 25 Blood pressure diastolic 80 mm Hg 025 Heart Rate 82 /min 03/02/2025 Height 63 in 03/02/2025 Weight 158 lbs 03/02/2025 BMI 27.99 kg/m2 03/02/2025 Encounters Encounter Location Date Provider Diagnosis [address] [address] 03/02/2025 Rogerio Mays Urticaria L50.9 Assessments Encounter Date Diagnosis (ICD Code) Assessment Notes Treatment Notes Treatment Clinical Notes Section Notes 03/02/2025 Urticaria (ICD-10 - L50.9) -Approaching chronic urticaria -Most likely etiology looks to be opiates from hx, idiopathic, alternative contact, and other toxin.drugs on ddx but lower -Improved on histamine blockade 2w prior but sx returned after meds ran out, concerned that there may have been insufficient inflammatory control -Restart atarax 25mg q6h PRN, esa fexofenadine BID, famotidine 40mg daily and start a steroid tapering course -Cold showers- fresh sheets, mild soaps -RTC 2 weeks, if symptoms persist through this will order CBC, CMP, ESR, CRP, C3, C4 and consider esl instructor referral Plan Of Treatment Medication Medication Name Sig Start Date Stop Date Notes Fexofenadine HCl 180 MG 1 tablet Swallow whole with water; do not take with fruit juices. Orally twice a day for 30 days 03/02/2025 Cetirizine HCl 10 MG 1 tab(s) orally once a day prn hydrOXYzine HCl 25 MG 1 tablet as needed Orally every 8 hours for 30 days 02/08/2025 Famotidine 40 MG 1 tablet Orally Once a day for 30 days 02/08/2025 predniSONE 20 MG 3 tabs orally once a day for two days, then 2 daily for 2 days, then one daily for two days for 6 day(s) 03/02/2025 Treatment Notes Assessment Notes Urticaria -Approaching chronic urticaria -Most likely etiology looks to be opiates from hx, idiopathic, alternative contact, and other toxin.drugs on ddx but lower -Improved on histamine blockade 2w prior but sx returned after meds ran out, concerned that there may have been insufficient inflammatory control -Restart atarax 25mg q6h PRN, esa fexofenadine BID, famotidine 40mg daily and start a steroid tapering course -Cold showers- fresh sheets, mild soaps -RTC 2 weeks, if symptoms persist through this will order CBC, CMP, ESR, CRP, C3, C4 and consider esl instructor referral Next Appt Details Follow Up: prn, Reason: Progress Notes * Kavita GARCIA LDOB:[birth year] (54 yo F)Acc No.[id number]:03/02/2025 Progress Notes Patient: Sunitha DUMONTKvaita BUNDY Meena Provider: Sunitha Mays MD :1970 A ge:54 Y S ex:Female Date:03/02/2025 Address:[address] [place] [address], [facility], [id number] Pcp:Margarita Guerra Subjective: * Chief Complaints: * 1 . Itchy all over, hives. * HPI: g en: Here for ongoing hives Since last appt: Had hydroxyzine and this helped but this caused a lot of sleepiness 2 weeks ago the hives resolved of their own accord mostly--was still having some symptoms 2 days ago severe symptoms started again--full body other than her face. The distribution is the exact same as prior and once again waking her from sleep. Had chiqui that were removed shortly befor sx improved. R an out of atarax and symptoms returned about 2 weeks later. Mainly intertriginous Had esophagectomy--had itching w/opiates in hospital--took a third dose of oxy at home and the itching flared. Voice is improving since op, no notable angioedema. No weight loss, LAD Notes dermatographia Had anesthesia multiple times in past without incident, drank contrast, had opiates that caused ithcing as above---did not develop symptoms until she left the hospital post-op. No other new contact irritants-no lotions, medicines, no new products. No remaining surgical decices/no stirches, no chiqui, no dermabond in place at this point Has been an atopic person in the past. Seasonal allegies usually well controlled w/Zyrtec (had been off this for awhile prior to this). Out of famotidine and atarax as above. * Medical History: G 2P2, BTL 2001, GERD w/ esophagitis, Depression with anxiety, Esophageal Stricture, Cervical DDD, Elevated LFTs, Uterine fibroids, Seasonal environmental allergies, Endometriosis, Pneumonia 2022, Achalasia. * Medications: T aking Benadryl Allergy 25 MG Tablet as directed Orally , Taking B-12 2500 MCG Tablet 1 tab(s) sublingually once a day , Taking ALBUTEROL (EQV-PROVENTIL HFA) 90 MCG/INH AEROSOL 1 INHALED EVERY 4 HOURS PRN , Notes to Pharmacist: *Please review for potential replacement for e-prescription and drug interaction check*, Taking Flonase Allergy Relief 50 MCG/ACT Suspension 2 spray(s) intranasally once a day , Taking Cetirizine HCl 10 MG Tablet 1 tab(s) orally once a day prn , Taking valACYclovir HCl 500 MG Tablet 1 tab(s) orally 3 times a day , Notes to Pharmacist: prn, Taking Lexapro 10 MG Tablet 1 tab(s) orally once a day , Taking hydrOXYzine HCl 25 MG Tablet 1 tablet as needed Orally every 8 hours , Taking Famotidine 40 MG Tablet 1 tablet Orally Once a day , Medication List reviewed and reconciled with the patient * Allergies: C odeine, oxyCODONE: hives - Allergy. Objective: * Vitals: N urse: dw, Pain: 0, Temp: 98.4, RR: 20, HR: 82, BP: 122/80, Ht: 63, Wt: 158, BMI:27.99. * Examination: G eneral Examination: General U ncomfortable and constantly scratching on exam.? Heart: R egular Rate and Rhythm, no murmur, rubs or gallops. Lungs: L CTAB, No wheezes, crackles or rhonchi, Good air movement,. Skin: w heal and flare on RUE, erythema on the BL UE, most interdigital, secondary scratch whipple noted diffusely. ABdomen /trunk clear of rash. No swelling.? Peripheral pulses: n ormal (2+) bilaterally. ? Assessment: * Assessment: 1. U rticaria - L50.9 (Primary) Plan: * Treatment: * Follow Up: p rn * * Sign off status: Completed true * Provider: Sunitha Mays MD Date: 0 03/02/2025 Generated for Printi ng/Fadeborag/eTransmitting on: 0 03/23/2025 01:38 PM EDT History and Physical Notes * HPI (History of Present Illness) Category Sub-Category Detail Notes Category Not es gen Here for ongoing hives Since last appt: Had hydroxyzine and this helped but this caused a lot of sleepiness 2 weeks ago the hives resolved of their own accord mostly--was still having some symptoms 2 days ago severe symptoms started again--full body other than her face. The distribution is the exact same as prior and once again waking her from sleep. Had chiqui that were removed shortly befor sx improved. Ran out of atarax and symptoms returned about 2 weeks later. Mainly intertriginous Had esophagectomy--had itching w/opiates in hospital--took a third dose of oxy at home and the itching flared. Voice is improving since op, no notable angioedema. No weight loss, LAD Notes dermatographia Had anesthesia multiple times in past without incident, drank contrast, had opiates that caused ithcing as above---did not develop symptoms until she left the hospital post-op. No other new contact irritants-no lotions, medicines, no new products. No remaining surgical decices/no stirches, no chiqui, no dermabond in place at this point Has been an atopic person in the past. Seasonal allegies usually well controlled w/Zyrtec (had been off this for awhile prior to this). Out of famotidine and atarax as above. Examination Category Sub-Category Detail Notes Category Not es General Examination Heart: Regular Rate and Rhythm, no murmur, rubs or gallops Lungs: LCTAB, No wheezes, c rackles or rhonchi, Good air movement, Skin: wheal and flare on R UE, erythema on the BL UE, most interdigital, secondary scratch whipple noted diffusely. ABdomen /trunk clear of rash. No swelling Peripheral pulses: normal (2+) bilatera lly General Uncomfortable and co nstantly scratching on exam
--- OUTSIDE RECORDS SUMMARY | 2025-03-16 08:13 | XMS_ITS ---
Author Organization Tyrel Mejía PE D SIMA Address [address] [facility] [address] [place] [address] Care Team Providers Care Nurse Esthetician Name Role Phone Margarita Guerra Primary Care Provider REASON FOR VISIT lab order Encounters Encounter Location Date Provider Diagnosis Tyrel PEPPER [facility]ED [facility]A [address] [facility] [address] [place] [address] 03/16/2025 Margarita Guerra Visit for screening mammogram Z12.31 Assessments Encounter Date Diagnosis (ICD Code) Assessment Notes Treatment Notes Treatment Clinical Notes Section Notes 03/16/2025 Visit for screening mammogram (ICD-10 - Z12.31) Plan Of Treatment Pending Test Test Name Order Date Mammogram : Bilateral 03/16/2025 Progress Notes * Kavita GARCIA LDOB:[birth year] (54 yo F)Acc No.[id number]:03/16/2025 Patient: Kavita BURNETT :1970 A ge:54 Y S ex:Female Address:[address] [place] [address] LOWELL, [place] AGUERO [address] Subjective: * Chief Complaints: * L ab order * Medical History: * Surgical History: * Hospitalization/Major Diagno stic Procedure: * Medications: Objective: * Vitals: * Physical Examination: Assessment: * Assessment: 1. V isit for screening mammogram - Z12.31 Plan: * Treatment: * Procedure Codes: * true * Date: Generated for Kaushik gray/Earle/Jong on: 0 03/23/2025 01:38 PM EDT
--- OUTSIDE RECORDS SUMMARY | 2025-03-16 08:21 | XMS_ITS ---
Author Organization Tyrel Mejía IM PE D SIMA Address [address] [facility] 36 [facility] [address] [place] [address] Care Team Providers Care Production Lead Name Role Phone Margarita Guerra Primary Care Provider REASON FOR VISIT lab work Encounters Encounter Location Date Provider Diagnosis Tyrel Mejía IM [facility] [address] [facility] [address] [place] [address] 03/16/2025 Margarita Guerra Chronic urticaria L50.8 Assessments Encounter Date Diagnosis (ICD Code) Assessment Notes Treatment Notes Treatment Clinical Notes Section Notes 03/16/2025 Chronic urticaria (ICD-10 - L50.8) Plan Of Treatment Pending Test Test Name Order Date COMP METABOLIC PANEL 03/16/2025 C-REACTIVE PROTEIN 03/16/2025 CBC AUTO W DIFF 03/16/2025 SEDIMENTATION RATE 03/16/2025 MOHIT COMPREHENSIVE PLUS PROFILE COMPLEMENT TOTAL (CH50) 03/16/2025 COMPLEMENT C3 03/16/2025 COMPLEMENT C4 03/16/2025 Progress Notes * Kavita GARCIA LDOB:[birth year] (54 yo F)Acc No.[id number]:03/16/2025 Patient: Kavita BURNETT :1970 A ge:54 Y S ex:Female Address:[address] [place] [address] LOWELL, Gaby [place] [address] Subjective: * Chief Complaints: * L ab work * Medical History: * Surgical History: * Hospitalization/Major Diagno stic Procedure: * Medications: Objective: * Vitals: * Physical Examination: Assessment: * Assessment: 1. C hronic urticaria - L50.8 (Primary) Plan: * Treatment: * Procedure Codes: * true * Date: Generated for Kaushik gray/Earle/Jong on: 0 03/23/2025 01:37 PM EDT
[2025-03-23 13:21] LABS: Basophils # 0.1 K/mm3 (0-0.2); Basophils % 1.3 % (0.1-2.0); Eosinophils # 0.1 Kmm3 (0.0-0.4); Eosinophils % 2.6 % (0.1-12.0); Hematocrit 40.9 % (37.0-47.0); Hemoglobin 13.6 g/dL (12.2-16.2); Immature Granulocytes # 0.01 10^3uL; Immature Granulocytes % 0.3 %; Lymphocytes # 1.6 K/mm3 (0.7-4.5); Lymphocytes % 40.8 % (10-50); Mean Corpuscular HGB Conc 33.3 g/dL (31.8-35.4); Mean Corpuscular Hemoglobin 28.8 pg (27.0-31.2); Mean Corpuscular Volume 86.7 fl (81-99); Mean Platelet Volume 10.9 fl (7.4-10.4); Monocytes # 0.3 K/mm3 (0.1-1.0); Monocytes % 7.7 % (1.7-9.3); Neutrophils # 1.9 K/mm3 (1.8-7.8); Neutrophils % 47.3 % (37.0-80.0); Nucleated Red Blood Cells # 0 10^3/uL; Nucleated Red Blood Cells % 0 %; Platelet Count 244 K/mm3 (142-424); Red Blood Count 4.72 M/mm3 (4.20-5.40); Red Cell Distribution Width 13.9 % (11.5-17.5); Red Cell Distribution Width-SD 43.8 fL; White Blood Count 3.9 K/mm3 (4.8-10.8)
--- OUTSIDE RECORDS SUMMARY | 2025-03-23 13:38 | XMS_ITS | Encounter Summary ---
Author Organization Healthcare Address [address] [place] [address] Care Team Providers Care Curriculum Facilitator Name Role Phone Benito Caridad Gaby JIMENES Primary Care Provider [phone] Encounter Details Date Type Department Care Team ([facility] st Contact Info) Description 02/20/2025 Telephone Pav CC Head, Neck & Respiratory 800 [facility], 2nd [place] [address] Jeffery Devine, DO [address] [facility] 1[address] [place] [address] Social History Tobacco Use Types Packs/Day Years [...] the past 12 months has th e epicurio, gas, oil, or water company threatened to [...] and optimal time of day to reach caller:[phone] Note: Please do not reply to this [...] AM EST Appointment P[facility] H Radiology [address] [place] [address] 08/31/2025 9:30 AM EST Office Visit Pav CC Head, Neck & Respiratory [address] [facility], [address]nd [place] [address] Jeffery Devine, DO [address] [facility] 1[address] [place] [address] documented as of this encounter Goals Goal [...] documented as of this encounter Care Teams Curriculum Facilitator Relationship Specialty Start Date End Date Caridad Oliver APRN [address] [place] [address] PCP - General 02/22/21 documented as of this encounter
--- OUTSIDE RECORDS SUMMARY | 2025-03-23 13:38 | XMS_ITS | Encounter Summary ---
Author Organization Healthcare Address [address] [place] [address] Care Team Providers Care Didactic Instructor Name Role Phone BenitoCaridad Gaby JIMENES Primary Care Provider [phone] Encounter Details Date Type Department Care Team [...] any time in the past 12 m [facility], were you homeless or living [...] EST Appointment P[facility] H Radiology [address] [place] [address] 08/31/2025 9:30 AM EST Office Visit Pav CC Head, Neck & Respiratory 800 [facility], [address]nd [place] [address] Jeffery Devine, DO 800 [facility] [address] [place] [address] documented as of this encounter Goals Goal [...] documented as of this encounter Care Teams Didactic Instructor Relationship Specialty Start Date End Date Caridad Oliver APRN [address] [place] [address] PCP - General 02/22/21 documented as of this encounter
--- OUTSIDE RECORDS SUMMARY | 2025-03-23 13:38 | XMS_ITS | Encounter Summary ---
Author Organization Healthcare Address [address] [place] [address] Care Team Providers Care Fruit Harvest Machine Operator Name Role Phone BenitoCaridad Gaby JIMENES Primary Care Provider [phone] Encounter Details Date Type Department Care Team ([facility] st Contact Info) Description 02/23/2025 Telephone Pav CC Head, Neck & Respiratory [address] , [address] [place] [address] Ivett Navarrete RN Social History Tobacco Use [...] any time in the past 12 m [facility], were you homeless or living in a long-term (including now)? No 01/26/2025 Utilities Answer Date [...] Info) Description 08/31/2025 8:30 AM EST Appointment [facility] Radiology [address] [place] [address] 08/31/2025 9:30 AM EST Office Visit Pav CC Head, Neck & Respiratory [address] , [address] [place] [address] Jeffery Devine, DO [address] [place] [address] documented as of this encounter Goals Goal [...] documented as of this encounter Care Teams Fruit Harvest Machine Operator Relationship Specialty Start Date End Date Caridad Oliver APRN [address] [place] [address] PCP - General 02/22/21 documented as of this encounter
--- OUTSIDE RECORDS SUMMARY | 2025-03-23 13:38 | XMS_ITS | Encounter Summary ---
Author Organization Healthcare Address [address] [place] [address] Care Team Providers Care Wet Roller Name Role Phone BenitoCaridad Gaby JIMENES Primary Care Provider [phone] Encounter Details Date Type Department Care Team [...] AM EST Appointment [facility] H Radiology [address] [place] [address] 08/31/2025 9:30 AM EST Office Visit Pav CC Head, Neck & Respiratory 800 [facility], [address] [place] [address] Jeffery Devine, DO [address] [facility] [address] [place] [address] documented as of this encounter Goals Goal [...] documented as of this encounter Care Teams Wet Roller Relationship Specialty Start Date End Date Caridad Oliver APRN [address] [place] [address] PCP - General 02/22/21 documented as of this encounter
--- OUTSIDE RECORDS SUMMARY | 2025-03-23 13:38 | XMS_ITS | Encounter Summary ---
Author Organization Healthcare Address [address] [place] [address] Care Team Providers Care Batch Freezer Name Role Phone BenitoCaridad Gaby JIMENES Primary Care Provider [phone] Encounter Details Date Type Department Care Team [...] time in the past 12 m [facility], were you homeless or living [...] AM EST Appointment [facility] H Radiology [address] [place] [address] 08/31/2025 9:30 AM EST Office Visit Pav CC Head, Neck & Respiratory [address] [facility], 2nd [place] [address] Jeffery Devine, DO [address] [facility] 1[address] [place] [address] documented as of this encounter Goals Goal [...] documented as of this encounter Care Teams Batch Freezer Relationship Specialty Start Date End Date Caridad Oliver APRN [address] [place] [address] PCP - General 02/22/21 documented as of this encounter
--- OUTSIDE RECORDS SUMMARY | 2025-03-23 13:38 | XMS_ITS | Encounter Summary ---
Author Organization Healthcare Address [address] [place] [address] Care Team Providers Care Consumer Sales Representative Name Role Phone BenitoCaridad Gaby JIMENES Primary Care Provider [phone] Encounter Details Date Type Department Care Team ([facility] st Contact Info) Description 02/14/2025 Nutrition Pav CC Head, Neck & Respiratory [address] , [address] [place] [address] Stephy Devine, LOWELL Social History Tobacco Use [...] time in the past 12 m [facility], were you homeless or living in a [...] NUTRITION NOTE Patient Information Name: Kavita Rivera [id number] : 1970 Date of Service: 02/14/2025 Visit Type: Nutrition consult Referral source: [facility] Kavita Rivera is a 54 y.o. female who was referred to [facility] dietitian for oncology nutritioncounseling. Diagnosis Cancer Staging [...] Patient referred to [facility] by [facility] Dietitian. RD contact information was provided and pt was encouraged to contact with additional nutrition-related questions/concerns PRN. documented in this encounter Plan of Treatment Upcoming Encounters Date Type Department Care Team ([facility] st Contact Info) Description 08/31/2025 8:30 AM EST Appointment [facility] H Radiology [address] [place] [address] 08/31/2025 9:30 AM EST Office Visit Pav CC Head, Neck & Respiratory 800 [facility], 2nd [place] [address] Jeffery Devine, DO 800 [facility] [address] [place] [address] documented as of this encounter Goals Goal [...] documented as of this encounter Care Teams Consumer Sales Representative Relationship Specialty Start Date End Date Caridad Oliver APRN [address] [place], [place] [address] PCP - General 02/22/21 documented as of this encounter
--- OUTSIDE RECORDS SUMMARY | 2025-03-23 13:38 | XMS_ITS | Encounter Summary ---
Author Organization Healthcare Address [address] [place] [address] Care Team Providers Care Button Buttonhole Marker Name Role Phone BenitoCaridad Gaby JIMENES Primary Care Provider [phone] Encounter Details Date Type Department Care Team (Late st Contact Info) Description 03/17/2025 Telephone Pav CC Head, Neck & Respiratory [address] , [address] [place] [address] Corie West RN AMB-HEAD NECK AND RESPIRATORY [...] any time in the past 12 m [facility], were you homeless or [...] Telephone Encounter - Corie West RN - 03/17/2025 1:07 PM EDT RN [...] AM EST Appointment [facility] H Radiology [address] [place] [address] 08/31/2025 9:30 AM EST Office Visit Pav CC Head, Neck & Respiratory 800 [facility], [address]nd [place] [address] Jeffery Devine, DO 800 [facility] [address] [place] [address] documented as of this encounter Goals Goal [...] documented as of this encounter Care Teams Button Buttonhole Marker Relationship Specialty Start Date End Date Caridad Oliver APRN [address] [place] [address] PCP - General 02/22/21 documented as of this encounter
--- OUTSIDE RECORDS SUMMARY | 2025-03-23 13:39 | XMS_ITS | Encounter Summary ---
Author Organization Healthcare Address [address] [place] [address] Care Team Providers Care Director Sales And Marketing Name Role Phone BenitoCaridad Gaby JIMENES Primary Care Provider [phone] Encounter Details Date Type Department Care Team [...] were you homeless or living in a long term (including now)? No 01/26/2025 Utilities Answer Date [...] AM EST Appointment [facility] H Radiology [address] [place] [address] 08/31/2025 9:30 AM EST Office Visit Pav CC Head, Neck & Respiratory 800 [facility], 2nd [place] [address] Jeffery Devine, DO 800 [facility] 1[address] [place] [address] documented as of this encounter Goals Goal [...] as of this encounter Care Teams Director Sales And Marketing Relationship Specialty Start Date End Date Caridad Oliver APRN [address] [place] [address] PCP - General 02/22/21 documented as of this encounter
--- OUTSIDE RECORDS SUMMARY | 2025-03-23 13:39 | XMS_ITS | Encounter Summary ---
Author Organization Healthcare Address [address] [place] [address] Care Team Providers Care Composite Boat Builder Name Role Phone BenitoCaridad Gaby JIMENES Primary Care Provider [phone] Encounter Details Date Type Department Care Team [...] AM EST Appointment [facility] H Radiology [address] [place] [address] 08/31/2025 9:30 AM EST Office Visit Pav CC Head, Neck & Respiratory 800 [facility], [address]nd [place] [address] Jeffery Devine, DO 800 [facility] [address] [place] [address] documented as of this encounter Goals Goal [...] documented as of this encounter Care Teams Composite Boat Builder Relationship Specialty Start Date End Date Caridad Oliver APRN [address] [place] [address] PCP - General 02/22/21 documented as of this encounter
--- OUTSIDE RECORDS SUMMARY | 2025-03-23 13:39 | XMS_ITS | Encounter Summary ---
Author Organization Healthcare Address [address] [place] [address] Care Team Providers Care Wet End Helper Name Role Phone BenitoCaridad Gaby JIMENES Primary Care Provider [phone] Encounter Details Date Type Department Care Team [...] any time in the past 12 m [facility], were you homeless or [...] AM EST Appointment [facility] H Radiology [address] [place] [address] 08/31/2025 9:30 AM EST Office Visit Pav CC Head, Neck & Respiratory 800 [facility], 2nd [place] [address] Jeffery Devine, DO 800 [facility] 1[address] [place] [address] documented as of this encounter Goals Goal [...] as of this encounter Care Teams Wet End Helper Relationship Specialty Start Date End Date Caridad Oliver APRN [address] [place] [address] PCP - General 02/22/21 documented as of this encounter
--- OUTSIDE RECORDS SUMMARY | 2025-03-23 13:39 | XMS_ITS | Patient Health Record ---
Author Organization [facility] Address [address] [place] [address] Care Team Providers Care Regional Vice President Life Sales Name Role Phone Mari Margarita Primary Care Provider [phone] Rogerio Mays Unavailable [phone] Leonora Hansen Unavailable [phone] Migration, Provider Unavailable Unavailable Allergies Allergen (clinical drug ingredient) Drug/Non Drug Allergy documented on EMR Reaction Allergy Type Onset Date Status codeine Codeine Unknown Drug Allergy Active oxycodone oxyCODONE hives Drug Allergy Active Results Component Value Reference Range Notes M-Complete Blood Count Auto Diff (Not yet reviewed by provider) Interpretation: Performing Lab: Notes/Report: WBC 3.9 4.8-10.8 K/mm3 RBC 4.72 4.20-5.40 M/mm3 HGB 13.6 12.2-16.2 g/dL HCT 40.9 37.0-47.0 % MCV 86.7 81-99 fl MCH 28.8 27.0-31.2 pg MCHC 33.3 31.8-35.4 g/dL RDW 13.9 11.5-17.5 % PLT 244 142-424 K/mm3 MPV 10.9 7.4-10.4 fl NE% 47.3 37.0-80.0 % LY% 40.8 10-50 % MO% 7.7 1.7-9.3 % EO% 2.6 0.1-12.0 % BA% 1.3 0.1-2.0 % NE# 1.9 1.8-7.8 K/mm3 LY# 1.6 0.7-4.5 K/mm3 MO# 0.3 0.1-1.0 K/mm3 EO# 0.1 0.0-0.4 Kmm3 BA# 0.1 0-0.2 K/mm3 RDW-SD 43.8 NRBC% 0 IG% 0.3 NRBC# 0 IG# 0.01 Rapid Covid/Flu A-B Combo Reviewed date:01/03/2025 01:33:10 PM Interpretation: Performing Lab: Notes/Report: Rapid Covid neg Flu A neg Flu B neg X ray : Chest Reviewed date:01/05/2025 02:31:14 PM Interpretation: Performing Lab: Notes/Report: Rapid Covid/Flu A-B Combo Reviewed date:10/03/2024 06:22:04 PM Interpretation: Performing Lab: Notes/Report: Rapid Covid neg Flu A pos Flu B neg X ray : KUB Reviewed date:02/14/2025 03:55:01 PM Interpretation: Performing Lab: Notes/Report: X ray : KUB Reviewed date:02/14/2025 03:55:01 PM Interpretation: Performing Lab: Notes/Report: M-BUN & Creatinine Reviewed date:02/13/2025 09:36:29 AM Interpretation: Performing Lab: Notes/Report: BUN 21 7-17 mg/dl CREATT 0.70 0.52-1.04 mg/dl GFRAA 106 >60 ML/MIN EGFR 88 >60 ml/min Rapid Covid/Flu A-B Combo Reviewed date:09/13/2024 09:21:23 PM Interpretation: Performing Lab: Notes/Report: Rapid Covid neg Flu A neg Flu B neg X ray : Chest Reviewed date:10/17/2024 11:58:56 AM Interpretation: Performing Lab: Notes/Report: M-Complete Blood Count Auto Diff Reviewed date:10/14/2024 [...] Performing Lab: Notes/Report: MG 2.2 1.6-2.3 mg/dl Rapid Covid/Flu A-B Combo Reviewed date:11/25/2024 03:27:14 PM Interpretation: Performing Lab: Notes/Report: Rapid Covid neg Flu A neg Flu B neg Rapid Covid/Flu A-B Combo Reviewed date:07/29/2024 01:19:43 PM Interpretation: Performing Lab: Notes/Report: Rapid Covid neg Flu A neg Flu B neg Medications Medication SIG (Take, Route, Frequency, Duration) [...] Problem Status W/U Status Risk Notes Problem 778632860151060 Unilateral prima ry osteoarthritis, left knee (M17.12) Active confirmed Problem 20239879 Anxiety (F41.9) Active confirmed Problem 291133313 Hypertriglycerid emia (E78.1) Active confirmed Problem 629794595 GERD without esophagitis (K21.9) Active confirmed Problem 511292969 Seasonal allergi es (J30.2) Active confirmed Problem 466231595 GERD with esopha gitis (K21.0) Active confirmed Problem 249432300 Morbid obesity d ue to excess calories (E66.01) Active confirmed Problem 397223343 Chronic insomnia (F51.04) Active confirmed Problem 5694731 Fever blister (B00.1) Active confirmed Problem 97558082 Dysthymia (F34.1) Active confirmed Problem 731304258 Rosacea (L71.9) Active confirmed Problem 801779487 Endometriosis (N80.9) Active confirme d Problem 803754843 Acute left-sided low back pain with left-sided sciatica (M54.42) Active confirmed Problem 4159432 Tonsillith (J35.8) Active confirmed Problem 495169212 MRSA (methicilli n resistant Staphylococcus aureus) (A49.02) Active confirmed Problem 31538187082274150 Carpal tunnel syndrome on both sides (G56.03) Active confirmed Problem 613305388 Surgical menopau se (E89.40) Active confirmed Problem 20149409895265100 Carpal tunnel syndrome, bilateral (G56.03) Active confirmed Problem 26409148 Esophageal dysph agia (R13.10) Active confirmed Problem 37761659 Acute allergic rhinitis (J30.9) Active confirmed Problem 345927770 S/P percutaneous endoscopic gastrostomy (PEG) tube placement (Z93.1) Active confirmed Problem 76598855 Achalasia (K22.0) Active confirmed Problem 836543985803414 Class 1 obesity (E66.9) Active confirmed Problem 4496300 Spondylosis (M47.9) Active confirmed Problem 140423568 Jejunostomy tube present (Z93.4) Active confirmed Problem 183215088 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) Active confirmed Vital Signs Heart Rate 82 /min 03/02/2025 Temperature 98.4 degrees Fahrenheit 03/02/2025 Blood pressure diastolic 80 mm Hg 03/02/2025 Height 63 in 03/02/2025 Blood pressure systolic 122 mm Hg 03/02/2025 Weight 158 lbs 03/02/2025 BMI 27.99 kg/m2 03/02/2025 Encounters Encounter Location Date Provider Diagnosis [facility] [address] [place] [address] 01/14/2025 Provider Migration [facility] [address] [facility] [address] [place] [address] 06/23/2024 Rogerio Mays Allergic conjunctivitis, bilateral H10.13 [facility] [address] [place] [address] 07/29/2024 Margarita McNees Cough R05.9 and Viral URI J06.9 [facility] [address] [place] [address] 08/13/2024 Margarita McJesses COVID-19 U07.1 [facility] [address] [place] [address] 09/13/2024 Rogerio Tabatha Acute cough R05.1 and Acute non-recurrent maxillary sinusitis J01.00 [facility] [address] [place] [address] 10/03/2024 Leonora Jade Fever in adult R50.9 ; Influenza A J10.1 and Fever blister B00.1 [facility] [address] [place] [address] 10/14/2024 Rogerio Mays Subacute cough R05.2 ; Acute febrile illness R50.9 ; Other malaise R53.81 and Other fatigue R53.83 [facility] [address] [place] [address] 11/25/2024 Margarita McNees Subacute cough R05.2 and Viral URI J06.9 [facility] [address] [place] [address] 12/05/2024 Leonora Jade Acute non-recurrent maxillary sinusitis J01.00 ; Persistent cough R05.3 and Achalasia K22.0 [facility] [address] [place] [address] 01/03/2025 Leonora Jade Acute cough R05.1 and History of pulmonary aspiration Z87.09 [facility] [address] [place] [address] 02/08/2025 Leonora Jade Urticaria L50.9 [facility] [address] [place] [address] 02/11/2025 Margarita McNees Jejunostomy tube present Z93.4 [facility] [address] [place] [address] 03/02/2025 Rogerio Tabatha Urticaria L50.9 [facility] [address] [place] [address] 08/02/2024 Margarita Guerra Screening mammogram for breast cancer Z12.31 [facility] [address] [place] [address] 08/02/2024 Margarita McNees [facility] [address] [place] [address] 08/19/2024 Margarita McNees [facility] [address] [place] [address] 09/27/2024 Rogerio Besson [facility] [address] [place] [address] 10/17/2024 Rogerio Mays Shortness of breath R06.02 and Cough in adult R05.9 [facility] [address] [place] [address] 12/28/2024 Margarita Guerra Fever blister B00.1 [facility] [address] [place] [address] 01/03/2025 Leonora Hansen [facility] [address] [place] [address] 03/16/2025 Margarita Guerra Visit for screening mammogram Z12.31 [facility] [address] [facility] [address] [place] [address] 03/16/2025 Margarita Guerra Chronic urticaria L50.8 Assessments [...] susceptible individuals. School and work note provided. 10/14/2024 Acute febrile illness (ICD-10 - R50.9) [...] Acute non-recurrent maxillary sinusitis (ICD-10 - J01.00) 12/05/2024 Persistent cough (ICD-10 - R05.3) likely r/t chronic aspiration/achala vinod, surgery is scheduled at as noted. return precautions reviewed 12/28/2024 Fever blister (ICD-10 - B00.1) 01/03/2025 Acute cough (ICD-10 - R05.1) 01/03/2025 [...] CMP, ESR, CRP, C3, C4 and consider comptometer operator referral 03/16/2025 Visit for screening mammogram (ICD-10 - Z12.31) 03/16/2025 Chronic urticaria (ICD-10 - L50.8) 10/03/2024 Fever in adult (ICD-10 - R50.9) 10/14/2024 Other malaise (ICD-10 - R53.81) 12/05/2024 Achalasia (ICD-10 - K22.0) 10/03/2024 Fever blister (ICD-10 - B00.1) 10/14/2024 [...] 2024 M-Complete Blood Count Auto Diff 020 M-Complete Blood Count Auto Diff 025 M-Comprehensive Metabolic Panel 05/21/20 20 M-Vitamin B12 [...] Insured Coverage Start Date Coverage End Date [facility] [id number] [place] [address] [id number] Kavita Rivera Self - patient is the [...] Injection 05/02/2022 4 mg Dexamethasone 4mg Injection 08/11/2022 4 mg Dexamethasone 4mg Injection 12/23/2022 4 mg Dexamethasone 4mg Injection 08/21/2023 4 mg Dexamethasone 4mg Injection 11/23/2023 4 mg Dexamethasone 4mg Injection 07/29/2024 4 mg Dexamethasone 4mg Injection 08/13/2024 4 mg Dexamethasone 4mg Injection 09/13/2024 4 mg Dexamethasone 4mg Injection 11/25/2024 4 mg Dexamethasone 4mg Injection 02/08/2025 4 mg Kenalog 40mg 03/10/2018 40 mg Triamcinolone Acetonide 40mg Injection 05/21/2018 1 mL Triamcinolone Acetonide 40mg Injection 08/24/2018 1 mL Triamcinolone Acetonide 40mg Injection 09/17/2018 1 mL Triamcinolone Acetonide 40mg Injection 01/06/2019 1 mL Triamcinolone Acetonide 40mg Injection 08/18/2020 1 mL Triamcinolone Acetonide 40mg Injection 04/08/2021 1 mL Kenalog 01/01/2015 1 Medical (General) History Medical History History ICD [...]
--- OUTSIDE RECORDS SUMMARY | 2025-03-23 13:39 | XMS_ITS | Encounter Summary ---
Author Organization [facility] Address [address] [place] [address] Care Team Providers Care Middle School Baseball Coach Name Role Phone BenitoCaridad Gaby JIMENES Primary Care Provider [phone] Encounter Details Date Type Department Care Team [...] AM EST Appointment [facility] Radiology [address] [place] [address] 08/31/2025 9:30 AM EST Office Visit [facility] 800 [facility], 2nd [place] [address] Jeffery Devine, DO 800 [facility] 1st [place] [address] documented as of this encounter Goals Goal [...] documented as of this encounter Care Teams Middle School Baseball Coach Relationship Specialty Start Date End Date Caridad Oliver APRN [address] [place] [address] PCP - General 02/22/21 documented as of this encounter
--- OUTSIDE RECORDS SUMMARY | 2025-03-23 13:40 | XMS_ITS | Encounter Summary ---
Author Organization [facility] Address [address] [place] [address] Care Team Providers Care Housekeeping/Laundry Supervisor Name Role Phone BenitoCaridad Gaby JIMENES Primary Care Provider [phone] Encounter Details Date Type Department Care Team [...] time in the past 12 m [facility], were you homeless or living in a [...] AM EST Appointment [facility] Radiology [address] [place] [address] 08/31/2025 9:30 AM EST Office Visit [facility] Res[facility] 800 [facility], 2nd [place] [address] Jeffery Devine, DO 800 [facility] [address] [place] [address] documented as of this encounter Goals Goal [...] documented as of this encounter Care Teams Housekeeping/Laundry Supervisor Relationship Specialty Start Date End Date Caridad Oliver APRN [address] [place] [address] PCP - General 02/22/21 documented as of this encounter
--- OUTSIDE RECORDS SUMMARY | 2025-03-23 13:40 | XMS_ITS | Encounter Summary ---
Author Organization [facility] Address [address] [place] [address] Care Team Providers Care It Associate Name Role Phone Benito Caridad Gaby JIMENES Primary Care Provider [phone] Encounter Details Date Type Department Care Team ([facility] [place] st Contact Info) Description 02/14/2025 Telephone [facility] Head[facility] Neck [facility] Respiratory 800 [facility], 2nd [place] [address] Jeffery Devine, DO 800 [facility] 1[address] [place] [address] Social History Tobacco Use Types Packs/Day Years [...] in the past 12 m [facility], were you homeless or living in [...] optimal time of day to reach caller: [phone] Note: Please do not reply to this message. Follow-up communication and further actions as a result of this message need to be communicated with the patient directly, if the patient is not active onMyChart. If the patient is active on MyChart, they will receive notification of the communication/outcome via [employer] [facility] [employer]. documented in this encounter Plan of Treatment Upcoming Encounters Date Type Department Care Team ([facility] [place] st Contact Info) Description 08/31/2025 8:30 AM EST Appointment [facility] Radiology [address] [place] [address] 08/31/2025 9:30 AM EST Office Visit [facility] Res[facility] 800 [facility], 2nd [place] [address] Jeffery Devine, DO 800 [facility] [address] [place] [address] documented as of this encounter Goals Goal [...] documented as of this encounter Care Teams It Associate Relationship Specialty Start Date End Date Caridad Oliver, ARTIFICIAL FLY TIER [address] [place] [address] PCP - General 02/22/21 documented as of this encounter
--- OUTSIDE RECORDS SUMMARY | 2025-03-23 13:40 | XMS_ITS | Encounter Summary ---
Author Organization Healthcare Address [address] [place] [address] Care Team Providers Care Manager Business Banking Name Role Phone Benito Caridad Gaby JIMENES Primary Care Provider [phone] Encounter Details Date Type Department Care Team ([facility] st Contact Info) Description 02/03/2025 Telephone [facility] A Inpatient [address] [place] [address] Kera Garcia CV TELE-PROGRESSIVE Social History Tobacco [...] were you homeless or living in a assisted (including now)? No 01/26/2025 Utilities Answer Date [...] AM EST Appointment [facility] Rad[facility] [address] [place] [address] 08/31/2025 9:30 AM EST Office Visit [facility] Res[facility] 800 [facility], 2nd [place] [address] Jeffery Devine, DO [address] [address] documented as of this encounter Goals Goal [...] documented as of this encounter Care Teams Manager Business Banking Relationship Specialty Start Date End Date Caridad Oliver APRN [address] [place] [address] PCP - General 02/22/21 documented as of this encounter
--- OUTSIDE RECORDS SUMMARY | 2025-03-23 13:40 | XMS_ITS | Encounter Summary ---
Author Organization Healthcare Address [address] [place] [address] Care Team Providers Care Converter Supervisor Name Role Phone BenitoCaridad Gaby JIMENES Primary Care Provider [phone] Reason for Visit * Reason Onset Date Comments Med Refill 02/06/2025 Encounter Details Date Type Department Care Team (Late st Contact Info) Description 02/06/2025 Refill [facility] Head[facility] Ne[facility] Respiratory 800 [facility], 2nd [place] [address] Jeffery Devine, DO 800 [facility] [address] [place] [address] Social History Tobacco Use Types Packs/Day Years [...] in the past 12 m [facility], were you homeless or living in a [...] AM EST Appointment [facility] Radiology 800 [place] [address] 08/31/2025 9:30 AM EST Office Visit [facility] Head[facility] Neck [facility] Respiratory 800 [facility], 2nd [place] [address] Jeffery Devine, DO 800 [facility] [address] [place] [address] documented as of this encounter Goals Goal [...] documented as of this encounter Care Teams Converter Supervisor Relationship Specialty Start Date End Date Caridad Oliver APRN [address] [place] [address] PCP - General 02/22/21 documented as of this encounter
--- OUTSIDE RECORDS SUMMARY | 2025-03-23 13:40 | XMS_ITS | Encounter Summary ---
Author Organization Healthcare Address [address] [place] [address] Care Team Providers Care Color Maker Dyer Name Role Phone BenitoCaridad Gaby JIMENES Primary Care Provider [phone] Encounter Details Date Type Department Care Team [...] AM EST Appointment [facility] Radiology [address] [place] [address] 08/31/2025 9:30 AM EST Office Visit [facility] Ne[facility] Respiratory 800 [facility], 2nd [place] [address] Jeffery Devine, DO 800 [facility] 1[address] [place] [address] documented as of this encounter Goals Goal [...] documented as of this encounter Care Teams Color Maker Dyer Relationship Specialty Start Date End Date Caridad Oliver APRN [address] [place] [address] PCP - General 02/22/21 documented as of this encounter
--- OUTSIDE RECORDS SUMMARY | 2025-03-23 13:40 | XMS_ITS | Encounter Summary ---
Author Organization Healthcare Address [address] [place] [address] Care Team Providers Care Livestock Yard Attendant Name Role Phone BenitoCaridad Gaby JIMENES Primary Care Provider [phone] Encounter Details Date Type Department Care Team (Late st Contact Info) Description 02/07/2025 Telephone [facility] [address] , [address]nd [place] [address] Corie West RN [facility] Social [...] any time in the past 12 m [facility], were you homeless or [...] AM EST Appointment [facility] Radiology [address] [place] [address] 08/31/2025 9:30 AM EST Office Visit [facility] Res[facility] 800 [facility], 2nd [place] [address] Jeffery Devine D, DO 800 [facility] 1[address] [place] [address] documented as of this encounter Goals Goal [...] documented as of this encounter Care Teams Livestock Yard Attendant Relationship Specialty Start Date End Date Caridad Oliver APRN [address] [place] [address] PCP - General 02/22/21 documented as of this encounter
--- OUTSIDE RECORDS SUMMARY | 2025-03-23 13:40 | XMS_ITS | Encounter Summary ---
Author Organization Healthcare Address [address] [place] [address] Care Team Providers Care Back Line Cook Name Role Phone BenitoCaridad Gaby JIMENES Primary Care Provider [phone] Encounter Details Date Type Department Care Team [...] any time in the past 12 m [facility], were you homeless or living in [...] AM EST Appointment [facility] Radiology [address] [place] [address] 08/31/2025 9:30 AM EST Office Visit [facility] Head[facility] Neck [facility] Res[facility] 800 [facility], 2nd [place] [address] Jeffery Devine, DO 800 [facility] [address]st [place] [address] documented as of this encounter Goals Goal [...] documented as of this encounter Care Teams Back Line Cook Relationship Specialty Start Date End Date Caridad Oliver APRN [address] [place] [address] PCP - General 02/22/21 documented as of this encounter
--- OUTSIDE RECORDS SUMMARY | 2025-03-23 13:40 | XMS_ITS | Encounter Summary ---
Author Organization Healthcare Address [address] [place] [address] Care Team Providers Care Hat Body Sorter Name Role Phone BenitoCaridad Gaby JIMENES Primary Care Provider [phone] Encounter Details Date Type Department Care Team [...] any time in the past 12 m [facility], were you homeless or living [...] No Risk Indicated 01/29/2025 8:01 PM EDT uDong Savage, RN * Question Answer Date of [...] AM EST Appointment [facility] Radiology [address] [place] [address] 08/31/2025 9:30 AM EST Office Visit [facility] Head[facility] Neck [facility] Respiratory 800 [facility], 2nd [place] [address] Jeffery Devine, DO 800 [facility] 1[address] [place] [address] documented as of this encounter Goals Goal [...] documented as of this encounter Care Teams Hat Body Sorter Relationship Specialty Start Date End Date Caridad Oliver APRN [address] [place] [address] PCP - General 02/22/21 documented as of this encounter
--- OUTSIDE RECORDS SUMMARY | 2025-03-23 13:40 | XMS_ITS | Encounter Summary ---
Author Organization Healthcare Address [address] [place] [address] Care Team Providers Care Claims Customer Service Representative Name Role Phone BenitoCaridad Gaby JIMENES Primary Care Provider [phone] Encounter Details Date Type Department Care Team [...] time in the past 12 m [facility], were you homeless or living in a correction (including now)? No 01/10/2025 Utilities Answer Date [...] AM EST Appointment [facility] Radiology [address] [place] [address] 08/31/2025 9:30 AM EST Office Visit [facility] Head[facility] Neck [facility] Respiratory 800 [facility], 2nd [place] [address] Jeffery Devine, DO 800 [facility] [address] [place] [address] documented as of this encounter Goals Goal [...] documented as of this encounter Care Teams Claims Customer Service Representative Relationship Specialty Start Date End Date Caridad Oliver APRN [address] [place] [address] PCP - General 02/22/21 documented as of this encounter
--- OUTSIDE RECORDS SUMMARY | 2025-03-23 13:41 | XMS_ITS | Encounter Summary ---
Author Organization Healthcare Address [address] [place] [address] Care Team Providers Care Fish Cleaner Machine Tender Name Role Phone BenitoCaridad JALIL Primary Care Provider [phone] Encounter Details Date Type Department Care Team (Late Contact Info) Description 03/10/2024 Orders Only External Location [address] [place] [address] Provider, External Social History Tobacco Use Types [...] Appointment [facility] Radiology [address] [place] [address] 08/31/2025 9:30 AM EST Office Visit [facility] Head[facility] Neck [facility] Respiratory 800 [facility], 2nd [place] [address] Jeffery Devine, DO [address] [address] documented as of this encounter Procedures Procedure [...] documented as of this encounter Care Teams Fish Cleaner Machine Tender Relationship Specialty Start Date End Date Caridad Oliver, JALIL [address] [place] [address] PCP - General 02/22/21 documented as of this encounter
--- OUTSIDE RECORDS SUMMARY | 2025-03-23 13:41 | XMS_ITS | Encounter Summary ---
Author Organization Healthcare Address [address] [place] [address] Care Team Providers Care Economic Manager Name Role Phone Caridad Oliver TOOL/DIE MAKER Primary Care Provider [phone] Encounter Details Date Type Department Care Team (Late Contact Info) Description 12/23/2022 Orders Only External Location [address] [place] [address] Margarita Calvo, TOOL/DIE MAKER [address] [place] [address] Social History Tobacco Use Types Packs/Day Years [...] Appointment [facility] Radiology [address] [place] [address] 08/31/2025 9:30 AM EST Office Visit [facility] Head[facility] Neck [facility] Respiratory 800 [facility], 2nd [place] [address] Jeffery Devine, DO 800 [facility] 1[address] [place] [address] documented as of this encounter Procedures Procedure Name Priority Date/Time Associated Diagnosis Comments XR OUTSIDE IMAGES 12/23/2022 11:09 AM EDT documented in this encounter Results * XR OUTSIDE IMAGES (12/23/2022 11:09 AM EDT) Anatomical Region Laterality Modality Radiographic Laura ging 12/23/2022 11:0 9 AM EDT us Margarita Calvo TOOL/DIE MAKER IMG XR PROCEDURES Final Resul t documented in this encounter Visit Diagnoses Not on filedocumented in this encounter Additional Health Concerns Infection Onset Date Last Indicated Resolved Time C. difficile Rule-Out 01/27/2025 01/27/20252024 12:12 AM EDT documented as of this encounter Care Teams Economic Manager Relationship Specialty Start Date End Date Caridad Oliver APRN [address] [place] [address] PCP - General 02/22/21 documented as of this encounter
--- OUTSIDE RECORDS SUMMARY | 2025-03-23 13:41 | XMS_ITS | Encounter Summary ---
Author Organization Healthcare Address [address] [place] [address] Care Team Providers Care Food Chemist Name Role Phone Caridad Oliver JALIL Primary Care Provider [phone] Encounter Details Date Type Department Care Team (Late st Contact Info) Description 11/04/2022 Community [facility] Community Practice [address] [place] [address] Leonora Hansen, SATELLITE DISH TECHNICIAN [address] [place] [address] Hiatal hernia (Primary Dx) Social History Tobacco [...] AM EST Appointment P[facility] H Radiology [address] [place] [address] 08/31/2025 9:30 AM EST Office Visit Pav CC Head, Neck & Respiratory 800 [facility], 2nd [place] [phone] Jeffery Devine, DO 800 [facility] [address] [place] [phone] documented as of this encounter Visit Diagnoses Diagnosis Hiatal hernia- Primary Diaphragmatic hernia without mention of obstruction or gangrene documented in this encounter Additional Health Concerns Infection Onset Date Last Indicated Resolved Time C. difficile Rule-Out 01/27/2025 01/27/20252024 12:12 AM EDT documented as of this encounter Care Teams Food Chemist Relationship Specialty Start Date End Date Caridad Oliver APRN [address] [place] [address] PCP - General 02/22/21 documented as of this encounter
--- OUTSIDE RECORDS SUMMARY | 2025-03-23 13:41 | XMS_ITS | Encounter Summary ---
Author Organization Healthcare Address [address] [place] [address] Care Team Providers Care Yard Inspector Name Role Phone Caridad Oliver JALIL Primary Care Provider [phone] Encounter Details Date Type Department Care Team (Late Contact Info) Description 05/27/2024 Orders Only External Location [address] [place] [address] Provider, External Social History Tobacco Use Types [...] AM EST Appointment [facility] H Radiology [address] [place] [address] 08/31/2025 9:30 AM EST Office Visit Pav [facility] Head, Neck & Respiratory 800 [facility], 2nd [place] [address] Jeffery Devine, DO [address] [phone] documented as of this encounter Procedures Procedure [...] documented as of this encounter Care Teams Yard Inspector Relationship Specialty Start Date End Date Caridad Oliver APRN [address] [place] [address] PCP - General 02/22/21 documented as of this encounter
--- OUTSIDE RECORDS SUMMARY | 2025-03-23 13:41 | XMS_ITS | Clinical Summary ---
Author Organization [facility] Address [address] [place] [address] Care Team Providers Care Retail Team Leader Name Role Phone Caridad Oliver Gaby JIMENES Primary Care Provider [phone] Allergies Active Allergy Reactions Criticality Noted Date [...] J Tube route every 1 (one) hour. 11315 mL 5 5 07/18/20 25 Active oxyCODONE [...] mL by mouth 2 times a day. 40394 mL 2 5 05/15/20 25 Active metoclopramide [...] & Respiratory [address], 2nd [place] [address] Corie West RN 03/02/2025 10:30 AM EDT Office Visit Pav [facility] Head[facility] Neck & Respiratory [address], 2nd [place] [address] Jeffery Devine DO Achalasia (Primary Dx) 03/02/2025 Travel 02/23/2025 Telephone Pav [facility] Head[facility] Neck & Respiratory [address], 2nd [place] [address] Ivett Navarrete RN 02/21/2025 11:15 AM EDT Office Visit Pav [facility] Head[facility] Neck & Respiratory [address], [address] [place] [address] Stephanie Ray PA Achalasia (Primary Dx) 02/21/2025 Travel 02/20/2025 Telephone Pav [facility] Head[facility] Neck & Respiratory [address], [address] [place] [address] Jeffery Devine, DO 02/14/2025 11:20 AM EDT Office Visit Pav [facility] Head[facility] Neck & Respiratory [address] [address] Stephanie Ray PA Achalasia (Primary Dx) 02/14/2025 10:45 AM EDT - 02/14/2025 11:59 PM EDT Hospital Encounter P[facility] H Radiology [address] [place] [address] Achalasia Discharge Disposition: Home or Self Care 02/14/2025 Nutrition Pav [facility] Head[facility] Neck & Respiratory [address] [address] Stephy Devine, RD 02/14/2025 Travel 02/14/2025 Telephone Pav [facility] Head[facility] Neck & Respiratory [address] [address] Jeffery Devine, DO 02/07/2025 Telephone Pav [facility] Head[facility] Neck & Respiratory [address] [address] Corie West, RN 02/06/2025 Refill Pav [facility] Head[facility] Neck & Respiratory [address] [phone] Jeffery Devine, DO 02/03/2025 Telephone PAV A Inpatient [address] [place] [address] Kera Garcia 02/01/2025 Travel 01/31/2025 Travel 01/30/2025 Travel 01/29/2025 Travel 01/28/2025 Travel 01/27/2025 Travel 01/26/2025 Travel 01/25/2025 8:15 AM EDT - 01/25/2025 3:00 PM EDT Surgery [facility] A OPERATING ROOM [address] [place] [phone] Jeffery Devine, DO MINIMALLY INVASIVE ESOPHAGECTOMY, LAPAROSCOPIC [[id number] (CPT )] 01/25/2025 8:06 AM EDT Anesthesia Event [facility] A OPERATING ROOM [address] [place] [phone] Lesa Mosquera MD Wilson, Derek, MD 01/25/2025 5:44 AM EDT - 02/01/2025 2:38 PM EDT Hospital Encounter PAV A Inpatient [address] [place] [address] Jeffery Devine, Achalasia Discharge Disposition: Home or Self Care 01/25/2025 Travel 01/24/2025 Travel 01/19/2025 2:30 PM EDT Office Visit Pav [facility] Head, Neck & Respiratory [address] [address] Jeffery Devine, Achalasia (Primary Dx) 01/19/2025 Nutrition [facility] Mult[facility] Oncology Clinic [address] [place] [address] Nancy Devine 01/19/2025 Travel 01/13/2025 Telephone PAV A Inpatient [address] [place] [address] Kera Garcia 01/09/2025 7:30 AM EDT - 01/09/2025 2:45 PM EDT Surgery [facility] OPERATING ROOM [address] [place] [address] Jeffery Devine, DO CREATION, JEJUNOSTOMY, LAPAROSCOPIC 01/09/2025 7:28 AM EDT Anesthesia Event [facility] A OPERATING ROOM [address] [place] [address] Selvin Enriquez DO Smyke, Matthew E, MD 01/09/2025 5:59 AM EDT - 01/11/2025 3:52 PM EDT Hospital Encounter PAV A Inpatient [address] [place] [address] Jeffery Devine, Achalasia (Primary Dx) Discharge Disposition: Home or Self Care 01/09/2025 Travel 01/06/2025 9:30 AM EDT Pre-Admission Testing [place] [facility] Pre[facility]op Clinic [address], 1st [place] [address] Achalasia (Primary Dx); Hyperlipidemia, unspecified hyperlipidemia type 01/06/2025 Travel 01/04/2025 Telephone Pav [facility] Head, Neck & Respiratory [address] [address] Jeffery Devine DO 12/30/2024 Telephone [place] Clinic Pre-op Clinic [address], 1st [place] [phone] Ulices Najera MD 12/29/2024 Telephone [place] Clinic Pre-op Clinic [address], [address] [place] [address] Ulices Najera MD 12/26/2024 Telephone Pav CC Head, Neck & Respiratory [address] 2nd [place] [address] Jeffery Devine, DO from Last 3 Months [...] were you homeless or living in a custodial (including now)? No 01/26/2025 Utilities Answer Date [...] AM EST Appointment P[facility] H Radiology [address] [place] [address] 08/31/2025 9:30 AM EST Office Visit Pav CC Head, Neck & Respiratory 800 [facility], 2nd [place] [address] Jeffery Devine, DO [address] [place] [phone] Health Maintenance Due Date Last Done Comments [...] 2022 [facility]-Zoster Vaccines (1 of 2) 2022 [id number]-57 Vaccine ( - season) 2024 [facility]-Influenza Vaccine [...] ANESTHESIA PLACEHOLDER Routine 2024 8:[address] AN ELECTIVE ENDOTRACHEAL AIRWAY Routine 01/25/2025 8:[address] ESOPHAGECTOMY DISTAL 2/3 W/LAPAROSCOPIC MOBLJ 01/25/2025 7:50 [...] ANESTHESIA PLACEHOLDER Routine 2024 7:[address] AN ELECTIVE ENDOTRACHEAL AIRWAY Routine 01/09/2025 7:[address] ESOPHAGOGASTRODUODENOSCOP Y TRANSORAL DIAGNOSTIC 01/09/2025 7:16 AM [...] with the final edited report. Drafted by Lkuas Card MD on 02/14/2025 1:22 PM Final report signed by Obdulio Bertrand MD on 02/14/2025 1:36 PM Jeffery Devine DO IMG XR PROCEDURES Final Resul t * (ABNORMAL) CBC W/O Differential (02/01/2025 9:57 AM EDT) Only the most recent of12 resultswithin the time period is included. WBC Count 9.34 3.70 - 10.30 10*3/uL LAB HEMATOLOGY METHOD 02/01/2025 10:20 AM EDT [facility] RBC Count 3.60(L) 3.90 - 5.20 10*6/uL LAB HEMATOLOGY METHOD 02/01/2025 10:20 AM EDT [facility] HGB 10.3(L) 11.2 - 15.7 g/dL LAB HEMATOLOGY METHOD 02/01/2025 10:20 AM EDT [facility] HCT 31.9(L) 34.0 - 45.0 % LAB HEMATOLOGY METHOD 02/01/2025 10:20 AM EDT [facility] Platelet Count 259 155 - 369 10*3/uL LAB HEMATOLOGY METHOD 02/01/2025 10:20 AM EDT [facility] MCV 89 79 - 98 fL LAB HEMATOLOGY METHOD 02/01/2025 10:20 AM EDT [facility] MCH 28.6 26.0 - 32.0 pg LAB HEMATOLOGY METHOD 02/01/2025 10:20 AM EDT [facility] MCHC 32.3 30.7 - 35.5 g/dL LAB HEMATOLOGY METHOD 02/01/2025 10:20 AM EDT [facility] RDW 14.1 11.5 - 14.5 % LAB HEMATOLOGY METHOD 02/01/2025 10:20 AM EDT [facility] MPV 10.6 8.8 - 12.5 fL LAB HEMATOLOGY METHOD 02/01/2025 10:20 AM EDT [facility] nRBC 0.0 <=0.0 per 100 WBCs LAB HEMATOLOGY METHOD 02/01/2025 10:20 AM EDT [facility] Blood Venous blood specimen / Unknown Venipuncture / Unknown 02/01/2025 9:57 AM EDT 02/01/2025 10:13 AM EDT Diamante Weber BAR HOSTESS LAB BLOOD ORDERABLES Final Re sult Performing Organization Address [facility]/ZIP Co de Phone Number [facility] [address] [place] [address] * Magnesium, Plasma (02/01/2025 9:57 AM EDT) Only the most recent of10 resultswithin the time period is included. Magnesium, Plasma 2.2 1.9 - 2.4 mg/dL 02/01/2025 10:43 AM EDT [facility] Blood Venous blood specimen / Unknown Venipuncture / Unknown 02/01/2025 9:57 AM EDT 02/01/2025 10:13 AM EDT us Diamante Stallingsy BAR HOSTESS LAB BLOOD ORDERABLES Final Re sult Performing Organization Address [facility] Co de Phone Number [facility] [address] [place] [address] * (ABNORMAL) Renal Function Panel, Plasma (02/01/2025 9:57 AM EDT) Only the most recent of11 resultswithin the time period is included. Glucose, Plasma 98 74 - 99 mg/dL 02/01/2025 10:43 AM EDT [facility] BUN, Plasma 15 7 - 21 mg/dL 02/01/2025 10:43 AM EDT [facility] Creatinine, Plasma 0.56(L) 0.60 - 1.10 mg/dL 02/01/2025 10:43 AM EDT [facility] BUN/Creatinine Ratio 27 02/01/2025 10:43 AM EDT [facility] Sodium, Plasma 140 136 - 145 mmol/L 02/01/2025 10:43 AM EDT [facility] Potassium, Plasma 4.2 3.6 - 4.9 mmol/L 02/01/2025 10:43 AM EDT [facility] Chloride, Plasma 104 97 - 107 mmol/L 02/01/2025 10:43 AM EDT [facility] CO2, Plasma 25 22 - 29 mmol/L 02/01/2025 10:43 AM EDT [facility] Anion Gap 11 6 - 16 mmol/L 02/01/2025 10:43 AM EDT [facility] Total Calcium, Plasma 8.7(L) 8.9 - 10.2 mg/dL 02/01/2025 10:43 AM EDT [facility] Phosphorus, Plasma 3.9 2.5 - 4.5 mg/dL 02/01/2025 10:43 AM EDT [facility] Albumin, Plasma 3.2(L) 3.5 - 5.2 g/dL 02/01/2025 10:43 AM EDT [facility] eGFRcr 110.0 mL/min/1.7 3m*2 02/01/2025 10:43 AM EDT [facility] Comment:Reported eGFRcr in m L/min/1.73m2 is based the CKD-EPI 2020 equation that does not use a race coefficient. Blood Venous blood specimen / Unknown Venipuncture / Unknown 02/01/2025 9:57 AM EDT 02/01/2025 10:13 AM EDT us Diamante Weber BAR HOSTESS LAB BLOOD ORDERABLES Final Re sult [facility] [address] [place] [address] * XR Chest 1 View (02/01/2025 6:56 [...] MD on 02/01/2025 9:35 AM Diamante Weber BAR HOSTESS IMG XR PROCEDURES Final Resul t * (ABNORMAL) POCT glucose meter (01/31/2025 11:58 PM EDT) Only the most recent of21 resultswithin the time period is included. POCT Glucose 136(H) 74 - 99 mg/dL 02/01/2025 12:00 AM EDT [facility] Comment:Accuracy of a glucos e result [...] for testing. Comment 02/01/2025 12:00 AM EDT [facility] Diesel Service Apprentice ID [id number] i, Saichon 02/01/2025 12:00 AM EDT [facility] Device ID [id number] 02/01/2025 12:00 AM EDT [facility]ALTH[facility]ARE [facility] Specimen Type POC Capillary 02/01/2025 12:00 AM EDT [facility] Blood Capillary blood specimen / Unknown 01/31/2025 11:58 PM EDT 02/01/2025 12:00 AM EDT Jeffery Devine DO LAB POINT OF CARE TE ST DOCKED DEVICE UNSOLICITED RESULTS Final Result [facility] [address] [place] [address] * FL Barium Swallow (01/30/2025 10:03 AM [...] extraluminal contrast or anastomotic leak. Other: On infantry indirect fire crewmember imaging, unchanged positioning of the surgical clips [...] of extraluminal contrast oranastomotic leak. Other: On infantry indirect fire crewmember imaging, unchanged positioning of the surgical clipsoverlying [...] Detected Not Detected 01/28/2025 12:12 AM EDT [facility] Stool Rectum structure / Unknown Non-blood Collection / Unknown 01/27/2025 10:40 PM EDT 01/27/2025 11:04 PM EDT Narrative [facility] - 01/28/2025 12:12 AM EDT [...] OR DERABLES Final Result Performing Organization Address [facility] Co de Phone Number [facility] [address] [place] [address] * Makayla auris Surveillance by PCR (01/25/2025 3:02 PM EDT) Pathologist [facility] Makayla auris PCR Result Not Detected Not Detected 01/26/2025 10:17 AM EDT [facility] Swab (Axilla and Groin) Non-blood Collection / Unknown 01/25/2025 3:02 PM EDT 01/25/2025 3:42 PM EDT Narrative [facility] - 01/26/2025 10:17 AM EDT This PCR assay was developed and its performance characteristics determined by [facility] as appropriate for clinical purposes. This assay has not been cleared or approved by the FDA, but is performed in a CLIA regulated laboratory that is qualified to perform high-complexity testing. us Jeffery Devine DO LAB MICROBIOLOGY - GENERAL OR DERABLES Final Result Performing Organization Address [facility] Co de Phone Number [facility] [address] [place] [address] * Multi Drug Resistance Test (01/25/2025 3:02 PM EDT) Pathologist [facility] Culture No growth at day 1 01/26/2025 1:57 PM EDT [facility] Swab (Nares and Alexandra Rectal) Non-blood Collection / Unknown 01/25/2025 3:02 PM EDT 01/25/2025 3:42 PM EDT us Jeffery Devine DO LAB MICROBIOLOGY - GENERAL OR DERABLES Final Result [facility] [address] [place] [address] * (ABNORMAL) Blood gas panel, arterial (01/25/2025 2:59 PM EDT) pH, Arterial 7.34(L) 7.35 - 7.45 LAB HEMATOLOGY METHOD 01/25/2025 3:16 PM EDT [facility] pCO2, Arterial 44 35 - 48 mmHg LAB HEMATOLOGY METHOD 01/25/2025 3:16 PM EDT [facility] pO2, Arterial 75(L) 83 - 108 mmHg LAB HEMATOLOGY METHOD 01/25/2025 3:16 PM EDT [facility] SO2, Measured, Arterial 95 94 - 98 % LAB HEMATOLOGY METHOD 01/25/2025 3:16 PM EDT [facility] Base Excess, Arterial -2.1(L) -2.0 - 3.0 mmol/L LAB HEMATOLOGY METHOD 01/25/2025 3:16 PM EDT [facility] Bicarbonate, Calculated, Arterial 24 22 - 26 mmol/L LAB HEMATOLOGY METHOD 01/25/2025 3:16 PM EDT [facility] Hematocrit, Whole Blood 37.3 34.0 - 45.0 % LAB HEMATOLOGY METHOD 01/25/2025 3:16 PM EDT [facility] Sodium, Whole Blood 141 136 - 145 mmol/L LAB HEMATOLOGY METHOD 01/25/2025 3:16 PM EDT [facility] Potassium, Whole Blood 3.7 3.6 - 4.9 mmol/L LAB HEMATOLOGY METHOD 01/25/2025 3:16 PM EDT [facility] Chloride, Whole Blood 108(H) 97 - 107 mmol/L LAB HEMATOLOGY METHOD 01/25/2025 3:16 PM EDT [facility] Glucose, Whole Blood 152(H) 74 - 99 mg/dL LAB HEMATOLOGY METHOD 01/25/2025 3:16 PM EDT [facility] Ionized Calcium, Whole Blood 4.6 4.6 - 5.1 mg/dL LAB HEMATOLOGY METHOD 01/25/2025 3:16 PM EDT [facility] Lactate, Arterial, Whole Blood 2.6(H) 0.5 - 1.6 mmol/L LAB HEMATOLOGY METHOD 01/25/2025 3:16 PM EDT [facility] Blood Arterial blood specimen / Unknown Arterial Puncture / Unknown 01/25/2025 2:59 PM EDT 01/25/2025 3:13 PM EDT us Diamante Weber BAR HOSTESS LAB BLOOD ORDERABLES Final Re sult [facility] [address] [place] [address] * Surgical Pathology Exam (01/25/2025 12:18 PM EDT) Case Report Surgical Pathology Case: [id number] Authorizing Provider: Jeffery Devine DO Collected: 01/25/2025 1218 Ordering Location: [facility] OPERATING ROOM Received: 01/25/2025 1326 Pathologist: Harshil Banks MD Specimens: A) - Esophagus, portion of esophagus fresh for permanent B) - Esophagus, esophagogastric anastomosis fresh for permanent C) - Esophagus, esophagogastrectom y fresh for permanent 12:28 PM EDT [facility] Final Diagnosis A. ESOPHAGUS, EXCISION: - [...] BENIGN LYMPH NODES (7) 12:28 PM EDT [facility] at 1228 EDT Clinical Information Achalasia 01/11 5 12:28 PM EDT [facility] Special and Immunohistochemical Stains Special Stain: [id number] Mike Trichrome Stain IHC: There are no tasks to display for the given criteria. All controls show appropriate reactivity. All immunohistochemist ry, in situ hybridization, and histochemical tests were developed by and are performed at the [facility], [address] [place] [address]. All tests reported here, except those addressing [...] on decalcified specimens. 5 12:28 PM EDT [facility] Gross Description A. PORTION OF ESOPHAGUS FRESH FOR PERMANENT The specimens received fresh, placed in formalin labeled p ortion of esophagus and consists of a a 3.5 x 0.3 x 0.2 cm teague-pink segment of stapled esophagus with scantly attached esophageal tissue. The chiqui are excised and customer retention representative sections are submitted in cassette A1. [...] to reveal teague-pink, grossly unremarkable mucosal surface. Mass Spectrometry Manager sections are submitted in cassette B1. [...] grossly identified. Gross photographs have been taken. Mass Spectrometry Manager sections are submitted as follows: C1: [...] 56m Angeles Barreto MD 12:28 PM EDT [facility] Note: A resident was involved in the service. I attest I examined the relevant preparations for the specimens and confirmed the diagnosis or interpretation. 12:28 PM EDT [facility] Tissue Esophageal structure / Unknown [...] DO LAB PATHOLOGY ORDERABLES Prudence cabezas Result [facility] [address] [place] [address] * ANESTHESIA ULTRASOUND GUIDED (01/25/2025 8:45 AM [...] ORDERABLES Edited Res ult - Final * CT AN ELECTIVE ENDOTRACHEAL AIRWAY, PB ANESTHESIA PLACEHOLDER [...] ORDERABL ES Final Result Performing Organization Address City/State/[facility] Co de Phone Number BLOOD BANK [address] [place] [address], * ECG Adult (01/10/2025 4:02 AM EDT) Only the most recent of2 resultswithin the time period is included. EKG DIAGNOSIS CLASS Borderline Normal MUSE ECG Ventricular Rate 54 BPM MUSE ECG Atrial Rate [address] Interval 162 ms MUSE ECG QRSD Interval 86 ms MUSE ECG QT Interval 458 ms MUSE ECG QTC Interval 434 ms MUSE ECG P Baden 57 degrees MUSE ECG R Baden 11 degrees MUSE ECG T Wave B[place] 15 degrees MUSE ECG Diagnosis Sinus bradycardia MUSE ECG Diagnosis Otherwise normal ECG MUSE ECG Diagnosis MUSE ECG Diagnosis Confirmed by Reymundo Swift ([id number]) on 01/10/2025 10:55:32 AM MUSE ECG 01/10/2025 4:02 AM EDT 01/10/2025 10:55 AM EDT Jeffery Devine DO ECG ORDERABLES Final Result Performing Organization Address City/[facility]/ZIP Co de Phone Number MUSE ECG * (ABNORMAL) Prealbumin (01/10/2025 3:33 AM EDT) Prealbumin, Plasma 18.8(L) 20.0 - 41.0 mg/dL 01/10/2025 5:08 AM EDT [facility] Blood Venous blood specimen / Unknown Venipuncture / Unknown 01/10/2025 3:33 AM EDT 01/10/2025 4:39 AM EDT Jeffery Devine DO LAB BLOOD ORDERABLES Final Re sult Performing Organization Address City/[facility] Co de Phone Number [facility] [address] [place] [address] * Peripheral IV (01/09/2025 8:06 AM EDT) [...] Resident Anesthesiologist: Selvin Enriquez DO Resident: Anuj Tompkins MD Selvin Enriquez DO ANESTHESIA ORDERABLES Final Re sult * CT AN ELECTIVE ENDOTRACHEAL AIRWAY, PB ANESTHESIA PLACEHOLDER [...] Basic metabolic panel (01/06/2025 10:27 AM EDT) [facility] Glucose, Plasma 96 74 - 99 mg/dL 01/06/2025 12:16 PM EDT [facility] BUN, Plasma 15 7 - 21 mg/dL 01/06/2025 12:16 PM EDT [facility] Creatinine, Plasma 0.69 0.60 - 1.10 mg/dL 01/06/2025 12:16 PM EDT [facility] BUN/Creatinine Ratio 22 01/06/2025 12:16 PM EDT [facility] Sodium, Plasma 144 136 - 145 mmol/L 01/06/2025 12:16 PM EDT [facility] Potassium, Plasma 4.4 3.6 - 4.9 mmol/L 01/06/2025 12:16 PM EDT [facility] Chloride, Plasma 107 97 - 107 mmol/L 01/06/2025 12:16 PM EDT [facility] CO2, Plasma 25 22 - 29 mmol/L 01/06/2025 12:16 PM EDT [facility] Anion Gap 12 6 - 16 mmol/L 01/06/2025 12:16 PM EDT [facility] Total Calcium, Plasma 9.6 8.9 - 10.2 mg/dL 01/06/2025 12:16 PM EDT [facility] eGFRcr 104.6 mL/min/1.7 3m*2 01/06/2025 12:16 PM EDT [facility] Comment:Reported eGFRcr in m L/min/1.73m2 is based the CKD-EPI 2020 equation that does not use a race coefficient. Blood Venous blood specimen / Unknown Venipuncture / Unknown 01/06/2025 10:27 AM EDT 01/06/2025 10:27 AM EDT us Micheline Chavez APRN LAB BLOOD ORDERABLES Prudence cabezas Result [facility] [address] [place] [address] * Cytology (12/05/1998 12:00 AM EST) 12/05/1998 12/06/1998 Narrative [facility] - 12/13/1998 12:00 AM EST [facility] MR #: [id number] [facility] [place], [place] [address] 1970 (Age: 28) FW Collect Date: 12/05/1998 00:00 Receipt Date: 12/06/1998 00:00 Page 1 DEPARTMENT OF PATHOLOGY AND LABORATORY MEDICINE CYTOPATHOLOGY REPORT Email: [email or web address] * Converted Case * This report may [...] results is suggested (please call Microbiology at [phone] for results). CLINICAL INFORMATION: Menstrual History: {Not Provided} Date of Last Menstrual Period: {Not Provided} SPECIMEN DESCRIPTION: A: CERVICAL/VAGINAL SMEAR, PAP ICD: F: {Not Entered} SNOMED CODES: 1; [id number] In cases where a pathologist has signed out the report, the service has been rendered in part by a resident. The signing pathologist has performed and is responsible for the reported pathologic evaluation. [facility] Provider LAB PATHOLOGY ORDERABLES Final Result [facility] [...] 9:54 AM 01/11/2025 5:57 PM Care Teams Retail Team Leader Relationship Specialty Start Date End Date Caridad Oliver APRN [address] [place] [address] PCP - General 02/22/21
--- OUTSIDE RECORDS SUMMARY | 2025-03-23 13:41 | XMS_ITS | Encounter Summary ---
Author Organization Healthcare Address [address] [place] [address] Care Team Providers Care Poultry Offal Worker Name Role Phone BenitoCaridad JALIL Primary Care Provider Encounter Details Date Type Department Care Team ([facility] Contact Info) Description 02/20/2021 Orders Only External Location [address] [place] [address] Provider, External Social History Tobacco Use Types [...] AM EST Appointment PAV H Radiology [address] [place] [address] 08/31/2025 9:30 AM EST Office Visit Pav CC Head, Neck & Respiratory 800 [facility], 2nd [place] [address] Jeffery Devine, DO [address] [address] documented as of this encounter Procedures Procedure [...] documented as of this encounter Care Teams Poultry Offal Worker Relationship Specialty Start Date End Date Caridad Oliver APRN [facility] [place] [address] PCP - General 02/22/21 documented as of this encounter
--- OUTSIDE RECORDS SUMMARY | 2025-03-23 13:41 | XMS_ITS | Encounter Summary ---
Author Organization Healthcare Address [address] [place] [address] Care Team Providers Care Pcb Designer Name Role Phone BenitoCaridad Gaby JIMENES Primary Care Provider [phone] Encounter Details Date Type Department Care Team (Late Contact Info) Description 01/05/2021 Orders Only External Location [address] [place] [address] Provider, External Social History Tobacco Use Types [...] AM EST Appointment PAV H Radiology [address] [place] [address] 08/31/2025 9:30 AM EST Office Visit [facility] Res[facility] 800 [facility], 2nd [place] [address] Jeffery Devine, DO [address] [address] documented as of this encounter Procedures Procedure [...] documented as of this encounter Care Teams Pcb Designer Relationship Specialty Start Date End Date Caridad Oliver, JALIL [address] [place] [address] PCP - General 02/22/21 documented as of this encounter
[2025-03-23 13:44] LABS: Erythrocyte Sedimentation Rate 16 mm/hr (0-30)
[2025-03-23 14:10] LABS: Chloride 112 mmol/L (98-107); Potassium 4.1 mmoL/L (3.5-5.1); Sodium 140 mmol/L (136-145)
[2025-03-23 14:12] LABS: Blood Urea Nitrogen 12 mg/dl (7-17); Estimated Glomerular Filt Rate 88 ml/min (>60); GFR (African American) 106 ML/MIN (>60)
[2025-03-23 14:13] LABS: Alanine Aminotransferase 14 U/L (12-78); Albumin/Globulin Ratio 1.7 (1.1-1.8); Alkaline Phosphatase 91 U/L (38-126); Anion Gap 7.1 mEq/L (5-15); Aspartate Amino Transferase 21 U/L (14-36); Bilirubin,Total 1.1 mg/dl (0.2-1.3); Calcium 10.5 mg/dl (8.4-10.2); Carbon Dioxide 25 mmol/L (22.0-30.0); Globulin 2.4 g/dL (1.3-3.2); Glucose 96 mg/dl (74-100); Total Protein,Serum 6.4 g/dl (6.3-8.2)
[2025-03-23 14:18] LABS: C-Reactive Protein 1.1 mg/L (0-4)
[2025-03-24 08:32] LABS: Complement C3 127 mg/dL (82-167)
[2025-03-24 12:18] LABS: Anti-Centromere B Antibodies <0.2 AI (0.0-0.9); Anti-DNA (DS) Ab Qn <1 IU/mL (0-9); Anti-Jo-1 <0.2 AI (0.0-0.9); Anti-Smith Antibody <0.2 AI (0.0-0.9); Antichromatin Antibodies <0.2 AI (0.0-0.9); Antiscleroderma-70 Antibodies <0.2 AI (0.0-0.9); RNP Antibodies <0.2 AI (0.0-0.9); Sjogren's Anti-SS-A <0.2 AI (0.0-0.9); Sjogren's Anti-SS-B <0.2 AI (0.0-0.9)
[2025-03-24 14:20] LABS: Complement, Total (CH50) >60 U/mL (>41)
== END 2025-03-23 23:59 | disposition home or self-care (01) ==
LOC: LAB 12:42
PROVIDERS: PCP Internal Medicine Adolescent Medicine; Visit Provider Nurse Practitioner Family
DX: L50.8 Other urticaria (principal)
CPT/HCPCS: 36415; 80053; 85025; 85651; 86140; 86161; 86162; 86225; 86235

== ENCOUNTER 2025-04-05 12:21 | Outpatient (CLI) | payer BC, SELFPAY ==
--- OUTSIDE RECORDS SUMMARY | 2025-02-14 10:45 | XMS_ITS | Encounter Summary ---
Author Organization Healthcare Address [address] [place] [address] Care Team Providers Care Pet Food Deboner Name Role Phone BenitoCaridad Gaby JIMENES Primary Care Provider [phone] Encounter Details Date Type Department Care Team (Latest Contact Info) Description 02/14/2025 10:45 AM EDT - 02/14/2025 11:59 PM EDT Hospital Encounter [facility] Radiology [address] [place] [address] Achalasia Discharge Disposition: Home or Self Care Social History Tobacco Use Types Packs/Day Years Used Date Smoking Tobacco: Former Cigarettes 0.5 26.5 S tarted: 1998 Smokeless Tobacco: Never Alcohol [...] any time in the past 12 m [facility], were you homeless or living in a [...] on file documented as of this encounter Medications at Time of Discharge cetirizine (ZyrTEC) 10 MG tablet Take 1 tablet by mouth daily as needed for allergies or rhinitis. 12/08/2023 escitalopram (Lexapro) 10 MG tablet Take 1 tablet by mouth nightly. nutritional drink (Boost) liquid liquid Take 237 mL by mouth 2 times a day. 92501 mL 2 02/14/2025 5 Nutritional Supplements (isosource 1.5 Pastor/mL) 55 mL by Per J Tube route every 1 (one) hour. 67827 mL 5 01/19/2025 5 oxyCODONE (Roxicodone) 5 MG immediate release tablet Take 1 tablet by mouth every 6 hours as needed for moderate pain. 24 tablet 02/01/2025 valACYclovir (Valtrex) 1 g tablet Take 1 tablet by mouth 3 (three) times a day as needed (Flare ups). Take 1 tablet by mouth 3 times daily for 5 days as needed 06/30/2024 acetaminophen (Tylenol) 160 MG/5ML solution Take 30 mL by mouth every 6 hours as needed (mild pain (1-3 on the numeric pain scale)) for up to 10 days. 120 mL 02/06/2025 5 metoclopramide (Reglan) 10 MG tablet Take 0.5 tablets by mouth every 6 (six) hours. Take before meals and at bedtime. 60 tablet 02/01/2025 5 pantoprazole (Protonix) 40 MG EC tablet Take 1 tablet by mouth daily before breakfast. Do not crush, chew, or split. 30 tablet 1 02/01/2025 5 documented as of this encounter Plan of Treatment Upcoming Encounters Date Type Department Care Team ([facility] st Contact Info) Description 08/31/2025 8:30 AM EST Appointment [facility] Radiology [address] [place] [address] 08/31/2025 9:30 AM EST Office Visit Pav [facility] Head[facility] Ne[facility] Respiratory [address] [facility], [address]nd [place] [address] Jeffery Devine, DO [address] [facility] [address] [place] [address] documented as of this encounter Goals Goal Patient Goal Type Associated Problems Recent Progress Patient-Stated? Author Autogenerat ed Goal Care Plan Autogenerated Problem No JohnsonLeticia hurst Autogenerat ed Goal Care Plan Autogenerated Problem No Leticia Johnson documented as of this encounter Procedures Procedure Name Priority Date/Time Associated Diagnosis Comments XR CHEST 2 VIEWS Routine 02/14/2025 11:3 2 AM EDT Achalasia documented in this encounter Results * XR [...] DO IMG XR PROCEDURES Final Resul t documented in this encounter Visit Diagnoses Diagnosis Achalasia Achalasia and cardiospasm documented in this encounter Additional Health Concerns Active Problems Noted Date Diagnosed Date Autogenerated Problem 12/26/2024 Autogenerated Problem 01/11/2025 Assessment Noted Time A fall risk assessment has been complete d for the patient 02/14/2025 11:48 AM EDT A Body Mass Index follow-up plan has been documented for the patient 02/01/2025 12:51 PM EDT documented as of this encounter Care Teams Pet Food Deboner Relationship Specialty Start Date End Date Caridad Oliver, ASSISTANT PROFESSOR OF ARCHAEOLOGY [address] [place] [address] PCP - General 02/22/21 documented as of this encounter
--- OUTSIDE RECORDS SUMMARY | 2025-02-14 11:20 | XMS_ITS | Encounter Summary ---
Author Organization Healthcare Address [address] [place] [address] Care Team Providers Care Local Company Refrigerated Truck Driver Name Role Phone BenitoCaridad Gaby JIMENES Primary Care Provider [phone] Reason for Visit * Reason Comments Follow-up Encounter Details Date Type Department Care Team ([facility] Contact Info) Description 02/14/2025 11:20 AM EDT Office Visit Pav [facility] Head[facility] Neck & Respiratory [address] , [address] [place] [address] Stephanie Ray, PA [address] [place] [address] Achalasia (Primary Dx) Social History Tobacco Use Types Packs/Day Years Used Date Smoking Tobacco: Former Cigarettes 0.5 26.5 S tarted: 1998 Smokeless Tobacco: Never Tobacco Cessation:Counseling Given: No Alcohol Use Standard Drinks/Week Comments Never 0 [...] any time in the past 12 m [facility], were you homeless or living in a intermediate (including now)? No 01/26/2025 Utilities Answer Date [...] Sign Reading Time Taken Comments Blood Pressure 123/90 02/14/2025 11:41 AM EDT Pulse 100 02/14/2025 11:41 AM EDT Temperature 36.7 C (98.1 F) 02/14/2025 11:41 AM EDT Respiratory Rate 18 02/14/2025 11:41 AM EDT Oxygen Saturation 97% 02/14/2025 11:41 AM EDT Inhaled Oxygen Concentration - - Weight 72.2 kg (159 lb 2.8 oz) 02/14/2025 11:41 AM EDT Height - - Body Mass Index 28.2 01/30/2025 12:00 PM EDT documented in this encounter Miscellaneous Notes * Progress Notes - Stephanie Ray PA - 02/14/2025 11:20 AM EDT [facility] Department of Surgery Section of Thoracic Surgery Outpatient Clinic Note Diagnosis: End stage Achalasia Procedure: Heller myotomy and Naren fundoplication 2017; Bronch, EGD, Minimally Invasive Estelita esophagectomy, Lap J tube insertion 01/25/25 Interval History: Kavita Rivera is a 54 y.o. female with PMHx GERD, End stage Achalasia s/p Heller myotomy and Naren fundoplication who is now s/p Estelita esophagectomy on 01/25/25 who presentstoday for postop follow up. She reports her dog jumped on her over the weekend and pulled on her j tube. She went to urgent care who performed an xray and told her it was still in good position. Sutures are still intact, but she is reporting a lot of sensitivity in the area. She is tolerating her jtube feeds with no issue. She is currently on a full liquid diet and denies any regurgitation, n/v,abdominal pain, dysphagia. She is moving her bowels well. She also endorses episodes of intense itchiness all over her body since coming home from the hospital. She stopped taking the oxy which was her only new medication and it has persisted. She will occasionally develop hives that will resolve spontaneously. Her PCP gave her hydroxyzine which helps temporarily. She has no fevers, chills, sob, productive cough. ROS: General: no fevers or chills, no heat or cold intolerance, no subjective weight loss HEENT: no changes in vision, no sore throat, no changes in hearing, no tinnitus, no nasal drainage CV: no chest pain, no palpitations, no lightheadedness, no PND, no orthopnea, no LE swelling, no claudication Pulm: no shortness of breath, no cough, no hemoptysis GI: see hpi Skin: no rash Neuro: no numbness, no tingling, no headache, no difficulties with speech, no gait disturbance Heme: no easy bruising, no bleeding from the gums Endo: No polyuria or polydypsia Psych: no depression or anxiety Physical exam: Visit Vitals BP (!) 123/90 (BP Location: Right arm) Pulse 100 Temp 36.7 ??C (98.1 ??F) (Oral) Wt 72.2 kg (159 lb 2.8 oz) SpO2 97% BMI 28.20 kg/m?? General: alert and oriented, appropriate Lungs: CTA B, no wheezes or rhonchi Heart: RRR, no murmurs Abdomen: soft NT/ND, normal bowel sounds Lymph nodes: no palpable supraclavicular or cervical adenopathy Extremities: no peripheral edema Skin: no rash, no cyanosis and warm to touch Psychiatric: oriented to person/place/time and normal mood/affect Incisions: healing well; chiqui removed from cervical incision. Chest tube site sutures removed. Imaging: CXR: no significant ptx, effusion, consolidation Additional Testing: None Assessment and Plan: Kavita Rivera is a 54 y.o. female who is s/p Estelita esophagectomy for endstage Achalasia on 01/25/25. She is currently on continuous j tube feeds and FLD and tolerating with no issue. Will advance to mechanical soft diet x 2 weeks and wean off j tube feeds over the next week. J tube site and sutures intact, she is likely just having some discomfort/irritation from her dog pulling on it. Could consider removal next week if tolerating PO diet and it is still causing pain. We have reviewed medications and she denies any new substances that could be causing her intermittent hives and itching. She had some mild inflammation around her chiqui in her cervical incision...possibly some systemic reaction from that? They were removed today in clinic. She will continue the hydroxyzine PRN and instructed to avoid steroids. She will return to clinic on 03/02 and remain on mechanical soft diet until that time. Dieticians saw patient in clinic to review diet. Call with any questions or concerns. Images and pathology reviewed and discussed with the patient at today's visit and all questions answered. Patient will return to clinic in 2 weeks with no imaging needed. The patient understands thisplan and will call our office for any additional questions or concerns. IKE Mills 02/14/25 11:58 AM documented in this encounter Plan of Treatment Upcoming Encounters Date Type Department Care Team (Late st Contact Info) Description 08/31/2025 8:30 AM EST Appointment [facility] Radiology [address] [place] [address] 08/31/2025 9:30 AM EST Office Visit Pav CC Head, Neck & Respiratory [address] [facility], 2nd [place] [address] Jeffery Devine, DO [address] [facility] [address] [place] [address] documented as of this encounter Goals Goal Patient Goal Type Associated Problems Recent Progress Patient-Stated? Author Autogenerat ed Goal Care Plan Autogenerated Problem No JohnsonLeticia Autogenerat ed Goal Care Plan Autogenerated Problem No JohnsonLeticia documented as of this encounter Visit Diagnoses Diagnosis Achalasia- Primary Achalasia and cardiospasm documented in this encounter Additional Health Concerns Active Problems Noted Date Diagnosed Date Autogenerated Problem 12/26/2024 Autogenerated Problem 01/11/2025 Assessment Noted Time A fall risk assessment has been complete d for the patient 02/14/2025 11:48 AM EDT A Body Mass Index follow-up plan has been documented for the patient 02/01/2025 12:51 PM EDT documented as of this encounter Care Teams Local Company Refrigerated Truck Driver Relationship Specialty Start Date End Date Caridad Oliver APRN [address] [place] [address] PCP - General 02/22/21 documented as of this encounter
--- OUTSIDE RECORDS SUMMARY | 2025-02-21 11:15 | XMS_ITS | Encounter Summary ---
Author Organization Healthcare Address [address] [place] [address] Care Team Providers Care Transportation Engineering Technician Name Role Phone BenitoCaridad Gaby JIMENES Primary Care Provider [phone] Reason for Visit * Reason Comments Follow-up Encounter Details Date Type Department Care Team ([facility] Contact Info) Description 02/21/2025 11:15 AM EDT Office Visit Pav CC Head, Neck & Respiratory [address] , [address] [place] [address] Stephanie Ray, PA [address] [place] [address] Achalasia (Primary Dx) Social History Tobacco Use Types Packs/Day Years Used Date Smoking Tobacco: Former Cigarettes 0.5 26.5 S tarted: 1998 Smokeless Tobacco: Never Tobacco Cessation:Counseling Given: Not Answered Alcohol Use Standard Drinks/Week Comments Never 0 [...] any time in the past 12 m [facility], were you homeless or living in [...] Sign Reading Time Taken Comments Blood Pressure 113/81 02/21/2025 10:54 AM EDT Pulse 76 02/21/2025 10:54 AM EDT Temperature 36.6 C (97.9 F) 02/21/2025 10:54 AM EDT Respiratory Rate 16 02/21/2025 10:5 4 AM EDT Oxygen Saturation 97% 02/21/2025 10: 54 AM EDT Inhaled Oxygen Concentration - - Weight 72.9 kg (160 lb 11.5 oz) 025 10:54 AM EDT Height - - Body Mass Index 28.48 01/30/2025 12:00 PM EDT documented in this encounter Miscellaneous Notes * Progress Notes - Stephanie Ray PA - 02/21/2025 11:15 AM EDT Images from the original note were not included. [facility] Department of Surgery Section of [...] Estelita esophagectomy on 01/25/25 who presentstoday for j tube removal. She was seen last week after her dog jumped on her and pulled on the tube. The sutures were still intact, but she had some local irritation causing discomfort. Her diet was a dvanced to mechanical soft and she was instructed to titrate off tube feeds. She is tolerating a mechanical soft diet with no issue. No dysphagia, regurgitation, n/v. Her j tube is still very tender and she would like this removed. She also endorsed significant itching all over her body at last visit. We could not identify a direct source, but she was noted to have some local irritation at her cervical incision that was closed with chiqui. They were removed and itching resolved the next day. ROS: General: no fevers or chills, no heat or cold intolerance, no subjective weight loss HEENT: no changes in vision, no sore throat, no changes in hearing, no tinnitus, no nasal drainage CV: no chest pain, no palpitations, no lightheadedness, no PND, no orthopnea, no LE swelling, no claudication Pulm: no shortness of breath, no cough, no hemoptysis GI: See HPI Skin: no rash Neuro: no numbness, no tingling, no headache, no difficulties with speech, no gait disturbance Heme: no easy bruising, no bleeding from the gums Endo: No polyuria or polydypsia Psych: no depression or anxiety Physical exam: Visit Vitals BP 113/81 (BP Location: Left arm, Patient Position: Sitting) Pulse 76 Temp 36.6 ??C (97.9 ??F) (Oral) Wt 72.9 kg (160 lb 11.5 oz) SpO2 97% BMI 28.48 kg/m?? General: alert and oriented, appropriate Lungs: CTA B, no wheezes or rhonchi Heart: RRR, no murmurs Abdomen: soft NT/ND, normal bowel sounds Lymph nodes: no palpable supraclavicular or cervical adenopathy Extremities: no peripheral edema Skin: no rash, no cyanosis and warm to touch Psychiatric: oriented to person/place/time and normal mood/affect Incisions: healing well Imaging: none Additional Testing: none Assessment and Plan: Kavita Rivera is a 54 y.o. female who is s/p Estelita esophagectomy for endstage Achalasia on 01/25/25. She has been tolerating mechanical soft diet x 1 week and titrated off tube feeds. She continues to have discomfort around sutures on j tube so it was removed successfully today now that she is 4 weeks postop. Dressing instructions provided. She will continue mechanical soft diet until follow up next week with Dr. Devine. Call with any issues in the meantime. Images and pathology reviewed and discussed with the patient at today's visit and all questions answered. Patient will return to clinic on 03/02 with no imaging needed. The patient understands this plan and will call our office for any additional questions or concerns. IKE Mills 02/21/25 11:16 AM documented in this encounter Plan of Treatment Upcoming Encounters Date Type Department Care Team (Late st Contact Info) Description 08/31/2025 8:30 AM EST Appointment [facility] Radiology [address] [place] [address] 08/31/2025 9:30 AM EST Office Visit Pav CC Head, Neck & Respiratory [address] [facility], [address]nd [place] [address] Jeffery Devine, [address] [address] documented as of this encounter Goals Goal Patient Goal Type Associated Problems Recent Progress Patient-Stated? Author Autogenerat ed Goal Care Plan Autogenerated Problem No Leticia Johnson Autogenerat ed Goal Care Plan Autogenerated Problem No Leticia Johnson documented as of this encounter Visit Diagnoses Diagnosis Achalasia- Primary Achalasia and cardiospasm documented in this encounter Additional Health Concerns Active Problems Noted Date Diagnosed Date Autogenerated Problem 12/26/2024 Autogenerated Problem 01/11/2025 Assessment Noted Time A fall risk assessment has been complete d for the patient 02/21/2025 10:54 AM EDT A Body Mass Index follow-up plan has been documented for the patient 02/01/2025 12:51 PM EDT documented as of this encounter Care Teams Transportation Engineering Technician Relationship Specialty Start Date End Date Caridad Oliver APRN [address] [place] [address] PCP - General 02/22/21 documented as of this encounter
--- OUTSIDE RECORDS SUMMARY | 2025-03-02 10:30 | XMS_ITS | Encounter Summary ---
Author Organization Healthcare Address [address] [place] [address] Care Team Providers Care Technical Support Manager Name Role Phone Benito Caridad Gaby JIMENES Primary Care Provider [phone] Reason for Visit * Reason Comments Follow-up Encounter Details Date Type Department Care Team ([facility] st Contact Info) Description 03/02/2025 10:30 AM EDT Office Visit [facility] Head[facility] Neck [facility] Respiratory 800 [facility], 2nd [place] [address] Jeffery Devine, DO [address] [place] [address] Achalasia (Primary Dx) Social History Tobacco Use [...] any time in the past 12 m [facility], were you homeless or living in a halfway (including now)? No 01/26/2025 Utilities Answer Date [...] Sign Reading Time Taken Comments Blood Pressure 116/81 03/02/2025 10:01 AM EDT Pulse 69 03/02/2025 10:01 AM EDT Temperature 36.7 C (98.1 F) 03/02/2025 10:01 AM EDT Respiratory Rate 16 03/02/2025 10:01 AM EDT Oxygen Saturation 97% 03/02/2025 10:01 AM EDT Inhaled Oxygen Concentration - - Weight 71.8 kg (158 lb 4.6 oz) 03/02/2025 10:01 AM EDT Height 160 cm (5' 2.99 ) 03/02/2025 10:01 AM EDT Body Mass Index 28.05 03/02/2025 10:01 AM EDT documented in this encounter Miscellaneous Notes * Progress Notes - Ramses Morley MD - 03/02/2025 10:30 AM EDT Images from the original note were not included. [facility] Department of Surgery Section of Thoracic Surgery Outpatient Clinic Note Diagnosis: End stage Achalasia Procedure: Heller myotomy and Naren fundoplication 2016; Bronch, EGD, Minimally Invasive Estelita esophagectomy, Lap J tube insertion 01/25/25 Interval History: Kavita Rivera is a 54 y.o. female with PMHx GERD, End stage Achalasia s/p Heller myotomy and Naren fundoplication who is now s/p Estelita esophagectomy on 01/25/25 who presentstoday for follow up. Patient was seen on 02/21 where she was tolerating a mechanical soft diet and titrated off tube feeds therefore the J tube was removed. Since last visit, patient continues to recover well. She has some occasional dysphagia to dry foods. Overall, she feels much improved from prior to surgery. ROS: General: no fevers or chills, no heat or cold intolerance, no subjective weight loss HEENT: no changes in vision, no sore throat, no changes in hearing, no tinnitus, no nasal drainage CV: no chest pain, no palpitations, no lightheadedness, no PND, no orthopnea, no LE swelling, no claudication Pulm: no shortness of breath, no cough, no hemoptysis GI: no nausea, no vomiting, no abdominal pain, no constipation, no diarrhea, no melenal, no hematochezia, no dysphagia, no heartburn Skin: no rash Neuro: no numbness, no tingling, no headache, no difficulties with speech, no gait disturbance Heme: no easy bruising, no bleeding from the gums Endo: No polyuria or polydypsia Psych: no depression or anxiety Physical exam: Visit Vitals BP 116/81 (BP Location: Left arm, Patient Position: Sitting, BP Cuff Size: Adult long) Pulse 69 Temp 36.7 ??C (98.1 ??F) (Oral) Ht 1.6 m (5' 2.99 ) Wt 71.8 kg (158 lb 4.6 oz) SpO2 97% BMI 28.05 kg/m?? General: alert and oriented, appropriate Lungs: CTA B, no wheezes or rhonchi Heart: RRR, no murmurs Abdomen: soft NT/ND, normal bowel sounds Lymph nodes: no palpable supraclavicular or cervical adenopathy Extremities: no peripheral edema Skin: no rash, no cyanosis and warm to touch Psychiatric: oriented to person/place/time and normal mood/affect Incisions: healing well Imaging: N/A Additional Testing: N/A Assessment and Plan: Kavita Rivera is a 54 y.o. female with PMHx GERD, End stage Achalasia s/p Heller myotomy and Naren fundoplication who is now s/p Estelita esophagectomy on 01/25/25 who presents today for follow up. Patient recovering well post operatively. She continues to tolerate mechanical soft diet with occasional dysphagia. We discussed advancing her diet to regular as tolerated. Patient understanding, all questions answered. Images and pathology reviewed and discussed with the patient at today's visit and all questions answered. Patient will return to clinic in 6 months with no imaging needed. The patient understands this plan and will call our office for any additional questions or concerns. Ramses Morley MD 03/02/25 10:13 AM Cosigned by Jeffery Devine DO at 03/03/2025 11:25 AM EDT Associated attestation - Jeffery Devine DO - 03/03/2025 11:25 AM EDT I saw and evaluated the patient with the resident/fellow. I discussed the case with the resident/fellow and agree with the findings and plan as documented. documented in this encounter Plan of Treatment Upcoming Encounters Date Type Department Care Team ([facility] st Contact Info) Description 08/31/2025 8:30 AM EST Appointment PAV H Radiology [address] [place] [address] 08/31/2025 9:30 AM EST Office Visit [facility] Neck [facility] Respiratory 800 [facility], [address]nd [place] [address] Jeffery Devine, DO [address] [address] Scheduled Orders Name Type Priority Associated Diagnoses Orde r Schedule XR Chest 2 Views Imaging Routine Achalasia Expected: 09/02/2025 (Approximate), Expires: 09/02/2026 documented as of this encounter Goals Goal Patient Goal Type Associated Problems Recent Progress Patient-Stated? Author Autogenerat ed Goal Care Plan Autogenerated Problem No JohnsonLeticia hurst Autogenerat ed Goal Care Plan Autogenerated Problem No Leticia oJhnson documented as of this encounter Visit Diagnoses Diagnosis Achalasia- Primary Achalasia and cardiospasm documented in this encounter Additional Health Concerns Active Problems Noted Date Diagnosed Date Autogenerated Problem 12/26/2024 Autogenerated Problem 01/11/2025 Assessment Noted Time A fall risk assessment has been complete d for the patient 03/02/2025 10:01 AM EDT A Body Mass Index follow-up plan has been documented for the patient 03/03/2025 11:28 AM EDT documented as of this encounter Care Teams Technical Support Manager Relationship Specialty Start Date End Date Caridad Oliver APRN [address] [place] [address] PCP - General 02/22/21 documented as of this encounter
--- OUTSIDE RECORDS SUMMARY | 2025-03-16 08:21 | XMS_ITS ---
Author Organization Tyrel Mejía IM PE D SIMA Address [address] [facility] 36 [facility] [address] [place] [address] Care Team Providers Care Chair Springer Name Role Phone Margarita Guerra Primary Care Provider REASON FOR VISIT lab work Encounters Encounter Location Date Provider Diagnosis Tyrel Mejía IM [facility]ED [facility]A [address] [facility] [address] [place], [place] [address] 03/16/2025 Margarita Guerra Chronic urticaria L50.8 Assessments [...] 03/16/2025 COMPLEMENT C3 03/16/2025 COMPLEMENT C4 03/16/2025 Next Appt Details Provider Name:Leonora Jessi Irving ll, 04/05/2025 12:30:00 PM, [address] [facility], [address], [place], [address], Progress Notes * Kavita GARCIA LDOB:[birth year] (54 yo F)Acc No.[id number]:03/16/2025 Patient: Sunitha DUMONTKavita BUNDY :1970 A ge:54 Y S ex:Female Address:[address] [place] [address], [place] [address] Subjective: * Chief Complaints: * L ab work * Medical History: * Surgical History: * Hospitalization/Major Diagno stic Procedure: * Medications: Objective: * Vitals: * Physical Examination: Assessment: * Assessment: 1. C hronic urticaria - L50.8 (Primary) Plan: * Treatment: * Procedure Codes: * true * Date: Generated for Kaushik gray/Earle/Elmeritting on: 0 04/05/2025 12:23 PM EDT
--- OUTSIDE RECORDS SUMMARY | 2025-04-04 11:45 | XMS_ITS ---
Author Organization [facility] Address [address] [place] [address] Care Team Providers Care Sales Apprentice Name Role Phone Margarita Guerra Primary Care Provider [phone] Rogerio Mays Unavailable [phone] REASON FOR VISIT lab results Encounters Encounter Location Date Provider Diagnosis [place] [address] [address] 04/04/2025 Rogerio Mays Plan Of Treatment Next Appt Details Provider Name:Leonora Irving , 04/05/2025 12:30:00 PM, [address], [place], [place], [address], Progress Notes * Kavita GARCIA LDOB:[birth year] (54 yo F)Acc No.[id number]:04/04/2025 Progress Notes Patient: Grisel BURNETTsherly Meena Provider: Sunitha Mays MD :1970 A ge:54 Y S ex:Female Date:04/04/2025 Address:[address] [place] [address] Gaby ETIENNE NA-[id number] Pcp:Margarita Guerra Subjective: * Chief Complaints: * 1 . Lab results. * Medical History: Objective: * Vitals: Assessment: Plan: * Treatment: * * Electronic signature of Karlos Mays MD FAAP on 04/05/2025 at 12:24 PM EDT Sign off status: Pending * Provider: Suintha Mays MD Date: 0 04/04/2025 Generated for Kaushik gray/Earle/Jong on: 0 04/05/2025 12:24 PM EDT
--- OUTSIDE RECORDS SUMMARY | 2025-04-05 12:23 | XMS_ITS | Encounter Summary ---
Author Organization Healthcare Address [address] [place] [address] Care Team Providers Care Chargemaster Analyst Name Role Phone BenitoCaridad Gaby JIMENES Primary Care Provider [phone] Encounter Details Date Type Department Care Team [...] any time in the past 12 m [facility], were you homeless or living in a [...] AM EST Appointment PAV H Radiology [address] [place] [address] 08/31/2025 9:30 AM EST Office Visit Pav [facility] Head[facility] Neck & Respiratory 800 [facility], 2nd [place] [address] Jeffery Devine, DO 800 [facility] 1st [place] [address] documented as of this encounter Goals Goal [...] documented as of this encounter Care Teams Chargemaster Analyst Relationship Specialty Start Date End Date Caridad Oliver APRN [address] [place] [address] PCP - General 02/22/21 documented as of this encounter
--- OUTSIDE RECORDS SUMMARY | 2025-04-05 12:23 | XMS_ITS | Encounter Summary ---
Author Organization Healthcare Address [address] [place] [address] Care Team Providers Care Change Release Manager Name Role Phone BenitoCaridad Gaby JIMENES Primary Care Provider [phone] Encounter Details Date Type Department Care Team (Late st Contact Info) Description 03/17/2025 Telephone Pav [facility] Neck [facility] Respiratory [address] , [address] [place] [address] Corie West RN [facility] Social History Tobacco [...] any time in the past 12 m [facility], were you homeless or living in [...] AM EST Appointment PAV H Radiology 800 [place] [address] 08/31/2025 9:30 AM EST Office Visit Pav [facility] Head[facility] Neck & Respiratory 800 [facility], 2nd [place] [address] Jeffery Devine, DO 800 [facility] 1[address] [place] [address] documented as of this encounter Goals Goal [...] documented as of this encounter Care Teams Change Release Manager Relationship Specialty Start Date End Date Caridad Oliver APRN [address] [place] [address] PCP - General 02/22/21 documented as of this encounter
--- OUTSIDE RECORDS SUMMARY | 2025-04-05 12:23 | XMS_ITS | Encounter Summary ---
Author Organization Healthcare Address [address] [place] [address] Care Team Providers Care Last Turner Name Role Phone BenitoCaridad Gaby JIMENES Primary Care Provider [phone] Encounter Details Date Type Department Care Team [...] any time in the past 12 m [facility], were you homeless or living in a [...] AM EST Appointment PAV H Radiology [address] [place] [address] 08/31/2025 9:30 AM EST Office Visit Pav [facility] Head, Neck & Respiratory 800 [facility], 2nd [place] [address] Jeffery Devine, DO 800 [facility] [address]st [place] [address] documented as of this encounter Goals Goal [...] documented as of this encounter Care Teams Last Turner Relationship Specialty Start Date End Date Caridad Oliver APRN [address] [place] [address] PCP - General 02/22/21 documented as of this encounter
--- OUTSIDE RECORDS SUMMARY | 2025-04-05 12:23 | XMS_ITS | Encounter Summary ---
Author Organization Healthcare Address [address] [place] [address] Care Team Providers Care Compressor Mechanic Name Role Phone BenitoCaridad Gaby JIMENES Primary Care Provider [phone] Encounter Details Date Type Department Care Team ([facility] st Contact Info) Description 02/14/2025 Nutrition Pav [facility] Head[facility] Neck & Respiratory [address] , 2nd [place] [address] Stephy Devine, LOWELL Social History Tobacco Use [...] NUTRITION NOTE Patient Information Name: Kavita Rivera [id number] : 1970 Date of Service: 02/14/2025 Visit Type: Nutrition consult Referral source: [facility] Kavita Rivera is a 54 y.o. female who was referred to [facility] dietitian for oncology nutritioncounseling. Diagnosis Cancer Staging [...] Patient referred to [facility] by [facility] Dietitian. RD contact information was provided and pt was encouraged to contact with additional nutrition-related questions/concerns PRN. documented in this encounter Plan of Treatment Upcoming Encounters Date Type Department Care Team ([facility] st Contact Info) Description 08/31/2025 8:30 AM EST Appointment PAV H Radiology [address] [place] [address] 08/31/2025 9:30 AM EST Office Visit Pav CC Head, Neck & Respiratory 800 [facility], 2nd [place] [address] Jeffery Devine, DO 800 [facility] 1st [place] [address] documented as of this encounter Goals Goal [...] documented as of this encounter Care Teams Compressor Mechanic Relationship Specialty Start Date End Date Caridad Oliver APRN [address] [place], [place] [id number] PCP - General 02/22/21 documented as of this encounter
--- NOTE | 2025-04-05 12:24 | XR_ITS ---
FINAL REPORT CLINICAL HISTORY: ACUTE BRONCHITIS COMPARISON: 01/03/2025 FINDINGS: No acute pulmonary density is evident. There is no evidence of effusion or other pleural disease. There is a low hiatal hernia, similar to prior. The cardiac silhouette is unremarkable. IMPRESSION: Stable large hiatal hernia. Reviewed, Interpreted and Dictated by Dino Stratton MD Transcribed by Sirisha Orr Authenticated and [facility]
--- OUTSIDE RECORDS SUMMARY | 2025-04-05 12:24 | XMS_ITS | Patient Health Record ---
Author Organization [facility] Address [address] [facility] [address] [place] [address] Care Team Providers Care Caltrans Equipment Operator Name Role Phone Mari Margarita Primary Care Provider Rogerio Mays Unavailable [phone] Leonora Hansen Unavailable [phone] Leonora Casiano Unavailable [phone] Migration, Provider Unavailable Unavailable Allergies Allergen (clinical drug ingredient) Drug/Non Drug Allergy documented on EMR Reaction Allergy Type Onset Date Status codeine Codeine Unknown Drug Allergy Active oxycodone oxyCODONE hives Drug Allergy Active Results Component Value Reference Range Notes M-MOHTI Comprehensive Panel Reviewed date:03/27/2025 09:39:57 AM Interpretation: Performing Lab: Notes/Report: DNADSAB <1 0-9 IU/mL Negative <5 Equivocal 5 - 9 Positive >9 ANTIRNP <0.2 0.0-0.9 AI ASMITH <0.2 0.0-0.9 AI ISI54TN. <0.2 0.0-0.9 AI SSA <0.2 0.0-0.9 AI SSB <0.2 0.0-0.9 AI ACHROM <0.2 0.0-0.9 AI JO1 <0.2 0.0-0.9 AI ANTICENT <0.2 0.0-0.9 AI ANASB Comment . Autoantibody Disease Association -- Condition Frequency --------- Antinuclear Antibody, SLE, mixed connective Direct (MOHIT-D) tissue diseases --------- dsDNA SLE 40 - 60% --------- Chromatin Drug induced SLE 90% SLE 48 - 97% --------- SSA (Ro) SLE 25 - 35% Sjogren's Syndrome 40 - 70% Lupus 100% --------- SSB (La) SLE 10% Sjogren's Syndrome 30% --------- Sm (anti-Sarmiento) SLE 15 - 30% --------- TOOL CRIB MANAGER Mixed Connective Tissue Disease 95% (U1 nRNP, SLE 30 - 50% anti-ribonucleoprotein) Polymyositis and/or Dermatomyositis 20% --------- Scl-70 (antiDNA Scleroderma (diffuse) 20 - 35% topoisomerase) Crest 13% --------- Yoko-1 Polymyositis and/or Dermatomyositis 20 - 40% --------- Centromere B Scleroderma - Crest variant 80% Performed at: [facility] [address] [id number] Solutions Developer: Emiliano Toscano PhD, Phone: [phone] M-Complement, Total (CH50) Reviewed date:03/27/2025 09:39:36 AM Interpretation: Performing Lab: Notes/Report: CH50 >60 >41 U/mL Age Male Female 1 - 30 days Not Estab. Not Estab. 31 days - 6 months >32 >20 7 months - 17 years >39 >39 >17 years >41 >41 NOTE: The adult ( >17 years ) reference interval range is used to flag abnormals on this report. If the patient is 17 years old or younger, use the table above to determine out of range values. Performed at: [facility] [place] [id number] [place], [place] [id number] Solutions Developer: Emiliano Toscano PhD, Phone: [phone] M-Complement C4 Reviewed date:03/27/2025 09:40:11 AM Interpretation: Performing Lab: Notes/Report: C4 21 12-38 mg/dL M-Complement C3 Reviewed date:03/27/2025 09:40:30 AM Interpretation: Performing Lab: Notes/Report: C3 127 82-167 mg/dL Performed at: [facility] [id number] Solutions Developer: Emiliano Toscano PhD, Phone: [phone] X ray : Chest Reviewed date:10/17/2024 11:58:56 AM Interpretation: Performing Lab: Notes/Report: M-Magnesium Reviewed date:10/14/2024 03:28:08 PM Interpretation: Performing Lab: Notes/Report: MG 2.2 1.6-2.3 mg/dl M-Comprehensive Metabolic Pa shai Reviewed date:10/14/2024 03:28:08 [...] AGRATIO 1.5 1.1-1.8 ALP 84 38-126 U/L M-Complete Blood Count Auto Diff Reviewed date:10/14/2024 [...] 0.0 0.0-0.4 K/mm3 BA# 0.0 0-0.2 K/mm3 Mammogram : Bilateral Reviewed date:03/29/2025 04:48:50 PM Interpretation: Performing Lab: Notes/Report: X ray : Chest Reviewed date:01/05/2025 02:31:14 PM Interpretation: Performing Lab: Notes/Report: Rapid Covid/Flu A-B Combo Reviewed date:01/03/2025 01:33:10 PM Interpretation: Performing Lab: Notes/Report: Rapid Covid neg Flu A neg Flu B neg Rapid Covid/Flu A-B Combo Reviewed date:10/03/2024 06:22:04 PM Interpretation: Performing Lab: Notes/Report: Rapid Covid neg Flu A pos Flu B neg G-[id number] Protein Reviewed date:03/27/2025 09:41:06 AM Interpretation: Performing Lab: Notes/Report: CRP 1.1 0-4 mg/L M-Comprehensive Metabolic Pa shai Reviewed date:03/27/2025 09:41:18 AM Interpretation: Performing Lab: Notes/Report: NA 140 136-145 mmol/L K 4.1 3.5-5.1 mmoL/L CL 112 98-107 mmol/L CO2 25 22.0-30.0 mmol/L GAP 7.1 5-15 mEq/L BUN 12 7-17 mg/dl CREATT 0.70 0.52-1.04 mg/dl GFRAA 106 >60 ML/MIN EGFR 88 >60 ml/min GLU 96 74-100 mg/dl CA 10.5 8.4-10.2 mg/dl BILIT 1.1 0.2-1.3 mg/dl AST 21 14-36 U/L ALT 14 12-78 U/L TP 6.4 6.3-8.2 g/dl ALB 4.0 3.5-5.0 g/dl GLOB 2.4 1.3-3.2 g/dL AGRATIO 1.7 1.1-1.8 ALP 91 38-126 U/L M-Erythrocyte Sedimentation Rate Reviewed date:03/27/2025 09:41:34 AM Interpretation: Performing Lab: Notes/Report: ESR 16 0-30 mm/hr M-Complete Blood Count Auto Diff Reviewed date:03/27/2025 09:41:49 AM Interpretation: Performing Lab: Notes/Report: WBC 3.9 4.8-10.8 [...] 0 IG% 0.3 NRBC# 0 IG# 0.01 X ray : KUB Reviewed date:02/14/2025 03:55:01 PM Interpretation: Performing Lab: Notes/Report: X ray : KUB Reviewed date:02/14/2025 03:55:01 PM Interpretation: Performing Lab: Notes/Report: M-BUN & Creatinine Reviewed date:02/13/2025 09:36:29 AM Interpretation: Performing Lab: Notes/Report: BUN 21 7-17 mg/dl CREATT 0.70 0.52-1.04 mg/dl GFRAA 106 >60 ML/MIN EGFR 88 >60 ml/min Rapid Covid/Flu A-B Combo Reviewed date:07/29/2024 01:19:43 PM Interpretation: Performing Lab: Notes/Report: Rapid Covid neg Flu A neg Flu B neg Rapid Covid/Flu A-B Combo Reviewed date:09/13/2024 09:21:23 PM Interpretation: Performing Lab: Notes/Report: Rapid Covid neg Flu A neg Flu B neg Rapid Covid/Flu A-B Combo Reviewed date:11/25/2024 03:27:14 PM Interpretation: Performing Lab: Notes/Report: Rapid Covid neg Flu A neg Flu B neg Medications Medication SIG (Take, Route, Frequency, Duration) Notes Start Date End Date Status Benadryl Allergy 25 MG as directed Orally Active B-12 2500 MCG 1 tab(s) sublingually once a day; Duration: 30 day(s) Active ALBUTEROL (EQV-PROVENTIL HFA) 90 MCG/INH 1 INHALED EVERY 4 HOURS PRN; Duration: 30 DAYS *Please review for potential replacement for e-prescription and drug interaction check* 12/25/2022 Active Famotidine 40 MG 1 tablet Orally Once a day; Duration: 90 days Active hydrOXYzine HCl 25 MG 1 tablet as needed Orally 3 times a day; Duration: 90 days Active Flonase Allergy Relief 50 MCG/ACT 2 spray(s) intranasally once a day; Duration: 30 days 07/13/2021 Active valACYclovir HCl 500 MG 1 tab(s) orally 3 times a day; Duration: 5 days prn 10/03/2024 Active Amoxicillin-Pot Clavulanate 875-125 MG 1 tablet Orally every 12 hrs; Duration: 7 days 04/05/2025 Active Lexapro 10 MG 1 tab(s) orally once a day; Duration: 90 days Active Problems Problem Type SNOMED Code ICD Code Onset Dates Problem Status W/U Status Risk Notes Problem Osteoarthritis of knee (982964316) Unilateral primary osteoarthritis, left knee (M17.12) Active confirmed Problem Anxiety (48784847) Anxiety (F41.9) Active confi rmed Problem Hypertriglyceridemia (653343247) Hypertriglyceridemia (E78.1) Active confirmed Problem Gastroesophageal reflux disease (386751367) GERD without esophagitis (K21.9) Active confirmed Problem Seasonal allergy (517271630) Seasonal allergies (J30.2) Active confirmed Problem Gastroesophageal reflux disease with esophagitis (disorder) (101118679) GERD with esophagitis (K21.0) Active confirmed Problem Morbid obesity (067314057) Morbid obesity due to excess calories (E66.01) Active confirmed Problem Chronic insomnia (440189680) Chronic insomnia (F51.04) Active confirmed Problem Fever blister (6271567) Fever blister (B00.1) Active confirmed Problem Dysthymia (00813410) Dysthymia (F34.1) Active c onfirmed Problem Rosacea (232190760) Rosacea (L71.9) Active conf irmed Problem Endometriosis (285565867) Endometriosis (N80.9) Active confirmed Problem Sciatica (41243581) Acute left-s ided low back pain with left-sided sciatica (M54.42) Active confirmed Problem Tonsillith (4918042) Tonsillith (J35.8) Active confirmed Problem Methicillin resistan t Staphylococcus aureus (682813420) MRSA (methicillin resistant Staphylococcus aureus) (A49.02) Active confirmed Problem Carpal tunnel syndrome (58519097) Carpal tunnel syndrome on both sides (G56.03) Active confirmed Problem Surgical menopause (919789468) Surgical menopause (E89.40) Active confirmed Problem Carpal tunnel syndrome (55699694) Carpal tunnel syndrome, bilateral (G56.03) Active confirmed Problem Esophageal dysphagia (28836209) Esophageal dysphagia (R13.10) Active confirmed Problem Allergic rhinitis (12294353) Acute allergic rhinitis (J30.9) Active confirmed Problem Gastrostomy present (655461598) S/P percutaneous endoscopic gastrostomy (PEG) tube placement (Z93.1) Active confirmed Problem Achalasia (04578926) Achalasia (K22.0) Active c onfirmed Problem Obese class I (finding) (448610951783781) Class 1 obesity (E66.9) Active confirmed Problem Spondylosis (6996044) Spondylosis (M47.9) Active confirmed Problem Jejunostomy tube, device (physical object) (026418367) Jejunostomy tube present (Z93.4) Active confirmed Problem Laryngeal stridor (095407033) 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) Active confirmed Vital Signs Heart Rate 82 /min 03/02/2025 Temperature 98.4 degrees Fahrenheit 03/02/2025 Blood pressure diastolic 80 mm Hg 03/02/2025 Height 63 in 03/02/2025 Blood pressure systolic 122 mm Hg 03/02/2025 Weight 158 lbs 03/02/2025 BMI 27.99 kg/m2 03/02/2025 Encounters Encounter Location Date Provider Diagnosis [facility] [address] [place], [place] [address] 01/14/2025 Provider Migration [facility] [place] [address] [address] 06/23/2024 Rogerio Mays Allergic conjunctivitis, bilateral H10.13 [facility] [address] [address] 07/29/2024 Margarita [place] Cough R05.9 and Viral URI J06.9 [facility] [address] [place], [place] [address] 08/13/2024 Margarita [place] COVID-19 U07.1 [facility] [address] [address] 09/13/2024 Rogeriomichael Mays Acute cough R05.1 and Acute non-recurrent maxillary sinusitis J01.00 [facility] [address] [place] [address] 10/03/2024 Leonora Jade Fever in adult R50.9 ; Influenza A J10.1 and Fever blister B00.1 [facility] [address] [place] [address] 10/14/2024 Rogerio Treson Subacute cough R05.2 ; Acute febrile illness R50.9 ; Other malaise R53.81 and Other fatigue R53.83 [facility] [place] [address] [address] 11/25/2024 Margarita [place] Subacute cough R05.2 and Viral URI J06.9 [facility] [address] [place] [address] 12/05/2024 Leonora Hansen Acute non-recurrent maxillary sinusitis J01.00 ; Persistent cough R05.3 and Achalasia K22.0 [facility] [address] [place] [address] 01/03/2025 Leonora Hansen Acute cough R05.1 and History of pulmonary aspiration Z87.09 [facility] [place] [address] [place] [address] 02/08/2025 Leonora Hansen Urticaria L50.9 [facility] [address] [place] [address] 02/11/2025 Margarita [place] Jejunostomy tube present Z93.4 [facility] [place] [address] [place] [address] 03/02/2025 Rogerio Besson Urticaria L50.9 [facility] [place] [address] [place] [address] 08/02/2024 Margarita Mari Screening mammogram for breast cancer Z12.31 [facility] [place] [address] [place] [address] 08/02/2024 Margarita [place] [facility] [place] [address] [place] [address] 08/19/2024 Margarita [place] [facility] [place] [address] [place] [address] 09/27/2024 Rogerio Besson [facility] [place] [address] [place] [address] 10/17/2024 Rogerio Besson Shortness of breath R06.02 and Cough in adult R05.9 [facility] [place] [address] [place] [address] 12/28/2024 Margarita [place] Fever blister B00.1 [facility] [address] [place] [address] 01/03/2025 Leonora Hansen [facility] [address] [place] [address] 03/16/2025 Margarita Guerra Visit for screening mammogram Z12.31 [facility] [address] [place] [address] 03/16/2025 Margarita Guerra Chronic urticaria L50.8 Assessments [...] CMP, ESR, CRP, C3, C4 and consider vortex operator referral 03/16/2025 Visit for screening mammogram [...] EKG : In House 01/13/2013 Physical Therapy 12/26/2020 Physical Therapy 12/26/2020 Physical Therapy 07/19/2019 Mammogram : Bilateral 08/02/2024 N-CBC with diff 08/04/2012 H-VITAMIN B12 04/25/2016 [...] C4 03/16/2025 Next Appt Details Provider Name:Leonora Bowen Aristides , 04/05/2025 12:30:00 PM, [address] [facility], [address], [place], [address], Insurance Providers Payer Name Payer Address Payer Phone Subscriber Number Group Number Insured Name Patient Relationship to Insured Coverage Start Date Coverage End Date [facility] [address] [place] [address] [id number] Kavita Rivera Self - patient is the [...] tunnel (luz elena) EGD with esophageal dilation 2016 endometriosis-cauterization 06/2018 Appendectomy 11/05/2018 rt underarm 03/2020 removal of abcess from lt hip 05/2020 esophagus stretched 01/2021 carpal tunnel surgery-lt wrist 01/2021 esophagus removed 01/25/2025 Hospitalization History Reason Date(Month/Year) - esophagus removal 01/25- above
--- OUTSIDE RECORDS SUMMARY | 2025-04-05 12:24 | XMS_ITS | Encounter Summary ---
Author Organization Healthcare Address [address] [place] [address] Care Team Providers Care Secondary Connector Armature Name Role Phone Benito Caridad Gaby JIMENES Primary Care Provider Encounter Details Date Type Department Care Team ([facility] st Contact Info) Description 02/14/2025 Telephone Pav CC Head, Neck & Respiratory [address] [facility], [address]nd [place] [address] Jeffery Devine, DO [address] [facility] 1[address] [place] [address] Social History Tobacco Use Types Packs/Day Years [...] time in the past [address] [facility], were you homeless or living [...] optimal time of day to reach caller: [phone] Note: Please do not reply to this message. Follow-up communication and further actions as a result of this message need to be communicated with the patient directly, if the patient is not active onMyChart. If the patient is active on MyChart, they will receive notification of the communication/outcome via [employer]. documented in this encounter Plan of Treatment Upcoming Encounters Date Type Department Care Team ([facility] st Contact Info) Description 08/31/2025 8:30 AM EST Appointment [facility] H Radiology [address] [place] [address] 08/31/2025 9:30 AM EST Office Visit Pav [facility] Head, Neck & Respiratory [address] [facility], [address]nd [place] [address] Jeffery Devine, DO [address] [facility] [address] [place] [address] documented as of this encounter Goals Goal Patient Goal Type Associated Problems Recent Progress Patient-Stated? Author Autogenerat ed Goal Care Plan Autogenerated Problem No JohnsonLeticia husrt Autogenerat ed Goal Care Plan Autogenerated Problem [...] documented as of this encounter Care Teams Secondary Connector Armature Relationship Specialty Start Date End Date Caridad Oliver, INTAKE MANAGER [address] [place] [address] PCP - General 02/22/21 documented as of this encounter
--- OUTSIDE RECORDS SUMMARY | 2025-04-05 12:24 | XMS_ITS | Referral Summary ---
Author Organization [facility] [facility] [employer] Address [address] [place] [address] Care Team Providers Care Compressor Station Chief Engineer Name Role Phone Leonora Hansen APRN Primary Care Provider + [phone] Allergies Active Allergy Reactions Criticality Noted Date [...] file Insurance BLUE CROSS/BLUE SHIELD Care Teams Compressor Station Chief Engineer Relationship Specialty Start Date End Date Leonora Hansen, CITY WELLNESS COORDINATOR [address] [place] [address] PCP - General Nurse Practitioner 06/03/23
--- OUTSIDE RECORDS SUMMARY | 2025-04-05 12:24 | XMS_ITS | Encounter Summary ---
Author Organization [employer] Address [address] [place] [address] Care Team Providers Care Welder Apprentice Name Role Phone Leonora Hansen APRN Primary Care Provider + [phone] Encounter Details Date Type Department Care Team (Late st Contact Info) Description 12/22/2018 Transcribed Document [facility] [address] [place] [address] ProviderJj MD [address], [place] [id number] Social History Tobacco Use Types Packs/Day Years [...] Source : Stated Height Entry Format : Clune Height, Feet : 5 ft(Converted to: 152 cm, 60 Inch) Height, Inches : 3 Inch(Converted to: 0 ft 3 Inch, 7.62 cm) Clinical Height : 160.02 cm Weight Source : Standing scale Weight Entry Format : Clune Clinical Dosing Weight : 83.09 kg Weight, Pounds : 182.8 lb Body Surface Area (BSA) : 1.86 m2 Body Mass Index : 32.4 kg/m2 (HI) Little Neck Body Weight : 52 kg Nadeen Yoo [...] Arrival on Unit : Ambulatory Support Person/Patient Cafeteria Helper : Yes Support Person/Pt Rep Name : Carlee Santiago Support Person/Pt Rep Contact Information : [phone] Want Family/Rep/Phys Notified of Admit : No Emergency Contact #1 : Carlee Johanna Emergency Contact #1 Emergency Contact #1 Relationship : sister Emergency Contact #2 : na Emergency Contact #2 Phone Number : gabriel Emergency Contact #2 Relationship : na Primary Language : Eritrean Preferred Communication Mode : Verbal Communication Barrier [...] Scale Risk Level : 0-24 Low Risk [place] Fall Interventions : Adequate lighting, Bed in low position, Personal items within reach, Room free of clutter/spills, Upper side-rails up, Wheels locked Barriers to Learning : None evident Individuals Taught : Patient Nadeen Yoo RN - 12/22/2018 7:22 EDT Valuables and Belongings Valuables and Belongings : Clothing Clothing : Common streetwear Clothing Disposition : With patient Nadeen Yoo RN - 12/22/2018 7:22 EDT Electronically signed by Veronica Kiser Conversion Pattern Changer And Repairer Cerner at 01/28/2023 8:15 AM CDT documented in this encounter Plan of Treatment Not on file documented as of this encounter Visit Diagnoses Not on filedocumented in this encounter Care Teams Welder Apprentice Relationship Specialty Start Date End Date Leonora Hansen APRN [address] [address] PCP - General Nurse Practitioner 06/03/23 documented as of this encounter
--- OUTSIDE RECORDS SUMMARY | 2025-04-05 12:24 | XMS_ITS | Encounter Summary ---
Author Organization Healthcare Address [address] [place] [address] Care Team Providers Care Safety Belt Installer Name Role Phone BenitoCaridad Gaby JIMENES Primary Care Provider [phone] Encounter Details Date Type Department Care Team [...] any time in the past 12 m [facility], were you homeless or living in a fdc (including now)? No 01/26/2025 Utilities Answer Date [...] AM EST Appointment [facility] [address] [place] [address] 08/31/2025 9:30 AM EST Office Visit [facility] Respiratory 800 [facility], 2nd [place] [address] Jeffery Devine, DO [address] [facility] [address] [place] [address] documented as of this encounter Goals Goal [...] documented as of this encounter Care Teams Safety Belt Installer Relationship Specialty Start Date End Date Caridad Oliver APRN [address] [place] [address] PCP - General 02/22/21 documented as of this encounter
--- OUTSIDE RECORDS SUMMARY | 2025-04-05 12:24 | XMS_ITS | Encounter Summary ---
Author Organization Healthcare Address [address] [place] [address] Care Team Providers Care Interactive Media Director Name Role Phone BenitoCaridad Gaby JIMENES Primary Care Provider [phone] Reason for Visit * Reason Onset Date Comments Med Refill 02/06/2025 Encounter Details Date Type Department Care Team (Late st Contact Info) Description 02/06/2025 Refill [facility] Head[facility] Neck & Respiratory 800 [facility], 2nd [place] [address] Jeffery Devine, DO [address] [facility] 1st [place] [address] Social History Tobacco Use Types Packs/Day Years [...] were you homeless or living in a half-way (including now)? No 01/26/2025 Utilities Answer Date [...] AM EST Appointment [facility] Radiology [address] [place] [address] 08/31/2025 9:30 AM EST Office Visit [facility] Head, Neck & Respiratory [address] [facility], 2nd [place] [address] Jeffery Devine, DO [address] [facility] [address] [place] [address] documented as of this encounter Goals Goal [...] documented as of this encounter Care Teams Interactive Media Director Relationship Specialty Start Date End Date Caridad Oliver APRN [address] [place] [address] PCP - General 02/22/21 documented as of this encounter
--- OUTSIDE RECORDS SUMMARY | 2025-04-05 12:24 | XMS_ITS | Encounter Summary ---
Author Organization Healthcare Address [address] [place] [address] Care Team Providers Care Assistant Merchandise Manager Name Role Phone Benito Caridad Gaby JIMENES Primary Care Provider [phone] Encounter Details Date Type Department Care Team ([facility] st Contact Info) Description 02/20/2025 Telephone [facility] Head, Neck & Respiratory 800 [facility], 2nd [place] [address] Jeffery Devine, DO 800 [facility] 1[address] [place] [address] Social History Tobacco Use Types Packs/Day Years [...] time in the past 12 m [facility], were you homeless or living in a retirement (including now)? No 01/26/2025 Utilities Answer Date Recorded In the past 12 months has th e [employer], gas, oil, or water company threatened to [...] and optimal time of day to reach caller:[phone] Note: Please do not reply to this [...] AM EST Appointment [facility] Radiology [address] [place] [address] 08/31/2025 9:30 AM EST Office Visit Pav [facility] Head, Neck & Respiratory 800 [facility], 2nd [place] [address] Jeffery Devine, DO 800 [facility] 1st [place] [address] documented as of this encounter Goals Goal [...] documented as of this encounter Care Teams Assistant Merchandise Manager Relationship Specialty Start Date End Date Caridad Oliver APRN [address] [place] [address] PCP - General 02/22/21 documented as of this encounter
--- OUTSIDE RECORDS SUMMARY | 2025-04-05 12:24 | XMS_ITS | Encounter Summary ---
Author Organization [employer] Address [address] [facility] [place] [address] Care Team Providers Care Health Tech Name Role Phone Leonora Hansen APRN Primary Care Provider + [phone] Encounter Details Date Type Department Care Team (Late st Contact Info) Description 12/22/2018 Transcribed Document [facility] [place] [address] [place] [address] ProviderJj MD [address] [place], [place] [address] Social History Tobacco Use Types Packs/Day Years [...] Robledo /Sex: 1970 Female Med Rec #: [id number] Physician: GARCIA SAHNI MD-GAE Financial #: [id number] Pt. Type: O Room/Bed: N/2 Admit/Disch: 12/22/18 07:03:00 - Institution: [facility] PreOp Case Times Entry 1 In Preop 12/22/18 07:12:00 Ready for Holding n/a Room Patient Ready for 12/22/18 07:44:00 Surgery Patient Out of Preop 12/22/18 07:44:00 Patient Out of n/a Holding Room [facility] PreOp Case Times Audit 12/22/18 07:44:30 Medical Equipment Sales: [id number] Modifier: [id number] 1 <*> In Preop 12/22/18 07:43:00 1 <+> Patient Out of Preop 1 <+> Patient Ready for Surgery Finalized By: Nadeen Yoo RN Document Signatures Signed By: Nadeen Yoo RN 12/22/18 07:44 documented in this encounter Plan of Treatment Not on file documented as of this encounter Visit Diagnoses Not on filedocumented in this encounter Care Teams Health Tech Relationship Specialty Start Date End Date Leonora Hansen APRN [address] [facility] [address] [place] [address] PCP - General Nurse Practitioner 06/03/23 documented as of this encounter
--- OUTSIDE RECORDS SUMMARY | 2025-04-05 12:24 | XMS_ITS | Clinical Summary ---
Author Organization [employer] Address [address] [place] [address] Care Team Providers Care Chief Credit Officer Name Role Phone Leonora Hansen APRN Primary Care Provider + [phone] Allergies Active Allergy Reactions Criticality Noted Date [...] Date Dangelo rded Speak language other than Divehi at home Not on file 10/30/2023 Want [...] 2025 Insurance BLUE CROSS/BLUE SHIELD Care Teams Chief Credit Officer Relationship Specialty Start Date End Date Leonora Hansen, ASSOCIATE ENTERTAINMENT EDITOR [address] [place] [address] PCP - General Nurse Practitioner 06/03/23
--- OUTSIDE RECORDS SUMMARY | 2025-04-05 12:24 | XMS_ITS | Encounter Summary ---
Author Organization [employer] Address [address] [facility] [place] [address] Care Team Providers Care Captain Of Guards Name Role Phone Leonora Hansen APRN Primary Care Provider + [phone] Encounter Details Date Type Department Care Team (Late st Contact Info) Description 12/22/2018 Transcribed Document [facility] [place] Medicine [address] [place] [address] ProviderJj MD [address] [place], [place] [address] Social History Tobacco Use Types Packs/Day Years [...] Robledo /Sex: 1970 Female Med Rec #: [id number] Physician: GARCIA SAHNI MD-GAE Financial #: [id number] Pt. Type: O Room/Bed: [facility]/ Admit/Disch: 12/22/18 07:03:00 - Institution: [facility] - Case Attendance Entry 1 Entry 2 Entry 3 Case Attendee GARCIA SAHNI MD-GAE Bicknell, Ashley, RN MYLENE DEL ANGEL CRNA Role Performed Surgeon/Proceduralist, Real Estate Representative, First FLOOR MANAGER/Nurse Montessori Paraprofessional First Time In 12/22/18 08:36:00 12/22/18 08:25:00 [...] Modified By: Didi Shah, RONY 12/22/18 08:47:28 [facility] [place] [facility] - Case Attendance Audit 12/22/18 08:47:28 Pricing Associate: BICBHARATEA Modifier: BICKNEA 1 <+> Time Out 1 <*> Procedure Esophagogastroduodenoscopy, Gastric Biopsy, Gastric Polypectomy 2 <+> Time Out 2 <*> Procedure Esophagogastroduodenoscopy, Gastric Biopsy, Gastric Polypectomy 3 <+> Time Out 3 <*> Procedure Esophagogastroduodenoscopy, Gastric Biopsy, Gastric Polypectomy 4 <+> Time Out 4 <*> Procedure Esophagogastroduodenoscopy, Gastric Biopsy, Gastric Polypectomy 12/22/18 08:43:21 Pricing Associate: BICBHARATEA Modifier: BICKNEA 1 <*> Procedure Esophagogastroduodenoscopy, Gastric Biopsy 2 <*> Procedure Esophagogastroduodenoscopy, Gastric Biopsy 3 <*> Procedure Esophagogastroduodenoscopy, Gastric Biopsy 4 <*> Procedure Esophagogastroduodenoscopy, Gastric Biopsy 12/22/18 08:41:18 Pricing Associate: LAZAROEA Modifier: BICKNEA 1 <*> Procedure Esophagogastroduodenoscopy 2 <*> Procedure Esophagogastroduodenoscopy 3 <*> Procedure Esophagogastroduodenoscopy 4 <*> Procedure Esophagogastroduodenoscopy 12/22/18 08:36:11 Pricing Associate: SISSYKNEA Modifier: BICKNEA 1 <*> Time In 12/22/18 08:25:00 1 <*> Procedure Esophagogastroduodenoscopy 12/22/18 08:26:03 Pricing Associate: SISSYKNEA Modifier: BICKNEA <+> 1 Procedure 2 [...] Endo - Case Times Audit 12/22/18 08:47:24 Pricing Associate: LAZAROEA Modifier: BICKNEA <+> 1 Out Room Time <+> 1 Stop Time <+> 1 Stop Time 12/22/18 08:39:14 Pricing Associate: SISSYKNEA Modifier: BICKNEA <+> 1 Start Time [...] Modified By: Didi Shah RN 12/22/18 08:26:01 [facility] Endo - Fire Risk Assessment Entry 1 [...] Modified By: Didi Shah RN 12/22/18 08:26:07 [facility] Endo - General Case Gm Mobile 1 Case Information OR Endo 02 [facility] Case Level 1 Room Verified Yes Wound Class II - Clean-Contaminated Specialty SN Gastroenterology Anesthesia Type MAC ASA Class 2 Diagnosis Preop Diagnosis gerd Postop Same As Preop No Postop Diagnosis gastric polyp, gastritis, esophagitis Last Modified By: Didi Shah RN 12/22/18 08:26:23 [facility] Endo - General Case Data Audit 12/22/18 08:48:22 Pricing Associate: LAZAROEA Modifier: BICKNEA 1 <*> Postop Diagnosis gastric polyp 12/22/18 08:47:18 Pricing Associate: RUSSELL Modifier: BICKNEA <+> 1 Postop Diagnosis [facility] Endo - Intraoperative Assessment Entry 1 Valid [...] Endo - Patient Positioning Audit 12/22/18 08:43:22 Pricing Associate: BICKNEA Modifier: BICKNEA 1 <*> Procedure Esophagogastroduodenoscopy, Gastric Biopsy 12/22/18 08:41:20 Pricing Associate: BICKNEA Modifier: BICKNEA 1 <*> Procedure Esophagogastroduodenoscopy [...] Modified By: Didi Shah RN 12/22/18 08:47:43 [facility] Endo - Surgical Procedures Entry 1 Entry [...] RN 12/22/18 08:26:02 12/22/18 08:41:15 12/22/18 08:43:18 [facility] Endo - Surgical Procedures Audit 12/22/18 08:47:32 Pricing Associate: BICKNEA Modifier: BICKNEA <+> 2 Stop <+> 3 Stop 12/22/18 08:47:31 Pricing Associate: BICKNEA Modifier: BICKNEA <+> 1 Stop 12/22/18 08:43:18 Pricing Associate: BICKNEA Modifier: BICKNEA <+> 3 Procedure <+> 3 Primary Procedure <+> 3 Primary Surgeon <+> 3 Specialty <+> 3 Start <+> 3 Wound Class <+> 3 Anesthesia Type 12/22/18 08:41:15 Pricing Associate: BICKNEA Modifier: BICKNEA <+> 1 Start <+> 2 Procedure <+> 2 Primary Procedure <+> 2 Primary Surgeon <+> 2 Specialty <+> 2 Start <+> 2 Wound Class <+> 2 Anesthesia Type 12/22/18 08:27:24 Pricing Associate: RUSSELL Modifier: BICKNEA 1 <*> Procedure Esophagogastroduodenoscopy [...] Endo - Time Out Audit 12/22/18 08:43:22 Pricing Associate: RUSSELL Modifier: SISSYKNEA 1 <*> Procedure to be Performed Esophagogastroduodenoscopy, Gastric Biopsy 12/22/18 08:41:20 Pricing Associate: RUSSELL Modifier: BICKNEA 1 <*> Procedure to be Performed Esophagogastroduodenoscopy Case Comments <None> Finalized By: Didi Shah, RN Document Signatures Signed By: Didi Shah RN 12/22/18 08:48 documented in this encounter Plan of Treatment Not on file documented as of this encounter Visit Diagnoses Not on filedocumented in this encounter Care Teams Captain Of Guards Relationship Specialty Start Date End Date Leonora Hansen HYDRAULIC MODELING ENGINEER [address] [place] [address] PCP - General Nurse Practitioner 06/03/23 documented as of this encounter
--- OUTSIDE RECORDS SUMMARY | 2025-04-05 12:24 | XMS_ITS | Encounter Summary ---
Author Organization Healthcare Address [address] [place] [address] Care Team Providers Care Airframe Technician Name Role Phone BenitoCaridad Gaby JIMENES Primary Care Provider [phone] Encounter Details Date Type Department Care Team ([facility] st Contact Info) Description 02/23/2025 Telephone [facility] Head[facility] Neck & Respiratory [address] , 2nd [place] [address] Ivett Navarrete RN Social History Tobacco Use [...] Info) Description 08/31/2025 8:30 AM EST Appointment [facility] Radiology [address] [place] [address] 08/31/2025 9:30 AM EST Office Visit [facility] Head[facility] Neck & Respiratory [address] , 2nd [place] [address] Jeffery Devine, DO [address] [place] [address] documented as of this encounter Goals Goal [...] documented as of this encounter Care Teams Airframe Technician Relationship Specialty Start Date End Date Caridad Oliver APRN [address] [place] [address] PCP - General 02/22/21 documented as of this encounter
--- OUTSIDE RECORDS SUMMARY | 2025-04-05 12:24 | XMS_ITS | Encounter Summary ---
Author Organization [employer] Address [address] [place] [address] Care Team Providers Care Carbon Sequestration Plant Manager Name Role Phone Leonora Hansen APRN Primary Care Provider + [phone] Encounter Details Date Type Department Care Team (Late st Contact Info) Description 12/22/2018 Transcribed Document [facility] [place] Family Medicine [address] [place] [address] ProviderJj MD [address] [place] [address] Social History Tobacco Use Types Packs/Day Years [...] Histories Past Medical History: Active Hiatal hernia (905631133) GERD - Gastro-esophageal reflux disease (9496824189) neck, left shoulder and back pain Endometriosis (9802341838) Resolved 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 Resolved on 02/10/2016 at 45 years. High triglycerides (201577875): Resolved. Hepatitis A (19393102): Resolved. Procedure history: Ovary removed. Hysterectomy (120964210). Heller Myotomy. section (73173041). Bilateral carpal tunnel release. APPENDECTOMY (73058). Social History Social & Psychosocial Habits Alcohol [...] list: All Problems Endometriosis / SNOMED CT 1408051908 / Confirmed Endometriosis / SNOMED CT 757587055 / Confirmed GERD - Gastro-esophageal reflux disease / SNOMED CT 9333249289 / Confirmed Hiatal hernia / SNOMED CT 083598395 / Confirmed neck, left shoulder and back pain / Confirmed Reflux / SNOMED CT 71474450 / Confirmed Hepatitis A / SNOMED CT 29288458 / Confirmed Resolved: Hepatitis A / SNOMED CT 49560580 Resolved: High triglycerides / SNOMED CT 849454619 Resolved: MRSA infection / SNOMED CT 7005520805 Review of Systems Constitutional: No fever, No [...] EDT Height Source Stated Height Entry Format [place] Height/Length, GUINEAN (ft) 5 ft Height/Length GUINEAN 3 Inch CLINICALHEIGHT 160.02 cm [place] Body Weight 52 kg Weight Source Standing scale Weight Entry Format [place] Weight Croatian lb 182.8 lb CLINICALWEIGHT 83.09 kg Body [...] No deformity, Normal gait. Integumentary: Warm, Dry, [place], No rash. Integumentary exam: Face, Chest, Arm, Abdomen, Leg. Neurologic: Alert, Oriented, No focal deficits. Orientation: To person, To place, To time. Psychiatric: Cooperative, Appropriate mood & affect, Normal judgment. Review / Management Results review: No qualifying data available. Impression and Plan GERD in the setting of Heller Myotomy at [facility] in 2017. Proceed with EGD with [...] on filedocumented in this encounter Care Teams Carbon Sequestration Plant Manager Relationship Specialty Start Date End Date Leonora Hansen, TALENT DEVELOPMENT CONSULTANT [address] [place] [address] PCP - General Nurse Practitioner 06/03/23 documented as of this encounter
--- OUTSIDE RECORDS SUMMARY | 2025-04-05 12:24 | XMS_ITS | Encounter Summary ---
Author Organization Healthcare Address [address] [place] [address] Care Team Providers Care Teletype Technician Name Role Phone BenitoCaridad Gaby JIMENES Primary Care Provider [phone] Encounter Details Date Type Department Care Team (Late st Contact Info) Description 02/07/2025 Telephone [facility] Head[facility] Neck & Respiratory [address] , [address] [place] [address] Corie West RN [facility] Social History [...] time in the past [address] [facility], were you homeless or living [...] AM EST Appointment [facility] [address] [place] [address] 08/31/2025 9:30 AM EST Office Visit Pav CC Head, Neck & Respiratory 800 [facility], 2nd [place] [address] Jeffery Devine D, DO 800 [facility] 1[address] [place] [address] documented as of this encounter Goals Goal [...] documented as of this encounter Care Teams Teletype Technician Relationship Specialty Start Date End Date Caridad Oliver APRN [address] [place] [address] PCP - General 02/22/21 documented as of this encounter
--- OUTSIDE RECORDS SUMMARY | 2025-04-05 12:24 | XMS_ITS | Encounter Summary ---
Author Organization [employer] Address [address] [place] [address] Care Team Providers Care Machined Parts Quality Inspector Name Role Phone Leonora Hansen APRN Primary Care Provider + [phone] Encounter Details Date Type Department Care Team (Late st Contact Info) Description 12/22/2018 Transcribed Document [facility] [place] Family Medicine [address] [place] [address] ProviderJj MD [address] [place], [place] [address] Social History Tobacco Use Types Packs/Day Years [...] on filedocumented in this encounter Care Teams Machined Parts Quality Inspector Relationship Specialty Start Date End Date Leonora Hansen, SENIOR TECH MANUFACTURING ENGINEERING [address] [facility] [address] [place] [address] PCP - General Nurse Practitioner 06/03/23 documented as of this encounter
--- OUTSIDE RECORDS SUMMARY | 2025-04-05 12:25 | XMS_ITS | Encounter Summary ---
Author Organization Healthcare Address [address] [place] [address] Care Team Providers Care Insurance Underwriter Sales Name Role Phone BenitoCaridad Gaby JIMENES Primary Care Provider [phone] Encounter Details Date Type Department Care Team (Late Contact Info) Description 01/05/2021 Orders Only External Location [address] [place] [address] Provider, External Social History Tobacco Use Types [...] AM EST Appointment [facility] [address] [place] [address] 08/31/2025 9:30 AM EST Office Visit [facility] Head, Neck & Respiratory 800 [facility], 2nd [place] [address] Jeffery Devine, DO [address] [address] documented as of this encounter Procedures Procedure [...] documented as of this encounter Care Teams Insurance Underwriter Sales Relationship Specialty Start Date End Date Caridad Oliver, JALIL [address] [place] [address] PCP - General 02/22/21 documented as of this encounter
--- OUTSIDE RECORDS SUMMARY | 2025-04-05 12:25 | XMS_ITS | Encounter Summary ---
Author Organization [employer] Address [address] [facility] [facility] [place] [address] Care Team Providers Care Pasting Inspector Name Role Phone Leonora Hansen APRN Primary Care Provider + [phone] Encounter Details Date Type Department Care Team (Late st Contact Info) Description 12/22/2018 Transcribed Document [facility] Family Medicine [address] [place] [address] ProviderJj MD [address], [place] [id number] Social History Tobacco Use Types Packs/Day Years Used Date Smoking Tobacco: Never Assessed Comments Unknown Sex and Gender Information Value Date Recorded Sex Assigned at Not on file Legal Sex Female 5:16 PM CDT Gender Identity Not on file Sexual Orientation Not on file documented as of this encounter Miscellaneous Notes * Cerner Conversion Note - Jj ProviderMD - 12/22/2018 8:39 AM CDT [facility] PACU Summary Primary Physician: GARCIA SAHNI MD-GAE Finalized Date/Time: 12/22/18 09:15:10 Pt. Name: JOSE CANDIDO Stuart.O.B./Sex: 1970 Female Med Rec #: [id number] Physician: GARCIA SAHNI MD-GAE Financial #: [id number] Pt. Type: O [place]Bed: [facility] Admit/Disch: 12/22/18 07:03:00 - Institution: [facility] PACU Case Times Entry 1 In PACU I 12/22/18 08:50:00 Ready for PACU 12/22/18 09:15:00 Discharge Discharge from PACU 12/22/18 09:16:00 I EDUARDOE Endo PACU Case Times Audit 12/22/18 09:15:05 [employer]: [email or web address] Modifier: [email or web address] 1 <*> Ready for PACU Discharge 12/22/18 09:14:00 1 <+> Discharge from PACU I 12/22/18 09:14:58 [employer]: [email or web address] Modifier: [email or web address] <+> 1 Ready for PACU Discharge 12/22/18 08:49:43 [employer] Handic[employer]: [id number] Modifier: [email or web address] <+> 1 In PACU I 12/22/18 07:44:00 Teacher [employer] Handic[employer]: [id number] Modifier: [id number] <-> In PACU I 12/22/18 07:12:00 1 <-> Ready for PACU Discharge 12/22/18 07:43:00 1 <-> Discharge from PACU I 12/22/18 07:43:00 Finalized By: CATRACHITO PAZ, RN Document Signatures Signed By: CATRACHITO PAZ RN 12/22/18 09:15 documented in this encounter Plan of Treatment Not on file documented as of this encounter Visit Diagnoses Not on filedocumented in this encounter Care Teams Pasting Inspector Relationship Specialty Start Date End Date Leonora Hansen, TAPE WEAVER [address] [place] [id number] PCP - General Nurse Practitioner 06/03/23 documented as of this encounter
--- OUTSIDE RECORDS SUMMARY | 2025-04-05 12:25 | XMS_ITS | Encounter Summary ---
Author Organization Healthcare Address [address] [place] [address] Care Team Providers Care Buyer Agent Name Role Phone BenitoCaridad JALIL Primary Care Provider [phone] Encounter Details Date Type Department Care Team ([facility] Contact Info) Description 02/20/2021 Orders Only External Location [address] [place] [address] Provider, External Social History Tobacco Use Types [...] AM EST Appointment [facility] Radiology [address] [place] [address] 08/31/2025 9:30 AM EST Office Visit [facility] [address] [facility] [place] [address] Jeffery Devine, DO [address] [address] documented as of this encounter Procedures Procedure [...] documented as of this encounter Care Teams Buyer Agent Relationship Specialty Start Date End Date Caridad Oliver APRN [facility] [place] [address] PCP - General 02/22/21 documented as of this encounter
--- OUTSIDE RECORDS SUMMARY | 2025-04-05 12:25 | XMS_ITS | Encounter Summary ---
Author Organization [employer] Address [address] [place] [address] Care Team Providers Care Aircraft General Repair Mechanic Name Role Phone Leonora Hansen APRN Primary Care Provider + [phone] Encounter Details Date Type Department Care Team (Late st Contact Info) Description 12/22/2018 Transcribed Document [facility] Family Medicine [address] [place] [address] ProviderJj MD [address] [place] [address] Social History Tobacco Use Types Packs/Day Years Used Date Smoking Tobacco: Never Assessed Comments Unknown Sex and Gender Information Value Date Recorded Sex Assigned at Not on file Legal Sex Female 5:16 PM CDT Gender Identity Not on file Sexual Orientation Not on file documented as of this encounter Miscellaneous Notes * Cerner Conversion Note - Jj ProviderMD - 12/22/2018 9:01 AM CDT Discharge [...] 12/22/2018 9:01 EDT Electronically signed by Margi, [facility] Conversion X Ray Service Technician Cerner at 01/28/2023 8:06 AM CDT documented in this encounter Plan of Treatment Not on file documented as of this encounter Visit Diagnoses Not on filedocumented in this encounter Care Teams Aircraft General Repair Mechanic Relationship Specialty Start Date End Date Leonora Hansen, CHEMI[employer] PROTEINS [address] [place] [address] PCP - General Nurse Practitioner 06/03/23 documented as of this encounter
--- OUTSIDE RECORDS SUMMARY | 2025-04-05 12:25 | XMS_ITS | Clinical Summary ---
Author Organization [facility] Address [address] [place] [address] Care Team Providers Care Childhood Development Teacher Name Role Phone Caridad Oliver Gaby JIMENES Primary Care Provider [phone] Allergies Active Allergy Reactions Criticality Noted Date [...] J Tube route every 1 (one) hour. 22386 mL 5 5 07/18/20 25 Active oxyCODONE (Roxicodone) 5 MG immediate release tablet Take 1 tablet by mouth every 6 hours as needed for moderate pain. 24 tablet 5 Active Additional Information Patient not taking.Reported on 03/02/2025 nutritional drink (Boost) liquid liquid Take 237 mL by mouth 2 times a day. 93872 mL 2 5 05/15/20 25 Active pantoprazole (Protonix) 40 MG EC tablet Take 1 tablet by mouth daily before breakfast. Do not crush, chew, or split. 30 tablet 1 5 04/02/20 25 Active Problems Problem Noted Date Diagnosed Date Heartburn High cholesterol Depression Overview (01/27/2025): Resume home medications as appropriate. Resolved Problems Problem Noted Date Diagnosed Date Resolved Date Electrolyte abnormality 01/27/2025 04/2 12/2024 Overview (01/27/2025): Hypocalcemia Hypokalemia Hypomagnesemia Monitor - Replete as indicated Achalasia 09/22/2024 02/01/2025 Overview (01/29/2025): 01/25/25 - Bronch, EGD, Minimally Invasive Faizan esophagectomy, Lap J tube insertion Following esophagectomy protocol. Encounters Date Type Department Care Team Description 04/04/2025 Telephone [facility] [address], [address] [place] [address] Jeffery Devine, DO 03/17/2025 Telephone [facility] [address], [address] [place] [phone] Corie West RN 03/02/2025 10:30 AM EDT Office Visit [facility] [address], [address] [place] [phone] Jeffery Devine, DO Achalasia (Primary Dx) 03/02/2025 Travel 02/23/2025 Telephone [facility] [address], [address] [place] [phone] Ivett Navarrete RN 02/21/2025 11:15 AM EDT Office Visit [facility] [address], [address] [place] [phone] Stephanie Ray PA Achalasia (Primary Dx) 02/21/2025 Travel 02/20/2025 Telephone [facility] [address], [address] [place] [phone] Jeffery Devine, DO 02/14/2025 11:20 AM EDT Office Visit [facility] [address] [phone] Stephanie Ray PA Achalasia (Primary Dx) 02/14/2025 10:45 AM EDT - 02/14/2025 11:59 PM EDT Hospital Encounter [facility] Radiology [address] [place] [phone] Achalasia Discharge Disposition: Home or Self Care 02/14/2025 Nutrition [facility] [address] [phone] Stephy Devine, LOWELL 02/14/2025 Travel 02/14/2025 Telephone [facility] [address] [address] Jeffery Devine, DO 02/07/2025 Telephone [facility] [address] [phone] Corie West RN 02/06/2025 Refill [facility] [address] [address] Jeffery Devine, DO 02/03/2025 Telephone [facility] Inpatient [address] [place] [address] Kera Garcia 02/01/2025 Travel 01/31/2025 Travel 01/30/2025 Travel 01/29/2025 Travel 01/28/2025 Travel 01/27/2025 Travel 01/26/2025 Travel 01/25/2025 8:15 AM EDT - 01/25/2025 3:00 PM EDT Surgery [facility] OPERATING ROOM [address] [place] [phone] Jeffery Devine, DO MINIMALLY INVASIVE ESOPHAGECTOMY, LAPAROSCOPIC [[id number] (CPT )] 01/25/2025 8:06 AM EDT Anesthesia Event [facility] OPERATING RO[facility] [address] [place] [phone] Lesa Mosquera MD Wilson, Derek, MD 01/25/2025 5:44 AM EDT - 02/01/2025 2:38 PM EDT Hospital Encounter [facility] Inpatient [address] [place] [address] Jeffery Devine, Achalasia Discharge Disposition: Home or Self Care 01/25/2025 Travel 01/24/2025 Travel 01/19/2025 2:30 PM EDT Office Visit [facility] [address] [facility] 2nd [place] [address] Jeffery Devine, Achalasia (Primary Dx) 01/19/2025 Nutrition [facility] [address] [place] [address] Nancy Devine 01/19/2025 Travel 01/13/2025 Telephone [facility] Inpatient [address] [place] [address] Kera Garcia 01/09/2025 7:30 AM EDT - 01/09/2025 2:45 PM EDT Surgery [facility] OPERATING ROOM [address] [place] [phone] Jeffery Devine, DO CREATION, JEJUNOSTOMY, LAPAROSCOPIC 01/09/2025 7:28 AM EDT Anesthesia Event [facility] OPERATING ROOM [address] [place] [address] Selvin Enriquez DO Smyke, Matthew E, MD 01/09/2025 5:59 AM EDT - 01/11/2025 3:52 PM EDT Hospital Encounter [facility] Inpatient [address] [place] [address] Jeffery Devine, Achalasia (Primary Dx) Discharge Disposition: Home or Self Care 01/09/2025 Travel 01/06/2025 9:30 AM EDT [facility] Testing [facility] [address], [address] [place] [address] Achalasia (Primary Dx); Hyperlipidemia, unspecified hyperlipidemia type 01/06/2025 Travel 01/04/2025 Telephone [facility] [address] [phone] Jeffery Devine, DO from Last 3 Months [...] time in the past 12 m [facility], were you homeless or living in a [...] AM EST Appointment [facility] Radiology [address] [place] [address] 08/31/2025 9:30 AM EST Office Visit [facility] [address] [facility], 2nd [place] [address] Jeffery Devine, DO [address] [facility] [address]st [place] [address] Health Maintenance Due Date Last Done Comments [facility]-Depression Screening 1972 [facility]-HIV Screening 1972 [facility]-Hepatitis C Screening 1972 [facility]-Infant/Child/Adol SDOH Screenings 1972 [facility]-DTaP,Tdap,and Td Vaccines (1 - Tdap) 1991 [facility]-Hepatitis B Vaccines (1 of 3 - 19+ 3-dose series) 1991 [facility]-Pneumococcal Vaccine: 50+ Years (1 of 2 - PCV) 1991 CT Colonography 2017 Colonoscopy 2017 FIT-DNA 2017 FIT 2017 FOBT 2017 Sigmoidoscopy 2017 [facility]-Colorectal Cancer Screening 2017 [facility]-Breast Cancer Screening 2022 [facility]-Zoster Vaccines (1 of 2) 2022 [id number] Vaccine ( - season) 2024 [facility]-Influenza Vaccine [...] ed Goal Care Plan Autogenerated Problem No JohnsonLeticai hurst Autogenerat ed Goal Care Plan Autogenerated Problem No JohnsonLeticia hurst Procedures Procedure Name Priority Date/Time Associated Diagnosis [...] ANESTHESIA PLACEHOLDER Routine 2024 8:13 AM EDT AR AN ELECTIVE ENDOTRACHEAL AIRWAY Routine 01/25/2025 8:13 AM EDT AR ESOPHAGECTOMY DISTAL 2/3 W/LAPAROSCOPIC MOBLJ 01/25/2025 7:50 [...] ANESTHESIA PLACEHOLDER Routine 2024 7:43 AM EDT AR AN ELECTIVE ENDOTRACHEAL AIRWAY Routine 01/09/2025 7:43 AM EDT AR ESOPHAGOGASTRODUODENOSCOP Y TRANSORAL DIAGNOSTIC 01/09/2025 7:16 AM [...] DATA CONVERSION Routine 12/05/1998 12:00 AM EST from Last 3 Months or Most Recently [...] LAB HEMATOLOGY METHOD 02/01/2025 10:[address] [facility] RBC Count 3.60(L) 3.90 - 5.20 10*6/uL LAB HEMATOLOGY METHOD 02/01/2025 10:[address] [facility] HGB 10.3(L) 11.2 - 15.7 g/dL LAB HEMATOLOGY METHOD 02/01/2025 10:[address] [facility] HCT 31.9(L) 34.0 - 45.0 % LAB HEMATOLOGY METHOD 02/01/2025 10:[address] [facility] Platelet Count 259 155 - 369 10*3/uL LAB HEMATOLOGY METHOD 02/01/2025 10:[address] [facility] MCV 89 79 - 98 fL LAB HEMATOLOGY METHOD 02/01/2025 10:[address] [facility] MCH 28.6 26.0 - 32.0 pg LAB HEMATOLOGY METHOD 02/01/2025 10:[address] [facility] MCHC 32.3 30.7 - 35.5 g/dL LAB HEMATOLOGY METHOD 02/01/2025 10:[address] [facility] RDW 14.1 11.5 - 14.5 % LAB HEMATOLOGY METHOD 02/01/2025 10:[address] [facility] MPV 10.6 8.8 - 12.5 fL LAB HEMATOLOGY METHOD 02/01/2025 10:[address] [facility] nRBC 0.0 <=0.0 per 100 WBCs LAB HEMATOLOGY METHOD 02/01/2025 10:[address] [facility] Blood Venous blood specimen / Unknown Venipuncture / Unknown 02/01/2025 9:57 AM EDT 02/01/2025 10:13 AM EDT us Diamante Weber [facility] LAB BLOOD ORDERABLES Final Re sult [facility] [address] [place] [address] * Magnesium, Plasma (02/01/2025 9:57 AM EDT) Only the most recent of10 resultswithin the time period is included. Magnesium, Plasma 2.2 1.9 - 2.4 mg/dL 02/01/2025 10:[address] [facility] Blood Venous blood specimen / Unknown Venipuncture / Unknown 02/01/2025 9:57 AM EDT 02/01/2025 10:13 AM EDT us Diamante A Weber [facility] LAB BLOOD ORDERABLES Final Re sult [facility] [address] [place] [address] * (ABNORMAL) Renal Function Panel, Plasma (02/01/2025 9:57 AM EDT) Only the most recent of11 resultswithin the time period is included. Glucose, Plasma 98 74 - 99 mg/dL 02/01/2025 10:[address] [facility] BUN, Plasma 15 7 - 21 mg/dL 02/01/2025 10:[address] [facility] Creatinine, Plasma 0.56(L) 0.60 - 1.10 mg/dL 02/01/2025 10:[address] [facility] BUN/Creatinine Ratio 27 02/01/2025 10:[address] [facility] Sodium, Plasma 140 136 - 145 mmol/L 02/01/2025 10:[address] [facility] Potassium, Plasma 4.2 3.6 - 4.9 mmol/L 02/01/2025 10:[address] [facility] Chloride, Plasma 104 97 - 107 mmol/L 02/01/2025 10:[address] [facility] CO2, Plasma 25 22 - 29 mmol/L 02/01/2025 10:[address] [facility] Anion Gap 11 6 - 16 mmol/L 02/01/2025 10:[address] [facility] Total Calcium, Plasma 8.7(L) 8.9 - 10.2 mg/dL 02/01/2025 10:[address] [facility] Phosphorus, Plasma 3.9 2.5 - 4.5 mg/dL 02/01/2025 10:[address] [facility] Albumin, Plasma 3.2(L) 3.5 - 5.2 g/dL 02/01/2025 10:[address] [facility] eGFRcr 110.0 mL/min/1.7 3m*2 02/01/2025 10:[address] [facility] Comment:Reported eGFRcr in m L/min/1.73m2 is based the CKD-EPI 2020 equation that does not use a race coefficient. Blood Venous blood specimen / Unknown Venipuncture / Unknown 02/01/2025 9:57 AM EDT 02/01/2025 10:13 AM EDT us Diamante Jarrett Weber [facility] LAB BLOOD ORDERABLES Final Re sult [facility] [address] [place] [address] * XR Chest 1 View (02/01/2025 6:56 [...] Kilpatrick MD on 02/01/2025 9:35 AM Diamante Jarrett Weber [employer] IMG XR PROCEDURES Final Resul t * [...] Comment 02/01/2025 12:00 AM EDT [facility] Service Dog Trainer ID [id number] [email or web address], ichon 02/01/2025 12:00 AM EDT [facility] Device ID [id number] 02/01/2025 12:00 AM EDT [facility] Specimen Type POC Capillary 02/01/2025 12:00 AM EDT [facility] Blood Capillary blood specimen / Unknown 01/31/2025 11:58 PM EDT 02/01/2025 12:00 AM EDT us Jeffery Devine DO LAB POINT OF CARE TE ST DOCKED DEVICE UNSOLICITED RESULTS Final Result [facility] [address] [place] [address] * FL Barium Swallow (01/30/2025 10:03 AM [...] 11:08 AM Final report signed by Laureen Warern MD on 01/30/2025 11:55 AM Narrative 01/30/2025 [...] extraluminal contrast or anastomotic leak. Other: On certified orthoptist imaging, unchanged positioning of the surgical clips [...] of extraluminal contrast oranastomotic leak. Other: On certified orthoptist imaging, unchanged positioning of the surgical clipsoverlying [...] Laureen Warren MD on 01/30/2025 11:55 AM us Jeffery Devine DO IMG FLUOROSCOPY PROCEDURES Fi [...] Detected Not Detected 01/28/2025 12:[address] [facility] Stool Rectum structure / Unknown Non-blood Collection / Unknown 01/27/2025 10:40 PM EDT 01/27/2025 11:[address] [facility] - 01/28/2025 12:12 AM [...] MICROBIOLOGY - GENERAL OR DERABLES Final Result [facility] [address] [place] [address] * Makayla auris Surveillance by PCR (01/25/2025 3:02 PM EDT) Makayla auris PCR Result Not Detected Not Detected 01/26/2025 10:[address] [facility] Swab (Axilla and Groin) Non-blood Collection / Unknown 01/25/2025 3:02 PM EDT 01/25/2025 3:[address] [facility] - 01/26/2025 10:17 AM EDT This PCR assay was developed and its performance characteristics determined by [facility] as appropriate for clinical purposes. This assay has not been cleared or approved by the FDA, but is performed in a CLIA regulated laboratory that is qualified to perform high-complexity testing. us Jeffery Devine DO LAB MICROBIOLOGY - GENERAL OR DERABLES Final Result Performing Organization Address [facility] Co de Phone Number [facility] [address] [place] [address] * Multi Drug Resistance Test (01/25/2025 3:02 PM EDT) Pathologist [facility] Culture No growth at day 1 01/26/2025 1:[address] [facility] Swab (Nares and Alexandra Rectal) Non-blood Collection / Unknown 01/25/2025 3:02 PM EDT 01/25/2025 3:42 PM EDT us Jeffery Devine DO LAB MICROBIOLOGY - GENERAL OR DERABLES Final Result Performing Organization Address City/[facility]/ZIP Co de Phone Number [facility] [address] [place] [address] * (ABNORMAL) Blood gas panel, arterial (01/25/2025 2:59 PM EDT) pH, Arterial 7.34(L) 7.35 - 7.45 LAB HEMATOLOGY METHOD 01/25/2025 3:[address] [facility] pCO2, Arterial 44 35 - 48 mmHg LAB HEMATOLOGY METHOD 01/25/2025 3:[address] [facility] pO2, Arterial 75(L) 83 - 108 mmHg LAB HEMATOLOGY METHOD 01/25/2025 3:[address] [facility] SO2, Measured, Arterial 95 94 - 98 % LAB HEMATOLOGY METHOD 01/25/2025 3:[address] [facility] Base Excess, Arterial -2.1(L) -2.0 - 3.0 mmol/L LAB HEMATOLOGY METHOD 01/25/2025 3:[address] [facility] Bicarbonate, Calculated, Arterial 24 22 - 26 mmol/L LAB HEMATOLOGY METHOD 01/25/2025 3:[address] [facility] Hematocrit, Whole Blood 37.3 34.0 - 45.0 % LAB HEMATOLOGY METHOD 01/25/2025 3:[address] [facility] Sodium, Whole Blood 141 136 - 145 mmol/L LAB HEMATOLOGY METHOD 01/25/2025 3:[address] [facility] Potassium, Whole Blood 3.7 3.6 - 4.9 mmol/L LAB HEMATOLOGY METHOD 01/25/2025 3:[address] [facility] Chloride, Whole Blood 108(H) 97 - 107 mmol/L LAB HEMATOLOGY METHOD 01/25/2025 3:[address] [facility] Glucose, Whole Blood 152(H) 74 - 99 mg/dL LAB HEMATOLOGY METHOD 01/25/2025 3:[address] [facility] Ionized Calcium, Whole Blood 4.6 4.6 - 5.1 mg/dL LAB HEMATOLOGY METHOD 01/25/2025 3:[address] [facility] Lactate, Arterial, Whole Blood 2.6(H) 0.5 - 1.6 mmol/L LAB HEMATOLOGY METHOD 01/25/2025 3:[address] [facility] Blood Arterial blood specimen / Unknown Arterial Puncture / Unknown 01/25/2025 2:59 PM EDT 01/25/2025 3:13 PM EDT us Diamante Weber [facility] LAB BLOOD ORDERABLES Final Re sult [facility] [address] [place] [address] * Surgical Pathology Exam (01/25/2025 12:18 PM EDT) Case Report Surgical Pathology Case: [id number] Authorizing Provider: Jeffery Devine DO Collected: 01/25/2025 1218 Ordering Location: [facility] OPER[facility] Received: 01/25/2025 1326 Pathologist: Harshil Banks MD Specimens: A) - Esophagus, portion of esophagus fresh for permanent B) - Esophagus, esophagogastric anastomosis fresh for permanent C) - Esophagus, esophagogastrectom y fresh for permanent 12:28 PM EDT [facility] Final Diagnosis A. ESOPHAGUS, EXCISION: [...] LYMPH NODES (7) 5 12:28 PM EDT [facility] at 1228 EDT Clinical Information Achalasia 01/11 12:28 PM EDT [facility] Special and Immunohistochemical Stains Special Stain: [id number] Mike Trichrome Stain IHC: There are no tasks to display for the given criteria. All controls show appropriate reactivity. All immunohistochemist ry, in situ hybridization, and histochemical tests were developed by and are performed at the [facility], [address] [place] [address]. All tests reported here, except those addressing [...] on decalcified specimens. 5 12:28 PM EDT [facility] Gross Description A. PORTION OF ESOPHAGUS FRESH FOR PERMANENT The specimens received fresh, placed in formalin labeled p ortion of esophagus and consists of a a 3.5 x 0.3 x 0.2 cm teague-pink segment of stapled esophagus with scantly attached esophageal tissue. The chiqui are excised and vaccine customer representative sections are submitted in cassette A1. [...] to reveal teague-pink, grossly unremarkable mucosal surface. Melter Supervisor [employer] sections are submitted in cassette B1. Cold [...] grossly identified. Gross photographs have been taken. Melter Supervisor [employer] sections are submitted as follows: C1: Esophageal [...] 56m Angeles Barreto MD 12:[address] [facility] Note: A resident was involved in the service. I attest I examined the relevant preparations for the specimens and confirmed the diagnosis or interpretation. 12:[address] [facility] Tissue Esophageal structure / [...] DO LAB PATHOLOGY ORDERABLES Prudence cabezas Result [facility] [address] [place] [address] * ANESTHESIA ULTRASOUND GUIDED (01/25/2025 8:45 AM EDT) Narrative Lesa Mosquera MD - 01/25/2025 8:45 AM EDT Lesa [...] ORDERABLES Edited Res ult - Final * AR AN ELECTIVE ENDOTRACHEAL AIRWAY, PB ANESTHESIA PLACEHOLDER [...] BLOOD BANK TEST ORDERABL ES Final Result BLOOD BANK [address] [place] [address], * ECG Adult (01/10/2025 4:02 AM EDT) Only the most recent of2 resultswithin the time period is included. Pathologist [facility] EKG DIAGNOSIS CLASS Borderline Normal MUSE ECG Ventricular Rate 54 BPM MUSE ECG Atrial Rate 54 BPM MUSE ECG AR Interval 162 ms MUSE ECG QRSD Interval 86 ms MUSE ECG QT Interval 458 ms MUSE ECG QTC Interval 434 ms MUSE ECG P [place] 57 degrees MUSE ECG R [place] 11 degrees MUSE ECG T Wave [place] 15 degrees MUSE ECG Diagnosis Sinus bradycardia MUSE ECG Diagnosis Otherwise normal ECG MUSE ECG Diagnosis MUSE ECG Diagnosis Confirmed by Reymundo Swift ([id number]) on 01/10/2025 10:55:32 AM MUSE ECG 01/10/2025 4:02 AM EDT 01/10/2025 10:55 AM EDT Jeffery Devine DO ECG ORDERABLES Final Result MUSE ECG * (ABNORMAL) Prealbumin (01/10/2025 3:33 AM EDT) Pathologist [facility] Prealbumin, Plasma 18.8(L) 20.0 - 41.0 mg/dL 01/10/2025 5:[address] [facility] Blood Venous blood specimen / Unknown Venipuncture / Unknown 01/10/2025 3:33 AM EDT 01/10/2025 4:39 AM EDT us Jeffery Devine DO LAB BLOOD ORDERABLES Final Re sult [facility] [address] [place] [address] * Peripheral IV (01/09/2025 8:06 AM EDT) [...] DO ANESTHESIA ORDERABLES Final Re sult * AR AN ELECTIVE ENDOTRACHEAL AIRWAY, PB ANESTHESIA PLACEHOLDER [...] Basic metabolic panel (01/06/2025 10:27 AM EDT) Pathologist [facility] Glucose, Plasma 96 74 - 99 mg/dL 01/06/2025 12:[address] [facility] BUN, Plasma 15 7 - 21 mg/dL 01/06/2025 12:[address] [facility] Creatinine, Plasma 0.69 0.60 - 1.10 mg/dL 01/06/2025 12:[address] [facility] BUN/Creatinine Ratio 22 01/06/2025 12:[address] [facility] Sodium, Plasma 144 136 - 145 mmol/L 01/06/2025 12:[address] [facility] Potassium, Plasma 4.4 3.6 - 4.9 mmol/L 01/06/2025 12:[address] [facility] Chloride, Plasma 107 97 - 107 mmol/L 01/06/2025 12:[address] [facility] CO2, Plasma 25 22 - 29 mmol/L 01/06/2025 12:[address] [facility] Anion Gap 12 6 - 16 mmol/L 01/06/2025 12:[address] [facility] Total Calcium, Plasma 9.6 8.9 - 10.2 mg/dL 01/06/2025 12:[address] [facility] eGFRcr 104.6 mL/min/1.7 3m*2 01/06/2025 12:[address] [facility] Comment:Reported eGFRcr in m L/min/1.73m2 is based the CKD-EPI 2020 equation that does not use a race coefficient. Blood Venous blood specimen / Unknown Venipuncture / Unknown 01/06/2025 10:27 AM EDT 01/06/2025 10:27 AM EDT us Micheline Chavez APRN LAB BLOOD ORDERABLES Prudence cabezas Result [facility] [address] [place] [address] * Cytology (12/05/1998 12:00 AM EST) 12/05/1998 12/06/1998 Narrative [facility] - 12/13/1998 12:00 AM EST [facility] MR #: [id number] [facility] [address] [place], [place] [address] 1970 (Age: 28) FW Collect Date: 12/05/1998 00:00 Receipt Date: 12/06/1998 00:00 Page 1 DEPARTMENT OF PATHOLOGY AND LABORATORY MEDICINE CYTOPATHOLOGY REPORT Email: [email or web address] at [facility] [phone] * Converted Case * This report may [...] Signed Out By Eric Tapia CAYLA Guzmán (ASCP) No Signature Required Cervical cytology is a [...] results is suggested (please call Microbiology at [phone] for results). CLINICAL INFORMATION: Menstrual History: {Not Provided} Date of Last Menstrual Period: {Not Provided} SPECIMEN DESCRIPTION: A: CERVICAL/VAGINAL SMEAR, PAP ICD: F: {Not Entered} SNOMED CODES: 1; [id number] [id number] In cases where a pathologist has signed out the report, the service has been rendered in part by a resident. The signing pathologist has performed and is responsible for the reported pathologic evaluation. us Historical Provider MD LAB PATHOLOGY ORDERABLES Final Result [facility] from Last 3 Months or Most Recently Relevant to Health Maintenance Additional Health Concerns Active Problems Noted Date Diagnosed Date Autogenerated Problem 12/26/2024 Autogenerated Problem 01/11/2025 Insurance ANTH Advance Directives * Full Code (Latest Code Status on File) Date Activated Date Inactivated Comments 01/25/2025 2:38 PM 02/01/2025 4:43 PM Question Answer Comments I have reviewed the capacity from the link above and, if needed, have updated to appropriate status: Yes * Full Code Date Activated Date Inactivated Comments 01/09/2025 9:54 AM 01/11/2025 5:57 PM Care Teams Childhood Development Teacher Relationship Specialty Start Date End Date Caridad Oliver APRN [address] [place] [address] PCP - General 02/22/21
--- OUTSIDE RECORDS SUMMARY | 2025-04-05 12:25 | XMS_ITS | Encounter Summary ---
Author Organization Healthcare Address [address] [place] [address] Care Team Providers Care Cat Swamper Name Role Phone BenitoCaridad JALIL Primary Care Provider [phone] Encounter Details Date Type Department Care Team (Late Contact Info) Description 03/10/2024 Orders Only External Location [address] [place] [address] Provider, External Social History Tobacco Use Types [...] AM EST Appointment [facility] H Radiology [address] [place] [address] 08/31/2025 9:30 AM EST Office Visit Pav [facility]ck [facility] Respiratory [address] [facility], 2nd [place] [address] Jeffery Devine, DO [address] [address] documented as of this encounter Procedures Procedure [...] documented as of this encounter Care Teams Cat Swamper Relationship Specialty Start Date End Date Caridad Oliver, JALIL [address] [place] [address] PCP - General 02/22/21 documented as of this encounter
--- OUTSIDE RECORDS SUMMARY | 2025-04-05 12:25 | XMS_ITS | Encounter Summary ---
Author Organization Healthcare Address [address] [place] [address] Care Team Providers Care Faculty Head Name Role Phone Benito Caridad Gaby JIMENES Primary Care Provider [phone] Encounter Details Date Type Department Care Team ([facility] st Contact Info) Description 04/04/2025 Telephone Pav [facility] Head, Neck & Respiratory [address] [facility], [address]nd [place] [address] Jeffery Devine, DO [address] [facility] [address] [place] [phone] Social History Tobacco Use Types Packs/Day Years [...] time in the past 12 m [place], were you homeless or living in a [...] Telephone Encounter - Corie West RN - 04/04/2025 1:47 PM EDT RN discussed with pt. Pt worried she aspirated coffee about a week ago and has a deep nagging coughsince. Rn discussed that pt should reach out to PCP or go to urgent care for evaluation. RN stated images can be shared with [facility] if needed. Pt verbalized understanding and agreeable to plan. * Telephone Encounter - Justyn Kevin - 04/04/2025 12:02 PM EDT Pt called asking to speak with Stephy Quarles regarding - pt thinks she needs an xray, thinks she has pneumonia. documented in this encounter Plan of Treatment Upcoming Encounters Date Type Department Care Team (Late st Contact Info) Description 08/31/2025 8:30 AM EST Appointment PAV H Radiology [address] [place] [address] 08/31/2025 9:30 AM EST Office Visit Pav CC Head, Neck & Respiratory [address] [facility], [address]nd [place] [address] Jeffery Devine, DO [address] [facility] [address] [place] [address] documented as of this encounter Goals Goal [...] documented as of this encounter Care Teams Faculty Head Relationship Specialty Start Date End Date Caridad Oliver APRN [address] [place], [place] [id number] PCP - General 02/22/21 documented as of this encounter
--- OUTSIDE RECORDS SUMMARY | 2025-04-05 12:25 | XMS_ITS | Encounter Summary ---
Author Organization Healthcare Address [address] [place] [address] Care Team Providers Care Community Program Assistant Name Role Phone Caridad Oliver JALIL Primary Care Provider [phone] Encounter Details Date Type Department Care Team (Late Contact Info) Description 05/27/2024 Orders Only External Location [address] [place] [address] Provider, External Social History Tobacco Use Types [...] AM EST Appointment P[facility] H Radiology [address] [place] [address] 08/31/2025 9:30 AM EST Office Visit Pav CC Head, Neck & Respiratory 800 [facility], 2nd [place] [address] Jeffery Devine, DO [address] [phone] documented as of this encounter Procedures Procedure [...] documented as of this encounter Care Teams Community Program Assistant Relationship Specialty Start Date End Date Caridad Oliver APRN [address] [place] [address] PCP - General 02/22/21 documented as of this encounter
--- OUTSIDE RECORDS SUMMARY | 2025-04-05 12:25 | XMS_ITS | Encounter Summary ---
Author Organization [employer] Address [address] [place] [address] Care Team Providers Care Supermarket Manager Name Role Phone Leonora Hansen APRN Primary Care Provider [phone] Encounter Details Date Type Department Care Team (Late st Contact Info) Description 12/22/[address] [facility] [address] [place] [address] ProviderJj MD [address] [place], [place] [id number] Social History Tobacco Use Types Packs/Day Years [...] Santacruz MD - 12/22/2018 9:09 AM CDT [facility] [address], [place] [address] Patient Copy Patient Information: Name: KAVITA GARCIA Current Date: 12/22/2018 09:09:11 : 1970 Patient Address: [address] [place] [phone] Patient Attending Physician: GARCIA CHAU MD-KRISTYN Primary Care Provider: PHY, NOT LISTED Primary Care Provider Phone: Discharge Diagnosis: Weight on Admission: 182 lb, 13 oz Comment: Follow-up Instructions: With: Address: When: GARCIA BORA [address] [facility], [address] [place], [place] [id number] Business (1) Within As needed, only if [...] Instructions (if any): Final Medication List: [facility], [address] [place] [phone], [phone] dexlansoprazole (Dexilant 60 mg oral delayed release [...] Follow these instructions at home: ??? Take vgoj-tjt-vlezbtv and prescription medicines only as told by [...] 09/14/2013 Document Revised: 02/16/2017 Document Reviewed: 10/12/2016 [employer] Interactive Patient Education ? 2017 [employer]. Gastritis, Adult Gastritis is soreness and swelling [...] (NSAIDs). HOME CARE INSTRUCTIONS ??? Only take zgff-jur-ehthqzo or prescription medicines as directed by your [...] Garlic and onions. ? Spicy foods. ? [place] fruits, such as oranges, kylie, or limes. [...] 09/22/2002 Document Revised: 03/29/2013 Document Reviewed: 06/21/2016 [employer] Interactive Patient Education ? 2017 [employer] Esophagitis Introduction Esophagitis is inflammation of [...] vinegar, hot sauces, and barbecue sauce. ? [place] fruit juices and citrus fruits, such as oranges, kylie, and limes. ? Tomato-based foods, such as red sauce, chili, salsa, and pizza with red sauce. ? Fried and fatty foods, such as donuts, estonian fries, potato chips, and high-fat dressings. ? [...] any changes in your symptoms. ??? Take wlwr-pcp-uzwjetv and prescription medicines only as told by [...] Revised: 03/05/2017 Document Reviewed: 01/23/2016 ? 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 What [...] may report side effects to FDA at 3-111-YSQ-0604. What other drugs will affect dexlansoprazole? Tell your doctor about all your current medicines. Many drugs can affect dexlansoprazole, especially: ? methotrexate; ?? rifampin; ?? Radha's wort; or ?? warfarin (Coumadin, Jantoven). This list is not complete and many other drugs may affect dexlansoprazole. This includes prescription and jquh-czu-zmwsxjy medicines, vitamins, and herbal products. Not all [...] to ensure that the information provided by [employer]. ('[employer]') is accurate, up-to-date, and complete, but no guarantee is made to that effect. Drug information contained herein may be time sensitive. [employer] information has been compiled for use by healthcare practitioners and consumers in the [place] and therefore [employer] does not warrant that uses outside of the [place] are appropriate, unless specifically indicated otherwise. [employer] drug information does not endorse drugs, diagnose patients or recommend therapy. [employer] drug information is an informational resource designed [...] effective or appropriate for any given patient. [employer] does not assume any responsibility for any aspect of healthcare administered with the aid of information [employer] provides. The information contained herein is not intended to cover all possible uses, directions, precautions, warnings, drug interactions, allergic reactions, or adverse effects. If you have questions about the drugs you are taking, check with your doctor, nurse or pharmacist. Copyright 3931-0145 [employer]. Version: 14.01. Revision Date: 04/05/2018. CIGARETTE SMOKING: The facts are clear, cigarette smoking will shorten your life. Smoking can cause many illnesses along the way. As a healthcare provider, we recommend that you stop smoking. Assistance with quitting is available by contacting 5-809-AGTS-NOW. This is a free resource providing counseling, [...] Be sure to sign up for the [employer] patient portal, which gives you 04/05 access to your medical information ??? including these discharge instructions ??? using your computer, smartphone, or tablet. Just go to [employer] to get started. Questions? Call . [facility] would like to thank you for allowing us to assist you with your healthcare needs. JOSE Mallory THEREASA L, (or in home sales representative) have received the above patient education materials/instructions and have verbalized understanding: Patient Signature _ Date/Time Patient Rn Peritoneal Dialysis Signature (if needed) Date/Time Clinician/Hospital Rn Peritoneal Dialysis Signature (if needed) Date/Time Electronically signed by Margi, [facility] Conversion Cloud Systems Administrator Sunniner at 01/28/2023 7:57 AM CDT documented in this encounter Plan of Treatment Not on file documented as of this encounter Visit Diagnoses Not on filedocumented in this encounter Care Teams Supermarket Manager Relationship Specialty Start Date End Date Leonora Hansen APRN [address] [facility] [address] [place] [address] PCP - General Nurse Practitioner 06/03/23 documented as of this encounter
--- OUTSIDE RECORDS SUMMARY | 2025-04-05 12:25 | XMS_ITS | Encounter Summary ---
Author Organization Healthcare Address [address] [place] [address] Care Team Providers Care Quality Assurance Specialist Name Role Phone Caridad Oliver JALIL Primary Care Provider [phone] Encounter Details Date Type Department Care Team (Late st Contact Info) Description 11/04/2022 Community [facility] [address] [place] [address] Leonora Hansen, SCREEN OPERATOR [address] [place] [address] Hiatal hernia (Primary Dx) Social History Tobacco [...] AM EST Appointment PAV H Radiology [address] [place] [address] 08/31/2025 9:30 AM EST Office Visit Pav CC Head, Neck & Respiratory [address] [facility], [address]nd [place] [phone] Jeffery Devine, DO [address] [facility] [address] [place] [phone] documented as of this encounter Visit Diagnoses Diagnosis Hiatal hernia- Primary Diaphragmatic hernia without mention of obstruction or gangrene documented in this encounter Additional Health Concerns Infection Onset Date Last Indicated Resolved Time C. difficile Rule-Out 01/27/2025 01/27/20252024 12:12 AM EDT documented as of this encounter Care Teams Quality Assurance Specialist Relationship Specialty Start Date End Date Caridad Oliver APRN [address] [place] [address] PCP - General 02/22/21 documented as of this encounter
--- OUTSIDE RECORDS SUMMARY | 2025-04-05 12:25 | XMS_ITS | Encounter Summary ---
Author Organization Healthcare Address [address] [place] [address] Care Team Providers Care Strap Sewer Name Role Phone Caridad Oliver FLIGHT DYNAMICIST Primary Care Provider [phone] Encounter Details Date Type Department Care Team (Late Contact Info) Description 12/23/2022 Orders Only External Location [address] [place] [phone] Margarita Calvo, FLIGHT DYNAMICIST [address] [place] [address] Social History Tobacco Use Types Packs/Day Years [...] AM EST Appointment P[facility] H Radiology [address] [place] [phone] 08/31/2025 9:30 AM EST Office Visit Pav CC Head, Neck & Respiratory [address] [facility], [address]nd [place] [phone] Jeffery Devine, DO [address] [facility] [address] [place] [phone] documented as of this encounter Procedures Procedure Name Priority Date/Time Associated Diagnosis Comments XR OUTSIDE IMAGES 12/23/2022 11:09 AM EDT documented in this encounter Results * XR OUTSIDE IMAGES (12/23/2022 11:09 AM EDT) Anatomical Region Laterality Modality Radiographic Laura ging 12/23/2022 11:0 9 AM EDT us Margarita Calvo FLIGHT DYNAMICIST IMG XR PROCEDURES Final Resul t documented in this encounter Visit Diagnoses Not on filedocumented in this encounter Additional Health Concerns Infection Onset Date Last Indicated Resolved Time C. difficile Rule-Out 01/27/2025 01/27/20252024 12:12 AM EDT documented as of this encounter Care Teams Strap Sewer Relationship Specialty Start Date End Date Caridad Oliver APRN [address] [place] [address] PCP - General 02/22/21 documented as of this encounter
== END 2025-04-05 23:59 | disposition home or self-care (01) ==
LOC: RAD 12:21
PROVIDERS: PCP Internal Medicine Adolescent Medicine; Visit Provider Physician Assistant
DX: K44.9 Diaphragmatic hernia without obstruction or gangrene (principal); J20.9 Acute bronchitis, unspecified
CPT/HCPCS: 71046